=== PATIENT | female | born 1970 | race Caucasian/White ===

== ENCOUNTER 2022-11-15 09:47 | Outpatient (OUT) | payer OTHER, SELFPAY ==
--- NOTE | 2022-11-15 10:05 | XR_ITS ---
[address] [address] Patient Name: KAROL MARCOS MRN: [id number] date: 1970 Sex: F Assigned Patient Location: [facility] Current Patient Location: [facility] Accession/Order Number: [id number] Exam Date: 11/15/2022 10:05 Report Date: 11/15/2022 11:44 At the request of: JANETTE ZARATE Procedure: XR knee LT 3V PROCEDURE: XR knee LT 3V COMPARISON: None. HISTORY: Left knee pain M25.562 FINDINGS: BONES:No acute fracture or dislocation. Minimal degenerative changes of the medial compartment with marginal osteophyte formation SOFT TISSUES:Negative. No visible soft tissue swelling. EFFUSION:None visible. OTHER: Negative. XR/XR knee LT 3V IMPRESSION: Minimal degenerative changes of the medial compartment Electronically authenticated by: KODY GARRISON Date: 11/15/2022 11:44
== END 2022-11-15 09:48 | disposition home or self-care (01) ==
LOC: RAD 09:53
PROVIDERS: PCP Nurse Practitioner Family; Visit Provider Nurse Practitioner Family
DX: M25.562 Pain in left knee (principal)
CPT/HCPCS: 73562

== ENCOUNTER 2022-12-10 06:41 | Outpatient (OUT) | payer OTHER, SELFPAY ==
--- NOTE | 2022-12-10 06:45 | MR_ITS ---
[place] [id number] Patient Name: KAROL MARCOS MRN: [id number] date: 1970 Sex: F Assigned Patient Location: MRI Current Patient Location: MRI Accession/Order Number: [id number] Exam Date: 12/10/2022 07:00 Report Date: 12/10/2022 15:14 At the request of: DILEEP STONE Procedure: MR knee LT wo con EXAM: MR knee LT wo con REASON FOR EXAM: Internal Derangement OF Left Knee M25.92. TECHNIQUE: Multiplanar, multisequence imaging of the left knee was performed without contrast COMPARISON: Plain radiograph 11/15/2022. FINDINGS: Laterally, the iliotibial band, fibular collateral ligament, popliteus tendon and biceps tendon are intact. The ACL is intact. The lateral meniscus demonstrates normal morphology with globular intrasubstance signal, which does not meet MRI criteria for tear. Intermediate grade chondrosis of the lateral compartment. Medially, the medial collateral ligament is intact. The PCL is intact. There is complete radial tear involving the body and anterior horn junction of the medial meniscus. Meniscal extrusion. There is also horizontal undersurface oblique tear extending into the body posterior horn junction. Diffuse high-grade chondrosis of the medial compartment with subchondral marrow edema. Marginal osteophytes are present. The extensor mechanism is intact. Intermediate to high-grade chondrosis of the patellofemoral cartilage, most notable in the inferior median ridge. The bone marrow signal is without fracture. Moderate size joint effusion. The regional musculature is without muscle strain or tendon tear. MR/MR knee LT wo con IMPRESSION: 1. Complex medial meniscal tear including complete radial tear of the body and anterior horn junction. 2. 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 3. Joint effusion Electronically authenticated by: BRITTNI TIDWELL Date: 12/10/2022 15:14
== END 2022-12-10 06:42 | disposition home or self-care (01) ==
LOC: MRI 06:41
PROVIDERS: PCP Nurse Practitioner Family; Visit Provider Orthopaedic Surgery
DX: M23.92 Unspecified internal derangement of left knee (principal)
CPT/HCPCS: 73721

== ENCOUNTER 2023-01-02 10:29 | Outpatient (RCR) | payer OTHER, SELFPAY | END 2023-01-23 16:49 | disposition home or self-care (01) | LOC: PT 10:29 | PROVIDERS: PCP Nurse Practitioner Family; Visit Provider Orthopaedic Surgery | DX: M25.562 Pain in left knee (principal); M23.92 Unspecified internal derangement of left knee; S83.242D Other tear of medial meniscus, current injury, left knee, subsequent encounter; M17.12 Unilateral primary osteoarthritis, left knee | CPT/HCPCS: 97110; 97116; 97161; 97530 ==

== ENCOUNTER 2023-01-23 07:29 | Outpatient (OUT) | payer OTHER, SELFPAY ==
--- NOTE | 2023-01-23 07:38 | XR_ITS ---
The [address] [address] Patient Name: KAROL MARCOS MRN: [id number] date: 1970 Sex: F Assigned Patient Location: [facility] Current Patient Location: [facility] Accession/Order Number: [id number] Exam Date: 01/23/2023 07:42 Report Date: 01/23/2023 08:23 At the request of: JORDI MAST Procedure: XR abdomen 1V EXAMINATION: XR abdomen 1V HISTORY: Kidney Stone N20.0 COMPARISON: XR KUB 07/18/2022 FINDINGS: KIDNEY/URETER - RIGHT: No visible renal or ureteral calcifications. KIDNEY/URETER - LEFT: No visible renal or ureteral calcifications. PELVIS: No visible ureteral stones. Stable pelvic calcifications compatible with phleboliths. BOWEL: No abnormal dilation or deviation. BONES: No acute abnormality. OTHER: Negative. No abnormal gaseous collections. XR/XR abdomen 1V IMPRESSION: 1. No appreciable urinary tract calculi. Evaluation is slightly limited by dense overlying bowel content. Electronically authenticated by: ZENAIDA TALBOT Date: 01/23/2023 08:23
== END 2023-01-23 07:30 | disposition home or self-care (01) ==
LOC: RAD 07:30
PROVIDERS: PCP Nurse Practitioner Family; Visit Provider Urology
DX: N20.0 Calculus of kidney (principal)
CPT/HCPCS: 74018

== ENCOUNTER 2023-04-30 09:23 | Outpatient (OUT) | payer OTHER, SELFPAY ==
--- NOTE | 2023-04-30 09:25 | MM_ITS ---
Patient Name: KAROL MARCOS MR#: [id number] : 1970 Exam Date: 04/30/2023 Ordering Doctor: DR Neymar Win . RADIOLOGY REPORT PROCEDURE: MM TOMOSYNTHESIS SCREENING BI COMPARISON: MG MAMM SCREEN 3D ANN-MARIE CAD, 03/21/2021. MG MAMM SCREEN 3D ANN-MARIE CAD, 03/27/2022. INDICATIONS: screening Calculator Name NCI Breast Cancer Risk Assessment Tool 5 Year Breast Cancer Risk 1.90% Lifetime Breast Cancer Risk 13.60% Personal Breast Cancer No Personal Ovarian Cancer No Treatments None Family Cancers Father with bone & prostate cancer at age 69. LOCATION: [facility] BREAST COMPOSITION: Heterogeneously dense,which may obscure small masses. FINDINGS: DIAGNOSTIC CATEGORY 0--INCOMPLETE: NEED ADDITIONAL IMAGING EVALUATION. Scattered benign-appearing nodules are present. Scattered benign-appearing calcifications are present. Scattered benign-appearing lymph nodes are present. RIGHT BREAST: New cluster of very faint microcalcifications and increased density, ill-defined measuring 2.2 x 1.5 x 1.1 cm upper-outer quadrant, mid to posterior breast. Spot magnification and ultrasound follow-up is recommended. LEFT BREAST: No significant suspicious finding. RECOMMENDATIONS: ADDITIONAL MAMMOGRAPHIC VIEWS REQUIRED: RIGHT BREAST - spot magnification ULTRASOUND: RIGHT BREAST PLEASE NOTE: A NORMAL MAMMOGRAM DOES NOT EXCLUDE THE POSSIBILITY OF BREAST CANCER. A CLINICALLY SUSPICIOUS PALPABLE LUMP SHOULD BE BIOPSIED. Dictated by: Elijah Ricks MD on 04/30/2023 at 10:34 Approved by: Elijah Ricks MD on 04/30/2023 at 10:37
--- OUTSIDE RECORDS SUMMARY | 2023-04-30 09:39 | XMS_ITS | CCD ---
Author Name Unknown Address [address] [place] [address] Organization [facility] Care Team Providers Care Customer Support Advisor Name Role Phone Sue Win Primary Care Provider [phone] Sue Win Primary Care Physician MD Eros Mast Attending Provider MD Sue Win Primary Care Provider [phone] BERHANE YANG Referring Unavailable SUE WIN Primary Care Unavailable YAIMA ., DR ROGERS Consulting Unavailable HOY ., DR ROGERS Primary Care Unavailable HOY ., DR ROGERS Attending Unavailable HOY ., DR ROGERS Admitting Unavailable ZIEBER, DR TUCKER Martin Consulting Unavailable HOY ., DR ROGERS Consulting Unavailable HOY ., DR ROGERS Primary Care Unavailable HOY ., DR ROGERS Attending Unavailable HOY ., DR ROGERS Admitting Unavailable ZIEBER, DR TUCKER Martin Consulting Unavailable TIMMIS, DR GABRIEL Consulting Unavailable HOY ., DR ROGERS Primary Care Unavailable TIMMIS, DR GABRIEL Attending Unavailable TIMMIS, DR GABRIEL Admitting Unavailable [place], DR KODY Pappas Consulting Unavailable HOY ., DR ROGERS Consulting Unavailable HOY ., DR ROGERS Attending Unavailable HOY ., DR ROGERS Admitting Unavailable HOY ., DR ROGERS Primary Care Unavailable KEZIA, DR EROS Mckeon Consulting Unavailable MADDY LAUGNA Consulting Unavailable AGUBOSIDEYANIRA Colvin Consulting Unavailable SHRADDHA, GEORGE Consulting Unavailable COOK, DR EROS Mckeon Consulting Unavailable TYREEY ., DR ROGERS Primary Care Unavailable COOK, DR EROS Mckeon Attending Unavailable KEZIA, DR EROS Mckeon Admitting Unavailable ZIEBOFELIA, DR TUCKER Martin Consulting Unavailable COOK, DR EROS Mckeon Consulting Unavailable HOY ., DR ROGERS Primary Care Unavailable COOK, DR EROS Mckeon Attending Unavailable COOK, DR EROS Mckeon Admitting Unavailable HOY ., DR ROGERS Consulting Unavailable YAIMA ., DR ROGERS Primary Care Unavailable YAIMA Thakkar, DR ROGERS Attending Unavailable YAIMA ., DR ROGESR Admitting Unavailable [place], DR KODY Pappas Consulting Unavailable KEZIA, DR EROS Mckeon Consulting Unavailable YAIMA ., DR ROGERS Primary Care Unavailable COOK, DR EROS Mckeon Attending Unavailable KEZIA, DR EROS Mckeon Admitting Unavailable DAHIANA, DR TUCKER Martin Consulting Unavailable KEZIA, DR EROS Mckeon Consulting Unavailable YAIMA ., DR ROGERS Primary Care Unavailable COOK, DR EROS Mckeon Attending Unavailable COOK, DR EROS Mckeon Admitting Unavailable DAHIANA, DR TUCKER Martin Consulting Unavailable Shubham Rodrigues Unavailable MD Sue Win Primary Care Provider [phone] MD Shubham Rodrigues Attending Provider Eros MAST Attending Unavailable Eros MAST Attending Unavailable KEZIA, Eros Mckeon Attending Unavailable Sue Win Primary Care Unavailable Ravi, Shubham Admitting Unavailable Shubham Rodrigues Attending Unavailable Sue Win Primary Care Unavailable Olexa, Shubham Admitting Unavailable Olexa, Shubham Attending Unavailable Allergies Allergy Classification Reported Allergen(s) Allergy Type Date of Onset Reaction(s) Facility (1 source) No Known Medication Allergies; Translations: [No Known Medication Allergies] Propensity to adverse reactions (disorder) [facility] Repository Medications Current Medications Medication Drug Class(es) Dates Sig (Normalized) Sig (Original) acetaminophen 325 mg / HYDROcodone bitartrate 5 mg oral tablet (10 sources) Opioid Agonist Start: 12-31-2022 take 1 tablet by mouth every four hours as needed for pain HYDROcodone-Aceta minophen 5-325 MG 1 tablet as needed for pain Orally up to every 4 hrs for 5 days PB: [id number] Dec, Active Start: 11-29-2021 End: 12-13-2021 take 1 tablet by mouth every four to six hours Hydrocodone-Acetaminophen Discontinued 1 TAB PO EVERY 4-6 HOURS 10 3 November 29, 2021 December 13, 2021 2:25pm Claritin-D 12 Hour (6 sources) Claritin-D 12 Ho ur Active diclofenac sodium 75 mg delayed release oral tablet (8 sources) Nonsteroidal Anti-inflammatory Drug Start: 11-29-2021 take 75 mg by mouth twice daily Diclofenac Sodium Active 75 MG PO Twice daily November 29, 2021 12:00am Start: 01-19-2019 take 75 mg by mouth twice caden y diclofenac sodium 75 mg, Oral, BID Start Date: 01/19/19 Status: Ordered dicyclomine hydrochloride 20 mg oral tablet (16 sources) Anticholinergic Start: 11-21-2021 take 20 mg by mouth twice daily Dicyclomine Active 20 MG PO Twice daily November 29, 2021 12:00am Start: 11-03-2018 take 1 tablet by gee th every eight hours Dicyclomine HCl 20 MG 1 tablet Orally Three times a day for 30 days Oct, Active esomeprazole 40 mg oral tablet (13 sources) Proton Pump Inhibitor Start: 12-13-2021 take 40 mg by mouth once daily in the morning Esomeprazole Magnesium Active 40 MG PO Every morning December 13, 2021 12:00am Start: 12-13-2021 take 40 mg by mouth once daily Esomeprazole Magnesium Active 40 MG PO Daily December 13, 2021 12:00am Start: 12-13-2021 take 40 mg by mouth once daily Esomeprazole Magnesium Active 40 MG PO Daily December 13, 2021 12:00am Start: 02-09-2020 take 2 capsules by m outh once daily [facility] ESOMEPRAZOLE MAGNESIUM 20 MG delayed release capsule TAKE 2 CAPSULES BY MOUTH EVERY DAY 0 02/09/2020 Active Esomeprazole Mag nesium Active Phylicia (3 sources) Histamine-1 Receptor Antagonist Start: 11-21-2021 Phylicia Oral Start Date: 11/21/21 Status: Ordered take 1 tablet by mouth once caden y fexofenadine (PHYLICIA ALLERGY) 180 MG tablet Take 180 mg by mouth daily 0 Active hyoscyamine sulfate 0.125 mg oral tablet (8 sources) Start: 12-25-2022 take 0.125 mg by mouth once daily Hyoscyamine Sulfate Active 0.125 MG PO Daily December 25, 2022 12:00am Start: 02-04-2020 take 1 tablet under the tongue four times daily as needed for pain hyoscyamine (LEVSIN/SL) 125 MCG sublingual tablet DISSOLVE 1 TABLET UNDER THE TONGUE 4 TIMES DAILY NEEDED FOR ABDOMINAL PAIN 0 02/04/2020 Active Lactobacillus Combination No.4 (Probiotic) 3 billion cell Capsule (1 source) Start: 12-25-2022 take 3 capsules by mouth once daily at bedtime Lactobacillus Combination No.4 (Probiotic) 3 billion cell Capsule Active 1 CELL PO Daily at bedtime December 25, 2022 12:00am levothyroxine sodium 0.05 mg oral tablet (16 sources) l-Thyrox ine Start: 11-29-2021 take 50 ug by mouth once daily in the morning Levothyroxine Active 50 MCG PO Every morning November 29, 2021 12:00am Start: 02-07-2019 take 1 tablet by gee th once daily levothyroxine (SYNTHROID) 50 MCG tablet TAKE 1 TABLET BY MOUTH EVERY DAY 11 02/07/2019 Active Start: 01-19-2019 take 1 tablet by gee th once daily levothyroxine 50 mcg (0.05 mg) Tab 50 microgram = 1 tab(s), Oral, Daily Start Date: 01/19/19 Status: Ordered Loratadine / Pseudoephedrine (3 sources) alpha-Adrenergic Agonist Start: 01-19-2019 take 1 tablet by mouth every twelve hours Claritin-D 1 tab(s), Oral, q12hr Start Date: 01/19/19 Status: Ordered Loratadine-Pseud oephedrine (CLARITIN-D 24 HOUR PO) Indications: Routine gynecological examination Take by mouth. 0 Active pantoprazole 40 mg delayed release oral tablet (10 sources) Proton Pump Inhibitor Start: 12-27-2018 take 1 tablet by mouth once daily Protonix 40 mg Tab-DR 40 mg = 1 tab(s), Oral, Daily Start Date: 01/19/19 Status: Ordered Completed/Discontinued Medications Medication Drug Class(es) Dates Sig (Normalized) Sig (Original) ciprofloxacin 500 mg oral tablet (7 sources) Quinolone Antimicrobial Start: 12-21-2021 End: 12-25-2022 take 1 tablet by mouth every two hours Ciprofloxacin Hcl (Cipro) 500 mg tablet Discontinued 500 MG PO Q12H December 21, 2021 12:00am December 25, 2022 8:39am administer dose at least 2 hrs before/6 hrs after dairy products, calcium, zinc, and/or iron-containing products Start: 12-21-2021 take 1 tablet by gee th every two hours Ciprofloxacin Hcl (Cipro) 500 mg tablet Active 500 MG PO Q12H December 21, 2021 12:00am administer dose at least 2 hrs before/6 hrs after dairy products, calcium, zinc, and/or iron-containing products Start: 12-21-2021 take 1 tablet by gee th every two hours Ciprofloxacin Hcl (Cipro) 500 mg tablet Active 500 MG PO Q12H December 21, 2021 12:00am administer dose at least 2 hrs before/6 hrs after dairy products, calcium, zinc, and/or iron-containing products Start: 12-21-2021 take 1 tablet by gee th every two hours Ciprofloxacin Hcl (Cipro) 500 mg tablet Active 500 MG PO Q12H December 21, 2021 12:00am administer dose at least 2 hrs before/6 hrs after dairy products, calcium, zinc, and/or iron-containing products Start: 11-21-2021 ciprofloxacin 500 mg Tab 500 mg = 1 tab(s) Start Date: 11/21/21 Status: Ordered oxybutynin chloride 5 mg oral tablet (13 sources) Cholinergic Muscarinic Antagonist Start: 11-29-2021 End: 12-25-2022 take 5 mg by mouth twice daily Oxybutynin Chloride Discontinued 5 MG PO Twice daily November 29, 2021 12:00am December 25, 2022 8:41am Start: 11-21-2021 Oxytrol 5 mg T ab 5 mg = 1 tab(s) Start Date: 11/21/21 Status: Ordered sucralfate 1000 mg oral tablet (15 sources) Aluminum Complex Start: 11-29-2021 End: 12-25-2022 take 1 g by mouth twice daily Sucralfate Discontinued 1 GM PO Twice daily November 29, 2021 12:00am December 25, 2022 8:41am Start: 11-21-2021 sucralfate tab 1 gm = 1 tab(s) Start Date: 11/21/21 Status: Ordered Start: 11-21-2021 sucralfate tab 1 gm = 1 tab(s) Start Date: 11/21/21 Status: Ordered take 10 mL by mouth twice daily Sucralfate 1 GM/10ML 10 mL on an empty stomach Orally Twice a day Active take 1 tablet by gee th twice daily sucralfate (CARAFATE) 1 GM tablet Take 1 g by mouth 2 times daily 0 Active Problems Active Problems Problem Classification Problem Date Documented Da te Episodic/Chronic Abdominal pain (15 sources) Unspecified abdominal pain; Translations: [Right upper quadrant pain] Onset: 11-13-2021 Episodic Calculus of urinary tract (20 sources) Ureteric stone; Translations: [Calculus of ureter] Onset: 11-16-2021 Episodic Diseases of white blood cells (1 source) Elevated white blood cell count, unspecified; Translations: [ELEVATED WHITE BLOOD CELL COUNT UNS] Onset: 11-16-2021 Chronic Essential hypertension (1 source) Essential (primary) hypertension; Translations: [ESSENTIAL PRIMARY HYPERTENSION] Onset: 11-16-2021 Chronic Gastritis and duodenitis (6 sources) Bile-induced gastritis; Translations: [Other gastritis without bleeding] Episodic Joint disorders and dislocations; trauma-related (5 sources) Unspecified internal derangement of right knee; Translations: [Chondromalacia patellae, right knee] Onset: 12-12-2021 Chronic Joint disorders and dislocations; trauma-related (8 sources) Derangement of left knee; Translations: [Unspecified internal derangement of left knee] Chronic Joint disorders and dislocations; trauma-related (4 sources) Other tear of medial meniscus, current injury, right knee, initial encounter; Translations: [Other tear of medial meniscus, current injury, right knee, subsequent encounter] Onset: 12-13-2021 Episodic Joint disorders and dislocations; trauma-related (3 sources) Other tear of medial meniscus, current injury, left knee, initial encounter Episodic Lymphadenitis (2 sources) Cervical lymphadenopathy 01-19-2019 Episodic Osteoarthritis (20 sources) Unilateral primary osteoarthritis, right knee; Translations: [Osteoarthritis of right knee joint] Onset: 10-06-2021 Chronic Other ear and sense organ disorders (2 sources) Otalgia 01-19-2019 Episodic Other female genital disorders (1 source) Vaginal discharge; Translations: [Other specified noninflammatory disorders of vagina] Episodic Other gastrointestinal disorders (6 sources) Irritable bowel syndrome; Translations: [Irritable bowel syndrome without diarrhea] Chronic Other gastrointestinal disorders (6 sources) Abdominal bloating; Translations: [Abdominal distension (gaseous)] Episodic Other non-traumatic joint disorders (7 sources) Pain in right knee; Translations: [PAIN IN RIGHT KNEE] Onset: 10-03-2021 Episodic Other non-traumatic joint disorders (2 sources) Pain in left knee Episodic Other upper respiratory disease (2 sources) Congestion of nasal sinus 01-19-2019 Episodic Residual codes; unclassified (3 sources) Other specified postprocedural states Episodic Thyroid disorders (7 sources) Thyroid nodule; Translations: [Nontoxic single thyroid nodule] Onset: 11-16-2021 01-19-2019 Chronic Unclassified (1 source) Patient encounter status; Translations: [Women's annual routine gynecological examination] Unclassified (1 source) CONTACT W/AND (SUSP) EXPOS COVID-19; Translations: [CONTACT W/AND (SUSP) EXPOS COVID-19] Onset: 11-16-2021 Unclassified (1 source) Complex tear of medial meniscus, current injury, left knee, initial encounter; Translations: [Complex tear of medial meniscus, current injury, left knee, initial encounter] Onset: 01-01-2023 Unclassified (1 source) Encounter for preprocedural laboratory examination; Translations: [Encounter for preprocedural laboratory examination] Onset: 12-25-2022 Past or Other Problems Problem Classification Problem Date Documented Da te Episodic/Chronic Bacterial infection; unspecified site (1 source) Unspecified Escherichia coli [E. 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] Onset: 11-16-2021 Episodic Other screening for suspected conditions (not mental disorders or infectious disease) (4 sources) Encounter for screening mammogram for malignant neoplasm of breast; Translations: [ENC SCR MAMMO MALIG NEOPLASM BREAST] Onset: 03-27-2022 Episodic Residual codes; unclassified (1 source) Family history of malignant neoplasm of other organs or systems; Translations: [FAM HX MALIG NEOPLASM OTH ORGN/SYS] Onset: 03-30-2022 Episodic Sprains and strains (1 source) Sprain of medial collateral ligament of right knee, initial encounter; Translations: [SPRAIN MCL RIGHT KNEE INITIAL ENC] Onset: 12-13-2021 Episodic Urinary tract infections (1 source) Pyonephrosis; Translations: [PYONEPHROSIS] Onset: 11-16-2021 Episodic Results Test Name Value Interpretation Reference Range Facility Ambulatory Visit Summaryon 1 Ambulatory Visit Summary KAROL PALSCENCIA :1970 Visit Date:01/27/2023 Ambulatory Visit Instructions Your Diagnosis Kidney stone Tests Performed Urnls Dip Stick Auto w/o Microscopy POC 32965 XR Abdomen 1 View -- Results Pending -- Please visit your patient portal for your results or contact your primary care physician. Your Care Team Attending Physician - Eros MAST MD Primary Care Physician - Sue Win MD This Is Your Medications List Contact prescribing physician if questions or concerns aspirin (aspirin 81 mg Chew Tab) diclofenac (diclofenac sodium) dicyclomine (dicyclomine 20 mg Tab) fexofenadine (Phylicia) levothyroxine (levothyroxine 50 mcg (0.05 mg) Tab) lisinopril (lisinopril 10 mg Tab) loratadine-pseudoep hedrine (Claritin-D) pantoprazole (Protonix 40 mg Tab-DR) sucralfate (sucralfate tab) Procedures Performed ESWL - Extracorporeal shockwave lithotripsy for renal calculus (12/21/2021), Cystoscopic insertion of ureteric stent (11/29/2021), Cystoscope (11/13/2021), Colonoscopy (08/26/2018), D&C - Dilatation and curettage, Diagnostic endoscopy. Discharge Vitals Heart Rate (Peripheral) 72 Blood Pressure 132/81 Height 164 cm Height 65 in Weight 108 kg Weight 237.6 lb BMI 40.15 What to do next Scheduled Follow-Up Appointments Friday 8:00 AM EDT With: Eros MAST MD Where: [facility] Patient Educationon 01-28-20 23 Patient Education Nephrology Dietary Guidelines to Help Prevent Kidney Stones Kidney stones are deposits of minerals and salts that form inside your kidneys. Your risk of developing kidney stones may be greater depending on your diet, your lifestyle, the medicines you take, and whether you have certain medical conditions. Most people can lower their chances of developing kidney stones by following the instructions below. Your dietitian may give you more specific instructions depending on your overall health and the type of kidney stones you tend to develop. What are tips for following this plan? Reading food labels ? Choose foods with no salt added or low-salt labels. Limit your salt (sodium) intake to less than 1,500 mg a day. ? Choose foods with calcium for each meal and snack. Try to eat about 300 mg of calcium at each meal. Foods that contain 200?500 mg of calcium a serving include: ? 8 oz (237 mL) of milk, calcium-fortifiedno n-dairy milk, and calcium-fortifiedfr uit juice. Calcium-fortified means that calcium has been added to these drinks. ? 8 oz (237 mL) of kefir, yogurt, and soy yogurt. ? 4 oz (114 g) of tofu. ? 1 oz (28 g) of cheese. ? 1 cup (150 g) of dried figs. ? 1 cup (91 g) of cooked broccoli. ? One 3 oz (85 g) can of sardines or mackerel. Most people need 1,000?1,500 mg of calcium a day. Talk to your dietitian about how much calcium is recommended for you. Shopping ? Buy plenty of fresh fruits and vegetables. Most people do not need to avoid fruits and vegetables, even if these foods contain nutrients that may contribute to kidney stones. ? When shopping for convenience foods, choose: ? Whole pieces of fruit. ? Pre-made salads with dressing on the side. ? Low-fat fruit and yogurt smoothies. ? Avoid buying frozen meals or prepared deli foods. These can be high in sodium. ? Look for foods with live cultures, such as yogurt and kefir. ? Choose high-fiber grains, such as whole-wheat breads, oat bran, and wheat cereals. Cooking ? Do not add salt to food when cooking. Place a salt shaker on the table and allow each person to add his or her own salt to taste. ? Use vegetable protein, such as beans, textured vegetable protein (TVP), or tofu, instead of meat in pasta, casseroles, and soups. Meal planning ? Eat less salt, if told by your dietitian. To do this: ? Avoid eating processed or pre-made food. ? Avoid eating fast food. ? Eat less animal protein, including cheese, meat, poultry, or fish, if told by your dietitian. To do this: ? Limit the number of times you have meat, poultry, fish, or cheese each week. Eat a diet free of meat at least 2 days a week. ? Eat only one serving each day of meat, poultry, fish, or seafood. ? When you prepare animal protein, cut pieces into small portion sizes. For most meat and fish, one serving is about the size of the palm of your hand. ? Eat at least five servings of fresh fruits and vegetables each day. To do this: ? Keep fruits and vegetables on hand for snacks. ? Eat one piece of fruit or a handful of berries with breakfast. ? Have a salad and fruit at lunch. ? Have two kinds of vegetables at dinner. ? Limit foods that are high in a substance called oxalate. These include: ? Spinach (cooked), rhubarb, beets, sweet potatoes, and Togolese chard. ? Peanuts. ? Potato chips, gambian fries, and baked potatoes with skin on. ? Nuts and nut products. ? Chocolate. ? If you regularly take a diuretic medicine, make sure to eat at least 1 or 2 servings of fruits or vegetables that are high in potassium each day. These include: ? Avocado. ? Banana. ? Sabine, prune, carrot, or tomato juice. ? Baked potato. ? Cabbage. ? Beans and split peas. Lifestyle ? Drink enough fluid to keep your urine pale yellow. This is the most important thing you can do. Spread your fluid intake throughout the day. ? If you drink alcohol: ? Limit how much you use to: ? 0?1 drink a day for women who are not . ? 0?2 drinks a day for men. ? Be aware of how much alcohol is in your drink. In the [place] one drink equals one 12 oz bottle of beer (355 mL), one 5 oz glass of wine (148 mL), or one 1? oz glass of hard liquor (44 mL). ? Lose weight if told by your health care provider. Work with your dietitian to find an eating plan and weight loss strategies that work best for you. General information ? Talk to your health care provider and dietitian about taking daily supplements. You may be told the following depending on your health and the cause of your kidney stones: ? Not to take supplements with vitamin C. ? To take a calcium supplement. ? To take a daily probiotic supplement. ? To take other supplements such as magnesium, fish oil, or vitamin B6. ? Take [id number] and prescription medicines only as told by your health care provider. These include supplements. What foods should I limit? Limit your in (more content not included)... Normal Posey [facility] Urology Office/Clinic Noteon 01-27-2023 Urology Office/Clinic Note Chief Complaint Pt is here for 6 month w/ KUB HPI Staff 52 yo female here for 6 month f/u with KUB. Previous Dx: kidney stone. S/p ESWL 12/21/21, Cysto/stent placement 11/29/21, and Cysto 11/13/21. Litholink done 08/12/22. KUB done 01/23/23 at [facility]. Dysuria: denies Incomplete bladder emptying: denies Hematuria: denies Frequency: denies Urgency: denies Nocturia: 1x a night Stream: steady stream Leaking: denies Post void dripping: denies Wearing pads/ Depends: denies Urge incontinence: denies Stress incontinence: mild coughing Incontinence without Sensory Awareness: denies Abdominal pain: denies Flank pain: denies Sexual complaints: _ History of Present Illness Tests reviewed: reviewed UA and KUB. I have reviewed the previous health record information and history for this patient from . I have reviewed and verified the staff HPI to be accurate for this encounter. There have been no associated fever, chills, flank pain, or blood in the urine. Denies any urinary infections since last encounter. Review of Systems PHQ Score Initial Depression Screen Score: 0 ROS - Provider Constitutional: denies weight loss, denies hot flashes. Eyes: denies eye problems. Gastrointestinal: denies nausea, denies vomiting. Cardiovascular: denies chest pain or angina. Integumentary: no dryness Musculoskeletal: denies musculoskeletal symptoms. ENMT: denies otolaryngeal symptoms. Respiratory: no shortness of breath. Heme/Lymph: denies easy bleeding tendency, denies easy bruising tendency. Psychiatric: no confusion, no anxiety. Genitourinary: See HPI. Physical Exam Vitals & Measurements HR: 72(Peripheral) BP: 132/81 HT: 65 in HT: 164 cm WT: 108 kg WT: 237.6 lb BMI: 40.15 General Appearance: alert , no acute distress, well nourished, well developed female. Genitourinary: bladder nonpalpable, no flank pain. Assessment/Plan 1. Kidney stone (N20.0: Calculus of kidney) S/p Cysto 11/13/21 S/p Cysto/stent placement 11/29/21 S/p ESWL 12/21/21 KUB 07/18/22 - Bilateral nephrolithiasis 2mm in both kidneys. LithoLink 08/12/22 - low void volume, urine citrate is elevated, calcium in urine is slightly elevated KUB 01/23/23 - no stones noted, evaluation limited due to dense bowel overlying content Pt denies passing any stones recently. Discussed the imaging findings with pt, no stones noted. Discussed LithoLink workup with pt, pt needs to drink more fluids and decrease sodium intake. Will continue to monitor. Follow up in 1 yr w/ KUB. All questions/concerns were discussed. Pt to call the office if she encounters any issues prior. Pt acknowledges understanding. -Increase fluids. -Decrease sodium intake. -Will order KUB Overall she is doing well. No stones passed. Denies gross hematuria. KUB demonstrates no obvious calculi but the previous x-ray had demonstrated small bilateral stones up to 2 mm. Most likely the stones are still present but this not well seen secondary to overlying bowel gas etc. We then went over her 24-hour urine analysis and as noted we will recommend decreased sodium intake which hopefully will decrease calcium output in the urine. She will also attempt to increase urine volume. 1 year KUB at this point and she knows to call for difficulties prior to that visit Follow-up With When Contact Information KEZIA ARREGUIN, Eros Mckeon, URL In [address] [id number]- Additional Instructions: w/KUB Patient Education Dietary Guidelines to Help Prevent Kidney Stones IRadha, personally scribed for Dr. Mast on 01/27/2023 08:33:07. . Documentation recorded by the scribe, Radha Townsend, accurately reflects the services(s) I performed and decisions made by me. Authenticated by Dr. Mast on 01/27/2023 08:49:28. Portions of this record may have been created with voice recognition artificial intelligence software, specifically [employer] and or [employer]. Substitutions may have occurred due to the inherent limitations of voice recognition and artificial intelligence software. Problem List/Past Medical History Ongoing Cervical adenopathy History of kidney stones Kidney stone Right ear pain Sinus congestion Thyroid nodule Ureteral stone Historical No qualifying data Procedure/Surgical History ESWL - Extracorporeal shockwave lithotripsy for renal calculus (12/21/2021), Cystoscopic insertion of ureteric stent (11/29/2021), Cystoscope (11/13/2021), Colonoscopy (08/26/2018), D&C - Dilatation and curettage, Diagnostic endoscopy. Medications Phylicia, Oral aspirin 81 mg Chew Tab, Chewed, Daily Claritin-D, 1 tab(s), Oral, q12hr diclofenac sodium, 75 mg, Oral, BID dicyclomine 20 mg Tab, 20 mg= 1 tab(s) levothyroxine 50 mcg (0.05 mg) Tab, 50 mcg= 1 tab(s), Oral, Daily lisinopril 10 mg Tab Protonix 40 mg T (more content not included)... Normal [facility] Comment on above: Result Comment: Elec tronically Signed By: Eros MAST MD\.br\Date and Time Signed: 01/27/23 08:50 EDT\.br\Electronically Co-Signed By: Radha Townsend\.br\Date and Time Co-Signed: 01/27/23 08:33 EDT RAD - MISCon 01-24-2023 RAD - MISC [id number] [id number]:127 Normal [facility] Alanine aminotransferase [En zymatic activity/volume] in Serum or PlasmaOrdered By: Shubham Rodrigues on 12-25-2022 ALT [Catalytic activity/Vol] 27 U/L 7-52 [facility] Albumin [Mass/volume] in Ser um or Plasma by Bromocresol green (BCG) dye binding methoOrdered By: Shubham Rodrigeus on 12-25-2022 Albumin BCG dye [Mass/Vol] 3.9 g/dL 3.5-5.7 [facility] Alkaline phosphatase [Enzyma tic activity/volume] in Serum or PlasmaOrdered By: Shubham Rodrigues on 12-25-2022 ALP [Catalytic activity/Vol] 138 U/L 34-104 [facility] Aspartate aminotransferase [ Enzymatic activity/volume] in Serum or PlasmaOrdered By: Shubham Rodrigues on 12-25-2022 AST [Catalytic activity/Vol] 20 U/L 13-39 [facility] Basophils Auto (Bld) [#/Vol] Ordered By: Shubham Rodrigues on 12-25-2022 Basophils (Bld) [#/Vol] 0.1 10*3/uL 0.0-0.2 [facility] Basophils/100 WBC Auto (Bld) Ordered By: Shubham Rodrigues on 12-25-2022 Basophils/100 WBC (Bld) 0.8 % . [facility] Bilirubin.total [Mass/volume ] in Serum or PlasmaOrdered By: Shubham Rodrigues on 12-25-2022 Bilirubin [Mass/Vol] 0.4 mg/dL 0.3-1.0 [facility] CMP with reflex to A1Con Albumin [Mass/Vol] 3.9 g/dL Normal 3.5-5.7 [facility] Comment on above: Performed By: #### C BC, CMP wRFX A1C #### [facility] [address] Albumin/Globulin [Mass ratio] 1.4 {ratio} Normal [facility] Comment on above: Performed By: #### C BC, CMP wRFX A1C #### [facility] [address] [place] [address] [place] ALP [Catalytic activity/Vol] 138 U/L High 34-104 [facility] Comment on above: Result Comment: PERF ORMED BY: [place] [address] PATHOLOGIST ANALYTICS INTERN MULUGETA ANGLIN M.D. Performed By: #### C BC, CMP wRFX A1C #### [facility] [address] [place] [address] [place] ALT [Catalytic activity/Vol] 27 U/L Normal 7-52 [facility] Comment on above: Performed By: #### C BC, CMP wRFX A1C #### [facility] [address] [place] [id number] [facility] Anion gap [Moles/Vol] 10.0 mmol/L Normal 6.0-15.0 [facility] Comment on above: Performed By: #### C BC, CMP wRFX A1C #### [facility] [address] [place] [address] [place] AST [Catalytic activity/Vol] 20 U/L Normal 13-39 [facility] Comment on above: Performed By: #### C BC, CMP wRFX A1C #### [facility] [address] Bilirubin [Mass/Vol] 0.4 mg/dL Normal 0.3-1.0 [facility] Comment on above: Performed By: #### C BC, CMP wRFX A1C #### [facility] [address] [place] [address] [place] Calcium [Mass/Vol] 9.1 mg/dL Normal 8.6-10.3 [facility] Comment on above: Performed By: #### C BC, CMP wRFX A1C #### [facility] [address] [place] [id number] [place] Chloride [Moles/Vol] 104 mmol/L Normal 98-107 [facility] Comment on above: Performed By: #### C BC, CMP wRFX A1C #### [facility] [address] [place] [id number] [place] CO2 [Moles/Vol] 30.2 mmol/L Normal 21.0-31.0 [facility] Comment on above: Performed By: #### C BC, CMP wRFX A1C #### [facility] [address] [place] [id number] [place] Creatinine [Mass/Vol] 0.69 mg/dL Normal 0.60-1.20 [facility] Comment on above: Performed By: #### C BC, CMP wRFX A1C #### [facility] [address] [place] [address] [place] GFR/1.73 sq M.predicted MDRD (S/P/Bld) [Vol rate/Area] mL/min/{1.73_m2} [facility] Comment on above: Performed By: #### C BC, CMP wRFX A1C #### [facility] [address] [place] [address] [place] Globulin (S) [Mass/Vol] 2.8 g/dL Normal [facility] Comment on above: Performed By: #### C BC, CMP wRFX A1C #### [facility] [address] Glucose [Mass/Vol] 99 mg/dL Normal 70-100 [facility] Comment on above: Performed By: #### C BC, CMP wRFX A1C #### [facility] [address] Potassium [Moles/Vol] 4.2 mmol/L Normal 3.5-5.1 [facility] Comment on above: Performed By: #### C BC, CMP wRFX A1C #### [place] [address] [place] Protein [Mass/Vol] 6.7 g/dL Normal 6.4-8.9 [facility] Comment on above: Performed By: #### C BC, CMP wRFX A1C #### [facility] [address] [place] [address] [place] Sodium [Moles/Vol] 140 mmol/L Normal 136-145 [facility] Comment on above: Performed By: #### C BC, CMP wRFX A1C #### [facility] [address] [place] [address] [place] Urea nitrogen [Mass/Vol] 18 mg/dL Normal 7-25 [facility] Comment on above: Performed By: #### C BC, CMP wRFX A1C #### [facility] [address] [place] [address] [place] Calcium [Mass/volume] in Ser um or PlasmaOrdered By: Shubham Rodrigues on 12-25-2022 Calcium [Mass/Vol] 9.1 mg/dL 8.6-10.3 [facility] Carbon dioxide, total [Moles /volume] in Serum or PlasmaOrdered By: Shubham Rodrigues on 12-25-2022 CO2 [Moles/Vol] 30.2 mmol/L 21.0-31.0 [facility] Chloride [Moles/volume] in S gerry or PlasmaOrdered By: Shubham Rodrigues on 12-25-2022 Chloride [Moles/Vol] 104 mmol/L 98-107 [facility] Complete Blood Count Auto Di ffon 12-25-2022 Basophils (Bld) [#/Vol] 0.1 10*3/uL Normal 0.0-0.2 [facility] Comment on above: Result Comment: PERF ORMED BY: [place] [address] PATHOLOGIST ANALYTICS INTERN MULUGETA ANGLIN M.D. Performed By: #### C BC, CMP wRFX A1C #### [facility] [address] [place] [address] [place] Basophils/100 WBC (Bld) 0.8 % Normal . [facility] Comment on above: Performed By: #### C BC, CMP wRFX A1C #### [facility] [address] [place] [address] [place] Eosinophils (Bld) [#/Vol] 0.2 10*3/uL Normal 0.0-0.45 [facility] Comment on above: Performed By: #### C BC, CMP wRFX A1C #### [facility] [address] [place] [address] [place] Eosinophils/100 WBC (Bld) 3.0 % Normal . [facility] Comment on above: Performed By: #### C BC, CMP wRFX A1C #### [facility] [address] [place] [address] [place] Erythrocyte distribution width (RBC) [Ratio] 14.4 % Normal 11.9-15.3 [facility] Comment on above: Performed By: #### C BC, CMP wRFX A1C #### [facility] [address] Hematocrit (Bld) [Volume fraction] 39.1 % Normal 34.0-46.4 [facility] Comment on above: Performed By: #### C BC, CMP wRFX A1C #### [facility] [address] Hemoglobin (Bld) [Mass/Vol] 13.0 g/dL Normal 11.8-15.4 [facility] Comment on above: Performed By: #### C BC, CMP wRFX A1C #### [facility] [address] Lymphocytes (Bld) [#/Vol] 1.5 10*3/uL Normal 1.00-4.8 [facility] Comment on above: Performed By: #### C BC, CMP wRFX A1C #### [address] Lymphocytes/100 WBC (Bld) 22.8 % Normal . [facility] Comment on above: Performed By: #### C BC, CMP wRFX A1C #### [address] MCH (RBC) [Entitic mass] 28.9 pg Normal 24.7-34.3 [facility] Comment on above: Performed By: #### C BC, CMP wRFX A1C #### [address] MCV (RBC) [Entitic vol] 86.9 fL Normal 80-100 [facility] Comment on above: Performed By: #### C BC, CMP wRFX A1C #### [facility] [address] [place] [address] Mean Corpuscular HGB Conc 33.2 g/dL Normal 32.0-35.0 [facility] Comment on above: Performed By: #### C BC, CMP wRFX A1C #### [facility] [address] [place] [address] [place] Monocytes (Bld) [#/Vol] 0.3 10*3/uL Normal 0.0-0.8 [facility] Comment on above: Performed By: #### C BC, CMP wRFX A1C #### [facility] [address] [place] [address] [place] Monocytes/100 WBC (Bld) 4.8 % Normal . [facility] Comment on above: Performed By: #### C BC, CMP wRFX A1C #### [facility] [address] Neutrophils (Bld) [#/Vol] 4.7 10*3/uL Normal 1.8-7.7 [facility] Comment on above: Performed By: #### C BC, CMP wRFX A1C #### [facility] [address] [place] [address] Neutrophils/100 WBC (Bld) 68.6 % Normal . [facility] Comment on above: Performed By: #### C BC, CMP wRFX A1C #### [facility] [address] [place] [address] NRBC% 0.1 /100{WBC} Normal 0-0.5 [facility] Comment on above: Performed By: #### C BC, CMP wRFX A1C #### [address] Platelet mean volume (Bld) [Entitic vol] 7.2 fL Normal 6.3-10.7 [facility] Comment on above: Performed By: #### C BC, CMP wRFX A1C #### [facility] [address] [place] [address] [place] Platelets (Bld) [#/Vol] 334 10*3/uL Normal 150-450 [facility] Comment on above: Performed By: #### C BC, CMP wRFX A1C #### [facility] [address] [place] [address] [place] RBC (Bld) [#/Vol] 4.50 10*6/uL Normal 3.60-5.00 [facility] Comment on above: Performed By: #### C BC, CMP wRFX A1C #### [address] [place] [address] [place] WBC (Bld) [#/Vol] 6.8 10*3/uL Normal 3.8-11.6 [facility] Comment on above: Performed By: #### C BC, CMP wRFX A1C #### [facility] [address] [place] [address] Creatinine [Mass/volume] in Serum or PlasmaOrdered By: Shubham Rodrigues on 12-25-2022 Creatinine [Mass/Vol] 0.69 mg/dL 0.60-1.20 [facility] ECG 12 lead ECGon 12-25-2022 ECG 12 lead ECG [facility] [address] [place] [address] Electrocardiograph Report Signed Patient: Karol Plascencia MR#: [id number] 160 : 1970 Acct:[id number] Age/Sex: 52 / F ADM Date: 12/25/22 Loc: Room: Type: [facility] Attending Dr: Shubham Rodrigues MD Ordering Provider: Shubham Rodrigues MD Date of Service: 12/25/22 ECG/ECG 12 lead ECG: Pre op Copies to: Test Reason : Blood Pressure : / mmHG Vent. Rate : 088 BPM Atrial Rate : 088 BPM P-R Int : 142 ms QRS Dur : 086 ms QT Int : 384 ms P-R-T Axes : 047 012 025 degrees QTc Int : 464 ms Normal sinus rhythm Normal ECG When compared with ECG of 29-NOV-2021 11:58, No significant change was found Confirmed by SAMIR BRYAN DO ([id number]) on 12/25/2022 11:34:46 AM Referred By: RAVI Electronically Signed By:SAMIR BRYAN DO Transcribed By: MUS Signed By Samir Bryan DO 12/25 1134 Normal [facility] Eosinophils Auto (Bld) [#/Vo l]Ordered By: Shubham Rodrigues on 12-25-2022 Eosinophils (Bld) [#/Vol] 0.2 10*3/uL 0.0-0.45 [facility] Eosinophils/100 WBC Auto (Bl d)Ordered By: Shubham Rodrigues on 12-25-2022 Eosinophils/100 WBC (Bld) 3.0 % . [facility] Erythrocyte distribution wid th Auto (RBC) [Ratio]Ordered By: Shubham Rodrigues on 12-25-2022 Erythrocyte distribution width (RBC) [Ratio] 14.4 % 11.9-15.3 [facility] Globulin Calc (S) [Mass/Vol] Ordered By: Shubham Rodrigues on 12-25-2022 Globulin (S) [Mass/Vol] 2.8 g/dL [facility] Glucose [Mass/volume] in Ser um or PlasmaOrdered By: Shubham Rodrigues on 12-25-2022 Glucose [Mass/Vol] 99 mg/dL 70-100 [facility] Hematocrit Auto (Bld) [Volum e fraction]Ordered By: Shubham Rodrigues on 12-25-2022 Hematocrit (Bld) [Volume fraction] 39.1 % 34.0-46.4 [facility] Hemoglobin [Mass/volume] in BloodOrdered By: Shubham Rodrigues on 12-25-2022 Hemoglobin (Bld) [Mass/Vol] 13.0 g/dL 11.8-15.4 [facility] Leukocytes [#/volume] correc darren for nucleated erythrocytes in Blood by Automated counOrdered By: Shubham Rodrigues on 12-25-2022 WBC corrected for nucl RBC Auto (Bld) [#/Vol] 6.8 10*3/uL 3.8-11.6 [facility] Lymphocytes Auto (Bld) [#/Vo l]Ordered By: Shubham Rodrigues on 12-25-2022 Lymphocytes (Bld) [#/Vol] 1.5 10*3/uL 1.00-4.8 [facility] Lymphocytes/100 WBC Auto (Bl d)Ordered By: Shubham Rodrigues on 12-25-2022 Lymphocytes/100 WBC (Bld) 22.8 % . [facility] MCH Auto (RBC) [Entitic mass ]Ordered By: Shubham Rodrigues on 12-25-2022 MCH (RBC) [Entitic mass] 28.9 pg 24.7-34.3 [facility] MCHC Auto (RBC) [Mass/Vol]Or dered By: Shubham Rodrigues on 12-25-2022 MCHC (RBC) [Mass/Vol] 33.2 g/dL 32.0-35.0 [facility] MCV Auto (RBC) [Entitic vol] Ordered By: Shubham Bullockxa on 12-25-2022 MCV (RBC) [Entitic vol] 86.9 fL 80-100 [facility] Monocytes Auto (Bld) [#/Vol] Ordered By: Shubham Bullockxa on 12-25-2022 Monocytes (Bld) [#/Vol] 0.3 10*3/uL 0.0-0.8 [facility] Monocytes/100 WBC Auto (Bld) Ordered By: Shubham Olexa on 12-25-2022 Monocytes/100 WBC (Bld) 4.8 % . [facility] Neutrophils Auto (Bld) [#/Vo l]Ordered By: Shubham Olexa on 12-25-2022 Neutrophils (Bld) [#/Vol] 4.7 10*3/uL 1.8-7.7 [facility] Neutrophils/100 WBC Auto (Bl d)Ordered By: Shubham Bullockxa on 12-25-2022 Neutrophils/100 WBC (Bld) 68.6 % . [facility] No Panel InformationOrdered By: Shubham Rodrigues on 12-25-2022 Estimated GFR (CKD-EPI) > 60.0 mL/Min [facility] Creatinine Clearance (Chem N/A [facility] Nucleated erythrocytes [Pres ence] in Blood by Automated countOrdered By: Shubham Rodrigues on 12-25-2022 Nucleated RBC Auto Ql (Bld) 0.1 /100{WBC} 0-0.5 [facility] Platelet mean volume Auto (B ld) [Entitic vol]Ordered By: Shubham Bullockxa on 12-25-2022 Platelet mean volume (Bld) [Entitic vol] 7.2 fL 6.3-10.7 [facility] Platelets Auto (Bld) [#/Vol] Ordered By: Shubham Bullockxa on 12-25-2022 Platelets (Bld) [#/Vol] 334 10*3/uL 150-450 [facility] Potassium [Moles/volume] in Serum or PlasmaOrdered By: Shubham Bullockxa on 12-25-2022 Potassium [Moles/Vol] 4.2 mmol/L 3.5-5.1 [facility] Protein [Mass/volume] in Ser um or PlasmaOrdered By: Shubham Rodrigues on 12-25-2022 Protein [Mass/Vol] 6.7 g/dL 6.4-8.9 [facility] RBC Auto (Bld) [#/Vol]Ordere d By: Shubham Rodrigues on 12-25-2022 RBC (Bld) [#/Vol] 4.50 10*6/uL 3.60-5.00 [facility] Serum or plasma albumin/glob ulin mass ratioOrdered By: Shubham Rodrigues on 12-25-2022 Albumin/Globulin [Mass ratio] 1.4 {ratio} [facility] Serum or plasma anion gap de terminationOrdered By: Shubham Rodrigues on 12-25-2022 Anion gap [Moles/Vol] 10.0 mmol/L 6.0-15.0 [facility] Sodium [Moles/volume] in Ser um or PlasmaOrdered By: Shubham Rodrigues on 12-25-2022 Sodium [Moles/Vol] 140 mmol/L 136-145 [facility] Urea nitrogen [Mass/volume] in Serum or PlasmaOrdered By: Shubham Rodrigues on 12-25-2022 Urea nitrogen [Mass/Vol] 18 mg/dL 7-25 [facility] WBC Auto (Bld) [#/Vol]Ordere d By: Shubham Rodrigues on 12-25-2022 WBC (Bld) [#/Vol] 6.8 10*3/uL 3.8-11.6 [facility] Lab Reportson 08-21-2022 Lab Reports [id number] 59#1.00CD:127 Normal [facility] Lab Reportson 08-14-2022 Lab Reports [id number] 16#1.00CD:127 Normal [facility] PTH INTACTon 08-13-2022 PTH, Intact 59 pg/mL Normal 15-65 [facility] Comment on above: Performed By: #### P THINT ####[facility] [address] [place] [address]Dr. Mikaela Caldwell BUNon 08-12-2022 Urea nitrogen [Mass/Vol] 12.0 mg/dL Normal 7.0-18.0 [facility] Comment on above: Performed By: #### C A, K, CL, BUN, URIC, CO2, CREA, NA ####[facility] [address] [place] [address]Dr. Mikaela Caldwell CALCIUMon 08-12-2022 Calcium [Mass/Vol] 9.0 mg/dL Normal 8.5-10.1 [facility] Comment on above: Performed By: #### C A, K, CL, BUN, URIC, CO2, CREA, NA ####[facility] [address] [place] [address]Dr. Mikaela Caldwell CHLORIDEon 08-12-2022 Chloride [Moles/Vol] 107 mmol/L Normal 98-107 [facility] Comment on above: Performed By: #### C A, K, CL, BUN, URIC, CO2, CREA, NA ####[facility] [address] [place] [address]Dr. Mikaela Caldwell CO2on 08-12-2022 CO2 [Moles/Vol] 29.7 mmol/L Normal 21.0-32.0 [facility] Comment on above: Performed By: #### C A, K, CL, BUN, URIC, CO2, CREA, NA ####[facility] [address] [place] [address]Dr. Mikaela Caldwell CREATININEon 08-12-2022 Creatinine [Mass/Vol] 0.85 mg/dL Normal 0.55-1.02 [facility] Comment on above: Performed By: #### C A, K, CL, BUN, URIC, CO2, CREA, NA ####[facility] [address] [place] [address]Dr. Mikaela Caldwell EGFR-AF [place]IZ[place] >60 Normal >=60 [facility] Comment on above: Performed By: #### C A, K, CL, BUN, URIC, CO2, CREA, NA ####[facility] [address] [place] [address]Dr. Mikaela Caldwell EGFR-NON AF [place]IZEN OF [place] >60 Normal >=60 [facility] Comment on above: Performed By: #### C A, K, CL, BUN, URIC, CO2, CREA, NA ####[facility] [address] [place] [address]Dr. Mikaela Caldwell NAon 08-12-2022 Sodium [Moles/Vol] 142 mmol/L Normal 136-145 [facility] Comment on above: Performed By: #### C A, K, CL, BUN, URIC, CO2, CREA, NA ####[facility] [address] [place] [address]Dr. Mikaela Caldwell POTASSIUMon 08-12-2022 Potassium [Moles/Vol] 3.9 mmol/L Normal 3.5-5.1 [facility] Comment on above: Performed By: #### C A, K, CL, BUN, URIC, CO2, CREA, NA ####[facility] [address] [place] [address]Dr. Mikaela Caldwell URIC ACID SERUMon 08-12-2022 Urate [Mass/Vol] 3.8 mg/dL Normal 2.6-6.0 [facility] Comment on above: Performed By: #### C A, K, CL, BUN, URIC, CO2, CREA, NA ####[facility] [address] [place] [address]Dr. Mikaela Caldwell Formson 07-24-2022 Forms [id number]#[id number]:127 Normal [facility] Patient Educationon 07-23-19 23 Patient Education Urology Kidney Stones Kidney stones are rock-like masses that form inside of the kidneys. Kidneys are organs that make pee (urine). A kidney stone may move into other parts of the urinary tract, including: ? The tubes that connect the kidneys to the bladder (ureters). ? The bladder. ? The tube that carries urine out of the body (urethra). Kidney stones can cause very bad pain and can block the flow of pee. The stone usually leaves your body (passes) through your pee. You may need to have a doctor take out the stone. What are the causes? Kidney stones may be caused by: ? A condition in which certain glands make too much parathyroid hormone (primary hyperparathyroidism ). ? A buildup of a type of crystals in the bladder made of a chemical called uric acid. The body makes uric acid when you eat certain foods. ? Narrowing (stricture) of one or both of the ureters. ? A kidney blockage that you were born with. ? Past surgery on the kidney or the ureters, such as gastric bypass surgery. What increases the risk? You are more likely to develop this condition if: ? You have had a kidney stone in the past. ? You have a family history of kidney stones. ? You do not drink enough water. ? You eat a diet that is high in protein, salt (sodium), or sugar. ? You are overweight or very overweight (obese). What are the signs or symptoms? Symptoms of a kidney stone may include: ? Pain in the side of the belly, right below the ribs (flank pain). Pain usually spreads (radiates) to the groin. ? Needing to pee often or right away (urgently). ? Pain when going pee (urinating). ? Blood in your pee (hematuria). ? Feeling like you may vomit (nauseous). ? Vomiting. ? Fever and chills. How is this treated? Treatment depends on the size, location, and makeup of the kidney stones. The stones will often pass out of the body through peeing. You may need to: ? Drink more fluid to help pass the stone. In some cases, you may be given fluids through an IV tube put into one of your veins at the hospital. ? Take medicine for pain. ? Make changes in your diet to help keep kidney stones from coming back. Sometimes, medical procedures are needed to remove a kidney stone. This may involve: ? A procedure to break up kidney stones using a beam of light (laser) or shock waves. ? Surgery to remove the kidney stones. Follow these instructions at home: Medicines ? Take jvyt-ugv-efzsijt and prescription medicines only as told by your doctor. ? Ask your doctor if the medicine prescribed to you requires you to avoid driving or using heavy machinery. Eating and drinking ? Drink enough fluid to keep your pee pale yellow. You may be told to drink at least 8?10 glasses of water each day. This will help you pass the stone. ? If told by your doctor, change your diet. This may include: ? Limiting how much salt you eat. ? Eating more fruits and vegetables. ? Limiting how much meat, poultry, fish, and eggs you eat. ? Follow instructions from your doctor about eating or drinking restrictions. General instructions ? Collect pee samples as told by your doctor. You may need to collect a pee sample: ? 24 hours after a stone comes out. ? 8?12 weeks after a stone comes out, and every 6?12 months after that. ? Strain your pee every time you pee (urinate), for as long as told. Use the strainer that your doctor recommends. ? Do not throw out the stone. Keep it so that it can be tested by your doctor. ? Keep all follow-up visits as told by your doctor. This is important. You may need follow-up tests. How is this prevented? To prevent another kidney stone: ? Drink enough fluid to keep your pee pale yellow. This is the best way to prevent kidney stones. ? Eat healthy foods. ? Avoid certain foods as told by your doctor. You may be told to eat less protein. ? Stay at a healthy weight. Where to find more information ? National Kidney Foundation (NKF): www.kidney.org ? [employer] (UCF): www.urologyhealth.o rg Contact a doctor if: ? You have pain that gets worse or does not get better with medicine. Get help right away if: ? You have a fever or chills. ? You get very bad pain. ? You get new pain in your belly (abdomen). ? You pass out (faint). ? You cannot pee. Summary ? Kidney stones are rock-like masses that form inside of the kidneys. ? Kidney stones can cause very bad pain and can block the flow of pee. ? The stones will often pass out of the body through peeing. ? Drink enough fluid to keep your pee pale yellow. This information is not intended to replace advice given to you by your health care provider. Make sure you discuss any questions you have with your health care provider. Document Released: 09/30/2008 Document Revised: 08/31/2019 Document Reviewed: 08/31/2019 [employer] Patient Education ? 2019 [employer] [facility] RAD - MISCon 07-22-2022 [facility] [phone] [id number]:127 [facility] Urology Office/Clinic Noteon 07-22-2022 Urology Office/Clinic Note Chief Complaint Pt is here for 6 mos f/u to kidney stone HPI Staff Pt is here for 6 mos f/u to ureteral stone. She is s/p to Cysto/scopy/laser/b asket/L stent removal done on 12/21/21. KUB done 07/18/22. Dysuria: No Incomplete bladder emptying: No Hematuria: No Frequency: No Urgency: no Nocturia: gets up maybe 1 time at night Stream: Good Leaking: No History of Present Illness I have reviewed and verified the staff HPI to be accurate for this encounter. Review of Systems ROS - Provider Constitutional: denies weight loss, denies hot flashes. Eyes: denies eye problems. Gastrointestinal: denies nausea, denies vomiting. Cardiovascular: denies chest pain or angina. Integumentary: no dryness Musculoskeletal: denies musculoskeletal symptoms. ENMT: denies otolaryngeal symptoms. Respiratory: no shortness of breath. Heme/Lymph: denies easy bleeding tendency, denies easy bruising tendency. Psychiatric: no confusion, no anxiety. Genitourinary: denies vaginal discharge, denies incontinence, denies dysuria, denies hematuria, denies urinary frequency, denies amenorrhea, denies menorrhagia, denies abnormal bleeding, denies pelvic pain, denies genital sores, and denies decreased libido. Physical Exam Vitals & Measurements HR: 72(Peripheral) RR: 16 BP: 129/81 HT: 65 in HT: 164 cm WT: 108 kg WT: 237.6 lb BMI: 40.15 General Appearance: alert , no acute distress, well nourished, well developed female. Genitourinary: bladder nonpalpable, no flank pain. Assessment/Plan 1. Kidney stone (N20.0: Calculus of kidney) Cysto/scopy/laser/b asket/L stent removal done on 12/21/21. KUB done 07/18/2022 showed Bilateral nephrolithiasis 2mm in both kidneys. Pt denies passing any stones recently. Discussed with pt that based off her most recent KUB we will monitor these stones. Discussed doing a metabolic work-up to see why she makes stones. Pt agrees with this plan. Overall the patient is doing well. She is passed no kidney stone since last visit but the KUB does demonstrate continued small urolithiasis. She agrees with recommendation for a metabolic work-up and will get this completed. Tentative plan is for a 6-month follow-up with KUB and we may have to have follow-up depending on findings of the metabolic work-up. Follow-up With When Contact Information KEZIA ARREGUIN, Eros Mckeon, URL In 6 months 01/22/[address] [place] [id number] Additional Instructions: KUB Patient Education Kidney Stones, [id number] ICharisam , personally scribed for Dr. Mast on 07/22/2022 10:23:17. . Documentation recorded by the scribe, Charisma Husain MA, accurately reflects the services(s) I performed and decisions made by me. Authenticated by Dr. Mast on 07/22/2022 10:28:45. Problem List/Past Medical History Ongoing Cervical adenopathy History of kidney stones Kidney stone Right ear pain Sinus congestion Thyroid nodule Ureteral stone Historical No qualifying data Procedure/Surgical History ESWL - Extracorporeal shockwave lithotripsy for renal calculus (12/21/2021), Cystoscopic insertion of ureteric stent (11/29/2021), Cystoscope (11/13/2021), Colonoscopy (08/26/2018), D&C - Dilatation and curettage, Diagnostic endoscopy. Medications Phylicia, Oral Claritin-D, 1 tab(s), Oral, q12hr diclofenac sodium, 75 mg, Oral, BID dicyclomine 20 mg Tab, 20 mg= 1 tab(s) levothyroxine 50 mcg (0.05 mg) Tab, 50 mcg= 1 tab(s), Oral, Daily Protonix 40 mg Tab-DR, 40 mg= 1 tab(s), Oral, Daily sucralfate tab, 1 gm= 1 tab(s) Allergies No Known Medication Allergies Social History Alcohol - Denies Alcohol Use, 01/19/2019 Substance Abuse - Denies Substance Abuse, 01/19/2019 Tobacco Never (less than 100 in lifetime) Tobacco Use:. Never Smokeless Tobacco Use:., 07/22/2022 Family History Hypertension: Mother. Primary malignant neoplasm of bone: Father. Thyroid goiter: Mother. Immunizations Vaccine Date Status SARS-CoV-2 (COVID-19) mRNA-1273 vaccine 09/29/2021 Recorded SARS-CoV-2 (COVID-19) mRNA-1273 vaccine 08/12/2020 Recorded SARS-CoV-2 (COVID-19) mRNA-1273 vaccine 07/17/2020 Recorded Lab Results Ambulatory Point of Care Results Bilirubin Urine Dipstick: Negative (07/22/22 09:47:00) Blood Urine Dipstick: Trace-intact (07/22/22 09:47:00) Glucose Urine Dipstick: Negative (07/22/22 09:47:00) Ketones Urine Dipstick: Negative (07/22/22 09:47:00) Leukocytes Urine Dipstick: Trace (07/22/22 09:47:00) Nitrite Urine Dipstick: Negative (07/22/22 09:47:00) Protein Urine Dipstick: Negative (07/22/22 09:47:00) Specific Herminie Urine Dipstick: <=1.005 (07/22/22 09:47:00) Urine Appearance Urine Dipstick: Clear (07/22/22 09:47:00) Urine Color Urine Dipstick: Light yellow (07/22/22 09:47:00) Urobilinogen Urine Dipstick: Normal 0.2-1 EU/dl (07/22/22 09:47:00) pH Urine Dipstick: 5.5 (07/22/22 09:47:00) Diagnostic (more content not included)... [facility] Comment on above: Result Comment: Elec tronically Signed By: KEZIA ARREGUIN, Eros Mckeon\.br\Date and Time Signed: 07/22/22 10:29 EDT\.br\Electronically Co-Signed By: Charisma Husain MA\.br\Date and Time Co-Signed: 07/22/22 10:23 EDT XR KUB 1 VIEWon 07-18-2022 XR KUB 1 VIEW EXAMINATION: XR KUB 1 VIEW HISTORY: Kidney stone COMPARISON: No relevant comparison available. FINDINGS: KIDNEY/URETER - RIGHT: 2 small calcifications project over superior pole. KIDNEY/URETER - LEFT: 2 small calcifications projecting over inferior pole. PELVIS: No visible ureteral stones. Stable pelvic calcifications compatible with phleboliths. Left ureteral stent has been removed. BOWEL: No abnormal dilation or deviation. BONES: No acute abnormality. OTHER: Negative. No abnormal gaseous collections. IMPRESSION: 1. Bilateral nephrolithiasis. Electronically authenticated by: TUCKER ENGLISH Date: 2022-07-18 09:03 [facility] Provider Letteron 05-31-2022 Provider Letter May 31, 2022 KAROL PLASCENCIA [address] [facility] [place] [address] KAROL PLASCENCIA 1970 Dear Karol, We have been trying to reach you with no success. You have an appointment with Dr. Mast on June 21, 2022 which will need to be rescheduled since he will be out of the office that day. Please contact the office at the number listed below to get this appointment rescheduled at your earliest convenience. Thank you for your prompt attention to this matter. Please call [phone] Sincerely, [facility] [address] [place] [address] x 1 [facility] US THYROIDon 05-15-2022 US THYROID EXAMINATION: US THYROID HISTORY: Non-toxic uninodular goiter COMPARISON: 06/06/2021 TECHNIQUE: Sonographic images of the thyroid gland were obtained. FINDINGS: The right thyroid lobe is stable in size, contour and echotexture measuring 4.6 x 1.0 x 1.1 cm. Single nodule over 5 mm. Nodule 1:0.5 0.6 x 0.4 cm. Solid, hyperechoic, wide, smooth margins, no calcifications. TR 3 Thyroid isthmus measures 1.8 mm, homogeneous, no focal nodule The left thyroid lobe is stable in size, contour and echotexture measuring 3.3 x 1.2 x 1.1 cm. Single nodule over 5 mm Nodule 1:1.4 x 0.7 x 0.6 cm. Solid, hypoechoic, wide, smooth margins, no calcifications. TR 4 IMPRESSION: Bilateral stable thyroid nodules TI-RADS: The [employer] TI-RADS committee's white paper recommendations for thyroid lesions classified as TR4 (moderately suspicious) are listed below: > 1.0 cm. Follow-up ultrasound in 1, 2, 3, and 5 years. > 1.5 cm. FNA. J. Am Ellen Radiol 2017;14:587-595. Electronically authenticated by: KODY GARRISON Date: 2022-05-15 11:41 Normal [facility] MAMM SCREEN 3D ANN-MARIE CADon 03-27-2022 MG MAMM SCREEN 3D ANN-MARIE CAD Patient: KAROL PLASCENCIA Exam Date: 03/27/2022 : 1970 Gender:F Ordering : DR SUE WIN . Admission #: [id number] Family : Order #: [id number] CLICK HERE TO VIEW EXAM RADIOLOGY REPORT PROCEDURE: MAMMOGRAM SCREENING 3D BILATERAL CAD COMPARISON: MG MAMM SCREEN 3D ANN-MARIE CAD, 03/21/2021. MG MAMM SCREEN ANN-MARIE W CAD, 03/20/2020. INDICATIONS: Screening mammography Calculator Name NCI Breast Cancer Risk Assessment Tool 5 Year Breast Cancer Risk 1.80% Lifetime Breast Cancer Risk 13.80% Personal Breast Cancer No Personal Ovarian Cancer No Treatments None Family Cancers Father with bone AND prostate cancer at age 69. LOCATION: [facility] [place] BREAST COMPOSITION: Heterogeneously dense,which may obscure small masses. FINDINGS: DIAGNOSTIC CATEGORY 2--BENIGN FINDING: RIGHT BREAST: No significant suspicious finding. Scattered benign-appearing calcifications are present. Scattered benign-appearing lymph nodes are present. No significant change has occurred. LEFT BREAST: No significant suspicious finding. Scattered benign-appearing lymph nodes are present. No significant change has occurred. RECOMMENDATIONS: ROUTINE MAMMOGRAM AND CLINICAL EVALUATION IN 12 MONTHS. PLEASE NOTE: A NORMAL MAMMOGRAM DOES NOT EXCLUDE THE POSSIBILITY OF BREAST CANCER. A CLINICALLY SUSPICIOUS PALPABLE LUMP SHOULD BE BIOPSIED. Dictated by: Tucker English M.D. on 03/27/2022 at 15:30 Approved by: Tucker English M.D. on 03/27/2022 at 15:33 [facility] Cytologyon 03-14-2022 Cytology (NOTE) INTERPRETATION Cervical material, (ThinPrep vial, Imaging-assisted review): Specimen Adequacy: Satisfactory for evaluation. - Endocervical/transf ormation zone component present. Descriptive Diagnosis: Negative for intraepithelial lesion or malignancy. Comments: Specimen was screened at [facility] [address] Stripper Preliminary: NIKOLE Haddad(ASCP) Electronically Signed Out yumiko/03/28/2022 Source: A: Cervical material, (ThinPrep vial, Imaging-assisted review) Clinical History Postmenopausal Z01.419 Routine hot kettle tender exam without abnormal findings High risk HPV DNA testing is requested if the diagnosis is abnormal LMP: 01/23/2016 GYNECOLOGIC CYTOLOGY REPORT Patient Name: KAROL PLASCENCIA [facility] Rec: [id number] Path Number: [id number] [facility] ANATOMIC PATHOLOGY [address] [place] [id number] Normal [facility] Comment on above: Performed By: #### P PPVP #### [address] [address] Medicare Biller: Ajay Harvey MD Ammonium urate crystals dete ction in stone by infrared spectroscopyOrdered By: Eros Mast on 12-21-2021 Ammonium urate crystals Infrared spectroscopy Ql (Stone) N/A [facility] Calcium bilirubinate measure mentOrdered By: Eros Mast on 12-21-2021 Calcium bilirubinate (Stone) [Mass fraction] N/A [facility] Calcium carbonate measuremen tOrdered By: Eros Mast on 12-21-2021 Calcium carbonate (Stone) [Mass fraction] N/A [facility] Calcium hydrogen phosphate d ihydrate/Total in StoneOrdered By: Eros Mast on 12-21-2021 Calcium hydrogen phosphate dihydrate (Stone) [Mass fraction] N/A [facility] Calcium oxalate dihydrate cr ystals detection in stone by infrared spectroscopyOrdered By: Eros Mast on 12-21-2021 Calcium oxalate dihydrate crystals Infrared spectroscopy Ql (Stone) 20 % . [facility] Calcium oxalate monohydrate/ Total in StoneOrdered By: Eros Mast on 12-21-2021 Calcium oxalate monohydrate (Stone) [Mass fraction] 80 % . [facility] Calcium phosphate measuremen tOrdered By: Erso Mast on 12-21-2021 Calcium phosphate (Stone) [Mass fraction] N/A [facility] Calculus analysis interpreta tion in stoneOrdered By: Eros Mast on 12-21-2021 Calculus analysis [Interp] N/A [facility] Calculus analysis [Interp] See comment . [facility] Comment on above: Calculus received in liquid. Wet calculi must be dried before analysis, which delays reporting of results. Leaving calculi in liquid (such as water, saline, blood, urine) may lead to changes in composition. Physician questions regarding Calculi Analysis contact [employer] at: [phone]. Calculi report will follow via computer, mail or exceptional needs teacher delivery. Calculus analysis with calcu guera photography interpretation in stoneOrdered By: Eros Mast on 12-21-2021 Calculus analysis with calculus photography [Interp] See comment . [facility] Comment on above: Photograph will foll ow under a separate cover Cellular material measuremen t in stone by estimated (mass/mass)Ordered By: Eros Mast on 12-21-2021 Cellular material Est (Stone) [Mass/Mass] N/A [facility] Cholesterol/Total in StoneOr dered By: Eros Mast on 12-21-2021 Cholesterol (Stone) [Mass fraction] N/A [facility] Composition of stoneOrdered By: Eros Mast on 12-21-2021 Composition Nom (Stone) See comment . [facility] Comment on above: Percentage (Represen ts the % composition) Cystine measurementOrdered B y: Eros Mast on 12-21-2021 Cystine (Unsp spec) [Moles/Vol] N/A [facility] Determination of color of ca lculusOrdered By: Eros Mast on 12-21-2021 Color (Stone) Brown . [facility] Hydroxyapatite [Energy Diffe rence] in 24 hour UrineOrdered By: Eros Mast on 12-21-2021 Hydroxyapatite (24H U) [Energy diff] N/A [facility] Measurement of proportion of calculus composed of dried blood (mass/mass)Ordered By: Eros Mast on 12-21-2021 Blood.dried (Stone) [Mass fraction] N/A [facility] Newberyite/Total in StoneOrd ered By: Eros Mast on 12-21-2021 Newberyite (Stone) [Mass fraction] N/A [facility] No Panel InformationOrdered By: Eros Mast on 12-21-2021 Stone 2,8 Dihydroxyadenine N/A [facility] Stone Analysis Disclaimer See comment . [facility] Comment on above: This test was develo ped and its performance characteristics determined by [employer]. It has not been cleared or approved by the Food and Drug Administration. Performed at: [facility] Stone Analysis [address] [place] [address] [place] [id number] Medicare Biller: Jayson Santos PhD, Phone: [phone] Stone Bilirubinate N/A [facility] Stone Calcium Palmitate N/A [facility] Stone Calcium Stearate N/A [facility] Stone Carbonate Apatite N/A [facility] Stone Drug or Metabolite N/A [facility] Stone Other Constituent N/A [facility] Stone Xanthine N/A [facility] Size [Entitic volume] of Sto neOrdered By: Eros Mast on 12-21-2021 Size (Stone) [Entitic vol] 5x3 mm . [facility] Comment on above: Multiple pieces rece ived. Dimensions of the largest piece reported. Sodium urate crystals detect ion in stone by infrared spectroscopyOrdered By: Eros Mast on 12-21-2021 Sodium urate crystals Infrared spectroscopy Ql (Stone) N/A [facility] Specimen source subject [Typ e]Ordered By: Eros Mast on 12-21-2021 Specimen source subject Nom See comment . [facility] Comment on above: Left Ureter Triamterene measurement in c alculusOrdered By: Eros Mast on 12-21-2021 Triamterene (Stone) [Mass fraction] N/A [facility] Triple phosphate/Total in St oneOrdered By: Eros Mast on 12-21-2021 Triple phosphate (Stone) [Mass fraction] N/A [facility] Uric acid dihydrate crystals detection in stone by infrared spectroscopyOrdered By: Eros Mast on 12-21-2021 Urate dihydrate crystals Infrared spectroscopy Ql (Stone) N/A [facility] COVID-19 Positive/NegativeOr dered By: Eros Mast on 12-19-2021 SARS-CoV-2 (COVID-19) N gene ISABELLA+probe Ql (Resp) Negative Negative [facility] Comment on above: Testing for SARS-CoV -2 by RT-PCR This test was developed and its performance characteristics determined by [employer] and validated at the [facility]. This test has not been FDA cleared or approved. This test has been authorized by FDA under an Emergency Use Authorization (EUA). This test has been validated in accordance with the FDA's Guidance Document (Policy for Diagnostics Testing in Laboratories Certified to Perform High Complexity Testing under CLIA prior to Emergency Use Authorization for Coronavirus Disease-2019 during the Public Health Emergency) issued on July 29, 2019. This test is only authorized for the duration of time the declaration that circumstances exist justifying the authorization of the emergency use of in vitro diagnostic tests for detection of SARS-CoV-2 virus and/or diagnosis of COVID-19 infection under section 564(b)(1) of the Act, 21 U.S.C. 360bbb-3(b)(1), unless the authorization is terminated or revoked sooner. Activated partial thrombopla stin time (aPTT) in platelet poor plasma by coagulation aOrdered By: Eros Mast on 12-13-2021 aPTT Coag (PPP) [Time] 40.1 s 25.1-36.5 [facility] Basophils Auto (Bld) [#/Vol] Ordered By: Eros Mast on 12-13-2021 Basophils (Bld) [#/Vol] 0.1 10*3/uL 0.0-0.2 [facility] Basophils/100 WBC Auto (Bld) Ordered By: Eros Mast on 12-13-2021 Basophils/100 WBC (Bld) 0.8 % . [facility] Blood hemoglobin measurement (mass/volume)Ordered By: Eros Mast on 12-13-2021 Hemoglobin (Bld) [Mass/Vol] 12.8 g/dL 11.8-15.4 [facility] Blood leukocytes automated c ount (number/volume)Ordered By: Eros Mast on 12-13-2021 WBC (Bld) [#/Vol] 6.9 10*3/uL 4.5-11.0 [facility] Creatinine and Glomerular fi ltration rate.predicted panel (S/P/Bld)Ordered By: Eros Mast on 12-13-2021 Creatinine [Mass/Vol] 0.76 mg/dL 0.44-1.03 [facility] Eosinophils Auto (Bld) [#/Vo l]Ordered By: Eros Mast on 12-13-2021 Eosinophils (Bld) [#/Vol] 0.3 10*3/uL 0.0-0.45 [facility] Eosinophils/100 WBC Auto (Bl d)Ordered By: Eros Mast on 12-13-2021 Eosinophils/100 WBC (Bld) 4.9 % . [facility] Erythrocyte distribution wid th Auto (RBC) [Ratio]Ordered By: Eros Mast on 12-13-2021 Erythrocyte distribution width (RBC) [Ratio] 14.0 % 11.9-15.3 [facility] Estimated glomerular filtrat ion rate (GFR) non- AmericanOrdered By: Eors Mast on 12-13-2021 GFR/1.73 sq M.predicted among non-blacks MDRD (S/P/Bld) [Vol rate/Area] > 60 mL/Min [facility] Hematocrit Auto (Bld) [Volum e fraction]Ordered By: Eros Mast on 12-13-2021 Hematocrit (Bld) [Volume fraction] 39.2 % 34.0-46.4 [facility] Laboratory - CoagulationOrde red By: Eros Mast on 12-13-2021 PT Coag (PPP) [Time] 11.9 s 9.0-12.9 [facility] - Hematology and Cell countsOrdered By: Eros Mast on 12-13-2021 Nucleated RBC/100 WBC (Bld) [Ratio] 0.1 % 0-0.5 [facility] Lymphocytes Auto (Bld) [#/Vo l]Ordered By: Eros Mast on 12-13-2021 Lymphocytes (Bld) [#/Vol] 2.0 10*3/uL 1.00-4.8 [facility] Lymphocytes/100 WBC Auto (Bl d)Ordered By: Eros Mast on 12-13-2021 Lymphocytes/100 WBC (Bld) 28.9 % . [facility] MCH Auto (RBC) [Entitic mass ]Ordered By: Eros Mast on 12-13-2021 MCH (RBC) [Entitic mass] 28.8 pg 24.7-34.3 [facility] MCHC Auto (RBC) [Mass/Vol]Or dered By: Eros Mast on 12-13-2021 MCHC (RBC) [Mass/Vol] 32.6 g/dL 32.0-35.0 [facility] MCV Auto (RBC) [Entitic vol] Ordered By: Eros Mast on 12-13-2021 MCV (RBC) [Entitic vol] 88.1 fL 80-100 [facility] Monocytes Auto (Bld) [#/Vol] Ordered By: Eros Mast on 12-13-2021 Monocytes (Bld) [#/Vol] 0.4 10*3/uL 0.0-0.8 [facility] Monocytes/100 WBC Auto (Bld) Ordered By: Eros Mast on 12-13-2021 Monocytes/100 WBC (Bld) 6.5 % . [facility] Neutrophils Auto (Bld) [#/Vo l]Ordered By: Eros Mast on 12-13-2021 Neutrophils (Bld) [#/Vol] 4.1 10*3/uL 1.8-7.7 [facility] Neutrophils/100 WBC Auto (Bl d)Ordered By: Eros Mast on 12-13-2021 Neutrophils/100 WBC (Bld) 58.9 % . [facility] No Panel InformationOrdered By: Eros Mast on 12-13-2021 Estimated GFR () > 60 mL/Min [facility] Comment on above: GFR estimated refere nce range: According to KDOQI guidelines, <60 ml/min/1.73m2 is sufficient to diagnose a patient with chronic kidney disease. Pharmacy Creatinine Clearance (Chem N/A [facility] Platelet mean volume Auto (B ld) [Entitic vol]Ordered By: Eros Mast on 12-13-2021 Platelet mean volume (Bld) [Entitic vol] 7.5 fL 6.3-10.7 [facility] Platelet poor plasma interna tional normalized ratio (INR) by coagulation assay (relatOrdered By: Eros Mast on 12-13-2021 INR Coag (PPP) [Relative time] 1.1 {INR} [facility] Comment on above: INR Therapeutic Rang e A) Pre- and Peroperative OAT started two weeks before surgery. NOT HIP SURGERY: 1.5 - 2.5 HIP SURGERY: 2 - 3 B) Primary and secondary prevention of venous THROMBOSIS: 2 - 3 C) Active venous thrombosis, pulmonary embolism and prevention of recurrent venous thrombosis: 2 - 3 D) Prevention of arterial thromboembolism including patients with mechanical heart valves: 3 - 4.5 Platelets Auto (Bld) [#/Vol] Ordered By: Eros Mast on 12-13-2021 Platelets (Bld) [#/Vol] 345 10*3/uL 150-450 [facility] RBC Auto (Bld) [#/Vol]Ordere d By: rEos Mast on 12-13-2021 RBC (Bld) [#/Vol] 4.45 10*6/uL 3.60-5.00 [facility] Serum or plasma calcium cielo urement (mass/volume)Ordered By: Eros Mast on 12-13-2021 Calcium [Mass/Vol] 9.2 mg/dL 8.2-10.2 [facility] Serum or plasma chloride ankita surement (moles/volume)Ordered By: Eros Mast on 12-13-2021 Chloride [Moles/Vol] 102 mmol/L 95-114 [facility] Serum or plasma glucose cielo urement (mass/volume)Ordered By: Eros Mast on 12-13-2021 Glucose [Mass/Vol] 90 mg/dL 70-100 [facility] Comment on above: ADA recommended refe rence range Random Glucose Reference Range is dependent on time and content of last meal. Glucose of more than 200 mg/dL in a nonstressed, ambulatory subject supports the diagnosis of Diabetes Mellitus. Serum or plasma potassium me asurement (moles/volume)Ordered By: Eros Mast on 12-13-2021 Potassium [Moles/Vol] 3.6 mmol/L 3.5-5.1 [facility] Serum or plasma sodium measu rement (moles/volume)Ordered By: Eros Mast on 12-13-2021 Sodium [Moles/Vol] 139 mmol/L 136-146 [facility] Serum or plasma total carbon dioxide measurement (moles/volume)Ordered By: Eros Mast on 12-13-2021 CO2 [Moles/Vol] 27.4 mmol/L 22.0-30.0 [facility] Serum or plasma urea nitroge n measurement (mass/volume)Ordered By: Eros Mast on 12-13-2021 Urea nitrogen [Mass/Vol] 13 mg/dL 9- [facility] MRI KNEE RT WO CONon 022 MRI KNEE RT WO CON EXAMINATION: MRI KNEE RT WO CON HISTORY: Derangement of right knee ; acute medial right knee pain after tripping COMPARISON: No relevant comparison available. TECHNIQUE: A complete multi-planar MRI was performed. FINDINGS: MEDIAL COMPARTMENT MEDIAL MENISCUS: Small radial tear at anterior junction prominent T2 signal within anterior horn/junction with poorly defined margins; maceration versus complex tear. Anterior horn is extruded from the joint space. CARTILAGE: Moderate thinning without focal defect. BONES: Trace amount of marrow edema within medial aspect of the medial tibial plateau, with slightly more focal area near the anterior margin likely representing osteochondral defect. Periarticular osteophytes. Small bone cyst within distal femur metaphysis. MCL AND MEDIAL CAPSULE: Grade II sprain of the medial collateral ligament. LATERAL COMPARTMENT LATERAL MENISCUS: No visible tear or significant degeneration. CARTILAGE: Mild thinning without focal defect. BONES: No marrow pathology, fracture, or significant arthropathy. LCL/POSTEROLAT COMPLEX: Normal lateral collateral ligament, fascicles, lateral capsule and ligaments. ANTERIOR COMPARTMENT PATELLA: Subchondral edema at the apex and lateral facet. CARTILAGE: Focal defects at the apex and lateral facet. TENDONS: Normal. EFFUSION: None. No synovitis or loose bodies. ACL: Normal appearing ligament. PCL: Normal appearing ligament. MENISCOFEMORAL: Normal meniscofemoral ligaments. OTHER: Negative. IMPRESSION: 1. Complex tears and small radial tear involving the anterior junction of medial meniscus and extrusion of the anterior horn from the joint space. 2. Minimal bone bruising of the medial tibial plateau and suspected small osteochondral defect. 3. Sprain medial collateral ligament. 4. Grade IV chondromalacia of the patella. Electronically authenticated by: TUCKER ENGLISH Date: 2021-12-12 17:04 Normal [facility] XR KUB 1 VIEWon 12-10-2021 XR KUB 1 VIEW EXAMINATION: XR KUB 1 VIEW HISTORY: Kidney stone COMPARISON: XR KUB 11/20/2021 FINDINGS: KIDNEY/URETER - RIGHT: No visible renal or ureteral calcifications. KIDNEY/URETER - LEFT: Several stones within left kidney, largest is 5 mm. Suspect 4 mm stone within proximal ureter/ureteral pelvic junction. Stable left ureteral stent. PELVIS: No visible ureteral calcifications. Any visible calcifications favor phleboliths. BOWEL: No abnormal dilation or deviation. BONES: No acute abnormality. OTHER: Negative. No abnormal gaseous collections. IMPRESSION: 1. Stable left ureteral stent. 2. Left nephrolithiasis and suspected proximal ureteral stone. Electronically authenticated by: TUCKER ENGLISH Date: 2021-12-10 07:56 Normal [facility] COVID-19 SOFIAOrdered By: Jeison Mast on 11-27-2021 SARS-CoV+SARS-CoV-2 (COVID-19) Ag IA.rapid Ql (Resp) Negative Negative [facility] Comment on above: This is a duplicate Mony SARS Antigen (MILES) result to be used for statistical tracking purpose only. No Panel InformationOrdered By: Eros Mast on 11-27-2021 SARS Antigen (LFIA) [facility] XR KUB 1 VIEWon 11-20-2021 XR KUB 1 VIEW EXAMINATION: XR KUB 1 VIEW HISTORY: Kidney stone COMPARISON: CT abdomen pelvis 11/13/2021 FINDINGS: KIDNEY/URETER - RIGHT: No visible renal or ureteral calcifications, although a 5 mm stone was seen within lower pole of right kidney on the CT study. KIDNEY/URETER - LEFT: 6 mm stone and adjacent smaller stone within inferior pole of left kidney. Ureteral stent. PELVIS: No visible ureteral stones. BOWEL: No abnormal dilation or deviation. BONES: No acute abnormality. OTHER: Negative. No abnormal gaseous collections. IMPRESSION: 1. Left ureteral stent appearing in good position. 2. Left nephrolithiasis. The previously seen proximal ureteral stone has been pushed back into the lower pole of the kidney. 3. No visible right kidney stones, although a stone was seen on the recent CT study, possibly obscured by bowel content. Electronically authenticated by: TUCKER ENGLISH Date: 2021-11-20 18:35 Normal [facility] CULTURE URINEon 11-15-2021 CULTURE URINE Isolate 1 Escherichia coli 75,000 cfu/mL of ORGANISM 1 Escherichia coli ANTIBIOTIC M.I.C RX STATUS Ampicillin 4 S F Ampicillin/Sulbacta m <=2 S F Piperacillin/Tazoba ctam <=4 S F Cefazolin <=4 S F Ceftazidime <=1 S F Ceftriaxone <=1 S F Ertapenem <=0.5 S F Imipenem <=0.25 S F Amikacin <=2 S F Gentamicin <=1 S F Tobramycin <=1 S F Ciprofloxacin <=0.25 S F Levofloxacin <=0.12 S F Nitrofurantoin <=16 S F Trimethoprim/Sulfam ethoxazole <=20 S F Normal [facility] Comment on above: Performed By: #### C VDTBH #### [facility] [address] [place] [address] Dr. Mikaela Caldwell CARDIAC EDGARDO 3-6on 2 CK [Catalytic activity/Vol] 54 U/L Normal 26-192 [facility] Comment on above: Performed By: #### C VDTBH #### [facility] [address] [place] [address] Dr. Mikaela Caldwell CK.MB [Mass/Vol] 2.05 ng/mL Normal <=3.60 [facility] Comment on above: Performed By: #### C VDTBH #### [facility] [address] [place] [address] Dr. Mikaela Caldwell HSTROP 6.5 pg/mL Normal 4.0-51.3 [facility] Comment on above: Result Comment: CUT- OFF POINTS HAVE BEEN ESTABLISHED BASED ON THE FOURTH UNIVERSAL DEFINITIONS OF MYOCARDIAL INFARCTION. THE UPPER REFERENCE LIMIT (URL) OF TROPONIN, DEFINED THE 99TH PERCENTILE OF cTnI DISTRIBUTION IN A REFERENCE POPULATION, HAS BEEN CONFIRMED THE DECISION THRESHOLD FOR NE DIAGNOSIS. Performed By: #### C VDTBH #### [facility] [address] [address] [address] Mikaela Caldwell CK [Catalytic activity/Vol] 63 U/L Normal 26-192 [facility] Comment on above: Performed By: #### C MREP #### [facility] [address] [address] [address] Mikaela Caldwell CK.MB [Mass/Vol] 2.28 ng/mL Normal <=3.60 [facility] Comment on above: Performed By: #### C MREP #### [facility] [address] [place] [address] Dr. Mikaela Caldwell HSTROP 5.1 pg/mL Normal 4.0-51.3 [facility] Comment on above: Result Comment: CUT- OFF POINTS HAVE BEEN ESTABLISHED BASED ON THE FOURTH UNIVERSAL DEFINITIONS OF MYOCARDIAL INFARCTION. THE UPPER REFERENCE LIMIT (URL) OF TROPONIN, DEFINED THE 99TH PERCENTILE OF cTnI DISTRIBUTION IN A REFERENCE POPULATION, HAS BEEN CONFIRMED THE DECISION THRESHOLD FOR NE DIAGNOSIS. Performed By: #### C MREP #### [facility] [address] [place] [address] Dr. Mikaela Caldwell CARDIAC EDGARDO ADMITon 022 CK [Catalytic activity/Vol] 77 U/L Normal 26-192 [facility] Comment on above: Performed By: #### C MADM, LIPA, CMP #### [facility] [address] [address] [address] Mikaela Caldwell CK.MB [Mass/Vol] 2.40 ng/mL Normal <=3.60 [facility] Comment on above: Performed By: #### C MADM, LIPA, CMP #### [facility] [address] [place] [address] Dr. Mikaela Caldwell HSTROP 5.8 pg/mL Normal 4.0-51.3 [facility] Comment on above: Result Comment: CUT- OFF POINTS HAVE BEEN ESTABLISHED BASED ON THE FOURTH UNIVERSAL DEFINITIONS OF MYOCARDIAL INFARCTION. THE UPPER REFERENCE LIMIT (URL) OF TROPONIN, DEFINED THE 99TH PERCENTILE OF cTnI DISTRIBUTION IN A REFERENCE POPULATION, HAS BEEN CONFIRMED THE DECISION THRESHOLD FOR NE DIAGNOSIS. Performed By: #### C RONEN MA, CMP #### [facility] [address] [place] [address] Dr. Mikaela Caldwell JOYCE 29 ng/mL Normal 9-82 [facility] Comment on above: Performed By: #### C RONEN MA, CMP #### [facility] [address] [place] [address] Dr. Mikaela Caldwell CBC AUTO DIFFon 11-13-2021 BASO # 0.1 103/ul Normal 0.0-0.1 [facility] Comment on above: Performed By: #### C BC #### [facility] [address] [place] [address] Dr. Mikaela Caldwell Basophils/100 WBC (Bld) 0.5 % Normal 0.2-2.0 [facility] Comment on above: Performed By: #### C BC #### [facility] [address] [place] [address] Dr. Mikaela Caldwell EO # 0.3 103/ul Normal 0.0-0.7 [facility] Comment on above: Performed By: #### C BC #### [facility] [address] [place] [address] Dr. Mikaela Caldwell Eosinophils/100 WBC (Bld) 2.1 % Normal 0.9-7.0 [facility] Comment on above: Performed By: #### C BC #### [facility] [address] [place] [address] Dr. Mikaela Caldwell Erythrocyte distribution width (RBC) [Ratio] 13.2 % Normal 11.0-15.0 [facility] Comment on above: Performed By: #### C BC #### [facility] [address] [place] [address] Dr. Mikaela Caldwell Hematocrit (Bld) [Volume fraction] 40.9 % Normal 36.0-48.0 [facility] Comment on above: Performed By: #### C BC #### [facility] [address] [address] [address] Mikaela Caldwell Hemoglobin (Bld) [Mass/Vol] 13.1 g/dL Normal 12.0-16.0 [facility] Comment on above: Performed By: #### C BC #### [facility] [address] [address] [address] Mikaela Caldwell IG # 0.07 10e3/ul Critically high 0.00-0.03 [facility] Comment on above: Performed By: #### C BC #### [facility] [address] [address] [address] Mikaela Caldwell IG % 0.5 % Normal 0.0-0.5 [facility] Comment on above: Performed By: #### C BC #### [facility] [address] [address] [address] Mikaela Caldwell LYMPH # 1.8 103/ul Normal 1.2-3.8 [facility] Comment on above: Performed By: #### C BC #### [facility] [address] [place] [address] Dr. Mikaela Caldwell Lymphocytes/100 WBC (Bld) 12.5 % Critically low 20.5-60.0 [facility] Comment on above: Performed By: #### C BC #### [facility] [address] [place] [address] Dr. Mikaela Caldwell MANUAL DIFF REQ NO Normal [facility] Comment on above: Performed By: #### C BC #### [facility] [address] [address] [address] Mikaela Caldwell MCH (RBC) [Entitic mass] 29.2 pg Normal 26.7-34.0 [facility] Comment on above: Performed By: #### C BC #### [facility] [address] [address] [address] Mikaela Caldwell MCHC (RBC) [Mass/Vol] 32.0 g/dL Normal 29.9-35.2 [facility] Comment on above: Performed By: #### C BC #### [facility] [address] [address] [address] Mikaela Caldwell MCV (RBC) [Entitic vol] 91.1 fL Normal 81.0-99.0 [facility] Comment on above: Performed By: #### C BC #### [facility] [address] [address] [address] Mikaela Caldwell MONO # 0.7 103/ul Normal 0.3-0.8 [facility] Comment on above: Performed By: #### C BC #### [facility] [address] [place] [address] Dr. Mikaela Caldwell Monocytes/100 WBC (Bld) 5.1 % Normal 1.7-12.0 [facility] Comment on above: Performed By: #### C BC #### [facility] [address] [place] [address] Dr. Mikaela Caldwell NEUT # 11.1 103/ul Critically high 1.4-6.5 [facility] Comment on above: Performed By: #### C BC #### [facility] [address] [place] [address] Dr. Mikaela Caldwell Neutrophils/100 WBC (Bld) 79.3 % Critically high 43.0-75.0 [facility] Comment on above: Performed By: #### C BC #### [facility] [address] [place] [address] Dr. Mikaela Caldwell Platelet mean volume (Bld) [Entitic vol] 9.2 fL Critically low 9.5-13.5 [facility] Comment on above: Performed By: #### C BC #### [facility] [address] [place] [address] Dr. Mikaela Caldwell PLT 420 103/ul Normal 150-450 [facility] Comment on above: Performed By: #### C BC #### [facility] [address] [place] [address] Dr. Mikaela Caldwell RBC 4.49 106/ul Normal 4.20-5.40 [facility] Comment on above: Performed By: #### C BC #### [facility] [address], [place] [address] Dr. Mikaela Caldwell WBC 14.0 103/ul Critically high 4.0-11.0 [facility] Comment on above: Performed By: #### C #### [facility] [address], [place] [address] ABD/PELVIS WO CONon 11-13 CT ABD/PELVIS WO CON EXAM: CT ABD/PELVIS WO CON 11/13/2021 1:52 AM EDT OH001 CLINICAL STATEMENT: CALCULUS OF KIDNEY COMPARISON: No prior studies are available at the time of dictation. TECHNIQUE: Helically acquired images were obtained of the abdomen and pelvis without IV contrast. No oral contrast was administered. AEC is utilized. 2-D reconstructed images are provided. FINDINGS: There is a 9 mm left proximal ureteric calculus with mild left-sided hydronephrosis and hydroureter. Bilateral nonobstructive renal calculi measuring up to 6 mm on the right and 3 mm on the left. The gallbladder is unremarkable. The remaining upper abdominal solid organs are unremarkable. There is no bowel obstruction or free air. Multiple tiny subcentimeter mesenteric lymph nodes. There is no ascites. There is no evidence of aortic aneurysm. There is no retroperitoneal adenopathy. There is no appendicitis or diverticulitis. There are no pelvic masses or loculated fluid collections. Uterus and bladder are unremarkable. The lung bases are clear. There are no destructive bone lesions identified. IMPRESSION: 9 mm left proximal ureteric calculus with mild left-sided hydronephrosis and hydroureter. Bilateral nonobstructive renal calculi measuring up to 6 mm on the right and 3 mm on the left. FOLLOW-UP: Follow-up as clinically indicated. Electronically authenticated by: GEORGE SAID Date: 2021-11-13 02:57 Normal [facility] Covid-19 PCR (CVDTB)on 10-26 SARS-CoV-2 (COVID-19) RNA ISABELLA+probe Ql (Unsp spec) Not detected Normal NOT DETECTED [facility] Comment on above: Result Comment: When diagnostic testing is negative, the possibility of a false negative should be considered in the context of a patient's recent exposures and the presence of clinical signs and symptoms consistent with SARS-CoV-2. This test is not yet approved or cleared by the [place] FDA. When there are no FDA-approved or cleared tests available, and other criteria are met, FDA can make tests available under an emergency access mechanism called an Emergency Use Authorization (EUA). The EUA for this test is supported by the Night Auditor of Health and Human Service's declaration that circumstances exist to justify the emergency use of in vitro diagnostics for the detection and/or diagnosis of the virus that causes COVID-19. This EUA will remain in effect for the duration of the COVID-19 declaration justifying emergency of IVDs, unless it is terminated or revoked by the FDA (after which the test may no longer be used). Performed By: #### C VDTB #### [facility] [address] [place] [address] Dr. Mikaela Caldwell ER URINE PROFILEon 2 Bilirubin Ql (U) Negative Normal NEGATIVE [facility] Comment on above: Performed By: #### Jimy ROSAS UMICRO #### [facility] [address] [place] [address] Dr. Mikaela Caldwell Clarity (U) CLEAR Normal CLEAR [facility] Comment on above: Performed By: #### Jimy ROSAS UMICRO #### [facility] [address] [place] [address] Dr. Mikaela Caldwell Color (U) LT. YELLOW Normal YELLOW [facility] Comment on above: Performed By: #### Jimy ROSAS UMICRO #### [facility] [address] [place] [address] Dr. Mikaela Caldwell ERUAHD A micrscopic examination will be performed if indicated. Normal [facility] Comment on above: Performed By: #### E ALECR UMICRO #### [facility] [address] [place] [address] Dr. Mikaela Caldwell Glucose Ql (U) Negative Normal NEGATIVE [facility] Comment on above: Performed By: #### E ALECR UMICRO #### [facility] [address] [place] [address] Dr. Mikaela Caldwell Hemoglobin Ql (U) TRACE-INTACT Abnormal NEGATIVE [facility] Comment on above: Performed By: #### Jimy ROSAS UMICRO #### [facility] [address] [place] [address] Dr. Mikaela Caldwell Ketones Ql (U) Negative Normal NEGATIVE [facility] Comment on above: Performed By: #### Jimy ROSAS UMICRO #### [facility] [address] [place] [address] Dr. Mikaela Caldwell LEUKOCYTES TRACE Abnormal NEGATIVE [facility] Comment on above: Performed By: #### Jimy ROSAS UMICRO #### [facility] [address] [place] [address] Dr. Mikaela Caldwell Nitrite Ql (U) Positive Abnormal NEGATIVE [facility] Comment on above: Performed By: #### Jimy ROSAS UMICRO #### [facility] [address] [place] [address] Dr. Mikaela Caldwell pH (U) 6.5 [pH] Normal 5-9 [facility] Comment on above: Performed By: #### Jimy ROSAS UMICRO #### [facility] [address] [place] [address] Dr. Mikaela Caldwell SPEC GRAVITY 1.020 Normal 1.005-<=1.025 [facility] Comment on above: Performed By: #### Jimy ROSAS UMICRO #### [facility] [address] [place] [address] Dr. Mikaela Caldwell UA PROTEIN Negative Normal NEGATIVE/ TRACE [facility] Comment on above: Performed By: #### ANDRZEJ ROGERSICRO #### [facility] [address] [place] [address] Dr. Mikaela Caldwell UR MICRO IND INDICATED Normal [facility] Comment on above: Performed By: #### ANDRZEJ ROGERSICRO #### [facility] [address] [place] [address] Dr. Mikaela Caldwell Urobilinogen Qn (U) 0.2 {Lisa'U}/dL Normal 0.2 - 1. 0 [facility] Comment on above: Performed By: #### Jimy ROSAS UMICRO #### [facility] [address] [address] [address] Mikaela Caldwell LACTATE/LACTIC ACIDon 2021 Lactate [Moles/Vol] 1.2 mmol/L Normal 0.4-1.9 [facility] Comment on above: Performed By: #### L ACT ####[facility] [id number] [address]Dr. Mikaela Caldwell LIPASEon 11-13-2021 Lipase [Catalytic activity/Vol] 97.0 U/L Normal 73.0-393.0 [facility] Comment on above: Performed By: #### C MADM, LIPA, CMP #### [facility] [address] [address] [address] Mikaela Caldwell PROF 14(COMP METB)on 022 Albumin [Mass/Vol] 3.5 g/dL Normal 3.4-5.0 [facility] Comment on above: Performed By: #### C MADM, LIPA, CMP #### [facility] [address] [address] [address] Mikaela Caldwell Albumin/Globulin [Mass ratio] 0.9 {ratio} Normal [facility] Comment on above: Performed By: #### C MADM, LIPA, CMP #### [facility] [address] [address] [address] Mikaela Caldwell ALP [Catalytic activity/Vol] 161 U/L Critically high 46-116 [facility] Comment on above: Performed By: #### C MADM, LIPA, CMP #### [facility] [address] [address] [address] Mikaela Caldwell ALT [Catalytic activity/Vol] 30 U/L Normal 14-59 [facility] Comment on above: Performed By: #### C MADM, LIPA, CMP #### [facility] [address] [address] [address] Mikaela Caldwell Anion gap [Moles/Vol] 10.4 mmol/L Normal [facility] Comment on above: Performed By: #### C MADM, LIPA, CMP #### [facility] [address] [address] [address] Mikaela Caldwell AST [Catalytic activity/Vol] 17 U/L Normal 15-37 [facility] Comment on above: Performed By: #### C MADM, LIPA, CMP #### [facility] [address] [address] [address] Mikaela Caldwell Bilirubin [Mass/Vol] 0.3 mg/dL Normal 0.2-1.0 [facility] Comment on above: Performed By: #### C MADM, LIPA, CMP #### [facility] [address] [address] [address] Mikaela Caldwell Calcium [Mass/Vol] 8.8 mg/dL Normal 8.5-10.1 [facility] Comment on above: Performed By: #### C MADM, LIPA, CMP #### [facility] [address] [place] [address] Dr. Mikaela Caldwell Chloride [Moles/Vol] 106 mmol/L Normal 98-107 [facility] Comment on above: Performed By: #### C MADM, LIPA, CMP #### [facility] [address] [address] [address] Mikaela Caldwell CO2 [Moles/Vol] 30.1 mmol/L Normal 21.0-32.0 [facility] Comment on above: Performed By: #### C MADM, LIPA, CMP #### [facility] [address] [address] [address] Mikaela Caldwell Creatinine [Mass/Vol] 1.02 mg/dL Normal 0.55-1.02 [facility] Comment on above: Performed By: #### C MADM, LIPA, CMP #### [facility] [address] [address] [address] Mikaela Caldwell EGFR-AF CITIZEN OF [place] >60 Normal >=60 [facility] Comment on above: Performed By: #### C MADM, LIPA, CMP #### [facility] [address] [address] [address] Mikaela Caldwell EGFR-NON AF CITIZEN OF [place] 57 mL/min/1.73m2 Critically low >=60 [facility] Comment on above: Performed By: #### C MADM, LIPA, CMP #### [facility] [address] [address] [address] Mikaela Caldwell Globulin (S) [Mass/Vol] 4.0 g/dL Normal [facility] Comment on above: Performed By: #### C MADM, LIPA, CMP #### [facility] [address] [address] [address] Mikaela Caldwell Glucose [Mass/Vol] 113 mg/dL Critically high 74-106 [facility] Comment on above: Performed By: #### C MADM, LIPA, CMP #### [facility] [address] [place] [address] Dr. Mikaela Caldwell Potassium [Moles/Vol] 3.5 mmol/L Normal 3.5-5.1 [facility] Comment on above: Performed By: #### C MADM LIPA, CMP #### [facility] [address] [address] [address] Mikaela Caldwell Protein [Mass/Vol] 7.5 g/dL Normal 6.4-8.2 [facility] Comment on above: Performed By: #### C MADMarii LIPA, CMP #### [facility] [address] [place] [address] Dr. Mikaela Caldwell Sodium [Moles/Vol] 143 mmol/L Normal 136-145 [facility] Comment on above: Performed By: #### C MADM, LIPA, CMP #### [facility] [address] [place] [address] Dr. Mikaela Caldwell Urea nitrogen [Mass/Vol] 18.0 mg/dL Normal 7.0-18.0 [facility] Comment on above: Performed By: #### C MADM, LIPA, CMP #### [facility] [address] [place] [address] Dr. Mikaela Caldwell Urea nitrogen/Creatinine [Mass ratio] 17.6 mg/mg Normal [facility] Comment on above: Performed By: #### C MADM, LIPA, CMP #### [facility] [address] [place] [address] Dr. Mikaela Caldwell URINE MICROSCOPIC ONLYon BACTERIA TRACE Abnormal NONE SEEN [facility] Comment on above: Performed By: #### KENDELL ROGERSRO #### [facility] [address] [place] [address] Dr. Mikaela Caldwell Bacteria identified Cx Nom (U) INDICATED Normal [facility] Comment on above: Performed By: #### Jimy ROSAS UMICRO #### [facility] [address] [place] [address] Dr. Mikaela Caldwell CAST NONE SEEN Normal NONE SEEN [facility] Comment on above: Performed By: #### KENDELL ROGERSRO #### [facility] [address] [place] [address] Dr. Mikaela Caldwell Crystals LM Nom (Urine sed) NONE SEEN Normal NONE SEEN [facility] Comment on above: Performed By: #### KENDELL ROGERSRO #### [facility] [address] [place] [address] Dr. Mikaela Caldwell Epithelial cells LM Ql (Urine sed) NONE SEEN Normal NONE SEEN /RARE [facility] Comment on above: Performed By: #### ANDRZEJ ROGERSICRO #### [facility] [address] [place] [address] Dr. Mikaela Caldwell MUCOUS NONE SEEN Normal NONE SEEN [facility] Comment on above: Performed By: #### KENDELL ROGERSRO #### [facility] [address] [place] [address] Dr. Mikaela Caldwell RBC 0-2 Normal 0-2 [facility] Comment on above: Performed By: #### ANDRZEJ ROGERSICRO #### [facility] [address] [place] [address] Dr. Mikaela Caldwell WBC 5-10 Abnormal NONE SEEN [facility] Comment on above: Performed By: #### ANDRZEJ ROGERSICRO #### [facility] [address] [place] [address] Dr. Mikaela Caldwell XR CHEST 2 Von 11-13-2021 XR CHEST 2 V EXAM: XR CHEST 2 V 11/13/2021 1:52 AM EDT OH001 CLINICAL STATEMENT: Pain COMPARISON: 02/08/2020 TECHNIQUE: PA and lateral radiograph of the chest are submitted. FINDINGS: There is no acute airspace disease. The cardiac silhouette is normal. The costophrenic recesses are sharp. No pneumothorax. The bony elements are unremarkable. IMPRESSION: No acute cardiopulmonary process. Electronically authenticated by: GEORGE LLANES Date: 2021-11-13 02:46 Normal [facility] Vital Signs Date Time Vital Sign Value Performing Clinician Facility 12-19-2022 09:45-0400 Body height 165.1 cm Shubham Bullockkarri Other [facility] Other 12-19-2022 09:45-0400 Body mass index (BMI) [Ratio] 39.27 kg/m2 Shubham Bullockkarri Other [facility] Other 12-19-2022 09:45-0400 Body weight 107.05 kg Shubham Ravi Other [facility] Other 07-22-2022 09:50-0400 Blood Pressure Location [employer] [facility] 07-22-2022 09:50-0400 Diastolic blood pressure 81 mm[Hg] Eros MAST [facility] 07-22-2022 09:50-0400 Heart rate 72 /min [employer] [employer] [facility] 07-22-2022 09:50-0400 Respiratory rate 16 /min [employer] [employer] [facility] 07-22-2022 09:50-0400 Systolic blood pressure 129 mm[Hg] Eros MAST [facility] 12-21-2021 17:00-0400 Diastolic blood pressure 82 mm[Hg] MD Eros Mast Work Phone: [facility] 12-21-2021 17:00-0400 Heart rate 79 /min MD Eros Mast Work Phone: [facility] 12-21-2021 17:00-0400 Respiratory rate 16 /min MD Eros Mast Work Phone: [facility] 12-21-2021 17:00-0400 SaO2% (BldA) [Mass fraction] 100 % MD Eros Mast Work Phone: [facility] 12-21-2021 17:00-0400 Systolic blood pressure 118 mm[Hg] MD Eros Mast Work Phone: [facility] 12-21-2021 15:35-0400 Body weight 118 mg MD Eros Mast Work Phone: [facility] 12-21-2021 14:57-0400 Body height 165.1 cm MD Eros Mast Work Phone: [facility] 12-21-2021 14:57-0400 Body mass index (BMI) [Ratio] 38.5 kg/m2 MD Eros Mast Work Phone: [facility] 12-21-2021 14:57-0400 Body weight 105 kg MD Eros Mast Work Phone: [facility] 12-21-2021 12:56-0400 Body temperature 98.4 [degF] MD Eros Mast Work Phone: [facility] 11-29-2021 14:51-0400 Diastolic blood pressure 84 mm[Hg] MD Eros Mast Work Phone: [facility] 11-29-2021 14:51-0400 Heart rate 80 /min MD Eros Mast Work Phone: [facility] 11-29-2021 14:51-0400 Respiratory rate 16 /min MD Eros Mast Work Phone: [facility] 11-29-2021 14:51-0400 SaO2% (BldA) [Mass fraction] 98 % MD Eros Mast Work Phone: [facility] 11-29-2021 14:51-0400 Systolic blood pressure 117 mm[Hg] MD Eros Mast Work Phone: [facility] 11-29-2021 12:45-0400 Body height 165.1 cm MD Eros Mast Work Phone: [facility] 11-29-2021 12:45-0400 Body mass index (BMI) [Ratio] 37.4 kg/m2 MD Eros Mast Work Phone: [facility] 11-29-2021 12:45-0400 Body weight 102.05 kg MD Eros Mast Work Phone: [facility] 11-29-2021 12:24-0400 Body temperature 97.9 [degF] MD Eros Mast Work Phone: [facility] Encounters Encounter Date Encounter Type Care Provider Facility Start: 02-02-2024 ambulatory Eros MAST Facility :[facility] Start: 02-10-2023 End: 02-10-2023 ambulatory Shubham Olexa Other [employer] Other Start: 02-10-2023 Postop follow up vis it related to original px Shubham Olexa [facility] Start: 02-10-2023 Telephone encounter Shubham Olexa [facility] Start: 01-27-2023 End: 01-28-2023 ambulatory Eros MAST Facility:[facility] Start: 01-07-2023 End: 01-07-2023 ambulatory Shubham Olexa Other [facility] Other Start: 01-07-2023 Postop follow up vis it related to original px Shubham Olexa [facility] Start: 01-01-2023 End: 01-01-2023 ambulatory Sue Win Facility:[facility] Start: 12-31-2022 End: 12-31-2022 ambulatory Shubham Olexa Other [facility] Other Start: 12-31-2022 Telephone encounter Shubham Olexa [facility] Start: 12-25-2022 End: 12-25-2022 ambulatory Sue Win Facility:[facility] Start: 12-25-2022 End: 12-25-2022 ambulatory MD Sue Win Work Phone: [facility] Work Phone: Start: 12-25-2022 End: 12-25-2022 Patient encounter procedure MD Sue Win Work Phone: [facility] Work Phone: Start: 12-19-2022 End: 12-19-2022 ambulatory Shubham Olexa Other [employer] Other Start: 12-19-2022 Office outpatient vi sit 25 minutes Shubham Olexa [facility] Start: 11-25-2022 End: 11-25-2022 ambulatory Shubham Olexa Other [employer] Other Start: 11-25-2022 Office outpatient ne w 45 minutes Shubham Olexa [facility] Start: 08-12-2022 End: 08-13-[address] EROS MAST Facility:[facility] Start: 07-22-2022 End: 07-23-2022 ambulatory Eros MAST Facility: [facility] Start: 07-22-2022 End: 07-22-2022 Patient encounter procedure Eros MAST [facility] Start: 07-18-2022 End: 07-19-[address] EROS MAST Facility:[facility] Start: 05-15-2022 End: 05-16-[address] HARVEY BURCH Facility:[facility] Start: 03-27-2022 End: 03-28-[address] SUE WIN . Facility:[facility] Start: 03-14-2022 End: 03-15-2022 ambulatory [facility] Start: 03-14-2022 Encounter for gynecological examination (general) (routine) without abnormal findings [facility] Start: 12-21-2021 End: 12-21-2021 Admission to same day surgery center [facility] Start: 12-19-2021 End: 12-19-2021 Patient encounter procedure MD Eros Mast Work Phone: [facility] Start: 12-13-2021 End: 12-13-2021 Patient encounter procedure MD Eros Mast Work Phone: [facility] Start: 12-12-2021 End: 12-13-[address] SUE WIN . Facility:[facility] Start: 12-10-2021 End: 12-11-[address] EROS MAST Facility:[facility] Start: 11-29-2021 End: 11-29-2021 Admission to same day surgery center MD [facility]ros [facility]ast [facility] Start: 11-27-2021 End: 11-27-2021 Patient encounter procedure MD Eros Mast Work Phone: [facility] Start: 11-21-2021 End: 11-21-2021 Patient encounter procedure Eros MAST [facility] Start: 11-20-2021 End: 11-21-[address] EROS MAST Facility:[facility] Start: 11-13-2021 End: 11-13-[address] SUE WIN . Facility:[facility] Start: 10-03-2021 End: 10-04-[address] SUE WIN . Facility:[facility] Start: 03-05-2021 End: 03-05-2021 Patient encounter procedure Sue Win MD Work Phone: [facility] Start: 03-05-2021 End: 03-05-2021 Subsequent hospital visit by physician Sue Win MD Work Phone: [facility] Comment on above: Vaginal discharge; Women's annual routine gynecological examination Start: 02-25-2019 End: 02-25-2019 Subsequent [facility] Comment on above: Women's annual routi ne gynecological examination Procedures Date Procedure Procedure Detail Performing Clinician Start: 12-21-2021 Cystoscopy MD Eros Mast Work Phone: Start: 12-21-2021 Diagnostic radiograp hy of abdomen MD Eros Mast Work Phone: Start: 12-21-2021 Diagnostic radiograp hy of abdomen MD Eros Mast Work Phone: Start: 12-21-2021 Extracorporeal shock wave lithotripsy of calculus of kidney Eros MAST Start: 11-29-2021 Extracorporeal shock wave lithotripsy of calculus of kidney MD Eros Mast Work Phone: Start: 11-29-2021 Diagnostic radiograp hy of abdomen MD Eros Mast Work Phone: Start: 11-29-2021 Cystoscopic insertio n of ureteric stent Eros MAST Start: 11-13-2021 Cystoscope, device (physical object) Eros MAST Start: 02-25-2019 Microscopic observat ion [Identifier] in Cervix by Cyto stain Sue Win MD Work Phone: Start: 08-26-2018 Colonoscopy Eros ISSA Diagnostic endoscopy Eros MAST Dilation and curetta ge of uterus Eros MAST SARS Antigen (LFIA) MD Alejandro Mast Work Phone: Plan of Treatment Date Care Activity Detail Author Start: 03-20-2022 Screening for malign ant neoplasm of breast Breast cancer screen [facility] Start: 03-13-2022 End: 03-13-2022 Patient encounter procedure 03/13/2022 Office Visit Obstetrics and Gynecology Berhane Yang MD [address] [place] [address] [address] [place] [address] [facility] Start: 02-25-2022 Screening for malign ant neoplasm of cervix [facility] Start: 12-21-2021 End: 12-21-2021 [facility] Work Phone: Start: 12-21-2021 Cystoscopy OR Cysto/Retro/Stent/Stone /Holmium Laser (Left) [facility] Start: 12-21-2021 Diagnostic radiograp hy of abdomen XR [facility] Start: 12-21-2021 End: 12-21-2021 Admission to same day surgery center Departed Surgical Day Care [facility] Start: 12-21-2021 Diagnostic radiograp hy of abdomen XR [facility] Start: 12-19-2021 End: 12-19-2021 Patient encounter procedure Departed Clinical [facility] Start: 12-13-2021 End: 12-13-2021 Patient encounter procedure Departed Clinical [facility] Start: 11-29-2021 [facility] Work Phone: Start: 11-29-2021 [facility] Work Phone: Start: 02-23-2021 Cervical cancer screen Cervical canc er screen [place], [place] Start: 02-11-2021 COVID-19 Vaccine (3 - Pfizer booster) COVID-19 Vaccine (3 - Pfizer booster) [facility] Start: 02-28-2020 Breast cancer screen Breast cancer s creen [place], [place] Start: 03-27-2019 Influenza vaccination Flu vaccine (# 1) [place], [place] Comment on above: Postponed from 12/27 (Not Indicated) Start: 03-25-2019 Diabetes screen Diabetes screen [place], [place] Comment on above: Postponed from 07/08 (Not Indicated) Start: 03-25-2019 DTaP/Tdap/Td vaccine (1 - Tdap) DTaP/Tdap/Td vaccine (1 - Tdap) [place], [place] Comment on above: Postponed from 07/08 (Patient Refused) Start: 03-25-2019 HIV screen HIV screen [place], [place] Comment on above: Postponed from 07/08 (Patient Refused) Start: 03-25-2019 Lipid screen Lipid screen [place], [place] Comment on above: Postponed from 07/08 (Not Indicated) Start: 2018 Colon cancer screen colonoscopy Colon cancer screen colonoscopy [place], [place] Start: 2018 Shingles Vaccine (1 of 2) Shingles Vaccine (1 of 2) [facility] Start: 2013 Screening for malign ant neoplasm of colon Colon cancer screen colonoscopy [facility] Start: 2008 Diabetes screen Diabetes screen [facility] Start: 2008 Lipid panel Lipid screen [facility] Start: 1998 Screening for malign ant neoplasm of cervix HPV (without or with Pap) [facility] Start: 07-09-1987 DTaP/Tdap/Td vaccine (1 - Tdap) DTaP/Tdap/Td vaccine (1 - Tdap) [facility] Start: 07-09-1983 HIV screening HIV screen [facility] Start: 1968 [facility] End: 03-05-2021 Culture, Genital [facility] Work Phone: Comment on above: 1 Occurrences starti ng 03/05/2021 until 03/05/2021 End: 02-25-2019 Cytopathology procedure, preparation of smear, genital source [facility] Routine Women's Annual Routine Gynecological Examination 1 Occurrences starting 02/25/2019 until 02/25/2019 [place], [place] Comment on above: 1 Occurrences starti ng 02/25/2019 until 02/25/2019 End: 03-05-2021 Cytopathology procedure, preparation of smear, genital source PAP [facility] Lab Routine Women's annual routine gynecological examination 1 Occurrences starting 03/05/2021 until 03/05/2021 [facility] Work Phone: Comment on above: 1 Occurrences starti ng 03/05/2021 until 03/05/2021 Patient Education Cystoscopy (DC) [facility] Work Phone: Patient referral [facility] Work Phone: Immunizations Immunization Date Immunization Notes Care Provider Fa cility 09-29-2021 COVID-19 mRNA-1273 (Moderna) MD Eros Mast Work Phone: [facility] 02-08-2021 Influenza, injectabl e, Madin Mary Canine Kidney, preservative free, quadrivalent Sue Win MD Work Phone: [facility] Work Phone: 08-12-2020 COVID-19 mRNA-1273 (Moderna) MD Eros Mast Work Phone: [facility] 08-12-2020 COVID-19, Pfizer, PF , 30mcg/0.3mL Sue Win MD Work Phone: [facility] 07-17-2020 SARS-CoV-2 (COVID-19 ) mRNA-1273 vaccine Eros MAST [facility] 07-15-2020 COVID-19 mRNA-1273 (Moderna) MD Eros Mast Work Phone: [facility] 07-15-2020 COVID-19, Pfizer, PF , 30mcg/0.3mL Sue Win MD Work Phone: [facility] Work Phone: 05-03-2020 Influenza, injectabl e, Madin Mary Canine Kidney, preservative free, quadrivalent Sue Win MD Work Phone: [facility] Work Phone: 02-08-2020 pneumococcal conjuga te vaccine, 13 caitlin Win MD Work Phone: [facility] Work Phone: Payers Date Payer Category Payer Self-pay 2019 Unknown [employer] [address] xxxxxxxx 2019-Present [phone] [address] [place] [address] xxxxxxxx [id number] 1968 Unknown [id number] 1968 Unknown [id number] 1968 Unknown [id number] [id number] 1968 Unknown [id number] 1968 Unknown [id number] [id number] 1968 Unknown [id number] [id number] 1968 Unknown [id number] [id number] 1968 Unknown [id number] [id number] 1968 Unknown [id number] [id number] 1968 Unknown [id number] [id number] 1968 Unknown [id number] [id number] 1968 Unknown [id number] [id number] 1968 Unknown [id number] [id number] 1959 Unknown [id number] Unknown [id number] Unknown [id number] Social History Date Type Detail Facility Start: 02-25-2019 End: 12-25-2022 Tobacco smoking status NHIS [facility] [place] Start: 02-25-2019 Alcohol intake Yes [employer] [place], [place] Start: 1970 Sex Assigned At Not on file M [place], [place] Start: 07-30-2012 Tobacco use and exposure Smokeless tobacco non-user [employer] Phone: Start: 03-05-2021 Alcohol intake Current drinke r of alcohol (finding) [employer] Phone: Tobacco smoking status Never [facility] Start: 1970 Sex Assigned At Female F [facility] Goals Date Patient Goal Desired Activity /State Functional Status Date Assessment Result Facility 07-22-2022 Functional Status N/A [facility] 11-21-2021 Functional Status N/A [facility] Clinical Notes 10-03-2021 to 02-10-2023 Note Date & Type Note Facility 02-10-2023 Evaluation note Encounter Date Diagnosis Assessment Notes Jan, Primary osteoarthritis of left knee (ICD-10 - M17.12) Jan, Acute medial meniscus tear of left knee, initial encounter (ICD-10 - S83.242A) Physical exam was preformed today. Patient advised to keep up with exercise and Tylenol/Motri n for pain. Down the road if patient is having issues, we can consider injections for the knee. Patient can f/u PRN. Jan, Other specified postprocedural states (ICD-10 - Z98.890) [facility] Other 09-12-2023 Evaluation note* Encounter Date Diagnosis Assessment Notes Treatment Notes Treatment Clinical Notes Dec, Primary osteoarthritis of right knee (ICD-10 - M17.11) Dec, Acute medial meniscus tear of left knee, initial encounter (ICD-10 - S83.242A) Patient instructed on gentle motion exercise as well as quadriceps and hamstring strengthening exericse. Discussed use of ice and heat for pain relief as well as elevation of the leg to prevent swelling. Continue PT as needed. Patient may shower and allow steri strips to fall off. Dec, Primary osteoarthritis of left knee (ICD-10 - M17.12) Dec, Pain in right knee (ICD-10 - M25.561) Dec, Other tear of medial meniscus, current injury, right knee, subsequent encounter (ICD-10 - S83.241D) Dec, Other specified postprocedural states (ICD-10 - Z98.890) [facility] Other 09-05-2023 Evaluation note* Encounter Date Diagnosis Assessment Notes Treatment Notes Treatment Clinical Notes Dec, Other specified postprocedural states (ICD-10 - Z98.890) [facility] Other 08-24-2023 Evaluation note* Encounter Date Diagnosis Assessment Notes Treatment Notes Treatment Clinical Notes Nov, Primary osteoarthritis of right knee (ICD-10 - M17.11) Nov, Acute medial meniscus tear of left knee, initial encounter (ICD-10 - S83.242A) MRI results were reviewed with patient in detail. We will plan on arthroscopy and menisectemy. We have discussed continued non-operative treatments including gentle exercise, use of medications and activity modification. Patient states that they would like to proceed with surgery at this time. We discussed the surgery process in detail including nothing by mouth 8 hrs prior to sugery, thorough washing of leg pior to coming to surgery. We discussed the multiple potential risks of anesthesia including respiratory, cardiac and patient positioning issues. We discussed the multiple risks of surgery particularly wound infection, deep venous thrombosis(DVT), persistent swelling, pain and stiffness after surgery, as well as worsening of pre-existing arthritic symptoms. Patient has agreed to understanding of these risks and would like to proceed. Nov, Primary osteoarthritis of left knee (ICD-10 - M17.12) Nov, Internal derangement of left knee (ICD-10 - M23.92) Nov, Pain in right knee (ICD-10 - M25.561) Nov, Pain in left knee (ICD-10 - M25.562) Nov, Other tear of medial meniscus, current injury, right knee, subsequent encounter (ICD-10 - S83.241D) [facility] Other 07-31-2023 Evaluation note* Encounter Date Diagnosis Assessment Notes Treatment Notes Treatment Clinical Notes Oct, Other tear of medial meniscus of right knee as current injury, initial encounter (ICD-10 - S83.241A) Extensive discussion about current condition and treatment options available. MRI images and findings reviewed with patient. Patient has sustained medial meniscal tear. We discussed living with this and potential knee arthroscopy. Patient would like to workup left knee pain prior to considering knee arthroscopy. I feel this is reasonable and we will proceed with MRI left knee Oct, Primary osteoarthritis of right knee (ICD-10 - M17.11) Oct, Primary osteoarthritis of left knee (ICD-10 - M17.12) Oct, Internal derangement of left knee (ICD-10 - M23.92) Extensive discussion about current condition and treatment options available. I am concerned about a potential meniscal tear that will not improve with conservative and non-operative treatments. Continued active use of the knee can lead to worsening of the condition and lead to irreversible damage to the knee. An MRI of the knee will be necessary to identify the source of pain and plan potential surgical treatment. Oct, Pain in right knee (ICD-10 - M25.561) Oct, Pain in left knee (ICD-10 - M25.562) [facility] Other 03-27-2023 Hospital Discharge instructions Patient Education 07/22/2022 10:14:42 Kidney Stones, Mhsm-ic-Druv Kidney Stones Kidney stones are rock-like masses that form inside of the kidneys. Kidneys are organs that make pee (urine). A kidney stone may move into other parts of the urinary tract, including: The tubes that connect the kidneys to the bladder (ureters). The bladder. The tube that carries urine out of the body (urethra). Kidney stones can cause very bad pain and can block the flow of pee. The stone usually leaves your body (passes) through your pee. You may need to have a doctor take out the stone. What are the causes? Kidney stones may be caused by: A condition in which certain glands make too much parathyroid hormone (primary hyperparathyroidism). A buildup of a type of crystals in the bladder made of a chemical called uric acid. The body makes uric acid when you eat certain foods. Narrowing (stricture) of one or both of the ureters. A kidney blockage that you were born with. Past surgery on the kidney or the ureters, such as gastric bypass surgery. What increases the risk? You are more likely to develop this condition if: You have had a kidney stone in the past. You have a family history of kidney stones. You do not drink enough water. You eat a diet that is high in protein, salt (sodium), or sugar. You are overweight or very overweight (obese). What are the signs or symptoms? Symptoms of a kidney stone may include: Pain in the side of the belly, right below the ribs (flank pain). Pain usually spreads (radiates) to the groin. Needing to pee often or right away (urgently). Pain when going pee (urinating). Blood in your pee (hematuria). Feeling like you may vomit (nauseous). Vomiting. Fever and chills. How is this treated? Treatment depends on the size, location, and makeup of the kidney stones. The stones will often pass out of the body through peeing. You may need to: Drink more fluid to help pass the stone. In some cases, you may be given fluids through an IV tube put into one of your veins at the hospital. Take medicine for pain. Make changes in your diet to help keep kidney stones from coming back. Sometimes, medical procedures are needed to remove a kidney stone. This may involve: A procedure to break up kidney stones using a beam of light (laser) or shock waves. Surgery to remove the kidney stones. Follow these instructions at home: Medicines Take mkce-voj-xzcegyp and prescription medicines only as told by your doctor. Ask your doctor if the medicine prescribed to you requires you to avoid driving or using heavy machinery. Eating and drinking Drink enough fluid to keep your pee pale yellow. You may be told to drink at least 8 10 glasses of water each day. This will help you pass the stone. If told by your doctor, change your diet. This may include: ?Limiting how much salt you eat. ?Eating more fruits and vegetables. ?Limiting how much meat, poultry, fish, and eggs you eat. Follow instructions from your doctor about eating or drinking restrictions. General instructions Collect pee samples as told by your doctor. You may need to collect a pee sample: ?24 hours after a stone comes out. ?8 12 weeks after a stone comes out, and every 6 12 months after that. Strain your pee every time you pee (urinate), for as long as told. Use the strainer that your doctor recommends. Do not throw out the stone. Keep it so that it can be tested by your doctor. Keep all follow-up visits as told by your doctor. This is important. You may need follow-up tests. How is this prevented? To prevent another kidney stone: Drink enough fluid to keep your pee pale yellow. This is the best way to prevent kidney stones. Eat healthy foods. Avoid certain foods as told by your doctor. You may be told to eat less protein. Stay at a healthy weight. Where to find more information National Kidney Foundation (NKF): www.kidney.org [facility] (UCF): www.urologyhealth.org Contact a doctor if: You have pain that gets worse or does not get better with medicine. Get help right away if: You have a fever or chills. You get very bad pain. You get new pain in your belly (abdomen). You pass out (faint). You cannot pee. Summary Kidney stones are rock-like masses that form inside of the kidneys. Kidney stones can cause very bad pain and can block the flow of pee. The stones will often pass out of the body through peeing. Drink enough fluid to keep your pee pale yellow. This information is not intended to replace advice given to you by your health care provider. Make sure you discuss any questions you have with your health care provider. Document Released: 09/30/2008 Document Revised: 08/31/2019 Document Reviewed: 08/31/2019 [employer] Card Patient Education 2019 [employer]. Follow Up Care 12/26/2021 13:33:59 With:KEZIA ARREGUIN, Eros Mckeon, URL Address: [address] [place] [address] [place], [place] [address]- When:01/22/2023 Comments:KUB [facility] 07-27-2022 Hospital Discharge instructions Patient Education 11/21/2021 12:49:44 Kidney Stones, Gkck-nq-Uuur Kidney Stones Kidney stones are rock-like masses that form inside of the kidneys. Kidneys are organs that make pee (urine). A kidney stone may move into other parts of the urinary tract, including: The tubes that connect the kidneys to the bladder (ureters). The bladder. The tube that carries urine out of the body (urethra). Kidney stones can cause very bad pain and can block the flow of pee. The stone usually leaves your body (passes) through your pee. You may need to have a doctor take out the stone. What are the causes? Kidney stones may be caused by: A condition in which certain glands make too much parathyroid hormone (primary hyperparathyroidism). A buildup of a type of crystals in the bladder made of a chemical called uric acid. The body makes uric acid when you eat certain foods. Narrowing (stricture) of one or both of the ureters. A kidney blockage that you were born with. Past surgery on the kidney or the ureters, such as gastric bypass surgery. What increases the risk? You are more likely to develop this condition if: You have had a kidney stone in the past. You have a family history of kidney stones. You do not drink enough water. You eat a diet that is high in protein, salt (sodium), or sugar. You are overweight or very overweight (obese). What are the signs or symptoms? Symptoms of a kidney stone may include: Pain in the side of the belly, right below the ribs (flank pain). Pain usually spreads (radiates) to the groin. Needing to pee often or right away (urgently). Pain when going pee (urinating). Blood in your pee (hematuria). Feeling like you may vomit (nauseous). Vomiting. Fever and chills. How is this treated? Treatment depends on the size, location, and makeup of the kidney stones. The stones will often pass out of the body through peeing. You may need to: Drink more fluid to help pass the stone. In some cases, you may be given fluids through an IV tube put into one of your veins at the hospital. Take medicine for pain. Make changes in your diet to help keep kidney stones from coming back. Sometimes, medical procedures are needed to remove a kidney stone. This may involve: A procedure to break up kidney stones using a beam of light (laser) or shock waves. Surgery to remove the kidney stones. Follow these instructions at home: Medicines Take [id number]-hij-azrxjtz and prescription medicines only as told by your doctor. Ask your doctor if the medicine prescribed to you requires you to avoid driving or using heavy machinery. Eating and drinking Drink enough fluid to keep your pee pale yellow. You may be told to drink at least 8 10 glasses of water each day. This will help you pass the stone. If told by your doctor, change your diet. This may include: ?Limiting how much salt you eat. ?Eating more fruits and vegetables. ?Limiting how much meat, poultry, fish, and eggs you eat. Follow instructions from your doctor about eating or drinking restrictions. General instructions Collect pee samples as told by your doctor. You may need to collect a pee sample: ?24 hours after a stone comes out. ?8 12 weeks after a stone comes out, and every 6 12 months after that. Strain your pee every time you pee (urinate), for as long as told. Use the strainer that your doctor recommends. Do not throw out the stone. Keep it so that it can be tested by your doctor. Keep all follow-up visits as told by your doctor. This is important. You may need follow-up tests. How is this prevented? To prevent another kidney stone: Drink enough fluid to keep your pee pale yellow. This is the best way to prevent kidney stones. Eat healthy foods. Avoid certain foods as told by your doctor. You may be told to eat less protein. Stay at a healthy weight. Where to find more information National Kidney Foundation (NKF): www.kidney.org [employer] (UCF): www.urologyhealth.org Contact a doctor if: You have pain that gets worse or does not get better with medicine. Get help right away if: You have a fever or chills. You get very bad pain. You get new pain in your belly (abdomen). You pass out (faint). You cannot pee. Summary Kidney stones are rock-like masses that form inside of the kidneys. Kidney stones can cause very bad pain and can block the flow of pee. The stones will often pass out of the body through peeing. Drink enough fluid to keep your pee pale yellow. This information is not intended to replace advice given to you by your health care provider. Make sure you discuss any questions you have with your health care provider. Document Released: 09/30/2008 Document Revised: 08/31/2019 Document Reviewed: 08/31/2019 [employer] Patient Education 2020 [employer]. Follow Up Care 11/14/2021 08:29:10 With:KEZIA ARREGUIN, Eros Mckeon, URL Address: [facility] [address] [place] [address]- When: Unknown [facility] 07-19-2022 NoteOPERATIVE NOTE OPERATION DATE: 11/13/2021 PREOPERATIVE DIAGNOSIS: 1. Left hydronephrosis with ureteral calculus. 2. Leukocytosis. 3. UTI. 4. Right renal calculi. POSTOPERATIVE DIAGNOSIS: 1. Left hydronephrosis with ureteral calculus. 2. Leukocytosis. 3. UTI. 4. Right renal calculi. PROCEDURE: 1. Cystoscopy. 2. Left retrograde pyelogram. 3. Left double J stent placement under fluoroscopic guidance. SURGEON: Levi Mast M.D. COMPLICATIONS: None. ANESTHESIA: Dr. Castellanos with general and 2% Xylocaine per urethra. INDICATIONS: Mrs. Plascencia is a 51-year-old female with a positive prior history of kidney stones who presents with a 9 mm left upper ureteral calculus with hydronephrosis and leukocytosis. Recommendation made for operative intervention with cystoscopy, retrograde pyelogram and a left double J stent. The possibility of ureteroscopy was discussed, if the stone has passed distally. She understands the risks, benefits and details of this procedure, including the risks of bleeding, infection, need for additional procedures, possible staged procedure with lithotripsy in the future. She understands this and wishes to proceed. She has already been on intravenous antibiotics. She does have sequential compression devices in place and functional throughout the case. PROCEDURE: She was then brought back to the operating room and a time out was performed. All were in agreement with the operative plan. After the successful induction of general anesthesia, she was placed in the modified dorsolithotomy position and prepped in the usual fashion. Betadine solution, draped appropriately and 2% Xylocaine jelly placed per urethra. A well lubricated, 22 Estonian cystourethroscope was passed into the bladder. Moderately tight at the bladder neck. Once into the bladder, teran endoscopy reveals no tumors or stones or diverticula. She does have a moderate cystocele present. Left retrograde pyelogram was then performed utilizing a 6 Estonian open ended ureteral catheter. The distal ureter was within normal limits. She has an obvious calcification in the left upper kidney region. This proved to be a large stone at the left UPJ. During the course of contrast injection, the stone was pushed into the left renal pelvis. There was moderate hydronephrosis. No other filling defects identified. I was able to negotiate a 0.035 Guidewire up the ureter, through the open ended catheter and into the kidney. This catheter was removed and then over the wire a 4.8 Estonian, 22-30 cm Microvasive double J stent was passed into the left kidney. The wire was removed and there was good curl within the kidney and the urinary bladder. There was a distinct push of extensive urine flow upon initial placement of the wire and the stent, indicating a fairly high grade hydronephrosis. The urine looked somewhat purulent as well. She tolerated the procedure well. She was transferred to the rcountyline and then back to PACU in satisfactory condition, stable vital signs. PLAN: Will be for transfer to the floor for postoperative management. Hopefully, she can be discharged home by tomorrow and then follow up in my office with a KUB. The most likely next step will be external lithotripsy. I have explained this to the patient's post-op and he is in agreement with the plan. CC: Sue Win M.D. : PSYCHIATRIC Signed and Approved by: DR EROS MAST 11/29/2021 08:56:00[facility]06-08-2022 NotePROCEDURE: XR KNEE RT 4V or > COMPARISON: None. HISTORY: Pain in right knee FINDINGS: BONES:No acute fracture or dislocation. Mild osteoarthritis with marginal osteophyte formation SOFT TISSUES:Negative. No visible soft tissue swelling. EFFUSION:None visible. OTHER: Negative. IMPRESSION: Mild osteoarthritis Electronically authenticated by: KODY GARRISON Date: 2021-10-03 07:59[place] No data available for this section [facility] Evaluation + Plan note Future Appointments Appointment Date:01/27/2023 08:00:00 AM Scheduled Provider:Eros MAST MD Location:[facility] Appointment Type:URO Office Visit [facility] Evaluation note* Diagnosis Vaginal discharge Leukorrhea, not specified as infective Women's annual routine gynecological examination documented in this encounter [facility] Work Phone: evaluation noteNo assessment information available [facility] Work Phone: Evaluation [facility]No [facility] Other History general Narrative - Reported* Type Description Date Medical History GERD Medical History Hypothyroidism [facility] Moz Other History general Narrative - Reported* Type Description Date Medical History GERD Medical History Hypothyroidism Surgical History 1. LEFT knee arthros copy with partial medial meniscectomy 2. Chondral debridement medial femoral condyle, medial tibial plateau, medial patellar facet [facility] Moz Other Progress note No data available for this section 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 ACP-Advance Directive ACP-Power of Geosciences Professor Advance Directive Response Recorded Date/ Time Advance Directives No November 26 11:36am Advance Directive Response Recorded Date/ Time Advance Directives No December 20, 2022 12:52pm Chief Complaint and Reason for Visit Chief Complaint Kidney Ston Kidney Ston Kidney Stones Kidney Stones Kidney Stones Chief Complaint Knee Pain Family History Relationship Condition Age at Onset Recorded Date/T ivette Not Specified Atrial fibrillation Unknown Disorder of hemostasis Unknown father Status post four ves shahriar coronary artery bypass Unknown Coronary artery disease Unknown Malignant neoplasm of prostate Unknown Relationship Condition Age at Onset Recorded Date/T ivette Not Specified Disorder of hemostasis Unknown Atrial fibrillation Unknown father Malignant neoplasm of prostate Unknown Coronary artery disease Unknown Status post four ves shahriar coronary artery bypass Unknown Malignant neoplasm of bone Unknown Summary Purpose Additional Source Comments Care Teams (unrecognized sec tion and content) Customer Support Advisor Relationship Specialty [place] [address] [place] [address] PCP - General Family Medicine 01/16/16 Team Status: Inactive Member Role Status Dates Sue Win MD Primary Care Provider Active Eros Mast MD Attending Provider Active Team Status: Inactive Member Role Status Dates Eros Mast MD Attending Provider Active Sue Win MD Primary Care Provider Active Team Status: Active Member Role Status Dates Sue Win MD Primary Care Provider Active Team Status: Inactive Member Role Status Dates Sue Win MD Primary Care Provider Active Shubham Rodrigues MD Attending Provider Active INFORMATION SOURCE (unrecogn ized section and content) DATE CREATED AUTHOR 03/29/2022 [facility] DATE CREATED AUTHOR AUTHOR'S ORGANIZ ATION 08/18/2022 [facility] DATE CREATED AUTHOR AUTHOR'S ORGANIZ ATION 01/31/2023 [facility] DATE CREATED AUTHOR AUTHOR'S ORGANIZ ATION 02/07/2023 [facility] REASON FOR VISIT (unrecogniz ed section and content) Bilateral Knee PainMRI Resul ts Left Kneepost op scriptsRecheck Left KneeRecheck Left KneeNo Information Goals (unrecognized section and content) Goals may be documented in a n alternate section FOR RECORDS PERTAINING TO PATIENTS WHO ARE OR HAVE BEEN ENROLLED IN A CHEMICAL DEPENDENCY/SUBSTANCEABUSE PROGRAM, SOME INFORMATION MAY BE OMITTED. This clinical summary was aggregated from multiple sources. Caution should be exercised in using it in the provision of clinical care. This summary normalizes information from multiple sources, and as a consequence, information in this document may materially change the coding, format and clinical context of patient data. In addition, data may be omitted in some cases. CLINICAL DECISIONS SHOULD BE BASED ON THE PRIMARY CLINICAL RECORDS. [facility]. provides no warranty or guarantee of the accuracy or completeness of information in this document.
== END 2023-04-30 09:24 | disposition home or self-care (01) ==
LOC: MAMMO 09:23
PROVIDERS: PCP Family Medicine; Visit Provider Family Medicine
DX: Z12.31 Encounter for screening mammogram for malignant neoplasm of breast (principal); Z80.42 Family history of malignant neoplasm of prostate; Z80.8 Family history of malignant neoplasm of other organs or systems; R92.0 Mammographic microcalcification found on diagnostic imaging of breast
CPT/HCPCS: 77063; 77067

== ENCOUNTER 2023-05-13 13:41 | Outpatient (OUT) | payer OTHER, SELFPAY ==
--- NOTE | 2023-05-13 13:46 | US_ITS ---
Patient Name: KAROL MARCOS MR#: [id number] : 1970 Exam Date: 05/13/2023 Ordering Doctor: DR Neymar Win . RADIOLOGY REPORT PROCEDURE: MM DIAGNOSTIC MAMMO UNILAT RT, 05/13/2023, 13:46 US BREAST RT LIMITED, 05/13/2023, 14:16 COMPARISON: MG MAMM SCREEN 3D ANN-MARIE CAD, 03/21/2021. MG MAMM SCREEN 3D ANN-MARIE CAD, 03/27/2022. MM TOMOSYNTHESIS SCREENING BI, 04/30/2023. INDICATIONS: Abnormal Mammogram Calculator Name NCI Breast Cancer Risk Assessment Tool 5 Year Breast Cancer Risk 1.90% Lifetime Breast Cancer Risk 13.60% Personal Breast Cancer No Personal Ovarian Cancer No Treatments None Family Cancers Father with bone & prostate cancer at age 69. LOCATION: [facility] BREAST COMPOSITION: Heterogeneously dense,which may obscure small masses. FINDINGS: DIAGNOSTIC CATEGORY 3--PROBABLY BENIGN FINDING. THE FOLLOWING FINDING(S) HAS A HIGH PROBABILITY OF A BENIGN ETIOLOGY: Comparison made to multiple prior exams. Two spot magnification views demonstrate pleomorphic microcalcifications with an area of focal asymmetry upper outer quadrant. There is a micro clip marker projected over this area on the CC projection but slightly removed on the MLO projection. Ultrasound was performed demonstrating at the 10 o'clock position in area of heterogeneous echogenicity, ill-defined with possible calcifications. Cannot determine definitively of this corresponds to the mammographic findings. A 2nd 3.6 mm area of hypo echogenicity is identified at the 12 o'clock position, nonspecific. The differences on mammography could be related to new tomographic technique. Short interval follow-up with repeat right diagnostic mammogram to include spot magnification images in 4-6 months is recommended RECOMMENDATIONS: SHORT TERM FOLLOW-UP DIAGNOSTIC MAMMOGRAM RIGHT BREAST IN 6 MONTHS. PLEASE NOTE: A NORMAL MAMMOGRAM DOES NOT EXCLUDE THE POSSIBILITY OF BREAST CANCER. A CLINICALLY SUSPICIOUS PALPABLE LUMP SHOULD BE BIOPSIED. Dictated by: Elijah Ricks MD on 05/13/2023 at 14:40 Approved by: Elijah Ricks MD on 05/13/2023 at 14:45
== END 2023-05-13 13:42 | disposition home or self-care (01) ==
LOC: MAMMO 13:41
PROVIDERS: PCP Family Medicine; Visit Provider Family Medicine
DX: R92.8 Other abnormal and inconclusive findings on diagnostic imaging of breast (principal); Z80.42 Family history of malignant neoplasm of prostate; Z84.89 Family history of other specified conditions
CPT/HCPCS: 76642; 77065

== ENCOUNTER 2023-09-02 07:13 | Outpatient (OUT) | payer OTHER, SELFPAY ==
--- OUTSIDE RECORDS SUMMARY | 2023-09-02 07:20 | XMS_ITS | CCD ---
Author Organization [facility] Care Team Providers Care Slackline Operator Name Role Phone Sue Win Primary Care Provider [phone] Sue Win Primary Care Physician [phone] MD Jordi Mast Attending Provider [phone] MD Sue Win Primary Care Provider [phone] TYREEY ., DR ROGERS Consulting Unavailable HOY ., DR ROGERS Primary Care Unavailable HOY ., DR ROGERS Attending Unavailable HOY ., DR ROGERS Admitting Unavailable ZIEBER, DR ZENAIDA Martin Consulting Unavailable HOY ., DR ROGERS Consulting Unavailable HOY ., DR ROGERS Primary Care Unavailable HOY ., DR ROGERS Attending Unavailable HOY ., DR ROGERS Admitting Unavailable ZIEBER, DR ZENAIDA Martin Consulting Unavailable TIMMIS, DR GABRIEL Consulting Unavailable HOY ., DR ROGERS Primary Care Unavailable TIMMIS, DR GABRIEL Attending Unavailable TIMMIS, DR GABRIEL Admmessi Unavailable FAYETTE, DR KODY Pappas Consulting Unavailable HOY ., DR ROGERS Consulting Unavailable HOY ., DR ROGERS Attending Unavailable HOY ., DR ROGERS Admitting Unavailable HOY ., DR ROGERS Primary Care Unavailable COOK, DR JORDI Mckeon Consulting Unavailable MADDY LAGUNA Consulting Unavailable AGUBOSIM, DEYANIRA Consulting Unavailable SAID, BINOR Consulting Unavailable COOK, DR JORDI Mckeon Consulting Unavailable TYREEY ., DR ROGERS Primary Care Unavailable MANNIE, DR JORDI Mckeon Attending Unavailable COOK, DR JORDI Mckeon Admitting Unavailable ZIEBER, DR ZENAIDA Martin Consulting Unavailable COOK, DR JORDI Mckeon Consulting Unavailable HOY ., DR ROGERS Primary Care Unavailable COOK, DR JORDI Mckeon Attending Unavailable COOK, DR JORDI Mckeon Admitting Unavailable HOY ., DR ROGERS Consulting Unavailable HOY ., DR ROGERS Primary Care Unavailable HOY ., DR ROGERS Attending Unavailable HOY ., DR ROGERS Admitting Unavailable FAYETTE, DR KODY Pappas Consulting Unavailable MANNIE, DR JORDI Mckeon Consulting Unavailable YAIMA Thakkar, DR ROGERS Primary Care Unavailable MANNIE, DR JORDI Mckeon Attending Unavailable MANNIE, DR JORDI Mckeon Admitting Unavailable DAHIANA, DR ZENAIDA Martin Consulting Unavailable COOK, DR JORDI Mckeon Consulting Unavailable YAIMA Thakkar, DR ROGERS Primary Care Unavailable MANNIE, DR JORDI Mckeon Attending Unavailable MANNIE, DR JORDI Mckeon Admitting Unavailable DAHIANA, DR ZENAIDA Martin Consulting Unavailable Shubham Rodrigues Unavailable MD Sue Win Primary Care Provider MD Shubham Rodrigues Attending Provider Jordi MAST Attending Unavailable MANNIE, Jordi Mckeon Attending Unavailable Jordi MAST Attending Unavailable Sue Win Primary Care Unavailable Chase, Shubham Admitting Unavailable Chase, Shubham Attending Unavailable Sue Win Primary Care Unavailable Olekarri, Shubham Admitting Unavailable Chase, Shubham Attending Unavailable SUE WIN Primary Care Unavailable ROSAURA YANG Referring Unavailable Allergies Allergy Classification Reported Allergen(s) Allergy Type Date of Onset Reaction(s) Facility (1 source) No Known Medication Allergies; Translations: [No Known Medication Allergies] Propensity to adverse reactions (disorder) [facility] Repository Medications Current Medications Medication Drug Class(es) Dates Sig (Normalized) Sig (Original) acetaminophen 325 mg / HYDROcodone bitartrate 5 mg oral tablet (10 sources) Opioid Agonist Start: 12-31-2022 take 1 tablet by mouth every four hours as needed for pain HYDROcodone-Aceta minophen 5-325 MG 1 tablet as needed for pain Orally up to every 4 hrs for 5 days PB: [id number] Dec, Active Start: 11-29-2021 End: 12-13-2021 take [...] Start: 11-03-2018 take 1 tablet by gee every eight hours Dicyclomine HCl 20 MG [...] Start: 02-09-2020 take 2 capsules by m out once daily [facility] ESOMEPRAZOLE MAGNESIUM 20 MG [...] 11-16-2021 Episodic Other aftercare (1 source) Other chcf (current) drug therapy; Translations: [OTH CHEF BROILER OR FRY CURRENT DRUG THERAPY] Onset: 11-16-2021 Episodic Other [...] Test Name Value Interpretation Reference Range Facility Cytology Reporton 05-12-2023 Cytology report Cyto stain.thin prep Doc (Cvx/Vag) (NOTE) Path Number: [id number] DIAGNOSIS Imaged ThinPrep Pap - Cervical (1 monolayer slide): Specimen Adequacy: Satisfactory for evaluation. -Endocervical/trans formation zone component is absent. Descriptive Diagnosis: Negative for intraepithelial lesion or malignancy. Cytotech Screener: EY Electronically Signed Out Margot Rand CT(ASCP) ey/05/28/2023 Source of Specimen: A: Imaged ThinPrep Pap - Cervical (1 monolayer slide) HPV Reflex?............ 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 The Pap smear is a screening test primarily for squamous epithelial lesions, which is subject to both false negative and false positive results. Your patient should be reminded to consult you immediately if she experiences any suspicious signs or symptoms, regardless of her Pap smear result. GYNECOLOGIC CYTOLOGY REPORT Patient Name: KAROL PLASCENCIA Leonarda [facility] Rec: [id number] [facility] ANATOMIC PATHOLOGY [address] [place] [address]. [place], [place] [address] [facility] Ambulatory Visit Summaryon 1 Ambulatory Visit Summary KAROL PLASCENCIA :1970 Visit Date:01/27/2023 Ambulatory Visit Instructions Your Diagnosis Kidney stone Tests Performed Urnls Dip Stick Auto w/o Microscopy POC 42298 XR Abdomen 1 View -- Results Pending -- Please visit your patient portal for your results or contact your primary care physician. Your Care Team Attending Physician - MANNIE ARREGUIN, Jordi Mckeon Primary Care Physician - Sue Win MD [...] Follow-Up Appointments Friday 8:00 AM EDT With: MANNIE ARREGUIN, Jordi Mckeon Where: [facility] Patient Educationon 01-28-20 Patient Education Nephrology Dietary Guidelines to Help [...] Spinach (cooked), rhubarb, beets, sweet potatoes, and Burmese chard. ? Peanuts. ? Potato chips, albanian fries, and baked potatoes with skin on. ? Nuts and nut products. ? Chocolate. ? If you regularly take a diuretic medicine, make sure to eat at least 1 or 2 servings of fruits or vegetables that are high in potassium each day. These include: ? Avocado. ? Banana. ? Laurel, prune, carrot, or tomato juice. ? Baked [...] fish oil, or vitamin B6. ? Take slug-ccf-xmjramh and prescription medicines only as told by your health care provider. These include supplements. What foods should I limit? Limit your in (more content not included)... Normal [facility] Urology Office/Clinic Noteon 01-27-2023 Urology Office/Clinic Note Chief Complaint Pt is here for 6 month w/ KUB HPI Staff 52 yo female here for 6 month f/u with KUB. Previous Dx: kidney stone. S/p ESWL 12/21/21, Cysto/stent placement 11/29/21, and Cysto 11/13/21. Litholink done 08/12/22. KUB done 01/23/23 at [facility]. Dysuria: denies Incomplete bladder emptying: denies [...] that visit Follow-up With When Contact Information MANNIE ARREGUIN, Jordi Mckeon, URL In [address] [place] [address]- Additional Instructions: w/KUB Patient Education Dietary Guidelines to Help Prevent Kidney Stones I, Radha Townsend, personally scribed for Dr. Mast on 01/27/2023 08:33:07. . Documentation recorded by the scribe, Radha Townsend, accurately reflects the services(s) I performed and decisions made by me. Authenticated by Dr. Mast on 01/27/2023 08:49:28. Portions of this record may have been created with voice recognition artificial intelligence software, specifically [employer], [employer] and or [employer]. Substitutions may have occurred due to the [...] mg T (more content not included)... Normal [facility] Comment on above: Result Comment: Elec tronically Signed By: Jordi MAST MD\.br\Date and Time Signed: 01/27/23 08:50 EDT\.br\Electronically Co-Signed By: Radha Townsend\.br\Date and Time Co-Signed: 01/27/23 08:33 EDT RAD - MISCon 01-24-2023 RAD - MIS [id number] 2C#1.00CD:127 Normal [facility] Alanine aminotransferase [En zymatic activity/volume] in Serum or PlasmaOrdered By: Shubham Rodrigues on 12-25-2022 ALT [Catalytic activity/Vol] 27 U/L 7-52 [facility] Albumin [Mass/volume] in Ser um or Plasma by Bromocresol green (BCG) dye binding methoOrdered By: Shubham Rodrigues on 12-25-2022 Albumin BCG dye [Mass/Vol] 3.9 g/dL 3.5-5.7 [facility] Alkaline phosphatase [Enzyma tic activity/volume] in Serum or PlasmaOrdered By: Shubham Rodrigues on 12-25-2022 ALP [Catalytic activity/Vol] 138 U/L 34-104 [facility] Aspartate aminotransferase [ Enzymatic activity/volume] in Serum or PlasmaOrdered By: Shubham Rodrigues on 12-25-2022 AST [Catalytic activity/Vol] 20 U/L 13-39 [facility] Basophils Auto (Bld) [#/Vol] Ordered By: Shubham Rodrigues on 12-25-2022 Basophils (Bld) [#/Vol] 0.1 10*3/uL 0.0-0.2 [facility] Basophils/100 WBC Auto (Bld) Ordered By: Shubham Chase on 12-25-2022 Basophils/100 WBC (Bld) 0.8 % . [facility] Bilirubin.total [Mass/volume ] in Serum or PlasmaOrdered By: Shubham Rodrigues on 12-25-2022 Bilirubin [Mass/Vol] 0.4 mg/dL 0.3-1.0 [facility] CMP with reflex to A1Con Albumin [Mass/Vol] 3.9 g/dL Normal 3.5-5.7 [facility] Comment on above: Performed By: #### C BC, CMP wRFX A1C #### [facility] [address] Albumin/Globulin [Mass ratio] 1.4 {ratio} Normal [facility] Comment on above: Performed By: #### C BC, CMP wRFX A1C #### [facility] [address] ALP [Catalytic activity/Vol] 138 U/L High 34-104 [facility] Comment on above: Result Comment: PERF ORMED BY: [place] [address] PATHOLOGIST ENTRY LEVEL RECEPTIONIST MULUGETA ANGLIN M.D. Performed By: #### C BC, CMP wRFX A1C #### [facility] [address] [place] [address] [place] ALT [Catalytic activity/Vol] 27 U/L Normal 7-52 [facility] Comment on above: Performed By: #### C BC, CMP wRFX A1C #### [facility] [address] [place] [id number] [place] Anion gap [Moles/Vol] 10.0 mmol/L Normal 6.0-15.[address] [facility] Comment on above: Performed By: #### C BC, CMP wRFX A1C #### [facility] [address] [place] [address] [place] AST [Catalytic activity/Vol] 20 U/L Normal 13-39 [facility] Comment on above: Performed By: #### C BC, CMP wRFX A1C #### [facility] [address] [place] [address] [place] Bilirubin [Mass/Vol] 0.4 mg/dL Normal 0.3-1.0 [facility] Comment on above: Performed By: #### C BC, CMP wRFX A1C #### [facility] [address] [place] [address] [place] Calcium [Mass/Vol] 9.1 mg/dL Normal 8.6-10.3 [facility] Comment on above: Performed By: #### C BC, CMP wRFX A1C #### [facility] [address] Chloride [Moles/Vol] 104 mmol/L Normal 98-107 [facility] Comment on above: Performed By: #### C BC, CMP wRFX A1C #### [facility] [address] [place] [address] CO2 [Moles/Vol] 30.2 mmol/L Normal 21.0-31.0 [facility] Comment on above: Performed By: #### C BC, CMP wRFX A1C #### [address] Creatinine [Mass/Vol] 0.69 mg/dL Normal 0.60-1.20 [facility] Comment on above: Performed By: #### C BC, CMP wRFX A1C #### [facility] [address] [place] [address] [place] GFR/1.73 sq M.predicted MDRD (S/P/Bld) [Vol rate/Area] mL/min/{1.73_m2} [facility] Comment on above: Performed By: #### C BC, CMP wRFX A1C #### [facility] [address] [place] [address] [place] Globulin (S) [Mass/Vol] 2.8 g/dL Normal [facility] Comment on above: Performed By: #### C BC, CMP wRFX A1C #### [facility] [address] [place] [id number] [place] Glucose [Mass/Vol] 99 mg/dL Normal 70-100 [facility] Comment on above: Performed By: #### C BC, CMP wRFX A1C #### [facility] [address] [place] [id number] [place] Potassium [Moles/Vol] 4.2 mmol/L Normal 3.5-5.1 [facility] Comment on above: Performed By: #### C BC, CMP wRFX A1C #### [facility] [address] [place] [phone] [place] Protein [Mass/Vol] 6.7 g/dL Normal 6.4-8.9 [facility] Comment on above: Performed By: #### C BC, CMP wRFX A1C #### [facility] [address] [place] [address] [place] Sodium [Moles/Vol] 140 mmol/L Normal 136-145 [facility] Comment on above: Performed By: #### C BC, CMP wRFX A1C #### [facility] [address] [place] [phone] [place] Urea nitrogen [Mass/Vol] 18 mg/dL Normal 7-25 [facility] Comment on above: Performed By: #### C BC, CMP wRFX A1C #### [facility] [address] [place] [phone] [place] Calcium [Mass/volume] in Ser um or PlasmaOrdered By: Shubham Rodrigues on 12-25-2022 Calcium [Mass/Vol] 9.1 mg/dL 8.6-10.3 [facility] Carbon dioxide, total [Moles /volume] in Serum or PlasmaOrdered By: Shubham Rodrigues on 12-25-2022 CO2 [Moles/Vol] 30.2 mmol/L 21.0-31.0 [facility] Chloride [Moles/volume] in S gerry or PlasmaOrdered By: Shubham Rodrigues on 12-25-2022 Chloride [Moles/Vol] 104 mmol/L 98-107 [facility] Complete Blood Count Auto Di ffon 12-25-2022 Basophils (Bld) [#/Vol] 0.1 10*3/uL Normal 0.0-0.2 [facility] Comment on above: Result Comment: PERF ORMED BY: [place] [address] PATHOLOGIST ENTRY LEVEL RECEPTIONIST MULUGETA ANGLIN M.D. Performed By: #### C BC, CMP wRFX A1C #### [facility] [address] [place] [address] Basophils/100 WBC (Bld) 0.8 % Normal . [facility] Comment on above: Performed By: #### C BC, CMP wRFX A1C #### [facility] [address] [place] [address] Eosinophils (Bld) [#/Vol] 0.2 10*3/uL Normal 0.0-0.45 [facility] Comment on above: Performed By: #### C BC, CMP wRFX A1C #### [address] Eosinophils/100 WBC (Bld) 3.0 % Normal . [facility] Comment on above: Performed By: #### C BC, CMP wRFX A1C #### [address] Erythrocyte distribution width (RBC) [Ratio] 14.4 % Normal 11.9-15.3 [facility] Comment on above: Performed By: #### C BC, CMP wRFX A1C #### [facility] [address] [place] [address] Hematocrit (Bld) [Volume fraction] 39.1 % Normal 34.0-46.4 [facility] Comment on above: Performed By: #### C BC, CMP wRFX A1C #### [address] Hemoglobin (Bld) [Mass/Vol] 13.0 g/dL Normal 11.8-15.4 [facility] Comment on above: Performed By: #### C BC, CMP wRFX A1C #### [address] [place] [address] [place] Lymphocytes (Bld) [#/Vol] 1.5 10*3/uL Normal 1.00-4.8 [facility] Comment on above: Performed By: #### C BC, CMP wRFX A1C #### [facility] [address] Lymphocytes/100 WBC (Bld) 22.8 % Normal . [facility] Comment on above: Performed By: #### C BC, CMP wRFX A1C #### [place] [address] [place] MCH (RBC) [Entitic mass] 28.9 pg Normal 24.7-34.3 [facility] Comment on above: Performed By: #### C BC, CMP wRFX A1C #### [address] MCV (RBC) [Entitic vol] 86.9 fL Normal 80-100 [facility] Comment on above: Performed By: #### C BC, CMP wRFX A1C #### [address] Mean Corpuscular HGB Conc 33.2 g/dL Normal 32.0-35.0 [facility] Comment on above: Performed By: #### C BC, CMP wRFX A1C #### [place] [address] [place] Monocytes (Bld) [#/Vol] 0.3 10*3/uL Normal 0.0-0.8 [facility] Comment on above: Performed By: #### C BC, CMP wRFX A1C #### [place] [address] [place] Monocytes/100 WBC (Bld) 4.8 % Normal . [facility] Comment on above: Performed By: #### C BC, CMP wRFX A1C #### [place] [address] [place] Neutrophils (Bld) [#/Vol] 4.7 10*3/uL Normal 1.8-7.7 [facility] Comment on above: Performed By: #### C BC, CMP wRFX A1C #### [facility] [address] [place] [address] [place] Neutrophils/100 WBC (Bld) 68.6 % Normal . [facility] Comment on above: Performed By: #### C BC, CMP wRFX A1C #### [facility] [address] [place] [address] [place] NRBC% 0.1 /100{WBC} Normal 0-0.5 [facility] Comment on above: Performed By: #### C BC, CMP wRFX A1C #### [facility] [address] Platelet mean volume (Bld) [Entitic vol] 7.2 fL Normal 6.3-10.7 [facility] Comment on above: Performed By: #### C BC, CMP wRFX A1C #### [facility] [address] Platelets (Bld) [#/Vol] 334 10*3/uL Normal 150-450 [facility] Comment on above: Performed By: #### C BC, CMP wRFX A1C #### [facility] [address] RBC (Bld) [#/Vol] 4.50 10*6/uL Normal 3.60-5.00 [facility] Comment on above: Performed By: #### C BC, CMP wRFX A1C #### [facility] [address] [place] [address] [place] WBC (Bld) [#/Vol] 6.8 10*3/uL Normal 3.8-11.6 [facility] Comment on above: Performed By: #### C BC, CMP wRFX A1C #### [facility] [address] [place] [address] [place] Creatinine [Mass/volume] in Serum or PlasmaOrdered By: Shubham Rodrigues on 12-25-2022 Creatinine [Mass/Vol] 0.69 mg/dL 0.60-1.20 [facility] ECG 12 lead ECGon 12-25-2022 ECG 12 lead ECG [facility] Main [place] [address] [place] [address] Electrocardiograph Report Signed Patient: Karol Plascencia MR#: [id number] 160 : 1970 Acct:[id number] Age/Sex: 52 / F ADM Date: 12/25/22 Loc: PS Room: Type: [facility] Attending Dr: Shubham Rodrigues MD Ordering Provider: [...] No significant change was found Confirmed by TL BRYAN DO ([id number]) on 12/25/2022 11:34:46 AM Referred By: CHASE Electronically Signed By:TL BRYAN DO Transcribed By: MUS Signed By Tl Bryan DO 12/25 1134 Normal [facility] Eosinophils Auto (Bld) [#/Vo l]Ordered By: Shubham Rodrigues on 12-25-2022 Eosinophils (Bld) [#/Vol] 0.2 10*3/uL 0.0-0.45 [facility] Eosinophils/100 WBC Auto (Bl d)Ordered By: Shubham Rodrigues on 12-25-2022 Eosinophils/100 WBC (Bld) 3.0 % . [facility] Erythrocyte distribution wid th Auto (RBC) [Ratio]Ordered By: Shubham Rodrigues on 12-25-2022 Erythrocyte distribution width (RBC) [Ratio] 14.4 % 11.9-15.3 [facility] Globulin Calc (S) [Mass/Vol] Ordered By: Shubham Rodrigues on 12-25-2022 Globulin (S) [Mass/Vol] 2.8 g/dL [facility] Glucose [Mass/volume] in Ser um or PlasmaOrdered By: Shubham Rodrigues on 12-25-2022 Glucose [Mass/Vol] 99 mg/dL 70-100 [facility] Hematocrit Auto (Bld) [Volum e fraction]Ordered By: Shubham Rodrigues on 12-25-2022 Hematocrit (Bld) [Volume fraction] 39.1 % 34.0-46.4 [facility] Hemoglobin [Mass/volume] in BloodOrdered By: Shubham Rodrigues on 12-25-2022 Hemoglobin (Bld) [Mass/Vol] 13.0 g/dL 11.8-15.4 [facility] Leukocytes [#/volume] correc darren for nucleated erythrocytes in Blood by Automated counOrdered By: Shubham Rodrigues on 12-25-2022 WBC corrected for nucl RBC Auto (Bld) [#/Vol] 6.8 10*3/uL 3.8-11.6 [facility] Lymphocytes Auto (Bld) [#/Vo l]Ordered By: Shubham Rodrigues on 12-25-2022 Lymphocytes (Bld) [#/Vol] 1.5 10*3/uL 1.00-4.8 [facility] Lymphocytes/100 WBC Auto (Bl d)Ordered By: Shubham Rodrigues on 12-25-2022 Lymphocytes/100 WBC (Bld) 22.8 % . [facility] MCH Auto (RBC) [Entitic mass ]Ordered By: Shubham Rodrigues on 12-25-2022 MCH (RBC) [Entitic mass] 28.9 pg 24.7-34.3 [facility] MCHC Auto (RBC) [Mass/Vol]Or dered By: Shubham Rodrigues on 12-25-2022 MCHC (RBC) [Mass/Vol] 33.2 g/dL 32.0-35.0 [facility] MCV Auto (RBC) [Entitic vol] Ordered By: Shubham Rodrigues on 12-25-2022 MCV (RBC) [Entitic vol] 86.9 fL 80-100 [facility] Monocytes Auto (Bld) [#/Vol] Ordered By: Shubham Rodrigues on 12-25-2022 Monocytes (Bld) [#/Vol] 0.3 10*3/uL 0.0-0.8 [facility] Monocytes/100 WBC Auto (Bld) Ordered By: Shubham Rodrigues on 12-25-2022 Monocytes/100 WBC (Bld) 4.8 % . [facility] Neutrophils Auto (Bld) [#/Vo l]Ordered By: Shubham Rodrigues on 12-25-2022 Neutrophils (Bld) [#/Vol] 4.7 10*3/uL 1.8-7.7 [facility] Neutrophils/100 WBC Auto (Bl d)Ordered By: Shubham Rodrigues on 12-25-2022 Neutrophils/100 WBC (Bld) 68.6 % . [facility] No Panel InformationOrdered By: Shubham Rodrigues on 12-25-2022 Estimated GFR (CKD-EPI) > 60.0 mL/Min [facility] Pharmacy Creatinine Clearance (Chem N/A [facility] Nucleated erythrocytes [Pres ence] in Blood by Automated countOrdered By: Shubham Rodrigues on 12-25-2022 Nucleated RBC Auto Ql (Bld) 0.1 /100{WBC} 0-0.5 [facility] Platelet mean volume Auto (B ld) [Entitic vol]Ordered By: Shubham Rodrigues on 12-25-2022 Platelet mean volume (Bld) [Entitic vol] 7.2 fL 6.3-10.7 [facility] Platelets Auto (Bld) [#/Vol] Ordered By: Shubham Rodrigues on 12-25-2022 Platelets (Bld) [#/Vol] 334 10*3/uL 150-450 [facility] Potassium [Moles/volume] in Serum or PlasmaOrdered By: Shubham Rodrigues on 12-25-2022 Potassium [Moles/Vol] 4.2 mmol/L 3.5-5.1 [facility] Protein [Mass/volume] in Ser um or PlasmaOrdered By: Shubham Rodrigues on 12-25-2022 Protein [Mass/Vol] 6.7 g/dL 6.4-8.9 [facility] RBC Auto (Bld) [#/Vol]Ordere d By: Shubham Rodrigues on 12-25-2022 RBC (Bld) [#/Vol] 4.50 10*6/uL 3.60-5.00 [facility] Serum or plasma albumin/glob ulin mass ratioOrdered By: Shubham Rodrigues on 12-25-2022 Albumin/Globulin [Mass ratio] 1.4 {ratio} [facility] Serum or plasma anion gap de terminationOrdered By: Shubham Rodrigues on 12-25-2022 Anion gap [Moles/Vol] 10.0 mmol/L 6.0-15.[address] [facility] Sodium [Moles/volume] in Ser um or PlasmaOrdered By: Shubham Rodrigues on 12-25-2022 Sodium [Moles/Vol] 140 mmol/L 136-145 [facility] Urea nitrogen [Mass/volume] in Serum or PlasmaOrdered By: Shubham Rodrigues on 12-25-2022 Urea nitrogen [Mass/Vol] 18 mg/dL 7-25 [facility] WBC Auto (Bld) [#/Vol]Ordere d By: Shubham Rodrigues on 12-25-2022 WBC (Bld) [#/Vol] 6.8 10*3/uL 3.8-11.6 [facility] Lab Reportson 08-21-2022 Lab Reports [id number] 59#1.00CD:127 Normal [facility] Lab Reportson 08-14-2022 Lab Reports [id number] 16#1.00CD:127 Normal [facility] PTH INTACTon 08-13-2022 PTH, Intact 59 pg/mL Normal 15-65 [facility] Comment on above: Performed By: #### P THINT ####[facility] [address] [place] [id number]. Mikaela Caldwell BUNon 08-12-2022 Urea nitrogen [Mass/Vol] 12.0 mg/dL Normal 7.0-18.0 [facility] Comment on above: Performed By: #### C A, K, CL, BUN, URIC, CO2, CREA, NA ####[facility] [address] [place], [place] [address]Jj. Mikaela Caldwell CALCIUMon 08-12-2022 Calcium [Mass/Vol] 9.0 mg/dL Normal 8.5-10.1 [facility] Comment on above: Performed By: #### C A, K, CL, BUN, URIC, CO2, CREA, NA ####[facility] [address] [place] [address]Dr. Mikaela Caldwell CHLORIDEon 08-12-2022 Chloride [Moles/Vol] 107 mmol/L Normal 98-107 [facility] Comment on above: Performed By: #### C A, K, CL, BUN, URIC, CO2, CREA, NA ####[facility] [address] [place] [address]. [facility] CO2on 08-12-2022 CO2 [Moles/Vol] 29.7 mmol/L Normal 21.0-32.0 [facility] Comment on above: Performed By: #### C A, K, CL, BUN, URIC, CO2, CREA, NA ####[facility] [address] [place] [address]Dr. [facility] CREATININEon 08-12-2022 Creatinine [Mass/Vol] 0.85 mg/dL Normal 0.55-1.02 [facility] Comment on above: Performed By: #### C A, K, CL, BUN, URIC, CO2, CREA, NA ####[facility] [address] [place] [address]Dr. [facility] EGFR-AF MARTINIQUAIS >60 Normal >=60 [facility] Comment on above: Performed By: #### C A, K, CL, BUN, URIC, CO2, CREA, NA ####[facility] [address] [place], [place] [address]Dr. [facility] EGFR-NON AF MARTINIQUAIS >60 Normal >=60 [facility] Comment on above: Performed By: #### C A, K, CL, BUN, URIC, CO2, CREA, NA ####[facility] [address] [place], [place] [address]Dr. Mikaela Caldwell NAon 08-12-2022 Sodium [Moles/Vol] 142 mmol/L Normal 136-145 [facility] Comment on above: Performed By: #### C A, K, CL, BUN, URIC, CO2, CREA, NA ####[facility] [address] [place], [place] [address]In. Mikaela Caldwell POTASSIUMon 08-12-2022 Potassium [Moles/Vol] 3.9 mmol/L Normal 3.5-5.1 [facility] Comment on above: Performed By: #### C A, K, CL, BUN, URIC, CO2, CREA, NA ####[facility] [address] [place], [place] [address]Ua. Mikaela Caldwell URIC ACID SERUMon 08-12-2022 Urate [Mass/Vol] 3.8 mg/dL Normal 2.6-6.0 [facility] Comment on above: Performed By: #### C A, K, CL, BUN, URIC, CO2, CREA, NA ####[facility] [address] [place], [place] [address]Nu. Mikaela Caldwell Formson 07-24-2022 Forms [id number]:127 Normal [facility] Patient Educationon 07-23-19 23 Patient Education [...] these instructions at home: Medicines ? Take jscs-ldq-lqclofm and prescription medicines only as told by [...] 09/30/2008 Document Revised: 08/31/2019 Document Reviewed: 08/31/2019 [employer] Patient Education ? 2019 [employer] [facility]-2022 [facility] [id number]:127 Normal [facility] Urology Office/Clinic Noteon 07-22-2022 Urology Office/Clinic [...] metabolic work-up. Follow-up With When Contact Information COOK MD, Jordi Mckeon, ISAÍAS In 6 months 01/22/[address] [place] [id number]- Additional Instructions: KUB Patient Education Kidney Stones, Rhny-ix-Lyah I, Charisma Husain , personally scribed for Dr. Mast on [...] Protein Urine Dipstick: Negative (07/22/22 09:47:00) Specific Camino Urine Dipstick: <=1.005 (07/22/22 09:47:00) Urine Appearance Urine Dipstick: Clear (07/22/22 09:47:00) Urine Color Urine Dipstick: Light yellow (07/22/22 09:47:00) Urobilinogen Urine Dipstick: Normal 0.2-1 EU/dl (07/22/22 09:47:00) pH Urine Dipstick: 5.5 (07/22/22 09:47:00) Diagnostic (more content not included)... Normal [facility] Comment on above: Result Comment: Elec tronically Signed By: Jordi MAST MD\.br\Date and Time Signed: 07/22/22 10:29 EDT\.br\Electronically Co-Signed [...] IMPRESSION: 1. Bilateral nephrolithiasis. Electronically authenticated by: ZENAIDA ENGLISH Date: 2022-07-18 09:03 Normal [facility] Provider Letteron 05-31-2022 Provider Letter May 31, 2022 KAROL PLASCENCIA [address] [place] [address] KAROL PLASCENCIA 1970 Dear Karol, We have [...] prompt attention to this matter. Please call [phone] Sincerely, [facility] [address] [address] x 1 Normal [facility] US THYROIDon 05-15-2022 US THYROID [...] IMPRESSION: Bilateral stable thyroid nodules TI-RADS: The [employer] TI-RADS committee's white paper recommendations for thyroid lesions classified as TR4 (moderately suspicious) are listed below: > 1.0 cm. Follow-up ultrasound in 1, 2, 3, and 5 years. > 1.5 cm. FNA. J. Am Ellen Radiol 2017;14:587-595. Electronically authenticated by: KODY GARRISON Date: 2022-05-15 11:41 Normal [facility] MG MAMM SCREEN 3D ANN-MARIE CADon 03-27-2022 MG MAMM SCREEN 3D ANN-MARIE CAD Patient: KAORL PLASCENCIA Exam Date: 03/27/2022 : 1970 Gender:F Ordering : DR SUE WIN . Admission #: [id number] Family : Order #: [id number] CLICK HERE TO VIEW EXAM RADIOLOGY REPORT [...] prostate cancer at age 67. LOCATION: [facility] BREAST COMPOSITION: Heterogeneously dense,which may obscure small [...] PALPABLE LUMP SHOULD BE BIOPSIED. Dictated by: Zenaida English M.D. on 03/27/2022 at 15:30 Approved by: Zenaida English M.D. on 03/27/2022 at 15:33 Normal [facility] Ammonium urate crystals dete ction in stone by infrared spectroscopyOrdered By: Jordi Mast on 12-21-2021 Ammonium urate crystals Infrared spectroscopy Ql (Stone) N/A [facility] Calcium bilirubinate measure mentOrdered By: Jordi Mast on 12-21-2021 Calcium bilirubinate (Stone) [Mass fraction] N/A [facility] Calcium carbonate measuremen tOrdered By: Jordi Mast on 12-21-2021 Calcium carbonate (Stone) [Mass fraction] N/A [facility] Calcium hydrogen phosphate d ihydrate/Total in StoneOrdered By: Jordi Mast on 12-21-2021 Calcium hydrogen phosphate dihydrate (Stone) [Mass fraction] N/A [facility] Calcium oxalate dihydrate cr ystals detection in stone by infrared spectroscopyOrdered By: Jordi Mast on 12-21-2021 Calcium oxalate dihydrate crystals Infrared spectroscopy Ql (Stone) 20 % . [facility] Calcium oxalate monohydrate/ Total in StoneOrdered By: Jordi Mast on 12-21-2021 Calcium oxalate monohydrate (Stone) [Mass fraction] 80 % . [facility] Calcium phosphate measuremen tOrdered By: Jordi Mast on 12-21-2021 Calcium phosphate (Stone) [Mass fraction] N/A [facility] Calculus analysis interpreta tion in stoneOrdered By: Jordi Mast on 12-21-2021 Calculus analysis [Interp] N/A [facility] Calculus analysis [Interp] See comment . [facility] Comment on above: Calculus received in liquid. Wet calculi must be dried before analysis, which delays reporting of results. Leaving calculi in liquid (such as water, saline, blood, urine) may lead to changes in composition. Physician questions regarding Calculi Analysis contact [employer] at: [phone]. Calculi report will follow via computer, mail or preventive maintenance coordinator delivery. Calculus analysis with calcu guera photography interpretation in stoneOrdered By: Jordi Mast on 12-21-2021 Calculus analysis with calculus photography [Interp] See comment . [facility] Comment on above: Photograph will foll ow under a separate cover Cellular material measuremen t in stone by estimated (mass/mass)Ordered By: Jordi Mast on 12-21-2021 Cellular material Est (Stone) [Mass/Mass] N/A [facility] Cholesterol/Total in StoneOr dered By: Jordi Mast on 12-21-2021 Cholesterol (Stone) [Mass fraction] N/A [facility] Composition of stoneOrdered By: Jordi Mast on 12-21-2021 Composition Nom (Stone) See comment . [facility] Comment on above: Percentage (Represen ts the % composition) Cystine measurementOrdered B y: Jordi Mast on 12-21-2021 Cystine (Unsp spec) [Moles/Vol] N/A [facility] Determination of color of ca lculusOrdered By: Jordi Mast on 12-21-2021 Color (Stone) Brown . [facility] Hydroxyapatite [Energy Diffe rence] in 24 hour UrineOrdered By: Jordi Msat on 12-21-2021 Hydroxyapatite (24H U) [Energy diff] N/A [facility] Measurement of proportion of calculus composed of dried blood (mass/mass)Ordered By: Jordi Mast on 12-21-2021 Blood.dried (Stone) [Mass fraction] N/A [facility] Newberyite/Total in StoneOrd ered By: Jordi Mast on 12-21-2021 Newberyite (Stone) [Mass fraction] N/A [facility] No Panel InformationOrdered By: Jordi Mast on 12-21-2021 Stone 2,8 Dihydroxyadenine N/A [facility] Stone Analysis Disclaimer See comment . [facility] Comment on above: This test was develo ped and its performance characteristics determined by [employer]. It has not been cleared or approved by the Food and Drug Administration. Performed at: [facility] Stone Analysis [address] [place] [address] [place] [id number] Interactive Project Manager: Jayson Santos PhD, Phone: [phone] Stone Bilirubinate N/A [facility] Stone Calcium Palmitate N/A [facility] Stone Calcium Stearate N/A [facility] Stone Carbonate Apatite N/A [facility] Stone Drug or Metabolite N/A [facility] Stone Other Constituent N/A [facility] Stone Xanthine N/A [facility] Size [Entitic volume] of Sto neOrdered By: Jordi Mast on 12-21-2021 Size (Stone) [Entitic vol] 5x3 mm . [facility] Comment on above: Multiple pieces rece ived. Dimensions of the largest piece reported. Sodium urate crystals detect ion in stone by infrared spectroscopyOrdered By: Jordi Mast on 12-21-2021 Sodium urate crystals Infrared spectroscopy Ql (Stone) N/A [facility] Specimen source subject [Typ e]Ordered By: Jordi Mast on 12-21-2021 Specimen source subject Nom See comment . [facility] Comment on above: Left Ureter Triamterene measurement in c alculusOrdered By: Jordi Mast on 12-21-2021 Triamterene (Stone) [Mass fraction] N/A [facility] Triple phosphate/Total in St oneOrdered By: Jordi Mast on 12-21-2021 Triple phosphate (Stone) [Mass fraction] N/A [facility] Uric acid dihydrate crystals detection in stone by infrared spectroscopyOrdered By: Jordi Mast on 12-21-2021 Urate dihydrate crystals Infrared spectroscopy Ql (Stone) N/A [facility] COVID-19 Positive/NegativeOr dered By: Jordi Mast on 12-19-2021 SARS-CoV-2 (COVID-19) N gene ISABELLA+probe Ql (Resp) Negative Negative [facility] Comment on above: Testing for SARS-CoV -2 by RT-PCR This test was developed and its performance characteristics determined by [employer] and validated at the [facility]. This test has not been FDA cleared [...] platelet poor plasma by coagulation aOrdered By: Jordi Mast on 12-13-2021 aPTT Coag (PPP) [Time] 40.1 s 25.1-36.[address] [facility] Basophils Auto (Bld) [#/Vol] Ordered By: Jordi Mast on 12-13-2021 Basophils (Bld) [#/Vol] 0.1 10*3/uL 0.0-0.2 [facility] Basophils/100 WBC Auto (Bld) Ordered By: Jordi Mast on 12-13-2021 Basophils/100 WBC (Bld) 0.8 % . [facility] Blood hemoglobin measurement (mass/volume)Ordered By: Jordi Mast on 12-13-2021 Hemoglobin (Bld) [Mass/Vol] 12.8 g/dL 11.8-15.4 [facility] Blood leukocytes automated c ount (number/volume)Ordered By: Jordi Mast on 12-13-2021 WBC (Bld) [#/Vol] 6.9 10*3/uL 4.5-11.0 [facility] Creatinine and Glomerular fi ltration rate.predicted panel (S/P/Bld)Ordered By: Jordi Mast on 12-13-2021 Creatinine [Mass/Vol] 0.76 mg/dL 0.44-1.03 [facility] Eosinophils Auto (Bld) [#/Vo l]Ordered By: Jordi Mast on 12-13-2021 Eosinophils (Bld) [#/Vol] 0.3 10*3/uL 0.0-0.45 [facility] Eosinophils/100 WBC Auto (Bl d)Ordered By: Jordi Mast on 12-13-2021 Eosinophils/100 WBC (Bld) 4.9 % . [facility] Erythrocyte distribution wid th Auto (RBC) [Ratio]Ordered By: Jordi Mast on 12-13-2021 Erythrocyte distribution width (RBC) [Ratio] 14.0 % 11.9-15.3 [facility] Estimated glomerular filtrat ion rate (GFR) non- AmericanOrdered By: Jordi Mast on 12-13-2021 GFR/1.73 sq M.predicted among non-blacks MDRD (S/P/Bld) [Vol rate/Area] > 60 mL/Min [facility] Hematocrit Auto (Bld) [Volum e fraction]Ordered By: Jordi Mast on 12-13-2021 Hematocrit (Bld) [Volume fraction] 39.2 % 34.0-46.4 [facility] Laboratory - CoagulationOrde red By: Jordi Mast on 12-13-2021 PT Coag (PPP) [Time] 11.9 s 9.0-12.9 [facility] Laboratory - Hematology and Cell countsOrdered By: Jordi Mast on 12-13-2021 Nucleated RBC/100 WBC (Bld) [Ratio] 0.1 % 0-0.5 [facility] Lymphocytes Auto (Bld) [#/Vo l]Ordered By: Jordi Mast on 12-13-2021 Lymphocytes (Bld) [#/Vol] 2.0 10*3/uL 1.00-4.8 [facility] Lymphocytes/100 WBC Auto (Bl d)Ordered By: Jordi Mast on 12-13-2021 Lymphocytes/100 WBC (Bld) 28.9 % . [facility] MCH Auto (RBC) [Entitic mass ]Ordered By: Jordi Mast on 12-13-2021 MCH (RBC) [Entitic mass] 28.8 pg 24.7-34.3 [facility] MCHC Auto (RBC) [Mass/Vol]Or dered By: Jordi Mast on 12-13-2021 MCHC (RBC) [Mass/Vol] 32.6 g/dL 32.0-35.0 [facility] MCV Auto (RBC) [Entitic vol] Ordered By: Jordi Mast on 12-13-2021 MCV (RBC) [Entitic vol] 88.1 fL 80-100 [facility] Monocytes Auto (Bld) [#/Vol] Ordered By: Jordi Mast on 12-13-2021 Monocytes (Bld) [#/Vol] 0.4 10*3/uL 0.0-0.8 [facility] Monocytes/100 WBC Auto (Bld) Ordered By: Jordi Mast on 12-13-2021 Monocytes/100 WBC (Bld) 6.5 % . [facility] Neutrophils Auto (Bld) [#/Vo l]Ordered By: Jordi Mast on 12-13-2021 Neutrophils (Bld) [#/Vol] 4.1 10*3/uL 1.8-7.7 [facility] Neutrophils/100 WBC Auto (Bl d)Ordered By: Jordi Mast on 12-13-2021 Neutrophils/100 WBC (Bld) 58.9 % . [facility] No Panel InformationOrdered By: Jordi Mast on 12-13-2021 Estimated GFR () > 60 mL/Min [facility] Comment on above: GFR estimated refere nce range: According to KDOQI guidelines, <60 ml/min/1.73m2 is sufficient to diagnose a patient with chronic kidney disease. Pharmacy Creatinine Clearance (Chem N/A [facility] Platelet mean volume Auto (B ld) [Entitic vol]Ordered By: Jordi Mast on 12-13-2021 Platelet mean volume (Bld) [Entitic vol] 7.5 fL 6.3-10.7 [facility] Platelet poor plasma interna tional normalized ratio (INR) by coagulation assay (relatOrdered By: Jordi Mast on 12-13-2021 INR Coag (PPP) [Relative time] 1.1 {INR} [facility] Comment on above: INR Therapeutic Rang e [...] 4.5 Platelets Auto (Bld) [#/Vol] Ordered By: Jordi Mast on 12-13-2021 Platelets (Bld) [#/Vol] 345 10*3/uL 150-450 [facility] RBC Auto (Bld) [#/Vol]Ordere d By: Jordi Mast on 12-13-2021 RBC (Bld) [#/Vol] 4.45 10*6/uL 3.60-5.00 [facility] Serum or plasma calcium cielo urement (mass/volume)Ordered By: Jordi Mast on 12-13-2021 Calcium [Mass/Vol] 9.2 mg/dL 8.2-10.2 [facility] Serum or plasma chloride ankita surement (moles/volume)Ordered By: Jordi Mast on 12-13-2021 Chloride [Moles/Vol] 102 mmol/L 95-114 [facility] Serum or plasma glucose cielo urement (mass/volume)Ordered By: Jordi Mast on 12-13-2021 Glucose [Mass/Vol] 90 mg/dL 70-100 [facility] Comment on above: ADA recommended refe rence range Random Glucose Reference Range is dependent on time and content of last meal. Glucose of more than 200 mg/dL in a nonstressed, ambulatory subject supports the diagnosis of Diabetes Mellitus. Serum or plasma potassium me asurement (moles/volume)Ordered By: Jordi Mast on 12-13-2021 Potassium [Moles/Vol] 3.6 mmol/L 3.5-5.1 [facility] Serum or plasma sodium measu rement (moles/volume)Ordered By: Jordi Mast on 12-13-2021 Sodium [Moles/Vol] 139 mmol/L 136-146 [facility] Serum or plasma total carbon dioxide measurement (moles/volume)Ordered By: Jordi Mast on 12-13-2021 CO2 [Moles/Vol] 27.4 mmol/L 22.0-30.0 [facility] Serum or plasma urea nitroge n measurement (mass/volume)Ordered By: Jordi Mast on 12-13-2021 Urea nitrogen [Mass/Vol] 13 mg/dL 9- [facility] MRI KNEE RT WO CONon 022 MRI [...] chondromalacia of the patella. Electronically authenticated by: ZENAIDA ENGLISH Date: 2021-12-12 17:04 [facility] XR KUB 1 VIEWon 12-10-2021 XR KUB [...] suspected proximal ureteral stone. Electronically authenticated by: ZENAIDA ENGLISH Date: 2021-12-10 07:56 [facility] COVID-19 SOFIAOrdered By: Jeison Mast on 11-27-2021 SARS-CoV+SARS-CoV-2 (COVID-19) Ag IA.rapid Ql (Resp) Negative Negative [facility] Comment on above: This is a duplicate Mony SARS Antigen (MILES) result to be used for statistical tracking purpose only. No Panel InformationOrdered By: Jordi Mast on 11-27-2021 SARS Antigen (LFIA) [facility] XR KUB 1 VIEWon 11-20-2021 XR KUB [...] obscured by bowel content. Electronically authenticated by: ZENAIDA ENGLISH Date: 2021-11-20 18:35 [facility] CULTURE URINEon 11-15-2021 CULTURE URINE Isolate 1 [...] F Trimethoprim/Sulfam ethoxazole <=20 S F Normal [facility] Comment on above: Performed By: #### C VDTB #### [facility] [address] [place] [address] Dr. Mikaela Caldwell CARDIAC EDGARDO 3-6on 2 CK [Catalytic activity/Vol] 54 U/L Normal 26-192 [facility] Comment on above: Performed By: #### C VDTBH #### [facility] [address] [place] [address] Dr. Mikaela Caldwell CK.MB [Mass/Vol] 2.05 ng/mL Normal <=3.[address] [facility] Comment on above: Performed By: #### C VDTBH #### [facility] [address] [address] [address] Mikaela Caldwell HSTROP 6.5 pg/mL Normal 4.0-51.3 [facility] Comment on above: Result Comment: CUT- OFF POINTS HAVE BEEN ESTABLISHED BASED ON THE FOURTH UNIVERSAL DEFINITIONS OF MYOCARDIAL INFARCTION. THE UPPER REFERENCE LIMIT (URL) OF TROPONIN, DEFINED THE 99TH PERCENTILE OF cTnI DISTRIBUTION IN A REFERENCE POPULATION, HAS BEEN CONFIRMED THE DECISION THRESHOLD FOR NC DIAGNOSIS. Performed By: #### C VDTBH #### [facility] [address] [place] [address] Dr. Mikaela Caldwell CK [Catalytic activity/Vol] 63 U/L Normal 26-192 [facility] Comment on above: Performed By: #### C MREP #### [facility] [address] [place] [address] Dr. Mikaela Caldwell CK.MB [Mass/Vol] 2.28 ng/mL Normal <=3.[address] [facility] Comment on above: Performed By: #### C MREP #### [facility] [address] [place] [address] Dr. Mikaela Caldwell HSTROP 5.1 pg/mL Normal 4.0-51.3 [facility] Comment on above: Result Comment: CUT- OFF POINTS HAVE BEEN ESTABLISHED BASED ON THE FOURTH UNIVERSAL DEFINITIONS OF MYOCARDIAL INFARCTION. THE UPPER REFERENCE LIMIT (URL) OF TROPONIN, DEFINED THE 99TH PERCENTILE OF cTnI DISTRIBUTION IN A REFERENCE POPULATION, HAS BEEN CONFIRMED THE DECISION THRESHOLD FOR NC DIAGNOSIS. Performed By: #### C MREP #### [facility] [address] [place] [address] Dr. Mikaela Caldwell CARDIAC EDGARDO ADMITon 022 CK [Catalytic activity/Vol] 77 U/L Normal 26-192 [facility] Comment on above: Performed By: #### C MADM, LIPA, CMP #### [facility] [address] [address] [address] Mikaela Caldwell CK.MB [Mass/Vol] 2.40 ng/mL Normal <=3.[address] [facility] Comment on above: Performed By: #### C MADM, LIPA, CMP #### [facility] [address] [address] [address] Mikaela Caldwell HSTROP 5.8 pg/mL Normal 4.0-51.3 [facility] Comment on above: Result Comment: CUT- OFF POINTS HAVE BEEN ESTABLISHED BASED ON THE FOURTH UNIVERSAL DEFINITIONS OF MYOCARDIAL INFARCTION. THE UPPER REFERENCE LIMIT (URL) OF TROPONIN, DEFINED THE 99TH PERCENTILE OF cTnI DISTRIBUTION IN A REFERENCE POPULATION, HAS BEEN CONFIRMED THE DECISION THRESHOLD FOR NC DIAGNOSIS. Performed By: #### C MADM, LIPA, CMP #### [facility] [address] [place] [address] Dr. Mikaela Caldwell JOYCE 29 ng/mL Normal 9-82 [facility] Comment on above: Performed By: #### C MADM, LIPA, CMP #### [facility] [address] [place] [address] Dr. Mikaela Caldwell CBC AUTO DIFFon 11-13-2021 BASO # 0.1 103/ul Normal 0.0-0.1 [facility] Comment on above: Performed By: #### C BC #### [facility] [address] [address] [address] Mikaela Caldwell Basophils/100 WBC (Bld) 0.5 % Normal 0.2-2.0 [facility] Comment on above: Performed By: #### C BC #### [facility] [address] [address] [address] Mikaela Caldwell EO # 0.3 103/ul Normal 0.0-0.7 [facility] Comment on above: Performed By: #### C BC #### [facility] [address] [address] [address] Mikaela Caldwell Eosinophils/100 WBC (Bld) 2.1 % Normal 0.9-7.0 [facility] Comment on above: Performed By: #### C BC #### [facility] [address] [place] [address] Dr. Mikaela Caldwell Erythrocyte distribution width (RBC) [Ratio] 13.2 % Normal 11.0-15.0 [facility] Comment on above: Performed By: #### C BC #### [facility] [address] [place] [address] Dr. Mikaela Caldwell Hematocrit (Bld) [Volume fraction] 40.9 % Normal 36.0-48.0 [facility] Comment on above: Performed By: #### C BC #### [facility] [address] [place] [address] Dr. Mikaela Caldwell Hemoglobin (Bld) [Mass/Vol] 13.1 g/dL Normal 12.0-16.0 [facility] Comment on above: Performed By: #### C BC #### [facility] [address] [place] [address] Dr. Mikaela Caldwell IG # 0.07 10e3/ul Critically high 0.00-0.03 [facility] Comment on above: Performed By: #### C BC #### [facility] [address] [place] [address] Dr. Mikaela Caldwell IG % 0.5 % Normal 0.0-0.5 [facility] Comment on above: Performed By: #### C BC #### [facility] [address] [place] [address] Dr. Mikaela Caldwell LYMPH # 1.8 103/ul Normal 1.2-3.8 [facility] Comment on above: Performed By: #### C BC #### [facility] [address] [place] [address] Dr. Mikaela Caldwell Lymphocytes/100 WBC (Bld) 12.5 % Critically low 20.5-60.0 [facility] Comment on above: Performed By: #### C BC #### [facility] [address] [place] [address] Dr. Mikaela Caldwell MANUAL DIFF REQ NO Normal [facility] Comment on above: Performed By: #### C BC #### [facility] [address] [place] [address] Dr. Mikaela Caldwell MCH (RBC) [Entitic mass] 29.2 pg Normal 26.7-34.0 [facility] Comment on above: Performed By: #### C BC #### [facility] [address] [address] [address] Mikaela Caldwell MCHC (RBC) [Mass/Vol] 32.0 g/dL Normal 29.9-35.2 [facility] Comment on above: Performed By: #### C BC #### [facility] [address] [address] [address] Mikaela Caldwell MCV (RBC) [Entitic vol] 91.1 fL Normal 81.0-99.0 [facility] Comment on above: Performed By: #### C BC #### [facility] [address] [place] [address] Dr. Mikaela Caldwell MONO # 0.7 103/ul Normal 0.3-0.8 [facility] Comment on above: Performed By: #### C BC #### [facility] [address] [place] [address] Dr. Mikaela Caldwell Monocytes/100 WBC (Bld) 5.1 % Normal 1.7-12.0 [facility] Comment on above: Performed By: #### C BC #### [facility] [address] [place] [address] Dr. Mikaela Caldwell NEUT # 11.1 103/ul Critically high 1.4-6.5 [facility] Comment on above: Performed By: #### C BC #### [facility] [address] [place] [address] Dr. Mikaela Caldwell Neutrophils/100 WBC (Bld) 79.3 % Critically high 43.0-75.0 [facility] Comment on above: Performed By: #### C BC #### [facility] [address] [place] [address] Dr. Mikaela Caldwell Platelet mean volume (Bld) [Entitic vol] 9.2 fL Critically low 9.5-13.5 [facility] Comment on above: Performed By: #### C BC #### [facility] [address] [place] [address] Dr. Mikaela Caldwell PLT 420 103/ul Normal 150-450 [facility] Comment on above: Performed By: #### C BC #### [facility] [address], [place] [address] Dr. Mikaela Caldwell RBC 4.49 106/ul Normal 4.20-5.40 [facility] Comment on above: Performed By: #### C BC #### [facility] [address], [place] [address] Dr. Mikaela Caldwell WBC 14.0 103/ul Critically high 4.0-11.[address] [facility] Comment on above: Performed By: #### C BC #### [facility] [address], [place] [address] ABD/PELVIS WO CONon [...] GEORGE SAID Date: 2021-11-13 02:57 Normal [facility]26 SARS-CoV-2 (COVID-19) RNA ISABELLA+probe Ql (Unsp spec) Not detected Normal NOT DETECTED [facility] Comment on above: Result Comment: When diagnostic [...] for this test is supported by the [employer] Chief of Health and Human Service's declaration that [...] used). Performed By: #### C VDTB #### [facility] [address] [place] [address] Dr. Mikaela Caldwell ER URINE PROFILEon 2 Bilirubin Ql (U) Negative Normal NEGATIVE [facility] Comment on above: Performed By: #### AUBREE ROGERS #### [facility] [address] [place] [address] Dr. Mikaela Caldwell Clarity (U) CLEAR Normal CLEAR [facility] Comment on above: Performed By: #### KENDELL ROGERSRO #### [facility] [address] [place] [address] Dr. Mikaela Caldwell Color (U) LT. YELLOW Normal YELLOW [facility] Comment on above: Performed By: #### KENDELL ROGERSRO #### [facility] [address] [place] [address] Dr. Mikaela MCMANUS A micrscopic examination will be performed if indicated. Normal [facility] Comment on above: Performed By: #### Jimy ROSAS UMICRO #### [facility] [address] [place] [address] Dr. Mikaela Caldwell Glucose Ql (U) Negative Normal NEGATIVE [facility] Comment on above: Performed By: #### Jimy ROSAS UMICRO #### [facility] [address] [place] [address] Dr. Mikaela Caldwell Hemoglobin Ql (U) TRACE-INTACT Abnormal NEGATIVE [facility] Comment on above: Performed By: #### Jimy ROSAS UMICRO #### [facility] [address] [place] [address] Dr. Mikaela Caldwell Ketones Ql (U) Negative Normal NEGATIVE [facility] Comment on above: Performed By: #### Jimy ROSAS UMICRO #### [facility] [address] [place] [address] Dr. Mikaela Caldwell LEUKOCYTES TRACE Abnormal NEGATIVE [facility] Comment on above: Performed By: #### Jimy ROSAS UMICRO #### [facility] [address] [place] [address] Dr. Mikaela Caldwell Nitrite Ql (U) Positive Abnormal NEGATIVE [facility] Comment on above: Performed By: #### Jimy ROSAS UMICRO #### [facility] [address] [place] [address] Dr. Mikaela Caldwell pH (U) 6.5 [pH] Normal 5-9 [facility] Comment on above: Performed By: #### Jimy ROSAS UMICRO #### [facility] [address] [place] [address] Dr. Mikaela Caldwell SPEC GRAVITY 1.020 Normal 1.005-<=1.025 The [facility] Comment on above: Performed By: #### Jimy ROSAS UMICRO #### [facility] [address] [place] [address] Dr. Mikaela Caldwell UA PROTEIN Negative Normal NEGATIVE/ TRACE [facility] Comment on above: Performed By: #### Jimy ROSAS UMICRO #### [facility] [address] [place] [address] Dr. Mikaela Caldwell UR MICRO IND INDICATED Normal [facility] Comment on above: Performed By: #### Jimy ROSAS UMICRO #### [facility] [address] [place] [address] Dr. Mikaela Caldwell Urobilinogen Qn (U) 0.2 {Lisa'U}/dL Normal 0.2 - 1. 0 [facility] Comment on above: Performed By: #### E AUBREE ROSAS #### [facility] [address] [address] [address] Mikaela Caldwell LACTATE/LACTIC ACIDon 2021 Lactate [Moles/Vol] 1.2 mmol/L Normal 0.4-1.9 [facility] Comment on above: Performed By: #### L ACT ####[facility] [address] [address]Dr. Mikaela Caldwell LIPASEon 11-13-2021 Lipase [Catalytic activity/Vol] 97.0 U/L Normal 73.0-393.0 [facility] Comment on above: Performed By: #### C MADM LIPA, CMP #### [facility] [address] [address] [address] Mikaela Caldwell PROF 14(COMP METB)on 022 Albumin [Mass/Vol] 3.5 g/dL Normal 3.4-5.0 [facility] Comment on above: Performed By: #### C CANDELARIAM LIPA, CMP #### [facility] [address] [address] [address] Mikaela Caldwell Albumin/Globulin [Mass ratio] 0.9 {ratio} Normal [facility] Comment on above: Performed By: #### C MADM, LIPA, CMP #### [facility] [address] [address] [address] Mikaela Caldwell ALP [Catalytic activity/Vol] 161 U/L Critically high 46-116 [facility] Comment on above: Performed By: #### C MADM, LIPA, CMP #### [facility] [address] [address] [address] Mikaela Caldwell ALT [Catalytic activity/Vol] 30 U/L Normal 14-59 [facility] Comment on above: Performed By: #### C MADM, LIPA, CMP #### [facility] [address] [address] [address] Mikaela Caldwell Anion gap [Moles/Vol] 10.4 mmol/L Normal Th [facility] Comment on above: Performed By: #### C MADM, LIPA, CMP #### [facility] [address] [address] [address] Mikaela Caldwell AST [Catalytic activity/Vol] 17 U/L Normal 15-37 [facility] Comment on above: Performed By: #### C MADM, LIPA, CMP #### [facility] [address] [address] [address] Mikaela Caldwell Bilirubin [Mass/Vol] 0.3 mg/dL Normal 0.2-1.0 [facility] Comment on above: Performed By: #### C MADM, LIPA, CMP #### [facility] [address] [address] [address] Mikaela Caldwell Calcium [Mass/Vol] 8.8 mg/dL Normal 8.5-10.1 [facility] Comment on above: Performed By: #### C MADM, LIPA, CMP #### [facility] [address] [address] [address] Mikaela Caldwell Chloride [Moles/Vol] 106 mmol/L Normal 98-107 [facility] Comment on above: Performed By: #### C MADM, LIPA, CMP #### [facility] [address] [address] [address] Mikaela Caldwell CO2 [Moles/Vol] 30.1 mmol/L Normal 21.0-32.0 [facility] Comment on above: Performed By: #### C MADM, LIPA, CMP #### [facility] [address] [address] [address] Mikaela Caldwell Creatinine [Mass/Vol] 1.02 mg/dL Normal 0.55-1.02 [facility] Comment on above: Performed By: #### C MADM, LIPA, CMP #### [facility] [address] [address] [address] Mikaela Caldwell EGFR-AF MARTINIQUAIS >60 Normal >=60 [facility] Comment on above: Performed By: #### C MADM, LIPA, CMP #### [facility] [address] [address] [address] Mikaela Caldwell EGFR-NON AF MARTINIQUAIS 57 mL/min/1.73m2 Critically low >=60 [facility] Comment on above: Performed By: #### C MADM, LIPA, CMP #### [facility] [address] [address] [address] Mikaela Caldwell Globulin (S) [Mass/Vol] 4.0 g/dL Normal [facility] Comment on above: Performed By: #### C MADMarii LIPA, CMP #### [facility] [address] [place] [address] Dr. Mikaela Caldwell Glucose [Mass/Vol] 113 mg/dL Critically high 74-106 [facility] Comment on above: Performed By: #### C ANIL LIPA, CMP #### [facility] [address] [place] [address] Dr. Mikaela Caldwell Potassium [Moles/Vol] 3.5 mmol/L Normal 3.5-5.1 [facility] Comment on above: Performed By: #### C ANIL LIPA, CMP #### [facility] [address] [address] [address] Mikaela Caldwell Protein [Mass/Vol] 7.5 g/dL Normal 6.4-8.2 [facility] Comment on above: Performed By: #### C MADM, LIPA, CMP #### [facility] [address] [place] [address] Dr. Mikaela Caldwell Sodium [Moles/Vol] 143 mmol/L Normal 136-145 [facility] Comment on above: Performed By: #### C MADM, LIPA, CMP #### [facility] [address] [place] [address] Dr. Mikaela Caldwell Urea nitrogen [Mass/Vol] 18.0 mg/dL Normal 7.0-18.0 [facility] Comment on above: Performed By: #### C MADM, LIPA, CMP #### [facility] [address] [place] [address] Dr. Mikaela Caldwell Urea nitrogen/Creatinine [Mass ratio] 17.6 mg/mg Normal [facility] Comment on above: Performed By: #### C RONEN MA, CMP #### [facility] [address] [place] [address] Dr. Mikaela Caldwell URINE MICROSCOPIC ONLYon BACTERIA TRACE Abnormal NONE SEEN [facility] Comment on above: Performed By: #### Jimy ROSAS UMICRO #### [facility] [address] [place] [address] Dr. Mikaela Caldwell Bacteria identified Cx Nom (U) INDICATED Normal [facility] Comment on above: Performed By: #### Jimy ROSAS UMICRO #### [facility] [address] [place] [address] Dr. Mikaela Caldwell CAST NONE SEEN Normal NONE SEEN [facility] Comment on above: Performed By: #### Jimy ROSAS UMICRO #### [facility] [address] [place] [address] Dr. Mikaela Cladwell Crystals LM Nom (Urine sed) NONE SEEN Normal NONE SEEN [facility] Comment on above: Performed By: #### Jimy ROSAS UMICRO #### [facility] [address] [place] [address] Dr. Mikaela Caldwell Epithelial cells LM Ql (Urine sed) NONE SEEN Normal NONE SEEN /RARE [facility] Comment on above: Performed By: #### Jimy ROSAS UMICRO #### [facility] [address] [place] [address] Dr. Mikaela Caldwell MUCOUS NONE SEEN Normal NONE SEEN [facility] Comment on above: Performed By: #### Jimy ROSAS UMICRO #### [facility] [address] [place] [address] Dr. Mikaela Caldwell RBC 0-2 Normal 0-2 [facility] Comment on above: Performed By: #### Jimy ROSAS UMICRO #### [facility] [address] [place] [address] Dr. Mikaela Caldwell WBC 5-10 Abnormal NONE SEEN [facility] Comment on above: Performed By: #### E AUBREE ROSAS #### [facility] [address] [address] [address] Mikaela Caldwell XR CHEST 2 Von [...] by: GEORGE LLANES Date: 2021-11-13 02:46 Normal [facility] Vital Signs Date Time Vital Sign Value Performing Clinician Facility 12-19-2022 09:45-0400 Body height 165.1 cm Shubham Chase Other [facility] Other 12-19-2022 09:45-0400 Body mass index (BMI) [Ratio] 39.27 kg/m2 Shubham Rodrigues Other [facility] Other 12-19-2022 09:45-0400 Body weight 107.05 kg Shubham Rodrigues Other [facility] Other 07-22-2022 09:50-0400 Blood Pressure Location Jordi MAST [facility] 07-22-2022 09:50-0400 Diastolic blood pressure 81 mm[Hg] Jordi MAST [facility] 07-22-2022 09:50-0400 Heart rate 72 /min Jordi MAST [facility] 07-22-2022 09:50-0400 Respiratory rate 16 /min Jordi MAST [facility] 07-22-2022 09:50-0400 Systolic blood pressure 129 mm[Hg] Jordi MAST [facility] 12-21-2021 17:00-0400 Diastolic blood pressure 82 mm[Hg] MD Jordi Mast Work Phone: [facility] 12-21-2021 17:00-0400 Heart rate 79 /min MD Jordi Mast Work Phone: [facility] 12-21-2021 17:00-0400 Respiratory rate 16 /min MD Jordi Mast Work Phone: [facility] 12-21-2021 17:00-0400 SaO2% (BldA) [Mass fraction] 100 % MD Jordi Mast Work Phone: [facility] 12-21-2021 17:00-0400 Systolic blood pressure 118 mm[Hg] MD Jordi Mast Work Phone: [facility] 12-21-2021 15:35-0400 Body weight 118 mg MD Jordi Mast Work Phone: [facility] 12-21-2021 14:57-0400 Body height 165.1 cm MD Jordi Mast Work Phone: [facility] 12-21-2021 14:57-0400 Body mass index (BMI) [Ratio] 38.5 kg/m2 MD Jordi Mast Work Phone: [facility] 12-21-2021 14:57-0400 Body weight 105 kg MD Jordi Mast Work Phone: [facility] 12-21-2021 12:56-0400 Body temperature 98.4 [degF] MD Jordi Mast Work Phone: [facility] 11-29-2021 14:51-0400 Diastolic blood pressure 84 mm[Hg] MD Jordi Mast Work Phone: [facility] 11-29-2021 14:51-0400 Heart rate 80 /min MD Jordi Mast Work Phone: [facility] 11-29-2021 14:51-0400 Respiratory rate 16 /min MD Jordi Mast Work Phone: [facility] 11-29-2021 14:51-0400 SaO2% (BldA) [Mass fraction] 98 % MD Jordi Mast Work Phone: [facility] 11-29-2021 14:51-0400 Systolic blood pressure 117 mm[Hg] MD Jordi Mast Work Phone: [facility] 11-29-2021 12:45-0400 Body height 165.1 cm MD Jordi Mast Work Phone: [facility] 11-29-2021 12:45-0400 Body mass index (BMI) [Ratio] 37.4 kg/m2 MD Jordi Mast Work Phone: [facility] 11-29-2021 12:45-0400 Body weight 102.05 kg MD Jordi Mast Work Phone: [facility] 11-29-2021 12:24-0400 Body temperature 97.9 [degF] MD Jordi Mast Work Phone: [facility] Encounters Encounter Date Encounter Type Care Provider Facility Start: 02-02-2024 ambulatory Jordi MAST Facility :[facility] Start: 05-12-2023 End: 05-13-2023 ambulatory [facility] Start: 05-12-2023 Encounter for gynecological examination (general) (routine) without abnormal findings [facility] Start: 02-10-2023 End: 02-10-2023 ambulatory Shubham Rodrigues Other [facility] Other Start: 02-10-2023 Postop follow up vis it related to original px Shubham Rodrigues [facility] Start: 02-10-2023 Telephone encounter Shubham Olexa [facility] Start: 01-27-2023 End: 01-28-2023 ambulatory Jordi MAST Facility:[facility] Start: 01-07-2023 End: 01-07-2023 ambulatory Shubham Olexa Other [facility] Other Start: 01-07-2023 Postop follow up vis it related to original px Shubham Olexa [facility] Start: 01-01-2023 End: 01-01-2023 ambulatory Sue Win Facility:[facility] Start: 12-31-2022 End: 12-31-2022 ambulatory Shubham Olexa Other [facility] Other Start: 12-31-2022 Telephone encounter Shubham Bullockxa [facility] Start: 12-25-2022 End: 12-25-2022 ambulatory Sue Win Facility:[facility] Start: 12-25-2022 End: 12-25-2022 ambulatory MD Sue Win Work Phone: [facility] Work Phone: Start: 12-25-2022 End: 12-25-2022 Patient encounter procedure MD Sue Win Work Phone: [facility] Work Phone: Start: 12-19-2022 End: 12-19-2022 ambulatory Shubham Olexa Other [facility] Other Start: 12-19-2022 Office outpatient vi sit 25 minutes Shubham Olexa [facility] Start: 11-25-2022 End: 11-25-2022 ambulatory Shubham Olexa Other [facility] Other Start: 11-25-2022 Office outpatient ne w 45 minutes Shubham Olexa [facility] Start: 08-12-2022 End: 08-13-[address] JORDI MAST Facility: Start: 07-22-2022 End: 07-23-2022 ambulatory Jordi MAST Facility:[facility] Start: 07-22-2022 End: 07-22-2022 Patient encounter procedure Jordi MAST [facility] Start: 07-18-2022 End: 07-19-[address] JODRI MAST Facility:[facility] Start: 05-15-2022 End: 05-16-[address] HARVEY BURCH Facility:[facility] Start: 03-27-2022 End: 03-28-[address] SUE WIN . Facility:[facility] Start: 12-21-2021 End: 12-21-2021 Admission to same day surgery center MD Jordi Mast Work Phone: [facility] Start: 12-19-2021 End: 12-19-2021 Patient encounter procedure MD Jordi Mast Work Phone: [facility] Start: 12-13-2021 End: 12-13-2021 Patient encounter procedure MD Jordi Mast Work Phone: [facility] Start: 12-12-2021 End: 12-13-[address] SUE WIN . Facility:[facility] Start: 12-10-2021 End: 12-11-[address] JORDI MAST Facility:[facility] Start: 11-29-2021 End: 11-29-2021 Admission to same day surgery center MD Jordi Mast Work Phone: [facility] Start: 11-27-2021 End: 11-27-2021 Patient encounter procedure MD Jordi Mast Work Phone: [facility] Start: 11-21-2021 End: 11-21-2021 Patient encounter procedure Jordi MAST [facility] Start: 11-20-2021 End: 11-21-[address] JORDI MAST Facility:[facility] Start: 11-13-2021 End: 11-13-[address] SUE WIN . Facility:[facility] Start: 10-03-2021 End: 10-04-[address] SUE WIN . Facility:[facility] Start: 03-05-2021 End: 03-05-2021 Patient encounter procedure Sue Win MD Work Phone: [facility] Start: 03-05-2021 End: 03-05-2021 Subsequent hospital visit by physician Sue Win MD Work Phone: [facility] Comment on above: Vaginal discharge; Women's annual routine gynecological examination Start: 02-25-2019 End: 02-25-2019 Subsequent hospital visit by physician [facility] Comment on above: Women's annual routi ne gynecological examination Procedures Date Procedure Procedure Detail Performing Clinician Start: 12-21-2021 Cystoscopy MD Jordi Mast Work Phone: Start: 12-21-2021 Diagnostic radiograp hy of abdomen MD Jordi Mast Work Phone: Start: 12-21-2021 Diagnostic radiograp hy of abdomen MD Jordi Mast Work Phone: Start: 12-21-2021 Extracorporeal shock wave lithotripsy of calculus of kidney Jordi MAST Start: 11-29-2021 Extracorporeal shock wave lithotripsy of calculus of kidney MD Jordi Mast Work Phone: Start: 11-29-2021 Diagnostic radiograp hy of abdomen MD Jordi Mast Work Phone: Start: 11-29-2021 Cystoscopic insertio n of ureteric stent Jordi MAST Start: 11-13-2021 Cystoscope, device (physical object) Jordi MAST Start: 02-25-2019 Microscopic observat ion [Identifier] in Cervix by Cyto stain Sue Win MD Work Phone: Start: 08-26-2018 Colonoscopy Jordi ISSA Diagnostic endoscopy Jordi MAST Dilation and curetta ge of uterus Jordi MANNIE SARS Antigen (LFIA) MD Alejandro wells Mannie Work Phone: Plan of Treatment Date Care Activity Detail Author Start: 03-20-2022 Screening for malign ant neoplasm of breast Breast cancer screen [facility] Start: 03-13-2022 End: 03-13-2022 Patient encounter procedure 03/13/2022 Office Visit Obstetrics and Gynecology Rosaura Yang MD [address] [place] [address] [place] [address] [facility] Start: 02-25-2022 Screening for malign ant neoplasm of cervix [facility] Start: 12-21-2021 End: 12-21-2021 [facility] Work Phone: Start: 12-21-2021 Cystoscopy OR Cysto/Retro/Stent/Stone /Holmium Laser (Left) [facility] Start: 12-21-2021 Diagnostic radiograp hy of abdomen XR [facility] Start: 12-21-2021 End: 12-21-2021 Admission to same day surgery center Departed Surgical Day Care [facility] Start: 12-21-2021 Diagnostic radiograp hy of abdomen XR [facility] Start: 12-19-2021 End: 12-19-2021 Patient encounter procedure Departed Clinical [facility] Start: 12-13-2021 End: 12-13-2021 Patient encounter procedure Departed Clinical [facility] Start: 11-29-2021 [facility] Work Phone: Start: 11-29-2021 [facility] Work Phone: Start: 02-23-2021 Cervical cancer screen Cervical canc er screen [facility] [place], [place] Start: 02-11-2021 COVID-19 Vaccine (3 - Pfizer booster) COVID-19 Vaccine (3 - Pfizer booster) [facility] Start: 02-28-2020 Breast cancer screen Breast cancer s creen [place], [place] Start: 03-27-2019 Influenza vaccination Flu vaccine (# 1) [place], [place] Comment on above: Postponed from 12/27 (Not Indicated) Start: 03-25-2019 Diabetes screen Diabetes screen [place], [place] Comment on above: Postponed from 07/08 (Not Indicated) Start: 03-25-2019 DTaP/Tdap/Td vaccine (1 - Tdap) DTaP/Tdap/Td vaccine (1 - Tdap) [place], [place] Comment on above: Postponed from 07/08 (Patient Refused) Start: 03-25-2019 HIV screen HIV screen [place], [place] Comment on above: Postponed from 07/08 (Patient Refused) Start: 03-25-2019 Lipid screen Lipid screen [place], [place] Comment on above: Postponed from 07/08 (Not Indicated) Start: 2018 Colon cancer screen colonoscopy Colon cancer screen colonoscopy [place], [place] Start: 2018 Shingles Vaccine (1 of 2) Shingles Vaccine (1 of 2) [facility] Start: 2013 Screening for malign ant neoplasm of colon Colon cancer screen colonoscopy [facility] Start: 2008 Diabetes screen Diabetes screen [facility] Start: 2008 Lipid panel Lipid screen [facility] Start: 1998 Screening for malign ant neoplasm of cervix HPV (without or with Pap) [facility] Start: 07-09-1987 DTaP/Tdap/Td vaccine (1 - Tdap) DTaP/Tdap/Td vaccine (1 - Tdap) [facility] Start: 07-09-1983 HIV screening HIV screen [facility] Start: 1968 Hepatitis C screening Hepatitis C sc reen [facility] End: 03-05-2021 Culture, Genital [facility] Work Phone: Comment on above: 1 Occurrences starti ng 03/05/2021 until 03/05/2021 End: 02-25-2019 Cytopathology procedure, preparation of smear, genital source PAP SMEAR Lab Routine Women's Annual Routine Gynecological Examination 1 Occurrences starting 02/25/2019 until 02/25/2019 [facility] [place], [place] Comment on above: 1 Occurrences starti ng 02/25/2019 until 02/25/2019 End: 03-05-2021 Cytopathology procedure, preparation of smear, genital source PAP SMEAR Lab Routine Women's annual routine gynecological examination 1 Occurrences starting 03/05/2021 until 03/05/2021 [facility] Work Phone: Comment on above: 1 Occurrences starti ng 03/05/2021 until 03/05/2021 Patient Education Cystoscopy (DC) [facility] Work Phone: Patient referral [facility] Work Phone: Immunizations Immunization Date Immunization Notes Care Provider Fa pancho 09-29-2021 COVID-19 mRNA-1273 (Moderna) MD Jordi Mast Work Phone: [facility] 02-08-2021 Influenza, injectabl e, [place]in [place] Canine Kidney, preservative free, quadrivalent Sue Win MD Work Phone: [facility] Work Phone: 08-12-2020 COVID-19 mRNA-1273 (Moderna) MD Jordi Mast Work Phone: [facility] 08-12-2020 COVID-19, Pfizer, PF , 30mcg/0.3mL Sue Win MD Work Phone: [facility] 07-17-2020 SARS-CoV-2 (COVID-19 ) mRNA-1273 vaccine Jordi MAST [facility] 07-15-2020 COVID-19 mRNA-1273 (Moderna) MD Jordi Mast Work Phone: [facility] 07-15-2020 COVID-19, Pfizer, PF , 30mcg/0.3mL Sue Win MD Work Phone: [facility] Work Phone: 05-03-2020 Influenza, injectabl e, Madin [place] Canine Kidney, preservative free, quadrivalent Sue Win MD Work Phone: [facility] Work Phone: 02-08-2020 pneumococcal conjuga te vaccine, 13 valent Sue Win MD Work Phone: [facility] Work Phone: Payers Date Payer Category Payer Self-pay 2019 Unknown [employer] [address] xxxxxxxx 2019-Present [phone] [address] [place] [address] xxxxxxxx [id number] 1968 Unknown [id number] 1968 Unknown [id number] [id number] 1968 Unknown [id number] .[id number] 1968 Unknown [id number] .[id number] 1968 Unknown [id number] .[id number] 1968 Unknown [id number] 2.16.840.1.082641.3.579.2.593 1968 Unknown [id number] 2.16.840.1.925611.3.579.2.593 1968 Unknown [id number] 2.16.840.1.179443.3.579.2.593 1968 Unknown [id number] 2.16.840.1.596828.3.579.2.593 1968 Unknown [id number] 2.16.840.1.077714.3.579.2.727 1968 Unknown [id number] 2.16.840.1.912447.3.579.2.727 1968 Unknown [id number] 2.16.840.1.840201.3.579.2.727 1968 Unknown [id number] 2.16.840.1.851880.3.579.2.173 1959 Unknown [id number] [id number] .[id number] Unknown [id number] 2.16.840.1.739091.3.579.2.531 Unknown [id number] [id number] Social History Date Type Detail Facility Start: 02-25-2019 End: 12-25-2022 Tobacco [facility] status [facility] Start: 02-25-2019 Alcohol intake Yes [employer] [place], [place] Start: 1970 Sex Assigned At Not on file [facility] [place] Start: 07-30-2012 Tobacco use and exposure Smokeless tobacco non-user [employer] Phone: Start: 03-05-2021 Alcohol intake Current drinke r of alcohol (finding) [facility] Phone: Tobacco smoking status Never [facility] Start: 1970 Sex Assigned At Female F [facility] Goals Date Patient Goal Desired Activity /State Functional Status Date Assessment Result Facility 07-22-2022 Functional Status N/A [facility] 11-21-2021 Functional Status N/A [facility] 10-03-2021 to 02-10-2023 Note Date [...] Other specified postprocedural states (ICD-10 - Z98.890) [facility] Other 09-12-2023 Evaluation note* Encounter Date Diagnosis [...] Other specified postprocedural states (ICD-10 - Z98.890) [facility] Other 09-05-2023 Evaluation note* Encounter Date Diagnosis Assessment Notes Treatment Notes Treatment Clinical Notes Dec, Other specified postprocedural states (ICD-10 - Z98.890) [facility] Other 08-24-2023 Evaluation note* Encounter Date Diagnosis [...] right knee, subsequent encounter (ICD-10 - S83.241D) [facility] Other 07-31-2023 Evaluation note* Encounter Date Diagnosis [...] Pain in left knee (ICD-10 - M25.562) [facility] Other 03-27-2023 Hospital Discharge instructions Patient Education 07/22/2022 10:14:42 Kidney Stones, Eaeo-mb-Zicm Kidney Stones Kidney stones are rock-like masses [...] Follow these instructions at home: Medicines Take yphz-ufv-bevdxgf and prescription medicines only as told by [...] 09/30/2008 Document Revised: 08/31/2019 Document Reviewed: 08/31/2019 [employer] Patient Education 2019 [employer] Follow Up Care 12/26/2021 13:33:59 With:MANNIE ARREGUIN, Jordi Mckeon, URL Address: [facility] [employer] [address] [place], [place] [id number]- When:01/22/2023 Comments:ANNAMARIE [facility] [place] [id number] Hospital Discharge instructions Patient Education 11/21/2021 12:49:44 Kidney Stones, Pioj-ly-Shbl Kidney Stones Kidney stones are rock-like masses [...] Follow these instructions at home: Medicines Take weka-pmz-ffinrhz and prescription medicines only as told by [...] 09/30/2008 Document Revised: 08/31/2019 Document Reviewed: 08/31/2019 [employer] Patient Education 2020 [employer]. Follow Up Care 11/14/2021 08:29:10 With:MANNIE ARREGUIN, Jordi P, URL Address: [address] [place] [address] When: Unknown [facility] 07-19-2022 NoteOPERATIVE NOTE OPERATION DATE: 11/13/2021 PREOPERATIVE [...] placed per urethra. A well lubricated, 22 Congolese cystourethroscope was passed into the bladder. Moderately tight at the bladder neck. Once into the bladder, teran endoscopy reveals no tumors or stones or diverticula. She does have a moderate cystocele present. Left retrograde pyelogram was then performed utilizing a 6 Congolese open ended ureteral catheter. The distal ureter [...] and then over the wire a 4.8 Congolese, 22-30 cm Microvasive double J stent was [...] procedure well. [facility] and then back to PACU in satisfactory [...] the plan. CC: Sue Win M.D. : [facility] Signed and Approved by: DR JORDI MAST 11/29/2021 08:56[facility]00[facility] NotePROCEDURE: XR KNEE RT 4V or > COMPARISON: None. HISTORY: Pain in right knee FINDINGS: BONES:No acute fracture or dislocation. Mild osteoarthritis with marginal osteophyte formation SOFT TISSUES:Negative. No visible soft tissue swelling. EFFUSION:None visible. OTHER: Negative. IMPRESSION: Mild osteoarthritis Electronically authenticated by: KODY GARRISON Date: 2021-10-03 07:59[facility] No data available for this section [facility] Evaluation + Plan note Future Appointments Appointment Date:01/27/2023 08:00:00 AM Scheduled Provider:Jordi MAST MD Location:[facility] Appointment Type:URO Office Visit [facility] Evaluation note* Diagnosis Vaginal discharge Leukorrhea, not specified as infective Women's annual routine gynecological examination documented in this encounter [facility] Work Phone: evaluation noteNo assessment information available [facility] Work Phone: Evaluation noteNo [facility]Lif[facility] [employer] Other History general Narrative - Reported* Type Description Date Medical History GERD Medical History Hypothyroidism [facility] Other History general Narrative - Reported* Type Description Date Medical History GERD Medical History Hypothyroidism Surgical History 1. LEFT knee arthros copy with partial medial meniscectomy 2. 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 ACP-Advance Directive ACP-Power of Construction Secretary Advance Directive Response Recorded Date/ Time Advance Directives No November 26 11:36am Advance Directive Response Recorded Date/ Time Advance Directives No December 20, 2022 12:52pm Chief Complaint and Reason for Visit Chief Complaint Kidney Ston Kidney Ston Kidney Stones Kidney Stones Kidney Stones Chief Complaint Knee Pain Family History No Family History Records Found Relationship Condition Age at Onset Recorded Date/T [...] Care Teams (unrecognized sec tion and content) 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 Operator Relationship Specialty Start Date End Date Sue Win MD [address] [place] [address] PCP - General Family Medicine 01/16/16 Team Status: Inactive Member Role Status Dates Sue Win MD Primary Care Provider Active Jordi Mast MD Attending Provider Active Team Status: Inactive Member Role Status Dates Jordi Mast MD Attending Provider Active Sue Win MD Primary Care Provider Active Team Status: Active Member Role Status Dates Sue Win MD Primary Care Provider Active Team Status: Inactive Member Role Status Dates Sue Win MD Primary Care Provider Active Shubham Rodrigues MD Attending Provider Active INFORMATION SOURCE (unrecogn ized section and content) DATE CREATED AUTHOR 08/18/2022 [facility] DATE CREATED AUTHOR AUTHOR'S ORGANIZ ATION 01/31/2023 [facility] DATE CREATED AUTHOR AUTHOR'S ORGANIZ ATION 02/07/2023 [facility] DATE CREATED AUTHOR AUTHOR'S ORGANIZ ATION 05/29/2023 Kylah whitt REASON FOR VISIT (unrecogniz ed section and [...] BE BASED ON THE PRIMARY CLINICAL RECORDS. [facility]. provides no warranty or guarantee of the accuracy or completeness of information in this document.
[2023-09-02 08:02] LABS: Estimated Average Glucose 105 mg/dL; Glycohemoglobin A1C 5.3 % (4.5-6.2)
[2023-09-02 08:09] LABS: Alanine Aminotransferase 28 U/L (14-59); Albumin Globulin Ratio 0.8; Albumin Level 3.1 g/dL (3.4-5.0); Alkaline Phosphatase 134 U/L (46-116); Anion Gap 11.3; Aspartate Amino Transferase 16 U/L (15-37); BUN Creatinine Ratio 19.5; Basophils Absolute Auto 0.1 10^3/uL (0.0-0.1); Basophils Percent Auto 0.7 % (0.2-2.0); Bilirubin Total 0.4 mg/dL (0.2-1.0); Calcium 9.1 mg/dL (8.5-10.1); Carbon Dioxide 28.2 mmol/L (21.0-32.0); Chloride 106 mmol/L (98-107); Chol HDL Ratio 3.8; Cholesterol 227 mg/dL (<=200); Eosinophils Absolute Auto 0.2 10^3/uL (0.0-0.7); Eosinophils Percent Auto 2.6 % (0.9-7.0); Estimated GFR (African America >60 (>=60); Estimated GFR (Non-African Ame >60 (>=60); Free T3 1.37 pg/mL (2.18-3.98); Globulin 3.9 g/dL; Glucose 103 mg/dL (74-106); HDL Cholesterol 59 mg/dL (40-60); Hematocrit 39.4 % (36.0-48.0); Hemoglobin 12.5 g/dL (12.0-16.0); Immature Granulocytes Abs Auto 0.02 10^3/uL (0.00-0.03); Immature Granulocytes Pct Auto 0.3 % (0.0-0.5); Lymphocytes Absolute Auto 2.1 10^3/uL (1.2-3.8); Lymphocytes Percent Auto 28.5 % (20.5-60.0); Mean Corpuscular HGB Conc 31.7 g/dL (29.9-35.2); Mean Corpuscular Hemoglobin 28.9 pg (26.7-34.0); Mean Platelet Volume 9.5 fL (9.5-13.5); Monocytes Absolute Auto 0.5 10^3/uL (0.3-0.8); Monocytes Percent Auto 6.6 % (1.7-12.0); Neutrophils Absolute Auto 4.5 10^3/uL (1.4-6.5); Neutrophils Percent Auto 61.3 % (43.0-75.0); Platelet Count 331 10^3/uL (150-450); Potassium 3.5 mmol/L (3.5-5.1); Red Blood Count 4.33 10^6/uL (4.20-5.40); Red Cell Distribution Width 13.4 % (11.0-15.0); Sodium 142 mmol/L (136-145); Triglycerides 78 mg/dL (<=150); VLDL CHOLESTEROL 15.6 mg/dL; White Blood Count 7.4 10^3/uL (4.0-11.0)
[2023-09-03 11:09] LABS: Insulin 12.2 uIU/mL (2.6-24.9)
== END 2023-09-02 07:14 | disposition home or self-care (01) ==
LOC: LAB 07:14
PROVIDERS: PCP Family Medicine; Visit Provider Family Medicine
DX: Z00.00 Encounter for general adult medical examination without abnormal findings (principal)
CPT/HCPCS: 36415; 80053; 80061; 83036; 83525; 84436; 84443; 84481; 85025

== ENCOUNTER 2023-09-03 07:36 | Outpatient (REF) | payer OTHER, SELFPAY ==
--- OUTSIDE RECORDS SUMMARY | 2023-09-03 07:39 | XMS_ITS | CCD ---
Author Organization [facility] Care Team Providers Care Pbx Repairer Name Role Phone Sue Win Primary Care Provider Sue Win Primary Care Physician [phone] MD Jordi Mast Attending Provider [phone] MD Sue Win Primary Care Provider [phone] TYREEY ., DR ROGERS Consulting Unavailable HOY [...] Attending Unavailable TIMMIS, DR GABRIEL Admmessi Unavailable MARICOPA, DR KODY Pappas Consulting Unavailable HOY ., [...] ROGERS Primary Care Unavailable MANNIE, DR JORDI Mcekon Attending Unavailable COOK, DR JORDI Mckeon Admitting [...] Unavailable HOY ., DR ROGERS Admitting Unavailable MARICOPA, DR KODY Pappas Consulting Unavailable MANNIE, DR JORDI Mckeon Consulting Unavailable YAIMA Thakkar, DR ROGERS Primary Care Unavailable MANNIE, DR JORDI Mckeno Attending Unavailable MANNIE, DR JORDI Mckeon Admitting [...] Medication Allergies] Propensity to adverse reactions (disorder) [facility] Repository Medications Current Medications Medication Drug Class(es) Dates Sig (Normalized) Sig (Original) acetaminophen 325 mg / HYDROcodone bitartrate 5 mg oral tablet (10 sources) Opioid Agonist Start: 12-31-2022 take 1 tablet by mouth every four hours as needed for pain HYDROcodone-Aceta minophen 5-325 MG 1 tablet as needed for pain Orally up to every 4 hrs for 5 days PB: [id number] Dec, Active Start: 11-29-2021 End: 12-13-2021 take [...] 11-16-2021 Episodic Other aftercare (1 source) Other half-way (current) drug therapy; Translations: [OTH 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 -Endocervical/trans formation zone component is absent. Descriptive Diagnosis: Negative for intraepithelial lesion or malignancy. Cytotech Screener: EY Electronically Signed Out Margot Rand CT(ASCP) ey/05/28/2023 Source of Specimen: A: Imaged ThinPrep Pap - Cervical (1 monolayer slide) HPV Reflex?............ ..........HPV if Abnormal Clinical History Postmenopausal Z01.419 Routine curator exam without abnormal findings LMP: 01/23/2016 Processing Lab: [address] [id number] Interpretation performed at [address] [address] This Pap Test has been evaluated with the assistance of the MotobuykersPrep Pap Test Imaging System. The Pap smear is a screening test primarily for squamous epithelial lesions, which is subject to both false negative and false positive results. Your patient should be reminded to consult you immediately if she experiences any suspicious signs or symptoms, regardless of her Pap smear result. GYNECOLOGIC CYTOLOGY REPORT Patient Name: KAROL PLASCENCIA Leonarda [facility] Rec: [id number] [facility] [place] [facility] ANATOMIC PATHOLOGY [address] [place] [address]. [place], [place] [address] [facility] Ambulatory Visit Summaryon 1 Ambulatory Visit Summary KAROL PLASCENCIA :1970 Visit Date:01/27/2023 Ambulatory Visit Instructions Your Diagnosis Kidney stone Tests Performed Urnls Dip Stick Auto w/o Microscopy POC 46100 XR Abdomen 1 View -- Results Pending [...] ARREGUIN, Jordi Mckeon Where: [facility] Patient Educationon 01-28-20 Patient Education Nephrology Dietary [...] Spinach (cooked), rhubarb, beets, sweet potatoes, and [place] chard. ? Peanuts. ? Potato chips, latvian fries, and baked potatoes with skin on. ? Nuts and nut products. ? Chocolate. ? If you regularly take a diuretic medicine, make sure to eat at least 1 or 2 servings of fruits or vegetables that are high in potassium each day. These include: ? Avocado. ? Banana. ? [place], prune, carrot, or tomato juice. ? Baked [...] fish oil, or vitamin B6. ? Take zvlv-dyw-ktievkj and prescription medicines only as told by your health care provider. These include supplements. What foods should I limit? Limit your in (more content not included)... Normal Psoey [facility] Urology Office/Clinic Noteon 01-27-2023 Urology Office/Clinic Note Chief Complaint Pt is here for 6 month w/ KUB HPI Staff 52 yo female here for 6 month f/u with KUB. Previous Dx: kidney stone. S/p ESWL 12/21/21, Cysto/stent placement 11/29/21, and Cysto 11/13/21. Litholink done 08/12/22. KUB done 01/23/23 at [facility]. Dysuria: denies Incomplete bladder emptying: denies Hematuria: [...] [address] [place] [address]- Additional Instructions: w/KUB Patient Education Dietary Guidelines [...] with voice recognition artificial intelligence software, specifically [employer], [employer] and or [employer]. Substitutions may have occurred due to the [...] mg T (more content not included)... Normal [facility] Comment on above: Result Comment: Elec tronically Signed By: Jordi MAST MD\.br\Date and Time Signed: 01/27/23 08:50 EDT\.br\Electronically Co-Signed By: Radha Townsend\.br\Date and Time Co-Signed: 01/27/23 08:33 EDT RAD - MISCon 01-24-2023 RAD - MIS [id number] 2C#1.00CD:127 Normal [facility] Alanine aminotransferase [En zymatic activity/volume] in Serum or PlasmaOrdered By: Shubham Rodrigues on 12-25-2022 ALT [Catalytic activity/Vol] 27 U/L 7-52 [facility] Albumin [Mass/volume] in Ser um or Plasma by Bromocresol green (BCG) dye binding methoOrdered By: Shubham Rodrigues on 12-25-2022 Albumin BCG dye [Mass/Vol] 3.9 g/dL 3.5-5.7 [facility] Alkaline phosphatase [Enzyma tic activity/volume] in Serum or PlasmaOrdered By: Shubham Rodrigues on 12-25-2022 ALP [Catalytic activity/Vol] 138 U/L 34-104 [facility] Aspartate aminotransferase [ Enzymatic activity/volume] in Serum or PlasmaOrdered By: Shubham Rodrigues on 12-25-2022 AST [Catalytic activity/Vol] 20 U/L 13-39 [facility] Basophils Auto (Bld) [#/Vol] Ordered By: Shubham Rodrigues on 12-25-2022 Basophils (Bld) [#/Vol] 0.1 10*3/uL 0.0-0.2 [facility] Basophils/100 WBC Auto (Bld) Ordered By: Shubham Chase on 12-25-2022 Basophils/100 WBC (Bld) 0.8 % . F [facility] Bilirubin.total [Mass/volume ] in Serum or PlasmaOrdered By: Shubham Rodrigues on 12-25-2022 Bilirubin [Mass/Vol] 0.4 mg/dL 0.3-1.0 [facility] CMP with reflex to A1Con Albumin [Mass/Vol] 3.9 g/dL Normal 3.5-5.7 [facility] Comment on above: Performed By: #### C BC, CMP wRFX A1C #### [facility] [address] Albumin/Globulin [Mass ratio] 1.4 {ratio} Normal [facility] Comment on above: Performed By: #### C BC, CMP wRFX A1C #### [facility] [address] ALP [Catalytic activity/Vol] 138 U/L High 34-104 [facility] Comment on above: Result Comment: PERF ORMED BY: [place] [address] PATHOLOGIST [employer] OPERATOR MULUGETA ANGLIN M.D. Performed By: #### C BC, CMP wRFX A1C #### [facility] [address] [place] [address] [place] ALT [Catalytic activity/Vol] 27 U/L Normal 7-52 [facility] Comment on above: Performed By: #### C BC, CMP wRFX A1C #### [facility] [address] [place] [id number] [place] Anion gap [Moles/Vol] 10.0 mmol/L Normal 6.0-15.0 [facility] Comment on above: Performed By: #### C BC, CMP wRFX A1C #### [facility] [address] [place] [address] [place] AST [Catalytic activity/Vol] 20 U/L Normal 13-39 [facility] Comment on above: Performed By: #### C BC, CMP wRFX A1C #### [facility] [address] [place] [address] [place] Bilirubin [Mass/Vol] 0.4 mg/dL Normal 0.3-1.0 [facility] Comment on above: Performed By: #### C BC, CMP wRFX A1C #### [facility] [address] [place] [address] [place] Calcium [Mass/Vol] 9.1 mg/dL Normal 8.6-10.3 [facility] Comment on above: Performed By: #### C BC, CMP wRFX A1C #### [facility] [address] Chloride [Moles/Vol] 104 mmol/L Normal 98-107 [facility] Comment on above: Performed By: #### C BC, CMP wRFX A1C #### [facility] [address] [place] [address] CO2 [Moles/Vol] 30.2 mmol/L Normal 21.0-31.0 [facility] Comment on above: Performed By: #### C BC, CMP wRFX A1C #### [address] Creatinine [Mass/Vol] 0.69 mg/dL Normal 0.60-1.20 [facility] Comment on above: Performed By: #### C BC, CMP wRFX A1C #### [facility] [address] [place] [address] [place] GFR/1.73 sq M.predicted MDRD (S/P/Bld) [Vol rate/Area] mL/min/{1.73_m2} [facility] Comment on above: Performed By: #### C BC, CMP wRFX A1C #### [facility] [address] [place] [address] [place] Globulin (S) [Mass/Vol] 2.8 g/dL Normal [facility] Comment on above: Performed By: #### C BC, CMP wRFX A1C #### [facility] [address] [place] [id number] [place] Glucose [Mass/Vol] 99 mg/dL Normal 70-100 [facility] Comment on above: Performed By: #### C BC, CMP wRFX A1C #### [facility] [address] [place] [id number] [place] Potassium [Moles/Vol] 4.2 mmol/L Normal 3.5-5.1 [facility] Comment on above: Performed By: #### C BC, CMP wRFX A1C #### [facility] [address] [place] [id number] [place] Protein [Mass/Vol] 6.7 g/dL Normal 6.4-8.9 [facility] Comment on above: Performed By: #### C BC, CMP wRFX A1C #### [facility] [address] [place] [address] [place] Sodium [Moles/Vol] 140 mmol/L Normal 136-145 [facility] Comment on above: Performed By: #### C BC, CMP wRFX A1C #### [facility] [address] [place] [id number] [place] Urea nitrogen [Mass/Vol] 18 mg/dL Normal 7-25 [facility] Comment on above: Performed By: #### C BC, CMP wRFX A1C #### [facility] [address] [place] [id number] [place] Calcium [Mass/volume] in Ser um or PlasmaOrdered By: Shubham Rodrigues on 12-25-2022 Calcium [Mass/Vol] 9.1 mg/dL 8.6-10.3 [facility] Carbon dioxide, total [Moles /volume] in Serum or PlasmaOrdered By: Shubham Rodrigues on 12-25-2022 CO2 [Moles/Vol] 30.2 mmol/L 21.0-31.0 [facility] Chloride [Moles/volume] in S gerry or PlasmaOrdered By: Shubham Rodrigues on 12-25-2022 Chloride [Moles/Vol] 104 mmol/L 98-107 [facility] Complete Blood Count Auto Di ffon 12-25-2022 Basophils (Bld) [#/Vol] 0.1 10*3/uL Normal 0.0-0.2 [facility] Comment on above: Result Comment: PERF ORMED BY: [place] [address] PATHOLOGIST [employer] OPERATOR MULUGETA ANGLIN M.D. Performed By: #### C BC, CMP wRFX A1C #### [facility] [address] [place] [address] Basophils/100 WBC (Bld) 0.8 % Normal . F [facility] Comment on above: Performed By: #### C BC, CMP wRFX A1C #### [facility] [address] [place] [address] Eosinophils (Bld) [#/Vol] 0.2 10*3/uL Normal 0.0-0.45 [facility] Comment on above: Performed By: #### C BC, CMP wRFX A1C #### [address] Eosinophils/100 WBC (Bld) 3.0 % Normal . [facility] Comment on above: Performed By: #### C BC, CMP wRFX A1C #### [address] Erythrocyte distribution width (RBC) [Ratio] 14.4 % Normal 11.9-15.3 [facility] Comment on above: Performed By: #### C BC, CMP wRFX A1C #### [facility] [address] [place] [address] Hematocrit (Bld) [Volume fraction] 39.1 % Normal 34.0-46.4 [facility] Comment on above: Performed By: #### C BC, CMP wRFX A1C #### [address] Hemoglobin (Bld) [Mass/Vol] 13.0 g/dL Normal 11.8-15.4 [facility] Comment on above: Performed By: #### C BC, CMP wRFX A1C #### [address] [place] [address] [place] Lymphocytes (Bld) [#/Vol] 1.5 10*3/uL Normal 1.00-4.8 [facility] Comment on above: Performed By: #### C BC, CMP wRFX A1C #### [facility] [address] Lymphocytes/100 WBC (Bld) 22.8 % Normal . [facility] Comment on above: Performed By: #### C BC, CMP wRFX A1C #### [place] [address] [place] MCH (RBC) [Entitic mass] 28.9 pg Normal 24.7-34.3 [facility] Comment on above: Performed By: #### C BC, CMP wRFX A1C #### [address] MCV (RBC) [Entitic vol] 86.9 fL Normal 80-100 F [facility] Comment on above: Performed By: #### C BC, CMP wRFX A1C #### [address] Mean Corpuscular HGB Conc 33.2 g/dL Normal 32.0-35.0 [facility] Comment on above: Performed By: #### C BC, CMP wRFX A1C #### [place] [address] [place] Monocytes (Bld) [#/Vol] 0.3 10*3/uL Normal 0.0-0.8 [facility] Comment on above: Performed By: #### C BC, CMP wRFX A1C #### [place] [address] [place] Monocytes/100 WBC (Bld) 4.8 % Normal . F [facility] Comment on above: Performed By: #### C BC, CMP wRFX A1C #### [place] [address] [place] Neutrophils (Bld) [#/Vol] 4.7 10*3/uL Normal 1.8-7.7 [facility] Comment on above: Performed By: #### C BC, CMP wRFX A1C #### [facility] [address] [place] [address] [place] Neutrophils/100 WBC (Bld) 68.6 % Normal . [facility] Comment on above: Performed By: #### C BC, CMP wRFX A1C #### [facility] [address] [place] [address] [place] NRBC% 0.1 /100{WBC} Normal 0-0.5 [facility] Comment on above: Performed By: #### C BC, CMP wRFX A1C #### [facility] [address] Platelet mean volume (Bld) [Entitic vol] 7.2 fL Normal 6.3-10.7 [facility] Comment on above: Performed By: #### C BC, CMP wRFX A1C #### [facility] [address] Platelets (Bld) [#/Vol] 334 10*3/uL Normal 150-450 [facility] Comment on above: Performed By: #### C BC, CMP wRFX A1C #### [facility] [address] RBC (Bld) [#/Vol] 4.50 10*6/uL Normal 3.60-5.00 [facility] Comment on above: Performed By: #### C BC, CMP wRFX A1C #### [facility] [address] [place] [address] [place] WBC (Bld) [#/Vol] 6.8 10*3/uL Normal 3.8-11.6 [facility] Comment on above: Performed By: #### C BC, CMP wRFX A1C #### [facility] [address] [place] [address] [place] Creatinine [Mass/volume] in Serum or PlasmaOrdered By: Shubham Rodrigues on 12-25-2022 Creatinine [Mass/Vol] 0.69 mg/dL 0.60-1.20 [facility] ECG 12 lead ECGon 12-25-2022 ECG 12 lead ECG [facility] [place] [address] [place] [address] Electrocardiograph Report Signed Patient: Karol Plascencia MR#: [id number] : 1970 Acct:[id number] Age/Sex: 52 / F ADM Date: 12/25/22 Loc: PS Room: Type: [facility] Attending Dr: Shubham Rodrigues MD Ordering Provider: [...] By Tl Bryan DO 12/25 1134 Normal [facility] Eosinophils Auto (Bld) [#/Vo l]Ordered By: Shubham Rodrigues on 12-25-2022 Eosinophils (Bld) [#/Vol] 0.2 10*3/uL 0.0-0.45 [facility] Eosinophils/100 WBC Auto (Bl d)Ordered By: Shubham Rodrigues on 12-25-2022 Eosinophils/100 WBC (Bld) 3.0 % . [facility] Erythrocyte distribution wid th Auto (RBC) [Ratio]Ordered By: Shubham Rodrigues on 12-25-2022 Erythrocyte distribution width (RBC) [Ratio] 14.4 % 11.9-15.3 [facility] Globulin Calc (S) [Mass/Vol] Ordered By: Shubham Rodrigues on 12-25-2022 Globulin (S) [Mass/Vol] 2.8 g/dL [facility] Glucose [Mass/volume] in Ser um or PlasmaOrdered By: Shubham Rodrigues on 12-25-2022 Glucose [Mass/Vol] 99 mg/dL 70-100 [facility] Hematocrit Auto (Bld) [Volum e fraction]Ordered By: Shubham Rodrigues on 12-25-2022 Hematocrit (Bld) [Volume fraction] 39.1 % 34.0-46.4 [facility] Hemoglobin [Mass/volume] in BloodOrdered By: Shubham Rodrigues on 12-25-2022 Hemoglobin (Bld) [Mass/Vol] 13.0 g/dL 11.8-15.4 [facility] Leukocytes [#/volume] correc darren for nucleated erythrocytes in Blood by Automated counOrdered By: Shubham Rodrigues on 12-25-2022 WBC corrected for nucl RBC Auto (Bld) [#/Vol] 6.8 10*3/uL 3.8-11.6 [facility] Lymphocytes Auto (Bld) [#/Vo l]Ordered By: Shubham Rodrigues on 12-25-2022 Lymphocytes (Bld) [#/Vol] 1.5 10*3/uL 1.00-4.8 [facility] Lymphocytes/100 WBC Auto (Bl d)Ordered By: Shubham Rodrigues on 12-25-2022 Lymphocytes/100 WBC (Bld) 22.8 % . [facility] MCH Auto (RBC) [Entitic mass ]Ordered By: Shubham Rodrigues on 12-25-2022 MCH (RBC) [Entitic mass] 28.9 pg 24.7-34.3 [facility] MCHC Auto (RBC) [Mass/Vol]Or dered By: Shubham Rodrigues on 12-25-2022 MCHC (RBC) [Mass/Vol] 33.2 g/dL 32.0-35.0 [facility] MCV Auto (RBC) [Entitic vol] Ordered By: Shubham Rodrigues on 12-25-2022 MCV (RBC) [Entitic vol] 86.9 fL 80-100 [facility] Monocytes Auto (Bld) [#/Vol] Ordered By: Shubham Rodrigues on 12-25-2022 Monocytes (Bld) [#/Vol] 0.3 10*3/uL 0.0-0.8 [facility] Monocytes/100 WBC Auto (Bld) Ordered By: Shubham Rodrigues on 12-25-2022 Monocytes/100 WBC (Bld) 4.8 % . F [facility] Neutrophils Auto (Bld) [#/Vo l]Ordered By: Shubham Rodrigues on 12-25-2022 Neutrophils (Bld) [#/Vol] 4.7 10*3/uL 1.8-7.7 [facility] Neutrophils/100 WBC Auto (Bl d)Ordered By: Shubham Rodrigues on 12-25-2022 Neutrophils/100 WBC (Bld) 68.6 % . [facility] No Panel InformationOrdered By: Shubham Rodrigues on 12-25-2022 Estimated GFR (CKD-EPI) > 60.0 mL/Min [facility] Pharmacy Creatinine Clearance (Chem N/A [facility] Nucleated erythrocytes [Pres ence] in Blood by Automated countOrdered By: Shubham Rodrigues on 12-25-2022 Nucleated RBC Auto Ql (Bld) 0.1 /100{WBC} 0-0.5 [facility] Platelet mean volume Auto (B ld) [Entitic vol]Ordered By: Shubham Rodrigues on 12-25-2022 Platelet mean volume (Bld) [Entitic vol] 7.2 fL 6.3-10.7 [facility] Platelets Auto (Bld) [#/Vol] Ordered By: Shubham Rodrigues on 12-25-2022 Platelets (Bld) [#/Vol] 334 10*3/uL 150-450 [facility] Potassium [Moles/volume] in Serum or PlasmaOrdered By: Shubham Rodrigues on 12-25-2022 Potassium [Moles/Vol] 4.2 mmol/L 3.5-5.1 [facility] Protein [Mass/volume] in Ser um or PlasmaOrdered By: Shubham Rodrigues on 12-25-2022 Protein [Mass/Vol] 6.7 g/dL 6.4-8.9 [facility] RBC Auto (Bld) [#/Vol]Ordere d By: Shubham Rodrigues on 12-25-2022 RBC (Bld) [#/Vol] 4.50 10*6/uL 3.60-5.00 [facility] Serum or plasma albumin/glob ulin mass ratioOrdered By: Shubham Rodrigues on 12-25-2022 Albumin/Globulin [Mass ratio] 1.4 {ratio} [facility] Serum or plasma anion gap de terminationOrdered By: Shubham Rodrigues on 12-25-2022 Anion gap [Moles/Vol] 10.0 mmol/L 6.0-15.0 [facility] Sodium [Moles/volume] in Ser um or PlasmaOrdered By: Shubham Rodrigues on 12-25-2022 Sodium [Moles/Vol] 140 mmol/L 136-145 [facility] Urea nitrogen [Mass/volume] in Serum or PlasmaOrdered By: Shubham Rodrigues on 12-25-2022 Urea nitrogen [Mass/Vol] 18 mg/dL 7-25 [facility] WBC Auto (Bld) [#/Vol]Ordere d By: Shubham Rodrigues on 12-25-2022 WBC (Bld) [#/Vol] 6.8 10*3/uL 3.8-11.6 [facility] Lab Reportson 08-21-2022 Lab Reports [id number] 59#1.00CD:127 Normal [facility] Lab Reportson 08-14-2022 Lab Reports [id number] 16#1.00CD:127 Normal [facility] PTH INTACTon 08-13-2022 PTH, Intact 59 pg/mL Normal 15-65 [facility] Comment on above: Performed By: #### P THINT ####[facility] [address] [place] [id number]. Mikaela Caldwell BUNon 08-12-2022 Urea nitrogen [Mass/Vol] 12.0 mg/dL Normal 7.0-18.0 [facility] Comment on above: Performed By: #### C A, K, CL, BUN, URIC, CO2, CREA, NA ####[facility] [address] [place], [place] [address]Ii. Mikaela Caldwell CALCIUMon 08-12-2022 Calcium [Mass/Vol] 9.0 mg/dL Normal 8.5-10.1 [facility] Comment on above: Performed By: #### C A, K, CL, BUN, URIC, CO2, CREA, NA ####[facility] [address] [place] [address]Dr. Mikaela Caldwell CHLORIDEon 08-12-2022 Chloride [Moles/Vol] 107 mmol/L Normal 98-107 [facility] Comment on above: Performed By: #### C A, K, CL, BUN, URIC, CO2, CREA, NA ####[facility] [address] [place] [address] CO2on 08-12-2022 CO2 [Moles/Vol] 29.7 mmol/L Normal 21.0-32.0 [facility] Comment on above: Performed By: #### C A, K, CL, BUN, URIC, CO2, CREA, NA ####[facility] [address] [place] [address] [facility] CREATININEon 08-12-2022 Creatinine [Mass/Vol] 0.85 mg/dL Normal 0.55-1.02 [facility] Comment on above: Performed By: #### C A, K, CL, BUN, URIC, CO2, CREA, NA ####[facility] [address] [place] [address] [facility] EGFR-AF GUATEMALAN >60 Normal >=60 [facility] Comment on above: Performed By: #### C A, K, CL, BUN, URIC, CO2, CREA, NA ####[facility] [address] [place], [place] [address]Dr. [facility] EGFR-NON AF GUATEMALAN >60 Normal >=60 [facility] Comment on above: Performed By: #### C A, K, CL, BUN, URIC, CO2, CREA, NA ####[facility] [address] [place], [place] [address]Dr. Mikaela Caldwell NAon 08-12-2022 Sodium [Moles/Vol] 142 mmol/L Normal 136-145 [facility] Comment on above: Performed By: #### C A, K, CL, BUN, URIC, CO2, CREA, NA ####[facility] [address] [place], [place] [address]Vg. Mikaela Caldwell POTASSIUMon 08-12-2022 Potassium [Moles/Vol] 3.9 mmol/L Normal 3.5-5.1 [facility] Comment on above: Performed By: #### C A, K, CL, BUN, URIC, CO2, CREA, NA ####[facility] [id number] [place], [place] [address]Ep. Mikaela Caldwell URIC ACID SERUMon 08-12-2022 Urate [Mass/Vol] 3.8 mg/dL Normal 2.6-6.0 [facility] Comment on above: Performed By: #### C A, K, CL, BUN, URIC, CO2, CREA, NA ####[facility] [id number] [place], [place] [address]Bb. Mikaela Caldwell Formson 07-24-2022 Forms [id number]:127 Normal [facility] Patient Educationon 07-23-19 23 Patient [...] these instructions at home: Medicines ? Take qxxz-lzc-slxpoxt and prescription medicines only as told by [...] 09/30/2008 Document Revised: 08/31/2019 Document Reviewed: 08/31/2019 [employer] Patient Education ? 2019 [employer] [facility]-2022 [facility] [id number]:127 Normal [facility] Urology Office/Clinic Noteon 07-22-2022 Urology [...] 01/22/[address] [place] [id number] Additional Instructions: KUB Patient Education Kidney Stones, [id number] I, Charisma Husain , personally scribed for [...] Protein Urine Dipstick: Negative (07/22/22 09:47:00) Specific [place] Urine Dipstick: <=1.005 (07/22/22 09:47:00) Urine Appearance Urine Dipstick: Clear (07/22/22 09:47:00) Urine Color Urine Dipstick: Light yellow (07/22/22 09:47:00) Urobilinogen Urine Dipstick: Normal 0.2-1 EU/dl (07/22/22 09:47:00) pH Urine Dipstick: 5.5 (07/22/22 09:47:00) Diagnostic (more content not included)... Normal [facility] Comment on above: Result Comment: [...] ZENAIDA ENGLISH Date: 2022-07-18 09:03 Normal [facility] Provider Letteron 05-31-2022 Provider Letter May 31, 2022 KAROL PLASCENCIA [address] [place] [address] KAROL PLASCENCIA 1970 Dear Karol, We have [...] prompt attention to this matter. Please call [phone] x [phone] Sincerely, [facility] [address] [address] x 1 Normal [facility] US THYROIDon 05-15-2022 US THYROID [...] IMPRESSION: Bilateral stable thyroid nodules TI-RADS: The [employer] TI-RADS committee's white paper recommendations for thyroid lesions classified as TR4 (moderately suspicious) are listed below: > 1.0 cm. Follow-up ultrasound in 1, 2, 3, and 5 years. > 1.5 cm. FNA. J. Am Ellen Radiol 2017;14:587-595. Electronically authenticated by: KODY GARRISON Date: 2022-05-15 11:41 Normal [facility] MG MAMM SCREEN 3D ANN-MARIE CADon 03-27-2022 MG MAMM SCREEN 3D ANN-MARIE CAD Patient: KAROL PLASCENCIA Exam Date: 03/27/2022 : 1970 Gender:F Ordering : DR SUE WIN . Admission #: [id number] Family : Order #: [id number] CLICK HERE TO VIEW EXAM RADIOLOGY REPORT [...] prostate cancer at age 67. LOCATION: [facility] BREAST COMPOSITION: Heterogeneously dense,which may [...] on 03/27/2022 at 15:33 Normal [facility] Ammonium urate crystals dete ction in stone by infrared spectroscopyOrdered By: Jordi Mast on 12-21-2021 Ammonium urate crystals Infrared spectroscopy Ql (Stone) N/A [facility] [place] Calcium bilirubinate measure mentOrdered By: Jordi Mast on 12-21-2021 Calcium bilirubinate (Stone) [Mass fraction] N/A [facility] Calcium carbonate measuremen tOrdered By: Jordi Mast on 12-21-2021 Calcium carbonate (Stone) [Mass fraction] N/A [facility] Calcium hydrogen phosphate d ihydrate/Total in StoneOrdered By: Jordi Mast on 12-21-2021 Calcium hydrogen phosphate dihydrate (Stone) [Mass fraction] N/A [facility] Calcium oxalate dihydrate cr ystals detection in stone by infrared spectroscopyOrdered By: Jordi Mast on 12-21-2021 Calcium oxalate dihydrate crystals Infrared spectroscopy Ql (Stone) 20 % . [facility] [place] Calcium oxalate monohydrate/ Total in StoneOrdered By: Jordi Mast on 12-21-2021 Calcium oxalate monohydrate (Stone) [Mass fraction] 80 % . [facility] Calcium phosphate measuremen tOrdered By: Jordi Mast on 12-21-2021 Calcium phosphate (Stone) [Mass fraction] N/A [facility] Calculus analysis interpreta tion in stoneOrdered By: Jordi Mast on 12-21-2021 Calculus analysis [Interp] N/A [facility] [place] Calculus analysis [Interp] See comment . [facility] Comment on above: Calculus received in liquid. Wet calculi must be dried before analysis, which delays reporting of results. Leaving calculi in liquid (such as water, saline, blood, urine) may lead to changes in composition. Physician questions regarding Calculi Analysis contact [employer] at: [phone]. Calculi report will follow via computer, mail or food and nutrition services supervisor delivery. Calculus analysis with calcu guera photography interpretation in stoneOrdered By: Jordi Mast on 12-21-2021 Calculus analysis with calculus photography [Interp] See comment . [facility] [place] Comment on above: Photograph will foll ow under a separate cover Cellular material measuremen t in stone by estimated (mass/mass)Ordered By: Jordi Mast on 12-21-2021 Cellular material Est (Stone) [Mass/Mass] N/A [facility] Cholesterol/Total in StoneOr dered By: Jordi Mast on 12-21-2021 Cholesterol (Stone) [Mass fraction] N/A [facility] Composition of stoneOrdered By: Jordi Mast on 12-21-2021 Composition Nom (Stone) See comment . [facility] Comment on above: Percentage (Represen ts the % composition) Cystine measurementOrdered B y: Jordi Mast on 12-21-2021 Cystine (Unsp spec) [Moles/Vol] N/A [facility] Determination of color of ca lculusOrdered By: Jordi Mast on 12-21-2021 Color (Stone) Brown . [facility] Hydroxyapatite [Energy Diffe rence] in 24 hour UrineOrdered By: Jordi Mast on 12-21-2021 Hydroxyapatite (24H U) [Energy diff] N/A [facility] Measurement of proportion of calculus composed of dried blood (mass/mass)Ordered By: Jordi Mast on 12-21-2021 Blood.dried (Stone) [Mass fraction] N/A [facility] Newberyite/Total in StoneOrd ered By: Jordi Mast on 12-21-2021 Newberyite (Stone) [Mass fraction] N/A [facility] No Panel InformationOrdered By: Jordi Mast on 12-21-2021 Stone 2,8 Dihydroxyadenine N/A [facility] Stone Analysis Disclaimer See comment . [facility] Comment on above: This test was develo ped and its performance characteristics determined by [employer]. It has not been cleared or approved by the Food and Drug Administration. Performed at: [facility] Stone Analysis [address] [place] [address] [place] [id number] Freight Checker: Jayson Santos PhD, Phone: [phone] Stone Bilirubinate N/A [facility] Stone Calcium Palmitate N/A [facility] Stone Calcium Stearate N/[facility] Stone Carbonate Apatite N/A F [facility] Stone Drug or Metabolite N/A [facility] Stone Other Constituent N/A [facility] Stone Xanthine N/A [facility] Size [Entitic volume] of Sto neOrdered By: Jordi Mast on 12-21-2021 Size (Stone) [Entitic vol] 5x3 mm . [facility] Comment on above: Multiple pieces rece ived. Dimensions of the largest piece reported. Sodium urate crystals detect ion in stone by infrared spectroscopyOrdered By: Jordi Mast on 12-21-2021 Sodium urate crystals Infrared spectroscopy Ql (Stone) N/A [facility] Specimen source subject [Typ e]Ordered By: Jordi Mast on 12-21-2021 Specimen source subject Nom See comment . [facility] Comment on above: Left Ureter Triamterene measurement in c alculusOrdered By: Jordi Mast on 12-21-2021 Triamterene (Stone) [Mass fraction] N/A [facility] Triple phosphate/Total in St oneOrdered By: Jordi Mast on 12-21-2021 Triple phosphate (Stone) [Mass fraction] N/A [facility] Uric acid dihydrate crystals detection in stone by infrared spectroscopyOrdered By: Jordi Mast on 12-21-2021 Urate dihydrate crystals Infrared spectroscopy Ql (Stone) N/A [facility] COVID-19 Positive/NegativeOr dered By: Jordi Mast on 12-19-2021 SARS-CoV-2 (COVID-19) N gene ISABELLA+probe Ql (Resp) Negative Negative [facility] Comment on above: Testing for SARS-CoV -2 by RT-PCR This test was developed and its performance characteristics determined by [employer] and validated at the [facility]. This test has not been FDA [...] aPTT Coag (PPP) [Time] 40.1 s 25.1-36.5 [facility] Basophils Auto (Bld) [#/Vol] Ordered By: Jordi Mast on 12-13-2021 Basophils (Bld) [#/Vol] 0.1 10*3/uL 0.0-0.2 [facility] Basophils/100 WBC Auto (Bld) Ordered By: Jordi Mast on 12-13-2021 Basophils/100 WBC (Bld) 0.8 % . F [facility] Blood hemoglobin measurement (mass/volume)Ordered By: Jordi Mast on 12-13-2021 Hemoglobin (Bld) [Mass/Vol] 12.8 g/dL 11.8-15.4 [facility] Blood leukocytes automated c ount (number/volume)Ordered By: Jordi Mast on 12-13-2021 WBC (Bld) [#/Vol] 6.9 10*3/uL 4.5-11.0 [facility] Creatinine and Glomerular fi ltration rate.predicted panel (S/P/Bld)Ordered By: Jordi Mast on 12-13-2021 Creatinine [Mass/Vol] 0.76 mg/dL 0.44-1.03 [facility] Eosinophils Auto (Bld) [#/Vo l]Ordered By: Jordi Mast on 12-13-2021 Eosinophils (Bld) [#/Vol] 0.3 10*3/uL 0.0-0.45 [facility] Eosinophils/100 WBC Auto (Bl d)Ordered By: Jordi Mast on 12-13-2021 Eosinophils/100 WBC (Bld) 4.9 % . [facility] Erythrocyte distribution wid th Auto (RBC) [Ratio]Ordered By: Jordi Mast on 12-13-2021 Erythrocyte distribution width (RBC) [Ratio] 14.0 % 11.9-15.3 [facility] Estimated glomerular filtrat ion rate (GFR) non- AmericanOrdered By: Jordi Mast on 12-13-2021 GFR/1.73 sq M.predicted among non-blacks MDRD (S/P/Bld) [Vol rate/Area] > 60 mL/Min [facility] Hematocrit Auto (Bld) [Volum e fraction]Ordered By: Jordi Mast on 12-13-2021 Hematocrit (Bld) [Volume fraction] 39.2 % 34.0-46.4 [facility] Laboratory - CoagulationOrde red By: Jordi Mast on 12-13-2021 PT Coag (PPP) [Time] 11.9 s 9.0-12.9 [facility] Laboratory - Hematology and Cell countsOrdered By: Jordi Mast on 12-13-2021 Nucleated RBC/100 WBC (Bld) [Ratio] 0.1 % 0-0.5 [facility] Lymphocytes Auto (Bld) [#/Vo l]Ordered By: Jordi Mast on 12-13-2021 Lymphocytes (Bld) [#/Vol] 2.0 10*3/uL 1.00-4.8 [facility] Lymphocytes/100 WBC Auto (Bl d)Ordered By: Jordi Mast on 12-13-2021 Lymphocytes/100 WBC (Bld) 28.9 % . [facility] MCH Auto (RBC) [Entitic mass ]Ordered By: Jordi Mast on 12-13-2021 MCH (RBC) [Entitic mass] 28.8 pg 24.7-34.3 [facility] MCHC Auto (RBC) [Mass/Vol]Or dered By: Jordi Mast on 12-13-2021 MCHC (RBC) [Mass/Vol] 32.6 g/dL 32.0-35.0 [facility] MCV Auto (RBC) [Entitic vol] Ordered By: Jordi Mast on 12-13-2021 MCV (RBC) [Entitic vol] 88.1 fL 80-100 F [facility] Monocytes Auto (Bld) [#/Vol] Ordered By: Jordi Mast on 12-13-2021 Monocytes (Bld) [#/Vol] 0.4 10*3/uL 0.0-0.8 [facility] Monocytes/100 WBC Auto (Bld) Ordered By: Jordi Mast on 12-13-2021 Monocytes/100 WBC (Bld) 6.5 % . F [facility] Neutrophils Auto (Bld) [#/Vo l]Ordered By: Jordi Mast on 12-13-2021 Neutrophils (Bld) [#/Vol] 4.1 10*3/uL 1.8-7.7 [facility] Neutrophils/100 WBC Auto (Bl d)Ordered By: Jordi Mast on 12-13-2021 Neutrophils/100 WBC (Bld) 58.9 % . [facility] No Panel InformationOrdered By: Jordi Mast on 12-13-2021 Estimated GFR () > 60 mL/Min [facility] Comment on above: GFR estimated refere nce range: According to KDOQI guidelines, <60 ml/min/1.73m2 is sufficient to diagnose a patient with chronic kidney disease. Pharmacy Creatinine Clearance (Chem N/A [facility] Platelet mean volume Auto (B ld) [Entitic vol]Ordered By: Jordi Mast on 12-13-2021 Platelet mean volume (Bld) [Entitic vol] 7.5 fL 6.3-10.7 [facility] Platelet poor plasma interna tional normalized ratio (INR) by coagulation assay (relatOrdered By: Jordi Mast on 12-13-2021 INR Coag (PPP) [Relative time] 1.1 {INR} [facility] Comment on above: INR Therapeutic Rang [...] 12-13-2021 Platelets (Bld) [#/Vol] 345 10*3/uL 150-450 [facility] RBC Auto (Bld) [#/Vol]Ordere d By: Jordi Mast on 12-13-2021 RBC (Bld) [#/Vol] 4.45 10*6/uL 3.60-5.00 [facility] Serum or plasma calcium cielo urement (mass/volume)Ordered By: Jordi Mast on 12-13-2021 Calcium [Mass/Vol] 9.2 mg/dL 8.2-10.2 [facility] Serum or plasma chloride ankita surement (moles/volume)Ordered By: Jordi Mast on 12-13-2021 Chloride [Moles/Vol] 102 mmol/L 95-114 [facility] Serum or plasma glucose cielo urement (mass/volume)Ordered By: Jordi Mast on 12-13-2021 Glucose [Mass/Vol] 90 mg/dL 70-100 [facility] Comment on above: ADA recommended refe rence range Random Glucose Reference Range is dependent on time and content of last meal. Glucose of more than 200 mg/dL in a nonstressed, ambulatory subject supports the diagnosis of Diabetes Mellitus. Serum or plasma potassium me asurement (moles/volume)Ordered By: Jordi Mast on 12-13-2021 Potassium [Moles/Vol] 3.6 mmol/L 3.5-5.1 [facility] Serum or plasma sodium measu rement (moles/volume)Ordered By: Jordi Mast on 12-13-2021 Sodium [Moles/Vol] 139 mmol/L 136-146 [facility] Serum or plasma total carbon dioxide measurement (moles/volume)Ordered By: Jordi Mast on 12-13-2021 CO2 [Moles/Vol] 27.4 mmol/L 22.0-30.0 [facility] Serum or plasma urea nitroge n measurement (mass/volume)Ordered By: Jordi Mast on 12-13-2021 Urea nitrogen [Mass/Vol] 13 mg/dL 9- [facility] MRI KNEE RT WO CONon 022 [...] by: ZENAIDA ENGLISH Date: 2021-12-12 17:04 Normal [facility] XR KUB 1 VIEWon 12-10-2021 XR [...] by: ZENAIDA ENGLISH Date: 2021-12-10 07:56 Normal [facility] COVID-19 SOFIAOrdered By: Jeison Mast on 11-27-2021 SARS-CoV+SARS-CoV-2 (COVID-19) Ag IA.rapid Ql (Resp) Negative Negative [facility] Comment on above: This is a duplicate Mony SARS Antigen (MILES) result to be used for statistical tracking purpose only. No Panel InformationOrdered By: Jordi Mast on 11-27-2021 SARS Antigen (LFIA) [facility] XR KUB 1 VIEWon 11-20-2021 XR KUB [...] by: ZENAIDA ENGLISH Date: 2021-11-20 18:35 Normal [facility] CULTURE URINEon 11-15-2021 CULTURE URINE Isolate [...] F Trimethoprim/Sulfam ethoxazole <=20 S F Normal [facility] Comment on above: Performed By: #### C VDTB #### [facility] Laboratory [address] [place] [address] Dr. Mikaela Caldwell CARDIAC EDGARDO 3-6on 2 CK [Catalytic activity/Vol] 54 U/L Normal 26-192 [facility] Comment on above: Performed By: #### C VDTBH #### [facility] [address] [place] [address] Dr. Mikaela Caldwell CK.MB [Mass/Vol] 2.05 ng/mL Normal <=3.60 [facility] Comment on above: Performed By: #### C VDTBH #### [facility] [address] [place] [address] [address] Mikaela Caldwell HSTROP 6.5 pg/mL Normal 4.0-51.3 [facility] Comment on above: Result Comment: CUT- OFF POINTS HAVE BEEN ESTABLISHED BASED ON THE FOURTH UNIVERSAL DEFINITIONS OF MYOCARDIAL INFARCTION. THE UPPER REFERENCE LIMIT (URL) OF TROPONIN, DEFINED THE 99TH PERCENTILE OF cTnI DISTRIBUTION IN A REFERENCE POPULATION, HAS BEEN CONFIRMED THE DECISION THRESHOLD FOR NC DIAGNOSIS. Performed By: #### C VDTBH #### [facility] [address] [place] [address] Dr. Mikaela Caldwell CK [Catalytic activity/Vol] 63 U/L Normal 26-192 [facility] Comment on above: Performed By: #### C MREP #### [facility] [address] [place] [address] Dr. Mikaela Caldwell CK.MB [Mass/Vol] 2.28 ng/mL Normal <=3.60 [facility] Comment on above: Performed By: #### C MREP #### [facility] [address] [place] [address] Dr. Mikaela Caldwell HSTROP 5.1 pg/mL Normal 4.0-51.3 [facility] Comment on above: Result Comment: CUT- OFF POINTS HAVE BEEN ESTABLISHED BASED ON THE FOURTH UNIVERSAL DEFINITIONS OF MYOCARDIAL INFARCTION. THE UPPER REFERENCE LIMIT (URL) OF TROPONIN, DEFINED THE 99TH PERCENTILE OF cTnI DISTRIBUTION IN A REFERENCE POPULATION, HAS BEEN CONFIRMED THE DECISION THRESHOLD FOR NC DIAGNOSIS. Performed By: #### C MREP #### [facility] [address] [place] [address] Dr. Mikaela Caldwell CARDIAC EDGARDO ADMITon 022 CK [Catalytic activity/Vol] 77 U/L Normal 26-192 [facility] Comment on above: Performed By: #### C MADM, LIPA, CMP #### [facility] [address] [place] [address] [address] Mikaela Caldwell CK.MB [Mass/Vol] 2.40 ng/mL Normal <=3.60 [facility] Comment on above: Performed By: #### C MADM, LIPA, CMP #### [facility] [address] [place] [address] [address] Mikaela Caldwell HSTROP 5.8 pg/mL Normal 4.0-51.3 [facility] Comment on above: Result Comment: CUT- OFF POINTS HAVE BEEN ESTABLISHED BASED ON THE FOURTH UNIVERSAL DEFINITIONS OF MYOCARDIAL INFARCTION. THE UPPER REFERENCE LIMIT (URL) OF TROPONIN, DEFINED THE 99TH PERCENTILE OF cTnI DISTRIBUTION IN A REFERENCE POPULATION, HAS BEEN CONFIRMED THE DECISION THRESHOLD FOR NC DIAGNOSIS. Performed By: #### C MADM, LIPA, CMP #### [facility] [address] [place] [address] Dr. Mikaela Caldwell JOYCE 29 ng/mL Normal 9-82 [facility] Comment on above: Performed By: #### C MADM, LIPA, CMP #### [facility] [address] [place] [address] Dr. Mikaela Caldwell CBC AUTO DIFFon 11-13-2021 BASO # 0.1 103/ul Normal 0.0-0.1 [facility] Comment on above: Performed By: #### C BC #### [facility] [address] [place] [address] [address] Mikaela Caldwell Basophils/100 WBC (Bld) 0.5 % Normal 0.2-2.0 [facility] Comment on above: Performed By: #### C BC #### [facility] [address] [place] [address] [address] Mikaela Caldwell EO # 0.3 103/ul Normal 0.0-0.7 [facility] Comment on above: Performed By: #### C BC #### [facility] [address] [address] [address] Mikaela Caldwell Eosinophils/100 WBC (Bld) 2.1 % Normal 0.9-7.0 [facility] Comment on above: Performed By: #### C BC #### [facility] [address] [place] [address] Dr. Mikaela Caldwell Erythrocyte distribution width (RBC) [Ratio] 13.2 % Normal 11.0-15.0 [facility] Comment on above: Performed By: #### C BC #### [facility] [address] [place] [address] Dr. Mikaela Caldwell Hematocrit (Bld) [Volume fraction] 40.9 % Normal 36.0-48.0 [facility] Comment on above: Performed By: #### C BC #### [facility] [address] [place] [address] Dr. Mikaela Caldwell Hemoglobin (Bld) [Mass/Vol] 13.1 g/dL Normal 12.0-16.0 [facility] Comment on above: Performed By: #### C BC #### [facility] [address] [place] [address] Dr. Mikaela Caldwell IG # 0.07 10e3/ul Critically high 0.00-0.03 [facility] Comment on above: Performed By: #### C BC #### [facility] [address] [place] [address] Dr. Mikaela Caldwell IG % 0.5 % Normal 0.0-0.5 [facility] Comment on above: Performed By: #### C BC #### [facility] [address] [place] [address] Dr. Mikaela Caldwell LYMPH # 1.8 103/ul Normal 1.2-3.8 [facility] Comment on above: Performed By: #### C BC #### [facility] [address] [place] [address] Dr. Mikaela Caldwell Lymphocytes/100 WBC (Bld) 12.5 % Critically low 20.5-60.0 [facility] Comment on above: Performed By: #### C BC #### [facility] [address] [place] [address] Dr. Mikaela Caldwell MANUAL DIFF REQ NO Normal [facility] Comment on above: Performed By: #### C BC #### [facility] [address] [place] [address] Dr. Mikaela Caldwell MCH (RBC) [Entitic mass] 29.2 pg Normal 26.7-34.0 [facility] Comment on above: Performed By: #### C BC #### [facility] [address] [address] [address] Mikaela Caldwell MCHC (RBC) [Mass/Vol] 32.0 g/dL Normal 29.9-35.2 [facility] Comment on above: Performed By: #### C BC #### [facility] [address] [address] [address] Mikaela Caldwell MCV (RBC) [Entitic vol] 91.1 fL Normal 81.0-99.0 [facility] Comment on above: Performed By: #### C BC #### [facility] [address] [place] [address] Dr. Mikaela Caldwell MONO # 0.7 103/ul Normal 0.3-0.8 [facility] Comment on above: Performed By: #### C BC #### [facility] [address] [place] [address] Dr. Mikaela Caldwell Monocytes/100 WBC (Bld) 5.1 % Normal 1.7-12.0 [facility] Comment on above: Performed By: #### C BC #### [facility] [address] [place] [address] Dr. Mikaela Caldwell NEUT # 11.1 103/ul Critically high 1.4-6.5 [facility] Comment on above: Performed By: #### C BC #### [facility] [address] [place] [address] Dr. Mikaela Caldwell Neutrophils/100 WBC (Bld) 79.3 % Critically high 43.0-75.0 [facility] Comment on above: Performed By: #### C BC #### [facility] [address] [place] [address] Dr. Mikaela Caldwell Platelet mean volume (Bld) [Entitic vol] 9.2 fL Critically low 9.5-13.5 [facility] Comment on above: Performed By: #### C BC #### [facility] [address] [place] [address] Dr. Mikaela Caldwell PLT 420 103/ul Normal 150-450 [facility] Comment on above: Performed By: #### C BC #### [facility] [address] [place], [place] [address] Dr. Mikaela Caldwell RBC 4.49 106/ul Normal 4.20-5.40 [facility] Comment on above: Performed By: #### C BC #### [facility] [address] [place], [place] [address] Dr. Mikaela Caldwell WBC 14.0 103/ul Critically high 4.0-11.0 [facility] Comment on above: Performed By: #### C BC #### [facility] [address] [place], [place] [address] ABD/PELVIS WO CONon [...] GEORGE SAID Date: 2021-11-13 02:57 Normal [facility]26 SARS-CoV-2 (COVID-19) RNA ISABELLA+probe Ql (Unsp spec) Not detected Normal NOT DETECTED [facility] Comment on above: Result Comment: [...] for this test is supported by the Political Science Research Assistant of Health and Human Service's declaration that [...] used). Performed By: #### C VDTB #### [facility] [address] [place] [address] Dr. Mikaela Caldwell ER URINE PROFILEon 2 Bilirubin Ql (U) Negative Normal NEGATIVE [facility] Comment on above: Performed By: #### AUBREE ROGERS #### [facility] [address] [place] [address] Dr. Mikaela Caldwell Clarity (U) CLEAR Normal CLEAR [facility] Comment on above: Performed By: #### KENDELL ROGERSRO #### [facility] [address] [place] [address] Dr. Mikaela Caldwell Color (U) LT. YELLOW Normal YELLOW [facility] Comment on above: Performed By: #### KENDELL ROGERSRO #### [facility] [address] [place] [address] Dr. Mikaela MCMANUS A micrscopic examination will be performed if indicated. Normal [facility] Comment on above: Performed By: #### Jimy ROSAS UMICRO #### [facility] [address] [place] [address] Dr. Mikaela Caldwell Glucose Ql (U) Negative Normal NEGATIVE [facility] Comment on above: Performed By: #### Jimy ROSAS UMICRO #### [facility] [address] [place] [address] Dr. Mikaela Caldwell Hemoglobin Ql (U) TRACE-INTACT Abnormal NEGATIVE [facility] Comment on above: Performed By: #### Jimy ROSAS UMICRO #### [facility] [address] [place] [address] Dr. Mikaela Caldwell Ketones Ql (U) Negative Normal NEGATIVE [facility] Comment on above: Performed By: #### Jimy ROSAS UMICRO #### [facility] [address] [place] [address] Dr. Mikaela Caldwell LEUKOCYTES TRACE Abnormal NEGATIVE [facility] Comment on above: Performed By: #### Jimy ROSAS UMICRO #### [facility] [address] [place] [address] Dr. Mikaela Caldwell Nitrite Ql (U) Positive Abnormal NEGATIVE [facility] Comment on above: Performed By: #### Jimy ROSAS UMICRO #### [facility] [address] [place] [address] Dr. Mikaela Caldwell pH (U) 6.5 [pH] Normal 5-9 [facility] Comment on above: Performed By: #### Jimy ROSAS UMICRO #### [facility] [address] [place] [address] Dr. Mikaela Caldwell SPEC GRAVITY 1.020 Normal 1.005-<=1.025 [facility] Comment on above: Performed By: #### Jimy ROSAS UMICRO #### [facility] [address] [place] [address] Dr. Mikaela Caldwell UA PROTEIN Negative Normal NEGATIVE/ TRACE [facility] Comment on above: Performed By: #### Jimy ROSAS UMICRO #### [facility] [address] [place] [address] Dr. Mikaela Caldwell UR MICRO IND INDICATED Normal [facility] Comment on above: Performed By: #### Jimy ROSAS UMICRO #### [facility] [address] [place] [address] Dr. Mikaela Caldwell Urobilinogen Qn (U) 0.2 {Lisa'U}/dL Normal 0.2 - 1. 0 [facility] Comment on above: Performed By: #### E AUBREE ROSAS #### [facility] [address] [place] [address] [address] Mikaela Caldwell LACTATE/LACTIC ACIDon 2021 Lactate [Moles/Vol] 1.2 mmol/L Normal 0.4-1.9 [facility] Comment on above: Performed By: #### L ACT ####[facility] [id number] [address]Dr. Mikaela Caldwell LIPASEon 11-13-2021 Lipase [Catalytic activity/Vol] 97.0 U/L Normal 73.0-393.0 [facility] Comment on above: Performed By: #### C MADM LIPA, CMP #### [facility] [address] [address] [address] Mikaela Caldwell PROF 14(COMP METB)on 022 Albumin [Mass/Vol] 3.5 g/dL Normal 3.4-5.0 [facility] Comment on above: Performed By: #### C CANDELARIAM LIPA, CMP #### [facility] [address] [address] [address] Mikaela Caldwell Albumin/Globulin [Mass ratio] 0.9 {ratio} Normal [facility] Comment on above: Performed By: #### C MADM, LIPA, CMP #### [facility] [address] [address] [address] Mikaela Cladwell ALP [Catalytic activity/Vol] 161 U/L Critically high 46-116 [facility] Comment on above: Performed By: #### C MADM, LIPA, CMP #### [facility] [address] [address] [address] Mikaela Caldwell ALT [Catalytic activity/Vol] 30 U/L Normal 14-59 [facility] Comment on above: Performed By: #### C MADM, LIPA, CMP #### [facility] [address] [address] [address] Mikaela Caldwell Anion gap [Moles/Vol] 10.4 mmol/L Normal [facility] Comment on above: Performed By: #### C MADM, LIPA, CMP #### [facility] [address] [address] [address] Mikalea Caldwell AST [Catalytic activity/Vol] 17 U/L Normal 15-37 [facility] Comment on above: Performed By: #### C MADM, LIPA, CMP #### [facility] [address] [address] [address] Mikaela Caldwell Bilirubin [Mass/Vol] 0.3 mg/dL Normal 0.2-1.0 [facility] Comment on above: Performed By: #### C MADM, LIPA, CMP #### [facility] [address] [address] [address] Mikaela Caldwell Calcium [Mass/Vol] 8.8 mg/dL Normal 8.5-10.1 [facility] Comment on above: Performed By: #### C MADM, LIPA, CMP #### [facility] [address] [address] [address] Mikaela Caldwell Chloride [Moles/Vol] 106 mmol/L Normal 98-107 [facility] Comment on above: Performed By: #### C MADM, LIPA, CMP #### [facility] [address] [address] [address] Mikaela Caldwell CO2 [Moles/Vol] 30.1 mmol/L Normal 21.0-32.0 [facility] Comment on above: Performed By: #### C MADM, LIPA, CMP #### [facility] [address] [address] [address] Mikaela Caldwell Creatinine [Mass/Vol] 1.02 mg/dL Normal 0.55-1.02 [facility] Comment on above: Performed By: #### C MADM, LIPA, CMP #### [facility] [address] [address] [address] Mikaela Caldwell EGFR-AF GUATEMALAN >60 Normal >=60 [facility] Comment on above: Performed By: #### C MADM, LIPA, CMP #### [facility] [address] [address] [address] Mikaela Caldwell EGFR-NON AF GUATEMALAN 57 mL/min/1.73m2 Critically low >=60 [facility] Comment on above: Performed By: #### C MADM, LIPA, CMP #### [facility] [address] [address] [address] Mikaela Caldwell Globulin (S) [Mass/Vol] 4.0 g/dL Normal [facility] Comment on above: Performed By: #### C MADMarii LIPA, CMP #### [facility] [address] [place] [address] Dr. Mikaela Caldwell Glucose [Mass/Vol] 113 mg/dL Critically high 74-106 [facility] Comment on above: Performed By: #### C ANIL LIPA, CMP #### [facility] [address] [place] [address] Dr. Mikaela Caldwell Potassium [Moles/Vol] 3.5 mmol/L Normal 3.5-5.1 [facility] Comment on above: Performed By: #### C ANIL LIPA, CMP #### [facility] [address] [address] [address] Mikaela Caldwell Protein [Mass/Vol] 7.5 g/dL Normal 6.4-8.2 [facility] Comment on above: Performed By: #### C MADM, LIPA, CMP #### [facility] [address] [place] [address] Dr. Mikaela Caldwell Sodium [Moles/Vol] 143 mmol/L Normal 136-145 [facility] Comment on above: Performed By: #### C MADM, LIPA, CMP #### [facility] [address] [place] [address] Dr. Mikaela Caldwell Urea nitrogen [Mass/Vol] 18.0 mg/dL Normal 7.0-18.0 [facility] Comment on above: Performed By: #### C MADM, LIPA, CMP #### [facility] [address] [place] [address] Dr. Mikaela Caldwell Urea nitrogen/Creatinine [Mass ratio] 17.6 mg/mg Normal [facility] Comment on above: Performed By: #### C RONEN MA, CMP #### [facility] [address] [place] [address] Dr. Mikaela Caldwell URINE MICROSCOPIC ONLYon BACTERIA TRACE Abnormal NONE SEEN [facility] Comment on above: Performed By: #### Jimy ROSAS UMICRO #### [facility] [address] [place] [address] Dr. Mikaela Caldwell Bacteria identified Cx Nom (U) INDICATED Normal [facility] Comment on above: Performed By: #### Jimy ROSAS UMICRO #### [facility] [address] [place] [address] Dr. Mikaela Caldwell CAST NONE SEEN Normal NONE SEEN [facility] Comment on above: Performed By: #### Jimy ROSAS UMICRO #### [facility] [address] [place] [address] Dr. Mikaela Caldwell Crystals LM Nom (Urine sed) NONE SEEN Normal NONE SEEN [facility] Comment on above: Performed By: #### Jimy ROSAS UMICRO #### [facility] [address] [place] [address] Dr. Mikaela Caldwell Epithelial cells LM Ql (Urine sed) NONE SEEN Normal NONE SEEN /RARE [facility] Comment on above: Performed By: #### Jimy ROSAS UMICRO #### [facility] [address] [place] [address] Dr. Mikaela Caldwell MUCOUS NONE SEEN Normal NONE SEEN [facility] Comment on above: Performed By: #### Jimy ROSAS UMICRO #### [facility] [address] [place] [address] Dr. Mikaela Caldwell RBC 0-2 Normal 0-2 [facility] Comment on above: Performed By: #### Jimy ROSAS UMICRO #### [facility] [address] [place] [address] Dr. Mikaela Caldwell WBC 5-10 Abnormal NONE SEEN [facility] Comment on above: Performed By: #### E AUBREE ROSAS #### [facility] [address] [address] [address] Mikaela Caldwell XR CHEST 2 Von [...] GEORGE LLANES Date: 2021-11-13 02:46 Normal [facility] Vital Signs Date Time Vital Sign Value Performing Clinician Facility 12-19-2022 09:45-0400 Body height 165.1 cm Shubham Chase Other [facility] 12-19-2022 09:45-0400 Body mass index (BMI) [Ratio] 39.27 kg/m2 Shubham Rodrigues Other [facility] 12-19-2022 09:45-0400 Body weight 107.05 kg Shubham Rodrigues Other [facility] Other 07-22-2022 09:50-0400 Blood Pressure Location Jordi MAST [facility] 07-22-2022 09:50-0400 Diastolic blood pressure 81 mm[Hg] Jordi MAST [facility] 07-22-2022 09:50-0400 Heart rate 72 /min Jordi MAST [facility] 07-22-2022 09:50-0400 Respiratory rate 16 /min Jordi MAST [facility] 07-22-2022 09:50-0400 Systolic blood pressure 129 mm[Hg] Jordi MAST [facility] 12-21-2021 17:00-0400 Diastolic blood pressure 82 mm[Hg] MD Jordi Mast Work Phone: [facility] 12-21-2021 17:00-0400 Heart rate 79 /min MD Jordi Mast Work Phone: [facility] 12-21-2021 17:00-0400 Respiratory rate 16 /min MD Jordi Mast Work Phone: [facility] 12-21-2021 17:00-0400 SaO2% (BldA) [Mass fraction] 100 % MD Jordi Mast Work Phone: [facility] 12-21-2021 17:00-0400 Systolic blood pressure 118 mm[Hg] MD Jordi Mast Work Phone: [facility] 12-21-2021 15:35-0400 Body weight 118 mg MD Jordi Mast Work Phone: [facility] 12-21-2021 14:57-0400 Body height 165.1 cm MD Jordi Mast Work Phone: [facility] 12-21-2021 14:57-0400 Body mass index (BMI) [Ratio] 38.5 kg/m2 MD Jordi Mast Work Phone: [facility] 12-21-2021 14:57-0400 Body weight 105 kg MD Jordi Mast Work Phone: [facility] 12-21-2021 12:56-0400 Body temperature 98.4 [degF] MD Jordi Mast Work Phone: [facility] 11-29-2021 14:51-0400 Diastolic blood pressure 84 mm[Hg] MD Jordi Mast Work Phone: [facility] 11-29-2021 14:51-0400 Heart rate 80 /min MD Jordi Mast Work Phone: [facility] 11-29-2021 14:51-0400 Respiratory rate 16 /min MD Jordi Mast Work Phone: [facility] 11-29-2021 14:51-0400 SaO2% (BldA) [Mass fraction] 98 % MD Jordi Mast Work Phone: [facility] 11-29-2021 14:51-0400 Systolic blood pressure 117 mm[Hg] MD Jordi Mast Work Phone: [facility] 11-29-2021 12:45-0400 Body height 165.1 cm MD Jordi Mast Work Phone: [facility] 11-29-2021 12:45-0400 Body mass index (BMI) [Ratio] 37.4 kg/m2 MD Jordi Mast Work Phone: [facility] 11-29-2021 12:45-0400 Body weight 102.05 kg MD Jordi Mast Work Phone: [facility] 11-29-2021 12:24-0400 Body temperature 97.9 [degF] MD Jordi Mast Work Phone: [facility] Encounters Encounter Date Encounter Type Care Provider Facility Start: 02-02-2024 ambulatory Jordi MAST Facility :[facility] Start: 05-12-2023 End: 05-13-2023 ambulatory [facility] Start: 05-12-2023 Encounter for gynecological examination (general) (routine) without abnormal findings [facility] Start: 02-10-2023 End: 02-10-2023 ambulatory Shubham Rodrigues Other [facility] Other Start: 02-10-2023 Postop follow up vis it related to original px Shubham Rodrigues [facility] Start: 02-10-2023 Telephone encounter Shubham Olexa [facility] Start: 01-27-2023 End: 01-28-2023 ambulatory Jordi MAST Facility:[facility] Start: 01-07-2023 End: 01-07-2023 ambulatory Shubham Olexa Other [facility] Other Start: 01-07-2023 Postop follow up vis it related to original px Shubham Olexa [facility] Start: 01-01-2023 End: 01-01-2023 ambulatory Sue Win Facility:[facility] Start: 12-31-2022 End: 12-31-2022 ambulatory Shubham Olexa Other [facility] Other Start: 12-31-2022 Telephone encounter Shubham Bullockxa [facility] Start: 12-25-2022 End: 12-25-2022 ambulatory Sue Win Facility:[facility] Start: 12-25-2022 End: 12-25-2022 ambulatory MD Sue Win Work Phone: [facility] Work Phone: Start: 12-25-2022 End: 12-25-2022 Patient encounter procedure MD Sue Win Work Phone: [facility] Work Phone: Start: 12-19-2022 End: 12-19-2022 ambulatory Shubham Olexa Other [facility] Other Start: 12-19-2022 Office outpatient vi sit 25 minutes Shubham Olexa [facility] Start: 11-25-2022 End: 11-25-2022 ambulatory Shubham Olexa Other [facility] Other Start: 11-25-2022 Office outpatient ne w 45 minutes Shubham Olexa [facility] Start: 08-12-2022 End: 08-13-[address] JORDI MAST Facility: Start: 07-22-2022 End: 07-23-2022 ambulatory Jordi MAST Facility:[facility] Start: 07-22-2022 End: 07-22-2022 Patient encounter procedure Jordi AMST [facility] Start: 07-18-2022 End: 07-19-[address] JORDI MAST Facility:[facility] Start: 05-15-2022 End: 05-16-[address] HARVEY BURCH Facility:[facility] Start: 03-27-2022 End: 03-28-[address] SUE WIN . Facility:[facility] Start: 12-21-2021 End: 12-21-2021 Admission to same day surgery center MD Jordi Mast Work Phone: [facility] [place] [facility] [place] Start: 12-19-2021 End: 12-19-2021 Patient encounter procedure MD Jordi Mast Work Phone: [facility] Start: 12-13-2021 End: 12-13-2021 Patient encounter procedure MD Jordi Mast Work Phone: [facility] Start: 12-12-2021 End: 12-13-[address] SUE WIN . Facility:[facility] Start: 12-10-2021 End: 12-11-[address] JORDI MAST Facility:[facility] Start: 11-29-2021 End: 11-29-2021 Admission to same day surgery center MD Jordi Mast Work Phone: [facility] [place] Start: 11-27-2021 End: 11-27-2021 Patient encounter procedure MD Jordi Mast Work Phone: [facility] Start: 11-21-2021 End: 11-21-2021 Patient encounter procedure Jordi MAST [facility] Start: 11-20-2021 End: 11-21-[address] JORDI MAST Facility:[facility] Start: 11-13-2021 End: 11-13-[address] SUE WIN . Facility:[facility] Start: 10-03-2021 End: 10-04-[address] SUE WIN . Facility:[facility] Start: 03-05-2021 End: 03-05-2021 Patient encounter procedure Sue Win MD Work Phone: [facility] Start: 03-05-2021 End: 03-05-2021 Subsequent hospital visit by physician Sue Win MD Work Phone: [facility] Comment on above: Vaginal discharge; Women's annual routine gynecological examination Start: 02-25-2019 End: 02-25-2019 Subsequent hospital visit by physician [facility] Win [facility] Comment on above: Women's annual routi [...] ant neoplasm of breast Breast cancer screen [facility] Start: 03-13-2022 End: 03-13-2022 Patient encounter procedure 03/13/2022 Office Visit Obstetrics and Gynecology Rosaura Yang MD [address] [place] [address] [place] [address] [facility] Start: 02-25-2022 Screening for malign ant neoplasm of cervix [facility] Start: 12-21-2021 End: 12-21-2021 [facility] Work Phone: Start: 12-21-2021 Cystoscopy OR Cysto/Retro/Stent/Stone /Holmium Laser (Left) [facility] Start: 12-21-2021 Diagnostic radiograp hy of abdomen XR [facility] Start: 12-21-2021 End: 12-21-2021 Admission to same day surgery center Departed Surgical Day Care [facility] [place] Start: 12-21-2021 Diagnostic radiograp hy of abdomen XR [facility] Start: 12-19-2021 End: 12-19-2021 Patient encounter procedure Departed Clinical [facility] Start: 12-13-2021 End: 12-13-2021 Patient encounter procedure Departed Clinical [facility] Start: 11-29-2021 [facility] Work Phone: Start: 11-29-2021 [facility] Work Phone: Start: 02-23-2021 Cervical cancer screen Cervical canc er screen [facility]- [place], [place] Start: 02-11-2021 COVID-19 Vaccine (3 - Pfizer booster) COVID-19 Vaccine (3 - Pfizer booster) [facility] Start: 02-28-2020 Breast cancer screen Breast cancer s creen [place], [place] Start: 03-27-2019 Influenza vaccination Flu vaccine (# 1) [place], [place] Comment on above: Postponed from 12/27 (Not Indicated) Start: 03-25-2019 Diabetes screen Diabetes screen [place], [place] Comment on above: Postponed from 07/08 (Not Indicated) Start: 03-25-2019 DTaP/Tdap/Td vaccine (1 - Tdap) DTaP/Tdap/Td vaccine (1 - Tdap) [place], [place] Comment on above: Postponed from 07/08 (Patient Refused) Start: 03-25-2019 HIV screen HIV screen [place], [place] Comment on above: Postponed from 07/08 (Patient Refused) Start: 03-25-2019 Lipid screen Lipid screen [place], [place] Comment on above: Postponed from 07/08 (Not Indicated) Start: 2018 Colon cancer screen colonoscopy Colon cancer screen colonoscopy [place], [place] Start: 2018 Shingles Vaccine (1 of 2) Shingles Vaccine (1 of 2) [facility] Start: 2013 Screening for malign ant neoplasm of colon Colon cancer screen colonoscopy [facility] Start: 2008 Diabetes screen Diabetes screen [facility] Start: 2008 Lipid panel Lipid screen [facility] Start: 1998 Screening for malign ant neoplasm of cervix HPV (without or with Pap) [facility] Start: 07-09-1987 DTaP/Tdap/Td vaccine (1 - Tdap) DTaP/Tdap/Td vaccine (1 - Tdap) [facility] Start: 07-09-1983 HIV screening HIV screen [facility] Start: 1968 Hepatitis C screening Hepatitis C sc reen [facility] End: 03-05-2021 Culture, Genital [facility] Work Phone: Comment on above: 1 Occurrences starti ng 03/05/2021 until 03/05/2021 End: 02-25-2019 Cytopathology procedure, preparation of smear, genital source PAP SMEAR Lab Routine Women's Annual Routine Gynecological Examination 1 Occurrences starting 02/25/2019 until 02/25/2019 [facility] [place], [place] Comment on above: 1 Occurrences starti ng 02/25/2019 until 02/25/2019 End: 03-05-2021 Cytopathology procedure, preparation of smear, genital source PAP SMEAR Lab Routine Women's annual routine gynecological examination 1 Occurrences starting 03/05/2021 until 03/05/2021 [facility] Work Phone: Comment on above: 1 Occurrences starti ng 03/05/2021 until 03/05/2021 Patient Education Cystoscopy (DC) [facility] Work Phone: Patient referral [facility] Work Phone: Immunizations Immunization Date Immunization Notes Care Provider Fa pancho 09-29-2021 COVID-19 mRNA-1273 (Moderna) MD Jordi Mast Work Phone: [facility] 02-08-2021 Influenza, injectabl e, Madin Shock Canine Kidney, preservative free, quadrivalent Seu Win MD Work Phone: [facility] Work Phone: 08-12-2020 COVID-19 mRNA-1273 (Moderna) MD Jordi Mast Work Phone: [facility] 08-12-2020 COVID-19, Pfizer, PF , 30mcg/0.3mL Sue Win MD Work Phone: [facility] 07-17-2020 SARS-CoV-2 (COVID-19 ) mRNA-1273 vaccine Jordi MAST [facility] 07-15-2020 COVID-19 mRNA-1273 (Moderna) MD Jordi Mast Work Phone: [facility] 07-15-2020 COVID-19, Pfizer, PF , 30mcg/0.3mL Sue Win MD Work Phone: [facility] Work Phone: 05-03-2020 Influenza, injectabl e, Madin Shock Canine Kidney, preservative free, quadrivalent Sue Win MD Work Phone: [employer] Work Phone: 02-08-2020 pneumococcal conjuga te vaccine, 13 valent Sue Win MD Work Phone: [facility] Work Phone: Payers Date Payer Category Payer Self-pay 2019 Unknown [employer] [address] xxxxxxxx 2019-Present [phone] [address] [place] [address] xxxxxxxx [id number] 1968 Unknown [id number] 1968 Unknown [id number] 2.16.840.1.750736.3.579.2.593 1968 Unknown [id number] .16.840.1.438452.3.579.2.593 1968 Unknown [id number] .16.840.1.652264.3.579.2.593 1968 Unknown [id number] .[id number] 1968 Unknown [id number] 2.16.840.1.431533.3.579.2.593 1968 Unknown [id number] 2.16.840.1.547696.3.579.2.593 1968 Unknown [id number] 2.16.840.1.889211.3.579.2.593 1968 Unknown [id number] 2.16.840.1.268875.3.579.2.593 1968 Unknown [id number] 2.16.840.1.551886.3.579.2.727 1968 Unknown [id number] 2.16.840.1.295007.3.579.2.727 1968 Unknown [id number] 2.16.840.1.212211.3.579.2.727 1968 Unknown [id number] 2.16.840.1.957190.3.579.2.173 1959 Unknown [id number] 1.2.840.334225.1.13.239.2.7.3 .[id number] Unknown [id number] 2.16.840.1.057090.3.579.2.531 Unknown [id number] 2.16.840.1.567214.3.579.2.531 Social History Date Type Detail Facility Start: 02-25-2019 End: 12-25-2022 Tobacco [facility] status NHIS [facility] [place] Start: 02-25-2019 Alcohol intake Yes [facility] [place], [place] Start: 1970 Sex Assigned At Not on file [facility] [place] Start: 07-30-2012 Tobacco use and exposure Smokeless tobacco non-user [email or web address] Phone: Start: 03-05-2021 Alcohol intake Current drinke r of alcohol (finding) [email or web address] Phone: Tobacco smoking status Never [facility] [employer] Start: 1970 Sex Assigned At Female F [facility] Goals Date Patient Goal Desired Activity /State Functional Status Date Assessment Result Facility 07-22-2022 Functional Status N/A [facility] 11-21-2021 Functional Status N/A [facility] Notes 10-03-2021 to 02-10-2023 Note Date [...] Other specified postprocedural states (ICD-10 - Z98.890) [facility] Other 09-12-2023 Evaluation note* Encounter Date Diagnosis [...] Other specified postprocedural states (ICD-10 - Z98.890) [facility] Other 09-05-2023 Evaluation note* Encounter Date Diagnosis Assessment Notes Treatment Notes Treatment Clinical Notes Dec, Other specified postprocedural states (ICD-10 - Z98.890) [facility] Other 08-24-2023 Evaluation note* Encounter Date Diagnosis [...] right knee, subsequent encounter (ICD-10 - S83.241D) [facility] Other 07-31-2023 Evaluation note* Encounter Date Diagnosis [...] Pain in left knee (ICD-10 - M25.562) [facility] Other 03-27-2023 Hospital Discharge instructions Patient Education 07/22/2022 10:14:42 Kidney Stones, Lbtk-xa-Mfhp Kidney Stones Kidney stones are rock-like masses [...] Follow these instructions at home: Medicines Take fknp-eug-vwdmsav and prescription medicines only as told by [...] 09/30/2008 Document Revised: 08/31/2019 Document Reviewed: 08/31/2019 [employer] Patient Education 2019 [employer] Follow Up Care 12/26/2021 13:33:59 With:MANNIE ARREGUIN, Jordi Mckeon, URL Address: [facility] [address] [place], [place] [id number]- When:01/22/2023 Comments:ANNAMARIE [facility] [place] [id number] Hospital Discharge instructions Patient Education 11/21/2021 12:49:44 Kidney Stones, Wcxb-tj-Cbgf Kidney Stones Kidney stones are rock-like masses [...] Follow these instructions at home: Medicines Take byfv-gvj-dclycus and prescription medicines only as told by [...] 09/30/2008 Document Revised: 08/31/2019 Document Reviewed: 08/31/2019 [employer] Patient Education 2020 [employer]. Follow Up Care 11/14/2021 08:29:10 With:MANNIE ARREGUIN, Jordi P, URL Address: [address] [place] [address] When: Unknown [facility] 07-19-2022 NoteOPERATIVE NOTE OPERATION DATE: 11/13/2021 [...] placed per urethra. A well lubricated, 22 Slovenian cystourethroscope was passed into the bladder. Moderately tight at the bladder neck. Once into the bladder, teran endoscopy reveals no tumors or stones or diverticula. She does have a moderate cystocele present. Left retrograde pyelogram was then performed utilizing a 6 Slovenian open ended ureteral catheter. The distal ureter [...] and then over the wire a 4.8 Slovenian, 22-30 cm Microvasive double J stent was [...] procedure well. [facility] and then back to PACU in satisfactory [...] the plan. CC: Sue Win M.D. : [facility] Signed and Approved by: DR JORDI MAST 11/29/2021 08:56:00[facility]06-08-2022 NotePROCEDURE: XR KNEE RT 4V or > COMPARISON: None. HISTORY: Pain in right knee FINDINGS: BONES:No acute fracture or dislocation. Mild osteoarthritis with marginal osteophyte formation SOFT TISSUES:Negative. No visible soft tissue swelling. EFFUSION:None visible. OTHER: Negative. IMPRESSION: Mild osteoarthritis Electronically authenticated by: KODY GARRISON Date: 2021-10-03 07:59[facility] No data available for this section [facility] Evaluation + Plan note Future Appointments Appointment Date:01/27/2023 08:00:00 AM Scheduled Provider:Jordi MAST MD Location:[facility] Appointment Type:URO Office Visit [facility] Evaluation note* Diagnosis Vaginal discharge Leukorrhea, not specified as infective Women's annual routine gynecological examination documented in this encounter [facility] Work Phone: evaluation noteNo assessment information available [facility] Work Phone: Evaluation noteNo InformationNortLE[facility] J C Lads Other History general Narrative - Reported* Type Description Date Medical History GERD Medical History Hypothyroidism [facility] Other History general Narrative - Reported* Type Description Date Medical History GERD Medical History Hypothyroidism Surgical History 1. LEFT knee arthros copy with partial medial meniscectomy 2. Chondral debridement medial femoral condyle, medial tibial plateau, medial patellar facet [facility] J C Lads Other Progress note No data available for this section [facility] [place] Assessments Diagnosis Women's annual routine gynecological examination Advance Directives No Advanced Directives Records FoundDocuments on File Type Date Recorded Patient Animal Anatomy Teacher Expl anation Advance Directives and Living Will Power of Bunch Breaker Documents on File Type Date Recorded Patient Animal Anatomy Teacher Expl anation ACP-Advance Directive ACP-Power of Bunch Breaker Advance Directive Response Recorded Date/ Time Advance [...] Care Teams (unrecognized sec tion and content) Pbx Repairer Relationship Specialty Start Date End Date Sue Win MD [address] [place] [address] PCP - General Family Medicine 01/16/16 Team [...] section and content) DATE CREATED AUTHOR 08/18/2022 [facility] DATE CREATED AUTHOR AUTHOR'S ORGANIZ ATION 01/31/2023 [facility] DATE CREATED AUTHOR AUTHOR'S ORGANIZ ATION 02/07/2023 [facility] DATE CREATED AUTHOR AUTHOR'S ORGANIZ ATION [...] BE BASED ON THE PRIMARY CLINICAL RECORDS. [employer] [facility] provides no warranty or guarantee of the accuracy or completeness of information in this document.
[2023-09-03 15:46] LABS: Occult Blood Negative
== END 2023-09-03 07:37 | disposition home or self-care (01) ==
LOC: LAB 07:36
PROVIDERS: PCP Family Medicine; Visit Provider Family Medicine
DX: Z00.00 Encounter for general adult medical examination without abnormal findings (principal)
CPT/HCPCS: G0328

== ENCOUNTER 2023-09-30 07:10 | Outpatient (OUT) | payer OTHER, SELFPAY ==
--- OUTSIDE RECORDS SUMMARY | 2023-09-30 07:14 | XMS_ITS | CCD ---
Author Organization [facility] Care Team Providers Care Building Associate Name Role Phone Sue Win Primary Care Provider Sue Win Primary Care Physician MD Jordi Mast Attending Provider MD Sue Win Primary Care Provider [phone] YAIMA ., DR ROGERS Consulting Unavailable HOY [...] Attending Unavailable TIMMIS, DR GABRIEL Admitting Unavailable BLUE RIDGE, DR KODY Pappas Consulting Unavailable HOY ., DR ROGERS Consulting Unavailable HOY ., DR ROGERS Attending Unavailable HOY ., DR ROGERS Admitting Unavailable HOY ., DR ROGERS Primary Care Unavailable MANNIE, DR JORDI Mckeon Consulting Unavailable MADDY LAGUNA Consulting Unavailable AGUBOSIM, DEYANIRA Consulting Unavailable SHRADDHA, BINOR Consulting Unavailable MANNIE, DR JORDI Mckeon Consulting Unavailable YAIMA ., DR ROGERS Primary Care Unavailable MANNIE, DR JORDI Mckeon Attending Unavailable MANNIE, DR JORDI Mckeon Admitting Unavailable ZIEBOFELIA, DR ZENAIDA Martin Consulting Unavailable MANNIE, DR JORDI Mckeon Consulting Unavailable YAIMA ., DR ROGERS Primary Care Unavailable MANNIE, DR JORDI Mckeon Attending Unavailable MANNIE, DR JORDI Mckeon Admitting Unavailable HOY ., DR ROGERS Consulting Unavailable HOY ., DR ROGERS Primary Care Unavailable HOY ., DR ROGERS Attending Unavailable YAIMA ., DR ROGERS Admitting Unavailable BLUE RIDGE, DR KODY Pappas Consulting Unavailable MANNIE, DR JORDI Mckeon Consulting Unavailable YAIMA Thakkar, DR ROGERS Primary Care Unavailable MANNIE, DR JORDI Mckeon Attending Unavailable MANNIE, DR JORDI Mckeon Admitting Unavailable DAHIANA, DR ZENAIDA Martin Consulting Unavailable COOK, DR JORDI Mckeon Consulting Unavailable YAIMA ., DR ROGERS Primary Care Unavailable MANNIE, DR JORDI Mckeon Attending Unavailable MANNIE, DR JORDI Mckeon Admitting Unavailable DAHIANA, DR ZENAIDA Martin Consulting Unavailable Chase Shubham Unavailable MD Sue Win Primary Care Provider [phone] MD Shubham Rodrigues Attending Provider [phone] Jordi MAST Attending Unavailable MANNIE, Jordi Mckeon Attending Unavailable MANNIE, Jordi Mckeon Attending Unavailable Sue Win Primary Care Unavailable Chase, Shubham Admitting Unavailable Chase, Shubham Attending Unavailable Sue Win Primary Care Unavailable Olekarri, Shubham Admitting Unavailable Olekarri, Shubham Attending Unavailable SUE WIN Primary Care Unavailable ROSAURA YANG Referring Unavailable Allergies Allergy Classification Reported Allergen(s) Allergy Type Date of Onset Reaction(s) Facility (1 source) No Known Medication Allergies; Translations: [No Known Medication Allergies] Propensity to adverse reactions (disorder) [facility] Repository Medications Current Medications Medication Drug Class(es) Dates Sig (Normalized) Sig (Original) acetaminophen 325 mg / HYDROcodone bitartrate 5 mg oral tablet (10 sources) Opioid Agonist Start: 12-31-2022 take 1 tablet by mouth every four hours as needed for pain HYDROcodone-Aceta minophen 5-325 MG 1 tablet as needed for pain Orally up to every 4 hrs for 5 days PB: [id number] Dec, Active Start: 11-29-2021 End: 12-13-2021 take 1 tablet by mouth every four to six hours Hydrocodone-Acetaminophen Discontinued 1 TAB PO EVERY 4-6 HOURS 01 28November 29, 2021 December 13, 2021 2:25pm Claritin-D [...] 11-16-2021 Episodic Other aftercare (1 source) Other fpc (current) drug therapy; Translations: [OTH TECHNICIAN AUTOMATIC CURRENT DRUG THERAPY] Onset: 11-16-2021 Episodic Other [...] stain.thin prep Doc (Cvx/Vag) (NOTE) Path Number: [id number] DIAGNOSIS Imaged ThinPrep Pap - Cervical (1 monolayer slide): Specimen Adequacy: Satisfactory for evaluation. -Endocervical/trans formation zone component is absent. Descriptive Diagnosis: Negative for intraepithelial lesion or malignancy. Cytotech Screener: EY Electronically Signed Out Margot Rand CT(ASCP) ey/05/28/2023 Source of Specimen: A: Imaged ThinPrep Pap - Cervical (1 monolayer slide) HPV Reflex?............ ..........HPV if Abnormal Clinical History Postmenopausal Z01.419 Routine brainer exam without abnormal findings LMP: 01/23/2016 Processing Lab: [address] [id number] Interpretation performed at [address] [id number] This Pap Test has been evaluated with the assistance of the ThinPrep Pap Test Imaging System. The Pap smear is a screening test primarily for squamous epithelial lesions, which is subject to both false negative and false positive results. Your patient should be reminded to consult you immediately if she experiences any suspicious signs or symptoms, regardless of her Pap smear result. GYNECOLOGIC CYTOLOGY REPORT Patient Name: KAROL PLASCENCIA Vincent. [facility] Rec: [id number] [facility] CONSULTING PATHOLOGISTS [facility] ANATOMIC PATHOLOGY [address] [place] [address]. [address] [facility] Ambulatory Visit Summaryon 1 Ambulatory Visit Summary KAROL PLASCENCIA :1970 Visit Date:01/27/2023 Ambulatory Visit Instructions Your Diagnosis Kidney stone Tests Performed Urnls Dip Stick Auto w/o Microscopy POC 48028 XR Abdomen 1 View -- Results Pending [...] ARREGUIN, Jordi Mckeon Where: [facility] Patient Educationon 01-28-20 Patient Education [...] Spinach (cooked), rhubarb, beets, sweet potatoes, and Russian chard. ? Peanuts. ? Potato chips, lao fries, and baked potatoes with skin on. ? Nuts and nut products. ? Chocolate. ? If you regularly take a diuretic medicine, make sure to eat at least 1 or 2 servings of fruits or vegetables that are high in potassium each day. These include: ? Avocado. ? Banana. ? [place], prune, carrot, or tomato juice. ? Baked [...] fish oil, or vitamin B6. ? Take vzwz-sio-swhlaju and prescription medicines only as told by your health care provider. These include supplements. What foods should I limit? Limit your in (more content not included)... Normal [facility] Urology Office/Clinic Noteon 01-27-2023 Urology Office/Clinic Note Chief Complaint Pt is here for 6 month w/ KUB HPI Staff 52 yo female here for 6 month f/u with KUB. Previous Dx: kidney stone. S/p ESWL 12/21/21, Cysto/stent placement 11/29/21, and Cysto 11/13/21. Litholink done 08/12/22. KUB done 01/23/23 at [facility]. Dysuria: denies Incomplete bladder emptying: denies [...] [address] [place] [address]- Additional Instructions: w/KUB Patient Education Dietary Guidelines to Help Prevent Kidney Stones IRadha, personally scribed for Dr. Mast on 01/27/2023 08:33:07. . Documentation recorded by the scribe, Radha Townsend, accurately reflects the services(s) I performed and decisions made by me. Authenticated by Dr. Mast on 01/27/2023 08:49:28. Portions of this record may have been created with voice recognition artificial intelligence software, specifically [place], [employer] and or [employer]. Substitutions may have occurred due to the [...] mg T (more content not included)... Normal [facility] Comment on above: Result Comment: Elec tronically Signed By: Jordi MAST MD\.br\Date and Time Signed: 01/27/23 08:50 EDT\.br\Electronically Co-Signed By: Radha Townsend\.br\Date and Time Co-Signed: 01/27/23 08:33 EDT RAD - MISCon 01-24-2023 RAD - MISC [id number] 2C#1.00CD:127 Normal [facility] Alanine aminotransferase [En zymatic activity/volume] in Serum or PlasmaOrdered By: Shubham Rodrigues on 12-25-2022 ALT [Catalytic activity/Vol] 27 U/L 7-52 [facility] Albumin [Mass/volume] in Ser um or Plasma by Bromocresol green (BCG) dye binding methoOrdered By: Shubham Rodrigues on 12-25-2022 Albumin BCG dye [Mass/Vol] 3.9 g/dL 3.5-5.7 [facility] Alkaline phosphatase [Enzyma tic activity/volume] in Serum or PlasmaOrdered By: Shubham Rodrigues on 12-25-2022 ALP [Catalytic activity/Vol] 138 U/L 34-104 [facility] Aspartate aminotransferase [ Enzymatic activity/volume] in Serum or PlasmaOrdered By: Shubham Rodrigues on 12-25-2022 AST [Catalytic activity/Vol] 20 U/L 13-39 [facility] Basophils Auto (Bld) [#/Vol] Ordered By: Shubham Rodrigues on 12-25-2022 Basophils (Bld) [#/Vol] 0.1 10*3/uL 0.0-0.2 [facility] Basophils/100 WBC Auto (Bld) Ordered By: Shubham Rodrigues on 12-25-2022 Basophils/100 WBC (Bld) 0.8 % . [facility] Bilirubin.total [Mass/volume ] in Serum or PlasmaOrdered By: Shubham Rodrigues on 12-25-2022 Bilirubin [Mass/Vol] 0.4 mg/dL 0.3-1.0 [facility] CMP with reflex to A1Con Albumin [Mass/Vol] 3.9 g/dL Normal 3.5-5.7 [facility] Comment on above: Performed By: #### C BC, CMP wRFX A1C #### [facility] [address] [place] [address] Albumin/Globulin [Mass ratio] 1.4 {ratio} Normal [facility] Comment on above: Performed By: #### C BC, CMP wRFX A1C #### [facility] [address] [place] [address] ALP [Catalytic activity/Vol] 138 U/L High 34-104 [facility] Comment on above: Result Comment: PERF ORMED BY: [place] [address] PATHOLOGIST BROADCASTING EQUIPMENT MECHANIC MULUGETA ANGLIN M.D. Performed By: #### C BC, CMP wRFX A1C #### [facility] [address] ALT [Catalytic activity/Vol] 27 U/L Normal 7-52 [facility] Comment on above: Performed By: #### C BC, CMP wRFX A1C #### [facility] [address] [place] [address] [place] Anion gap [Moles/Vol] 10.0 mmol/L Normal 6.0-15.0 [facility] Comment on above: Performed By: #### C BC, CMP wRFX A1C #### [facility] [address] AST [Catalytic activity/Vol] 20 U/L Normal 13-39 [facility] Comment on above: Performed By: #### C BC, CMP wRFX A1C #### [facility] [address] Bilirubin [Mass/Vol] 0.4 mg/dL Normal 0.3-1.0 [facility] Comment on above: Performed By: #### C BC, CMP wRFX A1C #### [facility] [address] Calcium [Mass/Vol] 9.1 mg/dL Normal 8.6-10.3 [facility] Comment on above: Performed By: #### C BC, CMP wRFX A1C #### [facility] [address] Chloride [Moles/Vol] 104 mmol/L Normal 98-107 [facility] Comment on above: Performed By: #### C BC, CMP wRFX A1C #### [facility] [address] CO2 [Moles/Vol] 30.2 mmol/L Normal 21.0-31.0 [facility] Comment on above: Performed By: #### C BC, CMP wRFX A1C #### [address] Creatinine [Mass/Vol] 0.69 mg/dL Normal 0.60-1.[address] [facility] Comment on above: Performed By: #### C BC, CMP wRFX A1C #### [facility] [address] [place] [address] [place] GFR/1.73 sq M.predicted MDRD (S/P/Bld) [Vol rate/Area] mL/min/{1.73_m2} [facility] Comment on above: Performed By: #### C BC, CMP wRFX A1C #### [facility] [address] Globulin (S) [Mass/Vol] 2.8 g/dL Normal [facility] Comment on above: Performed By: #### C BC, CMP wRFX A1C #### [facility] [address] [place] [address] [place] Glucose [Mass/Vol] 99 mg/dL Normal 70-100 [facility] Comment on above: Performed By: #### C BC, CMP wRFX A1C #### [facility] [address] [place] [address] [place] Potassium [Moles/Vol] 4.2 mmol/L Normal 3.5-5.[address] [facility] Comment on above: Performed By: #### C BC, CMP wRFX A1C #### [facility] [address] [place] [address] [place] Protein [Mass/Vol] 6.7 g/dL Normal 6.4-8.9 [facility] Comment on above: Performed By: #### C BC, CMP wRFX A1C #### [facility] [address] [place] [address] [place] Sodium [Moles/Vol] 140 mmol/L Normal 136-145 [facility] Comment on above: Performed By: #### C BC, CMP wRFX A1C #### [facility] [address] [place] [address] [place] Urea nitrogen [Mass/Vol] 18 mg/dL Normal 7-25 [facility] Comment on above: Performed By: #### C BC, CMP wRFX A1C #### [facility] [address] [place] [address] [place] Calcium [Mass/volume] in Ser um or PlasmaOrdered By: Shubham Rodrigues on 12-25-2022 Calcium [Mass/Vol] 9.1 mg/dL 8.6-10.3 [facility] Carbon dioxide, total [Moles /volume] in Serum or PlasmaOrdered By: Shubham Rodrigues on 12-25-2022 CO2 [Moles/Vol] 30.2 mmol/L 21.0-31.0 [facility] Chloride [Moles/volume] in S gerry or PlasmaOrdered By: Shubham Rodrigues on 12-25-2022 Chloride [Moles/Vol] 104 mmol/L 98-107 [facility] Complete Blood Count Auto Di ffon 12-25-2022 Basophils (Bld) [#/Vol] 0.1 10*3/uL Normal 0.0-0.2 [facility] Comment on above: Result Comment: PERF ORMED BY: [place] [address] PATHOLOGIST BROADCASTING EQUIPMENT MECHANIC MULUGETA ANGLIN M.D. Performed By: #### C BC, CMP wRFX A1C #### [facility] [address] [place] [address] Basophils/100 WBC (Bld) 0.8 % Normal . [facility] Comment on above: Performed By: #### C BC, CMP wRFX A1C #### [address] Eosinophils (Bld) [#/Vol] 0.2 10*3/uL Normal 0.0-0.45 [facility] Comment on above: Performed By: #### C BC, CMP wRFX A1C #### [place] [address] [place] Eosinophils/100 WBC (Bld) 3.0 % Normal . [facility] Comment on above: Performed By: #### C BC, CMP wRFX A1C #### [address] Erythrocyte distribution width (RBC) [Ratio] 14.4 % Normal 11.9-15.3 [facility] Comment on above: Performed By: #### C BC, CMP wRFX A1C #### [facility] [address] [place] [address] [place] Hematocrit (Bld) [Volume fraction] 39.1 % Normal 34.0-46.4 [facility] Comment on above: Performed By: #### C BC, CMP wRFX A1C #### [facility] [address] [place] [address] [place] Hemoglobin (Bld) [Mass/Vol] 13.0 g/dL Normal 11.8-15.4 [facility] Comment on above: Performed By: #### C BC, CMP wRFX A1C #### [facility] [address] [place] [address] [place] Lymphocytes (Bld) [#/Vol] 1.5 10*3/uL Normal 1.00-4.8 [facility] Comment on above: Performed By: #### C BC, CMP wRFX A1C #### [facility] [address] Lymphocytes/100 WBC (Bld) 22.8 % Normal . [facility] Comment on above: Performed By: #### C BC, CMP wRFX A1C #### [facility] [address] MCH (RBC) [Entitic mass] 28.9 pg Normal 24.7-34.3 [facility] Comment on above: Performed By: #### C BC, CMP wRFX A1C #### [address] MCV (RBC) [Entitic vol] 86.9 fL Normal 80-100 [facility] Comment on above: Performed By: #### C BC, CMP wRFX A1C #### [address] Mean Corpuscular HGB Conc 33.2 g/dL Normal 32.0-35.0 [facility] Comment on above: Performed By: #### C BC, CMP wRFX A1C #### [place] [address] [place] Monocytes (Bld) [#/Vol] 0.3 10*3/uL Normal 0.0-0.8 [facility] Comment on above: Performed By: #### C BC, CMP wRFX A1C #### [facility] [address] [place] [address] [place] Monocytes/100 WBC (Bld) 4.8 % Normal . [facility] Comment on above: Performed By: #### C BC, CMP wRFX A1C #### [facility] [address] [place] [address] [place] Neutrophils (Bld) [#/Vol] 4.7 10*3/uL Normal 1.8-7.7 [facility] Comment on above: Performed By: #### C BC, CMP wRFX A1C #### [facility] [address] Neutrophils/100 WBC (Bld) 68.6 % Normal . [facility] Comment on above: Performed By: #### C BC, CMP wRFX A1C #### [facility] [address] NRBC% 0.1 /100{WBC} Normal 0-0.5 [facility] Comment on above: Performed By: #### C BC, CMP wRFX A1C #### [facility] [address] Platelet mean volume (Bld) [Entitic vol] 7.2 fL Normal 6.3-10.7 [facility] Comment on above: Performed By: #### C BC, CMP wRFX A1C #### [facility] [address] Platelets (Bld) [#/Vol] 334 10*3/uL Normal 150-450 [facility] Comment on above: Performed By: #### C BC, CMP wRFX A1C #### [facility] [address] [place] [address] RBC (Bld) [#/Vol] 4.50 10*6/uL Normal 3.60-5.00 [facility] Comment on above: Performed By: #### C BC, CMP wRFX A1C #### [address] WBC (Bld) [#/Vol] 6.8 10*3/uL Normal 3.8-11.6 [facility] Comment on above: Performed By: #### C BC, CMP wRFX A1C #### [address] Creatinine [Mass/volume] in Serum or PlasmaOrdered By: Shubham Rodrigues on 12-25-2022 Creatinine [Mass/Vol] 0.69 mg/dL 0.60-1.[address] [facility] ECG 12 lead ECGon 12-25-2022 ECG 12 lead ECG [facility] [address] Electrocardiograph Report Signed Patient: Karol Plascencia MR#: [id number] : 1970 Acct:[id number] Age/Sex: 52 / F ADM Date: 12/25/22 Loc: Room: Type: [facility] Attending Dr: Shubham Rodrigues MD Ordering Provider: [...] By Tl Bryan DO 12/25 1134 Normal [facility] Eosinophils Auto (Bld) [#/Vo l]Ordered By: Shubham Rodrigues on 12-25-2022 Eosinophils (Bld) [#/Vol] 0.2 10*3/uL 0.0-0.45 [facility] Eosinophils/100 WBC Auto (Bl d)Ordered By: Shubham Rodrigues on 12-25-2022 Eosinophils/100 WBC (Bld) 3.0 % . [facility] Erythrocyte distribution wid th Auto (RBC) [Ratio]Ordered By: Shubham Rodrigues on 12-25-2022 Erythrocyte distribution width (RBC) [Ratio] 14.4 % 11.9-15.3 [facility] Globulin Calc (S) [Mass/Vol] Ordered By: Shubham Rodrigues on 12-25-2022 Globulin (S) [Mass/Vol] 2.8 g/dL [facility] Glucose [Mass/volume] in Ser um or PlasmaOrdered By: Shubham Rodrigues on 12-25-2022 Glucose [Mass/Vol] 99 mg/dL 70-100 [facility] Hematocrit Auto (Bld) [Volum e fraction]Ordered By: Shubham Rodrigues on 12-25-2022 Hematocrit (Bld) [Volume fraction] 39.1 % 34.0-46.4 [facility] Hemoglobin [Mass/volume] in BloodOrdered By: Shubham Rodrigues on 12-25-2022 Hemoglobin (Bld) [Mass/Vol] 13.0 g/dL 11.8-15.4 [facility] Leukocytes [#/volume] correc darren for nucleated erythrocytes in Blood by Automated counOrdered By: Shubham Rodrigues on 12-25-2022 WBC corrected for nucl RBC Auto (Bld) [#/Vol] 6.8 10*3/uL 3.8-11.6 [facility] Lymphocytes Auto (Bld) [#/Vo l]Ordered By: Shubham Rodrigues on 12-25-2022 Lymphocytes (Bld) [#/Vol] 1.5 10*3/uL 1.00-4.8 [facility] Lymphocytes/100 WBC Auto (Bl d)Ordered By: Shubham Rodrigues on 12-25-2022 Lymphocytes/100 WBC (Bld) 22.8 % . [facility] MCH Auto (RBC) [Entitic mass ]Ordered By: Shubham Rodrigues on 12-25-2022 MCH (RBC) [Entitic mass] 28.9 pg 24.7-34.3 [facility] MCHC Auto (RBC) [Mass/Vol]Or dered By: Shubham Rodrigues on 12-25-2022 MCHC (RBC) [Mass/Vol] 33.2 g/dL 32.0-35.[address] [facility] MCV Auto (RBC) [Entitic vol] Ordered By: Shubham Rodrigues on 12-25-2022 MCV (RBC) [Entitic vol] 86.9 fL 80-100 [facility] Monocytes Auto (Bld) [#/Vol] Ordered By: Shubham Rodrigues on 12-25-2022 Monocytes (Bld) [#/Vol] 0.3 10*3/uL 0.0-0.8 [facility] Monocytes/100 WBC Auto (Bld) Ordered By: Shubham Rodrigues on 12-25-2022 Monocytes/100 WBC (Bld) 4.8 % . [facility] Neutrophils Auto (Bld) [#/Vo l]Ordered By: Shubham Rodrigues on 12-25-2022 Neutrophils (Bld) [#/Vol] 4.7 10*3/uL 1.8-7.7 [facility] Neutrophils/100 WBC Auto (Bl d)Ordered By: Shubham Rodrigues on 12-25-2022 Neutrophils/100 WBC (Bld) 68.6 % . [facility] No Panel InformationOrdered By: Shubham Rodrigues on 12-25-2022 Estimated GFR (CKD-EPI) > 60.0 mL/Min [facility] Creatinine Clearance (Chem N/A [facility] Nucleated erythrocytes [Pres ence] in Blood by Automated countOrdered By: Shubham Rodrigues on 12-25-2022 Nucleated RBC Auto Ql (Bld) 0.1 /100{WBC} 0-0.5 [facility] Platelet mean volume Auto (B ld) [Entitic vol]Ordered By: Shubham Rodrigues on 12-25-2022 Platelet mean volume (Bld) [Entitic vol] 7.2 fL 6.3-10.7 [facility] Platelets Auto (Bld) [#/Vol] Ordered By: Shubham Rodrigues on 12-25-2022 Platelets (Bld) [#/Vol] 334 10*3/uL 150-450 [facility] Potassium [Moles/volume] in Serum or PlasmaOrdered By: Shubham Rodrigues on 12-25-2022 Potassium [Moles/Vol] 4.2 mmol/L 3.5-5.[address] [facility] Protein [Mass/volume] in Ser um or PlasmaOrdered By: Shubham Rodrigues on 12-25-2022 Protein [Mass/Vol] 6.7 g/dL 6.4-8.9 [facility] RBC Auto (Bld) [#/Vol]Ordere d By: Shubham Rodrigues on 12-25-2022 RBC (Bld) [#/Vol] 4.50 10*6/uL 3.60-5.00 [facility] Serum or plasma albumin/glob ulin mass ratioOrdered By: Shubham Rodrigues on 12-25-2022 Albumin/Globulin [Mass ratio] 1.4 {ratio} [facility] Serum or plasma anion gap de terminationOrdered By: Shubham Rodrigues on 12-25-2022 Anion gap [Moles/Vol] 10.0 mmol/L 6.0-15.0 [facility] Sodium [Moles/volume] in Ser um or PlasmaOrdered By: Shubham Rodrigues on 12-25-2022 Sodium [Moles/Vol] 140 mmol/L 136-145 [facility] Urea nitrogen [Mass/volume] in Serum or PlasmaOrdered By: Shubham Rodrigues on 12-25-2022 Urea nitrogen [Mass/Vol] 18 mg/dL 7-25 [facility] WBC Auto (Bld) [#/Vol]Ordere d By: Shubham Rodrigues on 12-25-2022 WBC (Bld) [#/Vol] 6.8 10*3/uL 3.8-11.6 [facility] Lab Reportson 08-21-2022 Lab Reports [id number] 59#1.00CD:127 Normal [facility] Lab Reportson 08-14-2022 Lab Reports [id number] 16#1.00CD:127 Normal [facility] PTH INTACTon 08-13-2022 PTH, Intact 59 pg/mL Normal 15-65 [facility] Comment on above: Performed By: #### P THINT ####[facility] [id number] [place], [place] [address]Am. Yolettetaiwo Caldwell BUNon 08-12-2022 Urea nitrogen [Mass/Vol] 12.0 mg/dL Normal 7.0-18.0 [facility] Comment on above: Performed By: #### C A, K, CL, BUN, URIC, CO2, CREA, NA ####[facility] [id number] [place], [place] [address]Lz. Yolettetaiwo Caldwell CALCIUMon 08-12-2022 Calcium [Mass/Vol] 9.0 mg/dL Normal 8.5-10.1 [facility] Comment on above: Performed By: #### C A, K, CL, BUN, URIC, CO2, CREA, NA ####[facility] [id number] [place] [address]Dr. Mikaela Caldwell CHLORIDEon 08-12-2022 Chloride [Moles/Vol] 107 mmol/L Normal 98-107 [facility] Comment on above: Performed By: #### C A, K, CL, BUN, URIC, CO2, CREA, NA ####[facility] [address] [place] [address]Dr. Mikaela Caldwell CO2on 08-12-2022 CO2 [Moles/Vol] 29.7 mmol/L Normal 21.0-32.0 [facility] Comment on above: Performed By: #### C A, K, CL, BUN, URIC, CO2, CREA, NA ####[facility] [id number] [place], [place] [address] CREATININEon 08-12-2022 Creatinine [Mass/Vol] 0.85 mg/dL Normal 0.55-1.02 [facility] Comment on above: Performed By: #### C A, K, CL, BUN, URIC, CO2, CREA, NA ####[facility] [address] [place] [address]Dr. [facility] EGFR-AF NIUEAN >60 Normal >=60 [facility] Comment on above: Performed By: #### C A, K, CL, BUN, URIC, CO2, CREA, NA ####[facility] [id number] [place], [place] [address]. [facility] EGFR-NON AF NIUEAN >60 Normal >=60 [facility] Comment on above: Performed By: #### C A, K, CL, BUN, URIC, CO2, CREA, NA ####[facility] [address] [place], [place] [address]Dr. Mikaela Caldwell NAon 08-12-2022 Sodium [Moles/Vol] 142 mmol/L Normal 136-145 [facility] Comment on above: Performed By: #### C A, K, CL, BUN, URIC, CO2, CREA, NA ####[facility] [address] [place], [place] [address]Ha. Mikaela Caldwell POTASSIUMon 08-12-2022 Potassium [Moles/Vol] 3.9 mmol/L Normal 3.5-5.1 [facility] Comment on above: Performed By: #### C A, K, CL, BUN, URIC, CO2, CREA, NA ####[facility] [address] [place], [place] [address]Ra. Mikaela Caldwell URIC ACID SERUMon 08-12-2022 Urate [Mass/Vol] 3.8 mg/dL Normal 2.6-6.0 [facility] Comment on above: Performed By: #### C A, K, CL, BUN, URIC, CO2, CREA, NA ####[facility] [address] [place], [place] [address]Iu. Mikaela Caldwell Formson 07-24-2022 Forms [id number]:127 Normal [facility] Patient Educationon 07-23-19 23 Patient Education Urology [...] these instructions at home: Medicines ? Take djig-put-ndbocfs and prescription medicines only as told by [...] 09/30/2008 Document Revised: 08/31/2019 Document Reviewed: 08/31/2019 [employer] Patient Education ? 2019 [employer] [facility] 07-22-2022 [facility] [phone] [id number]:127 [facility] Urology Office/Clinic Noteon 07-22-2022 Urology Office/Clinic Note [...] metabolic work-up. Follow-up With When Contact Information MANNIE ARREGUIN, Jordi Mckeon, URL In 6 months 01/22/[address] [address]- Additional Instructions: KUB Patient Education Kidney Stones, Ndve-[id number] Charisma Carpenter , personally scribed for Dr. Mast on [...] Protein Urine Dipstick: Negative (07/22/22 09:47:00) Specific [place] Urine Dipstick: <=1.005 (07/22/22 09:47:00) Urine Appearance Urine Dipstick: Clear (07/22/22 09:47:00) Urine Color Urine Dipstick: Light yellow (07/22/22 09:47:00) Urobilinogen Urine Dipstick: Normal 0.2-1 EU/dl (07/22/22 09:47:00) pH Urine Dipstick: 5.5 (07/22/22 09:47:00) Diagnostic (more content not included)... Normal [facility] Comment on above: Result Comment: Elec tronically [...] ZENAIDA ENGLISH Date: 2022-07-18 09:03 Normal [facility] Provider Letteron 05-31-2022 Provider Letter May 31, 2022 KAROL PLASCENCIA [address] [place] [address] KAROL PLASCENCIA 1970 Dear Karol, We have [...] prompt attention to this matter. Please call [phone] Sincerely, [facility] [address] [place] [address] x 1 Normal [facility] US THYROIDon 05-15-2022 US THYROID EXAMINATION: US [...] IMPRESSION: Bilateral stable thyroid nodules TI-RADS: The [employer] TI-RADS committee's white paper recommendations for thyroid lesions classified as TR4 (moderately suspicious) are listed below: > 1.0 cm. Follow-up ultrasound in 1, 2, 3, and 5 years. > 1.5 cm. FNA. J. Am Ellen Radiol 2017;14:587-595. Electronically authenticated by: KODY GARRISON Date: 2022-05-15 11:41 Normal [facility] MG MAMM SCREEN 3D ANN-MARIE CADon 03-27-2022 MG MAMM SCREEN 3D ANN-MARIE CAD Patient: KAROL PLASCENCIA Exam Date: 03/27/2022 : 1970 Gender:F Ordering : DR SUE WIN . Admission #: [id number] Family : Order #: [id number] CLICK HERE TO VIEW EXAM RADIOLOGY REPORT [...] prostate cancer at age 67. LOCATION: [facility] BREAST COMPOSITION: Heterogeneously dense,which may obscure small [...] M.D. on 03/27/2022 at 15:30 Approved by: Zeniada English M.D. on 03/27/2022 at 15:33 Normal [facility] Ammonium urate crystals dete ction in stone by infrared spectroscopyOrdered By: Jordi Mast on 12-21-2021 Ammonium urate crystals Infrared spectroscopy Ql (Stone) N/A [facility] Calcium bilirubinate measure mentOrdered By: Jordi Mast on 12-21-2021 Calcium bilirubinate (Stone) [Mass fraction] N/A [facility] Calcium carbonate measuremen tOrdered By: Jordi Mast on 12-21-2021 Calcium carbonate (Stone) [Mass fraction] N/A [facility] Calcium hydrogen phosphate d ihydrate/Total in StoneOrdered By: Jordi Mast on 12-21-2021 Calcium hydrogen phosphate dihydrate (Stone) [Mass fraction] N/A [facility] Calcium oxalate dihydrate cr ystals detection in stone by infrared spectroscopyOrdered By: Jordi Mast on 12-21-2021 Calcium oxalate dihydrate crystals Infrared spectroscopy Ql (Stone) 20 % . [facility] Calcium oxalate monohydrate/ Total in StoneOrdered By: Jordi Mast on 12-21-2021 Calcium oxalate monohydrate (Stone) [Mass fraction] 80 % . [facility] Calcium phosphate measuremen tOrdered By: Jordi Mast on 12-21-2021 Calcium phosphate (Stone) [Mass fraction] N/A [facility] Calculus analysis interpreta tion in stoneOrdered By: Jordi Mast on 12-21-2021 Calculus analysis [Interp] N/A [facility] Calculus analysis [Interp] See comment . [facility] Comment on above: Calculus received in liquid. Wet calculi must be dried before analysis, which delays reporting of results. Leaving calculi in liquid (such as water, saline, blood, urine) may lead to changes in composition. Physician questions regarding Calculi Analysis contact [place] at: [phone]. Calculi report will follow via computer, mail or v belt builder delivery. Calculus analysis with calcu guera photography interpretation in stoneOrdered By: Jordi Mast on 12-21-2021 Calculus analysis with calculus photography [Interp] See comment . [facility] Comment on above: Photograph will foll ow under a separate cover Cellular material measuremen t in stone by estimated (mass/mass)Ordered By: Jordi Mast on 12-21-2021 Cellular material Est (Stone) [Mass/Mass] N/A [facility] Cholesterol/Total in StoneOr dered By: Jordi Mast on 12-21-2021 Cholesterol (Stone) [Mass fraction] N/A [facility] Composition of stoneOrdered By: Jordi Mast on 12-21-2021 Composition Nom (Stone) See comment . [facility] Comment on above: Percentage (Represen ts the % composition) Cystine measurementOrdered B y: Jordi Mast on 12-21-2021 Cystine (Unsp spec) [Moles/Vol] N/A [facility] Determination of color of ca lculusOrdered By: Jordi Mast on 12-21-2021 Color (Stone) Brown . [facility] Hydroxyapatite [Energy Diffe rence] in 24 hour UrineOrdered By: Jordi Mast on 12-21-2021 Hydroxyapatite (24H U) [Energy diff] N/A [facility] Measurement of proportion of calculus composed of dried blood (mass/mass)Ordered By: Jordi Mast on 12-21-2021 Blood.dried (Stone) [Mass fraction] N/A [facility] Newberyite/Total in StoneOrd ered By: Jordi Mast on 12-21-2021 Newberyite (Stone) [Mass fraction] N/A [facility] No Panel InformationOrdered By: Jordi Mast on 12-21-2021 Stone 2,8 Dihydroxyadenine N/A [facility] Stone Analysis Disclaimer See comment . [facility] Comment on above: This test was develo ped and its performance characteristics determined by [employer]. It has not been cleared or approved by the Food and Drug Administration. Performed at: [facility] Stone Analysis [address] [place] [address] [address] [place], [place] [id number] Police Service Technician: Jayson Santos PhD, Phone: [phone] Stone Bilirubinate N/A [facility] Stone Calcium Palmitate N/A [facility] Stone Calcium Stearate N/[facility] Carbonate Apatite N/A [facility] Stone Drug or Metabolite N/A [facility] Stone Other Constituent N/A [facility] Stone Xanthine N/A [facility] Size [Entitic volume] of Sto neOrdered By: Jordi Mast on 12-21-2021 Size (Stone) [Entitic vol] 5x3 mm . [facility] Comment on above: Multiple pieces rece ived. Dimensions of the largest piece reported. Sodium urate crystals detect ion in stone by infrared spectroscopyOrdered By: Jordi Mast on 12-21-2021 Sodium urate crystals Infrared spectroscopy Ql (Stone) N/A [facility] Specimen source subject [Typ e]Ordered By: Jordi Mast on 12-21-2021 Specimen source subject Nom See comment . [facility] Comment on above: Left Ureter Triamterene measurement in c alculusOrdered By: Jordi Mast on 12-21-2021 Triamterene (Stone) [Mass fraction] N/A [facility] Triple phosphate/Total in St oneOrdered By: Jordi Mast on 12-21-2021 Triple phosphate (Stone) [Mass fraction] N/A [facility] Uric acid dihydrate crystals detection in stone by infrared spectroscopyOrdered By: Jordi Mast on 12-21-2021 Urate dihydrate crystals Infrared spectroscopy Ql (Stone) N/A [facility] COVID-19 Positive/NegativeOr dered By: Jordi Mast on 12-19-2021 SARS-CoV-2 (COVID-19) N gene ISABELLA+probe Ql (Resp) Negative Negative [facility] Comment on above: Testing for SARS-CoV -2 by RT-PCR This test was developed and its performance characteristics determined by [employer]) and validated at the [facility]. This test has not been FDA cleared [...] aPTT Coag (PPP) [Time] 40.1 s 25.1-36.5 [facility] Basophils Auto (Bld) [#/Vol] Ordered By: Jordi Mast on 12-13-2021 Basophils (Bld) [#/Vol] 0.1 10*3/uL 0.0-0.2 [facility] Basophils/100 WBC Auto (Bld) Ordered By: Jordi Mast on 12-13-2021 Basophils/100 WBC (Bld) 0.8 % . [facility] Blood hemoglobin measurement (mass/volume)Ordered By: Jordi Mast on 12-13-2021 Hemoglobin (Bld) [Mass/Vol] 12.8 g/dL 11.8-15.4 [facility] Blood leukocytes automated c ount (number/volume)Ordered By: Jordi Mast on 12-13-2021 WBC (Bld) [#/Vol] 6.9 10*3/uL 4.5-11.0 [facility] Creatinine and Glomerular fi ltration rate.predicted panel (S/P/Bld)Ordered By: Jordi Mast on 12-13-2021 Creatinine [Mass/Vol] 0.76 mg/dL 0.44-1.[address] [facility] Eosinophils Auto (Bld) [#/Vo l]Ordered By: Jordi Mast on 12-13-2021 Eosinophils (Bld) [#/Vol] 0.3 10*3/uL 0.0-0.45 [facility] Eosinophils/100 WBC Auto (Bl d)Ordered By: Jordi Mast on 12-13-2021 Eosinophils/100 WBC (Bld) 4.9 % . [facility] Erythrocyte distribution wid th Auto (RBC) [Ratio]Ordered By: Jordi Mast on 12-13-2021 Erythrocyte distribution width (RBC) [Ratio] 14.0 % 11.9-15.3 [facility] Estimated glomerular filtrat ion rate (GFR) non- AmericanOrdered By: Jordi Mast on 12-13-2021 GFR/1.73 sq M.predicted among non-blacks MDRD (S/P/Bld) [Vol rate/Area] > 60 mL/Min [facility] Hematocrit Auto (Bld) [Volum e fraction]Ordered By: Jordi Mast on 12-13-2021 Hematocrit (Bld) [Volume fraction] 39.2 % 34.0-46.4 [facility] Laboratory - CoagulationOrde red By: Jordi Mast on 12-13-2021 PT Coag (PPP) [Time] 11.9 s 9.0-12.9 [facility] Laboratory - Hematology and Cell countsOrdered By: Jordi Mast on 12-13-2021 Nucleated RBC/100 WBC (Bld) [Ratio] 0.1 % 0-0.5 [facility] Lymphocytes Auto (Bld) [#/Vo l]Ordered By: Jordi Mast on 12-13-2021 Lymphocytes (Bld) [#/Vol] 2.0 10*3/uL 1.00-4.8 [facility] Lymphocytes/100 WBC Auto (Bl d)Ordered By: Jordi Mast on 12-13-2021 Lymphocytes/100 WBC (Bld) 28.9 % . [facility] MCH Auto (RBC) [Entitic mass ]Ordered By: Jordi Mast on 12-13-2021 MCH (RBC) [Entitic mass] 28.8 pg 24.7-34.3 [facility] MCHC Auto (RBC) [Mass/Vol]Or dered By: Jordi Mast on 12-13-2021 MCHC (RBC) [Mass/Vol] 32.6 g/dL 32.0-35.[address] [facility] MCV Auto (RBC) [Entitic vol] Ordered By: Jordi Mast on 12-13-2021 MCV (RBC) [Entitic vol] 88.1 fL 80-100 [facility] Monocytes Auto (Bld) [#/Vol] Ordered By: Jordi Mast on 12-13-2021 Monocytes (Bld) [#/Vol] 0.4 10*3/uL 0.0-0.8 [facility] Monocytes/100 WBC Auto (Bld) Ordered By: Jordi Mast on 12-13-2021 Monocytes/100 WBC (Bld) 6.5 % . [facility] Neutrophils Auto (Bld) [#/Vo l]Ordered By: Jordi Mast on 12-13-2021 Neutrophils (Bld) [#/Vol] 4.1 10*3/uL 1.8-7.7 [facility] Neutrophils/100 WBC Auto (Bl d)Ordered By: Jordi Mast on 12-13-2021 Neutrophils/100 WBC (Bld) 58.9 % . [facility] No Panel InformationOrdered By: Jordi aMst on 12-13-2021 Estimated GFR () > 60 mL/Min [facility] Comment on above: GFR estimated refere nce range: According to KDOQI guidelines, <60 ml/min/1.73m2 is sufficient to diagnose a patient with chronic kidney disease. Pharmacy Creatinine Clearance (Chem N/A [facility] Platelet mean volume Auto (B ld) [Entitic vol]Ordered By: Jordi Mast on 12-13-2021 Platelet mean volume (Bld) [Entitic vol] 7.5 fL 6.3-10.7 [facility] Platelet poor plasma interna tional normalized ratio (INR) by coagulation assay (relatOrdered By: Jordi Mast on 12-13-2021 INR Coag (PPP) [Relative time] 1.1 {INR} [facility] Comment on above: INR Therapeutic Rang e [...] 12-13-2021 Platelets (Bld) [#/Vol] 345 10*3/uL 150-450 [facility] RBC Auto (Bld) [#/Vol]Ordere d By: Jordi Mast on 12-13-2021 RBC (Bld) [#/Vol] 4.45 10*6/uL 3.60-5.00 [facility] Serum or plasma calcium cielo urement (mass/volume)Ordered By: Jordi Mast on 12-13-2021 Calcium [Mass/Vol] 9.2 mg/dL 8.2-10.2 [facility] Serum or plasma chloride ankita surement (moles/volume)Ordered By: Jordi Mast on 12-13-2021 Chloride [Moles/Vol] 102 mmol/L 95-114 [facility] Serum or plasma glucose cielo urement (mass/volume)Ordered By: Jordi Mast on 12-13-2021 Glucose [Mass/Vol] 90 mg/dL 70-100 [facility] Comment on above: ADA recommended refe rence range Random Glucose Reference Range is dependent on time and content of last meal. Glucose of more than 200 mg/dL in a nonstressed, ambulatory subject supports the diagnosis of Diabetes Mellitus. Serum or plasma potassium me asurement (moles/volume)Ordered By: Jordi Mast on 12-13-2021 Potassium [Moles/Vol] 3.6 mmol/L 3.5-5.[address] [facility] Serum or plasma sodium measu rement (moles/volume)Ordered By: Jordi Mast on 12-13-2021 Sodium [Moles/Vol] 139 mmol/L 136-146 [facility] Serum or plasma total carbon dioxide measurement (moles/volume)Ordered By: Jordi Mast on 12-13-2021 CO2 [Moles/Vol] 27.4 mmol/L 22.0-30.0 [facility] Serum or plasma urea nitroge n measurement (mass/volume)Ordered By: Jordi Mast on 12-13-2021 Urea nitrogen [Mass/Vol] 13 mg/dL 9-23 [facility] MRI KNEE RT WO CONon 022 MRI [...] by: ZENAIDA ENGLISH Date: 2021-12-12 17:04 Normal [facility] XR KUB 1 VIEWon 12-10-2021 XR [...] by: ZENAIDA ENGLISH Date: 2021-12-10 07:56 Normal [facility] COVID-19 SOFIAOrdered By: Jeison Mast on 11-27-2021 SARS-CoV+SARS-CoV-2 (COVID-19) Ag IA.rapid Ql (Resp) Negative Negative [facility] Comment on above: This is a duplicate Mony SARS Antigen (MILES) result to be used for statistical tracking purpose only. No Panel InformationOrdered By: Jordi Mast on 11-27-2021 SARS Antigen (LFIA) [facility] XR KUB 1 VIEWon 11-20-2021 XR KUB [...] by: ZENAIDA ENGLISH Date: 2021-11-20 18:35 Normal [facility] CULTURE URINEon 11-15-2021 CULTURE URINE Isolate [...] F Trimethoprim/Sulfam ethoxazole <=20 S F Normal [facility] Comment on above: Performed By: #### C VDTB #### [facility] [address] [address] [address] Mikaela Caldwell CARDIAC EDGARDO 3-6on 2 CK [Catalytic activity/Vol] 54 U/L Normal 26-192 [facility] Comment on above: Performed By: #### C VDTBH #### [facility] [address] [address] [address] Mikaela Caldwell CK.MB [Mass/Vol] 2.05 ng/mL Normal <=3.60 [facility] Comment on above: Performed By: #### C VDTBH #### [facility] [address] [address] [address] Mikaela Caldwell HSTROP 6.5 pg/mL Normal 4.0-51.3 [facility] Comment on above: Result Comment: CUT- OFF POINTS HAVE BEEN ESTABLISHED BASED ON THE FOURTH UNIVERSAL DEFINITIONS OF MYOCARDIAL INFARCTION. THE UPPER REFERENCE LIMIT (URL) OF TROPONIN, DEFINED THE 99TH PERCENTILE OF cTnI DISTRIBUTION IN A REFERENCE POPULATION, HAS BEEN CONFIRMED THE DECISION THRESHOLD FOR IN DIAGNOSIS. Performed By: #### C VDTBH #### [facility] [address] [address] [address] Mikaela Caldwell CK [Catalytic activity/Vol] 63 U/L Normal 26-192 [facility] Comment on above: Performed By: #### C MREP #### [facility] [address] [address] [address] Mikaela Caldwell CK.MB [Mass/Vol] 2.28 ng/mL Normal <=3.60 [facility] Comment on above: Performed By: #### C MREP #### [facility] [address] [address] [address] Mikaela Caldwell HSTROP 5.1 pg/mL Normal 4.0-51.3 [facility] Comment on above: Result Comment: CUT- OFF POINTS HAVE BEEN ESTABLISHED BASED ON THE FOURTH UNIVERSAL DEFINITIONS OF MYOCARDIAL INFARCTION. THE UPPER REFERENCE LIMIT (URL) OF TROPONIN, DEFINED THE 99TH PERCENTILE OF cTnI DISTRIBUTION IN A REFERENCE POPULATION, HAS BEEN CONFIRMED THE DECISION THRESHOLD FOR IN DIAGNOSIS. Performed By: #### C MREP #### [facility] [address] [address] [address] Mikaela Caldwell CARDIAC EDGARDO ADMITon 022 CK [Catalytic activity/Vol] 77 U/L Normal 26-192 [facility] Comment on above: Performed By: #### C MADM, LIPA, CMP #### [facility] [address] [address] [address] Mikaela Caldwell CK.MB [Mass/Vol] 2.40 ng/mL Normal <=3.60 [facility] Comment on above: Performed By: #### C MADM, LIPA, CMP #### [facility] [address] [address] [address] Mikaela Caldwell HSTROP 5.8 pg/mL Normal 4.0-51.3 [facility] Comment on above: Result Comment: CUT- OFF POINTS HAVE BEEN ESTABLISHED BASED ON THE FOURTH UNIVERSAL DEFINITIONS OF MYOCARDIAL INFARCTION. THE UPPER REFERENCE LIMIT (URL) OF TROPONIN, DEFINED THE 99TH PERCENTILE OF cTnI DISTRIBUTION IN A REFERENCE POPULATION, HAS BEEN CONFIRMED THE DECISION THRESHOLD FOR IN DIAGNOSIS. Performed By: #### C MADM, LIPA, CMP #### [facility] [address] [place] [address] Dr. Mikaela Caldwell JOYCE 29 ng/mL Normal 9-82 [facility] Comment on above: Performed By: #### C MADM, LIPA, CMP #### [facility] [address] [place] [address] Dr. Mikaela Caldwell CBC AUTO DIFFon 11-13-2021 BASO # 0.1 103/ul Normal 0.0-0.1 [facility] Comment on above: Performed By: #### C BC #### [facility] [address] [place] [address] Dr. Mikaela Caldwell Basophils/100 WBC (Bld) 0.5 % Normal 0.2-2.0 [facility] Comment on above: Performed By: #### C BC #### [facility] [address] [place] [address] Dr. Mikaela Caldwell EO # 0.3 103/ul Normal 0.0-0.7 [facility] Comment on above: Performed By: #### C BC #### [facility] [address] [address] [address] Mikaela Caldwell Eosinophils/100 WBC (Bld) 2.1 % Normal 0.9-7.0 [facility] Comment on above: Performed By: #### C BC #### [facility] [address] [place] [address] Dr. Mikaela Caldwell Erythrocyte distribution width (RBC) [Ratio] 13.2 % Normal 11.0-15.0 [facility] Comment on above: Performed By: #### C BC #### [facility] [address] [place] [address] Dr. Mikaela Caldwell Hematocrit (Bld) [Volume fraction] 40.9 % Normal 36.0-48.0 [facility] Comment on above: Performed By: #### C BC #### [facility] [address] [place] [address] Dr. Mikaela Caldwell Hemoglobin (Bld) [Mass/Vol] 13.1 g/dL Normal 12.0-16.0 [facility] Comment on above: Performed By: #### C BC #### [facility] [address] [place] [address] Dr. Mikaela Caldwell IG # 0.07 10e3/ul Critically high 0.00-0.03 [facility] Comment on above: Performed By: #### C BC #### [facility] [address] [place] [address] Dr. Mikaela Caldwell IG % 0.5 % Normal 0.0-0.5 [facility] Comment on above: Performed By: #### C BC #### [facility] [address] [place] [address] Dr. Mikaela Caldwell LYMPH # 1.8 103/ul Normal 1.2-3.8 [facility] Comment on above: Performed By: #### C BC #### [facility] [address] [place] [address] Dr. Mikaela Caldwell Lymphocytes/100 WBC (Bld) 12.5 % Critically low 20.5-60.0 [facility] Comment on above: Performed By: #### C BC #### [facility] [address] [place] [address] Dr. Mikaela Caldwell MANUAL DIFF REQ NO Normal [facility] Comment on above: Performed By: #### C BC #### [facility] [address] [place] [address] Dr. Mikaela Caldwell MCH (RBC) [Entitic mass] 29.2 pg Normal 26.7-34.0 [facility] Comment on above: Performed By: #### C BC #### [facility] [address] [address] [address] Mikaela Caldwell MCHC (RBC) [Mass/Vol] 32.0 g/dL Normal 29.9-35.2 [facility] Comment on above: Performed By: #### C BC #### [facility] [address] [address] [address] Mikaela Caldwell MCV (RBC) [Entitic vol] 91.1 fL Normal 81.0-99.0 [facility] Comment on above: Performed By: #### C BC #### [facility] [address] [address] [address] Mikaela Caldwell MONO # 0.7 103/ul Normal 0.3-0.8 [facility] Comment on above: Performed By: #### C BC #### [facility] [address] [place] [address] Dr. Mikaela Caldwell Monocytes/100 WBC (Bld) 5.1 % Normal 1.7-12.0 [facility] Comment on above: Performed By: #### C BC #### [facility] [address] [address] [address] Mikaela Caldwell NEUT # 11.1 103/ul Critically high 1.4-6.5 [facility] Comment on above: Performed By: #### C BC #### [facility] [address] [place] [address] Dr. Mikaela Caldwell Neutrophils/100 WBC (Bld) 79.3 % Critically high 43.0-75.0 [facility] Comment on above: Performed By: #### C BC #### [facility] [address] [address] [address] Mikaela Caldwell Platelet mean volume (Bld) [Entitic vol] 9.2 fL Critically low 9.5-13.5 [facility] Comment on above: Performed By: #### C BC #### [facility] [address] [address] [address] Mikaela Caldwell PLT 420 103/ul Normal 150-450 [facility] Comment on above: Performed By: #### C BC #### [facility] [address] [place], [place] [address] Dr. Mikaela Caldwell RBC 4.49 106/ul Normal 4.20-5.40 [facility] Comment on above: Performed By: #### C BC #### [facility] [address] [place], [place] [address] Dr. Mikaela Caldwell WBC 14.0 103/ul Critically high 4.0-11.0 [facility] Comment on above: Performed By: #### C BC #### [facility] [address] [place], [place] [address] ABD/PELVIS WO CONon [...] as clinically indicated. Electronically authenticated by: GEORGE LLANES Date: 2021-11-13 02:57 Normal [facility]on 10-26 SARS-CoV-2 (COVID-19) RNA ISABELLA+probe Ql (Unsp spec) Not detected Normal NOT DETECTED [facility] Comment on above: Result Comment: When diagnostic [...] for this test is supported by the [place] of Health and Human Service's declaration that [...] used). Performed By: #### C VDTB #### [facility] [address] [place] [address] Dr. Mikaela Caldwell ER URINE PROFILEon 2 Bilirubin Ql (U) Negative Normal NEGATIVE [facility] Comment on above: Performed By: #### AUBREE ROGERS #### [facility] [address] [place] [address] Dr. Mikaela Caldwell Clarity (U) CLEAR Normal CLEAR [facility] Comment on above: Performed By: #### KENDELL ROGERSRO #### [facility] [address] [place] [address] Dr. Mikaela Caldwell Color (U) LT. YELLOW Normal YELLOW [facility] Comment on above: Performed By: #### KENDELL ROGERSRO #### [facility] [address] [place] [address] Dr. Mikaela Caldwell ERUAHD A micrscopic examination will be performed if indicated. Normal [facility] Comment on above: Performed By: #### KENDELL ROGERSRO #### [facility] [address] [place] [address] Dr. Mikaela Caldwell Glucose Ql (U) Negative Normal NEGATIVE [facility] Comment on above: Performed By: #### Jimy ROSAS UMICRO #### [facility] [address] [address] [address] Mikaela Caldwell Hemoglobin Ql (U) TRACE-INTACT Abnormal NEGATIVE [facility] Comment on above: Performed By: #### Jimy ROSAS UMICRO #### [facility] [address] [address] [address] Mikaela Caldwell Ketones Ql (U) Negative Normal NEGATIVE [facility] Comment on above: Performed By: #### Jimy ROSAS UMICRO #### [facility] [address] [place] [address] Dr. Mikaela Caldwell LEUKOCYTES TRACE Abnormal NEGATIVE [facility] Comment on above: Performed By: #### Jimy ROSAS UMICRO #### [facility] [address] [place] [address] Dr. Mikaela Caldwell Nitrite Ql (U) Positive Abnormal NEGATIVE [facility] Comment on above: Performed By: #### Jimy ROSAS UMICRO #### [facility] [address] [place] [address] Dr. Mikaela Caldwell pH (U) 6.5 [pH] Normal 5-9 [facility] Comment on above: Performed By: #### Jimy ROSAS UMICRO #### [facility] [address] [place] [address] Dr. Mikaela Caldwell SPEC GRAVITY 1.020 Normal 1.005-<=1.025 [facility] Comment on above: Performed By: #### Jimy ROSAS UMICRO #### [facility] [address] [place] [address] Dr. Mikaela Caldwell UA PROTEIN Negative Normal NEGATIVE/ TRACE [facility] Comment on above: Performed By: #### Jimy ROSAS UMICRO #### [facility] [address] [place] [address] Dr. Mikaela Caldwell UR MICRO IND INDICATED Normal [facility] Comment on above: Performed By: #### Jimy ROSAS UMICRO #### [facility] [address] [address] [address] Mikaela Caldwell Urobilinogen Qn (U) 0.2 {Lisa'U}/dL Normal 0.2 - 1. 0 [facility] Comment on above: Performed By: #### E AUBREE ROSAS #### [facility] [address] [address] [address] Mikaela Caldwell LACTATE/LACTIC ACIDon 2021 Lactate [Moles/Vol] 1.2 mmol/L Normal 0.4-1.9 [facility] Comment on above: Performed By: #### L ACT ####[facility] [address]. Mikaela Caldwell LIPASEon 11-13-2021 Lipase [Catalytic activity/Vol] 97.0 U/L Normal 73.0-393.0 [facility] Comment on above: Performed By: #### C SIMONE MAA, CMP #### [facility] [address] [address] [address] Mikaela Caldwell PROF 14(COMP METB)on 022 Albumin [Mass/Vol] 3.5 g/dL Normal 3.4-5.0 [facility] Comment on above: Performed By: #### C CANDELARIAM LIPA, CMP #### [facility] [address] [address] [address] Mikaela Caldwell Albumin/Globulin [Mass ratio] 0.9 {ratio} Normal [facility] Comment on above: Performed By: #### C MADM, LIPA, CMP #### [facility] [address] [place] [address] Dr. Mikaela Caldwell ALP [Catalytic activity/Vol] 161 U/L Critically high 46-116 [facility] Comment on above: Performed By: #### C MADM LIPA, CMP #### [facility] [address] [address] [address] Mikaela Caldwell ALT [Catalytic activity/Vol] 30 U/L Normal 14-59 [facility] Comment on above: Performed By: #### C MADM LIPA, CMP #### [facility] [address] [address] [address] Mikaela Caldwell Anion gap [Moles/Vol] 10.4 mmol/L Normal [facility] Comment on above: Performed By: #### C MADM, LIPA, CMP #### [facility] [address] [address] [address] Mikaela Caldwell AST [Catalytic activity/Vol] 17 U/L Normal 15-37 [facility] Comment on above: Performed By: #### C MADM, LIPA, CMP #### [facility] [address] [address] [address] Mikaela Caldwell Bilirubin [Mass/Vol] 0.3 mg/dL Normal 0.2-1.0 [facility] Comment on above: Performed By: #### C MADM, LIPA, CMP #### [facility] [address] [address] [address] Mikaela Caldwell Calcium [Mass/Vol] 8.8 mg/dL Normal 8.5-10.1 [facility] Comment on above: Performed By: #### C MADM, LIPA, CMP #### [facility] [address] [address] [address] Mikaela Caldwell Chloride [Moles/Vol] 106 mmol/L Normal 98-107 [facility] Comment on above: Performed By: #### C MADM, LIPA, CMP #### [facility] [address] [address] [address] Mikaela Caldwell CO2 [Moles/Vol] 30.1 mmol/L Normal 21.0-32.0 [facility] Comment on above: Performed By: #### C MADM, LIPA, CMP #### [facility] [address] [address] [address] Mikaela Caldwell Creatinine [Mass/Vol] 1.02 mg/dL Normal 0.55-1.02 [facility] Comment on above: Performed By: #### C MADM, LIPA, CMP #### [facility] [address] [address] [address] Mikaela Caldwell EGFR-AF NIUEAN >60 Normal >=60 [facility] Comment on above: Performed By: #### C MADM LIPA, CMP #### [facility] [address] [address] [address] Mikaela Caldwell EGFR-NON AF NIUEAN 57 mL/min/1.73m2 Critically low >=60 [facility] Comment on above: Performed By: #### C MADM LIPA, CMP #### [facility] [address] [place] [address] Dr. Mikaela Caldwell Globulin (S) [Mass/Vol] 4.0 g/dL Normal [facility] Comment on above: Performed By: #### C MADMarii LIPA, CMP #### [facility] [address] [place] [address] Dr. Mikaela Caldwell Glucose [Mass/Vol] 113 mg/dL Critically high 74-106 [facility] Comment on above: Performed By: #### C ANIL LIPA, CMP #### [facility] [address] [place] [address] Dr. Mikaela Caldwell Potassium [Moles/Vol] 3.5 mmol/L Normal 3.5-5.1 [facility] Comment on above: Performed By: #### C ANIL LIPA, CMP #### [facility] [address] [place] [address] Dr. Mikaela Caldwell Protein [Mass/Vol] 7.5 g/dL Normal 6.4-8.2 [facility] Comment on above: Performed By: #### C MADMarii LIPA, CMP #### [facility] [address] [place] [address] Dr. Mikaela Caldwell Sodium [Moles/Vol] 143 mmol/L Normal 136-145 [facility] Comment on above: Performed By: #### C MADM LIPA, CMP #### [facility] [address] [place] [address] Dr. Mikaela Caldwell Urea nitrogen [Mass/Vol] 18.0 mg/dL Normal 7.0-18.0 [facility] Comment on above: Performed By: #### C MADM, LIPA, CMP #### [facility] [address] [place] [address] Dr. Mikaela Caldwell Urea nitrogen/Creatinine [Mass ratio] 17.6 mg/mg Normal [facility] Comment on above: Performed By: #### C MADRONEN Colvin, CMP #### [facility] [address] [place] [address] Dr. Mikaela Caldwell URINE MICROSCOPIC ONLYon BACTERIA TRACE Abnormal NONE SEEN [facility] Comment on above: Performed By: #### E RUR, UMICRO #### [facility] [address] [place] [address] Dr. Mikaela Caldwell Bacteria identified Cx Nom (U) INDICATED Normal [facility] Comment on above: Performed By: #### E RALPH, UMICRO #### [facility] [address] [place] [address] Dr. Mikaela Caldwell CAST NONE SEEN Normal NONE SEEN [facility] Comment on above: Performed By: #### Jimy ROSAS UMICRO #### [facility] [address] [place] [address] Dr. Mikaela Caldwell Crystals LM Nom (Urine sed) NONE SEEN Normal NONE SEEN [facility] Comment on above: Performed By: #### Jimy ROSAS, UMICRO #### [facility] [address] [place] [address] Dr. Mikaela Caldwell Epithelial cells LM Ql (Urine sed) NONE SEEN Normal NONE SEEN /RARE [facility] Comment on above: Performed By: #### Jimy ROSAS UMICRO #### [facility] [address] [place] [address] Dr. Mikaela Caldwell MUCOUS NONE SEEN Normal NONE SEEN [facility] Comment on above: Performed By: #### Jimy ROSAS UMICRO #### [facility] [address] [place] [address] Dr. Mikaela Caldwell RBC 0-2 Normal 0-2 [facility] Comment on above: Performed By: #### Jimy ROSAS, UMICRO #### [facility] [address] [place] [address] Dr. Mikaela Caldwell WBC 5-10 Abnormal NONE SEEN [facility] Comment on above: Performed By: #### E AUBREE ROSAS #### [facility] [address] [address] [address] Mikaela Caldwell XR CHEST 2 Von [...] GEORGE LLANES Date: 2021-11-13 02:46 Normal [facility] Vital Signs Date Time Vital Sign Value Performing Clinician Facility 12-19-2022 09:45-0400 Body height 165.1 cm Shubham Chase Other [facility] Other 12-19-2022 09:45-0400 Body mass index (BMI) [Ratio] 39.27 kg/m2 Shubham Chase Other [facility] Other 12-19-2022 09:45-0400 Body weight 107.05 kg Shubham Rodrigues Other [facility] Other 07-22-2022 09:50-0400 Blood Pressure Location Jordi [facility] 07-22-2022 09:50-0400 Diastolic blood pressure 81 mm[Hg] Jordi Hedvig [facility] 07-22-2022 09:50-0400 Heart rate 72 /min Jodri Hedvig [facility] 07-22-2022 09:50-0400 Respiratory rate 16 /min Jordi Hedvig [facility] 07-22-2022 09:50-0400 Systolic blood pressure 129 mm[Hg] Jordi MAST [facility] 12-21-2021 17:00-0400 Diastolic blood pressure 82 mm[Hg] MD Jordi Mast Work Phone: [facility] 12-21-2021 17:00-0400 Heart rate 79 /min MD Jordi Mast Work Phone: [facility] 12-21-2021 17:00-0400 Respiratory rate 16 /min MD Jordi Mast Work Phone: [facility] 12-21-2021 17:00-0400 SaO2% (BldA) [Mass fraction] 100 % MD Jordi Mast Work Phone: [facility] 12-21-2021 17:00-0400 Systolic blood pressure 118 mm[Hg] MD Jordi Mast Work Phone: [facility] 12-21-2021 15:35-0400 Body weight 118 mg MD Jordi Mast Work Phone: [facility] 12-21-2021 14:57-0400 Body height 165.1 cm MD Jordi Mast Work Phone: [facility] 12-21-2021 14:57-0400 Body mass index (BMI) [Ratio] 38.5 kg/m2 MD Jordi Mast Work Phone: [facility] 12-21-2021 14:57-0400 Body weight 105 kg MD Jordi Mast Work Phone: [facility] 12-21-2021 12:56-0400 Body temperature 98.4 [degF] MD Jordi Mast Work Phone: [facility] 11-29-2021 14:51-0400 Diastolic blood pressure 84 mm[Hg] MD Jordi Mast Work Phone: [facility] 11-29-2021 14:51-0400 Heart rate 80 /min MD Jordi Mast Work Phone: [facility] 11-29-2021 14:51-0400 Respiratory rate 16 /min MD Jordi Mast Work Phone: [facility] 11-29-2021 14:51-0400 SaO2% (BldA) [Mass fraction] 98 % MD Jordi Mast Work Phone: [facility] 11-29-2021 14:51-0400 Systolic blood pressure 117 mm[Hg] MD Jordi Mast Work Phone: [facility] 11-29-2021 12:45-0400 Body height 165.1 cm MD Jordi Mast Work Phone: [facility] 11-29-2021 12:45-0400 Body mass index (BMI) [Ratio] 37.4 kg/m2 MD Jordi Mast Work Phone: [facility] 11-29-2021 12:45-0400 Body weight 102.05 kg MD Jordi Mast Work Phone: [facility] 11-29-2021 12:24-0400 Body temperature 97.9 [degF] MD Jordi Mast Work Phone: [facility] Encounters Encounter Date Encounter Type Care Provider Facility Start: 02-02-2024 ambulatory Jordi MAST Facility :[facility] Start: 05-12-2023 End: 05-13-2023 ambulatory [facility] Start: 05-12-2023 Encounter for gynecological examination (general) (routine) without abnormal findings [facility] Start: 02-10-2023 End: 02-10-2023 ambulatory Shubham Rodrigues Other [facility] Other Start: 02-10-2023 Postop follow up vis it related to original px Shubham Rodrigues [facility] Start: 02-10-2023 Telephone encounter Shubham Olexa [facility] Start: 01-27-2023 End: 01-28-2023 ambulatory Jordi MAST Facility:[facility] Start: 01-07-2023 End: 01-07-2023 ambulatory Shubham Olexa Other [facility] Other Start: 01-07-2023 Postop follow up vis it related to original px Shubham Olexa [facility] Start: 01-01-2023 End: 01-01-2023 ambulatory Sue Win Facility:[facility] Start: 12-31-2022 End: 12-31-2022 ambulatory Shubham Olexa Other [facility] Other Start: 12-31-2022 Telephone encounter Shubham Bullockxa [facility] Start: 12-25-2022 End: 12-25-2022 ambulatory Sue Win Facility:[facility] Start: 12-25-2022 End: 12-25-2022 ambulatory MD Sue Win Work Phone: [facility] Work Phone: Start: 12-25-2022 End: 12-25-2022 Patient encounter procedure MD Sue Win Work Phone: [facility] Work Phone: Start: 12-19-2022 End: 12-19-2022 ambulatory Shubham Olexa Other [facility] Other Start: 12-19-2022 Office outpatient vi sit 25 minutes Shubham Olexa [facility] Start: 11-25-2022 End: 11-25-2022 ambulatory Shubham Olexa Other [facility] Other Start: 11-25-2022 Office outpatient ne w 45 minutes Shubham Olexa [facility] Start: 08-12-2022 End: 08-13-[address] JORDI MAST Facility:[facility] Start: 07-22-2022 End: 07-23-2022 ambulatory Jordi MAST Facility:[facility] Start: 07-22-2022 End: 07-22-2022 Patient encounter procedure Jordi MAST [facility] Start: 07-18-2022 End: 07-19-[address] JORDI MAST Facility:[facility] Start: 05-15-2022 End: 05-16-[address] HARVEY BURCH Facility:[facility] Start: 03-27-2022 End: 03-28-[address] SUE WIN . Facility:[facility] Start: 12-21-2021 End: 12-21-2021 Admission to same day surgery center MD Jordi Mast Work Phone: [facility] Start: 12-19-2021 End: 12-19-2021 Patient encounter procedure MD Jordi Mast Work Phone: [facility] Start: 12-13-2021 End: 12-13-2021 Patient encounter procedure MD Jordi Mast Work Phone: [facility] Start: 12-12-2021 End: 12-13-[address] SUE WIN . Facility:[facility] Start: 12-10-2021 End: 12-11-[address] JORDI MAST Facility:[facility] Start: 11-29-2021 End: 11-29-2021 Admission to same day surgery center MD Jordi Mast Work Phone: [facility] Start: 11-27-2021 End: 11-27-2021 Patient encounter procedure MD Jordi Mast Work Phone: [facility] Start: 11-21-2021 End: 11-21-2021 Patient encounter procedure Jordi MAST [facility] [place] Start: 11-20-2021 End: 11-21-[address] JORDI MAST Facility:[facility] Start: 11-13-2021 End: 11-13-[address] SUE WIN . Facility:[facility] Start: 10-03-2021 End: 10-04-[address] SUE WIN . Facility:[facility] Start: 03-05-2021 End: 03-05-2021 Patient encounter procedure Sue Win MD Work Phone: [facility] Start: 03-05-2021 End: 03-05-2021 Subsequent hospital visit by physician Sue Win MD Work Phone: [facility] Comment on above: Vaginal discharge; Women's annual routine gynecological examination Start: 02-25-2019 End: 02-25-2019 [facility] Comment on above: Women's annual [...] ant neoplasm of breast Breast cancer screen [facility] Start: 03-13-2022 End: 03-13-2022 Patient encounter procedure 03/13/2022 Office Visit Obstetrics and Gynecology Rosaura Yang MD [address] [place] [address] [id number] [facility] Start: 02-25-2022 Screening for malign ant neoplasm of cervix [facility] Start: 12-21-2021 End: 12-21-2021 [facility] Work Phone: Start: 12-21-2021 Cystoscopy OR Cysto/Retro/Stent/Stone /Holmium Laser (Left) [facility] Start: 12-21-2021 Diagnostic radiograp hy of abdomen XR [facility] Start: 12-21-2021 End: 12-21-2021 Admission to same day surgery center Departed Surgical Day Care [facility] Start: 12-21-2021 Diagnostic radiograp hy of abdomen XR [facility] Start: 12-19-2021 End: 12-19-2021 Patient encounter procedure Departed Clinical [facility] Start: 12-13-2021 End: 12-13-2021 Patient encounter procedure Departed [facility] Start: 11-29-2021 [facility] Work Phone: Start: 11-29-2021 [facility] Work Phone: Start: 02-23-2021 Cervical cancer screen Cervical canc er screen [facility] [place] [place] Start: 02-11-2021 COVID-19 Vaccine (3 - Pfizer booster) COVID-19 Vaccine (3 - Pfizer booster) [facility] Start: 02-28-2020 Breast cancer screen Breast cancer s creen [place], [place] Start: 03-27-2019 Influenza vaccination Flu vaccine (# 1) [place], [place] Comment on above: Postponed from 12/27 (Not Indicated) Start: 03-25-2019 Diabetes screen Diabetes screen [place], [place] Comment on above: Postponed from 07/08 (Not Indicated) Start: 03-25-2019 DTaP/Tdap/Td vaccine (1 - Tdap) DTaP/Tdap/Td vaccine (1 - Tdap) [place], [place] Comment on above: Postponed from 07/08 (Patient Refused) Start: 03-25-2019 HIV screen HIV screen [place], [place] Comment on above: Postponed from 07/08 (Patient Refused) Start: 03-25-2019 Lipid screen Lipid screen [place], [place] Comment on above: Postponed from 07/08 (Not Indicated) Start: 2018 Colon cancer screen colonoscopy Colon cancer screen colonoscopy [place], [place] Start: 2018 Shingles Vaccine (1 of 2) Shingles Vaccine (1 of 2) [facility] Start: 2013 Screening for malign ant neoplasm of colon Colon cancer screen colonoscopy [facility] Start: 2008 Diabetes screen Diabetes screen [facility] Start: 2008 Lipid panel Lipid screen [facility] Start: 1998 Screening for malign ant neoplasm of cervix HPV (without or with Pap) [facility] Start: 07-09-1987 DTaP/Tdap/Td vaccine (1 - Tdap) DTaP/Tdap/Td vaccine (1 - Tdap) [facility] Start: 07-09-1983 HIV screening [facility] screen [facility] Start: 1968 Hepatitis C screening Hepatitis C sc reen [facility] End: 03-05-2021 Culture, Genital [facility] Work Phone: Comment on above: 1 Occurrences starti ng 03/05/2021 until 03/05/2021 End: 02-25-2019 Cytopathology procedure, preparation of smear, genital source [facility] Lab Routine Women's Annual Routine Gynecological Examination 1 Occurrences starting 02/25/2019 until 02/25/2019 [facility] [place], [place] Comment on above: 1 Occurrences starti ng 02/25/2019 until 02/25/2019 End: 03-05-2021 Cytopathology procedure, preparation of smear, genital source PAP SMEAR Lab Routine Women's annual routine gynecological examination 1 Occurrences starting 03/05/2021 until 03/05/2021 [facility] Work Phone: Comment on above: 1 Occurrences starti ng 03/05/2021 until 03/05/2021 Patient Education Cystoscopy (DC) [facility] Work Phone: Patient referral [facility] Work Phone: Immunizations Immunization Date Immunization Notes Care Provider Fa cili 09-29-2021 COVID-19 mRNA-[id number] (Moderna) MD Jordi Mast Work Phone: [facility] 02-08-2021 Influenza, injectabl e, Madin Mary Canine Kidney, preservative free, quadrivalent Sue Win MD Work Phone: [facility] Work Phone: 08-12-2020 COVID-19 mRNA-1273 (Moderna) MD Jordi Mast Work Phone: [facility] 08-12-2020 COVID-19, Pfizer, PF , 30mcg/0.3mL Sue Win MD Work Phone: [facility] 07-17-2020 SARS-CoV-2 (COVID-19 ) mRNA-1273 vaccine Jordi MAST [facility] 07-15-2020 COVID-19 mRNA-1273 (Moderna) MD Jordi Mast Work Phone: [facility] 07-15-2020 COVID-19, Pfizer, PF , 30mcg/0.3mL Sue Win MD Work Phone: [facility] Work Phone: 05-03-2020 Influenza, injectabl e, Madin Mary Canine Kidney, preservative free, quadrivalent Sue Win MD Work Phone: [employer] Work Phone: 02-08-2020 pneumococcal conjuga te vaccine, 13 valent Sue Win MD Work Phone: [employer] Work Phone: Payers Date Payer Category Payer Self-pay 2019 Unknown [employer] [address] xxxxxxxx 2019-Present [phone] [address] [place] [address] xxxxxxxx [id number] 1968 Unknown [id number] 2.16.840.1.128578.3.579.2.593 1968 Unknown [id number] 2.16.840.1.320756.3.579.2.593 1968 Unknown [id number] 2.16.840.1.118765.3.579.2.593 1968 Unknown [id number] 2.16.840.1.152391.3.579.2.593 1968 Unknown [id number] 2.16.840.1.092640.3.579.2.593 1968 Unknown [id number] 2.16.840.1.966224.3.579.2.593 1968 Unknown [id number] 2.16.840.1.990641.3.579.2.593 1968 Unknown [id number] 2.16.840.1.253203.3.579.2.593 1968 Unknown [id number] 2.16.840.1.341865.3.579.2.593 1968 Unknown [id number] 2.16.840.1.605343.3.579.2.727 1968 Unknown [id number] 2.16.840.1.113201.3.579.2.727 1968 Unknown [id number] 2.16.840.1.150031.3.579.2.727 1968 Unknown [id number] 2.16.840.1.905612.3.579.2.173 1959 Unknown [id number] 1.2.840.753916.1.13.239.2.7.3 .[id number] Unknown [id number] 2.16.840.1.791373.3.579.2.531 Unknown [id number] 2.16.840.1.249557.3.579.2.531 Social History Date Type Detail Facility Start: 02-25-2019 End: 12-25-2022 Tobacco smoking status NHIS Never smoker [place], [place] Start: 02-25-2019 Alcohol intake Yes [place], [place] Start: 1970 Sex Assigned At Not on file M [place], [place] Start: 07-30-2012 Tobacco use and exposure [facility]okeless [facility]: Start: 03-05-2021 Alcohol intake Current drinke r of alcohol (finding) [employer] Phone: Tobacco smoking status Never [facility] Start: 1970 Sex Assigned At Female [facility] Goals Date Patient Goal Desired Activity /State Functional Status Date Assessment Result Facility 07-22-2022 Functional Status N/A [facility] 11-21-2021 Functional Status N/A [facility] Clinical Notes 10-03-2021 to 02-10-2023 Note Date [...] Other specified postprocedural states (ICD-10 - Z98.890) [facility] Other 09-12-2023 Evaluation note* Encounter Date Diagnosis [...] Other specified postprocedural states (ICD-10 - Z98.890) [facility] Other 09-05-2023 Evaluation note* Encounter Date Diagnosis Assessment Notes Treatment Notes Treatment Clinical Notes Dec, Other specified postprocedural states (ICD-10 - Z98.890) [facility] Other 08-24-2023 Evaluation note* Encounter Date Diagnosis [...] right knee, subsequent encounter (ICD-10 - S83.241D) [facility] Other 07-31-2023 Evaluation note* Encounter Date Diagnosis [...] Pain in left knee (ICD-10 - M25.562) [facility] Other 03-27-2023 Hospital Discharge instructions Patient Education 07/22/2022 10:14:42 Kidney Stones, Vcow-hl-Xrel Kidney Stones Kidney stones are rock-like masses [...] Follow these instructions at home: Medicines Take kwfl-cxl-ctcneqh and prescription medicines only as told by [...] 09/30/2008 Document Revised: 08/31/2019 Document Reviewed: 08/31/2019 Elsevier Patient Education 2019 [employer]. Follow Up Care 12/26/2021 13:33:59 With:MANNIE ARREGUIN, Jordi Mckeon, URL Address: [facility] [address] [place] [address]- When:01/22/2023 Comments:ANNAMARIE [facility] [place] [id number] Hospital Discharge instructions Patient Education 11/21/2021 12:49:44 Kidney Stones, Zfee-cy-Nglw Kidney Stones Kidney stones are rock-like masses [...] Follow these instructions at home: Medicines Take ccvr-fpd-egibtlb and prescription medicines only as told by [...] 09/30/2008 Document Revised: 08/31/2019 Document Reviewed: 08/31/2019 [employer] Patient Education 2020 [employer] [facility]. Follow Up Care 11/14/2021 08:29:10 With:MANNIE ARREGUIN, Jordi Mckeon, URL Address: [address] [place] [address] When: Unknown [facility] 07-19-2022 NoteOPERATIVE NOTE OPERATION DATE: 11/13/2021 PREOPERATIVE [...] placed per urethra. A well lubricated, 22 Ivorian cystourethroscope was passed into the bladder. Moderately tight at the bladder neck. Once into the bladder, teran endoscopy reveals no tumors or stones or diverticula. She does have a moderate cystocele present. Left retrograde pyelogram was then performed utilizing a 6 Ivorian open ended ureteral catheter. The distal ureter [...] and then over the wire a 4.8 Ivorian, 22-30 cm Microvasive double J stent was [...] procedure well. [facility] and then back to PACU in satisfactory [...] the plan. CC: Sue Win M.D. : [facility] Signed and Approved by: DR JORDI MAST 11/29/2021 08:56:00[facility]06-08-2022 NotePROCEDURE: XR KNEE RT 4V or > COMPARISON: None. HISTORY: Pain in right knee FINDINGS: BONES:No acute fracture or dislocation. Mild osteoarthritis with marginal osteophyte formation SOFT TISSUES:Negative. No visible soft tissue swelling. EFFUSION:None visible. OTHER: Negative. IMPRESSION: Mild osteoarthritis Electronically authenticated by: KODY GARRISON Date: 2021-10-03 07:59[facility] No data available for this section [facility] Evaluation + Plan note Future Appointments Appointment Date:01/27/2023 08:00:00 AM Scheduled Provider:Jordi MAST MD Location:[facility] Appointment Type:URO Office Visit [facility] Evaluation note* Diagnosis Vaginal discharge Leukorrhea, not specified as infective Women's annual routine gynecological examination documented in this encounter [facility] Work Phone: evaluation noteNo assessment information available [facility] Work Phone: Evaluation noteNo InformationNort Gobbler Other History general Narrative - Reported* Type Description Date Medical History GERD Medical History Hypothyroidism [facility] Other History general Narrative - Reported* Type Description Date Medical History GERD Medical History Hypothyroidism Surgical History 1. LEFT knee arthros copy with partial medial meniscectomy 2. Chondral debridement medial femoral condyle, medial tibial plateau, medial patellar facet [facility] Other Progress note No data available for this section [facility] Assessments Diagnosis Women's annual routine gynecological examination Advance Directives No Advanced Directives Records FoundDocuments on File Type Date Recorded Patient Segment Block Layer Expl anation Advance Directives and Living Will Power of [employer] Documents on File Type Date Recorded Patient Segment Block Layer Expl anation ACP-Advance Directive ACP-Power of Carton Liner Advance Directive Response Recorded Date/ Time Advance [...] Care Teams (unrecognized sec tion and content) Building Associate Relationship Specialty Start Date End Date Sue Win MD [address] [place] [address] PCP - General Family Medicine 01/16/16 Team [...] section and content) DATE CREATED AUTHOR 08/18/2022 [facility] DATE CREATED AUTHOR AUTHOR'S ORGANIZ ATION 01/31/2023 [facility] DATE CREATED AUTHOR AUTHOR'S ORGANIZ ATION 02/07/2023 [facility] DATE CREATED AUTHOR AUTHOR'S ORGANIZ ATION 05/29/2023 [...] BE BASED ON THE PRIMARY CLINICAL RECORDS. [facility]. provides no warranty or guarantee of the accuracy or completeness of information in this document.
[2023-09-30 08:49] LABS: Free T4 1.14 ng/dL (0.76-1.46)
[2023-09-30 08:51] LABS: Free T3 2.26 pg/mL (2.18-3.98); Thyroid Stimulating Hormone 2.806 uIU/mL (0.358-3.740)
== END 2023-09-30 07:11 | disposition home or self-care (01) ==
LOC: LAB 07:11
PROVIDERS: PCP Family Medicine; Visit Provider Family Medicine
DX: E03.9 Hypothyroidism, unspecified (principal)
CPT/HCPCS: 36415; 84439; 84443; 84481

== ENCOUNTER 2023-10-16 12:39 | Outpatient (OUT) | payer OTHER, SELFPAY ==
--- NOTE | 2023-10-16 | US_ITS ---
Patient Name: KAROL MARCOS MR#: [id number] : 1970 Exam Date: 10/16/2023 Ordering Doctor: DR Neymar Win . RADIOLOGY REPORT PROCEDURE: MM TOMOSYNTHESIS DIAGNOSTIC RT, 10/16/2023, 12:48 US BREAST RT LIMITED, 10/16/2023, 14:09 COMPARISON: US BREAST RT LIMITED, 05/13/2023. MM DIAGNOSTIC MAMMO UNILAT RT, 05/13/2023. MM TOMOSYNTHESIS SCREENING BI, 04/30/2023. MG MAMM SCREEN 3D ANN-MARIE CAD, 03/27/2022. DIGITIZED_MAMMO, 07/21/2008. INDICATIONS: breast mass N63.0 Calculator Name NCI Breast Cancer Risk Assessment Tool 5 Year Breast Cancer Risk 2.00% Lifetime Breast Cancer Risk 13.30% Personal Breast Cancer No Personal Ovarian Cancer No Treatments None Family Cancers Father with bone & prostate cancer at age 69. LOCATION: [facility] BREAST COMPOSITION: The breasts are heterogeneously dense,which may obscure small masses. FINDINGS: DIAGNOSTIC CATEGORY 2--BENIGN FINDING: RIGHT BREAST: Standard mammography and tomography views of the right breast demonstrate stable appearance of the numerous microcalcifications within the upper-outer quadrant; no appreciable change. Ultrasound evaluation demonstrates 2 tiny hypoechoic areas; 1 at the 10 o'clock position, 4 x 3 x 2 millimeters and 1 at the 12 o'clock position, 4 x 4 x 3 millimeters. Both are too small to adequately determine if they are cystic or solid. No appreciable internal blood flow on color Doppler. Given the stability of the above findings, annual screening mammography is recommended. RECOMMENDATIONS: ROUTINE MAMMOGRAM AND CLINICAL EVALUATION IN 12 MONTHS. Active recommendations from prior exams: SHORT TERM FOLLOW-UP DIAGNOSTIC MAMMOGRAM RIGHT BREAST IN [#MONTHS] MONTHS. Due on 11/12/2023. PLEASE NOTE: A NORMAL MAMMOGRAM DOES NOT EXCLUDE THE POSSIBILITY OF BREAST CANCER. A CLINICALLY SUSPICIOUS PALPABLE LUMP SHOULD BE BIOPSIED. Dictated by: Tucker English M.D. on 10/16/2023 at 14:54 Approved by: Tucker English M.D. on 10/16/2023 at 14:59
--- NOTE | 2023-10-16 12:42 | MM_ITS ---
Patient Name: KAROL MARCOS MR#: [id number] : 1970 Exam Date: 10/16/2023 Ordering Doctor: DR Neymar Win . RADIOLOGY REPORT PROCEDURE: MM TOMOSYNTHESIS DIAGNOSTIC RT, 10/16/2023, 12:48 US BREAST RT LIMITED, 10/16/2023, 14:09 COMPARISON: US BREAST RT LIMITED, 05/13/2023. MM DIAGNOSTIC MAMMO UNILAT RT, 05/13/2023. MM TOMOSYNTHESIS SCREENING BI, 04/30/2023. MG MAMM SCREEN 3D ANN-MARIE CAD, 03/27/2022. DIGITIZED_MAMMO, 07/21/2008. INDICATIONS: breast mass N63.0 Calculator Name NCI Breast Cancer Risk Assessment Tool 5 Year Breast Cancer Risk 2.00% Lifetime Breast Cancer Risk 13.30% Personal Breast Cancer No Personal Ovarian Cancer No Treatments None Family Cancers Father with bone & prostate cancer at age 69. LOCATION: [facility] BREAST COMPOSITION: The breasts are heterogeneously dense,which may obscure small masses. FINDINGS: DIAGNOSTIC CATEGORY 2--BENIGN FINDING: RIGHT BREAST: Standard mammography and tomography views of the right breast demonstrate stable appearance of the numerous microcalcifications within the upper-outer quadrant; no appreciable change. Ultrasound evaluation demonstrates 2 tiny hypoechoic areas; 1 at the 10 o'clock position, 4 x 3 x 2 millimeters and 1 at the 12 o'clock position, 4 x 4 x 3 millimeters. Both are too small to adequately determine if they are cystic or solid. No appreciable internal blood flow on color Doppler. Given the stability of the above findings, annual screening mammography is recommended. RECOMMENDATIONS: ROUTINE MAMMOGRAM AND CLINICAL EVALUATION IN 12 MONTHS. Active recommendations from prior exams: SHORT TERM FOLLOW-UP DIAGNOSTIC MAMMOGRAM RIGHT BREAST IN [#MONTHS] MONTHS. Due on 11/12/2023. PLEASE NOTE: A NORMAL MAMMOGRAM DOES NOT EXCLUDE THE POSSIBILITY OF BREAST CANCER. A CLINICALLY SUSPICIOUS PALPABLE LUMP SHOULD BE BIOPSIED. Dictated by: Tucker English M.D. on 10/16/2023 at 14:54 Approved by: Tucker English M.D. on 10/16/2023 at 14:59
--- OUTSIDE RECORDS SUMMARY | 2023-10-16 12:52 | XMS_ITS | CCD ---
Author Organization [facility] Care Team Providers Care Offal Trimmer Name Role Phone Sue Win Primary Care Provider [phone] Sue Win Primary Care Physician MD Jordi Mast Attending Provider MD Sue Win Primary Care Provider [phone] YAIMA ., DR ROGERS Consulting Unavailable HOY [...] Attending Unavailable TIMMIS, DR GABRIEL Admitting Unavailable JASPER, DR KODY Pappas Consulting Unavailable HOY ., DR ROGERS Consulting Unavailable HOY ., DR ROGERS Attending Unavailable HOY ., DR ROGERS Admitting Unavailable HOY ., DR ROGERS Primary Care Unavailable MANNIE, DR JORDI Mckeon Consulting Unavailable MADDY LAGUNA Consulting Unavailable AGUBOSIM, DEYANIRA Consulting Unavailable SHRADDHA, BINOR Consulting Unavailable MANNIE, DR JORDI Mckeon Consulting Unavailable TYREEY ., [...] Unavailable YAIMA ., DR ROGERS Admitting Unavailable JASPER, DR KODY Pappas Consulting Unavailable MANNIE, DR [...] Unavailable MD Sue Win Primary Care Provider [phone] MD Shubham Rodrigues Attending Provider Jordi MAST [...] Medication Allergies] Propensity to adverse reactions (disorder) [facility] Repository Medications Current Medications Medication Drug Class(es) Dates Sig (Normalized) Sig (Original) acetaminophen 325 mg / HYDROcodone bitartrate 5 mg oral tablet (10 sources) Opioid Agonist Start: 12-31-2022 take 1 tablet by mouth every four hours as needed for pain HYDROcodone-Aceta minophen 5-325 MG 1 tablet as needed for pain Orally up to every 4 hrs for 5 days PB: [id number] Dec, Active Start: 11-29-2021 End: 12-13-2021 take [...] 12:00am Start: 02-09-2020 take 2 capsules by out once daily [facility] ESOMEPRAZOLE MAGNESIUM 20 [...] 11-16-2021 Episodic Other aftercare (1 source) Other nursing home (current) drug therapy; Translations: [OTH STANDARDS ANALYST CURRENT DRUG THERAPY] Onset: 11-16-2021 Episodic Other [...] Value Interpretation Reference Range Facility Cytology Reporton 01-15-2024 Cytology report Cyto stain.thin prep Doc (Cvx/Vag) (NOTE) Path Number: [id number] DIAGNOSIS Imaged ThinPrep Pap - Cervical (1 monolayer slide): Specimen Adequacy: Satisfactory for evaluation. -Endocervical/trans formation zone component is absent. Descriptive Diagnosis: Negative for intraepithelial lesion or malignancy. Cytotech Screener: EY Electronically Signed Out Margot Rand CT(ASCP) ey/05/28/2023 Source of Specimen: A: Imaged ThinPrep Pap - Cervical (1 monolayer slide) HPV Reflex?............ ..........HPV if Abnormal Clinical History Postmenopausal Z01.419 Routine project eng exam without abnormal findings LMP: 01/23/2016 Processing Lab: [address] [address] Interpretation performed at [address] [id number] This Pap Test has been evaluated with the assistance of the Industrial Technology Group[employer] Pap Test Imaging System. The Pap smear is a screening test primarily for squamous epithelial lesions, which is subject to both false negative and false positive results. Your patient should be reminded to consult you immediately if she experiences any suspicious signs or symptoms, regardless of her Pap smear result. GYNECOLOGIC CYTOLOGY REPORT Patient Name: KAROL PLASCENCIA [facility] Rec: [id number] [facility] ANATOMIC PATHOLOGY [address] [place] [address]. [address] [facility] Ambulatory Visit Summaryon 1 Ambulatory Visit Summary KAROL PLASCENCIA :1970 Visit Date:01/27/2023 Ambulatory Visit Instructions Your Diagnosis Kidney stone Tests Performed Urnls Dip Stick Auto w/o Microscopy POC 32792 XR Abdomen 1 View -- Results Pending [...] Jordi Mckeon Where: [facility] Patient Educationon 01-28-20 Patient Education Nephrology [...] Spinach (cooked), rhubarb, beets, sweet potatoes, and Mexican chard. ? Peanuts. ? Potato chips, welsh fries, and baked potatoes with skin on. ? Nuts and nut products. ? Chocolate. ? If you regularly take a diuretic medicine, make sure to eat at least 1 or 2 servings of fruits or vegetables that are high in potassium each day. These include: ? Avocado. ? Banana. ? [place], prune, carrot, or tomato juice. ? Baked [...] fish oil, or vitamin B6. ? Take voth-wnm-afvxalg and prescription medicines only as told by your health care provider. These include supplements. What foods should I limit? Limit your in (more content not included)... Normal [facility] Urology Office/Clinic Noteon 01-27-2023 Urology Office/Clinic Note Chief Complaint Pt is here for 6 month w/ KUB HPI Staff 52 yo female here for 6 month f/u with KUB. Previous Dx: kidney stone. S/p ESWL 12/21/21, Cysto/stent placement 11/29/21, and Cysto 11/13/21. Litholink done 08/12/22. KUB done 01/23/23 at [facility]. Dysuria: denies Incomplete bladder emptying: denies [...] In [address] [place] [address]- Additional Instructions: w/KUB Patient Education Dietary Guidelines to Help Prevent Kidney Stones IRadha, personally scribed for Dr. Mast on 01/27/2023 08:33:07. . Documentation recorded by the scribe, Radha Townsend, accurately reflects the services(s) I performed and decisions made by me. Authenticated by Dr. Mast on 01/27/2023 08:49:28. Portions of this record may have been created with voice recognition artificial intelligence software, specifically [employer], [employer] and or [employer]. Substitutions may have occurred due to the [...] mg T (more content not included)... Normal [facility] Comment on above: Result Comment: Elec tronically Signed By: Jordi MAST MD\.br\Date and Time Signed: 01/27/23 08:50 EDT\.br\Electronically Co-Signed By: Radha Townsend\.br\Date and Time Co-Signed: 01/27/23 08:33 EDT RAD - MISCon 01-24-2023 RAD - MISC [id number] 2C#1.00CD:127 Normal [facility] Alanine aminotransferase [En zymatic activity/volume] in Serum or PlasmaOrdered By: Shubham Rodrigues on 12-25-2022 ALT [Catalytic activity/Vol] 27 U/L 7-52 [facility] Albumin [Mass/volume] in Ser um or Plasma by Bromocresol green (BCG) dye binding methoOrdered By: Shubham Rodrigues on 12-25-2022 Albumin BCG dye [Mass/Vol] 3.9 g/dL 3.5-5.7 [facility] Alkaline phosphatase [Enzyma tic activity/volume] in Serum or PlasmaOrdered By: Shubham Rodrigues on 12-25-2022 ALP [Catalytic activity/Vol] 138 U/L 34-104 [facility] Aspartate aminotransferase [ Enzymatic activity/volume] in Serum or PlasmaOrdered By: Shubham Rodrigues on 12-25-2022 AST [Catalytic activity/Vol] 20 U/L 13-39 [facility] Basophils Auto (Bld) [#/Vol] Ordered By: Shubham Rodrigues on 12-25-2022 Basophils (Bld) [#/Vol] 0.1 10*3/uL 0.0-0.2 [facility] Basophils/100 WBC Auto (Bld) Ordered By: Shubham Rodrigues on 12-25-2022 Basophils/100 WBC (Bld) 0.8 % . [facility] Bilirubin.total [Mass/volume ] in Serum or PlasmaOrdered By: Shubham Rodrigues on 12-25-2022 Bilirubin [Mass/Vol] 0.4 mg/dL 0.3-1.0 [facility] CMP with reflex to A1Con Albumin [Mass/Vol] 3.9 g/dL Normal 3.5-5.7 [facility] Comment on above: Performed By: #### C BC, CMP wRFX A1C #### [facility] [address] [place] [address] Albumin/Globulin [Mass ratio] 1.4 {ratio} Normal [facility] Comment on above: Performed By: #### C BC, CMP wRFX A1C #### [facility] [address] [place] [address] ALP [Catalytic activity/Vol] 138 U/L High 34-104 [facility] Comment on above: Result Comment: PERF ORMED BY: [place] [address] PATHOLOGIST SAP SECURITY ARCHITECT MULUGETA ANGLIN M.D. Performed By: #### C BC, CMP wRFX A1C #### [facility] [address] ALT [Catalytic activity/Vol] 27 U/L Normal 7-52 [facility] Comment on above: Performed By: #### C BC, CMP wRFX A1C #### [facility] [address] [place] [address] [place] Anion gap [Moles/Vol] 10.0 mmol/L Normal 6.0-15.0 [facility] Comment on above: Performed By: #### C BC, CMP wRFX A1C #### [facility] [address] [place] [address] [place] AST [Catalytic activity/Vol] 20 U/L Normal 13-39 [facility] Comment on above: Performed By: #### C BC, CMP wRFX A1C #### [facility] [address] Bilirubin [Mass/Vol] 0.4 mg/dL Normal 0.3-1.0 [facility] Comment on above: Performed By: #### C BC, CMP wRFX A1C #### [facility] [address] Calcium [Mass/Vol] 9.1 mg/dL Normal 8.6-10.3 [facility] Comment on above: Performed By: #### C BC, CMP wRFX A1C #### [facility] [address] Chloride [Moles/Vol] 104 mmol/L Normal 98-107 [facility] Comment on above: Performed By: #### C BC, CMP wRFX A1C #### [facility] [address] CO2 [Moles/Vol] 30.2 mmol/L Normal 21.0-31.0 [facility] Comment on above: Performed By: #### C BC, CMP wRFX A1C #### [address] Creatinine [Mass/Vol] 0.69 mg/dL Normal 0.60-1.20 [facility] Comment on above: Performed By: #### C BC, CMP wRFX A1C #### [facility] [address] [place] [address] [place] GFR/1.73 sq M.predicted MDRD (S/P/Bld) [Vol rate/Area] mL/min/{1.73_m2} [facility] Comment on above: Performed By: #### C BC, CMP wRFX A1C #### [facility] [address] Globulin (S) [Mass/Vol] 2.8 g/dL Normal [facility] Comment on above: Performed By: #### C BC, CMP wRFX A1C #### [facility] [address] [place] [id number] [place] Glucose [Mass/Vol] 99 mg/dL Normal 70-100 [facility] Comment on above: Performed By: #### C BC, CMP wRFX A1C #### [facility] [address] [place] [address] [place] Potassium [Moles/Vol] 4.2 mmol/L Normal 3.5-5.1 [facility] Comment on above: Performed By: #### C BC, CMP wRFX A1C #### [facility] [address] [place] [address] [place] Protein [Mass/Vol] 6.7 g/dL Normal 6.4-8.9 [facility] Comment on above: Performed By: #### C BC, CMP wRFX A1C #### [facility] [address] [place] [address] [place] Sodium [Moles/Vol] 140 mmol/L Normal 136-145 [facility] Comment on above: Performed By: #### C BC, CMP wRFX A1C #### [facility] [address] [place] [address] [place] Urea nitrogen [Mass/Vol] 18 mg/dL Normal 7-25 [facility] Comment on above: Performed By: #### C BC, CMP wRFX A1C #### [facility] [address] [place] [id number] [place] Calcium [Mass/volume] in Ser um or PlasmaOrdered By: Shubham Rodrigues on 12-25-2022 Calcium [Mass/Vol] 9.1 mg/dL 8.6-10.3 [facility] Carbon dioxide, total [Moles /volume] in Serum or PlasmaOrdered By: Shubham Rodrigues on 12-25-2022 CO2 [Moles/Vol] 30.2 mmol/L 21.0-31.0 [facility] Chloride [Moles/volume] in S gerry or PlasmaOrdered By: Shubham Rodrigues on 12-25-2022 Chloride [Moles/Vol] 104 mmol/L 98-107 [facility] Complete Blood Count Auto Di ffon 12-25-2022 Basophils (Bld) [#/Vol] 0.1 10*3/uL Normal 0.0-0.2 [facility] Comment on above: Result Comment: PERF ORMED BY: [place] [address] PATHOLOGIST SAP SECURITY ARCHITECT MULUGETA ANGLIN M.D. Performed By: #### C BC, CMP wRFX A1C #### [facility] [address] [place] [address] [place] Basophils/100 WBC (Bld) 0.8 % Normal . [facility] Comment on above: Performed By: #### C BC, CMP wRFX A1C #### [facility] [address] Eosinophils (Bld) [#/Vol] 0.2 10*3/uL Normal 0.0-0.45 [facility] Comment on above: Performed By: #### C BC, CMP wRFX A1C #### [place] [address] [place] Eosinophils/100 WBC (Bld) 3.0 % Normal . [facility] Comment on above: Performed By: #### C BC, CMP wRFX A1C #### [address] Erythrocyte distribution width (RBC) [Ratio] 14.4 % Normal 11.9-15.3 [facility] Comment on above: Performed By: #### C BC, CMP wRFX A1C #### [place] [address] [place] Hematocrit (Bld) [Volume fraction] 39.1 % Normal 34.0-46.4 [facility] Comment on above: Performed By: #### C BC, CMP wRFX A1C #### [facility] [address] [place] [address] Hemoglobin (Bld) [Mass/Vol] 13.0 g/dL Normal 11.8-15.4 [facility] Comment on above: Performed By: #### C BC, CMP wRFX A1C #### [facility] [address] [place] [address] [place] Lymphocytes (Bld) [#/Vol] 1.5 10*3/uL Normal 1.00-4.8 [facility] Comment on above: Performed By: #### C BC, CMP wRFX A1C #### [facility] [address] Lymphocytes/100 WBC (Bld) 22.8 % Normal . [facility] Comment on above: Performed By: #### C BC, CMP wRFX A1C #### [facility] [address] MCH (RBC) [Entitic mass] 28.9 pg Normal 24.7-34.3 [facility] Comment on above: Performed By: #### C BC, CMP wRFX A1C #### [address] MCV (RBC) [Entitic vol] 86.9 fL Normal 80-100 [facility] Comment on above: Performed By: #### C BC, CMP wRFX A1C #### [address] Mean Corpuscular HGB Conc 33.2 g/dL Normal 32.0-35.0 [facility] Comment on above: Performed By: #### C BC, CMP wRFX A1C #### [place] [address] [place] Monocytes (Bld) [#/Vol] 0.3 10*3/uL Normal 0.0-0.8 [facility] Comment on above: Performed By: #### C BC, CMP wRFX A1C #### [place] [address] [place] Monocytes/100 WBC (Bld) 4.8 % Normal . [facility] Comment on above: Performed By: #### C BC, CMP wRFX A1C #### [facility] [address] [place] [address] [place] Neutrophils (Bld) [#/Vol] 4.7 10*3/uL Normal 1.8-7.7 [facility] Comment on above: Performed By: #### C BC, CMP wRFX A1C #### [facility] [address] Neutrophils/100 WBC (Bld) 68.6 % Normal . [facility] Comment on above: Performed By: #### C BC, CMP wRFX A1C #### [facility] [address] NRBC% 0.1 /100{WBC} Normal 0-0.5 [facility] Comment on above: Performed By: #### C BC, CMP wRFX A1C #### [facility] [address] Platelet mean volume (Bld) [Entitic vol] 7.2 fL Normal 6.3-10.7 [facility] Comment on above: Performed By: #### C BC, CMP wRFX A1C #### [facility] [address] Platelets (Bld) [#/Vol] 334 10*3/uL Normal 150-450 [facility] Comment on above: Performed By: #### C BC, CMP wRFX A1C #### [facility] [address] [place] [address] RBC (Bld) [#/Vol] 4.50 10*6/uL Normal 3.60-5.00 [facility] Comment on above: Performed By: #### C BC, CMP wRFX A1C #### [facility] [address] WBC (Bld) [#/Vol] 6.8 10*3/uL Normal 3.8-11.6 [facility] Comment on above: Performed By: #### C BC, CMP wRFX A1C #### [address] Creatinine [Mass/volume] in Serum or PlasmaOrdered By: Shubham Rodrigues on 12-25-2022 Creatinine [Mass/Vol] 0.69 mg/dL 0.60-1.20 [facility] ECG 12 lead ECGon 12-25-2022 ECG 12 lead ECG [facility] [place] [address] Electrocardiograph Report Signed Patient: Karol lPascencia MR#: [id number] 160 : 1970 Acct:[id number] Age/Sex: 52 / F ADM Date: 12/25/22 Loc: Room: Type: [facility] Attending Dr: Shubham Rodrigues MD Ordering Provider: [...] By Tl Bryan DO 12/25 1134 Normal [facility] Eosinophils Auto (Bld) [#/Vo l]Ordered By: Shubham Rodrigues on 12-25-2022 Eosinophils (Bld) [#/Vol] 0.2 10*3/uL 0.0-0.45 [facility] Eosinophils/100 WBC Auto (Bl d)Ordered By: Shubham Rodrigues on 12-25-2022 Eosinophils/100 WBC (Bld) 3.0 % . [facility] Erythrocyte distribution wid th Auto (RBC) [Ratio]Ordered By: Shubham Rodrigues on 12-25-2022 Erythrocyte distribution width (RBC) [Ratio] 14.4 % 11.9-15.3 [facility] Globulin Calc (S) [Mass/Vol] Ordered By: Shubham Rodrigues on 12-25-2022 Globulin (S) [Mass/Vol] 2.8 g/dL [facility] Glucose [Mass/volume] in Ser um or PlasmaOrdered By: Shubham Rodrigues on 12-25-2022 Glucose [Mass/Vol] 99 mg/dL 70-100 [facility] Hematocrit Auto (Bld) [Volum e fraction]Ordered By: Shubham Rodrigues on 12-25-2022 Hematocrit (Bld) [Volume fraction] 39.1 % 34.0-46.4 [facility] Hemoglobin [Mass/volume] in BloodOrdered By: Shubham Rodrigues on 12-25-2022 Hemoglobin (Bld) [Mass/Vol] 13.0 g/dL 11.8-15.4 [facility] Leukocytes [#/volume] correc darren for nucleated erythrocytes in Blood by Automated counOrdered By: Shubham Rodrigues on 12-25-2022 WBC corrected for nucl RBC Auto (Bld) [#/Vol] 6.8 10*3/uL 3.8-11.6 [facility] Lymphocytes Auto (Bld) [#/Vo l]Ordered By: Shubham Rodrigues on 12-25-2022 Lymphocytes (Bld) [#/Vol] 1.5 10*3/uL 1.00-4.8 [facility] Lymphocytes/100 WBC Auto (Bl d)Ordered By: Shubham Rodrigues on 12-25-2022 Lymphocytes/100 WBC (Bld) 22.8 % . [facility] MCH Auto (RBC) [Entitic mass ]Ordered By: Shubham Rodrigues on 12-25-2022 MCH (RBC) [Entitic mass] 28.9 pg 24.7-34.3 [facility] MCHC Auto (RBC) [Mass/Vol]Or dered By: Shubham Rodrigues on 12-25-2022 MCHC (RBC) [Mass/Vol] 33.2 g/dL 32.0-35.0 [facility] MCV Auto (RBC) [Entitic vol] Ordered By: Shubham Rodrigues on 12-25-2022 MCV (RBC) [Entitic vol] 86.9 fL 80-100 [facility] Monocytes Auto (Bld) [#/Vol] Ordered By: Shubham Rodrigues on 12-25-2022 Monocytes (Bld) [#/Vol] 0.3 10*3/uL 0.0-0.8 [facility] Monocytes/100 WBC Auto (Bld) Ordered By: Shubham Rodrigues on 12-25-2022 Monocytes/100 WBC (Bld) 4.8 % . [facility] Neutrophils Auto (Bld) [#/Vo l]Ordered By: Shubham Rodrigues on 12-25-2022 Neutrophils (Bld) [#/Vol] 4.7 10*3/uL 1.8-7.7 [facility] Neutrophils/100 WBC Auto (Bl d)Ordered By: Shubham Rodrigues on 12-25-2022 Neutrophils/100 WBC (Bld) 68.6 % . [facility] No Panel InformationOrdered By: Shubham Rodrigues on 12-25-2022 Estimated GFR (CKD-EPI) > 60.0 mL/Min [facility] Creatinine Clearance (Chem N/A [facility] Nucleated erythrocytes [Pres ence] in Blood by Automated countOrdered By: Shubham Rodrigues on 12-25-2022 Nucleated RBC Auto Ql (Bld) 0.1 /100{WBC} 0-0.5 [facility] Platelet mean volume Auto (B ld) [Entitic vol]Ordered By: Shubham Rodrigues on 12-25-2022 Platelet mean volume (Bld) [Entitic vol] 7.2 fL 6.3-10.7 [facility] Platelets Auto (Bld) [#/Vol] Ordered By: Shubham Rodrigues on 12-25-2022 Platelets (Bld) [#/Vol] 334 10*3/uL 150-450 [facility] Potassium [Moles/volume] in Serum or PlasmaOrdered By: Shubham Rodrigues on 12-25-2022 Potassium [Moles/Vol] 4.2 mmol/L 3.5-5.1 [facility] Protein [Mass/volume] in Ser um or PlasmaOrdered By: Shubhma Rodrigues on 12-25-2022 Protein [Mass/Vol] 6.7 g/dL 6.4-8.9 [facility] RBC Auto (Bld) [#/Vol]Ordere d By: Shubham Rodrigues on 12-25-2022 RBC (Bld) [#/Vol] 4.50 10*6/uL 3.60-5.00 [facility] Serum or plasma albumin/glob ulin mass ratioOrdered By: Shubham Rodrigues on 12-25-2022 Albumin/Globulin [Mass ratio] 1.4 {ratio} [facility] Serum or plasma anion gap de terminationOrdered By: Shubham Rodrigues on 12-25-2022 Anion gap [Moles/Vol] 10.0 mmol/L 6.0-15.0 [facility] Sodium [Moles/volume] in Ser um or PlasmaOrdered By: Shubham Rodrigues on 12-25-2022 Sodium [Moles/Vol] 140 mmol/L 136-145 [facility] Urea nitrogen [Mass/volume] in Serum or PlasmaOrdered By: Shubham Rodrigues on 12-25-2022 Urea nitrogen [Mass/Vol] 18 mg/dL 7-25 [facility] WBC Auto (Bld) [#/Vol]Ordere d By: Shubham Rodrigues on 12-25-2022 WBC (Bld) [#/Vol] 6.8 10*3/uL 3.8-11.6 [facility] Lab Reportson 08-21-2022 Lab Reports [id number] 59#1.00CD:127 Normal [facility] Lab Reportson 08-14-2022 Lab Reports [id number] 16#1.00CD:127 Normal [facility] PTH INTACTon 08-13-2022 PTH, Intact 59 pg/mL Normal 15-65 [facility] Comment on above: Performed By: #### P THINT ####[facility] [address] [place] [id number]. Mikaela Caldwell BUNon 08-12-2022 Urea nitrogen [Mass/Vol] 12.0 mg/dL Normal 7.0-18.0 [facility] Comment on above: Performed By: #### C A, K, CL, BUN, URIC, CO2, CREA, NA ####[facility] [address] [place], [place] [address]Qw. Mikaela Caldwell CALCIUMon 08-12-2022 Calcium [Mass/Vol] 9.0 mg/dL Normal 8.5-10.1 [facility] Comment on above: Performed By: #### C A, K, CL, BUN, URIC, CO2, CREA, NA ####[facility] [address] [place] [address]Dr. Mikaela Caldwell CHLORIDEon 08-12-2022 Chloride [Moles/Vol] 107 mmol/L Normal 98-[address] [facility] Comment on above: Performed By: #### C A, K, CL, BUN, URIC, CO2, CREA, NA ####[facility] [address] [place] [address]Dr. Mikaela Caldwell CO2on 08-12-2022 CO2 [Moles/Vol] 29.7 mmol/L Normal 21.0-32.0 [facility] Comment on above: Performed By: #### C A, K, CL, BUN, URIC, CO2, CREA, NA ####[facility] [address] [place], [place] [address]Dr. Mikaela Caldwell CREATININEon 08-12-2022 Creatinine [Mass/Vol] 0.85 mg/dL Normal 0.55-1.02 [facility] Comment on above: Performed By: #### C A, K, CL, BUN, URIC, CO2, CREA, NA ####[facility] [address] [place] [address] EGFR-AF [place] >60 Normal >=60 [facility] Comment on above: Performed By: #### C A, K, CL, BUN, URIC, CO2, CREA, NA ####[facility] [address] [place] [address]Dr. Mikaela [facility] EGFR-NON AF [place] >60 Normal >=[address] [facility] Comment on above: Performed By: #### C A, K, CL, BUN, URIC, CO2, CREA, NA ####[facility] [address] [place] [address]Dr. Mikaela Caldwell NAon 08-12-2022 Sodium [Moles/Vol] 142 mmol/L Normal 136-145 [facility] Comment on above: Performed By: #### C A, K, CL, BUN, URIC, CO2, CREA, NA ####[facility] [address] [place], [place] [address]Tm. Mikaela Caldwell POTASSIUMon 08-12-2022 Potassium [Moles/Vol] 3.9 mmol/L Normal 3.5-5.1 [facility] Comment on above: Performed By: #### C A, K, CL, BUN, URIC, CO2, CREA, NA ####[facility] [address] [place], [place] [address]Za. Mikaela Caldwell URIC ACID SERUMon 08-12-2022 Urate [Mass/Vol] 3.8 mg/dL Normal 2.6-6.0 [facility] Comment on above: Performed By: #### C A, K, CL, BUN, URIC, CO2, CREA, NA ####[facility] [address] [place], [place] [address]Uz. Mikaela Caldwell Formson 07-24-2022 Forms [id number] 217#1.00CD:127 Normal [facility] Patient Educationon 07-23-19 23 Patient Education Urology [...] these instructions at home: Medicines ? Take qpcx-upo-ifuubsv and prescription medicines only as told by [...] 09/30/2008 Document Revised: 08/31/2019 Document Reviewed: 08/31/2019 [employer] Patient Education ? 2019 [employer] [facility] [facility] [id number] [facility] Urology Office/Clinic Noteon 07-22-2022 Urology Office/Clinic [...] 01/22/[address] [address]- Additional Instructions: KUB Patient Education Kidney Stones, [id number] Charisma Carpenter , personally scribed for Dr. [...] Protein Urine Dipstick: Negative (07/22/22 09:47:00) Specific [place] Urine Dipstick: <=1.005 (07/22/22 09:47:00) Urine Appearance Urine Dipstick: Clear (07/22/22 09:47:00) Urine Color Urine Dipstick: Light yellow (07/22/22 09:47:00) Urobilinogen Urine Dipstick: Normal 0.2-1 EU/dl (07/22/22 09:47:00) pH Urine Dipstick: 5.5 (07/22/22 09:47:00) Diagnostic (more content not included)... Normal [facility] Comment on above: Result Comment: Elec tronically [...] Date: 2022-07-18 09:03 Normal [facility] Provider Letteron 05-31-2022 Provider Letter May 31, 2022 KAROL PLASCENCIA [address] [place] [address] KAROL PLASCENCIA 1970 Dear Karol, We have [...] prompt attention to this matter. Please call [phone] Sincerely, [facility] [address] [place] [place] [address] x 1 Normal [facility] US THYROIDon 05-15-2022 US THYROID EXAMINATION: US [...] IMPRESSION: Bilateral stable thyroid nodules TI-RADS: The [employer] TI-RADS committee's white paper recommendations for thyroid lesions classified as TR4 (moderately suspicious) are listed below: > 1.0 cm. Follow-up ultrasound in 1, 2, 3, and 5 years. > 1.5 cm. FNA. J. Am Ellen Radiol 2017;14:587-595. Electronically authenticated by: KODY GARRISON Date: 2022-05-15 11:41 Normal [facility] MG MAMM SCREEN 3D ANN-MARIE CADon 03-27-2022 MG MAMM SCREEN 3D ANN-MARIE CAD Patient: KAROL PLASCENCIA Exam Date: 03/27/2022 : 1970 Gender:F Ordering : DR SUE WIN . Admission #: [id number] Family : Order #: [id number] CLICK HERE TO VIEW EXAM RADIOLOGY REPORT [...] at age 67. LOCATION: [facility] BREAST COMPOSITION: Heterogeneously dense,which may [...] M.D. on 03/27/2022 at 15:33 Normal [facility] Ammonium urate crystals dete ction in stone by infrared spectroscopyOrdered By: Jordi Mast on 12-21-2021 Ammonium urate crystals Infrared spectroscopy Ql (Stone) N/A [facility] Calcium bilirubinate measure mentOrdered By: Jordi Mast on 12-21-2021 Calcium bilirubinate (Stone) [Mass fraction] N/A [facility] Calcium carbonate measuremen tOrdered By: Jordi Mast on 12-21-2021 Calcium carbonate (Stone) [Mass fraction] N/A [facility] Calcium hydrogen phosphate d ihydrate/Total in StoneOrdered By: Jordi Mast on 12-21-2021 Calcium hydrogen phosphate dihydrate (Stone) [Mass fraction] N/A [facility] Calcium oxalate dihydrate cr ystals detection in stone by infrared spectroscopyOrdered By: Jordi Mast on 12-21-2021 Calcium oxalate dihydrate crystals Infrared spectroscopy Ql (Stone) 20 % . [facility] Calcium oxalate monohydrate/ Total in StoneOrdered By: Jordi Mast on 12-21-2021 Calcium oxalate monohydrate (Stone) [Mass fraction] 80 % . [facility] Calcium phosphate measuremen tOrdered By: Jordi Mast on 12-21-2021 Calcium phosphate (Stone) [Mass fraction] N/A [facility] Calculus analysis interpreta tion in stoneOrdered By: Jordi Mast on 12-21-2021 Calculus analysis [Interp] N/A [facility] Calculus analysis [Interp] See comment . [facility] Comment on above: Calculus received in liquid. Wet calculi must be dried before analysis, which delays reporting of results. Leaving calculi in liquid (such as water, saline, blood, urine) may lead to changes in composition. Physician questions regarding Calculi Analysis contact [employer] at: [phone]. Calculi report will follow via computer, mail or christmas tree grower delivery. Calculus analysis with calcu guera photography interpretation in stoneOrdered By: Jordi Mast on 12-21-2021 Calculus analysis with calculus photography [Interp] See comment . [facility] Comment on above: Photograph will foll ow under a separate cover Cellular material measuremen t in stone by estimated (mass/mass)Ordered By: Jordi Mast on 12-21-2021 Cellular material Est (Stone) [Mass/Mass] N/A [facility] Cholesterol/Total in StoneOr dered By: Jordi Mast on 12-21-2021 Cholesterol (Stone) [Mass fraction] N/A [facility] Composition of stoneOrdered By: Jordi Mast on 12-21-2021 Composition Nom (Stone) See comment . [facility] Comment on above: Percentage (Represen ts the % composition) Cystine measurementOrdered B y: Jordi Mast on 12-21-2021 Cystine (Unsp spec) [Moles/Vol] N/A [facility] Determination of color of ca lculusOrdered By: Jordi Mast on 12-21-2021 Color (Stone) Brown . [facility] Hydroxyapatite [Energy Diffe rence] in 24 hour UrineOrdered By: Jordi Mast on 12-21-2021 Hydroxyapatite (24H U) [Energy diff] N/A [facility] Measurement of proportion of calculus composed of dried blood (mass/mass)Ordered By: Jordi Mast on 12-21-2021 Blood.dried (Stone) [Mass fraction] N/A [facility] Newberyite/Total in StoneOrd ered By: Jordi Mast on 12-21-2021 Newberyite (Stone) [Mass fraction] N/A [facility] No Panel InformationOrdered By: Jordi Mast on 12-21-2021 Stone 2,8 Dihydroxyadenine N/A [facility] Stone Analysis Disclaimer See comment . [facility] Comment on above: This test was develo ped and its performance characteristics determined by [employer] It has not been cleared or approved by the Food and Drug Administration. Performed at: [facility] [[email or web address]] Stone Analysis [address] [place] [address] [place] [id number] Fiber Picker: Jayson Santos PhD, Phone: [phone] Stone Bilirubinate N/A [facility] Stone Calcium Palmitate N/A [facility] Stone Calcium Stearate N/A [facility] Stone Carbonate Apatite N/A [facility] Stone Drug or Metabolite N/A [facility] Stone Other Constituent N/A [facility] Stone Xanthine N/A [facility] Size [Entitic volume] of Sto neOrdered By: Jordi Mast on 12-21-2021 Size (Stone) [Entitic vol] 5x3 mm . [facility] Comment on above: Multiple pieces rece ived. Dimensions of the largest piece reported. Sodium urate crystals detect ion in stone by infrared spectroscopyOrdered By: Jordi Mast on 12-21-2021 Sodium urate crystals Infrared spectroscopy Ql (Stone) N/A [facility] Specimen source subject [Typ e]Ordered By: Jordi Mast on 12-21-2021 Specimen source subject Nom See comment . [facility] Comment on above: Left Ureter Triamterene measurement in c alculusOrdered By: Jordi Mast on 12-21-2021 Triamterene (Stone) [Mass fraction] N/A [facility] Triple phosphate/Total in St oneOrdered By: Jordi Mast on 12-21-2021 Triple phosphate (Stone) [Mass fraction] N/A [facility] Uric acid dihydrate crystals detection in stone by infrared spectroscopyOrdered By: Jordi Mast on 12-21-2021 Urate dihydrate crystals Infrared spectroscopy Ql (Stone) N/A [facility] COVID-19 Positive/NegativeOr dered By: Jordi Mast on 12-19-2021 SARS-CoV-2 (COVID-19) N gene ISABELLA+probe Ql (Resp) Negative Negative [facility] Comment on above: Testing for SARS-CoV -2 by RT-PCR This test was developed and its performance characteristics determined by [employer] ([place]) and validated at the [facility]. This test has not been FDA cleared [...] aPTT Coag (PPP) [Time] 40.1 s 25.1-36.5 [facility] Basophils Auto (Bld) [#/Vol] Ordered By: Jordi Mast on 12-13-2021 Basophils (Bld) [#/Vol] 0.1 10*3/uL 0.0-0.2 [facility] Basophils/100 WBC Auto (Bld) Ordered By: Jordi Mast on 12-13-2021 Basophils/100 WBC (Bld) 0.8 % . [facility] Blood hemoglobin measurement (mass/volume)Ordered By: Jordi Mast on 12-13-2021 Hemoglobin (Bld) [Mass/Vol] 12.8 g/dL 11.8-15.4 [facility] Blood leukocytes automated c ount (number/volume)Ordered By: Jordi Mast on 12-13-2021 WBC (Bld) [#/Vol] 6.9 10*3/uL 4.5-11.0 [facility] Creatinine and Glomerular fi ltration rate.predicted panel (S/P/Bld)Ordered By: Jordi Mast on 12-13-2021 Creatinine [Mass/Vol] 0.76 mg/dL 0.44-1.03 [facility] Eosinophils Auto (Bld) [#/Vo l]Ordered By: Jordi Mast on 12-13-2021 Eosinophils (Bld) [#/Vol] 0.3 10*3/uL 0.0-0.45 [facility] Eosinophils/100 WBC Auto (Bl d)Ordered By: Jordi Mast on 12-13-2021 Eosinophils/100 WBC (Bld) 4.9 % . [facility] Erythrocyte distribution wid th Auto (RBC) [Ratio]Ordered By: Jordi Mast on 12-13-2021 Erythrocyte distribution width (RBC) [Ratio] 14.0 % 11.9-15.3 [facility] Estimated glomerular filtrat ion rate (GFR) non- AmericanOrdered By: Jordi Mast on 12-13-2021 GFR/1.73 sq M.predicted among non-blacks MDRD (S/P/Bld) [Vol rate/Area] > 60 mL/Min [facility] Hematocrit Auto (Bld) [Volum e fraction]Ordered By: Jordi Mast on 12-13-2021 Hematocrit (Bld) [Volume fraction] 39.2 % 34.0-46.4 [facility] Laboratory - CoagulationOrde red By: Jordi Mast on 12-13-2021 PT Coag (PPP) [Time] 11.9 s 9.0-12.9 [facility] Laboratory - Hematology and Cell countsOrdered By: Jordi Mast on 12-13-2021 Nucleated RBC/100 WBC (Bld) [Ratio] 0.1 % 0-0.5 [facility] Lymphocytes Auto (Bld) [#/Vo l]Ordered By: Jordi Mast on 12-13-2021 Lymphocytes (Bld) [#/Vol] 2.0 10*3/uL 1.00-4.8 [facility] Lymphocytes/100 WBC Auto (Bl d)Ordered By: Jordi Mast on 12-13-2021 Lymphocytes/100 WBC (Bld) 28.9 % . [facility] MCH Auto (RBC) [Entitic mass ]Ordered By: Jordi Mast on 12-13-2021 MCH (RBC) [Entitic mass] 28.8 pg 24.7-34.3 [facility] MCHC Auto (RBC) [Mass/Vol]Or dered By: Jordi Mast on 12-13-2021 MCHC (RBC) [Mass/Vol] 32.6 g/dL 32.0-35.0 [facility] MCV Auto (RBC) [Entitic vol] Ordered By: Jordi Mast on 12-13-2021 MCV (RBC) [Entitic vol] 88.1 fL 80-100 [facility] Monocytes Auto (Bld) [#/Vol] Ordered By: Jordi Mast on 12-13-2021 Monocytes (Bld) [#/Vol] 0.4 10*3/uL 0.0-0.8 [facility] Monocytes/100 WBC Auto (Bld) Ordered By: Jordi Mast on 12-13-2021 Monocytes/100 WBC (Bld) 6.5 % . [facility] Neutrophils Auto (Bld) [#/Vo l]Ordered By: Jordi Mast on 12-13-2021 Neutrophils (Bld) [#/Vol] 4.1 10*3/uL 1.8-7.7 [facility] Neutrophils/100 WBC Auto (Bl d)Ordered By: Jordi Mast on 12-13-2021 Neutrophils/100 WBC (Bld) 58.9 % . [facility] No Panel InformationOrdered By: Jordi Mast on 12-13-2021 Estimated GFR () > 60 mL/Min [facility] Comment on above: GFR estimated refere nce range: According to KDOQI guidelines, <60 ml/min/1.73m2 is sufficient to diagnose a patient with chronic kidney disease. Pharmacy Creatinine Clearance (Chem N/A [facility] Platelet mean volume Auto (B ld) [Entitic vol]Ordered By: Jordi Mast on 12-13-2021 Platelet mean volume (Bld) [Entitic vol] 7.5 fL 6.3-10.7 [facility] Platelet poor plasma interna tional normalized ratio (INR) by coagulation assay (relatOrdered By: Jordi Mast on 12-13-2021 INR Coag (PPP) [Relative time] 1.1 {INR} [facility] Comment on above: INR Therapeutic Rang e [...] 12-13-2021 Platelets (Bld) [#/Vol] 345 10*3/uL 150-450 [facility] RBC Auto (Bld) [#/Vol]Ordere d By: Jordi Mast on 12-13-2021 RBC (Bld) [#/Vol] 4.45 10*6/uL 3.60-5.00 [facility] Serum or plasma calcium cielo urement (mass/volume)Ordered By: Jordi Mast on 12-13-2021 Calcium [Mass/Vol] 9.2 mg/dL 8.2-10.2 [facility] Serum or plasma chloride ankita surement (moles/volume)Ordered By: Jordi Mast on 12-13-2021 Chloride [Moles/Vol] 102 mmol/L 95-114 [facility] Serum or plasma glucose cielo urement (mass/volume)Ordered By: Jordi Mast on 12-13-2021 Glucose [Mass/Vol] 90 mg/dL 70-100 [facility] Comment on above: ADA recommended refe rence range Random Glucose Reference Range is dependent on time and content of last meal. Glucose of more than 200 mg/dL in a nonstressed, ambulatory subject supports the diagnosis of Diabetes Mellitus. Serum or plasma potassium me asurement (moles/volume)Ordered By: Jordi Mast on 12-13-2021 Potassium [Moles/Vol] 3.6 mmol/L 3.5-5.1 [facility] Serum or plasma sodium measu rement (moles/volume)Ordered By: Jordi Mast on 12-13-2021 Sodium [Moles/Vol] 139 mmol/L 136-146 [facility] Serum or plasma total carbon dioxide measurement (moles/volume)Ordered By: Jordi Mast on 12-13-2021 CO2 [Moles/Vol] 27.4 mmol/L 22.0-30.0 [facility] Serum or plasma urea nitroge n measurement (mass/volume)Ordered By: Jordi Mast on 12-13-2021 Urea nitrogen [Mass/Vol] 13 mg/dL 9-23 [facility] MRI KNEE RT WO CONon 022 MRI [...] ENGLISH Date: 2021-12-12 17:04 Normal [facility] XR KUB 1 VIEWon 12-10-2021 XR [...] by: ZENAIDA ENGLISH Date: 2021-12-10 07:56 Normal [facility] COVID-19 SOFIAOrdered By: Jeison Mast on 11-27-2021 SARS-CoV+SARS-CoV-2 (COVID-19) Ag IA.rapid Ql (Resp) Negative Negative [facility] Comment on above: This is a duplicate Mony SARS Antigen (MILES) result to be used for statistical tracking purpose only. No Panel InformationOrdered By: Jordi Mast on 11-27-2021 SARS Antigen (LFIA) [facility] XR KUB 1 VIEWon 07-26-2022 XR KUB 1 VIEW EXAMINATION: XR KUB [...] ENGLISH Date: 2021-11-20 18:35 Normal [facility] CULTURE URINEon 11-15-2021 CULTURE URINE Isolate [...] ethoxazole <=20 S F Normal [facility] Comment on above: Performed By: #### C VDTBH #### [facility] [address] [address] [address] Mikaela Caldwell CARDIAC EDGARDO 3-6on 2 CK [Catalytic activity/Vol] 54 U/L Normal 26-192 [facility] Comment on above: Performed By: #### C VDTBH #### [facility] [address] [address] [address] Mikaela Caldwell CK.MB [Mass/Vol] 2.05 ng/mL Normal <=3.60 [facility] Comment on above: Performed By: #### C VDTBH #### [facility] [address] [address] [address] Mikaela Caldwell HSTROP 6.5 pg/mL Normal 4.0-51.[address] [facility] Comment on above: Result Comment: CUT- OFF POINTS HAVE BEEN ESTABLISHED BASED ON THE FOURTH UNIVERSAL DEFINITIONS OF MYOCARDIAL INFARCTION. THE UPPER REFERENCE LIMIT (URL) OF TROPONIN, DEFINED THE 99TH PERCENTILE OF cTnI DISTRIBUTION IN A REFERENCE POPULATION, HAS BEEN CONFIRMED THE DECISION THRESHOLD FOR CA DIAGNOSIS. Performed By: #### C VDTBH #### [facility] [address] [address] [address] Mikaela Caldwell CK [Catalytic activity/Vol] 63 U/L Normal 26-[address] [facility] Comment on above: Performed By: #### C MREP #### [facility] [address] [address] [address] Mikaela Caldwell CK.MB [Mass/Vol] 2.28 ng/mL Normal <=3.60 [facility] Comment on above: Performed By: #### C MREP #### [facility] [address] [address] [address] Mikaela Caldwell HSTROP 5.1 pg/mL Normal 4.0-51.[address] [facility] Comment on above: Result Comment: CUT- OFF POINTS HAVE BEEN ESTABLISHED BASED ON THE FOURTH UNIVERSAL DEFINITIONS OF MYOCARDIAL INFARCTION. THE UPPER REFERENCE LIMIT (URL) OF TROPONIN, DEFINED THE 99TH PERCENTILE OF cTnI DISTRIBUTION IN A REFERENCE POPULATION, HAS BEEN CONFIRMED THE DECISION THRESHOLD FOR CA DIAGNOSIS. Performed By: #### C MREP #### [facility] [address] [address] [address] Mikaela Caldwell CARDIAC EDGARDO ADMITon 022 CK [Catalytic activity/Vol] 77 U/L Normal 26-[address] [facility] Comment on above: Performed By: #### C MADM, LIPA, CMP #### [facility] [address] [address] [address] Mikaela Caldwell CK.MB [Mass/Vol] 2.40 ng/mL Normal <=3.60 [facility] Comment on above: Performed By: #### C MADM, LIPA, CMP #### [facility] [address] [address] [address] Mikaela Caldwell HSTROP 5.8 pg/mL Normal 4.0-51.3 [facility] Comment on above: Result Comment: CUT- OFF POINTS HAVE BEEN ESTABLISHED BASED ON THE FOURTH UNIVERSAL DEFINITIONS OF MYOCARDIAL INFARCTION. THE UPPER REFERENCE LIMIT (URL) OF TROPONIN, DEFINED THE 99TH PERCENTILE OF cTnI DISTRIBUTION IN A REFERENCE POPULATION, HAS BEEN CONFIRMED THE DECISION THRESHOLD FOR CA DIAGNOSIS. Performed By: #### C MADM, LIPA, CMP #### [facility] [address] [place] [address] Dr. Mikaela Caldwell JOYCE 29 ng/mL Normal 9-82 [facility] Comment on above: Performed By: #### C MADM, LIPA, CMP #### [facility] [address] [place] [address] Dr. Mikaela Caldwell CBC AUTO DIFFon 11-13-2021 BASO # 0.1 103/ul Normal 0.0-0.1 [facility] Comment on above: Performed By: #### C BC #### [facility] [address] [place] [address] Dr. Mikaela Caldwell Basophils/100 WBC (Bld) 0.5 % Normal 0.2-2.0 [facility] Comment on above: Performed By: #### C BC #### [facility] [address] [place] [address] Dr. Mikaela Caldwell EO # 0.3 103/ul Normal 0.0-0.7 [facility] Comment on above: Performed By: #### C BC #### [facility] [address] [address] [address] Mikaela Caldwell Eosinophils/100 WBC (Bld) 2.1 % Normal 0.9-7.0 [facility] Comment on above: Performed By: #### C BC #### [facility] [address] [place] [address] Dr. Mikaela Caldwell Erythrocyte distribution width (RBC) [Ratio] 13.2 % Normal 11.0-15.0 [facility] Comment on above: Performed By: #### C BC #### [facility] [address] [place] [address] Dr. Mikaela Caldwell Hematocrit (Bld) [Volume fraction] 40.9 % Normal 36.0-48.0 [facility] Comment on above: Performed By: #### C BC #### [facility] [address] [place] [address] Dr. Mikaela Caldwell Hemoglobin (Bld) [Mass/Vol] 13.1 g/dL Normal 12.0-16.0 [facility] Comment on above: Performed By: #### C BC #### [facility] [address] [place] [address] Dr. Mikaela Caldwell IG # 0.07 10e3/ul Critically high 0.00-0.03 [facility] Comment on above: Performed By: #### C BC #### [facility] [address] [place] [address] Dr. Mikaela Caldwell IG % 0.5 % Normal 0.0-0.5 [facility] Comment on above: Performed By: #### C BC #### [facility] [address] [place] [address] Dr. Mikaela Caldwell LYMPH # 1.8 103/ul Normal 1.2-3.8 [facility] Comment on above: Performed By: #### C BC #### [facility] [address] [place] [address] Dr. Mikaela Caldwell Lymphocytes/100 WBC (Bld) 12.5 % Critically low 20.5-60.0 [facility] Comment on above: Performed By: #### C BC #### [facility] [address] [place] [address] Dr. Mikaela Caldwell MANUAL DIFF REQ NO Normal [facility] Comment on above: Performed By: #### C BC #### [facility] [address] [place] [address] Dr. Mikaela Caldwell MCH (RBC) [Entitic mass] 29.2 pg Normal 26.7-34.0 [facility] Comment on above: Performed By: #### C BC #### [facility] [address] [address] [address] Mikaela Caldwell MCHC (RBC) [Mass/Vol] 32.0 g/dL Normal 29.9-35.2 [facility] Comment on above: Performed By: #### C BC #### [facility] [address] [address] [address] Mikaela Caldwell MCV (RBC) [Entitic vol] 91.1 fL Normal 81.0-99.0 [facility] Comment on above: Performed By: #### C BC #### [facility] [address] [address] [address] Mikaela Caldwell MONO # 0.7 103/ul Normal 0.3-0.8 [facility] Comment on above: Performed By: #### C BC #### [facility] [address] [place] [address] Dr. Mikaela Caldwell Monocytes/100 WBC (Bld) 5.1 % Normal 1.7-12.0 [facility] Comment on above: Performed By: #### C BC #### [facility] [address] [address] [address] Mikaela Caldwell NEUT # 11.1 103/ul Critically high 1.4-6.5 [facility] Comment on above: Performed By: #### C BC #### [facility] [address] [place] [address] Dr. Mikaela Caldwell Neutrophils/100 WBC (Bld) 79.3 % Critically high 43.0-75.0 [facility] Comment on above: Performed By: #### C BC #### [facility] [address] [place] [address] Dr. Mikaela Caldwell Platelet mean volume (Bld) [Entitic vol] 9.2 fL Critically low 9.5-13.5 [facility] Comment on above: Performed By: #### C BC #### [facility] [address] [place] [address] Dr. Mikaela Caldwell PLT 420 103/ul Normal 150-450 [facility] Comment on above: Performed By: #### C BC #### [facility] [address], [place] [address] Dr. Mikaela Caldwell RBC 4.49 106/ul Normal 4.20-5.40 [facility] Comment on above: Performed By: #### C BC #### [facility] [address], [place] [address] Dr. Mikaela Caldwell WBC 14.0 103/ul Critically high 4.0-11.0 [facility] Comment on above: Performed By: #### C BC #### [facility] [address], [place] [address] ABD/PELVIS WO CONon [...] GEORGE LLANES Date: 2021-11-13 02:57 Normal [facility] SARS-CoV-2 (COVID-19) RNA ISABELLA+probe Ql (Unsp spec) Not detected Normal NOT DETECTED [facility] Comment on above: Result Comment: [...] for this test is supported by the [place] of Health and Human Service's declaration that [...] By: #### C VDTB #### [facility] [address] [place] [address] Dr. Mikaela Caldwell ER URINE PROFILEon 2 Bilirubin Ql (U) Negative Normal NEGATIVE [facility] Comment on above: Performed By: #### AUBREE ROGERS #### [facility] [address] [place] [address] Dr. Mikaela Caldwell Clarity (U) CLEAR Normal CLEAR [facility] [facility] Comment on above: Performed By: #### KENDELL ROGERSRO #### [facility] [address] [place] [address] Dr. Mikaela Caldwell Color (U) LT. YELLOW Normal YELLOW [facility] Comment on above: Performed By: #### AUBREE ROGERS #### [facility] [address] [place] [address] Dr. Mikaela Caldwell ERUAHD A micrscopic examination will be performed if indicated. Normal [facility] Comment on above: Performed By: #### KENDELL ROGERSRO #### [facility] [address] [place] [address] Dr. Mikaela Caldwell Glucose Ql (U) Negative Normal NEGATIVE [facility] Comment on above: Performed By: #### Jimy ROSAS UMICRO #### [facility] [address] [address] [address] Mikaela Caldwell Hemoglobin Ql (U) TRACE-INTACT Abnormal NEGATIVE [facility] Comment on above: Performed By: #### E RALPH, UMICRO #### [facility] [address] [address] [address] Mikaela Caldwell Ketones Ql (U) Negative Normal NEGATIVE [facility] Comment on above: Performed By: #### Jimy ROSAS UMICRO #### [facility] [address] [place] [address] Dr. Mikaela Caldwell LEUKOCYTES TRACE Abnormal NEGATIVE [facility] Comment on above: Performed By: #### Jimy ROSAS UMICRO #### [facility] [address] [place] [address] Dr. Mikaela Caldwell Nitrite Ql (U) Positive Abnormal NEGATIVE [facility] Comment on above: Performed By: #### Jimy ROSAS UMICRO #### [facility] [address] [place] [address] Dr. Mikaela Caldwell pH (U) 6.5 [pH] Normal 5-9 [facility] Comment on above: Performed By: #### Jimy ROSAS UMICRO #### [facility] [address] [place] [address] Dr. Mikaela Caldwell SPEC GRAVITY 1.020 Normal 1.005-<=1.025 [facility] Comment on above: Performed By: #### Jimy ROSAS UMICRO #### [facility] [address] [place] [address] Dr. Mikaela Caldwell UA PROTEIN Negative Normal NEGATIVE/ TRACE [facility] Comment on above: Performed By: #### Jimy ROSAS UMICRO #### [facility] [address] [place] [address] Dr. Mikaela Caldwell UR MICRO IND INDICATED Normal [facility] Comment on above: Performed By: #### Jimy ROSAS UMICRO #### [facility] [address] [address] [address] Mikaela Caldwell Urobilinogen Qn (U) 0.2 {Lisa'U}/dL Normal 0.2 - 1. [address] [facility] Comment on above: Performed By: #### E AUBREE ROSAS #### [facility] [address] [address] [address] Mikaela Caldwell LACTATE/LACTIC ACIDon 2021 Lactate [Moles/Vol] 1.2 mmol/L Normal 0.4-1.9 [facility] Comment on above: Performed By: #### L ACT ####[facility] [id number] [address]Dr. Mikaela Caldwell LIPASEon 11-13-2021 Lipase [Catalytic activity/Vol] 97.0 U/L Normal 73.0-393.0 [facility] Comment on above: Performed By: #### C ANIL LIPA, CMP #### [facility] [address] [address] [address] Mikaela Caldwell PROF 14(COMP METB)on 022 Albumin [Mass/Vol] 3.5 g/dL Normal 3.4-5.0 [facility] Comment on above: Performed By: #### C CANDELARIAM LIPA, CMP #### [facility] [address] [address] [address] Mikaela Caldwell Albumin/Globulin [Mass ratio] 0.9 {ratio} Normal [facility] Comment on above: Performed By: #### C MADM, LIPA, CMP #### [facility] [address] [place] [address] Dr. Mikaela Caldwell ALP [Catalytic activity/Vol] 161 U/L Critically high 46-[address] [facility] Comment on above: Performed By: #### C MADM, LIPA, CMP #### [facility] [address] [address] [address] Mikaela Caldwell ALT [Catalytic activity/Vol] 30 U/L Normal 14-[address] [facility] Comment on above: Performed By: #### C MADM, LIPA, CMP #### [facility] [address] [address] [address] Mikaela Caldwell Anion gap [Moles/Vol] 10.4 mmol/L Normal [facility] Comment on above: Performed By: #### C MADM, LIPA, CMP #### [facility] [address] [address] [address] Mikaela Caldwell AST [Catalytic activity/Vol] 17 U/L Normal 15-37 [facility] Comment on above: Performed By: #### C MADM, LIPA, CMP #### [facility] [address] [address] [address] Mikaela Caldwell Bilirubin [Mass/Vol] 0.3 mg/dL Normal 0.2-1.0 [facility] Comment on above: Performed By: #### C MADM, LIPA, CMP #### [facility] [address] [address] [address] Mikaela Caldwell Calcium [Mass/Vol] 8.8 mg/dL Normal 8.5-10.1 [facility] Comment on above: Performed By: #### C MADM, LIPA, CMP #### [facility] [address] [address] [address] Mikaela Caldwell Chloride [Moles/Vol] 106 mmol/L Normal 98-107 [facility] Comment on above: Performed By: #### C MADM, LIPA, CMP #### [facility] [address] [address] [address] Mikaela Caldwell CO2 [Moles/Vol] 30.1 mmol/L Normal 21.0-32.0 [facility] Comment on above: Performed By: #### C MADM, LIPA, CMP #### [facility] [address] [address] [address] Mikaela Caldwell Creatinine [Mass/Vol] 1.02 mg/dL Normal 0.55-1.02 [facility] Comment on above: Performed By: #### C MADM, LIPA, CMP #### [facility] [address] [address] [address] Mikaela Caldwell EGFR-AF [place] ISLANDER >60 Normal >=60 [facility] Comment on above: Performed By: #### C MADM, LIPA, CMP #### [facility] [address] [address] [address] Mikaela Caldwell EGFR-NON AF [place]LANDER 57 mL/min/1.73m2 Critically low >=60 [facility] Comment on above: Performed By: #### C MADM, LIPA, CMP #### [facility] [address] [place] [address] Dr. Mikaela Caldwell Globulin (S) [Mass/Vol] 4.0 g/dL Normal [facility] Comment on above: Performed By: #### C MADMarii LIPA, CMP #### [facility] [address] [place] [address] Dr. Mikaela Caldwell Glucose [Mass/Vol] 113 mg/dL Critically high 74-106 [facility] Comment on above: Performed By: #### C ANIL LIPA, CMP #### [facility] [address] [place] [address] Dr. Mikaela Caldwell Potassium [Moles/Vol] 3.5 mmol/L Normal 3.5-5.1 [facility] Comment on above: Performed By: #### C ANIL LIPA, CMP #### [facility] [address] [place] [address] Dr. Mikaela Caldwell Protein [Mass/Vol] 7.5 g/dL Normal 6.4-8.2 [facility] Comment on above: Performed By: #### C MADMarii LIPA, CMP #### [facility] [address] [place] [address] Dr. Mikaela Caldwell Sodium [Moles/Vol] 143 mmol/L Normal 136-145 [facility] Comment on above: Performed By: #### C MADM LIPA, CMP #### [facility] [address] [place] [address] Dr. Mikaela Caldwell Urea nitrogen [Mass/Vol] 18.0 mg/dL Normal 7.0-18.0 [facility] Comment on above: Performed By: #### C MADM LIPA, CMP #### [facility] [address] [place] [address] Dr. Mikaela Caldwell Urea nitrogen/Creatinine [Mass ratio] 17.6 mg/mg Normal [facility] Comment on above: Performed By: #### C RONEN MA, CMP #### [facility] [address] [place] [address] Dr. Mikaela Caldwell URINE MICROSCOPIC ONLYon BACTERIA TRACE Abnormal NONE SEEN [facility] Comment on above: Performed By: #### Jimy ROSAS, UMICRO #### [facility] [address] [place] [address] Dr. Mikaela Caldwell Bacteria identified Cx Nom (U) INDICATED Normal [facility] Comment on above: Performed By: #### Jimy ROSAS UMICRO #### [facility] [address] [place] [address] Dr. Mikaela Caldwell CAST NONE SEEN Normal NONE SEEN [facility] Comment on above: Performed By: #### Jimy ROSAS UMICRO #### [facility] [address] [place] [address] Dr. Mikaela Caldwell Crystals LM Nom (Urine sed) NONE SEEN Normal NONE SEEN [facility] Comment on above: Performed By: #### Jimy ROSAS UMICRO #### [facility] [address] [place] [address] Dr. Mikaela Caldwell Epithelial cells LM Ql (Urine sed) NONE SEEN Normal NONE SEEN /RARE [facility] Comment on above: Performed By: #### Jimy ROSAS UMICRO #### [facility] [address] [place] [address] Dr. Mikaela Caldwell MUCOUS NONE SEEN Normal NONE SEEN [facility] Comment on above: Performed By: #### Jimy ROSAS UMICRO #### [facility] [address] [place] [address] Dr. Mikaela Caldwell RBC 0-2 Normal 0-[address] [facility] Comment on above: Performed By: #### Jimy ROSAS UMICRO #### [facility] [address] [place] [address] Dr. Mikaela Caldwell WBC 5-10 Abnormal NONE SEEN [facility] Comment on above: Performed By: #### E AUBREE ROSAS #### [facility] [address] [address] [address] Mikaela Caldwell XR CHEST 2 Von [...] Date: 2021-11-13 02:46 [address] [facility] Vital Signs Date Time Vital Sign Value Performing Clinician Facility 12-19-2022 09:45-0400 Body height 165.1 cm Shubham Chase Other [employer] [facility] [employer] [place] Other 12-19-2022 09:45-0400 Body mass index (BMI) [Ratio] 39.27 kg/m2 Shubham Chase Other [facility] Other 12-19-2022 09:45-0400 Body weight 107.05 kg Shubham Rodrigues Other [employer] [facility] [place] Other 07-22-2022 09:50-0400 Blood Pressure Location Jordi MAST [employer] [facility] 07-22-2022 09:50-0400 Diastolic blood pressure 81 mm[Hg] Jordi MAST [facility] 07-22-2022 09:50-0400 Heart rate 72 /min Jordi MAST [facility] 07-22-2022 09:50-0400 Respiratory rate 16 /min Jordi MAST [facility] 07-22-2022 09:50-0400 Systolic blood pressure 129 mm[Hg] Jordi MAST [facility] 12-21-2021 17:00-0400 Diastolic blood pressure 82 mm[Hg] MD Jordi Mast Work Phone: [facility] 12-21-2021 17:00-0400 Heart rate 79 /min MD Jordi Mast Work Phone: [facility] 12-21-2021 17:00-0400 Respiratory rate 16 /min MD Jordi Mast Work Phone: [facility] 12-21-2021 17:00-0400 SaO2% (BldA) [Mass fraction] 100 % MD Jordi Mast Work Phone: [facility] 12-21-2021 17:00-0400 Systolic blood pressure 118 mm[Hg] MD Jordi Mast Work Phone: [facility] 12-21-2021 15:35-0400 Body weight 118 mg MD Jordi Mast Work Phone: [facility] 12-21-2021 14:57-0400 Body height 165.1 cm MD Jordi Mast Work Phone: [facility] 12-21-2021 14:57-0400 Body mass index (BMI) [Ratio] 38.5 kg/m2 MD Jordi Mast Work Phone: [facility] 12-21-2021 14:57-0400 Body weight 105 kg MD Jordi Mast Work Phone: [facility] 12-21-2021 12:56-0400 Body temperature 98.4 [degF] MD Jordi Mast Work Phone: [facility] 11-29-2021 14:51-0400 Diastolic blood pressure 84 mm[Hg] MD Jordi Mast Work Phone: [facility] 11-29-2021 14:51-0400 Heart rate 80 /min MD Jordi Mast Work Phone: [facility] 11-29-2021 14:51-0400 Respiratory rate 16 /min MD Jordi Mast Work Phone: [facility] 11-29-2021 14:51-0400 SaO2% (BldA) [Mass fraction] 98 % MD Jordi Mast Work Phone: [facility] 11-29-2021 14:51-0400 Systolic blood pressure 117 mm[Hg] MD Jordi Mast Work Phone: [facility] 11-29-2021 12:45-0400 Body height 165.1 cm MD Jordi Mast Work Phone: [facility] 11-29-2021 12:45-0400 Body mass index (BMI) [Ratio] 37.4 kg/m2 MD Jordi Mast Work Phone: [facility] 11-29-2021 12:45-0400 Body weight 102.05 kg MD Jordi Mast Work Phone: [facility] 11-29-2021 12:24-0400 Body temperature 97.9 [degF] MD Jordi Mast Work Phone: [facility] Encounters Encounter Date Encounter Type Care Provider Facility Start: 02-02-2024 ambulatory Jordi MAST Facility :[facility] Start: 05-12-2023 End: 05-13-2023 ambulatory [facility] Start: 05-12-2023 Encounter for gynecological examination (general) (routine) without abnormal findings [facility] Start: 02-10-2023 End: 02-10-2023 ambulatory Shubham Rodrigues Other [facility] Other Start: 02-10-2023 Postop follow up vis it related to original px Shubham Rodrigues [facility] Start: 02-10-2023 Telephone encounter Shubham Olexa [facility] Start: 01-27-2023 End: 01-28-2023 ambulatory Jordi MAST Facility:[facility] Start: 01-07-2023 End: 01-07-2023 ambulatory Shubham Olexa Other [facility] Other Start: 01-07-2023 Postop follow up vis it related to original px Shubham Olexa [facility] Start: 01-01-2023 End: 01-01-2023 ambulatory Sue Win Facility:[facility] Start: 12-31-2022 End: 12-31-2022 ambulatory Shubham Olexa Other [facility] Other Start: 12-31-2022 Telephone encounter Shubham Bullockxa [facility] Start: 12-25-2022 End: 12-25-2022 ambulatory Sue Win Facility:[facility] Start: 12-25-2022 End: 12-25-2022 ambulatory MD Sue Win Work Phone: [facility] Work Phone: Start: 12-25-2022 End: 12-25-2022 Patient encounter procedure MD Sue Win Work Phone: [facility] Ihh-Idu-Gqmbxzrq Testing Work Phone: Start: 12-19-2022 End: 12-19-2022 ambulatory Shubham Olexa Other [facility] Other Start: 12-19-2022 Office outpatient vi sit 25 minutes Shubham Olexa [facility] Start: 11-25-2022 End: 11-25-2022 ambulatory Shubham Olexa Other [facility] Other Start: 11-25-2022 Office outpatient ne w 45 minutes Shubham Olexa [facility] Start: 08-12-2022 End: 08-13-[address] JORDI MAST Facility: Start: 07-22-2022 End: 07-23-2022 ambulatory Jordi MAST Facility:[facility] Start: 07-22-2022 End: 07-22-2022 Patient encounter procedure Jordi MAST [facility] Start: 07-18-2022 End: 07-19-[address] JORDI MAST Facility:[facility] Start: 05-15-2022 End: 05-16-[address] HARVEY BURCH Facility:[facility] Start: 03-27-2022 End: 03-28-[address] SUE WIN . Facility:[facility] Start: 12-21-2021 End: 12-21-2021 Admission to same day surgery center MD [facility]ordi Mast [facility] [place] Start: 12-19-2021 End: 12-19-2021 Patient encounter procedure MD Jordi Mast Work Phone: [facility] Yxd-Kgg-Zcaokzuy Testing Start: 12-13-2021 End: 12-13-2021 Patient encounter procedure MD Jordi Mast Work Phone: [facility] Tar-Vyz-Gndltenr Testing Start: 12-12-2021 End: 12-13-[address] SUE WIN . Facility:[facility] Start: 12-10-2021 End: 12-11-[address] JORDI MAST Facility:[facility] Start: 11-29-2021 End: 11-29-2021 Admission to same day surgery center MD Jordi Mast Work Phone: [facility] [place] Start: 11-27-2021 End: 11-27-2021 Patient encounter procedure MD Jordi Mats Work Phone: [facility] Chd-Gio-Lnilojef Testing Start: 11-21-2021 End: 11-21-2021 Patient encounter procedure Jordi MAST [facility] Start: 11-20-2021 End: 11-21-[address] JORDI MAST Facility:[facility] Start: 11-13-2021 End: 11-13-[address] SUE WIN . Facility:[facility] Start: 10-03-2021 End: 10-04-[address] SUE WIN . Facility:[facility] Start: 03-05-2021 End: 03-05-2021 Patient encounter procedure Sue Win MD Work Phone: [facility] Start: 03-05-2021 End: 03-05-2021 Subsequent hospital visit by physician Sue Win MD Work Phone: [facility] Laboratory Comment on above: Vaginal discharge; Women's annual routine gynecological examination Start: 02-25-2019 End: 02-25-2019 [facility] Comment on above: Women's annual [...] Dilation and curetta ge of uterus Jordi MAST SARS Antigen (LFIA) MD Alejandro wells Mannie Work Phone: Plan of Treatment Date Care Activity Detail Author Start: 03-20-2022 Screening for malign ant neoplasm of breast Breast cancer screen [facility] Start: 03-13-2022 End: 03-13-2022 Patient encounter procedure 03/13/2022 Office Visit Obstetrics and Gynecology Rosaura Yang MD [address] [place] [address] [id number] [facility] Start: 02-25-2022 Screening for malign ant neoplasm of cervix [facility] Start: 12-21-2021 End: 12-21-2021 [facility] Work Phone: Start: 12-21-2021 Cystoscopy OR Cysto/Retro/Stent/Stone /Holmium Laser (Left) [facility] Start: 12-21-2021 Diagnostic radiograp hy of abdomen XR [facility] Start: 12-21-2021 End: 12-21-2021 Admission to same day surgery center Departed Surgical Day Care [facility] [place] Start: 12-21-2021 Diagnostic radiograp hy of abdomen XR [facility] Start: 12-19-2021 End: 12-19-2021 Patient encounter procedure Departed Clinical [facility] Xlh-Tmi-Pwcgjidq Testing Start: 12-13-2021 End: 12-13-2021 Patient encounter procedure Departed Clinical [facility] Zea-Ubx-Mgrjaywu Testing Start: 11-29-2021 [facility] Work Phone: Start: 11-29-2021 [facility] Work Phone: Start: 02-23-2021 Cervical cancer screen Cervical canc er screen [facility] [place], [place] Start: 02-11-2021 COVID-19 Vaccine (3 - Pfizer booster) COVID-19 Vaccine (3 - Pfizer booster) [facility] Start: 02-28-2020 Breast cancer screen Breast cancer s creen [place], [place] Start: 03-27-2019 Influenza vaccination Flu vaccine (# 1) [place], [place] Comment on above: Postponed from 12/27 (Not Indicated) Start: 03-25-2019 Diabetes screen Diabetes screen [place], [place] Comment on above: Postponed from 07/08 (Not Indicated) Start: 03-25-2019 DTaP/Tdap/Td vaccine (1 - Tdap) DTaP/Tdap/Td vaccine (1 - Tdap) [place] Comment on above: Postponed from 07/08 (Patient Refused) Start: 03-25-2019 HIV screen HIV screen [place], [place] Comment on above: Postponed from 07/08 (Patient Refused) Start: 03-25-2019 Lipid screen Lipid screen [place], [place] Comment on above: Postponed from 07/08 (Not Indicated) Start: 2018 Colon cancer screen colonoscopy Colon cancer screen colonoscopy [place], [place] Start: 2018 Shingles Vaccine (1 of 2) Shingles Vaccine (1 of 2) [facility] Start: 2013 Screening for malign ant neoplasm of colon Colon cancer screen colonoscopy [facility] Start: 2008 Diabetes screen Diabetes screen [facility] Start: 2008 Lipid panel Lipid screen [facility] Start: 1998 Screening for malign ant neoplasm of cervix HPV (without or with Pap) [facility] Start: 07-09-1987 DTaP/Tdap/Td vaccine (1 - Tdap) DTaP/Tdap/Td vaccine (1 - Tdap) [facility] Start: 07-09-1983 HIV screening HIV screen [facility] Start: 1968 Hepatitis C screening Hepatitis C sc reen [facility] End: 03-05-2021 Culture, Genital [facility] Work Phone: Comment on above: 1 Occurrences starti ng 03/05/2021 until 03/05/2021 End: 02-25-2019 Cytopathology procedure, preparation of smear, genital source PAP SMEAR Lab Routine Women's Annual Routine Gynecological Examination 1 Occurrences starting 02/25/2019 until 02/25/2019 [facility] [place], [place] Comment on above: 1 Occurrences starti ng 02/25/2019 until 02/25/2019 End: 03-05-2021 Cytopathology procedure, preparation of smear, genital source PAP SMEAR Lab Routine Women's annual routine gynecological examination 1 Occurrences starting 03/05/2021 until 03/05/2021 [facility] Work Phone: Comment on above: 1 Occurrences starti ng 03/05/2021 until 03/05/2021 Patient Education Cystoscopy (DC) [facility] Work Phone: Patient referral [facility] Work Phone: Immunizations Immunization Date Immunization Notes Care Provider Fa cility 09-29-2021 COVID-19 mRNA-1273 (Moderna) MD Jordi Mast Work Phone: [facility] 02-08-2021 Influenza, injectabl e, Madin Mary Canine Kidney, preservative free, quadrivalent Sue Win MD Work Phone: [facility] Work Phone: 08-12-2020 COVID-19 mRNA-1273 (Moderna) MD Jordi Mast Work Phone: [facility] 08-12-2020 COVID-19, Pfizer, PF , 30mcg/0.3mL Sue Win MD Work Phone: [facility] 07-17-2020 SARS-CoV-2 (COVID-19 ) mRNA-1273 vaccine Jordi MAST [facility] 07-15-2020 COVID-19 mRNA-1273 (Moderna) MD Jordi Mast Work Phone: [facility] 07-15-2020 COVID-19, Pfizer, PF , 30mcg/0.3mL Sue Win MD Work Phone: [facility] Work Phone: 05-03-2020 Influenza, injectabl e, Madin Mary Canine Kidney, preservative free, quadrivalent Sue Win MD Work Phone: [employer] Work Phone: 02-08-2020 pneumococcal conjuga te vaccine, 13 valent Sue Win MD Work Phone: [employer] Work Phone: Payers Date Payer Category Payer Self-pay 2019 Unknown [employer] [address] xxxxxxxx 2019-Present [phone] [address] [place] [address] xxxxxxxx [id number] 1968 Unknown [id number] 1968 Unknown [id number] 1968 Unknown [id number] 1968 Unknown [id number] 1968 Unknown [id number] 1968 Unknown [id number] [id number] 1970 Unknown [id number] 2.16.840.1.312967.3.579.2.593 1970 Unknown [id number] 2.16.840.1.940215.3.579.2.593 1968 Unknown [id number] 2.16.840.1.415370.3.579.2.593 1968 Unknown [id number] 2.16.840.1.671041.3.579.2.727 1968 Unknown [id number] 2.16.840.1.570140.3.579.2.727 1968 Unknown [id number] 2.16.840.1.939521.3.579.2.727 1968 Unknown [id number] 2.16.840.1.397694.3.579.2.173 1959 Unknown [id number] 1.2.840.572364.1.13.239.2.7.3 .[id number] Unknown [id number] 2.16.840.1.372456.3.579.2.531 Unknown [id number] 2.16.840.1.254861.3.579.2.531 Social History Date Type Detail Facility Start: 02-25-2019 End: 12-25-2022 Tobacco smoking status NHIS Never smoker [place], [place] Start: 02-25-2019 [facility] [place] [place] Start: 1970 Sex Assigned At Not on file [place], [place] Start: 07-30-2012 Tobacco use and exposure Smokeless tobacco [facility] Phone: Start: 03-05-2021 Alcohol intake Current drinke r of alcohol (finding) [employer] Phone: Tobacco smoking status Never [facility] Start: 1970 Sex Assigned At Female F [facility] Goals Date Patient Goal Desired Activity /State Functional Status Date Assessment Result Facility 07-22-2022 Functional Status N/A [facility] 11-21-2021 Functional Status N/A [facility] Clinical Notes 10-03-2021 to 02-10-2023 Note Date [...] Other specified postprocedural states (ICD-10 - Z98.890) [facility] Other 09-12-2023 Evaluation note* Encounter Date Diagnosis [...] Other specified postprocedural states (ICD-10 - Z98.890) [facility] Other 09-05-2023 Evaluation note* Encounter Date Diagnosis Assessment Notes Treatment Notes Treatment Clinical Notes Dec, Other specified postprocedural states (ICD-10 - Z98.890) [facility] Other 08-24-2023 Evaluation note* Encounter Date Diagnosis [...] right knee, subsequent encounter (ICD-10 - S83.241D) [facility] Other 07-31-2023 Evaluation note* Encounter Date Diagnosis [...] Pain in left knee (ICD-10 - M25.562) [facility] Other 03-27-2023 Hospital Discharge instructions Patient Education 07/22/2022 10:14:42 Kidney Stones, Drap-tq-Bwsf Kidney Stones Kidney stones are rock-like masses [...] Follow these instructions at home: Medicines Take xoaw-bge-nmmpeeu and prescription medicines only as told by [...] Document Reviewed: 08/31/2019 Elsevier Patient Education 2019 Getable. Follow Up Care 12/26/2021 13:33:59 With:MANNIE ARREGUIN, Jordi Mckeon, URL Address: [facility] [place] [id number]- When:01/22/2023 Comments:ANNAMARIE [facility] [place] [id number] Hospital Discharge instructions Patient Education 11/21/2021 12:49:44 Kidney Stones, Pvdn-ty-Ngya Kidney Stones Kidney stones are rock-like masses [...] Follow these instructions at home: Medicines Take gzvi-weo-pqkbfgy and prescription medicines only as told by [...] 09/30/2008 Document Revised: 08/31/2019 Document Reviewed: 08/31/2019 Heartscape Patient Education 2020 Getable. Follow Up Care 11/14/2021 08:29:10 With:MANNIE ARREGUIN, Jordi Mckeon, URL Address: [address] [place] [address] When: Unknown [facility] [...] stent placement under fluoroscopic guidance. SURGEON: Levi Cook, M.D. COMPLICATIONS: None. ANESTHESIA: Dr. Castellanos with [...] placed per urethra. A well lubricated, 22 Martiniquais cystourethroscope was passed into the bladder. Moderately tight at the bladder neck. Once into the bladder, teran endoscopy reveals no tumors or stones or diverticula. She does have a moderate cystocele present. Left retrograde pyelogram was then performed utilizing a 6 Martiniquais open ended ureteral catheter. The distal ureter [...] and then over the wire a 4.8 Martiniquais, 22-30 cm Microvasive double J stent was [...] procedure well. She was transferred to the [facility] and then back to PACU [...] by: DR JORDI MAST 11/29/2021 08:56:00[facility]06-08-2022 NotePROCEDURE: XR KNEE RT 4V or > COMPARISON: None. HISTORY: Pain in right knee FINDINGS: BONES:No acute fracture or dislocation. Mild osteoarthritis with marginal osteophyte formation SOFT TISSUES:Negative. No visible soft tissue swelling. EFFUSION:None visible. OTHER: Negative. IMPRESSION: Mild osteoarthritis Electronically authenticated by: KODY GARRISON Date: 2021-10-03 07:59[facility] No data available for this section [facility] Evaluation + Plan note Future Appointments Appointment Date:01/27/2023 08:00:00 AM Scheduled Provider:Jordi MAST MD Location:[facility] Appointment Type:URO Office Visit [facility] Evaluation note* Diagnosis Vaginal discharge Leukorrhea, not specified as infective Women's annual routine gynecological examination documented in this encounter [facility] Work Phone: evaluation noteNo assessment information available [facility] Work Phone: Evaluation noteNo InformationNort DutyCalculator Other History general Narrative - Reported* Type Description Date Medical History GERD Medical History Hypothyroidism [facility] Other History general Narrative - Reported* Type Description Date Medical History GERD Medical History Hypothyroidism Surgical History 1. LEFT knee arthros copy with partial medial meniscectomy 2. Chondral debridement medial femoral condyle, medial tibial plateau, medial patellar facet [facility] Other Progress note No data available for this section [facility] [employer] Ass[employer]ments Diagnosis Women's annual routine gynecological examination Advance Directives No Advanced Directives Records FoundDocuments on File Type Date Recorded Patient Sales Consultant Residential Manager Expl anation Advance Directives and Living Will Power of Flag Signaler Documents on File Type Date Recorded Patient Sales Consultant Residential Manager Expl anation ACP-Advance Directive ACP-Power of Flag Signaler Advance Directive Response Recorded Date/ Time Advance [...] Care Teams (unrecognized sec tion and content) Offal Trimmer Relationship Specialty Start Date End Date Sue Win MD [address] [place] [address] PCP - General Family Medicine 01/16/16 Team [...] section and content) DATE CREATED AUTHOR 08/18/2022 [facility] DATE CREATED AUTHOR AUTHOR'S ORGANIZ ATION 01/31/2023 [facility] DATE CREATED AUTHOR AUTHOR'S ORGANIZ ATION 02/07/2023 [facility] DATE CREATED AUTHOR AUTHOR'S ORGANIZ ATION [...] BE BASED ON THE PRIMARY CLINICAL RECORDS. [email or web address] [facility]. provides no warranty or guarantee of the accuracy or completeness of information in this document.
== END 2023-10-16 12:40 | disposition home or self-care (01) ==
LOC: MAMMO 12:39
PROVIDERS: PCP Family Medicine; Visit Provider Family Medicine
DX: N63.0 Unspecified lump in unspecified breast (principal); Z80.42 Family history of malignant neoplasm of prostate; Z80.8 Family history of malignant neoplasm of other organs or systems; R92.0 Mammographic microcalcification found on diagnostic imaging of breast
CPT/HCPCS: 76642; 77065; G0279

== ENCOUNTER 2023-12-02 07:58 | Outpatient (OUT) | payer OTHER, SELFPAY ==
--- OUTSIDE RECORDS SUMMARY | 2023-12-02 08:02 | XMS_ITS | CCD ---
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 Arc Name Role Phone Sue Win Primary Care Provider [phone] Sue Win Primary Care Physician [phone] MD Jordi Mast Attending Provider MD Sue Win Primary Care Provider [phone] YAIMA ., DR ROGERS Consulting Unavailable HOY [...] Attending Unavailable TIMMIS, DR GABRIEL Admitting Unavailable RAINSVILLE, DR KODY Pappas Consulting Unavailable HOY ., [...] Unavailable YAIMA ., DR ROGERS Admitting Unavailable RAINSVILLE, DR KODY Pappas Consulting Unavailable MANNIE, DR [...] Mckeon Attending Unavailable Jordi MAST Attending Unavailable Seu Win Primary Care Unavailable Chase, Shubham Admitting Unavailable Chase, Shubham Attending Unavailable Sue Win Primary Care Unavailable Olekarri, Shubham Admitting Unavailable Olekarri, Shubham Attending Unavailable USE WIN Primary Care Unavailable ROSAURA YANG Referring Unavailable Allergies Allergy Classification Reported Allergen(s) Allergy Type Date of Onset Reaction(s) Facility (1 source) No Known Medication Allergies; Translations: [No Known Medication Allergies] Propensity to adverse reactions (disorder) [facility] Repository Medications Current Medications Medication Drug Class(es) Dates Sig (Normalized) Sig (Original) acetaminophen 325 mg / HYDROcodone bitartrate 5 mg oral tablet (10 sources) Opioid Agonist Start: 12-31-2022 take 1 tablet by mouth every four hours as needed for pain HYDROcodone-Aceta minophen 5-325 MG 1 tablet as needed for pain Orally up to every 4 hrs for 5 days PB: [id number] Dec, Active Start: 11-29-2021 End: 12-13-2021 take [...] 11-16-2021 Episodic Other aftercare (1 source) Other manager terminal (current) drug therapy; Translations: [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 -Endocervical/trans formation zone component is absent. Descriptive Diagnosis: Negative for intraepithelial lesion or malignancy. Cytotech Screener: EY Electronically Signed Out Margot Rand CT(ASCP) ey/05/28/2023 Source of Specimen: A: Imaged ThinPrep Pap - Cervical (1 monolayer slide) HPV Reflex?............ ..........HPV if Abnormal Clinical History Postmenopausal Z01.419 Routine ob gyn physician assistant exam without abnormal findings LMP: 01/23/2016 Processing Lab: [address] [id number] Interpretation performed at [address] [id number] This Pap Test has been evaluated with the assistance of the VarVeePrep Pap Test Imaging System. The Pap smear is a screening test primarily for squamous epithelial lesions, which is subject to both false negative and false positive results. Your patient should be reminded to consult you immediately if she experiences any suspicious signs or symptoms, regardless of her Pap smear result. GYNECOLOGIC CYTOLOGY REPORT Patient Name: KAROL PLASCENCIA VincentBijan [facility] Rec: [id number] [facility] ANATOMIC PATHOLOGY [address] [place] [address]. [address] [facility] Ambulatory Visit Summaryon 1 Ambulatory Visit Summary KAROL PLASCENCIA :1970 Visit Date:01/27/2023 Ambulatory Visit Instructions Your Diagnosis Kidney stone Tests Performed Urnls Dip Stick Auto w/o Microscopy POC 61381 XR Abdomen 1 View -- Results Pending [...] ARREGUIN, Jordi Mckeon Where: [facility] Patient Educationon 01-28-20 Patient Education [...] Togolese chard. ? Peanuts. ? Potato chips, sao tomean fries, and baked potatoes with skin on. ? Nuts and nut products. ? Chocolate. ? If you regularly take a diuretic medicine, make sure to eat at least 1 or 2 servings of fruits or vegetables that are high in potassium each day. These include: ? Avocado. ? Banana. ? Otis, prune, carrot, or tomato juice. ? Baked [...] fish oil, or vitamin B6. ? Take cgsu-kvh-ooiifbo and prescription medicines only as told by [...] Litholink done 08/12/22. KUB done 01/23/23 at [facility]. Dysuria: denies Incomplete bladder emptying: denies [...] In [address] [place] [address]- Additional Instructions: w/KUB Patient Education Dietary Guidelines to Help Prevent Kidney Stones IRadha, personally scribed for Dr. Mast on 01/27/2023 08:33:07. . Documentation recorded by the scribe, Radha Townsend, accurately reflects the services(s) I performed and decisions made by me. Authenticated by Dr. Mast on 01/27/2023 08:49:28. Portions of this record may have been created with voice recognition artificial intelligence software, specifically [employer] and or [employer]. Substitutions may have occurred due to the [...] mg T (more content not included)... Normal [facility] Comment on above: Result Comment: Elec tronically Signed By: Jordi MAST MD\.br\Date and Time Signed: 01/27/23 08:50 EDT\.br\Electronically Co-Signed By: Radha Townsend\.br\Date and Time Co-Signed: 01/27/23 08:33 EDT RAD - MISCon 01-24-2023 RAD - MISC [id number] 2C#1.00CD:127 Normal [facility] Alanine aminotransferase [En zymatic activity/volume] in Serum or PlasmaOrdered By: Shubham Rodrigues on 12-25-2022 ALT [Catalytic activity/Vol] 27 U/L 7-52 [facility] Albumin [Mass/volume] in Ser um or Plasma by Bromocresol green (BCG) dye binding methoOrdered By: Shubham Rodrigues on 12-25-2022 Albumin BCG dye [Mass/Vol] 3.9 g/dL 3.5-5.7 [facility] Alkaline phosphatase [Enzyma tic activity/volume] in Serum or PlasmaOrdered By: Shubham Rodrigues on 12-25-2022 ALP [Catalytic activity/Vol] 138 U/L 34-104 [facility] Aspartate aminotransferase [ Enzymatic activity/volume] in Serum or PlasmaOrdered By: Shubham Rodrigues on 12-25-2022 AST [Catalytic activity/Vol] 20 U/L 13-39 [facility] Basophils Auto (Bld) [#/Vol] Ordered By: Shubham Rodrigues on 12-25-2022 Basophils (Bld) [#/Vol] 0.1 10*3/uL 0.0-0.2 [facility] Basophils/100 WBC Auto (Bld) Ordered By: Shubham Rodrigues on 12-25-2022 Basophils/100 WBC (Bld) 0.8 % . [facility] Bilirubin.total [Mass/volume ] in Serum or PlasmaOrdered By: Shubham Rodrigues on 12-25-2022 Bilirubin [Mass/Vol] 0.4 mg/dL 0.3-1.0 [facility] CMP with reflex to A1Con Albumin [Mass/Vol] 3.9 g/dL Normal 3.5-5.7 [facility] Comment on above: Performed By: #### C BC, CMP wRFX A1C #### [facility] [address] [place] [address] Albumin/Globulin [Mass ratio] 1.4 {ratio} Normal [facility] Comment on above: Performed By: #### C BC, CMP wRFX A1C #### [facility] [address] [place] [address] ALP [Catalytic activity/Vol] 138 U/L High 34-104 [facility] Comment on above: Result Comment: PERF ORMED BY: [place] [address] PATHOLOGIST IT PROFESSIONAL MULUGETA ANGLIN M.D. Performed By: #### C BC, CMP wRFX A1C #### [facility] [address] ALT [Catalytic activity/Vol] 27 U/L Normal 7-52 [facility] Comment on above: Performed By: #### C BC, CMP wRFX A1C #### [facility] [address] [place] [address] [place] Anion gap [Moles/Vol] 10.0 mmol/L Normal 6.0-15.0 [facility] Comment on above: Performed By: #### C BC, CMP wRFX A1C #### [facility] [address] [place] [address] [place] AST [Catalytic activity/Vol] 20 U/L Normal 13-39 [facility] Comment on above: Performed By: #### C BC, CMP wRFX A1C #### [facility] [address] Bilirubin [Mass/Vol] 0.4 mg/dL Normal 0.3-1.0 [facility] Comment on above: Performed By: #### C BC, CMP wRFX A1C #### [facility] [address] Calcium [Mass/Vol] 9.1 mg/dL Normal 8.6-10.3 [facility] Comment on above: Performed By: #### C BC, CMP wRFX A1C #### [facility] [address] Chloride [Moles/Vol] 104 mmol/L Normal 98-107 [facility] Comment on above: Performed By: #### C BC, CMP wRFX A1C #### [facility] [address] CO2 [Moles/Vol] 30.2 mmol/L Normal 21.0-31.0 [facility] Comment on above: Performed By: #### C BC, CMP wRFX A1C #### [address] Creatinine [Mass/Vol] 0.69 mg/dL Normal 0.60-1.20 [facility] Comment on above: Performed By: #### C BC, CMP wRFX A1C #### [facility] [address] [place] [address] [place] GFR/1.73 sq M.predicted MDRD (S/P/Bld) [Vol rate/Area] mL/min/{1.73_m2} [facility] Comment on above: Performed By: #### C BC, CMP wRFX A1C #### [facility] [address] Globulin (S) [Mass/Vol] 2.8 g/dL Normal [facility] Comment on above: Performed By: #### C BC, CMP wRFX A1C #### [facility] [address] [place] [id number] [place] Glucose [Mass/Vol] 99 mg/dL Normal 70-100 [facility] Comment on above: Performed By: #### C BC, CMP wRFX A1C #### [facility] [address] [place] [address] [place] Potassium [Moles/Vol] 4.2 mmol/L Normal 3.5-5.1 [facility] Comment on above: Performed By: #### C BC, CMP wRFX A1C #### [facility] [address] [place] [address] [place] Protein [Mass/Vol] 6.7 g/dL Normal 6.4-8.9 [facility] Comment on above: Performed By: #### C BC, CMP wRFX A1C #### [facility] [address] [place] [address] [place] Sodium [Moles/Vol] 140 mmol/L Normal 136-145 [facility] Comment on above: Performed By: #### C BC, CMP wRFX A1C #### [facility] [address] [place] [address] [place] Urea nitrogen [Mass/Vol] 18 mg/dL Normal 7-25 [facility] Comment on above: Performed By: #### C BC, CMP wRFX A1C #### [facility] [address] [place] [id number] [place] Calcium [Mass/volume] in Ser um or PlasmaOrdered By: Shubham Rodrigues on 12-25-2022 Calcium [Mass/Vol] 9.1 mg/dL 8.6-10.3 [facility] Carbon dioxide, total [Moles /volume] in Serum or PlasmaOrdered By: Shubham Rodrigues on 12-25-2022 CO2 [Moles/Vol] 30.2 mmol/L 21.0-31.0 [facility] Chloride [Moles/volume] in S gerry or PlasmaOrdered By: Shubham Rodrigues on 12-25-2022 Chloride [Moles/Vol] 104 mmol/L 98-107 [facility] Complete Blood Count Auto Di ffon 12-25-2022 Basophils (Bld) [#/Vol] 0.1 10*3/uL Normal 0.0-0.2 [facility] Comment on above: Result Comment: PERF ORMED BY: [place] [address] PATHOLOGIST IT PROFESSIONAL MULUGETA ANGLIN M.D. Performed By: #### C BC, CMP wRFX A1C #### [facility] [address] [place] [address] [place] Basophils/100 WBC (Bld) 0.8 % Normal . [facility] Comment on above: Performed By: #### C BC, CMP wRFX A1C #### [facility] [address] Eosinophils (Bld) [#/Vol] 0.2 10*3/uL Normal 0.0-0.45 [facility] Comment on above: Performed By: #### C BC, CMP wRFX A1C #### [place] [address] [place] Eosinophils/100 WBC (Bld) 3.0 % Normal . [facility] Comment on above: Performed By: #### C BC, CMP wRFX A1C #### [address] Erythrocyte distribution width (RBC) [Ratio] 14.4 % Normal 11.9-15.3 [facility] Comment on above: Performed By: #### C BC, CMP wRFX A1C #### [place] [address] [place] Hematocrit (Bld) [Volume fraction] 39.1 % Normal 34.0-46.4 [facility] Comment on above: Performed By: #### C BC, CMP wRFX A1C #### [facility] [address] [place] [address] Hemoglobin (Bld) [Mass/Vol] 13.0 g/dL Normal 11.8-15.4 [facility] Comment on above: Performed By: #### C BC, CMP wRFX A1C #### [facility] [address] [place] [address] [place] Lymphocytes (Bld) [#/Vol] 1.5 10*3/uL Normal 1.00-4.8 [facility] Comment on above: Performed By: #### C BC, CMP wRFX A1C #### [facility] [address] Lymphocytes/100 WBC (Bld) 22.8 % Normal . [facility] Comment on above: Performed By: #### C BC, CMP wRFX A1C #### [facility] [address] MCH (RBC) [Entitic mass] 28.9 pg Normal 24.7-34.3 [facility] Comment on above: Performed By: #### C BC, CMP wRFX A1C #### [address] MCV (RBC) [Entitic vol] 86.9 fL Normal 80-100 [facility] Comment on above: Performed By: #### C BC, CMP wRFX A1C #### [address] Mean Corpuscular HGB Conc 33.2 g/dL Normal 32.0-35.0 [facility] Comment on above: Performed By: #### C BC, CMP wRFX A1C #### [place] [address] [place] Monocytes (Bld) [#/Vol] 0.3 10*3/uL Normal 0.0-0.8 [facility] Comment on above: Performed By: #### C BC, CMP wRFX A1C #### [place] [address] [place] Monocytes/100 WBC (Bld) 4.8 % Normal . [facility] Comment on above: Performed By: #### C BC, CMP wRFX A1C #### [facility] [address] [place] [address] [place] Neutrophils (Bld) [#/Vol] 4.7 10*3/uL Normal 1.8-7.7 [facility] Comment on above: Performed By: #### C BC, CMP wRFX A1C #### [facility] [address] Neutrophils/100 WBC (Bld) 68.6 % Normal . [facility] Comment on above: Performed By: #### C BC, CMP wRFX A1C #### [facility] [address] NRBC% 0.1 /100{WBC} Normal 0-0.5 [facility] Comment on above: Performed By: #### C BC, CMP wRFX A1C #### [facility] [address] Platelet mean volume (Bld) [Entitic vol] 7.2 fL Normal 6.3-10.7 [facility] Comment on above: Performed By: #### C BC, CMP wRFX A1C #### [facility] [address] Platelets (Bld) [#/Vol] 334 10*3/uL Normal 150-450 [facility] Comment on above: Performed By: #### C BC, CMP wRFX A1C #### [facility] [address] [place] [address] RBC (Bld) [#/Vol] 4.50 10*6/uL Normal 3.60-5.00 [facility] Comment on above: Performed By: #### C BC, CMP wRFX A1C #### [facility] [address] WBC (Bld) [#/Vol] 6.8 10*3/uL Normal 3.8-11.6 [facility] Comment on above: Performed By: #### C BC, CMP wRFX A1C #### [address] Creatinine [Mass/volume] in Serum or PlasmaOrdered By: Shubham Rodrigues on 12-25-2022 Creatinine [Mass/Vol] 0.69 mg/dL 0.60-1.20 [facility] ECG 12 lead ECGon 12-25-2022 ECG 12 lead ECG [facility] [place] [address] Electrocardiograph Report Signed Patient: Karol Plascencia MR#: [id number] 160 : 1970 Acct:[id number] Age/Sex: 52 / F ADM Date: 12/25/22 Loc: Room: Type: [facility] [...] By Tl Bryan DO 12/25 1134 Normal [facility] Eosinophils Auto (Bld) [#/Vo l]Ordered By: Shubham Rodrigues on 12-25-2022 Eosinophils (Bld) [#/Vol] 0.2 10*3/uL 0.0-0.45 [facility] Eosinophils/100 WBC Auto (Bl d)Ordered By: Shubham Rodrigues on 12-25-2022 Eosinophils/100 WBC (Bld) 3.0 % . [facility] Erythrocyte distribution wid th Auto (RBC) [Ratio]Ordered By: Shubham Rodrigues on 12-25-2022 Erythrocyte distribution width (RBC) [Ratio] 14.4 % 11.9-15.3 [facility] Globulin Calc (S) [Mass/Vol] Ordered By: Shubham Rodrigues on 12-25-2022 Globulin (S) [Mass/Vol] 2.8 g/dL [facility] Glucose [Mass/volume] in Ser um or PlasmaOrdered By: Shubham Rodrigues on 12-25-2022 Glucose [Mass/Vol] 99 mg/dL 70-100 [facility] Hematocrit Auto (Bld) [Volum e fraction]Ordered By: Shubham Rodrigues on 12-25-2022 Hematocrit (Bld) [Volume fraction] 39.1 % 34.0-46.4 [facility] Hemoglobin [Mass/volume] in BloodOrdered By: Shubham Rodrigues on 12-25-2022 Hemoglobin (Bld) [Mass/Vol] 13.0 g/dL 11.8-15.4 [facility] Leukocytes [#/volume] correc darren for nucleated erythrocytes in Blood by Automated counOrdered By: Shubham Rodrigues on 12-25-2022 WBC corrected for nucl RBC Auto (Bld) [#/Vol] 6.8 10*3/uL 3.8-11.6 [facility] Lymphocytes Auto (Bld) [#/Vo l]Ordered By: Shubham Rodrigues on 12-25-2022 Lymphocytes (Bld) [#/Vol] 1.5 10*3/uL 1.00-4.8 [facility] Lymphocytes/100 WBC Auto (Bl d)Ordered By: Shubham Rodrigues on 12-25-2022 Lymphocytes/100 WBC (Bld) 22.8 % . [facility] MCH Auto (RBC) [Entitic mass ]Ordered By: Shubham Rodrigues on 12-25-2022 MCH (RBC) [Entitic mass] 28.9 pg 24.7-34.3 [facility] MCHC Auto (RBC) [Mass/Vol]Or dered By: Shubham Rodrigues on 12-25-2022 MCHC (RBC) [Mass/Vol] 33.2 g/dL 32.0-35.0 [facility] MCV Auto (RBC) [Entitic vol] Ordered By: Shubham Rodrigues on 12-25-2022 MCV (RBC) [Entitic vol] 86.9 fL 80-100 [facility] Monocytes Auto (Bld) [#/Vol] Ordered By: Shubham Rodrigues on 12-25-2022 Monocytes (Bld) [#/Vol] 0.3 10*3/uL 0.0-0.8 [facility] Monocytes/100 WBC Auto (Bld) Ordered By: Shubham Rodrigues on 12-25-2022 Monocytes/100 WBC (Bld) 4.8 % . [facility] Neutrophils Auto (Bld) [#/Vo l]Ordered By: Shubham Rodrigues on 12-25-2022 Neutrophils (Bld) [#/Vol] 4.7 10*3/uL 1.8-7.7 [facility] Neutrophils/100 WBC Auto (Bl d)Ordered By: Shubham Rodrigues on 12-25-2022 Neutrophils/100 WBC (Bld) 68.6 % . [facility] No Panel InformationOrdered By: Shubham Rodrigues on 12-25-2022 Estimated GFR (CKD-EPI) > 60.0 mL/Min [facility] Creatinine Clearance (Chem N/A [facility] Nucleated erythrocytes [Pres ence] in Blood by Automated countOrdered By: Shbuham Rodrigues on 12-25-2022 Nucleated RBC Auto Ql (Bld) 0.1 /100{WBC} 0-0.5 [facility] Platelet mean volume Auto (B ld) [Entitic vol]Ordered By: Shubham Rodrigues on 12-25-2022 Platelet mean volume (Bld) [Entitic vol] 7.2 fL 6.3-10.7 [facility] Platelets Auto (Bld) [#/Vol] Ordered By: Shubham Rodrigues on 12-25-2022 Platelets (Bld) [#/Vol] 334 10*3/uL 150-450 [facility] Potassium [Moles/volume] in Serum or PlasmaOrdered By: Shubham Rodrigues on 12-25-2022 Potassium [Moles/Vol] 4.2 mmol/L 3.5-5.1 [facility] Protein [Mass/volume] in Ser um or PlasmaOrdered By: Shubham Rodrigues on 12-25-2022 Protein [Mass/Vol] 6.7 g/dL 6.4-8.9 [facility] RBC Auto (Bld) [#/Vol]Ordere d By: Shubham Rodrigues on 12-25-2022 RBC (Bld) [#/Vol] 4.50 10*6/uL 3.60-5.00 [facility] Serum or plasma albumin/glob ulin mass ratioOrdered By: Shubham Rodrigues on 12-25-2022 Albumin/Globulin [Mass ratio] 1.4 {ratio} [facility] Serum or plasma anion gap de terminationOrdered By: Shubham Rodrigues on 12-25-2022 Anion gap [Moles/Vol] 10.0 mmol/L 6.0-15.0 [facility] Sodium [Moles/volume] in Ser um or PlasmaOrdered By: Shubham Rodrigues on 12-25-2022 Sodium [Moles/Vol] 140 mmol/L 136-145 [facility] Urea nitrogen [Mass/volume] in Serum or PlasmaOrdered By: Shubham Rodrigues on 12-25-2022 Urea nitrogen [Mass/Vol] 18 mg/dL 7-25 [facility] WBC Auto (Bld) [#/Vol]Ordere d By: Shubham Rodrigues on 12-25-2022 WBC (Bld) [#/Vol] 6.8 10*3/uL 3.8-11.6 [facility] Lab Reportson 08-21-2022 Lab Reports [id number] 59#1.00CD:127 Normal [facility] Lab Reportson 08-14-2022 Lab Reports [id number] 16#1.00CD:127 Normal [facility] PTH INTACTon 08-13-2022 PTH, Intact 59 pg/mL Normal 15-65 [facility] Comment on above: Performed By: #### P THINT ####[facility] [address] [place] [id number]. Mikaela Caldwell BUNon 08-12-2022 Urea nitrogen [Mass/Vol] 12.0 mg/dL Normal 7.0-18.0 [facility] Comment on above: Performed By: #### C A, K, CL, BUN, URIC, CO2, CREA, NA ####[facility] [address] [place], [place] [address]Sn. Mikaela Caldwell CALCIUMon 08-12-2022 Calcium [Mass/Vol] 9.0 mg/dL Normal 8.5-10.1 [facility] Comment on above: Performed By: #### C A, K, CL, BUN, URIC, CO2, CREA, NA ####[facility] [address] [place] [address]Dr. Mikaela Caldwell CHLORIDEon 08-12-2022 Chloride [Moles/Vol] 107 mmol/L Normal 98-107 [facility] Comment on above: Performed By: #### C A, K, CL, BUN, URIC, CO2, CREA, NA ####[facility] [address] [place] [address]Dr. Mikaela Caldwell CO2on 08-12-2022 CO2 [Moles/Vol] 29.7 mmol/L Normal 21.0-32.0 [facility] Comment on above: Performed By: #### C A, K, CL, BUN, URIC, CO2, CREA, NA ####[facility] [address] [place], [place] [address]Dr. Mikaela Caldwell CREATININEon 08-12-2022 Creatinine [Mass/Vol] 0.85 mg/dL Normal 0.55-1.02 [facility] Comment on above: Performed By: #### C A, K, CL, BUN, URIC, CO2, CREA, NA ####[facility] [address] [place] [address] EGFR-AF CITIZ[place] >60 Normal >=60 [facility] Comment on above: Performed By: #### C A, K, CL, BUN, URIC, CO2, CREA, NA ####[facility] [address] [place] [address]Dr. Mikaela [facility] EGFR-NON AF CITIZEN OF [place] >60 Normal >=60 [facility] Comment on above: Performed By: #### C A, K, CL, BUN, URIC, CO2, CREA, NA ####[facility] [address] [place] [address]Dr. Mikaela Caldwell NAon 08-12-2022 Sodium [Moles/Vol] 142 mmol/L Normal 136-145 [facility] Comment on above: Performed By: #### C A, K, CL, BUN, URIC, CO2, CREA, NA ####[facility] [address] [place], [place] [address]Lt. Mikaela Caldwell POTASSIUMon 08-12-2022 Potassium [Moles/Vol] 3.9 mmol/L Normal 3.5-5.1 [facility] Comment on above: Performed By: #### C A, K, CL, BUN, URIC, CO2, CREA, NA ####[facility] [address] [place], [place] [address]Sn. Mikaela Caldwell URIC ACID SERUMon 08-12-2022 Urate [Mass/Vol] 3.8 mg/dL Normal 2.6-6.0 [facility] Comment on above: Performed By: #### C A, K, CL, BUN, URIC, CO2, CREA, NA ####[facility] [address] [place], [place] [address]Le. Mikaela Caldwell Formson 07-24-2022 Forms [id number] 217#1.00CD:127 Normal [facility] Patient Educationon 07-23-19 23 Patient Education Urology [...] these instructions at home: Medicines ? Take jzct-xvs-enlxqfo and prescription medicines only as told by [...] 09/30/2008 Document Revised: 08/31/2019 Document Reviewed: 08/31/2019 [employer] Patient Education ? 2019 [employer] [facility] RAD - MISFormerly [facility] 07-22-2022 [facility] [id number] 02#1.00CD:127 [facility] Urology Office/Clinic Noteon 07-22-2022 Urology Office/Clinic [...] 01/22/[address] [address]- Additional Instructions: KUB Patient Education Kidney Stones, Kvhw-wy-Etse Charisma Carpenter , personally scribed for Dr. [...] Protein Urine Dipstick: Negative (07/22/22 09:47:00) Specific [place] Urine Dipstick: <=1.005 (07/22/22 09:47:00) Urine Appearance Urine Dipstick: Clear (07/22/22 09:47:00) Urine Color Urine Dipstick: Light yellow (07/22/22 09:47:00) Urobilinogen Urine Dipstick: Normal 0.2-1 EU/dl (07/22/22 09:47:00) pH Urine Dipstick: 5.5 (07/22/22 09:47:00) Diagnostic (more content not included)... Normal [facility] Comment on above: Result Comment: Elec tronically [...] ZENAIDA ENGLISH Date: 2022-07-18 09:03 Normal [facility] Provider Letteron 05-31-2022 Provider Letter May 31, 2022 KAROL PLASCENCIA [address] [place] [address] KAROL PLASCENCIA 1970 Dear Karol, We have [...] prompt attention to this matter. Please call [phone] Sincerely, [facility] [address] [place] [address] x 1 Normal [facility] US THYROIDon 05-15-2022 US THYROID EXAMINATION: US [...] IMPRESSION: Bilateral stable thyroid nodules TI-RADS: The [employer] TI-RADS committee's white paper recommendations for thyroid lesions classified as TR4 (moderately suspicious) are listed below: > 1.0 cm. Follow-up ultrasound in 1, 2, 3, and 5 years. > 1.5 cm. FNA. J. Am Ellen Radiol 2017;14:[id number]. Electronically authenticated by: KODY GARRISON Date: 2022-05-15 11:41 Normal [facility] MG MAMM SCREEN 3D ANN-MARIE CADon 03-27-2022 MG MAMM SCREEN 3D ANN-MARIE CAD Patient: KAROL PLASCENCIA Exam Date: 03/27/2022 : 1970 Gender:F Ordering : DR SUE WIN . Admission #: [id number] Family : Order #: [id number] CLICK HERE TO VIEW EXAM RADIOLOGY REPORT [...] prostate cancer at age 67. LOCATION: [facility] BREAST COMPOSITION: Heterogeneously dense,which may [...] M.D. on 03/27/2022 at 15:33 Normal [facility] Ammonium urate crystals dete ction in stone by infrared spectroscopyOrdered By: Jordi Mast on 12-21-2021 Ammonium urate crystals Infrared spectroscopy Ql (Stone) N/A [facility] Calcium bilirubinate measure mentOrdered By: Jordi Mast on 12-21-2021 Calcium bilirubinate (Stone) [Mass fraction] N/A [facility] Calcium carbonate measuremen tOrdered By: Jordi Mast on 12-21-2021 Calcium carbonate (Stone) [Mass fraction] N/A [facility] Calcium hydrogen phosphate d ihydrate/Total in StoneOrdered By: Jordi Mast on 12-21-2021 Calcium hydrogen phosphate dihydrate (Stone) [Mass fraction] N/A [facility] Calcium oxalate dihydrate cr ystals detection in stone by infrared spectroscopyOrdered By: Jordi Mast on 12-21-2021 Calcium oxalate dihydrate crystals Infrared spectroscopy Ql (Stone) 20 % . [facility] Calcium oxalate monohydrate/ Total in StoneOrdered By: Jordi Mast on 12-21-2021 Calcium oxalate monohydrate (Stone) [Mass fraction] 80 % . [facility] Calcium phosphate measuremen tOrdered By: Jordi Mast on 12-21-2021 Calcium phosphate (Stone) [Mass fraction] N/A [facility] Calculus analysis interpreta tion in stoneOrdered By: Jordi Mast on 12-21-2021 Calculus analysis [Interp] N/A [facility] Calculus analysis [Interp] See comment . [facility] Comment on above: Calculus received in liquid. Wet calculi must be dried before analysis, which delays reporting of results. Leaving calculi in liquid (such as water, saline, blood, urine) may lead to changes in composition. Physician questions regarding Calculi Analysis contact [facility] at: [phone]. Calculi report will follow via computer, mail or hand packer/packager delivery. Calculus analysis with calcu guera photography interpretation in stoneOrdered By: Jordi Mast on 12-21-2021 Calculus analysis with calculus photography [Interp] See comment . [facility] Comment on above: Photograph will foll ow under a separate cover Cellular material measuremen t in stone by estimated (mass/mass)Ordered By: Jordi Mast on 12-21-2021 Cellular material Est (Stone) [Mass/Mass] N/A [facility] Cholesterol/Total in StoneOr dered By: Jordi Mast on 12-21-2021 Cholesterol (Stone) [Mass fraction] N/A [facility] Composition of stoneOrdered By: Jordi Mast on 12-21-2021 Composition Nom (Stone) See comment . [facility] Comment on above: Percentage (Represen ts the % composition) Cystine measurementOrdered B y: Jordi Mast on 12-21-2021 Cystine (Unsp spec) [Moles/Vol] N/A [facility] Determination of color of ca lculusOrdered By: Jordi Mast on 12-21-2021 Color (Stone) Brown . [facility] Hydroxyapatite [Energy Diffe rence] in 24 hour UrineOrdered By: Jordi Mast on 12-21-2021 Hydroxyapatite (24H U) [Energy diff] N/A [facility] Measurement of proportion of calculus composed of dried blood (mass/mass)Ordered By: Jordi Mast on 12-21-2021 Blood.dried (Stone) [Mass fraction] N/A [facility] Newberyite/Total in StoneOrd ered By: Jordi Mast on 12-21-2021 Newberyite (Stone) [Mass fraction] N/A [facility] No Panel InformationOrdered By: Jordi Mast on 12-21-2021 Stone 2,8 Dihydroxyadenine N/A [facility] Stone Analysis Disclaimer See comment . [facility] Comment on above: This test was develo ped and its performance characteristics determined by [facility]. It has not been cleared or approved by the Food and Drug Administration. Performed at: [facility] Stone Analysis [address] [place] [address] [place], [place] [id number] Internal Combustion Engine Inspector: Jayson Santos PhD, Phone: [phone] Stone Bilirubinate N/A [facility] Stone Calcium Palmitate N/A [facility] Stone Calcium Stearate N/[facility] Stone Carbonate Apatite N/A [facility] Stone Drug or Metabolite N/A [facility] Stone Other Constituent N/A [facility] Stone Xanthine N/A [facility] Size [Entitic volume] of Sto neOrdered By: Jordi Mast on 12-21-2021 Size (Stone) [Entitic vol] 5x3 mm . [facility] Comment on above: Multiple pieces rece ived. Dimensions of the largest piece reported. Sodium urate crystals detect ion in stone by infrared spectroscopyOrdered By: Jordi Mast on 12-21-2021 Sodium urate crystals Infrared spectroscopy Ql (Stone) N/A [facility] Specimen source subject [Typ e]Ordered By: Jordi Mast on 12-21-2021 Specimen source subject Nom See comment . [facility] Comment on above: Left Ureter Triamterene measurement in c alculusOrdered By: Jordi Mast on 12-21-2021 Triamterene (Stone) [Mass fraction] N/A [facility] Triple phosphate/Total in St oneOrdered By: Jordi Mast on 12-21-2021 Triple phosphate (Stone) [Mass fraction] N/A [facility] Uric acid dihydrate crystals detection in stone by infrared spectroscopyOrdered By: Jordi Mast on 12-21-2021 Urate dihydrate crystals Infrared spectroscopy Ql (Stone) N/A [facility] COVID-19 Positive/NegativeOr dered By: Jordi Mast on 12-19-2021 SARS-CoV-2 (COVID-19) N gene ISABELLA+probe Ql (Resp) Negative Negative [facility] Comment on above: Testing for SARS-CoV -2 by RT-PCR This test was developed and its performance characteristics determined by [employer] ([employer]) and validated at the [facility]. This test has not been FDA [...] aPTT Coag (PPP) [Time] 40.1 s 25.1-36.5 [facility] Basophils Auto (Bld) [#/Vol] Ordered By: Jordi Mast on 12-13-2021 Basophils (Bld) [#/Vol] 0.1 10*3/uL 0.0-0.2 [facility] Basophils/100 WBC Auto (Bld) Ordered By: Jordi Mast on 12-13-2021 Basophils/100 WBC (Bld) 0.8 % . [facility] Blood hemoglobin measurement (mass/volume)Ordered By: Jordi Mast on 12-13-2021 Hemoglobin (Bld) [Mass/Vol] 12.8 g/dL 11.8-15.4 [facility] Blood leukocytes automated c ount (number/volume)Ordered By: Jordi Mast on 12-13-2021 WBC (Bld) [#/Vol] 6.9 10*3/uL 4.5-11.0 [facility] Creatinine and Glomerular fi ltration rate.predicted panel (S/P/Bld)Ordered By: Jordi Mast on 12-13-2021 Creatinine [Mass/Vol] 0.76 mg/dL 0.44-1.03 [facility] Eosinophils Auto (Bld) [#/Vo l]Ordered By: Jordi Mast on 12-13-2021 Eosinophils (Bld) [#/Vol] 0.3 10*3/uL 0.0-0.45 [facility] Eosinophils/100 WBC Auto (Bl d)Ordered By: Jordi Mast on 12-13-2021 Eosinophils/100 WBC (Bld) 4.9 % . [facility] Erythrocyte distribution wid th Auto (RBC) [Ratio]Ordered By: Jordi Mast on 12-13-2021 Erythrocyte distribution width (RBC) [Ratio] 14.0 % 11.9-15.3 [facility] Estimated glomerular filtrat ion rate (GFR) non- AmericanOrdered By: Jordi Mast on 12-13-2021 GFR/1.73 sq M.predicted among non-blacks MDRD (S/P/Bld) [Vol rate/Area] > 60 mL/Min [facility] Hematocrit Auto (Bld) [Volum e fraction]Ordered By: Jordi Mast on 12-13-2021 Hematocrit (Bld) [Volume fraction] 39.2 % 34.0-46.4 [facility] Laboratory - CoagulationOrde red By: Jordi Mast on 12-13-2021 PT Coag (PPP) [Time] 11.9 s 9.0-12.9 [facility] Laboratory - Hematology and Cell countsOrdered By: Jordi Mast on 12-13-2021 Nucleated RBC/100 WBC (Bld) [Ratio] 0.1 % 0-0.5 [facility] Lymphocytes Auto (Bld) [#/Vo l]Ordered By: Jordi Mast on 12-13-2021 Lymphocytes (Bld) [#/Vol] 2.0 10*3/uL 1.00-4.8 [facility] Lymphocytes/100 WBC Auto (Bl d)Ordered By: Jordi Mast on 12-13-2021 Lymphocytes/100 WBC (Bld) 28.9 % . [facility] MCH Auto (RBC) [Entitic mass ]Ordered By: Jordi Mast on 12-13-2021 MCH (RBC) [Entitic mass] 28.8 pg 24.7-34.3 [facility] MCHC Auto (RBC) [Mass/Vol]Or dered By: Jordi Mast on 12-13-2021 MCHC (RBC) [Mass/Vol] 32.6 g/dL 32.0-35.0 [facility] MCV Auto (RBC) [Entitic vol] Ordered By: Jordi Mast on 12-13-2021 MCV (RBC) [Entitic vol] 88.1 fL 80-100 [facility] Monocytes Auto (Bld) [#/Vol] Ordered By: Jordi Mast on 12-13-2021 Monocytes (Bld) [#/Vol] 0.4 10*3/uL 0.0-0.8 [facility] Monocytes/100 WBC Auto (Bld) Ordered By: Jordi Mast on 12-13-2021 Monocytes/100 WBC (Bld) 6.5 % . [facility] Neutrophils Auto (Bld) [#/Vo l]Ordered By: Jordi Mast on 12-13-2021 Neutrophils (Bld) [#/Vol] 4.1 10*3/uL 1.8-7.7 [facility] Neutrophils/100 WBC Auto (Bl d)Ordered By: Jordi Mast on 12-13-2021 Neutrophils/100 WBC (Bld) 58.9 % . [facility] No Panel InformationOrdered By: Jordi Mast on 12-13-2021 Estimated GFR () > 60 mL/Min [facility] Comment on above: GFR estimated refere nce range: According to KDOQI guidelines, <60 ml/min/1.73m2 is sufficient to diagnose a patient with chronic kidney disease. Pharmacy Creatinine Clearance (Chem N/A [facility] Platelet mean volume Auto (B ld) [Entitic vol]Ordered By: oJrdi Mast on 12-13-2021 Platelet mean volume (Bld) [Entitic vol] 7.5 fL 6.3-10.7 [facility] Platelet poor plasma interna tional normalized ratio (INR) by coagulation assay (relatOrdered By: Jordi Mast on 12-13-2021 INR Coag (PPP) [Relative time] 1.1 {INR} [facility] Comment on above: INR Therapeutic Rang [...] 12-13-2021 Platelets (Bld) [#/Vol] 345 10*3/uL 150-450 [facility] RBC Auto (Bld) [#/Vol]Ordere d By: Jordi Mast on 12-13-2021 RBC (Bld) [#/Vol] 4.45 10*6/uL 3.60-5.00 [facility] Serum or plasma calcium cielo urement (mass/volume)Ordered By: Jordi Mast on 12-13-2021 Calcium [Mass/Vol] 9.2 mg/dL 8.2-10.2 [facility] Serum or plasma chloride ankita surement (moles/volume)Ordered By: Jordi Mats on 12-13-2021 Chloride [Moles/Vol] 102 mmol/L 95-114 [facility] Serum or plasma glucose cielo urement (mass/volume)Ordered By: Jordi Mast on 12-13-2021 Glucose [Mass/Vol] 90 mg/dL 70-100 [facility] Comment on above: ADA recommended refe rence range Random Glucose Reference Range is dependent on time and content of last meal. Glucose of more than 200 mg/dL in a nonstressed, ambulatory subject supports the diagnosis of Diabetes Mellitus. Serum or plasma potassium me asurement (moles/volume)Ordered By: Jordi Mast on 12-13-2021 Potassium [Moles/Vol] 3.6 mmol/L 3.5-5.1 [facility] Serum or plasma sodium measu rement (moles/volume)Ordered By: Jordi Mast on 12-13-2021 Sodium [Moles/Vol] 139 mmol/L 136-146 [facility] Serum or plasma total carbon dioxide measurement (moles/volume)Ordered By: Jordi Mast on 12-13-2021 CO2 [Moles/Vol] 27.4 mmol/L 22.0-30.0 [facility] Serum or plasma urea nitroge n measurement (mass/volume)Ordered By: Jordi Mast on 12-13-2021 Urea nitrogen [Mass/Vol] 13 mg/dL 9-23 [facility] MRI KNEE RT WO CONon 022 [...] by: ZENAIDA ENGLISH Date: 2021-12-12 17:04 Normal [facility] XR KUB 1 VIEWon 12-10-2021 XR KUB [...] ZENAIDA ENGLISH Date: 2021-12-10 07:56 Normal [facility] COVID-19 SOFIAOrdered By: Jeison Mast on 11-27-2021 SARS-CoV+SARS-CoV-2 (COVID-19) Ag IA.rapid Ql (Resp) Negative Negative [facility] Comment on above: This is a duplicate Mony SARS Antigen (MILES) result to be used for statistical tracking purpose only. No Panel InformationOrdered By: Jordi Mast on 11-27-2021 SARS Antigen (LFIA) [facility] XR KUB 1 VIEWon 07-26-2022 XR [...] by: ZENAIDA ENGLISH Date: 2021-11-20 18:35 Normal [facility] CULTURE URINEon 11-15-2021 CULTURE URINE Isolate 1 [...] F Trimethoprim/Sulfam ethoxazole <=20 S F Normal [facility] Comment on above: Performed By: #### C VDTBH #### [facility] [address] [address] [address] Mikaela Caldwell CARDIAC EDGARDO 3-6on 2 CK [Catalytic activity/Vol] 54 U/L Normal 26-192 [facility] Comment on above: Performed By: #### C VDTBH #### [facility] [address] [address] [address] Mikaela Caldwell CK.MB [Mass/Vol] 2.05 ng/mL Normal <=3.60 [facility] Comment on above: Performed By: #### C VDTBH #### [facility] [address] [address] [address] Mikaela Caldwell HSTROP 6.5 pg/mL Normal 4.0-51.3 [facility] Comment on above: Result Comment: CUT- OFF POINTS HAVE BEEN ESTABLISHED BASED ON THE FOURTH UNIVERSAL DEFINITIONS OF MYOCARDIAL INFARCTION. THE UPPER REFERENCE LIMIT (URL) OF TROPONIN, DEFINED THE 99TH PERCENTILE OF cTnI DISTRIBUTION IN A REFERENCE POPULATION, HAS BEEN CONFIRMED THE DECISION THRESHOLD FOR NC DIAGNOSIS. Performed By: #### C VDTBH #### [facility] [address] [address] [address] Mikaela Caldwell CK [Catalytic activity/Vol] 63 U/L Normal 26-192 [facility] Comment on above: Performed By: #### C MREP #### [facility] [address] [address] [address] Mikaela Caldwell CK.MB [Mass/Vol] 2.28 ng/mL Normal <=3.60 [facility] Comment on above: Performed By: #### C MREP #### [facility] [address] [address] [address] Mikaela Caldwell HSTROP 5.1 pg/mL Normal 4.0-51.3 [facility] Comment on above: Result Comment: CUT- OFF POINTS HAVE BEEN ESTABLISHED BASED ON THE FOURTH UNIVERSAL DEFINITIONS OF MYOCARDIAL INFARCTION. THE UPPER REFERENCE LIMIT (URL) OF TROPONIN, DEFINED THE 99TH PERCENTILE OF cTnI DISTRIBUTION IN A REFERENCE POPULATION, HAS BEEN CONFIRMED THE DECISION THRESHOLD FOR NC DIAGNOSIS. Performed By: #### C MREP #### [facility] [address] [address] [address] Mikaela Caldwell CARDIAC EDGARDO ADMITon 022 CK [Catalytic activity/Vol] 77 U/L Normal 26-192 [facility] Comment on above: Performed By: #### C MADM, LIPA, CMP #### [facility] [address] [address] [address] Mikaela Caldwell CK.MB [Mass/Vol] 2.40 ng/mL Normal <=3.60 [facility] Comment on above: Performed By: #### C MADM, LIPA, CMP #### [facility] [address] [address] [address] Mikaela Caldwell HSTROP 5.8 pg/mL Normal 4.0-51.3 [facility] Comment on above: Result Comment: CUT- OFF POINTS HAVE BEEN ESTABLISHED BASED ON THE FOURTH UNIVERSAL DEFINITIONS OF MYOCARDIAL INFARCTION. THE UPPER REFERENCE LIMIT (URL) OF TROPONIN, DEFINED THE 99TH PERCENTILE OF cTnI DISTRIBUTION IN A REFERENCE POPULATION, HAS BEEN CONFIRMED THE DECISION THRESHOLD FOR NC DIAGNOSIS. Performed By: #### C MADM, LIPA, CMP #### [facility] [address] [place] [address] Dr. Mikaela Caldwell JOYCE 29 ng/mL Normal 9-82 [facility] Comment on above: Performed By: #### C MADM, LIPA, CMP #### [facility] [address] [place] [address] Dr. Mikaela Caldwell CBC AUTO DIFFon 11-13-2021 BASO # 0.1 103/ul Normal 0.0-0.1 [facility] Comment on above: Performed By: #### C BC #### [facility] [address] [place] [address] Dr. Mikaela Caldwell Basophils/100 WBC (Bld) 0.5 % Normal 0.2-2.0 [facility] Comment on above: Performed By: #### C BC #### [facility] [address] [place] [address] Dr. Mikaela Caldwell EO # 0.3 103/ul Normal 0.0-0.7 [facility] Comment on above: Performed By: #### C BC #### [facility] [address] [address] [address] Mikaela Caldwell Eosinophils/100 WBC (Bld) 2.1 % Normal 0.9-7.0 [facility] Comment on above: Performed By: #### C BC #### [facility] [address] [place] [address] Dr. Mikaela Caldwell Erythrocyte distribution width (RBC) [Ratio] 13.2 % Normal 11.0-15.0 [facility] Comment on above: Performed By: #### C BC #### [facility] [address] [place] [address] Dr. Mikaela Caldwell Hematocrit (Bld) [Volume fraction] 40.9 % Normal 36.0-48.0 [facility] Comment on above: Performed By: #### C BC #### [facility] [address] [place] [address] Dr. Mikaela Caldwell Hemoglobin (Bld) [Mass/Vol] 13.1 g/dL Normal 12.0-16.0 [facility] Comment on above: Performed By: #### C BC #### [facility] [address] [place] [address] Dr. Mikaela Caldwell IG # 0.07 10e3/ul Critically high 0.00-0.03 [facility] Comment on above: Performed By: #### C BC #### [facility] [address] [place] [address] Dr. Mikaela Caldwell IG % 0.5 % Normal 0.0-0.5 [facility] Comment on above: Performed By: #### C BC #### [facility] [address] [place] [address] Dr. Mikaela Caldwell LYMPH # 1.8 103/ul Normal 1.2-3.8 [facility] Comment on above: Performed By: #### C BC #### [facility] [address] [place] [address] Dr. Mikaela Caldwell Lymphocytes/100 WBC (Bld) 12.5 % Critically low 20.5-60.0 [facility] Comment on above: Performed By: #### C BC #### [facility] [address] [place] [address] Dr. Mikaela Caldwell MANUAL DIFF REQ NO Normal [facility] Comment on above: Performed By: #### C BC #### [facility] [address] [place] [address] Dr. Mikaela Caldwell MCH (RBC) [Entitic mass] 29.2 pg Normal 26.7-34.0 [facility] Comment on above: Performed By: #### C BC #### [facility] [address] [address] [address] Mikaela Caldwell MCHC (RBC) [Mass/Vol] 32.0 g/dL Normal 29.9-35.2 [facility] Comment on above: Performed By: #### C BC #### [facility] [address] [address] [address] Mikaela Caldwell MCV (RBC) [Entitic vol] 91.1 fL Normal 81.0-99.0 [facility] Comment on above: Performed By: #### C BC #### [facility] [address] [address] [address] Mikaela Caldwell MONO # 0.7 103/ul Normal 0.3-0.8 [facility] Comment on above: Performed By: #### C BC #### [facility] [address] [place] [address] Dr. Mikaela Caldwell Monocytes/100 WBC (Bld) 5.1 % Normal 1.7-12.0 [facility] Comment on above: Performed By: #### C BC #### [facility] [address] [address] [address] Mikaela Caldwell NEUT # 11.1 103/ul Critically high 1.4-6.5 [facility] Comment on above: Performed By: #### C BC #### [facility] [address] [place] [address] Dr. Mikaela Caldwell Neutrophils/100 WBC (Bld) 79.3 % Critically high 43.0-75.0 [facility] Comment on above: Performed By: #### C BC #### [facility] [address] [place] [address] Dr. Mikaela Caldwell Platelet mean volume (Bld) [Entitic vol] 9.2 fL Critically low 9.5-13.5 [facility] Comment on above: Performed By: #### C BC #### [facility] [address] [place] [address] Dr. Mikaela Caldwell PLT 420 103/ul Normal 150-450 [facility] Comment on above: Performed By: #### C BC #### [facility] [address] [place], [place] [address] Dr. Mikaela Caldwell RBC 4.49 106/ul Normal 4.20-5.40 [facility] Comment on above: Performed By: #### C BC #### [facility] [address] [place], [place] [address] Dr. Mikaela Caldwell WBC 14.0 103/ul Critically high 4.0-11.0 [facility] Comment on above: Performed By: #### C BC #### [facility] [address] [place], [place] [address] ABD/PELVIS WO CONon [...] GEORGE LLANES Date: 2021-11-13 02:57 Normal [facility] SARS-CoV-2 (COVID-19) RNA ISABELLA+probe Ql (Unsp spec) Not detected Normal NOT DETECTED [facility] Comment on above: Result [...] for this test is supported by the Commercial Ro[employer]er of Health and Human Service's declaration that [...] used). Performed By: #### C VDTB #### [facility] [address] [place] [address] Dr. Mikaela Caldwell ER URINE PROFILEon 2 Bilirubin Ql (U) Negative Normal NEGATIVE [facility] Comment on above: Performed By: #### AUBREE ROGERS #### [facility] [address] [place] [address] Dr. Mikaela Caldwell Clarity (U) CLEAR Normal CLEAR [facility] Comment on above: Performed By: #### KENDELL ROGERSRO #### [facility] [address] [place] [address] Dr. Mikaela Caldwell Color (U) LT. YELLOW Normal YELLOW [facility] Comment on above: Performed By: #### AUBREE ROGRES #### [facility] [address] [place] [address] Dr. Mikaela Caldwell ERUAHD A micrscopic examination will be performed if indicated. Normal [facility] Comment on above: Performed By: #### KENDELL ROGERSRO #### [facility] [address] [place] [address] Dr. Mikaela Caldwell Glucose Ql (U) Negative Normal NEGATIVE [facility] Comment on above: Performed By: #### Jimy ROSAS UMICRO #### [facility] [address] [address] [address] Mikaela Caldwell Hemoglobin Ql (U) TRACE-INTACT Abnormal NEGATIVE [facility] Comment on above: Performed By: #### E RALPH, UMICRO #### [facility] [address] [address] [address] Mikaela Caldwell Ketones Ql (U) Negative Normal NEGATIVE [facility] Comment on above: Performed By: #### Jimy ROSAS UMICRO #### [facility] [address] [place] [address] Dr. Mikaela Caldwell LEUKOCYTES TRACE Abnormal NEGATIVE [facility] Comment on above: Performed By: #### Jimy ROSAS UMICRO #### [facility] [address] [place] [address] Dr. Mikaela Caldwell Nitrite Ql (U) Positive Abnormal NEGATIVE [facility] Comment on above: Performed By: #### Jimy ROSAS UMICRO #### [facility] [address] [place] [address] Dr. Mikaela Caldwell pH (U) 6.5 [pH] Normal 5-9 [facility] Comment on above: Performed By: #### Jimy ROSAS UMICRO #### [facility] [address] [place] [address] Dr. Mikaela Caldwell SPEC GRAVITY 1.020 Normal 1.005-<=1.025 [facility] Comment on above: Performed By: #### Jimy ROSAS UMICRO #### [facility] [address] [place] [address] Dr. Mikaela Caldwell UA PROTEIN Negative Normal NEGATIVE/ TRACE [facility] Comment on above: Performed By: #### Jimy ROSAS UMICRO #### [facility] [address] [place] [address] Dr. Mikaela Caldwell UR MICRO IND INDICATED Normal [facility] Comment on above: Performed By: #### Jimy ROSAS UMICRO #### [facility] [address] [address] [address] Mikaela Caldwell Urobilinogen Qn (U) 0.2 {Lisa'U}/dL Normal 0.2 - 1. 0 [facility] Comment on above: Performed By: #### E AUBREE ROSAS #### [facility] [address] [address] [address] Mikaela Caldwell LACTATE/LACTIC ACIDon 2021 Lactate [Moles/Vol] 1.2 mmol/L Normal 0.4-1.9 [facility] Comment on above: Performed By: #### L ACT ####[facility] [id number] [address]Dr. Mikaela Caldwell LIPASEon 11-13-2021 Lipase [Catalytic activity/Vol] 97.0 U/L Normal 73.0-393.0 [facility] Comment on above: Performed By: #### C ANIL LIPA, CMP #### [facility] [address] [address] [address] Mikaela Caldwell PROF 14(COMP METB)on 022 Albumin [Mass/Vol] 3.5 g/dL Normal 3.4-5.0 [facility] Comment on above: Performed By: #### C CANDELARIAM LIPA, CMP #### [facility] [address] [address] [address] Mikaela Caldwell Albumin/Globulin [Mass ratio] 0.9 {ratio} Normal [facility] Comment on above: Performed By: #### C MADM, LIPA, CMP #### [facility] [address] [place] [address] Dr. Mikaela Caldwell ALP [Catalytic activity/Vol] 161 U/L Critically high 46-116 [facility] Comment on above: Performed By: #### C MADM, LIPA, CMP #### [facility] [address] [address] [address] Mikaela Caldwell ALT [Catalytic activity/Vol] 30 U/L Normal 14-59 [facility] Comment on above: Performed By: #### C MADM, LIPA, CMP #### [facility] [address] [address] [address] Mikaela Caldwell Anion gap [Moles/Vol] 10.4 mmol/L Normal [facility] Comment on above: Performed By: #### C MADM, LIPA, CMP #### [facility] [address] [address] [address] Mikaela Caldwell AST [Catalytic activity/Vol] 17 U/L Normal 15-37 [facility] Comment on above: Performed By: #### C MADM, LIPA, CMP #### [facility] [address] [address] [address] Mikaela Caldwell Bilirubin [Mass/Vol] 0.3 mg/dL Normal 0.2-1.0 [facility] Comment on above: Performed By: #### C MADM, LIPA, CMP #### [facility] [address] [address] [address] Mikaela Caldwell Calcium [Mass/Vol] 8.8 mg/dL Normal 8.5-10.1 [facility] Comment on above: Performed By: #### C MADM, LIPA, CMP #### [facility] [address] [address] [address] Mikaela Caldwell Chloride [Moles/Vol] 106 mmol/L Normal 98-107 [facility] Comment on above: Performed By: #### C MADM, LIPA, CMP #### [facility] [address] [address] [address] Mikaela Caldwell CO2 [Moles/Vol] 30.1 mmol/L Normal 21.0-32.0 [facility] Comment on above: Performed By: #### C MADM, LIPA, CMP #### [facility] [address] [address] [address] Mikaela Caldwell Creatinine [Mass/Vol] 1.02 mg/dL Normal 0.55-1.02 [facility] Comment on above: Performed By: #### C MADM, LIPA, CMP #### [facility] [address] [address] [address] Mikaela Caldwell EGFR-AF CITIZEN OF [place] >60 Normal >=60 [facility] Comment on above: Performed By: #### C MADM, LIPA, CMP #### [facility] [address] [address] [address] Mikaela Caldwell EGFR-NON AF CITIZEN OF [place] 57 mL/min/1.73m2 Critically low >=60 [facility] Comment on above: Performed By: #### C MADM, LIPA, CMP #### [facility] [address] [place] [address] Dr. Mikaela Caldwell Globulin (S) [Mass/Vol] 4.0 g/dL Normal [facility] Comment on above: Performed By: #### C MADMarii LIPA, CMP #### [facility] [address] [place] [address] Dr. Mikaela Caldwell Glucose [Mass/Vol] 113 mg/dL Critically high 74-106 [facility] Comment on above: Performed By: #### C ANIL LIPA, CMP #### [facility] [address] [place] [address] Dr. Mikaela Caldwell Potassium [Moles/Vol] 3.5 mmol/L Normal 3.5-5.1 [facility] Comment on above: Performed By: #### C ANIL LIPA, CMP #### [facility] [address] [place] [address] Dr. Mikaela Caldwell Protein [Mass/Vol] 7.5 g/dL Normal 6.4-8.2 [facility] Comment on above: Performed By: #### C MADMarii LIPA, CMP #### [facility] [address] [place] [address] Dr. Mikaela Caldwell Sodium [Moles/Vol] 143 mmol/L Normal 136-145 [facility] Comment on above: Performed By: #### C MADM LIPA, CMP #### [facility] [address] [place] [address] Dr. Mikaela Caldwell Urea nitrogen [Mass/Vol] 18.0 mg/dL Normal 7.0-18.0 [facility] Comment on above: Performed By: #### C MADM LIPA, CMP #### [facility] [address] [place] [address] Dr. Mikaela Caldwell Urea nitrogen/Creatinine [Mass ratio] 17.6 mg/mg Normal [facility] Comment on above: Performed By: #### C RONEN MA, CMP #### [facility] [address] [place] [address] Dr. Mikaela Caldwell URINE MICROSCOPIC ONLYon BACTERIA TRACE Abnormal NONE SEEN [facility] Comment on above: Performed By: #### Jimy ROSAS, UMICRO #### [facility] [address] [place] [address] Dr. Mikaela Caldwell Bacteria identified Cx Nom (U) INDICATED Normal [facility] Comment on above: Performed By: #### Jimy ROSAS UMICRO #### [facility] [address] [place] [address] Dr. Mikaela Caldwell CAST NONE SEEN Normal NONE SEEN [facility] Comment on above: Performed By: #### Jimy ROSAS UMICRO #### [facility] [address] [place] [address] Dr. Mikaela Caldwell Crystals LM Nom (Urine sed) NONE SEEN Normal NONE SEEN [facility] Comment on above: Performed By: #### Jimy ROSAS UMICRO #### [facility] [address] [place] [address] Dr. Mikaela Caldwell Epithelial cells LM Ql (Urine sed) NONE SEEN Normal NONE SEEN /RARE [facility] Comment on above: Performed By: #### Jimy ROSAS UMICRO #### [facility] [address] [place] [address] Dr. Mikaela Caldwell MUCOUS NONE SEEN Normal NONE SEEN [facility] Comment on above: Performed By: #### Jimy ROSAS UMICRO #### [facility] [address] [place] [address] Dr. Mikaela Caldwell RBC 0-2 Normal 0-2 [facility] Comment on above: Performed By: #### Jimy ROSAS UMICRO #### [facility] [address] [place] [address] Dr. Mikaela Caldwell WBC 5-10 Abnormal NONE SEEN [facility] Comment on above: Performed By: #### E AUBREE ROSAS #### [facility] [address] [address] [address] Mikaela Caldwell XR CHEST 2 Von [...] GEORGE LLANES Date: 2021-11-13 02:46 Normal [facility] Vital Signs Date Time Vital Sign Value Performing Clinician Facility 12-19-2022 09:45-0400 Body height 165.1 cm Shubham Chase Other [facility] Other 12-19-2022 09:45-0400 Body mass index (BMI) [Ratio] 39.27 kg/m2 Shubham Chase Other [facility] Other 12-19-2022 09:45-0400 Body weight 107.05 kg Shubham Rodrigues Other [facility] Other 07-22-2022 09:50-0400 Blood Pressure Location Jordi MAST [employer] [facility] 07-22-2022 09:50-0400 Diastolic blood pressure 81 mm[Hg] Jordi MAST [facility] 07-22-2022 09:50-0400 Heart rate 72 /min Jordi MAST [facility] 07-22-2022 09:50-0400 Respiratory rate 16 /min Jordi MAST [facility] 07-22-2022 09:50-0400 Systolic blood pressure 129 mm[Hg] Jordi MAST [facility] 12-21-2021 17:00-0400 Diastolic blood pressure 82 mm[Hg] MD Jordi Mast Work Phone: [facility] 12-21-2021 17:00-0400 Heart rate 79 /min MD Jordi Mast Work Phone: [facility] 12-21-2021 17:00-0400 Respiratory rate 16 /min MD Jordi Mast Work Phone: [facility] 12-21-2021 17:00-0400 SaO2% (BldA) [Mass fraction] 100 % MD Jordi Mast Work Phone: [facility] 12-21-2021 17:00-0400 Systolic blood pressure 118 mm[Hg] MD Jordi Mast Work Phone: [facility] 12-21-2021 15:35-0400 Body weight 118 mg MD Jordi Mast Work Phone: [facility] 12-21-2021 14:57-0400 Body height 165.1 cm MD Jordi Mast Work Phone: [facility] 12-21-2021 14:57-0400 Body mass index (BMI) [Ratio] 38.5 kg/m2 MD Jordi Mast Work Phone: [facility] 12-21-2021 14:57-0400 Body weight 105 kg MD Jordi Mast Work Phone: [facility] 12-21-2021 12:56-0400 Body temperature 98.4 [degF] MD Jordi Mast Work Phone: [facility] 11-29-2021 14:51-0400 Diastolic blood pressure 84 mm[Hg] MD Jordi Mast Work Phone: [facility] 11-29-2021 14:51-0400 Heart rate 80 /min MD Jordi Mast Work Phone: [facility] 11-29-2021 14:51-0400 Respiratory rate 16 /min MD Jordi Mast Work Phone: [facility] 11-29-2021 14:51-0400 SaO2% (BldA) [Mass fraction] 98 % MD Jordi Mast Work Phone: [facility] 11-29-2021 14:51-0400 Systolic blood pressure 117 mm[Hg] MD Jordi Mast Work Phone: [facility] 11-29-2021 12:45-0400 Body height 165.1 cm MD Jordi Mast Work Phone: [facility] 11-29-2021 12:45-0400 Body mass index (BMI) [Ratio] 37.4 kg/m2 MD Jordi Mast Work Phone: [facility] 11-29-2021 12:45-0400 Body weight 102.05 kg MD Jordi Mast Work Phone: [facility] 11-29-2021 12:24-0400 Body temperature 97.9 [degF] MD Jordi Mast Work Phone: [facility] Encounters Encounter Date Encounter Type Care Provider Facility Start: 02-02-2024 ambulatory Jordi MAST Facility :[facility] Start: 05-12-2023 End: 05-13-2023 ambulatory [facility] Start: 05-12-2023 Encounter for gynecological examination (general) (routine) without abnormal findings [facility] Start: 02-10-2023 End: 02-10-2023 ambulatory Shubham Rodrigues Other [facility] Other Start: 02-10-2023 Postop follow up vis it related to original px Shubham Rodrigues [facility] Start: 02-10-2023 Telephone encounter Shubham Olexa [facility] Start: 01-27-2023 End: 01-28-2023 ambulatory Jordi MAST Facility:[facility] [place] Start: 01-07-2023 End: 01-07-2023 ambulatory Shubham Olexa Other [facility] Other Start: 01-07-2023 Postop follow up vis it related to original px Shubham Olexa [facility] Start: 01-01-2023 End: 01-01-2023 ambulatory Sue Win Facility:[facility] Start: 12-31-2022 End: 12-31-2022 ambulatory Shubham Olexa Other [facility] Other Start: 12-31-2022 Telephone encounter Shubham Bullockxa [facility] Start: 12-25-2022 End: 12-25-2022 ambulatory Sue Win Facility:[facility] Start: 12-25-2022 End: 12-25-2022 ambulatory MD Sue Win Work Phone: [facility] Work Phone: Start: 12-25-2022 End: 12-25-2022 Patient encounter procedure MD Sue Win Work Phone: [facility] Work Phone: Start: 12-19-2022 End: 12-19-2022 ambulatory Shubham Olexa Other [facility] Other Start: 12-19-2022 Office outpatient vi sit 25 minutes Shubham Olexa [facility] Start: 11-25-2022 End: 11-25-2022 ambulatory Shubham Olexa Other [facility] Other Start: 11-25-2022 Office outpatient ne w 45 minutes Shubham Olexa [facility] Start: 08-12-2022 End: 08-13-[address] JORDI MAST Facility: Start: 07-22-2022 End: 07-23-2022 ambulatory Jordi MAST Facility:[facility] Start: 07-22-2022 End: 07-22-2022 Patient encounter procedure Jordi MAST [facility] Start: 07-18-2022 End: 07-19-[address] JORDI MAST Facility:[facility] Start: 05-15-2022 End: 05-16-[address] HARVEY BURCH Facility:[facility] Start: 03-27-2022 End: 03-28-[address] SUE WIN . Facility:[facility] Start: 12-21-2021 End: 12-21-2021 Admission to same day surgery center MD [facility]ordi Mast [facility] [place] Start: 12-19-2021 End: 12-19-2021 Patient encounter procedure MD Jordi Mast Work Phone: [facility] Start: 12-13-2021 End: 12-13-2021 Patient encounter procedure MD Jordi Mast Work Phone: [facility] Start: 12-12-2021 End: 12-13-[address] SUE WIN . Facility:[facility] Start: 12-10-2021 End: 12-11-[address] JORDI MAST Facility:[facility] Start: 11-29-2021 End: 11-29-2021 Admission to same day surgery center MD Jordi Mast Work Phone: [facility] [place] Start: 11-27-2021 End: 11-27-2021 Patient encounter procedure MD Jordi Mast Work Phone: [facility] Start: 11-21-2021 End: 11-21-2021 Patient encounter procedure Jordi MAST [facility] Start: 11-20-2021 End: 11-21-[address] JORDI MAST Facility:[facility] Start: 11-13-2021 End: 11-13-[address] SUE WIN . Facility:[facility] Start: 10-03-2021 End: 10-04-[address] SUE WIN . Facility:[facility] Start: 03-05-2021 End: 03-05-2021 Patient encounter procedure Sue Win MD Work Phone: [facility] Start: 03-05-2021 End: 03-05-2021 Subsequent hospital visit by physician Sue Win MD Work Phone: [facility] Comment on above: Vaginal discharge; Women's annual routine gynecological examination Start: 02-25-2019 End: 02-25-2019 Subsequent [facility] Comment on above: Women's annual [...] ant neoplasm of breast Breast cancer screen [facility] Start: 03-13-2022 End: 03-13-2022 Patient encounter procedure 03/13/2022 Office Visit Obstetrics and Gynecology Rosaura Yang MD [address] [place] [address] [place] [id number] [facility] Start: 02-25-2022 Screening for malign ant neoplasm of cervix [facility] Start: 12-21-2021 End: 12-21-2021 [facility] Work Phone: Start: 12-21-2021 Cystoscopy OR Cysto/Retro/Stent/Stone /Holmium Laser (Left) [facility] Start: 12-21-2021 Diagnostic radiograp hy of abdomen XR [facility] Start: 12-21-2021 End: 12-21-2021 Admission to same day surgery center Departed Surgical Day Care [facility] [place] Start: 12-21-2021 Diagnostic radiograp hy of abdomen XR [facility] Start: 12-19-2021 End: 12-19-2021 Patient encounter procedure Departed Clinical [facility] Start: 12-13-2021 End: 12-13-2021 Patient encounter procedure Departed Clinical [facility] Start: 11-29-2021 [facility] Work Phone: Start: 11-29-2021 [facility] Work Phone: Start: 02-23-2021 Cervical cancer screen Cervical canc er screen [facility] [place], [place] Start: 02-11-2021 COVID-19 Vaccine (3 - Pfizer booster) COVID-19 Vaccine (3 - Pfizer booster) [facility] Start: 02-28-2020 Breast cancer screen Breast cancer s creen [place], [place] Start: 03-27-2019 Influenza vaccination Flu vaccine (# 1) [place], [place] Comment on above: Postponed from 12/27 (Not Indicated) Start: 03-25-2019 Diabetes screen Diabetes screen [place], [place] Comment on above: Postponed from 07/08 (Not Indicated) Start: 03-25-2019 DTaP/Tdap/Td vaccine (1 - Tdap) DTaP/Tdap/Td vaccine (1 - Tdap) [place], [place] Comment on above: Postponed from 07/08 (Patient Refused) Start: 03-25-2019 HIV screen HIV screen [place], [place] Comment on above: Postponed from 07/08 (Patient Refused) Start: 03-25-2019 Lipid screen Lipid screen [place], [place] Comment on above: Postponed from 07/08 (Not Indicated) Start: 2018 Colon cancer screen colonoscopy Colon cancer screen colonoscopy [place], [place] Start: 2018 Shingles Vaccine (1 of 2) Shingles Vaccine (1 of 2) [facility] Start: 2013 Screening for malign ant neoplasm of colon Colon cancer screen colonoscopy [facility] Start: 2008 Diabetes screen Diabetes screen [facility] Start: 2008 Lipid panel Lipid screen [facility] Start: 1998 Screening for malign ant neoplasm of cervix HPV (without or with Pap) [facility] Start: 07-09-1987 DTaP/Tdap/Td vaccine (1 - Tdap) DTaP/Tdap/Td vaccine (1 - Tdap) [facility] Start: 07-09-1983 HIV screening HIV screen [facility] Start: 1968 Hepatitis C screening Hepatitis C sc reen [facility] End: 03-05-2021 Culture, Genital [facility] Work Phone: Comment on above: 1 Occurrences starti ng 03/05/2021 until 03/05/2021 End: 02-25-2019 Cytopathology procedure, preparation of smear, genital source PAP SMEAR Lab Routine Women's Annual Routine Gynecological Examination 1 Occurrences starting 02/25/2019 until 02/25/2019 [facility] [place], [place] Comment on above: 1 Occurrences starti ng 02/25/2019 until 02/25/2019 End: 03-05-2021 Cytopathology procedure, preparation of smear, genital source PAP SMEAR Lab Routine Women's annual routine gynecological examination 1 Occurrences starting 03/05/2021 until 03/05/2021 [facility] Work Phone: Comment on above: 1 Occurrences starti ng 03/05/2021 until 03/05/2021 Patient Education Cystoscopy (DC) [facility] Work Phone: Patient referral [facility] Work Phone: Immunizations Immunization Date Immunization Notes Care Provider Fa cility 09-29-2021 COVID-19 mRNA-1273 (Moderna) MD Jordi Mast Work Phone: [facility] 02-08-2021 Influenza, injectabl e, Madin Mary Canine Kidney, preservative free, quadrivalent Sue Win MD Work Phone: [facility] Work Phone: 08-12-2020 COVID-19 mRNA-1273 (Moderna) MD Jordi Mast Work Phone: [facility] 08-12-2020 COVID-19, Pfizer, PF , 30mcg/0.3mL Sue Win MD Work Phone: [facility] 07-17-2020 SARS-CoV-2 (COVID-19 ) mRNA-1273 vaccine Jordi MAST [facility] 07-15-2020 COVID-19 mRNA-1273 (Moderna) MD oJrdi Mast Work Phone: [facility] 07-15-2020 COVID-19, Pfizer, PF , 30mcg/0.3mL Sue Win MD Work Phone: [facility] Work Phone: 05-03-2020 Influenza, injectabl e, Madin Mary Canine Kidney, preservative free, quadrivalent Sue Win MD Work Phone: [employer] Work Phone: 02-08-2020 pneumococcal conjuga te vaccine, 13 valent Sue Win MD Work Phone: [employer] Work Phone: Payers Date Payer Category Payer Self-pay 2019 Unknown [employer] [address] xxxxxxxx 2019-Present [phone] [address] [place] [address] xxxxxxxx [id number] 1968 Unknown [id number] 1968 Unknown [id number] 1968 Unknown [id number] [id number] 1968 Unknown [id number] [id number] 1968 Unknown [id number] [id number] 1968 Unknown [id number] [id number] 1968 Unknown [id number] [id number] 1968 Unknown [id number] [id number] 1968 Unknown [id number] [id number] 1968 Unknown [id number] [id number] 1968 Unknown [id number] [id number] 1968 Unknown [id number] [id number] 1968 Unknown [id number] [id number] 1959 Unknown [id number] Unknown [id number] Unknown [id number] Social History Date Type Detail Facility Start: 02-25-2019 End: 12-25-2022 Tobacco smoking status NHIS Never smoker [place] Start: 02-25-2019 [facility] [place] [place] Start: 1970 Sex Assigned At Not on file [place], [place] Start: 07-30-2012 Tobacco use and exposure [facility]ok[facility] Start: 03-05-2021 Alcohol intake Current drinke r of alcohol (finding) [facility] Phone: Tobacco smoking status Never [facility] Start: 1970 Sex Assigned At Female F [facility] Goals Date Patient Goal Desired Activity /State Functional Status Date Assessment Result Facility 07-22-2022 Functional Status N/A [facility] 11-21-2021 Functional Status N/A [facility] Clinical Notes 10-03-2021 to 02-10-2023 Note [...] Other specified postprocedural states (ICD-10 - Z98.890) [facility] Other 09-12-2023 Evaluation note* Encounter Date Diagnosis [...] Other specified postprocedural states (ICD-10 - Z98.890) [facility] Other 09-05-2023 Evaluation note* Encounter Date Diagnosis Assessment Notes Treatment Notes Treatment Clinical Notes Dec, Other specified postprocedural states (ICD-10 - Z98.890) [facility] Other 08-24-2023 Evaluation note* Encounter Date Diagnosis [...] right knee, subsequent encounter (ICD-10 - S83.241D) [facility] Other 07-31-2023 Evaluation note* Encounter Date Diagnosis [...] Pain in left knee (ICD-10 - M25.562) [facility] Other 03-27-2023 Hospital Discharge instructions Patient Education 07/22/2022 10:14:42 Kidney Stones, [id number] Kidney Stones Kidney stones are rock-like masses [...] Follow these instructions at home: Medicines Take vawf-[id number]-ynfwrfi and prescription medicines only as told by [...] Document Reviewed: 08/31/2019 Elsevier Patient Education 2019 Paperlit. Follow Up Care 12/26/2021 13:33:59 With:MANNIE ARREGUIN, Jordi Mckeon, URL Address: [facility] [place] [id number]- When:01/22/2023 Comments:ANNAMARIE [facility] [place] [id number] Hospital Discharge instructions Patient Education 11/21/2021 12:49:44 Kidney Stones, Wmmr-wj-Pmtv Kidney Stones Kidney stones are rock-like masses [...] Follow these instructions at home: Medicines Take xpsh-xid-aqiixtg and prescription medicines only as told by [...] 09/30/2008 Document Revised: 08/31/2019 Document Reviewed: 08/31/2019 [employer] Patient Education 2020 Paperlit. Follow Up Care 11/14/2021 08:29:10 With:MANNIE ARREGUIN, Jordi Mckeon, URL Address: [address] [place] [address] When: Unknown [facility] 07-19-2022 NoteOPERATIVE NOTE OPERATION DATE: 11/13/2021 [...] placed per urethra. A well lubricated, 22 [place]ger cystourethroscope was passed into the bladder. Moderately tight at the bladder neck. Once into the bladder, teran endoscopy reveals no tumors or stones or diverticula. She does have a moderate cystocele present. Left retrograde pyelogram was then performed utilizing a 6 Luxembourger open ended ureteral catheter. The distal ureter [...] and then over the wire a 4.8 Luxembourger, 22-30 cm Microvasive double J stent was [...] procedure well. She was transferred [facility] the [facility] and then back to PACU in [...] the plan. CC: Sue Win M.D. : [facility] Signed and Approved by: DR JORDI MAST 11/29/2021 08:56:00[facility]06-08-2022 NotePROCEDURE: XR KNEE RT 4V or > COMPARISON: None. HISTORY: Pain in right knee FINDINGS: BONES:No acute fracture or dislocation. Mild osteoarthritis with marginal osteophyte formation SOFT TISSUES:Negative. No visible soft tissue swelling. EFFUSION:None visible. OTHER: Negative. IMPRESSION: Mild osteoarthritis Electronically authenticated by: KODY GARRISON Date: 2021-10-03 07:59[facility] No data available for this section [facility] Evaluation + Plan note Future Appointments Appointment Date:01/27/2023 08:00:00 AM Scheduled Provider:Jordi MAST MD Location:[facility] Appointment Type:URO Office Visit [facility] Evaluation note* Diagnosis Vaginal discharge Leukorrhea, not specified as infective Women's annual routine gynecological examination documented in this encounter [facility] Work Phone: evaluation noteNo assessment information available [facility] Work Phone: Evaluation noteNo InformationNort [employer] Other History general Narrative - Reported* Type Description Date Medical History GERD Medical History Hypothyroidism Guanri Other History general Narrative - Reported* Type Description Date Medical History GERD Medical History Hypothyroidism Surgical History 1. LEFT knee arthros copy with partial medial meniscectomy 2. 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 Advance Directives and Living Will Power of Senior Underwriting Assistant Documents on File Type Date Recorded Patient Senior Designer/Art Director Expl anation ACP-Advance Directive ACP-Power of Senior Underwriting Assistant Advance Directive Response Recorded Date/ Time Advance [...] Care Teams (unrecognized sec tion and content) 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 [facility]. provides no warranty or guarantee of the accuracy or completeness of information in this document.
--- NOTE | 2023-12-02 08:10 | NM_ITS ---
Patient Name: KAROL MARCOS MR#: [id number] : 1970 Exam Date: 12/02/2023 Ordering Doctor: DR Neymar Win . RADIOLOGY REPORT PROCEDURE: NM JOYCE PERF SPECT REST STR COMPARISON: None. INDICATIONS: HYPERTENSION, CHEST PAIN TECHNIQUE: Exam Description: Stress/Rest one day protocol gated SPECT Rest Imagin.0 mCi Tc-99m Cardiolite IV on 12/02/2023 Stress Imaging 31.3 mCi Tc-99m Cardiolite IV on 12/02/2023 Exercise Protocol: 0.4 mg Lexiscan given IV Heart Rate (bpm): Rest: 93 Max: 150 PMHR: 90 Blood Pressure: Rest: 160/90 Max: 178/88 Exercise Time: Minutes: 4 Seconds: 34 Stage Reached: Stage: 2 Mets 4.6 Symptoms: Rest and peak stress ECG findings were normal and the exercise portion of the study was normal per attending physician Dr. Marin . For more details please see separate cardiac stress test report. FINDINGS: QUALITY OF STUDY: Excellent. PERFUSION DEFECT: None. LOCATION: N/A SIZE: N/A. SEVERITY: N/A. TYPE: N/A. WALL MOTION: Normal. LV SIZE: Normal. 54 mL. TID / TCD: None; 0.6 LVEF: Normal. Calculated EF 84%. SUMMARY: Myocardial perfusion imaging study is NORMAL. CONCLUSION: 1. Normal nuclear medicine myocardial perfusion scan. Dictated by: Tucker English M.D. on 12/03/2023 at 13:46 Approved by: Tucker English M.D. on 12/03/2023 at 13:51
--- NOTE | 2023-12-02 10:21 | PC.NURSE ---
Nursing Note Cardiac Stress Test Reviewed: Medication, allergies and patient history reviewed. Stress Test: [ x] Patient tolerated stress test well. [ ] Patient unable to tolerate walking on treadmill. Switched to Lexiscan stress test. [x ] No chest pain noted per patient [ ] Chest pain that resolved prior to leaving stress lab. [ ] No dyspnea noted. [ x] Dyspnea that resolved prior to leaving stress lab. [x ] Patient left stress lab asymptomatic and hemodynamically stable. [ ] Patient taken to the Emergency Room due to non-resolving symptoms following stress test. [x ] Patient achieved target heart rate. [ ] Patient unable to achieve target heart rate. [ ] Aminophylline administered as reversal agent to Lexiscan (Regadenoson). [ ] Nitro administered. Nursing Comments:
--- NOTE | 2023-12-02 19:03 | PM.STRESS ---
Stress Test Stress Test Requesting physician: Neymar Win Procedure: Exercise Cardiolite stress test General Information: Reason for Stress Test: Chest pain Cardiac History and Risk Factors: HTN, father has CAD s/p CABG Resting 12 - Lead Electrocardiogram: Normal sinus @ 92bpm. Normal ST-segments and T-waves. Stress Test: Protocol: Butch protocol was followed, with injection of Cardiolite once target heart rate was achieved. Exercise capacity: Poor exercise capacity. Total exercise time of 4 minutes 36 seconds reached Butch stage 1 at 1.7 MPH, 10% grade, & 4.6 METs. Blood pressure: Initial: 162/90, Maximum: 178/88 Rate & rhythm: Patient remained in sinus rhythm during the exercise and recovery portions of the study.? The maximum heart rate was 150, which was 90% of the maximum predicted heart rate 165. PVCs were noted. ST-segments & T-waves: No significant changes when compared to the baseline EKG. Patient response/symptoms: No reproducible symptoms to chief complaint. Patient voiced dyspnea. Interpretation: Normal exercise stress test without electrocardiographical evidence of ischemia. Asymptomatic of chief complaint. Cardiolite imaging interpretation will be reported separately. Clinical correlation required.?
== END 2023-12-02 07:59 | disposition home or self-care (01) ==
LOC: NM 07:58
PROVIDERS: PCP Family Medicine; Visit Provider Family Medicine
DX: R07.9 Chest pain, unspecified (principal); I10 Essential (primary) hypertension
CPT/HCPCS: 78452; 93017; A9500

== ENCOUNTER 2024-01-30 07:10 | Outpatient (OUT) | payer OTHER, SELFPAY ==
--- OUTSIDE RECORDS SUMMARY | 2024-01-30 07:14 | XMS_ITS | CCD ---
Author Organization [facility] Care Team Providers Care Rewrite Editor Name Role Phone Sue Win Primary Care Provider Sue Win Primary Care Physician [phone] MD Jordi Mast Attending Provider MD Sue Win Primary Care Provider [phone] YAIMA ., DR ROGERS Consulting Unavailable HOY [...] Attending Unavailable TIMMIS, DR GABRIEL Admitting Unavailable TROY, DR KODY Pappas Consulting Unavailable HOY ., [...] Unavailable YAIMA ., DR ROGERS Admitting Unavailable TROY, DR KODY Pappas Consulting Unavailable MANNIE, DR [...] Unavailable MD Sue Win Primary Care Provider [phone] MD Shubham Rodrigues Attending Provider [phone] Jordi MAST Attending Unavailable MANNIE, Jordi Mckeon [...] Medication Allergies] Propensity to adverse reactions (disorder) [facility] Repository Medications Current Medications Medication Drug Class(es) Dates Sig (Normalized) Sig (Original) acetaminophen 325 mg / HYDROcodone bitartrate 5 mg oral tablet (10 sources) Opioid Agonist Start: 12-31-2022 take 1 tablet by mouth every four hours as needed for pain HYDROcodone-Aceta minophen 5-325 MG 1 tablet as needed for pain Orally up to every 4 hrs for 5 days PB: [id number] Dec, Active Start: 11-29-2021 End: 12-13-2021 take [...] 11-16-2021 Episodic Other aftercare (1 source) Other shelter (current) drug therapy; Translations: [OTH JAIL CURRENT DRUG THERAPY] Onset: 11-16-2021 Episodic Other [...] stain.thin prep Doc (Cvx/Vag) (NOTE) Path Number: [id number] DIAGNOSIS Imaged ThinPrep Pap - Cervical (1 monolayer slide): Specimen Adequacy: Satisfactory for evaluation. -Endocervical/trans formation zone component is absent. Descriptive Diagnosis: Negative for intraepithelial lesion or malignancy. Cytotech Screener: EY Electronically Signed Out Margot Rand CT(ASCP) ey/05/28/2023 Source of Specimen: A: Imaged ThinPrep Pap - Cervical (1 monolayer slide) HPV Reflex?............ ..........HPV if Abnormal Clinical History Postmenopausal Z01.419 Routine addictions therapist exam without abnormal findings LMP: 01/23/2016 Processing Lab: [address] [id number] Interpretation performed at [address] [address] This Pap Test has been evaluated with the assistance of the hoohbePrep Pap Test Imaging System. The Pap smear is a screening test primarily for squamous epithelial lesions, which is subject to both false negative and false positive results. Your patient should be reminded to consult you immediately if she experiences any suspicious signs or symptoms, regardless of her Pap smear result. GYNECOLOGIC CYTOLOGY REPORT Patient Name: KAROL PLASCENCIA [facility] Rec: [id number] [facility] ANATOMIC PATHOLOGY [address] [place] [address]. [address] [facility] Ambulatory Visit Summaryon 1 Ambulatory Visit Summary KAROL PLASCENCIA :1970 Visit Date:01/27/2023 Ambulatory Visit Instructions Your Diagnosis Kidney stone Tests Performed Urnls Dip Stick Auto w/o Microscopy POC 88548 XR Abdomen 1 View -- Results Pending [...] ARREGUIN, Jordi Mckeon Where: [facility] Patient Educationon 01-28-20 Patient Education Nephrology Dietary [...] Spinach (cooked), rhubarb, beets, sweet potatoes, and Tongan chard. ? Peanuts. ? Potato chips, israeli fries, and baked potatoes with skin on. ? Nuts and nut products. ? Chocolate. ? If you regularly take a diuretic medicine, make sure to eat at least 1 or 2 servings of fruits or vegetables that are high in potassium each day. These include: ? Avocado. ? Banana. ? Norton, prune, carrot, or tomato juice. ? Baked [...] fish oil, or vitamin B6. ? Take shbl-pez-kogrdfl and prescription medicines only as told by your health care provider. These include supplements. What foods should I limit? Limit your in (more content not included)... Normal [facility] Urology Office/Clinic Noteon 01-27-2023 Urology Office/Clinic Note Chief Complaint Pt is here for 6 month w/ KUB HPI Staff 52 yo female here for 6 month f/u with KUB. Previous Dx: kidney stone. S/p ESWL 12/21/21, Cysto/stent placement 11/29/21, and Cysto 11/13/21. Litholink done 08/12/22. KUB done 01/23/23 at [facility]. Dysuria: denies Incomplete bladder emptying: [...] In [address] [place] [address]- Additional Instructions: w/KUB Patient Education Dietary Guidelines to Help Prevent Kidney Stones IRadha, personally scribed for Dr. Mast on 01/27/2023 08:33:07. . Documentation recorded by the scribe, Radha Townsend, accurately reflects the services(s) I performed and decisions made by me. Authenticated by Dr. Mast on 01/27/2023 08:49:28. Portions of this record may have been created with voice recognition artificial intelligence software, specifically RMI, Jackrabbit and or [employer]. Substitutions may have occurred due to the [...] mg T (more content not included)... Normal [facility] Comment on above: Result Comment: Elec tronically Signed By: Jordi MAST MD\.br\Date and Time Signed: 01/27/23 08:50 EDT\.br\Electronically Co-Signed By: Radha Townsend\.br\Date and Time Co-Signed: 01/27/23 08:33 EDT RAD - MISCon 01-24-2023 RAD - MISC [id number] 2C#1.00CD:127 Normal [facility] Alanine aminotransferase [En zymatic activity/volume] in Serum or PlasmaOrdered By: Shubham Rodrigues on 12-25-2022 ALT [Catalytic activity/Vol] 27 U/L 7-52 [facility] Albumin [Mass/volume] in Ser um or Plasma by Bromocresol green (BCG) dye binding methoOrdered By: Shubham Rodrigues on 12-25-2022 Albumin BCG dye [Mass/Vol] 3.9 g/dL 3.5-5.7 [facility] Alkaline phosphatase [Enzyma tic activity/volume] in Serum or PlasmaOrdered By: Shubham Rodrigues on 12-25-2022 ALP [Catalytic activity/Vol] 138 U/L 34-104 [facility] Aspartate aminotransferase [ Enzymatic activity/volume] in Serum or PlasmaOrdered By: Shubham Rodrigues on 12-25-2022 AST [Catalytic activity/Vol] 20 U/L 13-39 [facility] Basophils Auto (Bld) [#/Vol] Ordered By: Shubham Rodrigues on 12-25-2022 Basophils (Bld) [#/Vol] 0.1 10*3/uL 0.0-0.2 [facility] Basophils/100 WBC Auto (Bld) Ordered By: Shubham Rodrigues on 12-25-2022 Basophils/100 WBC (Bld) 0.8 % . [facility] Bilirubin.total [Mass/volume ] in Serum or PlasmaOrdered By: Shubham Rodrigues on 12-25-2022 Bilirubin [Mass/Vol] 0.4 mg/dL 0.3-1.0 [facility] CMP with reflex to A1Con Albumin [Mass/Vol] 3.9 g/dL Normal 3.5-5.7 [facility] Comment on above: Performed By: #### C BC, CMP wRFX A1C #### [facility] [address] [place] [address] Albumin/Globulin [Mass ratio] 1.4 {ratio} Normal [facility] Comment on above: Performed By: #### C BC, CMP wRFX A1C #### [facility] [address] [place] [address] ALP [Catalytic activity/Vol] 138 U/L High 34-104 [facility] Comment on above: Result Comment: PERF ORMED BY: [place] [address] PATHOLOGIST CLOTH MERCERIZING SUPERVISOR MULUGETA ANGLIN M.D. Performed By: #### C BC, CMP wRFX A1C #### [facility] [address] ALT [Catalytic activity/Vol] 27 U/L Normal 7-52 [facility] Comment on above: Performed By: #### C BC, CMP wRFX A1C #### [facility] [address] [place] [address] [place] Anion gap [Moles/Vol] 10.0 mmol/L Normal 6.0-15.[address] [facility] Comment on above: Performed By: #### C BC, CMP wRFX A1C #### [facility] [address] [place] [address] [place] AST [Catalytic activity/Vol] 20 U/L Normal 13-39 [facility] Comment on above: Performed By: #### C BC, CMP wRFX A1C #### [facility] [address] Bilirubin [Mass/Vol] 0.4 mg/dL Normal 0.3-1.0 [facility] Comment on above: Performed By: #### C BC, CMP wRFX A1C #### [facility] [address] Calcium [Mass/Vol] 9.1 mg/dL Normal 8.6-10.3 [facility] Comment on above: Performed By: #### C BC, CMP wRFX A1C #### [facility] [address] Chloride [Moles/Vol] 104 mmol/L Normal 98-107 [facility] Comment on above: Performed By: #### C BC, CMP wRFX A1C #### [facility] [address] CO2 [Moles/Vol] 30.2 mmol/L Normal 21.0-31.0 [facility] Comment on above: Performed By: #### C BC, CMP wRFX A1C #### [address] Creatinine [Mass/Vol] 0.69 mg/dL Normal 0.60-1.20 [facility] Comment on above: Performed By: #### C BC, CMP wRFX A1C #### [facility] [address] [place] [address] [place] GFR/1.73 sq M.predicted MDRD (S/P/Bld) [Vol rate/Area] mL/min/{1.73_m2} [facility] Comment on above: Performed By: #### C BC, CMP wRFX A1C #### [facility] [address] Globulin (S) [Mass/Vol] 2.8 g/dL Normal [facility] Comment on above: Performed By: #### C BC, CMP wRFX A1C #### [facility] [address] [place] [id number] [place] Glucose [Mass/Vol] 99 mg/dL Normal 70-100 [facility] Comment on above: Performed By: #### C BC, CMP wRFX A1C #### [facility] [address] [place] [address] [place] Potassium [Moles/Vol] 4.2 mmol/L Normal 3.5-5.1 [facility] Comment on above: Performed By: #### C BC, CMP wRFX A1C #### [facility] [address] [place] [address] [place] Protein [Mass/Vol] 6.7 g/dL Normal 6.4-8.9 [facility] Comment on above: Performed By: #### C BC, CMP wRFX A1C #### [facility] [address] [place] [address] [place] Sodium [Moles/Vol] 140 mmol/L Normal 136-145 [facility] Comment on above: Performed By: #### C BC, CMP wRFX A1C #### [facility] [address] [place] [address] [place] Urea nitrogen [Mass/Vol] 18 mg/dL Normal 7-25 [facility] Comment on above: Performed By: #### C BC, CMP wRFX A1C #### [facility] [address] [place] [id number] [place] Calcium [Mass/volume] in Ser um or PlasmaOrdered By: Shubham Rodrigues on 12-25-2022 Calcium [Mass/Vol] 9.1 mg/dL 8.6-10.3 [facility] Carbon dioxide, total [Moles /volume] in Serum or PlasmaOrdered By: Shubham Rodrigues on 12-25-2022 CO2 [Moles/Vol] 30.2 mmol/L 21.0-31.0 [facility] Chloride [Moles/volume] in S gerry or PlasmaOrdered By: Shubham Rodrigues on 12-25-2022 Chloride [Moles/Vol] 104 mmol/L 98-107 [facility] Complete Blood Count Auto Di ffon 12-25-2022 Basophils (Bld) [#/Vol] 0.1 10*3/uL Normal 0.0-0.2 [facility] Comment on above: Result Comment: PERF ORMED BY: [place] [address] PATHOLOGIST CLOTH MERCERIZING SUPERVISOR MULUGETA ANGLIN M.D. Performed By: #### C BC, CMP wRFX A1C #### [facility] [address] [place] [address] [place] Basophils/100 WBC (Bld) 0.8 % Normal . [facility] Comment on above: Performed By: #### C BC, CMP wRFX A1C #### [facility] [address] Eosinophils (Bld) [#/Vol] 0.2 10*3/uL Normal 0.0-0.45 [facility] Comment on above: Performed By: #### C BC, CMP wRFX A1C #### [place] [address] [place] Eosinophils/100 WBC (Bld) 3.0 % Normal . [facility] Comment on above: Performed By: #### C BC, CMP wRFX A1C #### [address] Erythrocyte distribution width (RBC) [Ratio] 14.4 % Normal 11.9-15.3 [facility] Comment on above: Performed By: #### C BC, CMP wRFX A1C #### [place] [address] [place] Hematocrit (Bld) [Volume fraction] 39.1 % Normal 34.0-46.4 [facility] Comment on above: Performed By: #### C BC, CMP wRFX A1C #### [facility] [address] [place] [address] Hemoglobin (Bld) [Mass/Vol] 13.0 g/dL Normal 11.8-15.4 [facility] Comment on above: Performed By: #### C BC, CMP wRFX A1C #### [facility] [address] [place] [address] [place] Lymphocytes (Bld) [#/Vol] 1.5 10*3/uL Normal 1.00-4.8 [facility] Comment on above: Performed By: #### C BC, CMP wRFX A1C #### [facility] [address] Lymphocytes/100 WBC (Bld) 22.8 % Normal . [facility] Comment on above: Performed By: #### C BC, CMP wRFX A1C #### [facility] [address] MCH (RBC) [Entitic mass] 28.9 pg Normal 24.7-34.3 [facility] Comment on above: Performed By: #### C BC, CMP wRFX A1C #### [address] MCV (RBC) [Entitic vol] 86.9 fL Normal 80-100 [facility] Comment on above: Performed By: #### C BC, CMP wRFX A1C #### [address] Mean Corpuscular HGB Conc 33.2 g/dL Normal 32.0-35.0 [facility] Comment on above: Performed By: #### C BC, CMP wRFX A1C #### [place] [address] [place] Monocytes (Bld) [#/Vol] 0.3 10*3/uL Normal 0.0-0.8 [facility] Comment on above: Performed By: #### C BC, CMP wRFX A1C #### [place] [address] [place] Monocytes/100 WBC (Bld) 4.8 % Normal . [facility] Comment on above: Performed By: #### C BC, CMP wRFX A1C #### [facility] [address] [place] [address] [place] Neutrophils (Bld) [#/Vol] 4.7 10*3/uL Normal 1.8-7.7 [facility] Comment on above: Performed By: #### C BC, CMP wRFX A1C #### [facility] [address] Neutrophils/100 WBC (Bld) 68.6 % Normal . [facility] Comment on above: Performed By: #### C BC, CMP wRFX A1C #### [facility] [address] NRBC% 0.1 /100{WBC} Normal 0-0.5 [facility] Comment on above: Performed By: #### C BC, CMP wRFX A1C #### [facility] [address] Platelet mean volume (Bld) [Entitic vol] 7.2 fL Normal 6.3-10.7 [facility] Comment on above: Performed By: #### C BC, CMP wRFX A1C #### [facility] [address] Platelets (Bld) [#/Vol] 334 10*3/uL Normal 150-450 [facility] Comment on above: Performed By: #### C BC, CMP wRFX A1C #### [facility] [address] [place] [address] RBC (Bld) [#/Vol] 4.50 10*6/uL Normal 3.60-5.00 [facility] Comment on above: Performed By: #### C BC, CMP wRFX A1C #### [facility] [address] WBC (Bld) [#/Vol] 6.8 10*3/uL Normal 3.8-11.6 [facility] Comment on above: Performed By: #### C BC, CMP wRFX A1C #### [address] Creatinine [Mass/volume] in Serum or PlasmaOrdered By: Shubham Rodrigues on 12-25-2022 Creatinine [Mass/Vol] 0.69 mg/dL 0.60-1.20 [facility] ECG 12 lead ECGon 12-25-2022 ECG 12 lead ECG [facility] [place] [address] Electrocardiograph Report Signed Patient: Karol Plascencia MR#: [id number] 160 : 1970 Acct:[id number] Age/Sex: 52 / F ADM Date: 12/25/22 Loc: Room: Type: [facility] Attending Dr: Shubham Rodrigues MD Ordering Provider: [...] By Tl Bryan DO 12/25 1134 Normal [facility] Eosinophils Auto (Bld) [#/Vo l]Ordered By: Shubham Rodrigues on 12-25-2022 Eosinophils (Bld) [#/Vol] 0.2 10*3/uL 0.0-0.45 [facility] Eosinophils/100 WBC Auto (Bl d)Ordered By: Shubham Rodrigues on 12-25-2022 Eosinophils/100 WBC (Bld) 3.0 % . [facility] Erythrocyte distribution wid th Auto (RBC) [Ratio]Ordered By: Shubham Rodrigues on 12-25-2022 Erythrocyte distribution width (RBC) [Ratio] 14.4 % 11.9-15.3 [facility] Globulin Calc (S) [Mass/Vol] Ordered By: Shubham Rodrigues on 12-25-2022 Globulin (S) [Mass/Vol] 2.8 g/dL [facility] Glucose [Mass/volume] in Ser um or PlasmaOrdered By: Shubham Rodrigues on 12-25-2022 Glucose [Mass/Vol] 99 mg/dL 70-100 [facility] Hematocrit Auto (Bld) [Volum e fraction]Ordered By: Shubham Rodrigues on 12-25-2022 Hematocrit (Bld) [Volume fraction] 39.1 % 34.0-46.4 [facility] Hemoglobin [Mass/volume] in BloodOrdered By: Shubham Rodrigues on 12-25-2022 Hemoglobin (Bld) [Mass/Vol] 13.0 g/dL 11.8-15.4 [facility] Leukocytes [#/volume] correc darren for nucleated erythrocytes in Blood by Automated counOrdered By: Shubham Rodrigues on 12-25-2022 WBC corrected for nucl RBC Auto (Bld) [#/Vol] 6.8 10*3/uL 3.8-11.6 [facility] Lymphocytes Auto (Bld) [#/Vo l]Ordered By: Shubham Rodrigues on 12-25-2022 Lymphocytes (Bld) [#/Vol] 1.5 10*3/uL 1.00-4.8 [facility] Lymphocytes/100 WBC Auto (Bl d)Ordered By: Shubham Rodrigues on 12-25-2022 Lymphocytes/100 WBC (Bld) 22.8 % . [facility] MCH Auto (RBC) [Entitic mass ]Ordered By: Shubham Rodrigues on 12-25-2022 MCH (RBC) [Entitic mass] 28.9 pg 24.7-34.3 [facility] MCHC Auto (RBC) [Mass/Vol]Or dered By: Shubham Rodrigues on 12-25-2022 MCHC (RBC) [Mass/Vol] 33.2 g/dL 32.0-35.0 [facility] MCV Auto (RBC) [Entitic vol] Ordered By: Shubham Rodrigues on 12-25-2022 MCV (RBC) [Entitic vol] 86.9 fL 80-100 [facility] Monocytes Auto (Bld) [#/Vol] Ordered By: Shubham Rodrigues on 12-25-2022 Monocytes (Bld) [#/Vol] 0.3 10*3/uL 0.0-0.8 [facility] Monocytes/100 WBC Auto (Bld) Ordered By: Shubham Rodrigues on 12-25-2022 Monocytes/100 WBC (Bld) 4.8 % . [facility] Neutrophils Auto (Bld) [#/Vo l]Ordered By: Shubham Rodrigues on 12-25-2022 Neutrophils (Bld) [#/Vol] 4.7 10*3/uL 1.8-7.7 [facility] Neutrophils/100 WBC Auto (Bl d)Ordered By: Shubham Rodrigues on 12-25-2022 Neutrophils/100 WBC (Bld) 68.6 % . [facility] No Panel InformationOrdered By: Shubham Rodrigues on 12-25-2022 Estimated GFR (CKD-EPI) > 60.0 mL/Min [facility] Creatinine Clearance (Chem N/A [facility] Nucleated erythrocytes [Pres ence] in Blood by Automated countOrdered By: Shubham Rodrigues on 12-25-2022 Nucleated RBC Auto Ql (Bld) 0.1 /100{WBC} 0-0.5 [facility] Platelet mean volume Auto (B ld) [Entitic vol]Ordered By: Shubham Rodrigues on 12-25-2022 Platelet mean volume (Bld) [Entitic vol] 7.2 fL 6.3-10.7 [facility] Platelets Auto (Bld) [#/Vol] Ordered By: Shubham Rodrigues on 12-25-2022 Platelets (Bld) [#/Vol] 334 10*3/uL 150-450 [facility] Potassium [Moles/volume] in Serum or PlasmaOrdered By: Shubham Rodrigues on 12-25-2022 Potassium [Moles/Vol] 4.2 mmol/L 3.5-5.1 [facility] Protein [Mass/volume] in Ser um or PlasmaOrdered By: Shubham Rodrigues on 12-25-2022 Protein [Mass/Vol] 6.7 g/dL 6.4-8.9 [facility] RBC Auto (Bld) [#/Vol]Ordere d By: Shubham Rodrigues on 12-25-2022 RBC (Bld) [#/Vol] 4.50 10*6/uL 3.60-5.00 [facility] Serum or plasma albumin/glob ulin mass ratioOrdered By: Shubham Rodrigues on 12-25-2022 Albumin/Globulin [Mass ratio] 1.4 {ratio} [facility] Serum or plasma anion gap de terminationOrdered By: Shubham Rodrigues on 12-25-2022 Anion gap [Moles/Vol] 10.0 mmol/L 6.0-15.[address] [facility] Sodium [Moles/volume] in Ser um or PlasmaOrdered By: Shubham Rodrigues on 12-25-2022 Sodium [Moles/Vol] 140 mmol/L 136-145 [facility] Urea nitrogen [Mass/volume] in Serum or PlasmaOrdered By: Shubham Rodrigues on 12-25-2022 Urea nitrogen [Mass/Vol] 18 mg/dL 7-25 [facility] WBC Auto (Bld) [#/Vol]Ordere d By: Shubham Rodrigues on 12-25-2022 WBC (Bld) [#/Vol] 6.8 10*3/uL 3.8-11.6 [facility] Lab Reportson 08-21-2022 Lab Reports [id number] 59#1.00CD:127 Normal [facility] Lab Reportson 08-14-2022 Lab Reports [id number] 16#1.00CD:127 Normal [facility] PTH INTACTon 08-13-2022 PTH, Intact 59 pg/mL Normal 15-65 [facility] Comment on above: Performed By: #### P THINT ####[facility] [id number] [place] [id number]. Mikaela Caldwell BUNon 08-12-2022 Urea nitrogen [Mass/Vol] 12.0 mg/dL Normal 7.0-18.0 [facility] Comment on above: Performed By: #### C A, K, CL, BUN, URIC, CO2, CREA, NA ####[facility] [address] [place], [place] [address]Gi. Mikaela Caldwell CALCIUMon 08-12-2022 Calcium [Mass/Vol] 9.0 mg/dL Normal 8.5-10.1 [facility] Comment on above: Performed By: #### C A, K, CL, BUN, URIC, CO2, CREA, NA ####[facility] [address] [place] [address]Dr. Mikaela Caldwell CHLORIDEon 08-12-2022 Chloride [Moles/Vol] 107 mmol/L Normal 98-107 [facility] Comment on above: Performed By: #### C A, K, CL, BUN, URIC, CO2, CREA, NA ####[facility] [address] [place] [address]Dr. Mikaela Caldwell CO2on 08-12-2022 CO2 [Moles/Vol] 29.7 mmol/L Normal 21.0-32.0 [facility] Comment on above: Performed By: #### C A, K, CL, BUN, URIC, CO2, CREA, NA ####[facility] [id number] [place], [place] [address]Dr. Mikaela Caldwell CREATININEon 08-12-2022 Creatinine [Mass/Vol] 0.85 mg/dL Normal 0.55-1.02 [facility] Comment on above: Performed By: #### C A, K, CL, BUN, URIC, CO2, CREA, NA ####[facility] [address] [place] [address]. [facility] EGFR-AF QATARI >60 Normal >=60 [facility] Comment on above: Performed By: #### C A, K, CL, BUN, URIC, CO2, CREA, NA ####[facility] [address] [place] [address]Dr. Mikaela [facility] EGFR-NON AF QATARI >60 Normal >=60 [facility] Comment on above: Performed By: #### C A, K, CL, BUN, URIC, CO2, CREA, NA ####[facility] [address] [place] [address]Dr. Mikaela Caldwell NAon 08-12-2022 Sodium [Moles/Vol] 142 mmol/L Normal 136-145 [facility] Comment on above: Performed By: #### C A, K, CL, BUN, URIC, CO2, CREA, NA ####[facility] [address] [place], [place] [address]Dl. Mikaela Caldwell POTASSIUMon 08-12-2022 Potassium [Moles/Vol] 3.9 mmol/L Normal 3.5-5.1 [facility] Comment on above: Performed By: #### C A, K, CL, BUN, URIC, CO2, CREA, NA ####[facility] [address] [place], [place] [address]Kx. Mikaela Caldwell URIC ACID SERUMon 08-12-2022 Urate [Mass/Vol] 3.8 mg/dL Normal 2.6-6.0 [facility] Comment on above: Performed By: #### C A, K, CL, BUN, URIC, CO2, CREA, NA ####[facility] [address] [place], [place] [address]Aj. Mikaela Caldwell Formson 07-24-2022 Forms [id number] 217#1.00CD:127 Normal [facility] Patient Educationon 07-23-19 23 Patient Education [...] these instructions at home: Medicines ? Take hufv-cix-jdnbkqp and prescription medicines only as told by [...] 09/30/2008 Document Revised: 08/31/2019 Document Reviewed: 08/31/2019 [employer] Patient Education ? 2019 [employer] [facility]2022 [facility] [id number] 02#1.00CD:127 [facility] [facility]Clinic Noteon 07-22-2022 Urology Office/Clinic Note [...] 01/22/[address] [address]- Additional Instructions: KUB Patient Education Kidney Stones, [id number] Charisma Carpenter , personally scribed for Dr. [...] Protein Urine Dipstick: Negative (07/22/22 09:47:00) Specific [place] Urine Dipstick: <=1.005 (07/22/22 09:47:00) Urine Appearance Urine Dipstick: Clear (07/22/22 09:47:00) Urine Color Urine Dipstick: Light yellow (07/22/22 09:47:00) Urobilinogen Urine Dipstick: Normal 0.2-1 EU/dl (07/22/22 09:47:00) pH Urine Dipstick: 5.5 (07/22/22 09:47:00) Diagnostic (more content not included)... Normal [facility] Comment on above: Result Comment: Elec [...] ZENAIDA ENGLISH Date: 2022-07-18 09:03 Normal [facility] Provider Letteron 05-31-2022 Provider Letter May 31, 2022 KAROL PLASCENCIA [address] [place] [address] KAROL PLASCENCIA 1970 Dear Karol, We have [...] prompt attention to this matter. Please call [phone] Sincerely, [facility] [address] [place] [address] x 1 Normal [facility] US THYROIDon 05-15-2022 US THYROID EXAMINATION: [...] IMPRESSION: Bilateral stable thyroid nodules TI-RADS: [employer] TI-RADS committee's white paper recommendations for thyroid lesions classified as TR4 (moderately suspicious) are listed below: > 1.0 cm. Follow-up ultrasound in 1, 2, 3, and 5 years. > 1.5 cm. FNA. J. Am Ellen Radiol 2017;14:[id number]. Electronically authenticated by: KODY GARRISON Date: 2022-05-15 11:41 Normal [facility] MG MAMM SCREEN 3D ANN-MARIE CADon 03-27-2022 MG MAMM SCREEN 3D ANN-MARIE CAD Patient: KAROL PLASCENCIA Exam Date: 03/27/2022 : 1970 Gender:F Ordering : DR SUE WIN . Admission #: [id number] Family : Order #: [id number] CLICK HERE TO VIEW EXAM RADIOLOGY REPORT [...] prostate cancer at age 67. LOCATION: [facility] BREAST COMPOSITION: Heterogeneously dense,which may obscure small [...] M.D. on 03/27/2022 at 15:33 Normal [facility] Ammonium urate crystals dete ction in stone by infrared spectroscopyOrdered By: Jordi Mast on 12-21-2021 Ammonium urate crystals Infrared spectroscopy Ql (Stone) N/A [facility] Calcium bilirubinate measure mentOrdered By: Jordi Mast on 12-21-2021 Calcium bilirubinate (Stone) [Mass fraction] N/A [facility] Calcium carbonate measuremen tOrdered By: Jordi Mast on 12-21-2021 Calcium carbonate (Stone) [Mass fraction] N/A [facility] Calcium hydrogen phosphate d ihydrate/Total in StoneOrdered By: Jordi Mast on 12-21-2021 Calcium hydrogen phosphate dihydrate (Stone) [Mass fraction] N/A [facility] Calcium oxalate dihydrate cr ystals detection in stone by infrared spectroscopyOrdered By: Jordi Mast on 12-21-2021 Calcium oxalate dihydrate crystals Infrared spectroscopy Ql (Stone) 20 % . [facility] Calcium oxalate monohydrate/ Total in StoneOrdered By: Jordi Mast on 12-21-2021 Calcium oxalate monohydrate (Stone) [Mass fraction] 80 % . [facility] Calcium phosphate measuremen tOrdered By: Jordi Mast on 12-21-2021 Calcium phosphate (Stone) [Mass fraction] N/A [facility] Calculus analysis interpreta tion in stoneOrdered By: Jordi Mast on 12-21-2021 Calculus analysis [Interp] N/A [facility] Calculus analysis [Interp] See comment . [facility] Comment on above: Calculus received in liquid. Wet calculi must be dried before analysis, which delays reporting of results. Leaving calculi in liquid (such as water, saline, blood, urine) may lead to changes in composition. Physician questions regarding Calculi Analysis contact Mtime at: [phone]. Calculi report will follow via computer, mail or manager speech delivery. Calculus analysis with calcu guera photography interpretation in stoneOrdered By: Jordi Mast on 12-21-2021 Calculus analysis with calculus photography [Interp] See comment . [facility] Comment on above: Photograph will foll ow under a separate cover Cellular material measuremen t in stone by estimated (mass/mass)Ordered By: Jordi Mast on 12-21-2021 Cellular material Est (Stone) [Mass/Mass] N/A [facility] Cholesterol/Total in StoneOr dered By: Jordi Mast on 12-21-2021 Cholesterol (Stone) [Mass fraction] N/A [facility] Composition of stoneOrdered By: Jordi Mast on 12-21-2021 Composition Nom (Stone) See comment . [facility] Comment on above: Percentage (Represen ts the % composition) Cystine measurementOrdered B y: Jordi Mast on 12-21-2021 Cystine (Unsp spec) [Moles/Vol] N/A [facility] Determination of color of ca lculusOrdered By: Jordi Mast on 12-21-2021 Color (Stone) Brown . [facility] Hydroxyapatite [Energy Diffe rence] in 24 hour UrineOrdered By: Jordi Mast on 12-21-2021 Hydroxyapatite (24H U) [Energy diff] N/A [facility] Measurement of proportion of calculus composed of dried blood (mass/mass)Ordered By: oJrdi Mast on 12-21-2021 Blood.dried (Stone) [Mass fraction] N/A [facility] Newberyite/Total in StoneOrd ered By: Jordi Mast on 12-21-2021 Newberyite (Stone) [Mass fraction] N/A [facility] No Panel InformationOrdered By: Jordi Mast on 12-21-2021 Stone 2,8 Dihydroxyadenine N/A [facility] Stone Analysis Disclaimer See comment . [facility] Comment on above: This test was develo ped and its performance characteristics determined by Mtime. It has not been cleared or approved by the Food and Drug Administration. Performed at: [facility] Stone Analysis [address] [place] [address] [place] [id number] Bladder Changer: Jayson Santos PhD, Phone: [phone] Stone Bilirubinate N/A [facility] Stone Calcium Palmitate N/A [facility] Stone Calcium Stearate N/A Fi relaPending sale to [facility] Stone Carbonate Apatite N/A [facility] Stone Drug or Metabolite N/A [facility] Stone Other Constituent N/A [facility] Stone Xanthine N/A [facility] Size [Entitic volume] of Sto neOrdered By: Jordi Mast on 12-21-2021 Size (Stone) [Entitic vol] 5x3 mm . [facility] Comment on above: Multiple pieces rece ived. Dimensions of the largest piece reported. Sodium urate crystals detect ion in stone by infrared spectroscopyOrdered By: Jordi Mast on 12-21-2021 Sodium urate crystals Infrared spectroscopy Ql (Stone) N/A [facility] Specimen source subject [Typ e]Ordered By: Jordi Mast on 12-21-2021 Specimen source subject Nom See comment . [facility] Comment on above: Left Ureter Triamterene measurement in c alculusOrdered By: Jordi Mast on 12-21-2021 Triamterene (Stone) [Mass fraction] N/A [facility] Triple phosphate/Total in St oneOrdered By: Jordi Mast on 12-21-2021 Triple phosphate (Stone) [Mass fraction] N/A [facility] Uric acid dihydrate crystals detection in stone by infrared spectroscopyOrdered By: Jordi Mast on 12-21-2021 Urate dihydrate crystals Infrared spectroscopy Ql (Stone) N/A [facility] COVID-19 Positive/NegativeOr dered By: Jordi Mast on 12-19-2021 SARS-CoV-2 (COVID-19) N gene ISABELLA+probe Ql (Resp) Negative Negative [facility] Comment on above: Testing for SARS-CoV -2 by RT-PCR This test was developed and its performance characteristics determined by [employer] and validated at the [facility]. This test has not been [...] (PPP) [Time] 40.1 s 25.1-36.[address] [facility] Basophils Auto (Bld) [#/Vol] Ordered By: Jordi Mast on 12-13-2021 Basophils (Bld) [#/Vol] 0.1 10*3/uL 0.0-0.2 [facility] Basophils/100 WBC Auto (Bld) Ordered By: Jordi Mast on 12-13-2021 Basophils/100 WBC (Bld) 0.8 % . [facility] Blood hemoglobin measurement (mass/volume)Ordered By: Jordi Mast on 12-13-2021 Hemoglobin (Bld) [Mass/Vol] 12.8 g/dL 11.8-15.4 [facility] Blood leukocytes automated c ount (number/volume)Ordered By: Jordi Mast on 12-13-2021 WBC (Bld) [#/Vol] 6.9 10*3/uL 4.5-11.0 [facility] Creatinine and Glomerular fi ltration rate.predicted panel (S/P/Bld)Ordered By: Jordi Mast on 12-13-2021 Creatinine [Mass/Vol] 0.76 mg/dL 0.44-1.03 [facility] Eosinophils Auto (Bld) [#/Vo l]Ordered By: Jordi Mast on 12-13-2021 Eosinophils (Bld) [#/Vol] 0.3 10*3/uL 0.0-0.45 [facility] Eosinophils/100 WBC Auto (Bl d)Ordered By: Jordi Mast on 12-13-2021 Eosinophils/100 WBC (Bld) 4.9 % . [facility] Erythrocyte distribution wid th Auto (RBC) [Ratio]Ordered By: Jorid Mast on 12-13-2021 Erythrocyte distribution width (RBC) [Ratio] 14.0 % 11.9-15.3 [facility] Estimated glomerular filtrat ion rate (GFR) non- AmericanOrdered By: Jordi Mast on 12-13-2021 GFR/1.73 sq M.predicted among non-blacks MDRD (S/P/Bld) [Vol rate/Area] > 60 mL/Min [facility] Hematocrit Auto (Bld) [Volum e fraction]Ordered By: Jordi Mast on 12-13-2021 Hematocrit (Bld) [Volume fraction] 39.2 % 34.0-46.4 [facility] Laboratory - CoagulationOrde red By: Jordi Mast on 12-13-2021 PT Coag (PPP) [Time] 11.9 s 9.0-12.9 [facility] Laboratory - Hematology and Cell countsOrdered By: Jordi Mast on 12-13-2021 Nucleated RBC/100 WBC (Bld) [Ratio] 0.1 % 0-0.5 [facility] Lymphocytes Auto (Bld) [#/Vo l]Ordered By: Jordi Mast on 12-13-2021 Lymphocytes (Bld) [#/Vol] 2.0 10*3/uL 1.00-4.8 [facility] Lymphocytes/100 WBC Auto (Bl d)Ordered By: Jordi Mast on 12-13-2021 Lymphocytes/100 WBC (Bld) 28.9 % . [facility] MCH Auto (RBC) [Entitic mass ]Ordered By: Jordi Mast on 12-13-2021 MCH (RBC) [Entitic mass] 28.8 pg 24.7-34.3 [facility] MCHC Auto (RBC) [Mass/Vol]Or dered By: Jordi Mast on 12-13-2021 MCHC (RBC) [Mass/Vol] 32.6 g/dL 32.0-35.0 [facility] MCV Auto (RBC) [Entitic vol] Ordered By: Jordi Mast on 12-13-2021 MCV (RBC) [Entitic vol] 88.1 fL 80-100 [facility] Monocytes Auto (Bld) [#/Vol] Ordered By: Jordi Mast on 12-13-2021 Monocytes (Bld) [#/Vol] 0.4 10*3/uL 0.0-0.8 [facility] Monocytes/100 WBC Auto (Bld) Ordered By: Jordi Mast on 12-13-2021 Monocytes/100 WBC (Bld) 6.5 % . [facility] Neutrophils Auto (Bld) [#/Vo l]Ordered By: Jordi Mast on 12-13-2021 Neutrophils (Bld) [#/Vol] 4.1 10*3/uL 1.8-7.7 [facility] Neutrophils/100 WBC Auto (Bl d)Ordered By: Jordi Mast on 12-13-2021 Neutrophils/100 WBC (Bld) 58.9 % . [facility] No Panel InformationOrdered By: Jordi Mast on 12-13-2021 Estimated GFR () > 60 mL/Min [facility] Comment on above: GFR estimated refere nce range: According to KDOQI guidelines, <60 ml/min/1.73m2 is sufficient to diagnose a patient with chronic kidney disease. Pharmacy Creatinine Clearance (Chem N/A [facility] Platelet mean volume Auto (B ld) [Entitic vol]Ordered By: Jordi Mast on 12-13-2021 Platelet mean volume (Bld) [Entitic vol] 7.5 fL 6.3-10.7 [facility] Platelet poor plasma interna tional normalized ratio (INR) by coagulation assay (relatOrdered By: Jordi Mast on 12-13-2021 INR Coag (PPP) [Relative time] 1.1 {INR} [facility] Comment on above: INR Therapeutic [...] 12-13-2021 Platelets (Bld) [#/Vol] 345 10*3/uL 150-450 [facility] RBC Auto (Bld) [#/Vol]Ordere d By: Jordi Mast on 12-13-2021 RBC (Bld) [#/Vol] 4.45 10*6/uL 3.60-5.00 [facility] Serum or plasma calcium cielo urement (mass/volume)Ordered By: Jordi Mast on 12-13-2021 Calcium [Mass/Vol] 9.2 mg/dL 8.2-10.2 [facility] Serum or plasma chloride ankita surement (moles/volume)Ordered By: oJrdi Mast on 12-13-2021 Chloride [Moles/Vol] 102 mmol/L 95-114 [facility] Serum or plasma glucose cielo urement (mass/volume)Ordered By: Jordi Mast on 12-13-2021 Glucose [Mass/Vol] 90 mg/dL 70-100 [facility] Comment on above: ADA recommended refe rence range Random Glucose Reference Range is dependent on time and content of last meal. Glucose of more than 200 mg/dL in a nonstressed, ambulatory subject supports the diagnosis of Diabetes Mellitus. Serum or plasma potassium me asurement (moles/volume)Ordered By: Jordi Mast on 12-13-2021 Potassium [Moles/Vol] 3.6 mmol/L 3.5-5.1 [facility] Serum or plasma sodium measu rement (moles/volume)Ordered By: Jordi Mast on 12-13-2021 Sodium [Moles/Vol] 139 mmol/L 136-146 [facility] Serum or plasma total carbon dioxide measurement (moles/volume)Ordered By: Jordi Mast on 12-13-2021 CO2 [Moles/Vol] 27.4 mmol/L 22.0-30.0 [facility] Serum or plasma urea nitroge n measurement (mass/volume)Ordered By: Jordi Mast on 12-13-2021 Urea nitrogen [Mass/Vol] 13 mg/dL 9-23 [facility] MRI KNEE RT WO CONon [...] by: ZENAIDA ENGLISH Date: 2021-12-12 17:04 Normal [facility] XR KUB 1 VIEWon 12-10-2021 XR [...] ZENAIDA ENGLISH Date: 2021-12-10 07:56 Normal [facility] COVID-19 SOFIAOrdered By: Jeison Mast on 11-27-2021 SARS-CoV+SARS-CoV-2 (COVID-19) Ag IA.rapid Ql (Resp) Negative Negative [facility] Comment on above: This is a duplicate Mony SARS Antigen (MILES) result to be used for statistical tracking purpose only. No Panel InformationOrdered By: Jordi Mast on 11-27-2021 SARS Antigen (LFIA) [facility] XR KUB 1 VIEWon 07-26-2022 XR KUB [...] by: ZENAIDA ENGLISH Date: 2021-11-20 18:35 Normal [facility] CULTURE URINEon 11-15-2021 CULTURE URINE Isolate [...] F Trimethoprim/Sulfam ethoxazole <=20 S F Normal [facility] Comment on above: Performed By: #### C VDTBH #### [facility] Laboratory [address] [address] [address] Mikaela Caldwell CARDIAC EDGARDO 3-6on 2 CK [Catalytic activity/Vol] 54 U/L Normal 26-192 [facility] Comment on above: Performed By: #### C VDTBH #### [facility] [address] [address] [address] Mikaela Caldwell CK.MB [Mass/Vol] 2.05 ng/mL Normal <=3.60 [facility] Comment on above: Performed By: #### C VDTBH #### [facility] [address] [address] [address] Mikaela Caldwell HSTROP 6.5 pg/mL Normal 4.0-51.3 [facility] Comment on above: Result Comment: CUT- OFF POINTS HAVE BEEN ESTABLISHED BASED ON THE FOURTH UNIVERSAL DEFINITIONS OF MYOCARDIAL INFARCTION. THE UPPER REFERENCE LIMIT (URL) OF TROPONIN, DEFINED THE 99TH PERCENTILE OF cTnI DISTRIBUTION IN A REFERENCE POPULATION, HAS BEEN CONFIRMED THE DECISION THRESHOLD FOR VA DIAGNOSIS. Performed By: #### C VDTBH #### [facility] [address] [address] [address] Mikaela Caldwell CK [Catalytic activity/Vol] 63 U/L Normal 26-192 [facility] Comment on above: Performed By: #### C MREP #### [facility] [address] [address] [address] Mikaela Caldwell CK.MB [Mass/Vol] 2.28 ng/mL Normal <=3.60 [facility] Comment on above: Performed By: #### C MREP #### [facility] [address] [address] [address] Mikaela Caldwell HSTROP 5.1 pg/mL Normal 4.0-51.3 [facility] Comment on above: Result Comment: CUT- OFF POINTS HAVE BEEN ESTABLISHED BASED ON THE FOURTH UNIVERSAL DEFINITIONS OF MYOCARDIAL INFARCTION. THE UPPER REFERENCE LIMIT (URL) OF TROPONIN, DEFINED THE 99TH PERCENTILE OF cTnI DISTRIBUTION IN A REFERENCE POPULATION, HAS BEEN CONFIRMED THE DECISION THRESHOLD FOR VA DIAGNOSIS. Performed By: #### C MREP #### [facility] [address] [address] [address] Mikaela Caldwell CARDIAC EDGARDO ADMITon 022 CK [Catalytic activity/Vol] 77 U/L Normal 26-192 [facility] Comment on above: Performed By: #### C MADM, LIPA, CMP #### [facility] Laboratory [address] [address] [address] Mikaela Caldwell CK.MB [Mass/Vol] 2.40 ng/mL Normal <=3.60 [facility] Comment on above: Performed By: #### C MADM, LIPA, CMP #### [facility] Laboratory [address] [address] [address] Mikaela Caldwell HSTROP 5.8 pg/mL Normal 4.0-51.3 [facility] Comment on above: Result Comment: CUT- OFF POINTS HAVE BEEN ESTABLISHED BASED ON THE FOURTH UNIVERSAL DEFINITIONS OF MYOCARDIAL INFARCTION. THE UPPER REFERENCE LIMIT (URL) OF TROPONIN, DEFINED THE 99TH PERCENTILE OF cTnI DISTRIBUTION IN A REFERENCE POPULATION, HAS BEEN CONFIRMED THE DECISION THRESHOLD FOR VA DIAGNOSIS. Performed By: #### C MADM, LIPA, CMP #### [facility] Laboratory [address] [place] [address] Dr. Mikaela Caldwell JOYCE 29 ng/mL Normal 9-82 [facility] Comment on above: Performed By: #### C MADM, LIPA, CMP #### [facility] [address] [place] [address] Dr. Mikaela Caldwell CBC AUTO DIFFon 11-13-2021 BASO # 0.1 103/ul Normal 0.0-0.1 [facility] Comment on above: Performed By: #### C BC #### [facility] [address] [place] [address] Dr. Mikaela Caldwell Basophils/100 WBC (Bld) 0.5 % Normal 0.2-2.0 [facility] Comment on above: Performed By: #### C BC #### [facility] [address] [place] [address] Dr. Mikaela Caldwell EO # 0.3 103/ul Normal 0.0-0.7 [facility] Comment on above: Performed By: #### C BC #### [facility] [address] [address] [address] Mikaela Caldwell Eosinophils/100 WBC (Bld) 2.1 % Normal 0.9-7.0 [facility] Comment on above: Performed By: #### C BC #### [facility] [address] [place] [address] Dr. Mikaela Caldwell Erythrocyte distribution width (RBC) [Ratio] 13.2 % Normal 11.0-15.0 [facility] Comment on above: Performed By: #### C BC #### [facility] [address] [place] [address] Dr. Mikaela Caldwell Hematocrit (Bld) [Volume fraction] 40.9 % Normal 36.0-48.0 [facility] Comment on above: Performed By: #### C BC #### [facility] [address] [place] [address] Dr. Mikaela Caldwell Hemoglobin (Bld) [Mass/Vol] 13.1 g/dL Normal 12.0-16.0 [facility] Comment on above: Performed By: #### C BC #### [facility] [address] [place] [address] Dr. Mikaela Caldwell IG # 0.07 10e3/ul Critically high 0.00-0.03 [facility] Comment on above: Performed By: #### C BC #### [facility] [address] [place] [address] Dr. Mikaela Caldwell IG % 0.5 % Normal 0.0-0.5 [facility] Comment on above: Performed By: #### C BC #### [facility] [address] [place] [address] Dr. Mikaela Caldwell LYMPH # 1.8 103/ul Normal 1.2-3.8 [facility] Comment on above: Performed By: #### C BC #### [facility] [address] [place] [address] Dr. Mikaela Caldwell Lymphocytes/100 WBC (Bld) 12.5 % Critically low 20.5-60.0 [facility] Comment on above: Performed By: #### C BC #### [facility] [address] [place] [address] Dr. Mikaela Caldwell MANUAL DIFF REQ NO Normal [facility] Comment on above: Performed By: #### C BC #### [facility] [address] [place] [address] Dr. Mikaela Caldwell MCH (RBC) [Entitic mass] 29.2 pg Normal 26.7-34.0 [facility] Comment on above: Performed By: #### C BC #### [facility] [address] [address] [address] Mikaela Caldwell MCHC (RBC) [Mass/Vol] 32.0 g/dL Normal 29.9-35.2 [facility] Comment on above: Performed By: #### C BC #### [facility] [address] [address] [address] Mikaela Caldwell MCV (RBC) [Entitic vol] 91.1 fL Normal 81.0-99.0 [facility] Comment on above: Performed By: #### C BC #### [facility] [address] [address] [address] Mikaela Caldwell MONO # 0.7 103/ul Normal 0.3-0.8 [facility] Comment on above: Performed By: #### C BC #### [facility] [address] [place] [address] Dr. Mikaela Caldwell Monocytes/100 WBC (Bld) 5.1 % Normal 1.7-12.0 [facility] Comment on above: Performed By: #### C BC #### [facility] [address] [address] [address] Mikaela Caldwell NEUT # 11.1 103/ul Critically high 1.4-6.5 [facility] Comment on above: Performed By: #### C BC #### [facility] [address] [place] [address] Dr. Mikaela Caldwell Neutrophils/100 WBC (Bld) 79.3 % Critically high 43.0-75.0 [facility] Comment on above: Performed By: #### C BC #### [facility] [address] [place] [address] Dr. Mikaela Caldwell Platelet mean volume (Bld) [Entitic vol] 9.2 fL Critically low 9.5-13.5 [facility] Comment on above: Performed By: #### C BC #### [facility] [address] [place] [address] Dr. Mikaela Caldwell PLT 420 103/ul Normal 150-450 [facility] Comment on above: Performed By: #### C BC #### [facility] [address] [place], [place] [address] Dr. Mikaela Caldwell RBC 4.49 106/ul Normal 4.20-5.40 [facility] Comment on above: Performed By: #### C BC #### [facility] [address] [place], [place] [address] Dr. Mikaela Caldwell WBC 14.0 103/ul Critically high 4.0-11.0 [facility] Comment on above: Performed By: #### C BC #### [facility] [address] [place], [place] [address] ABD/PELVIS WO CONon [...] GEORGE LLANES Date: 2021-11-13 02:57 Normal [facility] SARS-CoV-2 (COVID-19) RNA ISABELLA+probe Ql (Unsp spec) Not detected Normal NOT DETECTED The [facility] Comment on above: Result Comment: When diagnostic [...] for this test is supported by the [place] of Health and Human Service's declaration that [...] used). Performed By: #### C VDTB #### [facility] [address] [place] [address] Dr. Mikaela Caldwell ER URINE PROFILEon 2 Bilirubin Ql (U) Negative Normal NEGATIVE [facility] Comment on above: Performed By: #### AUBREE ROGERS #### [facility] [address] [place] [address] Dr. Mikaela Caldwell Clarity (U) CLEAR Normal CLEAR [facility] Comment on above: Performed By: #### KENDELL ROGERSRO #### [facility] [address] [place] [address] Dr. Mikaela Caldwell Color (U) LT. YELLOW Normal YELLOW [facility] Comment on above: Performed By: #### AUBREE ROGERS #### [facility] [address] [place] [address] Dr. Mikaela Caldwell ERUAHD A micrscopic examination will be performed if indicated. Normal [facility] Comment on above: Performed By: #### KENDELL ROGERSRO #### [facility] [address] [place] [address] Dr. Mikaela Caldwell Glucose Ql (U) Negative Normal NEGATIVE [facility] Comment on above: Performed By: #### Jiym ROSAS UMICRO #### [facility] [address] [address] [address] Mikaela Caldwell Hemoglobin Ql (U) TRACE-INTACT Abnormal NEGATIVE [facility] Comment on above: Performed By: #### E RALPH, UMICRO #### [facility] [address] [address] [address] Mikaela Caldwell Ketones Ql (U) Negative Normal NEGATIVE [facility] Comment on above: Performed By: #### Jimy ROSAS UMICRO #### [facility] [address] [place] [address] Dr. Mikaela Caldwell LEUKOCYTES TRACE Abnormal NEGATIVE [facility] Comment on above: Performed By: #### Jimy ROSAS UMICRO #### [facility] [address] [place] [address] Dr. Mikaela Caldwell Nitrite Ql (U) Positive Abnormal NEGATIVE [facility] Comment on above: Performed By: #### Jimy ROSAS UMICRO #### [facility] [address] [place] [address] Dr. Mikaela Caldwell pH (U) 6.5 [pH] Normal 5-9 [facility] Comment on above: Performed By: #### Jimy ROSAS UMICRO #### [facility] [address] [place] [address] Dr. Mikaela Caldwell SPEC GRAVITY 1.020 Normal 1.005-<=1.[address] [facility] Comment on above: Performed By: #### Jimy ROSAS UMICRO #### [facility] [address] [place] [address] Dr. Mikaela Caldwell UA PROTEIN Negative Normal NEGATIVE/ TRACE [facility] Comment on above: Performed By: #### Jimy ROSAS UMICRO #### [facility] [address] [place] [address] Dr. Mikaela Caldwell UR MICRO IND INDICATED Normal [facility] Comment on above: Performed By: #### Jimy ROSAS UMICRO #### [facility] [address] [address] [address] Mikaela Caldwell Urobilinogen Qn (U) 0.2 {Lisa'U}/dL Normal 0.2 - 1. 0 [facility] Comment on above: Performed By: #### E AUBREE ROSAS #### [facility] [address] [address] [address] Mikaela Caldwell LACTATE/LACTIC ACIDon 2021 Lactate [Moles/Vol] 1.2 mmol/L Normal 0.4-1.9 [facility] Comment on above: Performed By: #### L ACT ####[facility] [id number] [address]Dr. Mikaela Caldwell LIPASEon 11-13-2021 Lipase [Catalytic activity/Vol] 97.0 U/L Normal 73.0-393.0 [facility] Comment on above: Performed By: #### C ANIL LIPA, CMP #### [facility] [address] [address] [address] Mikaela Caldwell PROF 14(COMP METB)on 022 Albumin [Mass/Vol] 3.5 g/dL Normal 3.4-5.0 [facility] Comment on above: Performed By: #### C CANDELARIAM LIPA, CMP #### [facility] [address] [address] [address] Mikaela Caldwell Albumin/Globulin [Mass ratio] 0.9 {ratio} Normal [facility] Comment on above: Performed By: #### C MADM, LIPA, CMP #### [facility] [address] [place] [address] Dr. Mikaela Caldwell ALP [Catalytic activity/Vol] 161 U/L Critically high 46-116 [facility] Comment on above: Performed By: #### C MADM, LIPA, CMP #### [facility] [address] [address] [address] Mikaela Caldwell ALT [Catalytic activity/Vol] 30 U/L Normal 14-59 [facility] Comment on above: Performed By: #### C MADM, LIPA, CMP #### [facility] [address] [address] [address] Mikaela Caldwell Anion gap [Moles/Vol] 10.4 mmol/L Normal [facility] Comment on above: Performed By: #### C MADM, LIPA, CMP #### [facility] [address] [address] [address] Mikaela Caldwell AST [Catalytic activity/Vol] 17 U/L Normal 15-37 [facility] Comment on above: Performed By: #### C MADM, LIPA, CMP #### [facility] [address] [address] [address] Mikaela Caldwell Bilirubin [Mass/Vol] 0.3 mg/dL Normal 0.2-1.0 [facility] Comment on above: Performed By: #### C MADM, LIPA, CMP #### [facility] [address] [address] [address] Mikaela Caldwell Calcium [Mass/Vol] 8.8 mg/dL Normal 8.5-10.1 [facility] Comment on above: Performed By: #### C MADM, LIPA, CMP #### [facility] [address] [address] [address] Mikaela Caldwell Chloride [Moles/Vol] 106 mmol/L Normal 98-107 [facility] Comment on above: Performed By: #### C MADM, LIPA, CMP #### [facility] [address] [address] [address] Mikaela Caldwell CO2 [Moles/Vol] 30.1 mmol/L Normal 21.0-32.0 [facility] Comment on above: Performed By: #### C MADM, LIPA, CMP #### [facility] [address] [address] [address] Mikaela Caldwell Creatinine [Mass/Vol] 1.02 mg/dL Normal 0.55-1.02 [facility] Comment on above: Performed By: #### C MADM, LIPA, CMP #### [facility] [address] [address] [address] Mikaela Caldwell EGFR-AF QATARI >60 Normal >=60 [facility] Comment on above: Performed By: #### C MADM, LIPA, CMP #### [facility] [address] [address] [address] Mikaela Caldwell EGFR-NON AF QATARI 57 mL/min/1.73m2 Critically low >=60 [facility] Comment on above: Performed By: #### C MADM, LIPA, CMP #### [facility] [address] [place] [address] Dr. Mikaela Caldwell Globulin (S) [Mass/Vol] 4.0 g/dL Normal [facility] Comment on above: Performed By: #### C MADMarii LIPA, CMP #### [facility] [address] [place] [address] Dr. Mikaela Caldwell Glucose [Mass/Vol] 113 mg/dL Critically high 74-106 [facility] Comment on above: Performed By: #### C ANIL LIPA, CMP #### [facility] [address] [place] [address] Dr. Mikaela Caldwell Potassium [Moles/Vol] 3.5 mmol/L Normal 3.5-5.1 [facility] Comment on above: Performed By: #### C ANIL LIPA, CMP #### [facility] [address] [place] [address] Dr. Mikaela Caldwell Protein [Mass/Vol] 7.5 g/dL Normal 6.4-8.2 [facility] Comment on above: Performed By: #### C MADMarii LIPA, CMP #### [facility] [address] [place] [address] Dr. Mikaela Caldwell Sodium [Moles/Vol] 143 mmol/L Normal 136-145 [facility] Comment on above: Performed By: #### C MADM LIPA, CMP #### [facility] [address] [place] [address] Dr. Mikaela Caldwell Urea nitrogen [Mass/Vol] 18.0 mg/dL Normal 7.0-18.0 [facility] Comment on above: Performed By: #### C MADM LIPA, CMP #### [facility] [address] [place] [address] Dr. Mikaela Caldwell Urea nitrogen/Creatinine [Mass ratio] 17.6 mg/mg Normal [facility] Comment on above: Performed By: #### C RONEN MA, CMP #### [facility] [address] [place] [address] Dr. Mikaela Caldwell URINE MICROSCOPIC ONLYon BACTERIA TRACE Abnormal NONE SEEN [facility] Comment on above: Performed By: #### Jimy ROSAS, UMICRO #### [facility] [address] [place] [address] Dr. Mikaela Caldwell Bacteria identified Cx Nom (U) INDICATED Normal [facility] Comment on above: Performed By: #### Jimy ROSAS UMICRO #### [facility] [address] [place] [address] Dr. Mikaela Caldwell CAST NONE SEEN Normal NONE SEEN [facility] Comment on above: Performed By: #### Jimy ROSAS UMICRO #### [facility] [address] [place] [address] Dr. Mikaela Caldwell Crystals LM Nom (Urine sed) NONE SEEN Normal NONE SEEN [facility] Comment on above: Performed By: #### Jimy ROSAS UMICRO #### [facility] [address] [place] [address] Dr. Mikaela Caldwell Epithelial cells LM Ql (Urine sed) NONE SEEN Normal NONE SEEN /RARE [facility] Comment on above: Performed By: #### Jimy ROSAS UMICRO #### [facility] [address] [place] [address] Dr. Mikaela Caldwell MUCOUS NONE SEEN Normal NONE SEEN [facility] Comment on above: Performed By: #### Jimy ROSAS UMICRO #### [facility] [address] [place] [address] Dr. Mikaela Caldwell RBC 0-2 Normal 0-2 [facility] Comment on above: Performed By: #### Jimy ROSAS UMICRO #### [facility] [address] [place] [address] Dr. Mikaela Caldwell WBC 5-10 Abnormal NONE SEEN [facility] Comment on above: Performed By: #### E AUBREE ROSAS #### [facility] [address] [address] [address] Mikaela Caldwell XR CHEST 2 Von [...] GEORGE LLANES Date: 2021-11-13 02:46 Normal [facility] Vital Signs Date Time Vital Sign Value Performing Clinician Facility 12-19-2022 09:45-0400 Body height 165.1 cm Shubham Chase Other [facility] [employer] Other 12-19-2022 09:45-0400 Body mass index (BMI) [Ratio] 39.27 kg/m2 Shubham Chase Other [employer] Other 12-19-2022 09:45-0400 Body weight 107.05 kg Shubham Rodrigues Other [facility] [employer] Other 07-22-2022 09:50-0400 Blood Pressure Location Jordi MAST [employer] [facility] 07-22-2022 09:50-0400 Diastolic blood pressure 81 mm[Hg] Jordi MAST [facility] 07-22-2022 09:50-0400 Heart rate 72 /min Jordi MAST [facility] 07-22-2022 09:50-0400 Respiratory rate 16 /min Jordi MAST [facility] 07-22-2022 09:50-0400 Systolic blood pressure 129 mm[Hg] Jordi MAST [facility] 12-21-2021 17:00-0400 Diastolic blood pressure 82 mm[Hg] MD Jordi Mast Work Phone: [facility] 12-21-2021 17:00-0400 Heart rate 79 /min MD Jordi Mast Work Phone: [facility] 12-21-2021 17:00-0400 Respiratory rate 16 /min MD Jordi Mast Work Phone: [facility] 12-21-2021 17:00-0400 SaO2% (BldA) [Mass fraction] 100 % MD Jordi Mast Work Phone: [facility] 12-21-2021 17:00-0400 Systolic blood pressure 118 mm[Hg] MD Jordi Mast Work Phone: [facility] 12-21-2021 15:35-0400 Body weight 118 mg MD Jordi Mast Work Phone: [facility] 12-21-2021 14:57-0400 Body height 165.1 cm MD Jordi Msat Work Phone: [facility] 12-21-2021 14:57-0400 Body mass index (BMI) [Ratio] 38.5 kg/m2 MD Jordi Mast Work Phone: [facility] 12-21-2021 14:57-0400 Body weight 105 kg MD Jordi Mast Work Phone: [facility] 12-21-2021 12:56-0400 Body temperature 98.4 [degF] MD Jordi aMst Work Phone: [facility] 11-29-2021 14:51-0400 Diastolic blood pressure 84 mm[Hg] MD Jordi Mast Work Phone: [facility] 11-29-2021 14:51-0400 Heart rate 80 /min MD Jordi Mast Work Phone: [facility] 11-29-2021 14:51-0400 Respiratory rate 16 /min MD Jordi Mast Work Phone: [facility] 11-29-2021 14:51-0400 SaO2% (BldA) [Mass fraction] 98 % MD Jordi Mast Work Phone: [facility] 11-29-2021 14:51-0400 Systolic blood pressure 117 mm[Hg] MD Jordi Mast Work Phone: [facility] 11-29-2021 12:45-0400 Body height 165.1 cm MD Jordi Mast Work Phone: [facility] 11-29-2021 12:45-0400 Body mass index (BMI) [Ratio] 37.4 kg/m2 MD Jordi Mast Work Phone: [facility] 11-29-2021 12:45-0400 Body weight 102.05 kg MD Jordi Mast Work Phone: [facility] 11-29-2021 12:24-0400 Body temperature 97.9 [degF] MD Jordi Mast Work Phone: [facility] Encounters Encounter Date Encounter Type Care Provider Facility Start: 02-02-2024 ambulatory Jordi MAST Facility :[facility] Start: 05-12-2023 End: 05-13-[address] [facility] Start: 05-12-2023 Encounter for gynecological examination (general) (routine) without abnormal findings [facility] Start: 02-10-2023 End: 02-10-2023 ambulatory Shubham Rodrigues Other [employer] Other Start: 02-10-2023 Postop follow up vis it related to original px Shubham Rodrigues [facility] Start: 02-10-2023 Telephone encounter Shubham Olexa [facility] Start: 01-27-2023 End: 01-28-2023 ambulatory Jordi MAST Facility:[facility] Start: 01-07-2023 End: 01-07-2023 ambulatory Shubham Olexa Other [employer] Other Start: 01-07-2023 Postop follow up vis it related to original px Shubham Olexa [facility] Start: 01-01-2023 End: 01-01-2023 ambulatory Sue Win Facility:[facility] Start: 12-31-2022 End: 12-31-2022 ambulatory Shubham Olexa Other [employer] Other Start: 12-31-2022 Telephone encounter Shubham Bullockxa [facility] Start: 12-25-2022 End: 12-25-2022 ambulatory Sue Win Facility:[facility] Start: 12-25-2022 End: 12-25-2022 ambulatory MD Sue Win Work Phone: [facility] Work Phone: Start: 12-25-2022 End: 12-25-2022 Patient encounter procedure MD Sue Win Work Phone: [facility] Work Phone: Start: 12-19-2022 End: 12-19-2022 ambulatory Shubham Olexa Other [employer] Other Start: 12-19-2022 Office outpatient vi sit 25 minutes Shubham Olexa [facility] Start: 11-25-2022 End: 11-25-2022 ambulatory Shubham Olexa Other [employer] Other Start: 11-25-2022 Office outpatient ne w 45 minutes Shubham Olexa [facility] Start: 08-12-2022 End: 08-13-[address] JORDI MAST Facility: Start: 07-22-2022 End: 07-23-2022 ambulatory Jordi MAST Facility:[facility] Start: 07-22-2022 End: 07-22-2022 Patient encounter procedure Jordi MAST [facility] Start: 07-18-2022 End: 07-19-[address] JORDI MAST Facility:[facility] Start: 05-15-2022 End: 05-16-[address] HARVEY BURCH Facility:[facility] Start: 03-27-2022 End: 03-28-[address] SUE WIN . Facility:[facility] Start: 12-21-2021 End: 12-21-2021 Admission to same day surgery center MD Jordi Mast [facility] [place] Start: 12-19-2021 End: 12-19-2021 Patient encounter procedure MD Jordi Mast Work Phone: [facility] Start: 12-13-2021 End: 12-13-2021 Patient encounter procedure MD Jordi Mast Work Phone: [facility] Git[facility]Yrg[facility]Oiyob[facility]v [facility] Start: 12-12-2021 End: 12-13-[address] SUE WIN . Facility:[facility] Start: 12-10-2021 End: 12-11-[address] JORDI MAST Facility:[facility] Start: 11-29-2021 End: 11-29-2021 Admission to same day surgery center MD Jordi Mast Work Phone: [facility] [place] Start: 11-27-2021 End: 11-27-2021 Patient encounter procedure MD Jordi Mast Work Phone: [facility] Lto[facility]Xjl[facility]Djnyqols [facility] Start: 11-21-2021 End: 11-21-2021 Patient encounter procedure Jordi MAST [facility] [place] Start: 11-20-2021 End: 11-21-[address] JORDI MAST Facility:[facility] Start: 11-13-2021 End: 11-13-[address] SUE WIN . Facility:[facility] Start: 10-03-2021 End: 10-04-[address] SUE WIN . Facility:[facility] Start: 03-05-2021 End: 03-05-2021 Patient encounter procedure Sue Win MD Work Phone: [facility] Start: 03-05-2021 End: 03-05-2021 Subsequent hospital visit by physician Sue Win MD Work Phone: [facility] Laboratory Comment on above: Vaginal discharge; Women's annual routine gynecological examination Start: 02-25-2019 End: 02-25-2019 Subsequent hospital visit by physician [facility] Comment on above: Women's annual routi [...] ant neoplasm of breast Breast cancer screen [facility] Start: 03-13-2022 End: 03-13-2022 Patient encounter procedure 03/13/2022 Office Visit Obstetrics and Gynecology Rosaura Yang MD [address] [place] [address] [address] [place] [id number] [facility] Start: 02-25-2022 Screening for malign ant neoplasm of cervix [facility] Start: 12-21-2021 End: 12-21-2021 [facility] Work Phone: Start: 12-21-2021 Cystoscopy OR Cysto/Retro/Stent/Stone /Holmium Laser (Left) [facility] Start: 12-21-2021 Diagnostic radiograp hy of abdomen XR [facility] Start: 12-21-2021 End: 12-21-2021 Admission to same day surgery center Departed Surgical Day Care [facility] [place] Start: 12-21-2021 Diagnostic radiograp hy of abdomen XR [facility] Start: 12-19-2021 End: 12-19-2021 Patient encounter procedure Departed Clinical [facility] Mqt[facility]Alo[facility]Drzjcb[facility] Testing Start: 12-13-2021 End: 12-13-2021 Patient encounter procedure Departed Clinical [facility] Lmm-Bhx-Wrexnbez Testing Start: 11-29-2021 [facility] Work Phone: Start: 11-29-2021 [facility] Work Phone: Start: 02-23-2021 Cervical cancer screen Cervical canc er screen [facility] [place], [place] Start: 02-11-2021 COVID-19 Vaccine (3 - Pfizer booster) COVID-19 Vaccine (3 - Pfizer booster) [facility] Start: 02-28-2020 Breast cancer screen Breast cancer s creen [place], [place] Start: 03-27-2019 Influenza vaccination Flu vaccine (# 1) [place], [place] Comment on above: Postponed from 12/27 (Not Indicated) Start: 03-25-2019 Diabetes screen Diabetes screen [place], [place] Comment on above: Postponed from 07/08 (Not Indicated) Start: 03-25-2019 DTaP/Tdap/Td vaccine (1 - Tdap) DTaP/Tdap/Td vaccine (1 - Tdap) [place], [place] Comment on above: Postponed from 07/08 (Patient Refused) Start: 03-25-2019 HIV screen HIV screen [place], [place] Comment on above: Postponed from 07/08 (Patient Refused) Start: 03-25-2019 Lipid screen Lipid screen [place], [place] Comment on above: Postponed from 07/08 (Not Indicated) Start: 2018 Colon cancer screen colonoscopy Colon cancer screen colonoscopy [place], [place] Start: 2018 Shingles Vaccine (1 of 2) Shingles Vaccine (1 of 2) [facility] Start: 2013 Screening for malign ant neoplasm of colon Colon cancer screen colonoscopy [facility] Start: 2008 Diabetes screen Diabetes screen [facility] Start: 2008 Lipid panel Lipid screen [facility] Start: 1998 Screening for malign ant neoplasm of cervix HPV (without or with Pap) [facility] Start: 07-09-1987 DTaP/Tdap/Td vaccine (1 - Tdap) DTaP/Tdap/Td vaccine (1 - Tdap) [facility] Start: 07-09-1983 HIV screening HIV screen [facility] Start: 1968 Hepatitis C screening Hepatitis C sc reen [facility] End: 03-05-2021 Culture, Genital [facility] Work Phone: Comment on above: 1 Occurrences starti ng 03/05/2021 until 03/05/2021 End: 02-25-2019 Cytopathology procedure, preparation of smear, genital source PAP SMEAR Lab Routine Women's Annual Routine Gynecological Examination 1 Occurrences starting 02/25/2019 until 02/25/2019 [facility] [place], [place] Comment on above: 1 Occurrences starti ng 02/25/2019 until 02/25/2019 End: 03-05-2021 Cytopathology procedure, preparation of smear, genital source PAP SMEAR Lab Routine Women's annual routine gynecological examination 1 Occurrences starting 03/05/2021 until 03/05/2021 [facility] Work Phone: Comment on above: 1 Occurrences starti ng 03/05/2021 until 03/05/2021 Patient Education Cystoscopy (DC) [facility] Work Phone: Patient referral [facility] Work Phone: Immunizations Immunization Date Immunization Notes Care Provider Fa cility 09-29-2021 COVID-19 mRNA-1273 (Moderna) MD Jordi Mast Work Phone: [facility] 02-08-2021 Influenza, injectabl e, Madin [place] Canine Kidney, preservative free, quadrivalent Sue Win MD Work Phone: [facility] Work Phone: 08-12-2020 COVID-19 mRNA-1273 (Moderna) MD Jordi Mast Work Phone: [facility] 08-12-2020 COVID-19, Pfizer, PF , 30mcg/0.3mL Sue Win MD Work Phone: [facility] 07-17-2020 SARS-CoV-2 (COVID-19 ) mRNA-1273 vaccine Jordi MAST [facility] 07-15-2020 COVID-19 mRNA-1273 (Moderna) MD Jordi Mast Work Phone: [facility] 07-15-2020 COVID-19, Pfizer, PF , 30mcg/0.3mL Sue Win MD Work Phone: [facility] Work Phone: 05-03-2020 Influenza, injectabl e, Madin [place] Canine Kidney, preservative free, quadrivalent Sue Win MD Work Phone: [employer] Work Phone: 02-08-2020 pneumococcal conjuga te vaccine, 13 valent Sue Win MD Work Phone: [employer] Work Phone: Payers Date Payer Category Payer Self-pay 2019 Unknown [employer] [address] xxxxxxxx 2019-Present [phone] [address] [place] [address] xxxxxxxx [id number] .[id number] 1970 Unknown [id number] 2.16.840.1.378503.3.579.2.593 1968 Unknown [id number] 2.16.840.1.387006.3.579.2.593 1968 Unknown [id number] 2.16.840.1.942448.3.579.2.593 1968 Unknown [id number] 2.16.840.1.581495.3.579.2.593 1968 Unknown [id number] 2.16.840.1.989535.3.579.2.593 1968 Unknown [id number] 2.16.840.1.910937.3.579.2.593 1968 Unknown [id number] 2.16.840.1.606866.3.579.2.593 1968 Unknown [id number] 2.16.840.1.928925.3.579.2.593 1968 Unknown [id number] 2.16.840.1.793955.3.579.2.593 1968 Unknown [id number] 2.16.840.1.383642.3.579.2.727 1968 Unknown [id number] 2.16.840.1.875637.3.579.2.727 1968 Unknown [id number] 2.16.840.1.589081.3.579.2.727 1968 Unknown [id number] 2.16.840.1.476920.3.579.2.173 1959 Unknown [id number] 1.2.840.360376.1.13.239.2.7.3 .966311.315 Unknown [id number] 2.16.840.1.518809.3.579.2.531 Unknown [id number] 2.16.840.1.427734.3.579.2.531 Social History Date Type Detail Facility Start: 02-25-2019 End: 12-25-2022 Tobacco smoking status NHIS Never smoker [place], [place] Start: 02-25-2019 [facility] [place] [place] Start: 1970 Sex Assigned At Not on file M [place], [place] Start: 07-30-2012 Tobacco use and exposure [facility]ok[facility] tobacco [email or web address] Phone: Start: 03-05-2021 Alcohol intake Current drinke r of alcohol (finding) Crew Phone: Tobacco smoking status Never [facility] Start: 1970 Sex Assigned At Female F [facility] Goals Date Patient Goal Desired Activity /State Functional Status Date Assessment Result Facility 07-22-2022 Functional Status N/A [facility] 11-21-2021 Functional Status N/A [facility] Clinical Notes 10-03-2021 to 02-10-2023 Note [...] Other specified postprocedural states (ICD-10 - Z98.890) [email or web address] Other 09-12-2023 Evaluation note* Encounter Date Diagnosis [...] Other specified postprocedural states (ICD-10 - Z98.890) [facility] Other 09-05-2023 Evaluation note* Encounter Date Diagnosis Assessment Notes Treatment Notes Treatment Clinical Notes Dec, Other specified postprocedural states (ICD-10 - Z98.890) [facility] Other 08-24-2023 Evaluation note* Encounter Date Diagnosis [...] right knee, subsequent encounter (ICD-10 - S83.241D) [facility] Other 07-31-2023 Evaluation note* Encounter Date Diagnosis [...] Pain in left knee (ICD-10 - M25.562) [facility] Other 03-27-2023 Hospital Discharge instructions Patient Education 07/22/2022 10:14:42 Kidney Stones, Fthr-kv-Rivr Kidney Stones Kidney stones are rock-like masses [...] Follow these instructions at home: Medicines Take elbx-alp-buwddpf and prescription medicines only as told by [...] Document Reviewed: 08/31/2019 Elsevier Patient Education 2019 [employer]. Follow Up Care 12/26/2021 13:33:59 With:MANNIE ARREGUIN, Jordi Mckeon, URL Address: [facility] [place] [phone]- When:01/22/2023 Comments:ANNAMARIE [facility] [place] [phone] Hospital Discharge instructions Patient Education 11/21/2021 12:49:44 Kidney Stones, Pwtv-xx-Xspf Kidney Stones Kidney stones are rock-like masses [...] Follow these instructions at home: Medicines Take gbvn-qkp-mscdhcd and prescription medicines only as told by [...] 09/30/2008 Document Revised: 08/31/2019 Document Reviewed: 08/31/2019 [employer] Patient Education 2020 [employer]. Follow Up Care 11/14/2021 08:29:10 With:MANNIE ARREGUIN, Jordi Mckeon, URL Address: [address] [place] [address] When: Unknown [facility] 07-19-2022 NoteOPERATIVE NOTE OPERATION DATE: 11/13/2021 [...] placed per urethra. A well lubricated, 22 Surinamese cystourethroscope was passed into the bladder. Moderately tight at the bladder neck. Once into the bladder, teran endoscopy reveals no tumors or stones or diverticula. She does have a moderate cystocele present. Left retrograde pyelogram was then performed utilizing a 6 Surinamese open ended ureteral catheter. The distal ureter [...] and then over the wire a 4.8 Surinamese, 22-30 cm Microvasive double J stent was [...] procedure well. She was transferred [facility] and then back to PACU in [...] the plan. CC: Sue Win M.D. : [facility] Signed and Approved by: DR JORDI MAST 11/29/2021 08:56:00[facility]06-08-2022 NotePROCEDURE: XR KNEE RT 4V or > COMPARISON: None. HISTORY: Pain in right knee FINDINGS: BONES:No acute fracture or dislocation. Mild osteoarthritis with marginal osteophyte formation SOFT TISSUES:Negative. No visible soft tissue swelling. EFFUSION:None visible. OTHER: Negative. IMPRESSION: Mild osteoarthritis Electronically authenticated by: KODY GARRISON Date: 2021-10-03 07:59[facility] No data available for this section [facility] Evaluation + Plan note Future Appointments Appointment Date:01/27/2023 08:00:00 AM Scheduled Provider:Jordi MAST MD Location:[facility] Appointment Type:URO Office Visit [facility] Evaluation note* Diagnosis Vaginal discharge Leukorrhea, not specified as infective Women's annual routine gynecological examination documented in this encounter [facility] Work Phone: evaluation noteNo assessment information available [facility] Work Phone: Evaluation noteNo InformationNort Personal Style Finder Other History general Narrative - Reported* Type Description Date Medical History GERD Medical History Hypothyroidism [facility] Other History general Narrative - Reported* Type Description Date Medical History GERD Medical History Hypothyroidism Surgical History 1. LEFT knee arthros copy with partial medial meniscectomy 2. Chondral debridement medial femoral condyle, medial tibial plateau, medial patellar facet [facility] Other Progress note No data available for this section [facility] [place] Assessments Diagnosis Women's annual routine gynecological examination Advance Directives No Advanced Directives Records FoundDocuments on File Type Date Recorded Patient Physical Therapy Supervisor Expl anation Advance Directives and Living Will Power of House Wirer Documents on File Type Date Recorded Patient Physical Therapy Supervisor Expl anation ACP-Advance Directive ACP-Power of House Wirer Advance Directive Response Recorded Date/ Time Advance [...] Care Teams (unrecognized sec tion and content) Rewrite Editor Relationship Specialty Start Date End Date Sue Win MD [address] [place] [address] PCP - General Family Medicine 01/16/16 Team [...] section and content) DATE CREATED AUTHOR 08/18/2022 [facility] DATE CREATED AUTHOR AUTHOR'S ORGANIZ ATION 01/31/2023 [facility] DATE CREATED AUTHOR AUTHOR'S ORGANIZ ATION 02/07/2023 [facility] DATE CREATED AUTHOR AUTHOR'S ORGANIZ ATION [...] BE BASED ON THE PRIMARY CLINICAL RECORDS. [facility]. provides no warranty or guarantee of the accuracy or completeness of information in this document.
--- NOTE | 2024-01-30 07:23 | XR_ITS ---
The [address] [address] Patient Name: KAROL MARCOS MRN: [id number] date: 1970 Sex: F Assigned Patient Location: [facility] Current Patient Location: [facility] Accession/Order Number: [id number] Exam Date: 01/30/2024 07:18 Report Date: 01/30/2024 07:51 At the request of: JORDI MAST Procedure: XR abdomen 1V EXAMINATION: XR abdomen 1V HISTORY: Kidney Stone COMPARISON: XR abdomen 01/23/2023 FINDINGS: KIDNEY/URETER - RIGHT: No visible renal or ureteral calcifications. KIDNEY/URETER - LEFT: No visible renal or ureteral calcifications. PELVIS: No visible ureteral stones. Stable pelvic calcifications favoring phleboliths. BOWEL: No abnormal dilation or deviation. BONES: No acute abnormality. OTHER: Negative. No abnormal gaseous collections. XR/XR abdomen 1V IMPRESSION: 1. No appreciable urinary tract calculi. Electronically authenticated by: ZENAIDA TALBOT Date: 01/30/2024 07:51
== END 2024-01-30 07:11 | disposition home or self-care (01) ==
LOC: RAD 07:12
PROVIDERS: PCP Family Medicine; Visit Provider Urology
DX: N20.0 Calculus of kidney (principal)
CPT/HCPCS: 74018

== ENCOUNTER 2024-02-17 07:22 | Outpatient (OUT) | payer OTHER, SELFPAY ==
--- NOTE | 2024-02-17 | XR_ITS ---
The [address] [address] Patient Name: KAROL MARCOS MRN: [id number] date: 1970 Sex: F Assigned Patient Location: [facility] Current Patient Location: [facility] Accession/Order Number: [id number] Exam Date: 02/17/2024 07:32 Report Date: 02/17/2024 09:30 At the request of: SUE ERWIN Procedure: XR chest 2V PROCEDURE: XR chest 2V DATE: 02/17/2024 6:32 AM CDT COMPARISONS: 11/13/2021 CLINICAL INDICATION: 53 years Female CHEST WALL PAIN FINDINGS: The cardiomediastinal silhouette and pulmonary vasculature are within normal limits. The lungs are clear. There is no evidence of pleural effusion or pneumothorax. XR/XR chest 2V IMPRESSION: Chest radiograph is within normal limits. Electronically authenticated by: CHAPARRO VILLANUEVA Date: 02/17/2024 09:30
--- NOTE | 2024-02-17 | US_ITS ---
Patient Name: KAROL MARCOS MR#: [id number] : 1970 Exam Date: 02/17/2024 Ordering Doctor: DR Neymar Win . RADIOLOGY REPORT PROCEDURE: US BREAST LT LIMITED COMPARISON: MM TOMOSYNTHESIS SCREENING BI, 04/30/2023. MM DIAGNOSTIC MAMMO UNILAT RT, 05/13/2023. INDICATIONS: CHEST WALL PAIN TECHNIQUE: Breast ultrasound was performed, with evaluation focusing only on specific areas of concern. FINDINGS: DIAGNOSTIC CATEGORY 0--INCOMPLETE: NEED ADDITIONAL IMAGING EVALUATION. Ultrasound in the region of the patient's pain, 12 o'clock position demonstrates dilated ducts measuring up to 2.1 mm. Consider follow-up diagnostic mammogram for further evaluation RECOMMENDATIONS: ADDITIONAL MAMMOGRAPHIC VIEWS REQUIRED: BILATERAL BREASTS - diagnostic mammogram PLEASE NOTE: A NORMAL ULTRASOUND EXAMINATION DOES NOT EXCLUDE THE POSSIBILITY OF BREAST CANCER. A CLINICALLY SUSPICIOUS PALPABLE LUMP SHOULD BE BIOPSIED. Dictated by: Elijah Ricks MD on 02/17/2024 at 07:54 Approved by: Elijah Ricks MD on 02/17/2024 at 07:57
--- OUTSIDE RECORDS SUMMARY | 2024-02-17 07:25 | XMS_ITS | CCD ---
Author Organization [facility] Care Team Providers Care Care Transition Manager Name Role Phone Sue Win Primary Care Provider [phone] Sue Win Primary Care Physician MD Eros Mast Attending Provider [phone] MD Sue Win Primary Care Provider [phone] YAIMA ., DR ROGERS Consulting Unavailable HOY [...] Attending Unavailable TIMMIS, DR GABRIEL Admmessi Unavailable ROLL, DR KODY Pappas Consulting Unavailable HOY ., DR ROGERS Consulting Unavailable HOY ., DR ROGERS Attending Unavailable HOY ., DR ROGERS Admitting Unavailable HOY ., DR ROGERS Primary Care Unavailable KEZIA, DR EROS Mckeon Consulting Unavailable MADDY LAGUNA Consulting Unavailable AGUBOSIDEYANIRA Colvin Consulting Unavailable SHRADDHA, GEORGE Consulting Unavailable KEZIA, DR EROS Mckeon Consulting Unavailable TYREEY ., DR ROGERS Primary Care Unavailable KEZIA, DR EROS Mckeon Attending Unavailable KEZIA, DR EROS Mckeon Admitting Unavailable ZIEBOFELIA, DR TUCKER Martin Consulting Unavailable KEZIA, DR EROS Mckeon Consulting Unavailable YAIMA ., DR ROGERS Primary Care Unavailable KEZIA, DR EROS Mckeon Attending Unavailable KEZIA, DR EROS Mckeon Admitting Unavailable HOY ., DR ROGERS Consulting Unavailable HOY ., DR ROGERS Primary Care Unavailable HOY ., DR ROGERS Attending Unavailable YAIMA ., DR ROGERS Admitting Unavailable ROLL, DR KODY Pappas Consulting Unavailable KEZIA, DR EROS Mckeon Consulting Unavailable YAIMA Thakkar, DR ROGERS Primary Care Unavailable KEZIA, DR EROS Mckeon Attending Unavailable KEZIA, DR EROS Mckeon Admitting Unavailable DAHIANA, DR TUCKER Martin Consulting Unavailable KEZIA, DR EROS Mckeon Consulting Unavailable YAIMA ., DR ROGERS Primary Care Unavailable KEZIA, DR EROS Mckeon Attending Unavailable KEZIA, DR EROS Mckeon Admitting Unavailable DAHIANA, DR TUCKER Martin Consulting Unavailable Ravi Shubham Unavailable MD Sue Win Primary Care Provider [phone] MD Shubham Rodrigues Attending Provider [phone] Sue Win Primary Care Unavailable Ravi, Shubham Admitting Unavailable Ravi, Shubham Attending Unavailable Sue Win Primary Care Unavailable Ravi, Shubham Admitting Unavailable Ravi, Shubham Attending Unavailable SUE WIN Primary Care Unavailable BERHANE YANG Referring Unavailable Eros MAST Attending Unavailable Allergies Allergy Classification Reported Allergen(s) Allergy Type Date of Onset Reaction(s) Facility (1 source) No Known Medication Allergies; Translations: [No Known Medication Allergies] Propensity to adverse reactions (disorder) [facility] Repository Medications Current Medications Medication Drug Class(es) Dates Sig (Normalized) Sig (Original) acetaminophen 325 mg / HYDROcodone bitartrate 5 mg oral tablet (10 sources) Opioid Agonist Start: 12-31-2022 take 1 tablet by mouth every four hours as needed for pain HYDROcodone-Aceta minophen 5-325 MG 1 tablet as needed for pain Orally up to every 4 hrs for 5 days PB: [id number] Dec, Active Start: 11-29-2021 End: 12-13-2021 take 1 tablet by mouth every four to six hours Hydrocodone-Acetaminophen Discontinued 1 TAB PO EVERY 4-6 HOURS 01 28November 29, 2021 December 13, 2021 2:25pm aspirin 81 mg chewable tablet (1 source) Platelet Aggregation Inhibitor, Nonsteroidal Anti-inflammatory Drug Start: 01-27-2023 aspirin 81 mg Chew Tab mg tab(s), Chewed, Daily, Refills(s) 0 Start Date: 01/27/23 Status: Ordered Claritin-D 12 Hour (6 sources) Claritin-D 12 Hour Active diclofenac sodium 75 mg delayed release oral tablet (9 sources) Nonsteroidal Anti-inflammatory Drug Start: 11-29-2021 take 75 mg by mouth twice daily Diclofenac Sodium Active 75 MG PO Twice daily November 29, 2021 12:00am Start: 01-19-2019 take 75 mg by mouth twice caden y diclofenac sodium 75 mg, Oral, BID Start Date: 01/19/19 Status: Ordered dicyclomine hydrochloride 20 mg oral tablet (17 sources) Anticholinergic Start: 11-21-2021 dicyclomine 20 mg Tab 20 mg = 1 tab(s) Start Date: 11/21/21 Status: Ordered Start: 11-03-2018 take 1 tablet by gee [...] 02/09/2020 Active Esomeprazole Mag nesium Active Phylicia (4 sources) Histamine-1 Receptor Antagonist Start: 11-21-2021 Phylicia [...] 12:00am levothyroxine sodium 0.05 mg oral tablet (17 sources) l-Thyrox ine Start: 11-29-2021 take 50 [...] Oral, Daily Start Date: 01/19/19 Status: Ordered liothyronine sodium 0.005 mg oral tablet (1 source) l-Triiodothyronine Start: 02-02-2024 liothyronine 5 mcg Tab Refills(s) 0 Start Date: 02/02/24 Status: Ordered lisinopril 20 mg oral tablet (1 source) Angiotensin Converting Enzyme Inhibitor Start: 02-02-2024 lisinopril 20 mg Tab Refills(s) 0 Start Date: 02/02/24 Status: Ordered Loratadine / Pseudoephedrine (3 sources) [...] injury, left knee, initial encounter Episodic Lymphadenitis (3 sources) Cervical lymphadenopathy 01-19-2019 Episodic Osteoarthritis (20 sources) Unilateral primary osteoarthritis, right knee; Translations: [Osteoarthritis of right knee joint] Onset: 10-06-2021 Chronic Other ear and sense organ disorders (3 sources) Otalgia 01-19-2019 Episodic Other female genital [...] left knee Episodic Other upper respiratory disease (3 sources) Congestion of nasal sinus 01-19-2019 Episodic Residual codes; unclassified (3 sources) Other specified postprocedural states Episodic Thyroid disorders (8 sources) Thyroid nodule; Translations: [Nontoxic single thyroid [...] 11-16-2021 Episodic Other aftercare (1 source) 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) drug therapy; Translations: [[employer] CURRENT DRUG THERAPY] Onset: 11-16-2021 Episodic Other [...] Ambulatory Visit Summaryon 1 Ambulatory Visit Summary Ambulatory Visi t Summary KAROL PLASCENCIA :1970 Visit Date:02/02/2024 Ambulatory Visit Instructions Your Care Team Primary Care Physician - Sue Win MD This Is Your Medications List aspirin (aspirin 81 mg Chew Tab) diclofenac (diclofenac sodium) dicyclomine (dicyclomine 20 mg Tab) fexofenadine (Phylicia) levothyroxine (levothyroxine 50 mcg (0.05 mg) Tab) liothyronine (liothyronine 5 mcg Tab) lisinopril (lisinopril 20 mg Tab) Procedures Performed ESWL - Extracorporeal shockwave lithotripsy for renal calculus (12/21/2021), Cystoscopic insertion of ureteric stent (11/29/2021), Cystoscope (11/13/2021), Colonoscopy (08/26/2018), D&C - Dilatation and curettage, Diagnostic endoscopy. Medications What How Much When Instructions Unchanged aspirin (aspirin 81 mg Chew Tab) Chewed Every day Unchanged diclofenac (diclofenac sodium) 75 Milligram By Mouth 2 times a day Unchanged dicyclomine (dicyclomine 20 mg Tab) 1 Tablets Unchanged fexofenadine (Phylicia) By Mouth Unchanged levothyroxine (levothyroxine 50 mcg (0.05 mg) Tab) 1 Tablets By Mouth Every day Unchanged liothyronine (liothyronine 5 mcg Tab) Unchanged lisinopril (lisinopril 20 mg Tab) Allergies No Known Medication Allergies Problems Ongoing - Any problem that you are currently receiving treatment for. Cervical adenopathy History of kidney stones Kidney stone Right ear pain Sinus congestion Thyroid nodule Ureteral stone Patient Survey You may receive a survey via text or e-mail asking about your office visit. Please share your experience with us by completing your survey. We appreciate your feedback and thank you for choosing us for your care. [facility] Reminderson 02-02-2024 Reminders Reminders -- From: Glenys Zimmer To: EU - Administrative; Sent: 02/02/2024 08:26:12 EDT Show up: 05/30/2025 08:17:00 EST Subject: 18 mo appt Due Date/Time: 08/01/2025 08:17:00 EDT Reminder/Recall SCHEDULE KAROL PLASCENCIA IN 18 MO [address] MAST [facility] Urology Office/Clinic Noteon 02-02-2024 Urology Office/Clinic Note Urology Office/Clinic Note Chief Complaint 1 year follow up HPI Staff 1 [facility] Previous Dx: kidney stone. S/p litholink 08/12/22. L laser litho 12/21/21. L ESWL 11/29/21. *No urologic meds. Dysuria: denies pain or burning Incomplete bladder emptying: denies Hematuria: denies visible blood Frequency: denies Urgency: denies Nocturia: 1x Stream: denies hesitancy, denies weak stream Leaking: denies Post void dripping: denies Wearing pads/ Depends: denies Urge incontinence: denies Stress incontinence: denies Incontinence without Sensory Awareness: denies Abdominal pain: denies Flank pain: denies Sexual complaints: denies History of Present Illness Tests reviewed: UA, KUB I have reviewed the previous health record information and history for this patient from Dr. Mast. I have reviewed and verified the staff HPI to be accurate for this encounter. Review of Systems PHQ Score Initial Depression Screen Score: 0 SCORE ROS - Provider Constitutional: denies weight loss, [...] HPI. Physical Exam Vitals & Measurements HR: 82(Peripheral) RR: 16 BP: 114/90 HT: 65 in HT: 164 cm WT: 106.5 kg WT: 234.3 lb BMI: 39.6 General Appearance: alert, no distress, well nourished, well developed female. Assessment/Plan 1. Kidney stone (N20.0: Calculus of kidney) KUB 07/18/22 - Bilateral nephrolithiasis 2 mm in both kidneys. LithoLink 08/12/22 - Low void volume, urine citrate is elevated, calcium in urine is slightly elevated. KUB 01/23/23 - Neg but evaluation limited due to dense bowel overlying content. KUB 01/30/24 [facility] - Neg. Personal review: neg. UA show trace leuks. Reviewed imaging with pt. Did warn pt that small stone could be present that was missed on the xray. Seems to be doing well with fluid intake. Can extend length between visits given stability. No urinary complaints. Follow up 1.5 yrs with KUB or sooner if needed. Pt understands and agrees with plan. -Cont high fluid intake. Doing well. No kidney stones passed. Denies any flank pain. Reviewed KUB and this demonstrates no obvious calculi. The radiology report is the same. Will not increase the time interval between visits to 18 months and she agrees with the plan. Push fluids and she drinks a lot of lemonade. Follow-up With When Contact Information KEZIA ARREGUIN, Eros Mckeon, URL [address] [place], [place] [id number]- Additional Instructions: 1.5 yrs with KUB Patient Education Dietary Guidelines to Help Prevent Kidney Stones IManjula, personally scribed for Dr. Mast on 02/02/2024 08:12:47. . Documentation recorded by the scribe, Manjula Sheikh, accurately reflects the services(s) I performed and decisions made by me. Authenticated by Dr. Mast on 02/02/2024 08:13:48. Portions of this record may have been created with voice recognition artificial intelligence software, specifically [employer], [employer] and or [email or web address]. Substitutions may have occurred due to the [...] aspirin 81 mg Chew Tab, Chewed, Daily diclofenac sodium, 75 mg, Oral, BID dicyclomine 20 mg Tab, 20 mg= 1 tab(s) levothyroxine 50 mcg (0.05 mg) Tab, 50 mcg= 1 tab(s), Oral, Daily liothyronine 5 mcg Tab lisinopril 20 mg Tab Allergies No Known Medication Allergies Social History Alcohol - Denies Alcohol Use, 01/19/2019 Substance Abuse - Denies Substance Abuse, 01/19/2019 Tobacco Never (less than 100 in lifetime) Tobacco Use:. Never Smokeless Tobacco Use:., 02/02/2024 Family History Hypertension: Mother. Primary malignant neoplasm of bone: Father. Thyroid goiter: Mother. Immunizations Vaccine Date Status SARS-CoV-2 (COVID-19) mRNA-1273 vaccine 11/13/2021 Recorded SARS-CoV-2 (COVID-19) mRNA-1273 vaccine 09/29/2021 Recorded influenza virus vaccine, inactivated 02/08/2021 Recorded SARS-CoV-2 (COVID-19) mRNA-1273 vaccine (more content not included)... Normal [facility] Comment on above: Result Comment: Elec tronically Signed By: Eros MAST MD\.br\Date and Time Signed: 02/02/24 08:14 EDT\.br\Electronically Co-Signed By: Manjula Sheikh\.br\Date and Time Co-Signed: 02/02/24 08:13 EDT Cytology Reporton 05-12-2023 Cytology report Cyto stain.thin prep Doc (Cvx/Vag) (NOTE) Path Number: [id number] DIAGNOSIS Imaged ThinPrep Pap - Cervical (1 monolayer slide): Specimen Adequacy: Satisfactory for evaluation. -Endocervical/trans formation zone component is absent. Descriptive Diagnosis: Negative for intraepithelial lesion or malignancy. Cytotech Screener: EY Electronically Signed Out EBijan Young CT(ASCP) ey/05/28/2023 Source of Specimen: A: Imaged ThinPrep Pap - Cervical (1 monolayer slide) HPV Reflex?............ ..........HPV if Abnormal Clinical History Postmenopausal Z01.419 Routine psych arnp exam without abnormal findings LMP: 01/23/2016 Processing Lab: [address] [id number] Interpretation performed at [address] [id number] This Pap Test has been evaluated with [...] GYNECOLOGIC CYTOLOGY REPORT Patient Name: KAROL PLASCENCIA [facility] Rec: [id number] [facility] [employer] [facility] ANATOMIC PATHOLOGY [address] [place] [address]. [place], [place] [address] Normal [facility] Alanine aminotransferase [En zymatic activity/volume] in Serum or PlasmaOrdered By: Shubham Rodrigues on 12-25-2022 ALT [Catalytic activity/Vol] 27 U/L 7-52 [facility] Albumin [Mass/volume] in Ser um or Plasma by Bromocresol green (BCG) dye binding methoOrdered By: Shubham Rodrigues on 12-25-2022 Albumin BCG dye [Mass/Vol] 3.9 g/dL 3.5-5.7 [facility] Alkaline phosphatase [Enzyma tic activity/volume] in Serum or PlasmaOrdered By: Shubham Rodrigues on 12-25-2022 ALP [Catalytic activity/Vol] 138 U/L 34-104 [facility] Aspartate aminotransferase [ Enzymatic activity/volume] in Serum or PlasmaOrdered By: Shubham Rodrigues on 12-25-2022 AST [Catalytic activity/Vol] 20 U/L 13-39 [facility] Basophils Auto (Bld) [#/Vol] Ordered By: Shubham Rodrigues on 12-25-2022 Basophils (Bld) [#/Vol] 0.1 10*3/uL 0.0-0.2 [facility] Basophils/100 WBC Auto (Bld) Ordered By: Shubham Rodrigues on 12-25-2022 Basophils/100 WBC (Bld) 0.8 % . [facility] Bilirubin.total [Mass/volume ] in Serum or PlasmaOrdered By: Shubham Rodrigues on 12-25-2022 Bilirubin [Mass/Vol] 0.4 mg/dL 0.3-1.0 [facility] CMP with reflex to A1Con Albumin [Mass/Vol] 3.9 g/dL Normal 3.5-5.7 [facility] Comment on above: Performed By: #### C BC, CMP wRFX A1C #### [facility] [address] [place] [address] [place] Albumin/Globulin [Mass ratio] 1.4 {ratio} Normal [facility] Comment on above: Performed By: #### C BC, CMP wRFX A1C #### [facility] [address] [place] [address] [place] ALP [Catalytic activity/Vol] 138 U/L High 34-104 [facility] Comment on above: Result Comment: PERF ORMED BY: [facility] [address] [place] [address] PATHOLOGIST ASTROCHEMIST MULUGETA ANGLIN M.D. Performed By: #### C BC, CMP wRFX A1C #### [facility] [address] [place] [id number] [place] ALT [Catalytic activity/Vol] 27 U/L Normal 7-52 [facility] Comment on above: Performed By: #### C BC, CMP wRFX A1C #### [facility] [address] [place] [address] [place] Anion gap [Moles/Vol] 10.0 mmol/L Normal 6.0-15.0 [facility] Comment on above: Performed By: #### C BC, CMP wRFX A1C #### [facility] [address] [place] [address] [place] AST [Catalytic activity/Vol] 20 U/L Normal 13-39 [facility] Comment on above: Performed By: #### C BC, CMP wRFX A1C #### [facility] [address] [place] [address] [place] Bilirubin [Mass/Vol] 0.4 mg/dL Normal 0.3-1.0 [facility] Comment on above: Performed By: #### C BC, CMP wRFX A1C #### [facility] [address] [place] [address] [place] Calcium [Mass/Vol] 9.1 mg/dL Normal 8.6-10.3 [facility] Comment on above: Performed By: #### C BC, CMP wRFX A1C #### [facility] [address] [place] [address] [place] Chloride [Moles/Vol] 104 mmol/L Normal 98-107 [facility] Comment on above: Performed By: #### C BC, CMP wRFX A1C #### [facility] [address] [place] [id number] [place] CO2 [Moles/Vol] 30.2 mmol/L Normal 21.0-31.0 [facility] Comment on above: Performed By: #### C BC, CMP wRFX A1C #### [facility] [address] [place] [address] [place] Creatinine [Mass/Vol] 0.69 mg/dL Normal 0.60-1.20 [facility] Comment on above: Performed By: #### C BC, CMP wRFX A1C #### [facility] [address] [place] [address] [place] GFR/1.73 sq M.predicted MDRD (S/P/Bld) [Vol rate/Area] mL/min/{1.73_m2} Normal [facility] Comment on above: Performed By: #### C BC, CMP wRFX A1C #### [facility] [address] [place] [address] [place] Globulin (S) [Mass/Vol] 2.8 g/dL Normal [facility] Comment on above: Performed By: #### C BC, CMP wRFX A1C #### [facility] [address] [place] [address] [place] Glucose [Mass/Vol] 99 mg/dL Normal 70-100 [facility] Comment on above: Performed By: #### C BC, CMP wRFX A1C #### [facility] [address] Potassium [Moles/Vol] 4.2 mmol/L Normal 3.5-5.1 [facility] Comment on above: Performed By: #### C BC, CMP wRFX A1C #### [facility] [address] [place] [address] [place] Protein [Mass/Vol] 6.7 g/dL Normal 6.4-8.9 [facility] Comment on above: Performed By: #### C BC, CMP wRFX A1C #### [facility] [address] [place] [address] [place] Sodium [Moles/Vol] 140 mmol/L Normal 136-145 [facility] Comment on above: Performed By: #### C BC, CMP wRFX A1C #### [facility] [address] [place] [address] [place] Urea nitrogen [Mass/Vol] 18 mg/dL Normal 7-25 [facility] Comment on above: Performed By: #### C BC, CMP wRFX A1C #### [facility] [address] [place] [address] [place] Calcium [Mass/volume] in Ser um or PlasmaOrdered By: Shubham Rodrigues on 12-25-2022 Calcium [Mass/Vol] 9.1 mg/dL 8.6-10.3 [facility] Carbon dioxide, total [Moles /volume] in Serum or PlasmaOrdered By: Shubham Rodrigues on 12-25-2022 CO2 [Moles/Vol] 30.2 mmol/L 21.0-31.0 [facility] Chloride [Moles/volume] in S gerry or PlasmaOrdered By: Shubham Ravi on 12-25-2022 Chloride [Moles/Vol] 104 mmol/L 98-107 [facility] Complete Blood Count Auto Di ffon 12-25-2022 Basophils (Bld) [#/Vol] 0.1 10*3/uL Normal 0.0-0.2 [facility] Comment on above: Result Comment: PERF ORMED BY: [place] [address] PATHOLOGIST ASTROCHEMIST MULUGETA ANGLIN M.D. Performed By: #### C BC, CMP wRFX A1C #### [facility] [address] [place] [address] [place] Basophils/100 WBC (Bld) 0.8 % Normal . [facility] Comment on above: Performed By: #### C BC, CMP wRFX A1C #### [facility] [address] [place] [address] [place] Eosinophils (Bld) [#/Vol] 0.2 10*3/uL Normal 0.0-0.45 [facility] Comment on above: Performed By: #### C BC, CMP wRFX A1C #### [facility] [address] [place] [address] [place] Eosinophils/100 WBC (Bld) 3.0 % Normal . [facility] Comment on above: Performed By: #### C BC, CMP wRFX A1C #### [facility] [address] [place] [address] [place] Erythrocyte distribution width (RBC) [Ratio] 14.4 % Normal 11.9-15.3 [facility] Comment on above: Performed By: #### C BC, CMP wRFX A1C #### [facility] [address] [place] [address] [place] Hematocrit (Bld) [Volume fraction] 39.1 % Normal 34.0-46.4 [facility] Comment on above: Performed By: #### C BC, CMP wRFX A1C #### [facility] [address] Hemoglobin (Bld) [Mass/Vol] 13.0 g/dL Normal 11.8-15.4 [facility] Comment on above: Performed By: #### C BC, CMP wRFX A1C #### [address] Lymphocytes (Bld) [#/Vol] 1.5 10*3/uL Normal 1.00-4.8 [facility] Comment on above: Performed By: #### C BC, CMP wRFX A1C #### [place] [address] [place] Lymphocytes/100 WBC (Bld) 22.8 % Normal . [facility] Comment on above: Performed By: #### C BC, CMP wRFX A1C #### [address] MCH (RBC) [Entitic mass] 28.9 pg Normal 24.7-34.3 [facility] Comment on above: Performed By: #### C BC, CMP wRFX A1C #### [address] MCV (RBC) [Entitic vol] 86.9 fL Normal 80-100 [facility] Comment on above: Performed By: #### C BC, CMP wRFX A1C #### [address] Mean Corpuscular HGB Conc 33.2 g/dL Normal 32.0-35.0 [facility] Comment on above: Performed By: #### C BC, CMP wRFX A1C #### [place] [address] [place] Monocytes (Bld) [#/Vol] 0.3 10*3/uL Normal 0.0-0.8 [facility] Comment on above: Performed By: #### C BC, CMP wRFX A1C #### [place] [address] [place] Monocytes/100 WBC (Bld) 4.8 % Normal . [facility] Comment on above: Performed By: #### C BC, CMP wRFX A1C #### [facility] [address] [place] [address] Neutrophils (Bld) [#/Vol] 4.7 10*3/uL Normal 1.8-7.7 [facility] Comment on above: Performed By: #### C BC, CMP wRFX A1C #### [facility] [address] [place] [address] Neutrophils/100 WBC (Bld) 68.6 % Normal . [facility] Comment on above: Performed By: #### C BC, CMP wRFX A1C #### [facility] [address] [place] [address] NRBC% 0.1 /100{WBC} Normal 0-0.5 [facility] Comment on above: Performed By: #### C BC, CMP wRFX A1C #### [address] Platelet mean volume (Bld) [Entitic vol] 7.2 fL Normal 6.3-10.7 [facility] Comment on above: Performed By: #### C BC, CMP wRFX A1C #### [address] Platelets (Bld) [#/Vol] 334 10*3/uL Normal 150-450 [facility] Comment on above: Performed By: #### C BC, CMP wRFX A1C #### [facility] [address] [place] [address] RBC (Bld) [#/Vol] 4.50 10*6/uL Normal 3.60-5.00 [facility] Comment on above: Performed By: #### C BC, CMP wRFX A1C #### [address] WBC (Bld) [#/Vol] 6.8 10*3/uL Normal 3.8-11.6 [facility] Comment on above: Performed By: #### C BC, CMP wRFX A1C #### [facility] [address] Creatinine [Mass/volume] in Serum or PlasmaOrdered By: Shubham Rodrigues on 12-25-2022 Creatinine [Mass/Vol] 0.69 mg/dL 0.60-1.20 [facility] ECG 12 lead ECGon 12-25-2022 ECG 12 lead ECG [facility] [address] [place] [address] [place] [address] Electrocardiograph Report Signed Patient: Karol Plascencia MR#: [id number] : 1970 Acct:[id number] Age/Sex: 52 / F ADM Date: 12/25/22 Loc: Room: Type: [facility] Attending Dr: Shubham Rodrigues MD Ordering Provider: [...] By Samir Bryan DO 12/25 1134 Normal [facility] Eosinophils Auto (Bld) [#/Vo l]Ordered By: Shubham Rodrigues on 12-25-2022 Eosinophils (Bld) [#/Vol] 0.2 10*3/uL 0.0-0.45 [facility] Eosinophils/100 WBC Auto (Bl d)Ordered By: Shubham Rodrigues on 12-25-2022 Eosinophils/100 WBC (Bld) 3.0 % . [facility] Erythrocyte distribution wid th Auto (RBC) [Ratio]Ordered By: Shubham Rodrigues on 12-25-2022 Erythrocyte distribution width (RBC) [Ratio] 14.4 % 11.9-15.3 [facility] Globulin Calc (S) [Mass/Vol] Ordered By: Shubham Rodrigues on 12-25-2022 Globulin (S) [Mass/Vol] 2.8 g/dL [facility] Glucose [Mass/volume] in Ser um or PlasmaOrdered By: Shubham Rodrigues on 12-25-2022 Glucose [Mass/Vol] 99 mg/dL 70-100 [facility] Hematocrit Auto (Bld) [Volum e fraction]Ordered By: Shubham Rodrigues on 12-25-2022 Hematocrit (Bld) [Volume fraction] 39.1 % 34.0-46.4 [facility] Hemoglobin [Mass/volume] in BloodOrdered By: Shubham Rodrigues on 12-25-2022 Hemoglobin (Bld) [Mass/Vol] 13.0 g/dL 11.8-15.4 [facility] Leukocytes [#/volume] correc darren for nucleated erythrocytes in Blood by Automated counOrdered By: Shubham Rodrigues on 12-25-2022 WBC corrected for nucl RBC Auto (Bld) [#/Vol] 6.8 10*3/uL 3.8-11.6 [facility] Lymphocytes Auto (Bld) [#/Vo l]Ordered By: Shubham Rodrigues on 12-25-2022 Lymphocytes (Bld) [#/Vol] 1.5 10*3/uL 1.00-4.8 [facility] Lymphocytes/100 WBC Auto (Bl d)Ordered By: Shubham Rodrigues on 12-25-2022 Lymphocytes/100 WBC (Bld) 22.8 % . [facility] MCH Auto (RBC) [Entitic mass ]Ordered By: Shubham Rodrigues on 12-25-2022 MCH (RBC) [Entitic mass] 28.9 pg 24.7-34.3 [facility] MCHC Auto (RBC) [Mass/Vol]Or dered By: Shubham Rodrigues on 12-25-2022 MCHC (RBC) [Mass/Vol] 33.2 g/dL 32.0-35.0 [facility] MCV Auto (RBC) [Entitic vol] Ordered By: Shubham Rodrigues on 12-25-2022 MCV (RBC) [Entitic vol] 86.9 fL 80-100 [facility] Monocytes Auto (Bld) [#/Vol] Ordered By: Shubham Bullockxa on 12-25-2022 Monocytes (Bld) [#/Vol] 0.3 10*3/uL 0.0-0.8 [facility] Monocytes/100 WBC Auto (Bld) Ordered By: Shubham Olexa on 12-25-2022 Monocytes/100 WBC (Bld) 4.8 % . [facility] Neutrophils Auto (Bld) [#/Vo l]Ordered By: Shubham Olexa on 12-25-2022 Neutrophils (Bld) [#/Vol] 4.7 10*3/uL 1.8-7.7 [facility] Neutrophils/100 WBC Auto (Bl d)Ordered By: Shubham Olexa on 12-25-2022 Neutrophils/100 WBC (Bld) 68.6 % . [facility] No Panel InformationOrdered By: Shubham Rodrigues on 12-25-2022 Estimated GFR (CKD-EPI) > 60.0 mL/Min [facility] Pharmacy Creatinine Clearance (Chem N/A [facility] Nucleated erythrocytes [Pres ence] in Blood by Automated countOrdered By: Shubham Rodrigues on 12-25-2022 Nucleated RBC Auto Ql (Bld) 0.1 /100{WBC} 0-0.5 [facility] Platelet mean volume Auto (B ld) [Entitic vol]Ordered By: Shubham Bullockxa on 12-25-2022 Platelet mean volume (Bld) [Entitic vol] 7.2 fL 6.3-10.7 [facility] Platelets Auto (Bld) [#/Vol] Ordered By: Shubham Olexa on 12-25-2022 Platelets (Bld) [#/Vol] 334 10*3/uL 150-450 [facility] Potassium [Moles/volume] in Serum or PlasmaOrdered By: Shubham Bullockxa on 12-25-2022 Potassium [Moles/Vol] 4.2 mmol/L 3.5-5.1 [facility] Protein [Mass/volume] in Ser um or PlasmaOrdered By: Shubham Bullockxa on 12-25-2022 Protein [Mass/Vol] 6.7 g/dL 6.4-8.9 [facility] RBC Auto (Bld) [#/Vol]Ordere d By: Shubham Rodrigues on 12-25-2022 RBC (Bld) [#/Vol] 4.50 10*6/uL 3.60-5.00 [facility] Serum or plasma albumin/glob ulin mass ratioOrdered By: Shubham Rodrigues on 12-25-2022 Albumin/Globulin [Mass ratio] 1.4 {ratio} [facility] Serum or plasma anion gap de terminationOrdered By: Shubham Rodrigues on 12-25-2022 Anion gap [Moles/Vol] 10.0 mmol/L 6.0-15.0 [facility] Sodium [Moles/volume] in Ser um or PlasmaOrdered By: Shubham Rodrigues on 12-25-2022 Sodium [Moles/Vol] 140 mmol/L 136-145 [facility] Urea nitrogen [Mass/volume] in Serum or PlasmaOrdered By: Shubham Rodrigues on 12-25-2022 Urea nitrogen [Mass/Vol] 18 mg/dL 7-25 [facility] WBC Auto (Bld) [#/Vol]Ordere d By: Shubham Rodrigues on 12-25-2022 WBC (Bld) [#/Vol] 6.8 10*3/uL 3.8-11.6 [facility] PTH INTACTon 08-13-2022 PTH, Intact 59 pg/mL Normal 15-65 [facility] Comment on above: Performed By: #### P THINT ####[facility] [address] [place] [address]Dr. Mikaela Caldwell BUNon 08-12-2022 Urea nitrogen [Mass/Vol] 12.0 mg/dL Normal 7.0-18.0 [facility] Comment on above: Performed By: #### C A, K, CL, BUN, URIC, CO2, CREA, NA ####[facility] [address] [place] [id number]. Mikaela Caldwell CALCIUMon 08-12-2022 Calcium [Mass/Vol] 9.0 mg/dL Normal 8.5-10.1 [facility] Comment on above: Performed By: #### C A, K, CL, BUN, URIC, CO2, CREA, NA ####[facility] [address] [place] [address]Dr. Mikaela Caldwell CHLORIDEon 08-12-2022 Chloride [Moles/Vol] 107 mmol/L Normal 98-107 [facility] Comment on above: Performed By: #### C A, K, CL, BUN, URIC, CO2, CREA, NA ####[facility] [address] [place] [address]Dr. Mikaela Caldwell CO2on 08-12-2022 CO2 [Moles/Vol] 29.7 mmol/L Normal 21.0-32.0 [facility] Comment on above: Performed By: #### C A, K, CL, BUN, URIC, CO2, CREA, NA ####[facility] [address] [place] [address]Dr. [facility] CREATININEon 08-12-2022 Creatinine [Mass/Vol] 0.85 mg/dL Normal 0.55-1.02 [facility] Comment on above: Performed By: #### C A, K, CL, BUN, URIC, CO2, CREA, NA ####[facility] [address] [place] [address]Dr. [facility] EGFR-AF BURUNDIAN >60 Normal >=60 [facility] Comment on above: Performed By: #### C A, K, CL, BUN, URIC, CO2, CREA, NA ####[facility] [address] [place], [place] [address]Dr. [facility] EGFR-NON AF BURUNDIAN >60 Normal >=60 [facility] Comment on above: Performed By: #### C A, K, CL, BUN, URIC, CO2, CREA, NA ####[facility] [address] [place] [address]Dr. Mikaela Cladwell NAon 08-12-2022 Sodium [Moles/Vol] 142 mmol/L Normal 136-145 [facility] Comment on above: Performed By: #### C A, K, CL, BUN, URIC, CO2, CREA, NA ####[facility] [address] [place], [place] [address]Bq. Mikaela Caldwell POTASSIUMon 08-12-2022 Potassium [Moles/Vol] 3.9 mmol/L Normal 3.5-5.1 [facility] Comment on above: Performed By: #### C A, K, CL, BUN, URIC, CO2, CREA, NA ####[facility] [address] [place], [place] [address]Rv. Mikaela Caldwell URIC ACID SERUMon 08-12-2022 Urate [Mass/Vol] 3.8 mg/dL Normal 2.6-6.0 [facility] Comment on above: Performed By: #### C A, K, CL, BUN, URIC, CO2, CREA, NA ####[facility] [address] [place], [place] [address]Oi. Mikaela Caldwell XR KUB 1 VIEWon 07-18-2022 XR KUB [...] by: TUCKER ENGLISH Date: 2022-07-18 09:03 Normal [facility] US THYROIDon 05-15-2022 US THYROID EXAMINATION: [...] IMPRESSION: Bilateral stable thyroid nodules TI-RADS: The [employer] TI-RADS committee's white paper recommendations for thyroid lesions classified as TR4 (moderately suspicious) are listed below: > 1.0 cm. Follow-up ultrasound in 1, 2, 3, and 5 years. > 1.5 cm. FNA. J. Am Ellen Radiol 2017;14:[id number]. Electronically authenticated by: KODY GARRISON Date: 2022-05-15 11:41 Normal [facility] MAMM SCREEN 3D ANN-MARIE CADon 03-27-2022 MG MAMM SCREEN 3D ANN-MARIE CAD Patient: KAROL PLASCENCIA Exam Date: 03/27/2022 : 1970 Gender:F Ordering : DR SUE WIN . Admission #: [id number] Family : Order #: [id number] CLICK HERE TO VIEW EXAM RADIOLOGY REPORT [...] prostate cancer at age 67. LOCATION: [facility] BREAST COMPOSITION: Heterogeneously dense,which may obscure small [...] English M.D. on 03/27/2022 at 15:33 Normal [facility] Ammonium urate crystals dete ction in stone by infrared spectroscopyOrdered By: Eros Mast on 12-21-2021 Ammonium urate crystals Infrared spectroscopy Ql (Stone) N/A [facility] Calcium bilirubinate measure mentOrdered By: Eros Mast on 12-21-2021 Calcium bilirubinate (Stone) [Mass fraction] N/A [facility] Calcium carbonate measuremen tOrdered By: Eros Mast on 12-21-2021 Calcium carbonate (Stone) [Mass fraction] N/A [facility] Calcium hydrogen phosphate d ihydrate/Total in StoneOrdered By: Eros Mast on 12-21-2021 Calcium hydrogen phosphate dihydrate (Stone) [Mass fraction] N/A [facility] Calcium oxalate dihydrate cr ystals detection in stone by infrared spectroscopyOrdered By: Eros Mast on 12-21-2021 Calcium oxalate dihydrate crystals Infrared spectroscopy Ql (Stone) 20 % . [facility] Calcium oxalate monohydrate/ Total in StoneOrdered By: Eros Mast on 12-21-2021 Calcium oxalate monohydrate (Stone) [Mass fraction] 80 % . [facility] Calcium phosphate measuremen tOrdered By: Eros Mast on 12-21-2021 Calcium phosphate (Stone) [Mass fraction] N/A [facility] Calculus analysis interpreta tion in stoneOrdered By: Eros Mast on 12-21-2021 Calculus analysis [Interp] N/A [facility] Calculus analysis [Interp] See comment . [facility] Comment on above: Calculus received in liquid. Wet calculi must be dried before analysis, which delays reporting of results. Leaving calculi in liquid (such as water, saline, blood, urine) may lead to changes in composition. Physician questions regarding Calculi Analysis contact [facility] at: [phone]. Calculi report will follow via computer, mail or boilermaker ship delivery. Calculus analysis with calcu guera photography interpretation in stoneOrdered By: Eros Mast on 12-21-2021 Calculus analysis with calculus photography [Interp] See comment . [facility] Comment on above: Photograph will foll ow under a separate cover Cellular material measuremen t in stone by estimated (mass/mass)Ordered By: Eros Mast on 12-21-2021 Cellular material Est (Stone) [Mass/Mass] N/A [facility] Cholesterol/Total in StoneOr dered By: Eors Mast on 12-21-2021 Cholesterol (Stone) [Mass fraction] N/A [facility] Composition of stoneOrdered By: Eros Mast on 12-21-2021 Composition Nom (Stone) See comment . [facility] Comment on above: Percentage (Represen ts the % composition) Cystine measurementOrdered B y: Eros Mast on 12-21-2021 Cystine (Unsp spec) [Moles/Vol] N/A [facility] Determination of color of ca lculusOrdered By: Eros Mast on 12-21-2021 Color (Stone) Brown . [facility] Hydroxyapatite [Energy Diffe rence] in 24 hour UrineOrdered By: Eros Mast on 12-21-2021 Hydroxyapatite (24H U) [Energy diff] N/A [facility] Measurement of proportion of calculus composed of dried blood (mass/mass)Ordered By: Eros Mast on 12-21-2021 Blood.dried (Stone) [Mass fraction] N/A [facility] Newberyite/Total in StoneOrd ered By: Eros Mast on 12-21-2021 Newberyite (Stone) [Mass fraction] N/A [facility] No Panel InformationOrdered By: Eros Mast on 12-21-2021 Stone 2,8 Dihydroxyadenine N/A [facility] Stone Analysis Disclaimer See comment . [facility] Comment on above: This test was develo ped and its performance characteristics determined by [employer]. It has not been cleared or approved by the Food and Drug Administration. Performed at: [facility] Stone Analysis [address] [place] [address] [address], [place], [place] [id number] Manager Intensive Care: Jayson Santos PhD, Phone: [phone] Stone Bilirubinate N/A [facility] Stone Calcium Palmitate N/A [facility] Stone Calcium Stearate N/[facility] Stone Carbonate Apatite N/A [facility] Stone Drug or Metabolite N/A [facility] Stone Other Constituent N/A [facility] Stone Xanthine N/A [facility] Size [Entitic volume] of Sto neOrdered By: Eros Mast on 12-21-2021 Size (Stone) [Entitic vol] 5x3 mm . [facility] Comment on above: Multiple pieces rece ived. Dimensions of the largest piece reported. Sodium urate crystals detect ion in stone by infrared spectroscopyOrdered By: Eros Mast on 12-21-2021 Sodium urate crystals Infrared spectroscopy Ql (Stone) N/A [facility] Specimen source subject [Typ e]Ordered By: Eros Mast on 12-21-2021 Specimen source subject Nom See comment . [facility] Comment on above: Left Ureter Triamterene measurement in c alculusOrdered By: Eros Mast on 12-21-2021 Triamterene (Stone) [Mass fraction] N/A [facility] Triple phosphate/Total in St oneOrdered By: Eros Mast on 12-21-2021 Triple phosphate (Stone) [Mass fraction] N/A [facility] Uric acid dihydrate crystals detection in stone by infrared spectroscopyOrdered By: Eros Mast on 12-21-2021 Urate dihydrate crystals Infrared spectroscopy Ql (Stone) N/A [facility] COVID-19 Positive/NegativeOr dered By: Eros Mast on 12-19-2021 SARS-CoV-2 (COVID-19) N gene ISABELLA+probe Ql (Resp) Negative Negative [facility] Comment on above: Testing for SARS-CoV -2 by RT-PCR This test was developed and its performance characteristics determined by [employer] and validated at the [facility]. This test has not been FDA cleared [...] aPTT Coag (PPP) [Time] 40.1 s 25.1-36.5 [facility] Basophils Auto (Bld) [#/Vol] Ordered By: Eros Mast on 12-13-2021 Basophils (Bld) [#/Vol] 0.1 10*3/uL 0.0-0.2 [facility] Basophils/100 WBC Auto (Bld) Ordered By: Eros Mast on 12-13-2021 Basophils/100 WBC (Bld) 0.8 % . [facility] Blood hemoglobin measurement (mass/volume)Ordered By: Eros Mast on 12-13-2021 Hemoglobin (Bld) [Mass/Vol] 12.8 g/dL 11.8-15.4 [facility] Blood leukocytes automated c ount (number/volume)Ordered By: Eros Mast on 12-13-2021 WBC (Bld) [#/Vol] 6.9 10*3/uL 4.5-11.0 [facility] Creatinine and Glomerular fi ltration rate.predicted panel (S/P/Bld)Ordered By: Eros Mast on 12-13-2021 Creatinine [Mass/Vol] 0.76 mg/dL 0.44-1.03 [facility] Eosinophils Auto (Bld) [#/Vo l]Ordered By: Eros Mast on 12-13-2021 Eosinophils (Bld) [#/Vol] 0.3 10*3/uL 0.0-0.45 [facility] Eosinophils/100 WBC Auto (Bl d)Ordered By: Eros Mast on 12-13-2021 Eosinophils/100 WBC (Bld) 4.9 % . [facility] Erythrocyte distribution wid th Auto (RBC) [Ratio]Ordered By: Eros Mast on 12-13-2021 Erythrocyte distribution width (RBC) [Ratio] 14.0 % 11.9-15.3 [facility] Estimated glomerular filtrat ion rate (GFR) non- AmericanOrdered By: Eros Mast on 12-13-2021 GFR/1.73 sq M.predicted among non-blacks MDRD (S/P/Bld) [Vol rate/Area] > 60 mL/Min [facility] Hematocrit Auto (Bld) [Volum e fraction]Ordered By: Eros Mast on 12-13-2021 Hematocrit (Bld) [Volume fraction] 39.2 % 34.0-46.4 [facility] Laboratory - CoagulationOrde red By: Eros Mast on 12-13-2021 PT Coag (PPP) [Time] 11.9 s 9.0-12.9 [facility] Laboratory - Hematology and Cell countsOrdered By: Eros Mast on 12-13-2021 Nucleated RBC/100 WBC (Bld) [Ratio] 0.1 % 0-0.5 [facility] Lymphocytes Auto (Bld) [#/Vo l]Ordered By: Eros Mast on 12-13-2021 Lymphocytes (Bld) [#/Vol] 2.0 10*3/uL 1.00-4.8 [facility] Lymphocytes/100 WBC Auto (Bl d)Ordered By: Eros Mast on 12-13-2021 Lymphocytes/100 WBC (Bld) 28.9 % . [facility] MCH Auto (RBC) [Entitic mass ]Ordered By: Eros Mast on 12-13-2021 MCH (RBC) [Entitic mass] 28.8 pg 24.7-34.3 [facility] MCHC Auto (RBC) [Mass/Vol]Or dered By: Eros Mast on 12-13-2021 MCHC (RBC) [Mass/Vol] 32.6 g/dL 32.0-35.0 [facility] MCV Auto (RBC) [Entitic vol] Ordered By: Eros Mast on 12-13-2021 MCV (RBC) [Entitic vol] 88.1 fL 80-100 [facility] Monocytes Auto (Bld) [#/Vol] Ordered By: Eros Mast on 12-13-2021 Monocytes (Bld) [#/Vol] 0.4 10*3/uL 0.0-0.8 [facility] Monocytes/100 WBC Auto (Bld) Ordered By: Eros Mast on 12-13-2021 Monocytes/100 WBC (Bld) 6.5 % . [facility] Neutrophils Auto (Bld) [#/Vo l]Ordered By: Eros Mast on 12-13-2021 Neutrophils (Bld) [#/Vol] 4.1 10*3/uL 1.8-7.7 [facility] Neutrophils/100 WBC Auto (Bl d)Ordered By: Eros Mast on 12-13-2021 Neutrophils/100 WBC (Bld) 58.9 % . [facility] No Panel InformationOrdered By: Eros Mast on 12-13-2021 Estimated GFR () > 60 mL/Min [facility] Comment on above: GFR estimated refere nce range: According to KDOQI guidelines, <60 ml/min/1.73m2 is sufficient to diagnose a patient with chronic kidney disease. Pharmacy Creatinine Clearance (Chem N/A [facility] Platelet mean volume Auto (B ld) [Entitic vol]Ordered By: Eros Mast on 12-13-2021 Platelet mean volume (Bld) [Entitic vol] 7.5 fL 6.3-10.7 [facility] Platelet poor plasma interna tional normalized ratio (INR) by coagulation assay (relatOrdered By: Eros Mast on 12-13-2021 INR Coag (PPP) [Relative time] 1.1 {INR} [facility] Comment on above: INR Therapeutic Rang e [...] 12-13-2021 Platelets (Bld) [#/Vol] 345 10*3/uL 150-450 [facility] RBC Auto (Bld) [#/Vol]Ordere d By: Eros Mast on 12-13-2021 RBC (Bld) [#/Vol] 4.45 10*6/uL 3.60-5.00 [facility] Serum or plasma calcium cielo urement (mass/volume)Ordered By: Eros Mast on 12-13-2021 Calcium [Mass/Vol] 9.2 mg/dL 8.2-10.2 [facility] Serum or plasma chloride ankita surement (moles/volume)Ordered By: Eros Mast on 12-13-2021 Chloride [Moles/Vol] 102 mmol/L 95-114 [facility] Serum or plasma glucose cielo urement (mass/volume)Ordered By: Eros Mast on 12-13-2021 Glucose [Mass/Vol] 90 mg/dL 70-100 [facility] Comment on above: ADA recommended refe rence range Random Glucose Reference Range is dependent on time and content of last meal. Glucose of more than 200 mg/dL in a nonstressed, ambulatory subject supports the diagnosis of Diabetes Mellitus. Serum or plasma potassium me asurement (moles/volume)Ordered By: Eros Mast on 12-13-2021 Potassium [Moles/Vol] 3.6 mmol/L 3.5-5.1 [facility] Serum or plasma sodium measu rement (moles/volume)Ordered By: Eros Mast on 12-13-2021 Sodium [Moles/Vol] 139 mmol/L 136-146 [facility] Serum or plasma total carbon dioxide measurement (moles/volume)Ordered By: Eros Mast on 12-13-2021 CO2 [Moles/Vol] 27.4 mmol/L 22.0-30.0 [facility] Serum or plasma urea nitroge n measurement (mass/volume)Ordered By: Eros Mast on 12-13-2021 Urea nitrogen [Mass/Vol] 13 mg/dL 9-23 [facility] MRI KNEE RT WO CONon 022 MRI [...] by: TUCKER ENGLISH Date: 2021-12-12 17:04 Normal [facility] XR KUB 1 VIEWon 12-10-2021 XR KUB [...] by: TUCKER ENGLISH Date: 2021-12-10 07:56 Normal [facility] COVID-19 SOFIAOrdered By: Gr anuradha Mast on 11-27-2021 SARS-CoV+SARS-CoV-2 (COVID-19) Ag IA.rapid Ql (Resp) Negative Negative [facility] Comment on above: This is a duplicate Mony SARS Antigen (MILES) result to be used for statistical tracking purpose only. No Panel InformationOrdered By: Eros Mast on 11-27-2021 SARS Antigen (LFIA) [facility] XR KUB 1 VIEWon 11-20-2021 XR [...] by: TUCKER ENGLISH Date: 2021-11-20 18:35 Normal [facility] CULTURE URINEon 11-15-2021 CULTURE URINE Isolate 1 [...] F Trimethoprim/Sulfam ethoxazole <=20 S F Normal [facility] Comment on above: Performed By: #### C VDTBH #### [facility] [address] [address] [address] Mikaela Caldwell CARDIAC EDGARDO 3-6on 2 CK [Catalytic activity/Vol] 54 U/L Normal 26-192 [facility] Comment on above: Performed By: #### C VDTBH #### [facility] [address] [address] [address] Mikaela Caldwell CK.MB [Mass/Vol] 2.05 ng/mL Normal <=3.60 [facility] Comment on above: Performed By: #### C VDTBH #### [facility] [address] [address] [address] Mikaela Caldwell HSTROP 6.5 pg/mL Normal 4.0-51.3 [facility] Comment on above: Result Comment: CUT- OFF POINTS HAVE BEEN ESTABLISHED BASED ON THE FOURTH UNIVERSAL DEFINITIONS OF MYOCARDIAL INFARCTION. THE UPPER REFERENCE LIMIT (URL) OF TROPONIN, DEFINED THE 99TH PERCENTILE OF cTnI DISTRIBUTION IN A REFERENCE POPULATION, HAS BEEN CONFIRMED THE DECISION THRESHOLD FOR MN DIAGNOSIS. Performed By: #### C VDTBH #### [facility] [address] [address] [address] Mikaela Caldwell CK [Catalytic activity/Vol] 63 U/L Normal 26-192 [facility] Comment on above: Performed By: #### C MREP #### [facility] [address] [address] [address] Mikaela Caldwell CK.MB [Mass/Vol] 2.28 ng/mL Normal <=3.60 [facility] Comment on above: Performed By: #### C MREP #### [facility] [address] [address] [address] Mikaela Caldwell HSTROP 5.1 pg/mL Normal 4.0-51.3 [facility] Comment on above: Result Comment: CUT- OFF POINTS HAVE BEEN ESTABLISHED BASED ON THE FOURTH UNIVERSAL DEFINITIONS OF MYOCARDIAL INFARCTION. THE UPPER REFERENCE LIMIT (URL) OF TROPONIN, DEFINED THE 99TH PERCENTILE OF cTnI DISTRIBUTION IN A REFERENCE POPULATION, HAS BEEN CONFIRMED THE DECISION THRESHOLD FOR MN DIAGNOSIS. Performed By: #### C MREP #### [facility] [address] [address] [address] Mikaela Caldwell CARDIAC EDGARDO ADMITon 022 CK [Catalytic activity/Vol] 77 U/L Normal 26-192 [facility] Comment on above: Performed By: #### C MADM, LIPA, CMP #### [facility] [address] [address] [address] Mikaela Caldwell CK.MB [Mass/Vol] 2.40 ng/mL Normal <=3.60 [facility] Comment on above: Performed By: #### C MADM, LIPA, CMP #### [facility] [address] [address] [address] Mikaela Caldwell HSTROP 5.8 pg/mL Normal 4.0-51.3 [facility] Comment on above: Result Comment: CUT- OFF POINTS HAVE BEEN ESTABLISHED BASED ON THE FOURTH UNIVERSAL DEFINITIONS OF MYOCARDIAL INFARCTION. THE UPPER REFERENCE LIMIT (URL) OF TROPONIN, DEFINED THE 99TH PERCENTILE OF cTnI DISTRIBUTION IN A REFERENCE POPULATION, HAS BEEN CONFIRMED THE DECISION THRESHOLD FOR MN DIAGNOSIS. Performed By: #### C MADM, LIPA, CMP #### [facility] [address] [place] [address] Dr. Mikaela Caldwell JOYCE 29 ng/mL Normal 9-82 [facility] Comment on above: Performed By: #### C MADM, LIPA, CMP #### [facility] [address] [place] [address] Dr. Mikaela Caldwell CBC AUTO DIFFon 11-13-2021 BASO # 0.1 103/ul Normal 0.0-0.1 [facility] Comment on above: Performed By: #### C BC #### [facility] [address] [place] [address] Dr. Mikaela Caldwell Basophils/100 WBC (Bld) 0.5 % Normal 0.2-2.0 [facility] Comment on above: Performed By: #### C BC #### [facility] [address] [place] [address] Dr. Mikaela Caldwell EO # 0.3 103/ul Normal 0.0-0.7 [facility] Comment on above: Performed By: #### C BC #### [facility] [address] [address] [address] Mikaela Caldwell Eosinophils/100 WBC (Bld) 2.1 % Normal 0.9-7.0 [facility] Comment on above: Performed By: #### C BC #### [facility] [address] [place] [address] Dr. Mikaela Caldwell Erythrocyte distribution width (RBC) [Ratio] 13.2 % Normal 11.0-15.0 [facility] Comment on above: Performed By: #### C BC #### [facility] [address] [place] [address] Dr. Mikaela Caldwell Hematocrit (Bld) [Volume fraction] 40.9 % Normal 36.0-48.0 [facility] Comment on above: Performed By: #### C BC #### [facility] [address] [place] [address] Dr. Mikaela Caldwell Hemoglobin (Bld) [Mass/Vol] 13.1 g/dL Normal 12.0-16.0 [facility] Comment on above: Performed By: #### C BC #### [facility] [address] [place] [address] Dr. Mikaela Caldwell IG # 0.07 10e3/ul Critically high 0.00-0.03 [facility] Comment on above: Performed By: #### C BC #### [facility] [address] [place] [address] Dr. Mikaela Caldwell IG % 0.5 % Normal 0.0-0.5 [facility] Comment on above: Performed By: #### C BC #### [facility] [address] [place] [address] Dr. Mikaela Caldwell LYMPH # 1.8 103/ul Normal 1.2-3.8 [facility] Comment on above: Performed By: #### C BC #### [facility] [address] [place] [address] Dr. Mikaela Caldwell Lymphocytes/100 WBC (Bld) 12.5 % Critically low 20.5-60.0 [facility] Comment on above: Performed By: #### C BC #### [facility] [address] [place] [address] Dr. Mikaela Caldwell MANUAL DIFF REQ NO Normal [facility] Comment on above: Performed By: #### C BC #### [facility] [address] [place] [address] Dr. Mikaela Caldwell MCH (RBC) [Entitic mass] 29.2 pg Normal 26.7-34.0 [facility] Comment on above: Performed By: #### C BC #### [facility] [address] [place] [address] Dr. Mikaela Caldwell MCHC (RBC) [Mass/Vol] 32.0 g/dL Normal 29.9-35.2 [facility] Comment on above: Performed By: #### C BC #### [facility] [address] [place] [address] Dr. Mikaela Caldwell MCV (RBC) [Entitic vol] 91.1 fL Normal 81.0-99.0 [facility] Comment on above: Performed By: #### C BC #### [facility] [address] [place] [address] Dr. Mikaela Caldwell MONO # 0.7 103/ul Normal 0.3-0.8 [facility] Comment on above: Performed By: #### C BC #### [facility] [address] [place] [address] Dr. Mikaela Caldwell Monocytes/100 WBC (Bld) 5.1 % Normal 1.7-12.0 [facility] Comment on above: Performed By: #### C BC #### [facility] [address] [place] [address] Dr. Mikaela Caldwell NEUT # 11.1 103/ul Critically high 1.4-6.5 [facility] Comment on above: Performed By: #### C BC #### [facility] [address] [place] [address] Dr. Mikaela Caldwell Neutrophils/100 WBC (Bld) 79.3 % Critically high 43.0-75.0 [facility] Comment on above: Performed By: #### C BC #### [facility] [address] [place], [place] [address] Dr. Mikaela Caldwell Platelet mean volume (Bld) [Entitic vol] 9.2 fL Critically low 9.5-13.5 [facility] Comment on above: Performed By: #### C BC #### [facility] [address] [place] [address] [address] [address] Mikaela Caldwell PLT 420 103/ul Normal 150-450 [facility] Comment on above: Performed By: #### C BC #### [facility] [address] [place], [place] [address] Dr. Mikaela Caldwell RBC 4.49 106/ul Normal 4.20-5.40 [facility] Comment on above: Performed By: #### C BC #### [facility] [address] [place], [place] [id number] Dr. Mikaela Caldwell WBC 14.0 103/ul Critically high 4.0-11.0 [facility] Comment on above: Performed By: #### C BC #### [facility] [address] [place] [id number] ABD/PELVIS WO CONon [...] GEORGE LLANES Date: 2021-11-13 02:57 Normal [facility] Covid-19 PCR (CVDTB)on 10-26 SARS-CoV-2 (COVID-19) RNA ISABELLA+probe Ql (Unsp spec) Not detected Normal NOT DETECTED [facility] Comment on above: Result Comment: When diagnostic [...] for this test is supported by the Train Operations Manager of Health and Human Service's declaration that [...] used). Performed By: #### C VDTB #### [facility] [address] [place] [address] Dr. Mikaela Caldwell ER URINE PROFILEon 2 Bilirubin Ql (U) Negative Normal NEGATIVE [facility] Comment on above: Performed By: #### E AUBREE ROSAS #### [facility] [address] [place] [address] Dr. Mikaela Caldwell Clarity (U) CLEAR Normal CLEAR [facility] Comment on above: Performed By: #### E AUBREE ROSAS #### [facility] [address] [place] [address] Dr. Mikaela Caldwell Color (U) LT. YELLOW Normal YELLOW [facility] Comment on above: Performed By: #### Jimy ROSAS UMICRO #### [facility] [address] [place] [address] [address] Mikaela MCMANUS A micrscopic examination will be performed if indicated. Normal [facility] Comment on above: Performed By: #### Jimy ROSAS UMICRO #### [facility] [address] [address] [address] Mikaela Caldwell Glucose Ql (U) Negative Normal NEGATIVE [facility] Comment on above: Performed By: #### Jimy ROSAS UMICRO #### [facility] [address] [address] [address] Mikaela Caldwell Hemoglobin Ql (U) TRACE-INTACT Abnormal NEGATIVE [facility] Comment on above: Performed By: #### Jimy ROSAS UMICRO #### [facility] [address] [place] [address] Dr. Mikaela Caldwell Ketones Ql (U) Negative Normal NEGATIVE [facility] Comment on above: Performed By: #### Jimy ROSAS UMICRO #### [facility] [address] [place] [address] Dr. Mikaela Caldwell LEUKOCYTES TRACE Abnormal NEGATIVE [facility] Comment on above: Performed By: #### Jimy ROSAS UMICRO #### [facility] [address] [place] [address] Dr. Mikaela Caldwell Nitrite Ql (U) Positive Abnormal NEGATIVE [facility] Comment on above: Performed By: #### Jimy ROSAS UMICRO #### [facility] [address] [place] [address] Dr. Mikaela Caldwell pH (U) 6.5 [pH] Normal 5-9 [facility] Comment on above: Performed By: #### Jimy ROSAS UMICRO #### [facility] [address] [place] [address] Dr. Mikaela Caldwell SPEC GRAVITY 1.020 Normal 1.005-<=1.025 [facility] Comment on above: Performed By: #### Jimy ROSAS UMICRO #### [facility] [address] [place] [address] Dr. Mikaela Caldwell UA PROTEIN Negative Normal NEGATIVE/ TRACE [facility] Comment on above: Performed By: #### AUBREE ROGERS #### [facility] [address] [place] [address] Dr. Mikaela Caldwell UR MICRO IND INDICATED Normal [facility] Comment on above: Performed By: #### AUBREE ROGERS #### [facility] [address] [place] [address] Dr. Mikaela Caldwell Urobilinogen Qn (U) 0.2 {Lisa'U}/dL Normal 0.2 - 1. 0 [facility] Comment on above: Performed By: #### AUBREE ROGERS #### [facility] [address] [place] [address] Dr. Mikaela Caldwell LACTATE/LACTIC ACIDon 2021 Lactate [Moles/Vol] 1.2 mmol/L Normal 0.4-1.9 [facility] Comment on above: Performed By: #### L ACT ####[facility] [address] [address]Dr. Mikaela Caldwell LIPASEon 11-13-2021 Lipase [Catalytic activity/Vol] 97.0 U/L Normal 73.0-393.0 [facility] Comment on above: Performed By: #### C SIMONE MAA, CMP #### [facility] [address] [place] [address] Dr. Mikaela Caldwell PROF 14(COMP METB)on 022 Albumin [Mass/Vol] 3.5 g/dL Normal 3.4-5.0 [facility] Comment on above: Performed By: #### C SIMONE MAA, CMP #### [facility] [address] [place] [address] Dr. Mikaela Caldwell Albumin/Globulin [Mass ratio] 0.9 {ratio} Normal [facility] Comment on above: Performed By: #### C ANIL LIPA, CMP #### [facility] [address] [place] [address] Dr. Mikaela Caldwell ALP [Catalytic activity/Vol] 161 U/L Critically high 46-116 [facility] Comment on above: Performed By: #### C ANIL LIPA, CMP #### [facility] [address] [address] [address] Mikaela Caldwell ALT [Catalytic activity/Vol] 30 U/L Normal 14-59 [facility] Comment on above: Performed By: #### C ANIL LIPA, CMP #### [facility] [address] [address] [address] Mikaela Caldwell Anion gap [Moles/Vol] 10.4 mmol/L Normal [facility] Comment on above: Performed By: #### C ANIL LIPA, CMP #### [facility] [address] [place] [address] Dr. Mikaela Caldwell AST [Catalytic activity/Vol] 17 U/L Normal 15-37 [facility] Comment on above: Performed By: #### C ANIL LIPA, CMP #### [facility] [address] [place] [address] Dr. Mikaela Caldwell Bilirubin [Mass/Vol] 0.3 mg/dL Normal 0.2-1.0 [facility] Comment on above: Performed By: #### C ANIL LIPA, CMP #### [facility] [address] [place] [address] Dr. Mikaela Caldwell Calcium [Mass/Vol] 8.8 mg/dL Normal 8.5-10.1 [facility] Comment on above: Performed By: #### C ANIL, LIPA, CMP #### [facility] [address] [place] [address] Dr. Mikaela Caldwell Chloride [Moles/Vol] 106 mmol/L Normal 98-107 [facility] Comment on above: Performed By: #### C ANIL LIPA, CMP #### [facility] [address] [place] [address] Dr. Mikaela Caldwell CO2 [Moles/Vol] 30.1 mmol/L Normal 21.0-32.0 [facility] Comment on above: Performed By: #### C MADM, LIPA, CMP #### [facility] [address] [address] [address] Mikaela Caldwell Creatinine [Mass/Vol] 1.02 mg/dL Normal 0.55-1.02 [facility] Comment on above: Performed By: #### C MADM, LIPA, CMP #### [facility] [address] [place] [address] Dr. Mikaela Caldwell EGFR-AF BURUNDIAN >60 Normal >=60 [facility] Comment on above: Performed By: #### C MADM, LIPA, CMP #### [facility] [address] [place] [address] Dr. Mikaela Caldwell EGFR-NON AF BURUNDIAN 57 mL/min/1.73m2 Critically low >=60 [facility] Comment on above: Performed By: #### C MADM, LIPA, CMP #### [facility] [address] [place] [address] Dr. Mikaela Caldwell Globulin (S) [Mass/Vol] 4.0 g/dL Normal [facility] Comment on above: Performed By: #### C MADM, LIPA, CMP #### [facility] [address] [place] [address] Dr. Mikaela Caldwell Glucose [Mass/Vol] 113 mg/dL Critically high 74-106 [facility] Comment on above: Performed By: #### C MADM, LIPA, CMP #### [facility] [address] [place] [address] Dr. Mikaela Caldwell Potassium [Moles/Vol] 3.5 mmol/L Normal 3.5-5.1 [facility] Comment on above: Performed By: #### C MADM, LIPA, CMP #### [facility] [address] [place] [address] Dr. Mikaela Caldwell Protein [Mass/Vol] 7.5 g/dL Normal 6.4-8.2 [facility] Comment on above: Performed By: #### C MADM, LIPA, CMP #### [facility] [address] [place] [address] Dr. Mikaela Caldwell Sodium [Moles/Vol] 143 mmol/L Normal 136-145 [facility] Comment on above: Performed By: #### C RONEN MA, CMP #### [facility] [address] [place] [address] Dr. Mikaela Caldwell Urea nitrogen [Mass/Vol] 18.0 mg/dL Normal 7.0-18.0 [facility] Comment on above: Performed By: #### C RONEN MA, CMP #### [facility] [address] [place] [address] Dr. Mikaela Caldwell Urea nitrogen/Creatinine [Mass ratio] 17.6 mg/mg Normal [facility] Comment on above: Performed By: #### C RONEN MA, CMP #### [facility] [address] [place] [address] Dr. Mikaela Caldwell URINE MICROSCOPIC ONLYon BACTERIA TRACE Abnormal NONE SEEN [facility] Comment on above: Performed By: #### Jimy ROSAS UMICRO #### [facility] [address] [place] [address] Dr. Mikaela Caldwell Bacteria identified Cx Nom (U) INDICATED Normal [facility] Comment on above: Performed By: #### Jimy ROSAS UMICRO #### [facility] [address] [place] [address] Dr. Mikaela Caldwell CAST NONE SEEN Normal NONE SEEN [facility] Comment on above: Performed By: #### Jimy ROSAS UMICRO #### [facility] [address] [place] [address] Dr. Mikaela Caldwell Crystals LM Nom (Urine sed) NONE SEEN Normal NONE SEEN [facility] Comment on above: Performed By: #### Jimy ROSAS UMICRO #### [facility] [address] [place] [address] Dr. Mikaela Caldwell Epithelial cells LM Ql (Urine sed) NONE SEEN Normal NONE SEEN /RARE [facility] Comment on above: Performed By: #### Jimy ROSAS UMICRO #### [facility] [address] [place] [address] Dr. Mikaela Caldwell MUCOUS NONE SEEN Normal NONE SEEN [facility] Comment on above: Performed By: #### KENDELL ROGERSRO #### [facility] [address] [place], [place] [address] Dr. Mikaela Caldwell RBC 0-2 Normal 0-2 [facility] Comment on above: Performed By: #### Jimy ROSAS UMICRO #### [facility] [address] [place], [place] [address] Dr. Mikaela Caldwell WBC 5-10 Abnormal NONE SEEN [facility] Comment on above: Performed By: #### E RALPH UMICRO #### [facility] [address] [place], [place] [address] Dr. Mikaela Caldwell XR CHEST 2 Von [...] acute cardiopulmonary process. Electronically authenticated by: GEORGE SAID Date: 2021-11-13 02:46 Normal [facility] Vital Signs Date Time Vital Sign Value Performing Clinician Facility 02-02-2024 08:03-0400 Blood Pressure Location [facility] 02-02-2024 08:03-0400 Diastolic blood pressure 90 mm[Hg] [facility] 02-02-2024 08:03-0400 Heart rate 82 /min [facility] 02-02-2024 08:03-0400 Respiratory rate 16 /min [facility] 02-02-2024 08:03-0400 Systolic blood pressure 114 mm[Hg] [facility] 12-19-2022 09:45-0400 Body height 165.1 cm Shubham Olexa Other [facility] Other 12-19-2022 09:45-0400 Body mass index (BMI) [Ratio] 39.27 kg/m2 Shubham Olexa Other [facility] Other 12-19-2022 09:45-0400 Body weight 107.05 kg Shubham Olexa Other [facility] Other 07-22-2022 09:50-0400 Blood Pressure Location [facility] 07-22-2022 09:50-0400 Diastolic blood pressure 81 mm[Hg] [facility] 07-22-2022 09:50-0400 Heart rate 72 /min [facility]ros [facility] 07-22-2022 09:50-0400 Respiratory rate 16 /min Eros [facility] 07-22-2022 09:50-0400 Systolic blood pressure 129 mm[Hg] Eros [facility] 12-21-2021 17:00-0400 Diastolic blood pressure 82 mm[Hg] MD Eros Mast Work Phone: [facility] 12-21-2021 17:00-0400 Heart rate 79 /min MD Eros Mast Work Phone: [facility] 12-21-2021 17:00-0400 Respiratory rate 16 /min MD Eros Mast Work Phone: [facility] 12-21-2021 17:00-0400 SaO2% (BldA) [Mass fraction] 100 % MD Eros Mast Work Phone: [facility] 12-21-2021 17:00-0400 Systolic blood pressure 118 mm[Hg] MD Eros Mast Work Phone: [facility] 12-21-2021 15:35-0400 Body weight 118 mg MD Eros Mast Work Phone: [facility] 12-21-2021 14:57-0400 Body height 165.1 cm MD Eros Mast Work Phone: [facility] 12-21-2021 14:57-0400 Body mass index (BMI) [Ratio] 38.5 kg/m2 MD Eros Mast Work Phone: [facility] 12-21-2021 14:57-0400 Body weight 105 kg MD Eros Mast Work Phone: [facility] 12-21-2021 12:56-0400 Body temperature 98.4 [degF] MD Eros Mast Work Phone: [facility] 11-29-2021 14:51-0400 Diastolic blood pressure 84 mm[Hg] MD Eros Mast Work Phone: [facility] 11-29-2021 14:51-0400 Heart rate 80 /min MD Eros Mast Work Phone: [facility] 11-29-2021 14:51-0400 Respiratory rate 16 /min MD Eros Mast Work Phone: [facility] 11-29-2021 14:51-0400 SaO2% (BldA) [Mass fraction] 98 % MD Eros Mast Work Phone: [facility] 11-29-2021 14:51-0400 Systolic blood pressure 117 mm[Hg] MD Eros aMst Work Phone: [facility] 11-29-2021 12:45-0400 Body height 165.1 cm MD Eros Mast Work Phone: [facility] 11-29-2021 12:45-0400 Body mass index (BMI) [Ratio] 37.4 kg/m2 MD Eros Mast Work Phone: [facility] 11-29-2021 12:45-0400 Body weight 102.05 kg MD Eros Mast Work Phone: [facility] 11-29-2021 12:24-0400 Body temperature 97.9 [degF] MD Eros Mast Work Phone: [facility] Encounters Encounter Date Encounter Type Care Provider Facility Start: 02-02-2024 End: 02-02-2024 ambulatory Eros MAST Facility:[facility] Start: 02-02-2024 End: 02-02-2024 Patient encounter procedure Eros [facility] Start: 05-12-2023 End: 05-13-2023 ambulatory [facility] Start: 05-12-2023 Encounter for gynecological examination (general) (routine) without abnormal findings [facility] Start: 02-10-2023 End: 02-10-2023 ambulatory Shubham Olexa Other [place] Other Start: 02-10-2023 Postop follow up vis it related to original px Shubham Olexa [facility] Start: 02-10-2023 Telephone encounter Shubham Olexa [facility] Start: 01-07-2023 End: 01-07-2023 ambulatory Shubham Olexa Other [place] Other Start: 01-07-2023 Postop follow up vis it related to original px Shubham Olexa [facility] Start: 01-01-2023 End: 01-01-2023 ambulatory Sue Win Facility:[facility] Start: 12-31-2022 End: 12-31-2022 ambulatory Shubham Olexa Other [place] Other Start: 12-31-2022 Telephone encounter Shubham Rodrigues [facility] Start: 12-25-2022 End: 12-25-2022 ambulatory Sue Win Facility:[facility] Start: 12-25-2022 End: 12-25-2022 ambulatory MD Sue Win Work Phone: [facility] Work Phone: Start: 12-25-2022 End: 12-25-2022 Patient encounter procedure MD Sue Win Work Phone: [facility] Work Phone: Start: 12-19-2022 End: 12-19-2022 ambulatory Shubham Olexa Other [place] Other Start: 12-19-2022 Office outpatient vi sit 25 minutes Shubham Olexa [facility] Start: 11-25-2022 End: 11-25-2022 ambulatory Shubham Olexa Other [place] Other Start: 11-25-2022 Office outpatient ne w 45 minutes Shubham Olexa [facility] Start: 08-12-2022 End: 08-13-[address] EROS MAST Facility:[facility] Start: 07-22-2022 End: 07-22-2022 Patient encounter procedure E[facility] Start: 07-18-2022 End: 07-19-[address] EROS MAST Facility:[facility] Start: 05-15-2022 End: 05-16-[address] HARVEY BURCH Facility:[facility] Start: 03-27-2022 End: 03-28-[address] SUE WIN . Facility:[facility] Start: 12-21-2021 End: 12-21-2021 Admission to same day surgery center [facility] Start: 12-19-2021 End: 12-19-2021 Patient encounter procedure MD Eros Mast Work Phone: [facility] Start: 12-13-2021 End: 12-13-2021 Patient encounter procedure MD Eros Mast Work Phone: [facility] Start: 12-12-2021 End: 12-13-[address] SUE WIN . Facility:[facility] Start: 12-10-2021 End: 12-11-[address] EROS MAST Facility:[facility] Start: 11-29-2021 End: 11-29-2021 Admission to same day surgery center MD [facility] Start: 11-27-2021 End: 11-27-2021 Patient encounter procedure MD Eros Mast Work Phone: [facility] Start: 11-21-2021 End: 11-21-2021 Patient encounter procedure [facility] Start: 11-20-2021 End: 11-21-[address] EROS MAST Facility:[facility] Start: 11-13-2021 End: 11-13-[address] SUE WIN . Facility:[facility] Start: 10-03-2021 End: 10-04-[address] SUE WIN . Facility:[facility] Start: 03-05-2021 End: 03-05-2021 Patient encounter procedure Sue Win MD Work Phone: [facility] Start: 03-05-2021 End: 03-05-2021 Subsequent hospital visit by physician Sue Win MD Work Phone: [facility] Comment on above: Vaginal discharge; Women's annual routine gynecological examination Start: 02-25-2019 End: 02-25-2019 Subsequent hospital visit by physician Sue GANNON Laboratory Comment on above: Women's annual routi [...] MAST Dilation and curetta ge of uterus [facility] SARS Antigen (LFIA) MD Alejandro Mast Work Phone: Plan of Treatment Date Care Activity Detail Author Start: 03-20-2022 Screening for malign ant neoplasm of breast Breast cancer screen [facility] Start: 03-13-2022 End: 03-13-2022 Patient encounter procedure 03/13/2022 Office Visit Obstetrics and Gynecology Berhane Yang MD [address] [place] [id number] [facility] GYNECOLOG[facility] Start: 02-25-2022 Screening for malign ant neoplasm of cervix [facility] Start: 12-21-2021 End: 12-21-2021 [facility] Work Phone: Start: 12-21-2021 Cystoscopy OR Cysto/Retro/Stent/Stone /Holmium Laser (Left) [facility] Start: 12-21-2021 Diagnostic radiograp hy of abdomen XR [facility] Start: 12-21-2021 End: 12-21-2021 Admission to same day surgery center Departed Surgical Day Care [facility] [place] Start: 12-21-2021 Diagnostic radiograp hy of abdomen XR B [facility] Start: 12-19-2021 End: 12-19-2021 Patient encounter procedure Departed [facility] Start: 12-13-2021 End: 12-13-2021 [facility] Start: 11-29-2021 [facility] Work Phone: Start: 11-29-2021 [facility] Work Phone: Start: 02-23-2021 Cervical cancer screen Cervical canc er screen [place], [place] Start: 02-11-2021 COVID-19 Vaccine (3 - Pfizer booster) COVID-19 Vaccine (3 - Pfizer booster) [facility] Start: 02-28-2020 Breast cancer screen Breast cancer s creen [place], [place] Start: 03-27-2019 Influenza vaccination Flu vaccine (# 1) [place], [place] Comment on above: Postponed from 12/27 (Not Indicated) Start: 03-25-2019 Diabetes screen Diabetes screen [place], [place] Comment on above: Postponed from 07/08 (Not Indicated) Start: 03-25-2019 DTaP/Tdap/Td vaccine (1 - Tdap) DTaP/Tdap/Td vaccine (1 - Tdap) [place] Comment on above: Postponed from 07/08 (Patient Refused) Start: 03-25-2019 HIV screen HIV screen [place], [place] Comment on above: Postponed from 07/08 (Patient Refused) Start: 03-25-2019 Lipid screen Lipid screen [place], [place] Comment on above: Postponed from 07/08 (Not Indicated) Start: 2018 Colon cancer screen colonoscopy Colon cancer screen colonoscopy [place], [place] Start: 2018 Shingles Vaccine (1 of 2) Shingles Vaccine (1 of 2) [facility] Start: 2013 Screening for malign ant neoplasm of colon Colon cancer screen colonoscopy [facility] Start: 2008 Diabetes screen Diabetes screen [facility] Start: 2008 Lipid panel Lipid screen [facility] Start: 1998 Screening for malign ant neoplasm of cervix HPV (without or with Pap) [facility] Start: 07-09-1987 DTaP/Tdap/Td vaccine (1 - Tdap) DTaP/Tdap/Td vaccine (1 - Tdap) [facility] Start: 07-09-1983 HIV screening HIV screen [facility] Start: 1970 Hepatitis C screening Hepatitis C sc [facility] End: 03-05-2021 Culture, Genital [facility] Work Phone: Comment on above: 1 Occurrences starti ng 03/05/2021 until 03/05/2021 End: 02-25-2019 Cytopathology procedure, preparation of smear, genital source PAP SMEAR Lab Routine Women's Annual Routine Gynecological Examination 1 Occurrences starting 02/25/2019 until 02/25/2019 [place], [place] Comment on above: 1 Occurrences starti ng 02/25/2019 until 02/25/2019 End: 03-05-2021 Cytopathology procedure, preparation of smear, genital source PAP SMEAR Lab Routine Women's annual routine gynecological examination 1 Occurrences starting 03/05/2021 until 03/05/2021 [facility] Work Phone: Comment on above: 1 Occurrences starti ng 03/05/2021 until 03/05/2021 Patient Education Cystoscopy (DC) [facility] Work Phone: Patient referral [facility] Work Phone: Immunizations Immunization Date Immunization Notes Care Provider Monica abarcajavier 11-13-2021 SARS-CoV-2 (COVID-19 ) mRNA-1273 vaccine Eros MAST [facility] 09-29-2021 COVID-19 mRNA-1273 (Moderna) MD Eros Mast Work Phone: [facility] 02-08-2021 influenza virus vaccine, unspecified formulation Eros MAST [facility] 02-08-2021 Influenza, injectabl e, Madin Mary Canine Kidney, preservative free, quadrivalent Sue Wni MD Work Phone: [employer] Work Phone: 08-12-2020 COVID-19 mRNA-1273 (Moderna) MD Eros Mast Work Phone: [facility] 08-12-2020 COVID-19, Pfizer, PF , 30mcg/0.3mL Sue Win MD Work Phone: [employer] 07-17-2020 SARS-CoV-2 (COVID-19 ) mRNA-1273 vaccine Eros MAST [facility] 07-15-2020 COVID-19 mRNA-1273 (Moderna) MD Eros Mast Work Phone: [facility] 07-15-2020 COVID-19, Pfizer, PF , 30mcg/0.3mL Sue Win MD Work Phone: [employer] Work Phone: 05-03-2020 influenza virus vaccine, unspecified formulation Eros MAST [facility] 05-03-2020 Influenza, injectabl e, Madin Mary Canine Kidney, preservative free, quadrivalent Sue Win MD Work Phone: [employer] Work Phone: 02-08-2020 pneumococcal conjuga te vaccine, 13 valent Sue Win MD Work Phone: [employer] Work Phone: Payers Date Payer Category Payer Self-pay 2019 Unknown [employer] [address] xxxxxxxx 2019-Present [phone] [address] [place] [address] xxxxxxxx [id number] 1970 Unknown [id number] 1970 Unknown [id number] 1968 Unknown [id number] [id number] 1968 Unknown [id number] [id number] 1968 Unknown [id number] [id number] 1968 Unknown [id number] [id number] 1968 Unknown [id number] [id number] 1968 Unknown [id number] [id number] 1968 Unknown [id number] [id number] 1968 Unknown [id number] [id number] 1970 Unknown [id number] [id number] 1959 Unknown [id number] Unknown [id number] [id number] Unknown [id number] Social History Date Type Detail Facility Start: 02-25-2019 End: 02-02-2024 Tobacco smoking status NHIS [facility] smoker [facility] [place] Start: 02-25-2019 Alcohol intake Yes [employer] [place], [place] Start: 1970 Sex Assigned At Not on file M [place], [place] Start: 07-30-2012 Tobacco use and exposure Smokeless tobacco non-user [employer] Phone: Start: 03-05-2021 Alcohol intake Current drinke r of alcohol (finding) [employer] Phone: Tobacco smoking status Never [facility] [employer] Start: 1970 Sex Assigned At Female F [facility] Goals Date Patient Goal Desired Activity /State Functional Status Date Assessment Result Facility 02-02-2024 Functional Status N/A [facility] 07-22-2022 Functional Status N/A [facility] 11-21-2021 Functional Status N/A [facility] [employer] Clinical Notes 10-03-2021 to 02-02-2024 Note Date & Type Note Facility 02-02-2024 Hospital Discharg e instructions Patient Education 02/02/2024 07:58:03 Dietary Guidelines to Help Prevent Kidney Stones Dietary Guidelines to Help Prevent Kidney Stones Kidney stones are deposits of minerals and salts that form inside your kidneys. Your risk of developing kidney stones may be greater depending on your diet, your lifestyle, the medicines you take, and whether you have certain medical conditions. Most people can lower their risks of developing kidney stones by following these dietary guidelines. Your dietitian may give you more specific instructions depending on your overall health and the type of kidney stones you tend to develop. What are tips for following this plan? Reading food labels Choose foods with no salt added or low-salt labels. Limit your salt (sodium) intake to less than 1,500 mg a day. Choose foods with calcium for each meal and snack. Try to eat about 300 mg of calcium at each meal. Foods that contain 200 500 mg of calcium a serving include: ?8 oz (237 mL) of milk, njaghdn-abvqevoqgaph-smscd milk, and calcium-fortifiedfruit juice. Calcium-fortified means that calcium has been added to these drinks. ?8 oz (237 mL) of kefir, yogurt, and soy yogurt. ?4 oz (114 g) of tofu. ?1 oz (28 g) of cheese. ?1 cup (150 g) of dried figs. ?1 cup (91 g) of cooked broccoli. ?One 3 oz (85 g) can of sardines or mackerel. Most people need 1,000 1,500 mg of calcium a day. Talk to your dietitian about how much calcium is recommended for you. Shopping Buy plenty of fresh fruits and vegetables. Most people do not need to avoid fruits and vegetables, even if these foods contain nutrients that may contribute to kidney stones. When shopping for convenience foods, choose: ?Whole pieces of fruit. ?Pre-made salads with dressing on the side. ?Low-fat fruit and yogurt smoothies. Avoid buying frozen meals or prepared deli foods. These can be high in sodium. Look for foods with live cultures, such as yogurt and kefir. Choose high-fiber grains, such as whole-wheat breads, oat bran, and wheat cereals. Cooking Do not add salt to food when cooking. Place a salt shaker on the table and allow each person to add their own salt to taste. Use vegetable protein, such as beans, textured vegetable protein (TVP), or tofu, instead of meat in pasta, casseroles, and soups. Meal planning Eat less salt, if told by your dietitian. To do this: ?Avoid eating processed or pre-made food. ?Avoid eating fast food. Eat less animal protein, including cheese, meat, poultry, or fish, if told by your dietitian. To do this: ?Limit the number of times you have meat, poultry, fish, or cheese each week. Eat a diet free of meat at least 2 days a week. ?Eat only one serving each day of meat, poultry, fish, or seafood. ?When you prepare animal proteins, cut pieces into small portion sizes. For most meat and fish, one serving is about the size of the palm of your hand. Eat at least five servings of fresh fruits and vegetables each day. To do this: ?Keep fruits and vegetables on hand for snacks. ?Eat one piece of fruit or a handful of berries with breakfast. ?Have a salad and fruit at lunch. ?Have two kinds of vegetables at dinner. You may be told to limit foods that are high in a substance called oxalate. These include: ?Spinach (cooked), rhubarb, beets, sweet potatoes, and Greenlandic chard. ?Peanuts. ?Potato chips, indonesian fries, and baked potatoes with skin on. ?Nuts and nut products. ?Chocolate. If you regularly take a diuretic medicine, make sure to eat at least 1 or 2 servings of fruits or vegetables that are high in potassium each day. These include: ?Avocado. ?Banana. ?Gordon, prune, carrot, or tomato juice. ?Baked potato. ?Cabbage. ?Beans and split peas. Lifestyle Drink enough fluid to keep your urine pale yellow. This is the most important thing you can do. Spread your fluid intake throughout the day. If you drink alcohol: ?Limit how much you have to: ?0 1 drink a day for women who are not . ?0 2 drinks a day for men. ?Know how much alcohol is in your drink. In the [place] one drink equals one 12 oz bottle of beer (355 mL), one 5 oz glass of wine (148 mL), or one 1 oz glass of hard liquor (44 mL). Lose weight if told by your health care provider. Work with your dietitian to find an eating plan and weight loss strategies that work best for you. General information Talk to your health care provider and dietitian about taking daily supplements. Depending on your health and the cause of your kidney stones, you may be told: ?Do not take high-dose supplements of vitamin C (1,000 mg a day or more). ?To take a calcium supplement. ?To take a daily probiotic supplement. ?To take other supplements such as magnesium, fish oil, or vitamin B6. Take cfrp-zsb-fgcxwgc and prescription medicines only as told by your health care provider. These include supplements. What foods should I limit? Limit your intake of the following foods, or eat them as told by your dietitian. Vegetables Spinach. Rhubarb. Beets. Canned vegetables. Pickles. Olives. Baked potatoes with skin. Grains Wheat bran. Baked goods. Salted crackers. Cereals high in sugar. Meats and other proteins Nuts. Nut butters. Large portions of meat, poultry, or fish. Salted, precooked, or cured meats, such as sausages, meat loaves, and hot dogs. Dairy Cheeses. Beverages Regular soft drinks. Regular vegetable juice. Seasonings and condiments Seasoning blends with salt. Salad dressings. Soy sauce. Ketchup. Barbecue sauce. Other foods Canned soups. Canned pasta sauce. Casseroles. Pizza. Lasagna. Frozen meals. Potato chips. St Lucian fries. The items listed above may not be a complete list of foods and beverages you should limit. Contact a dietitian for more information. What foods should I avoid? Talk to your dietitian about specific foods you should avoid based on the type of kidney stones you have and your overall health. Fruits Grapefruit. The item listed above may not be a complete list of foods and beverages you should avoid. Contact a dietitian for more information. Summary Kidney stones are deposits of minerals and salts that form inside your kidneys. You can lower your risk of kidney stones by making changes to your diet. The most important thing you can do is drink enough fluid. Drink enough fluid to keep your urine pale yellow. Talk to your dietitian about how much calcium you should have each day, and eat less salt and animal protein as told by your dietitian. This information is not intended to replace advice given to you by your health care provider. Make sure you discuss any questions you have with your health care provider. Document Revised: 07/25/2022 Document Reviewed: 07/25/2022 Elsevier Patient Education 2023 Draft. Follow Up Care 01/27/2023 08:34:01 With:KEZIA ARREGUIN, Eros Mckeon, URL Address: [address] [place] [address]- When: Unknown [facility] 02-02-2024 Note Patient Education Nephrology Dietary Guidelines to Help Prevent Kidney Stones Kidney stones are deposits of minerals and salts that form inside your kidneys. Your risk of developing kidney stones may be greater depending on your diet, your lifestyle, the medicines you take, and whether you have certain medical conditions. Most people can lower their risks of developing kidney stones by following these dietary guidelines. Your dietitian may give you more specific [...] ? 8 oz (237 mL) of milk, doupiee-dcvvycgbsftv-eqdaf milk, and calcium-fortifiedfruit juice. Calcium-fortified means that calcium has been [...] table and allow each person to add their own salt to taste. ? Use vegetable [...] or seafood. ? When you prepare animal proteins, cut pieces into small portion sizes. For [...] two kinds of vegetables at dinner. ? You may be told to limit foods that are high in a substance called oxalate. These include: ? Spinach (cooked), rhubarb, beets, sweet potatoes, and Greenlandic chard. ? Peanuts. ? Potato chips, indonesian fries, and baked potatoes with skin on. ? Nuts and nut products. ? Chocolate. ? If you regularly take a diuretic medicine, make sure to eat at least 1 or 2 servings of fruits or vegetables that are high in potassium each day. These include: ? Avocado. ? Banana. ? Gordon, prune, carrot, or tomato juice. ? Baked potato. ? Cabbage. ? Beans and split peas. Lifestyle ? Drink enough fluid to keep your urine pale yellow. This is the most important thing you can do. Spread your fluid intake throughout the day. ? If you drink alcohol: ? Limit how much you have to: ? 0?1 drink a day for women who are not . ? 0?2 drinks a day for men. ? Know how much alcohol is in your drink. [...] provider and dietitian about taking daily supplements. Depending on your health and the cause of your kidney stones, you may be told: ? Do not take high-dose supplements of vitamin C (1,000 mg a day or more). ? To take a calcium supplement. ? To take a daily probiotic supplement. ? To take other supplements such as magnesium, fish oil, or vitamin B6. ? Take wszi-bta-nbvfetv and prescription medicines only as told by your health care provider. These include suppleme (more content not included)... [facility] 02-10-2023 Evaluation note Encounter Date Diagnosis Assessment [...] Other specified postprocedural states (ICD-10 - Z98.890) [facility] Other 09-12-2023 Evaluation note* Encounter Date Diagnosis [...] Other specified postprocedural states (ICD-10 - Z98.890) [facility] Other 09-05-2023 Evaluation note* Encounter Date Diagnosis Assessment Notes Treatment Notes Treatment Clinical Notes Dec, Other specified postprocedural states (ICD-10 - Z98.890) [facility] Other 08-24-2023 Evaluation note* Encounter Date Diagnosis [...] right knee, subsequent encounter (ICD-10 - S83.241D) [facility] Other 07-31-2023 Evaluation note* Encounter Date Diagnosis [...] Pain in left knee (ICD-10 - M25.562) [facility] Other 03-27-2023 Hospital Discharge instructions Patient Education 07/22/2022 10:14:42 Kidney Stones, Xwts-jf-Llpm Kidney Stones Kidney stones are rock-like masses [...] Follow these instructions at home: Medicines Take lapu-yqj-bqvqciy and prescription medicines only as told by [...] 09/30/2008 Document Revised: 08/31/2019 Document Reviewed: 08/31/2019 [employer] Patient Education 2020 [employer] Follow Up Care 12/26/2021 13:33:59 With:KEZIA ARREGUIN, Eros Mckeon, URL Address: [address] [place] [address]- When:01/22/2023 Comments:ANNAMARIE [facility] 07-27-2022 Hospital Discharge instructions Patient Education 11/21/2021 12:49:44 Kidney Stones, Rqms-oj-Qqjw Kidney Stones Kidney stones are rock-like masses [...] Follow these instructions at home: Medicines Take dpyw-mhi-lvonrvn and prescription medicines only as told by [...] 09/30/2008 Document Revised: 08/31/2019 Document Reviewed: 08/31/2019 [employer] Patient Education 2019 Draft. Follow Up Care 11/14/2021 08:29:10 With:KEZIA ARREGUIN, Eros Mckeon, URL Address: [facility] [employer] [address] [place], [place] [id number]- When: Unknown [facility] 07-19-2022 NoteOPERATIVE NOTE OPERATION DATE: 11/13/2021 [...] placed per urethra. A well lubricated, 22 St Lucian cystourethroscope was passed into the bladder. Moderately tight at the bladder neck. Once into the bladder, teran endoscopy reveals no tumors or stones or diverticula. She does have a moderate cystocele present. Left retrograde pyelogram was then performed utilizing a 6 [place] Lucian open ended ureteral catheter. The distal ureter [...] and then over the wire a 4.8 St Lucian, 22-30 cm Microvasive double J stent was [...] procedure well. She was transferred to the [facility] and then back to PACU in satisfactory [...] the plan. CC: Sue Win M.D. : [facility] Signed and Approved by: DR EROS MAST 11/29/2021 08:56:00[facility]06-08-2022 NotePROCEDURE: XR KNEE RT 4V or > COMPARISON: None. HISTORY: Pain in right knee FINDINGS: BONES:No acute fracture or dislocation. Mild osteoarthritis with marginal osteophyte formation SOFT TISSUES:Negative. No visible soft tissue swelling. EFFUSION:None visible. OTHER: Negative. IMPRESSION: Mild osteoarthritis Electronically authenticated by: KODY GARRISON Date: 2021-10-03 [facility] No data available for this section [facility] Evaluation + Plan note Future Appointments Appointment Date:01/27/2023 08:00:00 AM Scheduled Provider:Eros MAST MD Location:[facility] Appointment Type:URO Office Visit [facility] Evaluation note* Diagnosis Vaginal discharge Leukorrhea, not specified as infective Women's annual routine gynecological examination documented in this encounter [facility] [employer] Work Phone: evaluation noteNo assessment information available [facility] Work Phone: Evaluation noteNo [facility]Barn[facility] Other History general Narrative - Reported* Type Description Date Medical History GERD Medical History Hypothyroidism [facility] Other History general Narrative - Reported* Type Description Date Medical History GERD Medical History Hypothyroidism Surgical History 1. LEFT knee arthros copy with partial medial meniscectomy 2. Chondral debridement medial femoral condyle, medial tibial plateau, medial patellar facet [facility] Other Progress note No data available for this section [facility] Assessments Diagnosis Women's annual routine gynecological examination Advance Directives Documents on File Type Date Recorded Patient Evp Operations Expl anation Advance Directives and Living Will Power of Fire Controlman Documents on File Type Date Recorded Patient Evp Operations Expl anation ACP-Advance Directive ACP-Power of Fire Controlman Advance Directive Response Recorded Date/ Time Advance [...] Care Teams (unrecognized sec tion and content) Personnel Name: Sue Win MD Address: Address: [address] [place] [address] Care Transition Manager Relationship Specialty Start Date End Date Sue Win MD [address] [place] [address] PCP - General Family Medicine 01/16/16 Team Status: Inactive Member Role Status Dates Sue Win MD Primary Care Provider Active Eros aMst MD Attending Provider Active Team Status: Inactive [...] section and content) DATE CREATED AUTHOR 08/18/2022 [facility] DATE CREATED AUTHOR AUTHOR'S ORGANIZ ATION 02/07/2023 [facility] DATE CREATED AUTHOR AUTHOR'S ORGANIZ ATION 05/29/2023 [facility] DATE CREATED AUTHOR AUTHOR'S ORGANIZ ATION 02/04/2024 [facility] REASON FOR VISIT (unrecogniz ed [...] BE BASED ON THE PRIMARY CLINICAL RECORDS. [facility] [employer] [facility]. provides no warranty or guarantee of the accuracy or completeness of information in this document.
== END 2024-02-17 07:23 | disposition home or self-care (01) ==
LOC: RAD 07:22
PROVIDERS: PCP Family Medicine; Visit Provider Family Medicine
DX: R07.89 Other chest pain (principal); R92.8 Other abnormal and inconclusive findings on diagnostic imaging of breast
CPT/HCPCS: 71046; 76642

== ENCOUNTER 2024-02-24 12:54 | Outpatient (OUT) | payer OTHER, SELFPAY ==
--- NOTE | 2024-02-24 12:56 | MM_ITS ---
Patient Name: KAROL MARCOS MR#: [id number] : 1970 Exam Date: 02/24/2024 Ordering Doctor: DR Neymar Win . RADIOLOGY REPORT PROCEDURE: MM TOMOSYNTHESIS DIAGNOSTIC BI COMPARISON: US BREAST LT LIMITED, 02/17/2024. MM TOMOSYNTHESIS DIAGNOSTIC RT, 10/16/2023. MM DIAGNOSTIC MAMMO UNILAT RT, 05/13/2023. MM TOMOSYNTHESIS SCREENING BI, 04/30/2023. MG MAMM SCREEN 3D ANN-MARIE CAD, 03/27/2022. INDICATIONS: left breast pain, abnormal breast ultrasound Calculator Name NCI Breast Cancer Risk Assessment Tool 5 Year Breast Cancer Risk 2.00% Lifetime Breast Cancer Risk 13.30% Personal Breast Cancer No Personal Ovarian Cancer No Treatments None Family Cancers Father with bone & prostate cancer at age 69. LOCATION: The [facility] BREAST COMPOSITION: The breasts are heterogeneously dense,which may obscure small masses. FINDINGS: DIAGNOSTIC CATEGORY 2--BENIGN FINDING: RIGHT BREAST: No significant suspicious finding. Scattered benign-appearing lymph nodes are present. Scattered benign-appearing calcifications are present. Stable asymmetric fibroglandular tissue posterior upper-outer quadrant. No significant change has occurred. LEFT BREAST: No significant suspicious finding. No significant change has occurred. No abnormal findings to correspond to prior ultrasound study where there was minimally dilated subareolar ducts. Annual screening mammography is recommended. RECOMMENDATIONS: ROUTINE MAMMOGRAM AND CLINICAL EVALUATION IN 12 MONTHS. PLEASE NOTE: A NORMAL MAMMOGRAM DOES NOT EXCLUDE THE POSSIBILITY OF BREAST CANCER. A CLINICALLY SUSPICIOUS PALPABLE LUMP SHOULD BE BIOPSIED. Dictated by: Tucker English M.D. on 02/24/2024 at 13:34 Approved by: Tucker English M.D. on 02/24/2024 at 14:30
== END 2024-02-24 12:55 | disposition home or self-care (01) ==
LOC: MAMMO 12:54
PROVIDERS: PCP Family Medicine; Visit Provider Family Medicine
DX: R92.8 Other abnormal and inconclusive findings on diagnostic imaging of breast (principal); Z80.42 Family history of malignant neoplasm of prostate; Z80.8 Family history of malignant neoplasm of other organs or systems
CPT/HCPCS: 77066; G0279

== ENCOUNTER 2024-11-14 07:30 | Emergency (ER) | payer OTHER, SELFPAY ==
--- OUTSIDE RECORDS SUMMARY | 2024-02-17 12:33 | XMS_ITS ---
Author Organization [facility] [place] Address [address] [place] [address] Care Team Providers Care Calcine Furnace Loader Name Role Phone Orion Win Primary Care Provider [phone] REASON FOR VISIT Chest results Encounters Encounter Location Date Provider Diagnosis [address] [address] 02/17/2024 Orion Win Plan Of Treatment No Information Progress Notes * Tamra MARCOS ADOB:[birth year] (53 yo F)Acc No.[id number]:02/17/2024 Patient: Celia VEGATamra :1970 A ge:53 Y S ex:Female Address:[facility] [place], [address] * true * Date: Generated for Jason reeves/Pearl/eTransmitting on: 0 11/14/2024 07:49 AM EDT
--- OUTSIDE RECORDS SUMMARY | 2024-02-24 16:58 | XMS_ITS ---
Author Organization [facility] in [place] Address [address] [place] [address] Care Team Providers Care Outside Solar Sales Consultant Name Role Phone MitchelterranceOrion Primary Care Provider Camille Perez Unavailable [phone] REASON FOR VISIT Mammogram Results Encounters Encounter Location Date Provider Diagnosis [facility] [address] [facility] [place] [address] 02/24/2024 Camille Perez Plan Of Treatment No Information Progress Notes * Tamra MARCOS ADOB:[birth year] (53 yo F)Acc No.[id number]:02/24/2024 Patient: Tamra CARLTON :1970 A ge:53 Y S ex:Female Address:[facility] [address] [place] [place], [address] * true * Date: Generated for Syedai leandro/Fajuan luisg/eTransmitting on: 0 11/14/2024 07:48 AM EDT
--- OUTSIDE RECORDS SUMMARY | 2024-06-24 11:45 | XMS_ITS ---
Author Organization [facility] in [place] Address [address] [place] [address] Care Team Providers Care Housekeeping Lead Name Role Phone Orion Win Primary Care Provider [phone] Allergies No Known Allergies Results Component Value Reference Range Notes UA DIP NONAUTO WO MICRO (810 02) - IN OFFICE (Not yet reviewed by provider) Interpretation: Performing Lab: Notes/Report: COLOR orange CLARITY clear GLUCOSE neg BILIRUBIN neg KETONE neg SPECIFIC GRAVITY 1.005 BLOOD trace PH 5 PROTEIN trace UROBILINOGEN neg NITRITE neg LEUKOCYTE ESTERASE large REASON FOR VISIT uti- last night have chills and then sweats- no fever- orange colored urine- pain in the lower right ABD into the back Medications Medication SIG (Take, Route, Frequency, Duration) Notes Start Date End Date Status Cefdinir 300 MG 2 capsule Orally onc e a day for 10 days 06/24/2024 Active Lisinopril 20 MG 1 tablet Orally Once a day for 30 days Active Liothyronine Sodium 5 MCG 1 tablet on an empty stomach Orally Once a day for 30 days 09/03/2023 Active Levothyroxine Sodium 50 MCG 1 tab oral q day for 30 days Active Pyridium 200 MG 1 tablet after meals Orally Three times a day for 2 days 06/24/2024 Active Dicyclomine HCl 20 MG TAKE 1 TABLET BY M OUTH TWICE A DAY for 90 Active Diclofenac Sodium 75 MG TAKE 1 TABLET BY MOUTH TWICE A DAY for 30 PRN Active [facility] Esomeprazole Magnesium 20 MG TAKE 2 CAP Orally Once a day for 21 days Active Social History Tobacco Use: Social History Observation Description Date Details (start date - stop date) Never Smoker NA - NA Tobacco Use/Smoking Question Answer Notes Patient is a nonsmoker Vital Signs Temperature 98.1 degrees Fahrenheit 06/24/19 25 Blood pressure systolic 108 mm Hg 06/24/19 25 Blood pressure diastolic 72 mm Hg 025 Height 65 in 06/24/2024 Weight 240.4 lbs 06/24/2024 BMI 40 kg/m2 06/24/2024 Encounters Encounter Location Date Provider Diagnosis [facility] [address] [place] [address] 06/24/2024 Orion Hoy Right flank pain R10 .9 ; UTI (urinary tract infection), uncomplicated N39.0 and Dysuria R30.0 Assessments Encounter Date Diagnosis (ICD Code) Assessment Notes Treatment Notes Treatment Clinical Notes Section Notes 06/24/2024 Right flank pain (ICD-10 - R10.9) 06/24/2024 UTI (urinary tract infection), uncomplicated (ICD-10 - N39.0) Drink plenty of water. Avoid drinks like coffee, alcohol and soft frinks, as these can irritate your bladder and aggravate your frequent or urgent need to urinate. Apply a warm heating pad to your abdomen to minimize bladder pressure or discomfort. You have been prescribed antibiotics for a urinary tract infection. Antibiotics may bother your stomach, so try taking them with a light meal (unless instructed otherwise by your pharmacist). It is important to take them until they are finished. You can use dymj-lqa-uaumlig acetaminophen or ibuprofen if needed for pain. You should follow up with your Primary Care Physician or return to clinic if not improving in the next 3-5 days. 06/24/2024 Dysuria (ICD-10 - R30.0) Plan Of Treatment Medication Medication Name Sig Start Date Stop Date Notes Cefdinir 300 MG 2 capsule Orally once a day for 10 days Pyridium 200 MG 1 tablet after meals Orally Three times a day for 2 days 06/24/2024 Treatment Notes Assessment Notes UTI (urinary tract infection ), uncomplicated Drink plenty of water. Avoid drinks like coffee, alcohol and soft frinks, as these can irritate your bladder and aggravate your frequent or urgent need to urinate. Apply a warm heating pad to your abdomen to minimize bladder pressure or discomfort. You have been prescribed antibiotics for a urinary tract infection. Antibiotics may bother your stomach, so try taking them with a light meal (unless instructed otherwise by your pharmacist). It is important to take them until they are finished. You can use jkqf-vfy-wwkiqzf acetaminophen or ibuprofen if needed for pain. You should follow up with your Primary Care Physician or return to clinic if not improving in the next 3-5 days. Pending Test Test Name Order Date UA DIP NONAUTO WO MICRO (81988) - IN OFF ICE 06/24/2024 Next Appt Details Follow Up: 3-5 days if no im provement, Reason: Progress Notes * Tamra MARCOS ADOB:[birth year] (53 yo F)Acc No.[id number]:06/24/2024 Nurse Visit Patient: Tamra CARLTON Provider: Allyssa Win ([facility])MD :1970 A ge:53 Y S ex:Female Date:06/24/2024 Address:[facility] [address] Check In:03:42 PM ESTCheck O ut:04:22 PM EST Subjective: * Chief Complaints: * u ti- last night have chills and then sweats- no fever- orange colored urine- pain in the lower right ABD into the back * HPI: D epression Screening: PHQ-2 (2015 Edition) L ittle interest or pleasure in doing things?�Not at all F eeling down, depressed, or hopeless? N ot at all T otal Score 0 Not feelign like kidney stone - feverish and chills. U TI: The patient complains of s ymptoms of UTI. The symptoms have been present for 1 -2 days. The symptoms are m oderate. Symptomatic treatment has included O TC Medication. Associated symptoms include i ncreased urge to urinate, painful urination, pelvic pain. * ROS: G eneral/Constitutional: Malaise d enies. C hills d enies. F ever d enies. S kin: Rash d enies. C ardiovascular: Edema d enies. P alpitations d enies. � R espiratory: Chest pain d enies. C ough d enies. � G astrointestinal: Abdominal pain d enies. N ausea d enies. V omiting d enies. G enitourinary: Comments S [facility] for details. S kin: Rash d enies. * Active Problem List M54.5 Low back pain Modified On:10/06/2022 Status:confirmed L30.9 Eczema Modified On:10/06/2022 Status:confirmed E04.1 Thyroid nodule Modified On:10/06/2022 Status:confirmed J30.2 Seasonal allergic rh initis Modified On:10/06/2022U Status:confirmed E04.2 Multinodular goiter Modified On:10/06/2022U Status:confirmed K57.30 Diverticula of intes shekhar Modified On:10/06/2022 Status:confirmed N28.1 Renal cyst Modified On:10/06/2022 Status:confirmed K21.9 Gastric reflux Modified On:10/06/2022 Status:confirmed Z00.00 Well adult Modified On:10/07/2022 Status:confirmed G89.29 Other chronic pain Modified On:11/15/2022U Status:confirmed M17.12 Unilateral primary o steoarthritis, left knee Modified On:11/18/2022U Status:confirmed S83.232A Complex tear of medi al meniscus, current injury, left knee, initial encounter Modified On:12/13/2022 Status:confirmed E03.9 Hypothyroidism, unsp ecified Modified On:09/03/2023 Status:confirmed I10 Hypertension Modified On:11/21/2023U Status:confirmed R07.9 Chest pain Modified On:11/21/2023U Status:confirmed R07.89 Chest wall pain Modified On:02/11/2024U Status:confirmed * Medical History: * Surgical History: C ystoscopy with stent removal Lithotripsy EGD/Colonoscopy 08/26/2018 * Hospitalization/Major Diagno stic Procedure: D enies Past Hospitalization * Family History: F ather: , CABG, Prostate Ca, diagnosed with Other malignant neoplasm of unspecified site, Unspecified heart disease. M other: alive, A-fib, hyperlipidemia, blood clotting disorder, diagnosed with Unspecified heart disease. B yunger(s): alive, IBS. S on(s): alive. D aughter(s): alive. 1 brother(s) . 1 son(s) , 1 daughter(s) - healthy. . * Social History: T obacco Use: T obacco Use/Smoking P atient is a n onsmoker * Medications: T aking[facility] Esomeprazole Magnesium(Esomeprazole Magnesium) 20 MG Capsule Delayed Release TAKE 2 CAP Orally Once a day Diclofenac Sodium 75 MG Tablet Delayed Release TAKE 1 TABLET BY MOUTH TWICE A DAY , Notes to Pharmacist: PRNDicyclomine HCl 20 MG Tablet TAKE 1 TABLET BY MOUTH TWICE A DAY Levothyroxine Sodium 50 MCG Tablet 1 tab oral q day Liothyronine Sodium 5 MCG Tablet 1 tablet on an empty stomach Orally Once a day Lisinopril 20 MG Tablet 1 tablet Orally Once a day Taking [facility] Esomeprazole Magnesium(Esomeprazole Magnesium) 20 MG Capsule Delayed Release TAKE 2 CAP Orally Once a day Taking Diclofenac Sodium 75 MG Tablet Delayed Release TAKE 1 TABLET BY MOUTH TWICE A DAY , Notes to Pharmacist: PRNTaking Dicyclomine HCl 20 MG Tablet TAKE 1 TABLET BY MOUTH TWICE A DAY Taking Levothyroxine Sodium 50 MCG Tablet 1 tab oral q day Taking Liothyronine Sodium 5 MCG Tablet 1 tablet on an empty stomach Orally Once a day Taking Lisinopril 20 MG Tablet 1 tablet Orally Once a day DiscontinuedDaypro(Oxaprozin) 600 MG Tablet 2 tablets Orally daily Hyoscyamine Sulfate 0.125 MG Tablet 1 tablet as needed Orally every 4 hrs , Notes to Pharmacist: PRNMedication List reviewed and reconciled with the patientDiscontinued Daypro(Oxaprozin) 600 MG Tablet 2 tablets Orally daily Discontinued Hyoscyamine Sulfate 0.125 MG Tablet 1 tablet as needed Orally every 4 hrs , Notes to Pharmacist: PRNMedication List reviewed and reconciled with the patient * Allergies: N .K.D.A.no[Allergies Verified] Objective: * Vitals: W t:240.4lbs, Ht: 65 in, BP:108/72mm Hg, Temp:98.1F, BMI:40Index, Ht-cm: 165.1 cm, Wt-k.04 kg. * Examination: G eneral Examination: GENERAL APPEARANCE: w ell developed, well nourished, in no acute distress. ENT: ear and nose external appearance normal. ENMT: tongue, hard and soft palate and posterior pharynx appear normal. LYMPH NODES: n o axillary, supraclavicular or inguinal adenopathy. LUNGS: c lear to auscultation bilaterally. CARDIO: S 1, S2 normal, no murmurs, rubs, gallops. ABDOMEN: s oft, nontender, nondistended. GENITOURINARY: Bladder non-distended, urethra normal.� MUSCULOSKELETAL: full range of motion. SKIN: no rashes, warm and dry. NEUROLOGIC: alert and oriented to time, place, & person. PSYCH: mood/affect full range. Assessment: * Assessment: 1. R ight flank pain - R10.9 (Primary) 2 . U TI (urinary tract infection), uncomplicated - N39.0 3 . D ysuria - R30.0 Plan: * Treatment: 2. U TI (urinary tract infection), uncomplicated Notes:Drink plenty of water. Avoid drinks like coffee, alcohol and soft frinks, as these can irritate your bladder and aggravate your frequent or urgent need to urinate. Apply a warm heating pad to your abdomen to minimize bladder pressure or discomfort. You have been prescribed antibiotics for a urinary tract infection. Antibiotics may bother your stomach, so try taking them with a light meal (unless instructed otherwise by your pharmacist). It is important to take them until they are finished. You can use nypq-glg-arqligy acetaminophen or ibuprofen if needed for pain. You should follow up with your Primary Care Physician or return to clinic if not improving in the next 3-5 days. * Labs: * L ab: UA DIP NONAUTO WO MICRO (99982) - IN OFFICE (Collection Date & Time - 06/24/2024) Value Reference Range C OLOR orange * C LARITY clear * G LUCOSE neg * B ILIRUBIN neg * K ETONE neg * S PECIFIC GRAVITY 1.005 * B LOOD trace * P H 5 * P ROTEIN trace * U ROBILINOGEN neg * N ITRITE neg * L EUKOCYTE ESTERASE large * Procedure Codes: 8 1000 URINALYSIS, Modifiers: QW 19687 URINALYSIS WO MICRO * Follow Up: 3 -5 days if no improvement * * Sign off status: Completed Visit Status: C HK (Check Out) true * Provider: Allyssa Win ([facility])MD Date: 0 06/24/2024 Generated for Jason reeves/Pearl/Mackenzieitting on: 0 11/14/2024 07:48 AM EDT History and Physical Notes * HPI (History of Present Illness) Category Sub-Category Detail Notes Category Not es Depression Screening PHQ-2 (2015 Edition) Little interest or pleasure in doing things?: Not at all Not feelign like kidney stone - feverish and chills Feeling down, depressed, or hopeless?: N ot at all Total Score: 0 UTI The patient complains of symptoms of UTI The symptoms have been present for 1-2 d ays The symptoms are moderate Symptomatic treatment has included OTC M edication Associated symptoms include increased ur ge to urinate, painful urination, pelvic pain Examination Category Sub-Category Detail Notes Category Not es General Examination GENERAL APPEARANCE: well dev eloped, well nourished, in no acute distress ENT: ear and nose externa l appearance normal CARDIO: S1, S2 normal, no mu rmurs, rubs, gallops LUNGS: clear to auscultatio n bilaterally ABDOMEN: soft, nontender, non distended NEUROLOGIC: alert and oriented t o time, place, & person SKIN: no rashes, warm and dry MUSCULOSKELETAL: full range of motion LYMPH NODES: no axillary, supracl avicular or inguinal adenopathy PSYCH: mood/affect full ran ge ENMT: tongue, hard and sof t palate and posterior pharynx appear normal GENITOURINARY: Bladder non-distende d, urethra normal
[2024-11-14 07:34] VITALS: BP 180/100; PULSE 82; TEMP 36.6; O2SAT 100; BMI 47.4
--- NOTE | 2024-11-14 07:41 | CT_ITS ---
[place] [id number] Patient Name: KAROL MRACOS MRN: [id number] date: 1970 Sex: F Assigned Patient Location: ER Current Patient Location: ED.MAIN Accession/Order Number: [id number] Exam Date: 11/14/2024 08:09 Report Date: 11/14/2024 08:12 At the request of: NIRAJ OHARA MD Procedure: CT abdomen pelvis wo con CT ABDOMEN AND PELVIS WITHOUT INTRAVENOUS CONTRAST: CLINICAL HISTORY: rt flank pain and hx of kidney stone COMPARISON: Abdominal x-ray 01/30/2024 TECHNIQUE: Spiral images were obtained through the abdomen and pelvis without intravenous contrast. This CT exam was performed using one or more following dose reduction techniques: Automated exposure control, adjustment of the mA and/or kV according to patient size, or use of iterative reconstruction technique. FINDINGS: Lung Bases: [Lung bases are clear] Organs:Right-sided hydronephrosis caused by a right ureteral pelvic junction calculus 5 mm x 7 mm in size. Right sided fat stranding adjacent the right renal pelvis. Left lower pole calculus, nonobstructive. Punctate right interpolar and upper pole calculi nonobstructive.. No left-sided hydronephrosis. Otherwise liver, gallbladder, spleen, adrenals, pancreas unremarkable.[ GI: Mild retained stool the colon. No bowel obstruction. Appendix unremarkable..[ Pelvis:[Bladder unremarkable. Uterus unremarkable. No adnexal Mass.] Peritoneum/Retroperitoneum:No free air or free fluid. Aorta mild plaque, nonaneurysmal. No bulky adenopathy.[ Abd wall/Bones:Degenerative change. No suspicious osseous lesion.[ CT/CT abdomen pelvis wo con IMPRESSION: 5 mm x 7 mm calculus right ureteral pelvic junction with adjacent haziness and hydronephrosis Additional bilateral calculi, nonobstructive. Impression dictated by: Kingsley Dawkins M.D. 11/14/2024 8:12 AM Dictation Location: [place] [address] Electronically authenticated by: [id number] Y Date: 11/14/2024 08:12
--- OUTSIDE RECORDS SUMMARY | 2024-11-14 07:46 | XMS_ITS | CCD ---
Author Organization [facility] Care Team Providers Care Casey Saw Operator Name Role Phone Sue Win Primary Care Provider Sue Win Primary Care Physician MD Jordi Mast Attending Provider MD Sue Win Primary Care Provider [phone] YAIMA ., DR ROGERS Consulting Unavailable HOY [...] Attending Unavailable TIMMIS, DR GABRIEL Admitting Unavailable ANDALUSIA, DR KODY Pappas Consulting Unavailable HOY ., [...] Unavailable YAIMA ., DR ROGERS Admitting Unavailable ANDALUSIA, DR KODY Pappas Consulting Unavailable MANNIE, DR JORDI Mckeon Consulting Unavailable YAIMA Thakkar, DR ROGERS Primary Care Unavailable MANNIE, DR JORDI Mckeon Attending Unavailable MANNIE, DR JORDI Mckeon Admitting Unavailable DAHIANA, DR ZENAIDA Martin Consulting Unavailable [place], DR JORDI Mckeon Consulting Unavailable YAIMA ., DR ROGERS Primary Care Unavailable MANNIE, DR JORDI Mckeon Attending Unavailable MANNIE, DR JORDI Mckeon Admitting Unavailable DAHIANA, DR ZENAIDA Martin Consulting Unavailable Shubham Rodrigues Unavailable MD Sue Win Primary Care Provider [phone] MD Shubham Rodrigues Attending Provider Sue Win Primary Care Unavailable Chase, Shubham Admitting Unavailable Olekarri, Shubham Attending Unavailable Sue Win Primary Care Unavailable Olekarri, Shubham Admitting Unavailable Olekarri, Shubham Attending Unavailable MANNIE, Jordi Mckeon Attending Unavailable Sue Win MD Primary Care Provider [phone] ROSAURA YANG Referring Unavailable SUE WIN Primary Care Unavailable Allergies Allergy Classification Reported Allergen(s) Allergy Type Date of Onset Reaction(s) Facility (1 source) No Known Medication Allergies; Translations: [No Known Medication Allergies] Propensity to adverse reactions (disorder) [facility] Repository Medications Current Medications Medication Drug Class(es) Dates Sig (Normalized) Sig (Original) acetaminophen 325 mg / HYDROcodone bitartrate 5 mg oral tablet (10 sources) Opioid Agonist Start: 12-31-2022 take 1 tablet by mouth every four hours as needed for pain HYDROcodone-Aceta minophen 5-325 MG 1 tablet as needed for pain Orally up to every 4 hrs for 5 days PB: [id number] Dec, Active Start: 11-29-2021 End: 12-13-2021 take [...] sodium 75 mg delayed release oral tablet (10 sources) Nonsteroidal Anti-inflammatory Drug Start: 11-29-2021 take 1 tablet by mouth twice daily diclofenac (VOLTAREN) 75 MG EC tablet TAKE 1 TABLET BY MOUTH TWICE A DAY 02/15/2022 Active Start: 01-19-2019 take 75 mg by mouth twice caden y diclofenac sodium 75 mg, Oral, BID Start Date: 01/19/19 Status: Ordered dicyclomine hydrochloride 20 mg oral tablet (18 sources) Anticholinergic Start: 11-21-2021 dicyclomine 20 mg Tab 20 mg = 1 tab(s) Start Date: 11/21/21 Status: Ordered Start: 11-03-2018 take 1 tablet by gee th three times daily before mealtime dicyclomine (BENTYL) 20 MG tablet TAKE 1 TABLET BY MOUTH 3 TIMES A DAY BEFORE MEALS 5 12/27/2018 Active esomeprazole 40 mg oral tablet (14 sources) Proton Pump Inhibitor Start: 12-13-2021 take [...] TAKE 2 CAPSULES BY MOUTH EVERY DAY 02/09/2020 Active Esomeprazole Mag nesium Active Phylicia [...] 12:00am levothyroxine sodium 0.05 mg oral tablet (18 sources) l-Thyrox ine Start: 02-07-2019 take 50 ug by mouth once daily in the morning Levothyroxine Active 50 MCG PO Every morning November 29, 2021 12:00am Start: 01-19-2019 take 1 tablet by gee th once daily levothyroxine 50 mcg (0.05 mg) Tab 50 microgram = 1 tab(s), Oral, Daily Start Date: 01/19/19 Status: Ordered liothyronine sodium 0.005 mg oral tablet (2 sources) l-Triiodothyronine Start: 05-20-2024 take 1 tablet by mouth once daily liothyronine (CYTOMEL) 5 MCG tablet TAKE 1 TABLET BY MOUTH EVERY DAY ON EMPTY STOMACH FOR 30 DAYS 05/20/2024 Active Start: 02-02-2024 liothyronine 5 mcg Tab Refills(s) 0 Start Date: 02/02/24 Status: Ordered lisinopril 20 mg oral tablet (2 sources) Angiotensin Converting Enzyme Inhibitor Start: 02-02-2024 lisinopril [...] 11-16-2021 Episodic Other aftercare (1 source) Other long term care phlebotomist (current) drug therapy; Translations: [OTH GENERAL INTERNIST AND PHYSICIAN LEADER CURRENT DRUG THERAPY] Onset: 07-22-2022 Episodic Other screening for suspected conditions (not [...] Value Interpretation Reference Range Facility Cytology Reporton 07-12-2024 Cytology report Cyto stain.thin prep Doc (Cvx/Vag) (NOTE) Path Number: [id number] DIAGNOSIS Imaged ThinPrep Pap - Cervical (1 monolayer slide): Specimen Adequacy: Satisfactory for evaluation. - Endocervical/transf ormation zone component present. Descriptive Diagnosis: Negative for intraepithelial lesion or malignancy. Cytotech Screener: EY Electronically Signed Out Margot Rand CT(ASCP) ey/07/26/2024 Source of Specimen: A: Imaged ThinPrep Pap - Cervical (1 monolayer slide) HPV Reflex?............ 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 [facility] Reminderson 02-02-2024 Reminders Reminders -- From: Glenys Zimmer To: EU - Administrative; Sent: 02/02/2024 08:26:12 EDT Show up: 05/30/2025 08:17:00 EST Subject: 18 mo appt Due Date/Time: 08/01/2025 08:17:00 EDT Reminder/Recall SCHEDULE KAROL PLASCENCIA IN [address] MAST [facility] Urology Office/Clinic Noteon 02-02-2024 Urology Office/Clinic Note Urology Office/Clinic Note Chief Complaint 1 year follow up HPI Staff 1 yr with [facility] Previous Dx: kidney stone. S/p litholink 08/12/22. [...] of lemonade. Follow-up With When Contact Information MANNIE ARREGUIN, Jordi Mckeon, URL [address] [place], [place] [id number]- Additional Instructions: 1.5 yrs with [facility] Patient Education Dietary Guidelines to Help Prevent Kidney Stones I, Manjula Sheikh, personally scribed for Dr. Mast on 02/02/2024 08:12:47. . Documentation recorded by the scribe, Manjula Sheikh, accurately reflects the services(s) I performed and decisions made by me. Authenticated by Dr. Mast on 02/02/2024 08:13:48. Portions of this record may have been created with voice recognition artificial intelligence software, specifically [employer], E [employer] Carte and or [employer] Gateway. Substitutions may have occurred due to the [...] mRNA-1273 vaccine (more content not included)... Normal [facility] Comment on above: Result Comment: Elec tronically Signed By: Jordi MAST MD P\.br\Date and Time Signed: 02/02/24 08:14 EDT\.br\Electronically Co-Signed By: Manjula Sheikh P\.br\Date and Time Co-Signed: 02/02/24 08:13 EDT Alanine aminotransferase [En zymatic activity/volume] in Serum or PlasmaOrdered By: Shubham Rodrigues on 12-25-2022 ALT [Catalytic activity/Vol] 27 U/L 7-[address] [facility] Albumin [Mass/volume] in Ser um or Plasma by Bromocresol green (BCG) dye binding methoOrdered By: Shubham Rodrigues on 12-25-2022 Albumin BCG dye [Mass/Vol] 3.9 g/dL 3.5-5.[address] [facility] Alkaline phosphatase [Enzyma tic activity/volume] in Serum or PlasmaOrdered By: Shubham Rodrigues on 12-25-2022 ALP [Catalytic activity/Vol] 138 U/L 34-[address] [facility] Aspartate aminotransferase [ Enzymatic activity/volume] in Serum or PlasmaOrdered By: Shubham Rodrigues on 12-25-2022 AST [Catalytic activity/Vol] 20 U/L 13-[address] [facility] Basophils Auto (Bld) [#/Vol] Ordered By: Shubham Rodrigues on 12-25-2022 Basophils (Bld) [#/Vol] 0.1 10*3/uL 0.0-0.[address] [facility] Basophils/100 WBC Auto (Bld) Ordered By: Shubham Rodrigues on 12-25-2022 Basophils/100 WBC (Bld) 0.8 % . [facility] Bilirubin.total [Mass/volume ] in Serum or PlasmaOrdered By: Shubham Rodrigues on 12-25-2022 Bilirubin [Mass/Vol] 0.4 mg/dL 0.3-1.0 [facility] CMP with reflex to A1Con Albumin [Mass/Vol] 3.9 g/dL Normal 3.5-5.7 [facility] Comment on above: Performed By: #### C BC, CMP wRFX A1C #### [facility] [address] [place] [address] Albumin/Globulin [Mass ratio] 1.4 {ratio} Normal [facility] Comment on above: Performed By: #### C BC, CMP wRFX A1C #### [facility] [address] [id number] [place] ALP [Catalytic activity/Vol] 138 U/L High 34-[address] [facility] Comment on above: Result Comment: PERF ORMED BY: [place] [address] PATHOLOGIST GETTER FILLER MULUGETA ANGLIN M.D. Performed By: #### C BC, CMP wRFX A1C #### [facility] [address] [id number] [place] ALT [Catalytic activity/Vol] 27 U/L Normal 7-[address] [facility] Comment on above: Performed By: #### C BC, CMP wRFX A1C #### [facility] [address] [place] [address] [place] Anion gap [Moles/Vol] 10.0 mmol/L Normal 6.0-15.0 [facility] Comment on above: Performed By: #### C BC, CMP wRFX A1C #### [facility] [address] [place] [address] [place] AST [Catalytic activity/Vol] 20 U/L Normal 13-[address] [facility] Comment on above: Performed By: #### C BC, CMP wRFX A1C #### [facility] [address] Bilirubin [Mass/Vol] 0.4 mg/dL Normal 0.3-1.0 [facility] Comment on above: Performed By: #### C BC, CMP wRFX A1C #### [facility] [address] [place] [address] [place] Calcium [Mass/Vol] 9.1 mg/dL Normal 8.6-10.3 [facility] Comment on above: Performed By: #### C BC, CMP wRFX A1C #### [facility] [address] [place] [address] [place] Chloride [Moles/Vol] 104 mmol/L Normal 98-107 [facility] Comment on above: Performed By: #### C BC, CMP wRFX A1C #### [facility] [address] [place] [address] [place] CO2 [Moles/Vol] 30.2 mmol/L Normal 21.0-31.0 [facility] Comment on above: Performed By: #### C BC, CMP wRFX A1C #### [facility] [address] [place] [address] [place] Creatinine [Mass/Vol] 0.69 mg/dL Normal 0.60-1.20 [facility] Comment on above: Performed By: #### C BC, CMP wRFX A1C #### [facility] [address] [place] [address] [place] GFR/1.73 sq M.predicted MDRD (S/P/Bld) [Vol rate/Area] mL/min/{1.73_m2} Normal [facility] Comment on above: Performed By: #### C BC, CMP wRFX A1C #### [facility] [address] [id number] [place] Globulin (S) [Mass/Vol] 2.8 g/dL Normal [facility] Comment on above: Performed By: #### C BC, CMP wRFX A1C #### [facility] [address] [place] [address] [place] Glucose [Mass/Vol] 99 mg/dL Normal 70-100 [facility] Comment on above: Performed By: #### C BC, CMP wRFX A1C #### [facility] [address] [place] [address] [place] Potassium [Moles/Vol] 4.2 mmol/L Normal 3.5-5.1 [facility] Comment on above: Performed By: #### C BC, CMP wRFX A1C #### [facility] [address] [place] [address] [place] Protein [Mass/Vol] 6.7 g/dL Normal 6.4-8.9 [facility] Comment on above: Performed By: #### C BC, CMP wRFX A1C #### [facility] [address] [id number] [place] Sodium [Moles/Vol] 140 mmol/L Normal 136-145 [facility] Comment on above: Performed By: #### C BC, CMP wRFX A1C #### [facility] [address] [id number] [place] Urea nitrogen [Mass/Vol] 18 mg/dL Normal 7-[address] [facility] Comment on above: Performed By: #### C BC, CMP wRFX A1C #### [facility] [address] [id number] [place] Calcium [Mass/volume] in Ser um or PlasmaOrdered By: Shubham Rodrigues on 12-25-2022 Calcium [Mass/Vol] 9.1 mg/dL 8.6-10.3 [facility] Carbon dioxide, total [Moles /volume] in Serum or PlasmaOrdered By: Shubham Rodrigues on 12-25-2022 CO2 [Moles/Vol] 30.2 mmol/L 21.0-31.0 [facility] Chloride [Moles/volume] in S gerry or PlasmaOrdered By: Shubham Rodrigues on 12-25-2022 Chloride [Moles/Vol] 104 mmol/L 98-107 [facility] Complete Blood Count Auto Di ffon 12-25-2022 Basophils (Bld) [#/Vol] 0.1 10*3/uL Normal 0.0-0.[address] [facility] Comment on above: Result Comment: PERF ORMED BY: [place] [address] PATHOLOGIST GETTER FILLER MULUGETA ANGLIN M.D. Performed By: #### C BC, CMP wRFX A1C #### [facility] [address] [place] [address] Basophils/100 WBC (Bld) 0.8 % Normal . [facility] Comment on above: Performed By: #### C BC, CMP wRFX A1C #### [facility] [address] [place] [address] [place] Eosinophils (Bld) [#/Vol] 0.2 10*3/uL Normal 0.0-0.[address] [facility] Comment on above: Performed By: #### C BC, CMP wRFX A1C #### [place] [address] [place] Eosinophils/100 WBC (Bld) 3.0 % Normal . [facility] Comment on above: Performed By: #### C BC, CMP wRFX A1C #### [facility] [address] [place] [address] [place] Erythrocyte distribution width (RBC) [Ratio] 14.4 % Normal 11.9-15.[address] [facility] Comment on above: Performed By: #### C BC, CMP wRFX A1C #### [facility] [address] [place] [address] [place] Hematocrit (Bld) [Volume fraction] 39.1 % Normal 34.0-46.[address] [facility] Comment on above: Performed By: #### C BC, CMP wRFX A1C #### [address] Hemoglobin (Bld) [Mass/Vol] 13.0 g/dL Normal 11.8-15.[address] [facility] Comment on above: Performed By: #### C BC, CMP wRFX A1C #### [address] Lymphocytes (Bld) [#/Vol] 1.5 10*3/uL Normal 1.00-4.[address] [facility] Comment on above: Performed By: #### C BC, CMP wRFX A1C #### [address] Lymphocytes/100 WBC (Bld) 22.8 % Normal . [facility] Comment on above: Performed By: #### C BC, CMP wRFX A1C #### [address] MCH (RBC) [Entitic mass] 28.9 pg Normal 24.7-34.[address] [facility] Comment on above: Performed By: #### C BC, CMP wRFX A1C #### [address] MCV (RBC) [Entitic vol] 86.9 fL Normal 80-100 [facility] Comment on above: Performed By: #### C BC, CMP wRFX A1C #### [address] Mean Corpuscular HGB Conc 33.2 g/dL Normal 32.0-35.[address] [facility] Comment on above: Performed By: #### C BC, CMP wRFX A1C #### [place] [address] [place] Monocytes (Bld) [#/Vol] 0.3 10*3/uL Normal 0.0-0.[address] [facility] Comment on above: Performed By: #### C BC, CMP wRFX A1C #### [facility] [address] [place] [address] [place] Monocytes/100 WBC (Bld) 4.8 % Normal . [facility] Comment on above: Performed By: #### C BC, CMP wRFX A1C #### [facility] [address] [place] [address] [place] Neutrophils (Bld) [#/Vol] 4.7 10*3/uL Normal 1.8-7.[address] [facility] Comment on above: Performed By: #### C BC, CMP wRFX A1C #### [facility] [address] [id number] [place] Neutrophils/100 WBC (Bld) 68.6 % Normal . [facility] Comment on above: Performed By: #### C BC, CMP wRFX A1C #### [facility] [address] [place] [address] [place] NRBC% 0.1 /100{WBC} Normal 0-0.[address] [facility] Comment on above: Performed By: #### C BC, CMP wRFX A1C #### [facility] [address] [id number] [place] Platelet mean volume (Bld) [Entitic vol] 7.2 fL Normal 6.3-10.[address] [facility] Comment on above: Performed By: #### C BC, CMP wRFX A1C #### [facility] [address] [place] [address] [place] Platelets (Bld) [#/Vol] 334 10*3/uL Normal 150-[address] [facility] Comment on above: Performed By: #### C BC, CMP wRFX A1C #### [facility] [address] [place] [address] [place] RBC (Bld) [#/Vol] 4.50 10*6/uL Normal 3.60-5.00 [facility] Comment on above: Performed By: #### C BC, CMP wRFX A1C #### [facility] [address] [id number] [place] WBC (Bld) [#/Vol] 6.8 10*3/uL Normal 3.8-11.6 [facility] Comment on above: Performed By: #### C BC, CMP wRFX A1C #### [address] Creatinine [Mass/volume] in Serum or PlasmaOrdered By: Shubham Rodrigues on 12-25-2022 Creatinine [Mass/Vol] 0.69 mg/dL 0.60-1.20 [facility] ECG 12 lead ECGon 12-25-2022 ECG 12 lead ECG [facility] [place] [address] [place] [address] Electrocardiograph Report Signed Patient: Karol Plascencia MR#: [id number] 160 : 1970 Acct:[id number] Age/Sex: 52 / F ADM Date: 12/25/22 Loc: Room: Type: [facility] Attending Dr: Shubham Rodrigues MD Ordering Provider: [...] Bryan DO 12/[address] [facility] Eosinophils Auto (Bld) [#/Vo l]Ordered By: Shubham Rodrigues on 12-25-2022 Eosinophils (Bld) [#/Vol] 0.2 10*3/uL 0.0-0.[address] [facility] Eosinophils/100 WBC Auto (Bl d)Ordered By: Shubham Rodrigues on 12-25-2022 Eosinophils/100 WBC (Bld) 3.0 % . [facility] Erythrocyte distribution wid th Auto (RBC) [Ratio]Ordered By: Shubham Rodrigues on 12-25-2022 Erythrocyte distribution width (RBC) [Ratio] 14.4 % 11.9-15.[address] [facility] Globulin Calc (S) [Mass/Vol] Ordered By: Shubham Rodrigues on 12-25-2022 Globulin (S) [Mass/Vol] 2.8 g/dL [facility] Glucose [Mass/volume] in Ser um or PlasmaOrdered By: Shubham Rodrigues on 12-25-2022 Glucose [Mass/Vol] 99 mg/dL 70-100 [facility] Hematocrit Auto (Bld) [Volum e fraction]Ordered By: Shubham Rodrigues on 12-25-2022 Hematocrit (Bld) [Volume fraction] 39.1 % 34.0-46.[address] [facility] Hemoglobin [Mass/volume] in BloodOrdered By: Shubham Rodrigues on 12-25-2022 Hemoglobin (Bld) [Mass/Vol] 13.0 g/dL 11.8-15.[address] [facility] Leukocytes [#/volume] correc darren for nucleated erythrocytes in Blood by Automated counOrdered By: Shubham Rodrigues on 12-25-2022 WBC corrected for nucl RBC Auto (Bld) [#/Vol] 6.8 10*3/uL 3.8-11.[address] [facility] Lymphocytes Auto (Bld) [#/Vo l]Ordered By: Shubham Rodrigues on 12-25-2022 Lymphocytes (Bld) [#/Vol] 1.5 10*3/uL 1.00-4.[address] [facility] Lymphocytes/100 WBC Auto (Bl d)Ordered By: Shubham Rodrigues on 12-25-2022 Lymphocytes/100 WBC (Bld) 22.8 % . [facility] MCH Auto (RBC) [Entitic mass ]Ordered By: Shubham Rodrigues on 12-25-2022 MCH (RBC) [Entitic mass] 28.9 pg 24.7-34.[address] [facility] MCHC Auto (RBC) [Mass/Vol]Or dered By: Shubham Rodrigues on 12-25-2022 MCHC (RBC) [Mass/Vol] 33.2 g/dL 32.0-35.0 [facility] MCV Auto (RBC) [Entitic vol] Ordered By: Shubham Rodriguse on 12-25-2022 MCV (RBC) [Entitic vol] 86.9 fL 80-100 [facility] Monocytes Auto (Bld) [#/Vol] Ordered By: Shubham Bullockxa on 12-25-2022 Monocytes (Bld) [#/Vol] 0.3 10*3/uL 0.0-0.[address] [facility] Monocytes/100 WBC Auto (Bld) Ordered By: Shubham Bullockxa on 12-25-2022 Monocytes/100 WBC (Bld) 4.8 % . [facility] Neutrophils Auto (Bld) [#/Vo l]Ordered By: Shubham Bullockxa on 12-25-2022 Neutrophils (Bld) [#/Vol] 4.7 10*3/uL 1.8-7.[address] [facility] Neutrophils/100 WBC Auto (Bl d)Ordered By: Shubham Rodrigues on 12-25-2022 Neutrophils/100 WBC (Bld) 68.6 % . [facility] No Panel InformationOrdered By: Shubham Rodrigues on 12-25-2022 Estimated GFR (CKD-EPI) > 60.0 mL/Min [facility] Creatinine Clearance (Chem N/A [facility] Nucleated erythrocytes [Pres ence] in Blood by Automated countOrdered By: Shubham Rodrigues on 12-25-2022 Nucleated RBC Auto Ql (Bld) 0.1 /100{WBC} 0-0.[address] [facility] Platelet mean volume Auto (B ld) [Entitic vol]Ordered By: Shubham Rodrigues on 12-25-2022 Platelet mean volume (Bld) [Entitic vol] 7.2 fL 6.3-10.[address] [facility] Platelets Auto (Bld) [#/Vol] Ordered By: Shubham Rodrigues on 12-25-2022 Platelets (Bld) [#/Vol] 334 10*3/uL 150-[address] [facility] Potassium [Moles/volume] in Serum or PlasmaOrdered By: Shubham Rodrigues on 12-25-2022 Potassium [Moles/Vol] 4.2 mmol/L 3.5-5.1 [facility] Protein [Mass/volume] in Ser um or PlasmaOrdered By: Shubham Rodrigues on 12-25-2022 Protein [Mass/Vol] 6.7 g/dL 6.4-8.9 [facility] RBC Auto (Bld) [#/Vol]Ordere d By: Shubham Bullockxa on 12-25-2022 RBC (Bld) [#/Vol] 4.50 10*6/uL 3.60-5.00 [facility] Serum or plasma albumin/glob ulin mass ratioOrdered By: Shubham Rodrigues on 12-25-2022 Albumin/Globulin [Mass ratio] 1.4 {ratio} [facility] Serum or plasma anion gap de terminationOrdered By: Shubham Rodrigues on 12-25-2022 Anion gap [Moles/Vol] 10.0 mmol/L 6.0-15.0 [facility] Sodium [Moles/volume] in Ser um or PlasmaOrdered By: Shubham Bullockxa on 12-25-2022 Sodium [Moles/Vol] 140 mmol/L 136-145 [facility] Urea nitrogen [Mass/volume] in Serum or PlasmaOrdered By: Shubham Rodrigues on 12-25-2022 Urea nitrogen [Mass/Vol] 18 mg/dL 7-[address] [facility] WBC Auto (Bld) [#/Vol]Ordere d By: Shubham Bullockxa on 12-25-2022 WBC (Bld) [#/Vol] 6.8 10*3/uL 3.8-11.6 [facility] PTH INTACTon 08-13-2022 PTH, Intact 59 pg/mL Normal 15-65 [facility] Comment on above: Performed By: #### P THINT ####[facility] [id number] [address]Dr. Mikaela Caldwell BUNon 08-12-2022 Urea nitrogen [Mass/Vol] 12.0 mg/dL Normal 7.0-18.0 [facility] Comment on above: Performed By: #### C A, K, CL, BUN, URIC, CO2, CREA, NA ####[facility] [id number] [address]Dr. Mikaela Caldwell CALCIUMon 08-12-2022 Calcium [Mass/Vol] 9.0 mg/dL Normal 8.5-10.1 [facility] Comment on above: Performed By: #### C A, K, CL, BUN, URIC, CO2, CREA, NA ####[facility] [id number] [address]Dr. Mikaela Caldwell CHLORIDEon 08-12-2022 Chloride [Moles/Vol] 107 mmol/L Normal 98-107 [facility] Comment on above: Performed By: #### C A, K, CL, BUN, URIC, CO2, CREA, NA ####[facility] [id number] [address]Dr. Mikaela Caldwell CO2on 08-12-2022 CO2 [Moles/Vol] 29.7 mmol/L Normal 21.0-32.0 [facility] Comment on above: Performed By: #### C A, K, CL, BUN, URIC, CO2, CREA, NA ####[facility] [id number] [address]Dr. Mikaela Caldwell CREATININEon 08-12-2022 Creatinine [Mass/Vol] 0.85 mg/dL Normal 0.55-1.02 [facility] Comment on above: Performed By: #### C A, K, CL, BUN, URIC, CO2, CREA, NA ####[facility] [id number] [place] [address]Dr. Mikaela Caldwell EGFR-AF NIGERIAN >60 Normal >=60 [facility] Comment on above: Performed By: #### C A, K, CL, BUN, URIC, CO2, CREA, NA ####[facility] [address] [place] [address]Dr. Mikaela Caldwell EGFR-NON AF NIGERIAN >60 Normal >=60 [facility] Comment on above: Performed By: #### C A, K, CL, BUN, URIC, CO2, CREA, NA ####[facility] [id number] [place] [address]Dr. Mikaela Caldwell NAon 08-12-2022 Sodium [Moles/Vol] 142 mmol/L Normal 136-145 [facility] Comment on above: Performed By: #### C A, K, CL, BUN, URIC, CO2, CREA, NA ####[facility] [address] [place], [place] [address]Gg. Mikaela Caldwell POTASSIUMon 08-12-2022 Potassium [Moles/Vol] 3.9 mmol/L Normal 3.5-5.1 [facility] Comment on above: Performed By: #### C A, K, CL, BUN, URIC, CO2, CREA, NA ####[facility] [address] [place], [place] [address]Nv. Mikaela Caldwell URIC ACID SERUMon 08-12-2022 Urate [Mass/Vol] 3.8 mg/dL Normal 2.6-6.0 [facility] Comment on above: Performed By: #### C A, K, CL, BUN, URIC, CO2, CREA, NA ####[facility] [id number] [place] [id number]. Mikaela Caldwell XR KUB 1 VIEWon 07-18-2022 [...] by: ZENAIDA ENGLISH Date: 2022-07-18 09:03 Normal [facility] US THYROIDon 05-15-2022 US THYROID EXAMINATION: US [...] IMPRESSION: Bilateral stable thyroid nodules TI-RADS: The [employer] TI-RADS committee's white paper recommendations for thyroid lesions classified as TR4 (moderately suspicious) are listed below: > 1.0 cm. Follow-up ultrasound in 1, 2, 3, and 5 years. > 1.5 cm. FNA. J. Am Ellen Radiol 2017;14:[id number]. Electronically authenticated by: KODY GARRISON Date: 2022-05-15 11:41 Normal [facility] MAMM SCREEN 3D ANN-MARIE CADon 03-27-2022 MG MAMM SCREEN 3D ANN-MARIE CAD Patient: KAROL PLASCENCIA Exam Date: 03/27/2022 : 1970 Gender:F Ordering : DR SUE WIN . Admission #: [id number] Family : Order #: [id number] CLICK HERE TO VIEW EXAM RADIOLOGY REPORT [...] prostate cancer at age 67. LOCATION: [facility] BREAST COMPOSITION: Heterogeneously dense,which may [...] M.D. on 03/27/2022 at 15:33 Normal [facility] Ammonium urate crystals dete ction in stone by infrared spectroscopyOrdered By: Jordi Mast on 12-21-2021 Ammonium urate crystals Infrared spectroscopy Ql (Stone) N/A [facility] Calcium bilirubinate measure mentOrdered By: Jordi Mast on 12-21-2021 Calcium bilirubinate (Stone) [Mass fraction] N/A [facility] Calcium carbonate measuremen tOrdered By: Jordi Mast on 12-21-2021 Calcium carbonate (Stone) [Mass fraction] N/A [facility] Calcium hydrogen phosphate d ihydrate/Total in StoneOrdered By: Jordi Mast on 12-21-2021 Calcium hydrogen phosphate dihydrate (Stone) [Mass fraction] N/A [facility] Calcium oxalate dihydrate cr ystals detection in stone by infrared spectroscopyOrdered By: Jordi Mast on 12-21-2021 Calcium oxalate dihydrate crystals Infrared spectroscopy Ql (Stone) 20 % . [facility] Calcium oxalate monohydrate/ Total in StoneOrdered By: Jordi Mast on 12-21-2021 Calcium oxalate monohydrate (Stone) [Mass fraction] 80 % . [facility] Calcium phosphate measuremen tOrdered By: Jordi Mast on 12-21-2021 Calcium phosphate (Stone) [Mass fraction] N/A [facility] Calculus analysis interpreta tion in stoneOrdered By: Jordi Mast on 12-21-2021 Calculus analysis [Interp] N/A [facility] Calculus analysis [Interp] See comment . [facility] Comment on above: Calculus received in liquid. Wet calculi must be dried before analysis, which delays reporting of results. Leaving calculi in liquid (such as water, saline, blood, urine) may lead to changes in composition. Physician questions regarding Calculi Analysis contact [facility] at: [phone]. Calculi report will follow via computer, mail or metal roaster delivery. Calculus analysis with calcu guera photography interpretation in stoneOrdered By: Jordi Mast on 12-21-2021 Calculus analysis with calculus photography [Interp] See comment . [facility] Comment on above: Photograph will foll ow under a separate cover Cellular material measuremen t in stone by estimated (mass/mass)Ordered By: Jordi Mast on 12-21-2021 Cellular material Est (Stone) [Mass/Mass] N/A [facility] Cholesterol/Total in StoneOr dered By: Jordi Mast on 12-21-2021 Cholesterol (Stone) [Mass fraction] N/A [facility] Composition of stoneOrdered By: Jordi Mast on 12-21-2021 Composition Nom (Stone) See comment . [facility] Comment on above: Percentage (Represen ts the % composition) Cystine measurementOrdered B y: Jordi Mast on 12-21-2021 Cystine (Unsp spec) [Moles/Vol] N/A [facility] Determination of color of ca lculusOrdered By: Jordi Mast on 12-21-2021 Color (Stone) Brown . [facility] Hydroxyapatite [Energy Diffe rence] in 24 hour UrineOrdered By: Jordi Mast on 12-21-2021 Hydroxyapatite (24H U) [Energy diff] N/A [facility] Measurement of proportion of calculus composed of dried blood (mass/mass)Ordered By: Jordi Mast on 12-21-2021 Blood.dried (Stone) [Mass fraction] N/A [facility] Newberyite/Total in StoneOrd ered By: Jordi Mast on 12-21-2021 Newberyite (Stone) [Mass fraction] N/A [facility] No Panel InformationOrdered By: Jordi Mast on 12-21-2021 Stone 2,8 Dihydroxyadenine N/A [facility] Stone Analysis Disclaimer See comment . [facility] Comment on above: This test was develo ped and its performance characteristics determined by [employer] It has not been cleared or approved by the Food and Drug Administration. Performed at: [facility] Stone Analysis [address] [place] [address] [address], [place], [place] [id number] Housekeeping Room Attendant: Jayson Santos PhD, Phone: [phone] Stone Bilirubinate N/A [facility] Stone Calcium Palmitate N/A [facility] Stone Calcium Stearate N/A [facility] Stone Carbonate Apatite N/A [facility] Stone Drug or Metabolite N/A [facility] Stone Other Constituent N/A [facility] Stone Xanthine N/A [facility] Size [Entitic volume] of Sto neOrdered By: Jordi Mast on 12-21-2021 Size (Stone) [Entitic vol] 5x3 mm . [facility] Comment on above: Multiple pieces rece ived. Dimensions of the largest piece reported. Sodium urate crystals detect ion in stone by infrared spectroscopyOrdered By: Jordi Mast on 12-21-2021 Sodium urate crystals Infrared spectroscopy Ql (Stone) N/A [facility] Specimen source subject [Typ e]Ordered By: Jordi Mast on 12-21-2021 Specimen source subject Nom See comment . [facility] Comment on above: Left Ureter Triamterene measurement in c alculusOrdered By: Jordi Mast on 12-21-2021 Triamterene (Stone) [Mass fraction] N/A [facility] Triple phosphate/Total in St oneOrdered By: Jordi Mast on 12-21-2021 Triple phosphate (Stone) [Mass fraction] N/A [facility] Uric acid dihydrate crystals detection in stone by infrared spectroscopyOrdered By: Jordi Mast on 12-21-2021 Urate dihydrate crystals Infrared spectroscopy Ql (Stone) N/A [facility] COVID-19 Positive/NegativeOr dered By: Jordi Mast on 12-19-2021 SARS-CoV-2 (COVID-19) N gene ISABELLA+probe Ql (Resp) Negative Negative [facility] Comment on above: Testing for SARS-CoV -2 by RT-PCR This test was developed and its performance characteristics determined by [employer] and validated at the [facility]. This test has not been FDA [...] aPTT Coag (PPP) [Time] 40.1 s 25.1-36.5 [facility] Basophils Auto (Bld) [#/Vol] Ordered By: Jordi Mast on 12-13-2021 Basophils (Bld) [#/Vol] 0.1 10*3/uL 0.0-0.[address] [facility] Basophils/100 WBC Auto (Bld) Ordered By: Jordi Mast on 12-13-2021 Basophils/100 WBC (Bld) 0.8 % . [facility] Blood hemoglobin measurement (mass/volume)Ordered By: Jordi Mast on 12-13-2021 Hemoglobin (Bld) [Mass/Vol] 12.8 g/dL 11.8-15.[address] [facility] Blood leukocytes automated c ount (number/volume)Ordered By: Jordi Mast on 12-13-2021 WBC (Bld) [#/Vol] 6.9 10*3/uL 4.5-11.0 [facility] Creatinine and Glomerular fi ltration rate.predicted panel (S/P/Bld)Ordered By: Jordi Mast on 12-13-2021 Creatinine [Mass/Vol] 0.76 mg/dL 0.44-1.03 [facility] Eosinophils Auto (Bld) [#/Vo l]Ordered By: Jordi Mast on 12-13-2021 Eosinophils (Bld) [#/Vol] 0.3 10*3/uL 0.0-0.[address] [facility] Eosinophils/100 WBC Auto (Bl d)Ordered By: Jordi Mast on 12-13-2021 Eosinophils/100 WBC (Bld) 4.9 % . [facility] Erythrocyte distribution wid th Auto (RBC) [Ratio]Ordered By: Jordi Mast on 12-13-2021 Erythrocyte distribution width (RBC) [Ratio] 14.0 % 11.9-15.[address] [facility] Estimated glomerular filtrat ion rate (GFR) non- AmericanOrdered By: Jordi Mast on 12-13-2021 GFR/1.73 sq M.predicted among non-blacks MDRD (S/P/Bld) [Vol rate/Area] > 60 mL/Min [facility] Hematocrit Auto (Bld) [Volum e fraction]Ordered By: Jordi Mast on 12-13-2021 Hematocrit (Bld) [Volume fraction] 39.2 % 34.0-46.[address] [facility] Laboratory - CoagulationOrde red By: Jordi Mast on 12-13-2021 PT Coag (PPP) [Time] 11.9 s 9.0-12.9 [facility] Laboratory - Hematology and Cell countsOrdered By: Jordi Mast on 12-13-2021 Nucleated RBC/100 WBC (Bld) [Ratio] 0.1 % 0-0.[address] [facility] Lymphocytes Auto (Bld) [#/Vo l]Ordered By: Jordi Mast on 12-13-2021 Lymphocytes (Bld) [#/Vol] 2.0 10*3/uL 1.00-4.[address] [facility] Lymphocytes/100 WBC Auto (Bl d)Ordered By: Jordi Mast on 12-13-2021 Lymphocytes/100 WBC (Bld) 28.9 % . [facility] MCH Auto (RBC) [Entitic mass ]Ordered By: Jordi Mast on 12-13-2021 MCH (RBC) [Entitic mass] 28.8 pg 24.7-34.[address] [facility] MCHC Auto (RBC) [Mass/Vol]Or dered By: Jordi Mast on 12-13-2021 MCHC (RBC) [Mass/Vol] 32.6 g/dL 32.0-35.0 [facility] MCV Auto (RBC) [Entitic vol] Ordered By: Jordi Mast on 12-13-2021 MCV (RBC) [Entitic vol] 88.1 fL 80-100 [facility] Monocytes Auto (Bld) [#/Vol] Ordered By: Jordi Mast on 12-13-2021 Monocytes (Bld) [#/Vol] 0.4 10*3/uL 0.0-0.[address] [facility] Monocytes/100 WBC Auto (Bld) Ordered By: Jordi Mast on 12-13-2021 Monocytes/100 WBC (Bld) 6.5 % . [facility] Neutrophils Auto (Bld) [#/Vo l]Ordered By: Jordi Mast on 12-13-2021 Neutrophils (Bld) [#/Vol] 4.1 10*3/uL 1.8-7.[address] [facility] Neutrophils/100 WBC Auto (Bl d)Ordered By: Jordi Mast on 12-13-2021 Neutrophils/100 WBC (Bld) 58.9 % . [facility] No Panel InformationOrdered By: Jordi Mast on 12-13-2021 Estimated GFR () > 60 mL/Min [facility] Comment on above: GFR estimated refere nce range: According to KDOQI guidelines, <60 ml/min/1.73m2 is sufficient to diagnose a patient with chronic kidney disease. Pharmacy Creatinine Clearance (Chem N/A [facility] Platelet mean volume Auto (B ld) [Entitic vol]Ordered By: Jordi Mast on 12-13-2021 Platelet mean volume (Bld) [Entitic vol] 7.5 fL 6.3-10.[address] [facility] Platelet poor plasma interna tional normalized ratio (INR) by coagulation assay (relatOrdered By: Jordi Mast on 12-13-2021 INR Coag (PPP) [Relative time] 1.1 {INR} [facility] Comment on above: INR Therapeutic Rang [...] (Bld) [#/Vol] 345 10*3/uL 150-[address] [facility] RBC Auto (Bld) [#/Vol]Ordere d By: Jordi Mast on 12-13-2021 RBC (Bld) [#/Vol] 4.45 10*6/uL 3.60-5.00 [facility] Serum or plasma calcium cielo urement (mass/volume)Ordered By: Jordi Mast on 12-13-2021 Calcium [Mass/Vol] 9.2 mg/dL 8.2-10.2 [facility] Serum or plasma chloride ankita surement (moles/volume)Ordered By: Jordi Mast on 12-13-2021 Chloride [Moles/Vol] 102 mmol/L 95-114 [facility] Serum or plasma glucose cielo urement (mass/volume)Ordered By: Jordi Mast on 12-13-2021 Glucose [Mass/Vol] 90 mg/dL 70-100 [facility] Comment on above: ADA recommended refe rence range Random Glucose Reference Range is dependent on time and content of last meal. Glucose of more than 200 mg/dL in a nonstressed, ambulatory subject supports the diagnosis of Diabetes Mellitus. Serum or plasma potassium me asurement (moles/volume)Ordered By: Jordi Mast on 12-13-2021 Potassium [Moles/Vol] 3.6 mmol/L 3.5-5.1 [facility] Serum or plasma sodium measu rement (moles/volume)Ordered By: Jordi Mast on 12-13-2021 Sodium [Moles/Vol] 139 mmol/L 136-146 [facility] Serum or plasma total carbon dioxide measurement (moles/volume)Ordered By: Jordi Mast on 12-13-2021 CO2 [Moles/Vol] 27.4 mmol/L 22.0-30.0 [facility] Serum or plasma urea nitroge n measurement (mass/volume)Ordered By: Jordi Mast on 12-13-2021 Urea nitrogen [Mass/Vol] 13 mg/dL 9-[address] [facility] MRI KNEE RT WO CONon 022 [...] ZENAIDA ENGLISH Date: 2021-12-10 07:56 Normal [facility] COVID-19 SOFIAOrdered By: Jeison anuradha Mast on 11-27-2021 SARS-CoV+SARS-CoV-2 (COVID-19) Ag IA.rapid Ql (Resp) Negative Negative [facility] Comment on above: This is a duplicate Mony SARS Antigen (MILES) result to be used for statistical tracking purpose only. No Panel InformationOrdered By: Jordi Mast on 11-27-2021 SARS Antigen (LFIA) [facility] XR KUB 1 VIEWon 11-20-2021 XR KUB [...] by: ZENAIDA ENGLISH Date: 2021-11-20 18:35 Normal [facility] CULTURE URINEon 11-15-2021 CULTURE URINE [...] Trimethoprim/Sulfam ethoxazole <=20 S F Normal [facility] Comment on above: Performed By: #### C VDTBH #### [facility] [address] [place] [address] Dr. Mikaela Caldwell CARDIAC EDGARDO 3-6on 2 CK [Catalytic activity/Vol] 54 U/L Normal 26-192 [facility] Comment on above: Performed By: #### C VDTBH #### [facility] [address] [place] [address] Dr. Mikaela Caldwell CK.MB [Mass/Vol] 2.05 ng/mL Normal <=3.60 [facility] Comment on above: Performed By: #### C VDTBH #### [facility] [address] [place] [address] Dr. Mikaela Caldwell HSTROP 6.5 pg/mL Normal 4.0-51.3 [facility] Comment on above: Result Comment: CUT- OFF POINTS HAVE BEEN ESTABLISHED BASED ON THE FOURTH UNIVERSAL DEFINITIONS OF MYOCARDIAL INFARCTION. THE UPPER REFERENCE LIMIT (URL) OF TROPONIN, DEFINED THE 99TH PERCENTILE OF cTnI DISTRIBUTION IN A REFERENCE POPULATION, HAS BEEN CONFIRMED THE DECISION THRESHOLD FOR MT DIAGNOSIS. Performed By: #### C VDTBH #### [facility] [address] [place] [address] Dr. Mikaela Caldwell CK [Catalytic activity/Vol] 63 U/L Normal 26-192 [facility] Comment on above: Performed By: #### C MREP #### [facility] [address] [place] [address] Dr. Mikaela Caldwell CK.MB [Mass/Vol] 2.28 ng/mL Normal <=3.60 [facility] Comment on above: Performed By: #### C MREP #### [facility] [address] [place] [address] Dr. Mikaela Caldwell HSTROP 5.1 pg/mL Normal 4.0-51.3 [facility] Comment on above: Result Comment: CUT- OFF POINTS HAVE BEEN ESTABLISHED BASED ON THE FOURTH UNIVERSAL DEFINITIONS OF MYOCARDIAL INFARCTION. THE UPPER REFERENCE LIMIT (URL) OF TROPONIN, DEFINED THE 99TH PERCENTILE OF cTnI DISTRIBUTION IN A REFERENCE POPULATION, HAS BEEN CONFIRMED THE DECISION THRESHOLD FOR MT DIAGNOSIS. Performed By: #### C MREP #### [facility] [address] [place] [address] Dr. Mikaela Caldwell CARDIAC EDGARDO ADMITon 022 CK [Catalytic activity/Vol] 77 U/L Normal 26-192 [facility] Comment on above: Performed By: #### C RONEN MA, CMP #### [facility] [address] [place] [address] Dr. Mikaela Caldwell CK.MB [Mass/Vol] 2.40 ng/mL Normal <=3.60 [facility] Comment on above: Performed By: #### C RONEN MA, CMP #### [facility] [address] [place] [address] Dr. Mikaela Caldwell HSTROP 5.8 pg/mL Normal 4.0-51.3 [facility] Comment on above: Result Comment: CUT- OFF POINTS HAVE BEEN ESTABLISHED BASED ON THE FOURTH UNIVERSAL DEFINITIONS OF MYOCARDIAL INFARCTION. THE UPPER REFERENCE LIMIT (URL) OF TROPONIN, DEFINED THE 99TH PERCENTILE OF cTnI DISTRIBUTION IN A REFERENCE POPULATION, HAS BEEN CONFIRMED THE DECISION THRESHOLD FOR MT DIAGNOSIS. Performed By: #### C RONEN MA, CMP #### [facility] [address] [place] [address] Dr. Mikaela Caldwell JOYCE 29 ng/mL Normal 9-82 [facility] Comment on above: Performed By: #### C RONEN MA, CMP #### [facility] [address] [place] [address] Dr. Mikaela Caldwell CBC AUTO DIFFon 11-13-2021 BASO # 0.1 103/ul Normal 0.0-0.1 [facility] Comment on above: Performed By: #### C BC #### [facility] [address] [place] [address] Dr. Mikaela Caldwell Basophils/100 WBC (Bld) 0.5 % Normal 0.2-2.0 [facility] Comment on above: Performed By: #### C BC #### [facility] [address] [place] [address] Dr. Mikaela Caldwell EO # 0.3 103/ul Normal 0.0-0.7 [facility] Comment on above: Performed By: #### C BC #### [facility] [address] [place] [address] Dr. Mikaela Caldwell Eosinophils/100 WBC (Bld) 2.1 % Normal 0.9-7.0 [facility] Comment on above: Performed By: #### C BC #### [facility] [address] [place] [address] Dr. Mikaela Caldwell Erythrocyte distribution width (RBC) [Ratio] 13.2 % Normal 11.0-15.0 [facility] Comment on above: Performed By: #### C BC #### [facility] [address] [place] [address] Dr. Mikaela Caldwell Hematocrit (Bld) [Volume fraction] 40.9 % Normal 36.0-48.0 [facility] Comment on above: Performed By: #### C BC #### [facility] [address] [place] [address] Dr. Mikaela Caldwell Hemoglobin (Bld) [Mass/Vol] 13.1 g/dL Normal 12.0-16.0 [facility] Comment on above: Performed By: #### C BC #### [facility] [address] [place] [address] Dr. Mikaela Caldwell IG # 0.07 10e3/ul Critically high 0.00-0.03 [facility] Comment on above: Performed By: #### C BC #### [facility] [address] [place] [address] Dr. Mikaela Caldwell IG % 0.5 % Normal 0.0-0.5 [facility] Comment on above: Performed By: #### C BC #### [facility] [address] [place] [address] Dr. Mikaela Caldwell LYMPH # 1.8 103/ul Normal 1.2-3.8 [facility] Comment on above: Performed By: #### C BC #### [facility] [address] [place] [address] Dr. Mikaela Caldwell Lymphocytes/100 WBC (Bld) 12.5 % Critically low 20.5-60.0 [facility] Comment on above: Performed By: #### C BC #### [facility] [address] [place] [address] Dr. Mikaela Caldwell MANUAL DIFF REQ NO Normal [facility] Comment on above: Performed By: #### C BC #### [facility] [address] [place] [address] Dr. Mikaela Caldwell MCH (RBC) [Entitic mass] 29.2 pg Normal 26.7-34.0 [facility] Comment on above: Performed By: #### C BC #### [facility] [address] [place] [address] Dr. Mikaela Caldwell MCHC (RBC) [Mass/Vol] 32.0 g/dL Normal 29.9-35.2 [facility] Comment on above: Performed By: #### C BC #### [facility] [address] [place] [address] Dr. Mikaela Caldwell MCV (RBC) [Entitic vol] 91.1 fL Normal 81.0-99.0 [facility] Comment on above: Performed By: #### C BC #### [facility] [address] [place] [address] Dr. Mikaela Caldwell MONO # 0.7 103/ul Normal 0.3-0.8 [facility] Comment on above: Performed By: #### C BC #### [facility] [address] [place] [address] Dr. Mikaela Caldwell Monocytes/100 WBC (Bld) 5.1 % Normal 1.7-12.0 [facility] Comment on above: Performed By: #### C BC #### [facility] [address] [place] [address] Dr. Mikaela Caldwell NEUT # 11.1 103/ul Critically high 1.4-6.5 [facility] Comment on above: Performed By: #### C BC #### [facility] [address] [place] [address] Dr. Mikaela Caldwell Neutrophils/100 WBC (Bld) 79.3 % Critically high 43.0-75.0 [facility] Comment on above: Performed By: #### C BC #### [facility] [address] [place] [address] Dr. Mikaela Caldwell Platelet mean volume (Bld) [Entitic vol] 9.2 fL Critically low 9.5-13.5 [facility] Comment on above: Performed By: #### C BC #### [facility] [address] [place] [address] Dr. Mikaela Caldwell PLT 420 103/ul Normal 150-450 [facility] Comment on above: Performed By: #### C BC #### [facility] [address] [place] [address] Dr. Mikaela Caldwell RBC 4.49 106/ul Normal 4.20-5.40 [facility] Comment on above: Performed By: #### C BC #### [facility] [address] [place] [address] Dr. Mikaela Caldwell WBC 14.0 103/ul Critically high 4.0-11.0 [facility] Comment on above: Performed By: #### C BC #### [facility] [address] [place], [place] [id number] Dr. Mikaela Caldewll CT ABD/PELVIS WO CONon 11-13 CT ABD/PELVIS [...] GEORGE LLANES Date: 2021-11-13 02:57 Normal [facility] Covid-19 PCR (CVDTB)on 10-26 SARS-CoV-2 (COVID-19) RNA ISABELLA+probe Ql (Unsp spec) Not detected Normal NOT DETECTED [facility] Comment on above: Result Comment: [...] for this test is supported by the [employer] of Health and Human Service's declaration that [...] used). Performed By: #### C VDTB #### [facility] [address] [place] [address] Dr. Mikaela Caldwell ER URINE PROFILEon 2 Bilirubin Ql (U) Negative Normal NEGATIVE [facility] Comment on above: Performed By: #### E AUBREE ROSAS #### [facility] [address], [place] [address] Dr. Mikaela Caldwell Clarity (U) CLEAR Normal CLEAR [facility] Comment on above: Performed By: #### E AUBREE ROSAS #### [facility] [address] [place] [address] Dr. Mikaela Caldwell Color (U) LT. YELLOW Normal YELLOW [facility] Comment on above: Performed By: #### KENDELL ROGERSRO #### [facility] [address] [place] [address] Dr. Mikaela MCMANUS A micrscopic examination will be performed if indicated. Normal [facility] Comment on above: Performed By: #### ANDRZEJ ROGERSICRO #### [facility] [address] [place] [address] Dr. Mikaela Caldwell Glucose Ql (U) Negative Normal NEGATIVE [facility] Comment on above: Performed By: #### KENDELL ROGERSRO #### [facility] [address] [place] [address] Dr. Mikaela Caldwell Hemoglobin Ql (U) TRACE-INTACT Abnormal NEGATIVE [facility] Comment on above: Performed By: #### KENDELL ROGERSRO #### [facility] [address] [place] [address] Dr. Mikaela Caldwell Ketones Ql (U) Negative Normal NEGATIVE [facility] Comment on above: Performed By: #### KENDELL ROGERSRO #### [facility] [address] [place] [address] Dr. Mikaela Caldwell LEUKOCYTES TRACE Abnormal NEGATIVE [facility] Comment on above: Performed By: #### ANDRZEJ ROGERSICRO #### [facility] [address] [place] [address] Dr. Mikaela Caldwell Nitrite Ql (U) Positive Abnormal NEGATIVE [facility] Comment on above: Performed By: #### ANDRZEJ ROGERSICRO #### [facility] [address] [place] [address] Dr. Mikaela Caldwell pH (U) 6.5 [pH] Normal 5-9 [facility] Comment on above: Performed By: #### Jimy ROSAS UMICRO #### [facility] [address] [place] [address] Dr. Mikaela Caldwell SPEC GRAVITY 1.020 Normal 1.005-<=1.025 [facility] Comment on above: Performed By: #### Jimy ROSAS UMICRO #### [facility] [address] [place] [address] Dr. Mikaela Caldwell UA PROTEIN Negative Normal NEGATIVE/ TRACE [facility] Comment on above: Performed By: #### E RALPH, UMICRO #### [facility] [address] [place] [address] Dr. Mikaela Caldwell UR MICRO IND INDICATED Normal [facility] Comment on above: Performed By: #### E RALPH, UMICRO #### [facility] [address] [place] [address] Dr. Mikaela Caldwell Urobilinogen Qn (U) 0.2 {Lisa'U}/dL Normal 0.2 - 1. 0 [facility] Comment on above: Performed By: #### Jimy ROSAS UMICRO #### [facility] [address] [place] [address] Dr. Mikaela Caldwell LACTATE/LACTIC ACIDon 2021 Lactate [Moles/Vol] 1.2 mmol/L Normal 0.4-1.9 [facility] Comment on above: Performed By: #### L ACT ####[facility] [id number] [place] [address]Dr. Mikaela Caldwell LIPASEon 11-13-2021 Lipase [Catalytic activity/Vol] 97.0 U/L Normal 73.0-393.0 [facility] Comment on above: Performed By: #### C RONEN MA, CMP #### [facility] [address] [place] [address] Dr. Mikaela Caldwell PROF 14(COMP METB)on 022 Albumin [Mass/Vol] 3.5 g/dL Normal 3.4-5.0 [facility] Comment on above: Performed By: #### C RONEN MA, CMP #### [facility] [address] [place] [address] Dr. Mikaela Caldwell Albumin/Globulin [Mass ratio] 0.9 {ratio} Normal [facility] Comment on above: Performed By: #### C MADM, LIPA, CMP #### [facility] [address] [address] [address] Mikaela Caldwell ALP [Catalytic activity/Vol] 161 U/L Critically high 46-116 [facility] Comment on above: Performed By: #### C MADM, LIPA, CMP #### [facility] [address] [address] [address] Mikaela Caldwell ALT [Catalytic activity/Vol] 30 U/L Normal 14-59 [facility] Comment on above: Performed By: #### C MADM, LIPA, CMP #### [facility] [address] [place] [address] Dr. Mikaela Caldwell Anion gap [Moles/Vol] 10.4 mmol/L Normal [facility] [place] Comment on above: Performed By: #### C MADM, LIPA, CMP #### [facility] [address] [place] [address] Dr. Mikaela Caldwell AST [Catalytic activity/Vol] 17 U/L Normal 15-37 [facility] Comment on above: Performed By: #### C MADM, LIPA, CMP #### [facility] [address] [place] [address] Dr. Mikaela Caldwell Bilirubin [Mass/Vol] 0.3 mg/dL Normal 0.2-1.0 [facility] Comment on above: Performed By: #### C MADM, LIPA, CMP #### [facility] [address] [place] [address] Dr. Mikaela Caldwell Calcium [Mass/Vol] 8.8 mg/dL Normal 8.5-10.1 [facility] Comment on above: Performed By: #### C MADM, LIPA, CMP #### [facility] [address] [place] [address] Dr. Mikaela Caldwell Chloride [Moles/Vol] 106 mmol/L Normal 98-107 [facility] Comment on above: Performed By: #### C MADM, LIPA, CMP #### [facility] [address] [place] [address] Dr. Mikaela Caldwell CO2 [Moles/Vol] 30.1 mmol/L Normal 21.0-32.0 [facility] Comment on above: Performed By: #### C RONEN MA, CMP #### [facility] [address] [address] [address] Mikaela Caldwell Creatinine [Mass/Vol] 1.02 mg/dL Normal 0.55-1.02 [facility] Comment on above: Performed By: #### C SIMONE MAA, CMP #### [facility] [address] [address] [address] Mikaela Caldwell EGFR-AF NIGERIAN >60 Normal >=60 [facility] Comment on above: Performed By: #### C RONEN MA, CMP #### [facility] [address] [place] [address] Dr. Mikaela Caldwell EGFR-NON AF NIGERIAN 57 mL/min/1.73m2 Critically low >=60 [facility] Comment on above: Performed By: #### C SIMONE MAA, CMP #### [facility] [address] [address] [address] Mikaela Caldwell Globulin (S) [Mass/Vol] 4.0 g/dL Normal [facility] Comment on above: Performed By: #### C SIMONE MAA, CMP #### [facility] [address] [address] [address] Mikaela Caldwell Glucose [Mass/Vol] 113 mg/dL Critically high 74-106 [facility] Comment on above: Performed By: #### C ANIL LIPA, CMP #### [facility] [address] [address] [address] Mikaela Caldwell Potassium [Moles/Vol] 3.5 mmol/L Normal 3.5-5.1 [facility] Comment on above: Performed By: #### C SIMONE MAA, CMP #### [facility] [address] [address] [address] Mikaela Caldwell Protein [Mass/Vol] 7.5 g/dL Normal 6.4-8.2 [facility] Comment on above: Performed By: #### C MADM LIPA, CMP #### [facility] [address] [place] [address] Dr. Mikaela Caldwell Sodium [Moles/Vol] 143 mmol/L Normal 136-145 [facility] Comment on above: Performed By: #### C MADM, LIPA, CMP #### [facility] [address] [place] [address] Dr. Mikaela Caldwell Urea nitrogen [Mass/Vol] 18.0 mg/dL Normal 7.0-18.0 [facility] Comment on above: Performed By: #### C MADMarii LIPA, CMP #### [facility] [address] [place] [address] Dr. Mikaela Caldwell Urea nitrogen/Creatinine [Mass ratio] 17.6 mg/mg Normal [facility] Comment on above: Performed By: #### C ANIL LIPA, CMP #### [facility] [address] [place] [address] Dr. Mikaela Caldwell URINE MICROSCOPIC ONLYon BACTERIA TRACE Abnormal NONE SEEN [facility] Comment on above: Performed By: #### Jimy ROSAS UMICRO #### [facility] [address] [place] [address] Dr. Mikaela Caldwell Bacteria identified Cx Nom (U) INDICATED Normal [facility] Comment on above: Performed By: #### E RALPH, UMICRO #### [facility] [address] [place] [address] Dr. Mikaela Caldwell CAST NONE SEEN Normal NONE SEEN [facility] Comment on above: Performed By: #### E RUR, UMICRO #### [facility] [address] [place] [address] Dr. Mikaela Caldwell Crystals LM Nom (Urine sed) NONE SEEN Normal NONE SEEN [facility] Comment on above: Performed By: #### E RUR, UMICRO #### [facility] [address] [place] [address] Dr. Mikaela Caldwell Epithelial cells LM Ql (Urine sed) NONE SEEN Normal NONE SEEN /RARE [facility] Comment on above: Performed By: #### E KENDELL ROSASRO #### [facility] [address], [place] [address] Dr. Mikaela Caldwell MUCOUS NONE SEEN Normal NONE SEEN [facility] Comment on above: Performed By: #### E RALPH UMICRO #### [facility] [address] [place], [place] [address] Dr. Mikaela Caldwell RBC 0-2 Normal 0-2 [facility] Comment on above: Performed By: #### E RALPH UMICRO #### [facility] [address] [address] [address] Mikaela Caldwell WBC 5-10 Abnormal NONE SEEN [facility] Comment on above: Performed By: #### E KENDELL ROSASRO #### [facility] [address] [address] [address] Mikaela Caldwell XR CHEST 2 Von [...] GEORGE LLANES Date: 2021-11-13 02:46 Normal [facility] Vital Signs Date Time Vital Sign Value Performing Clinician Facility 02-02-2024 08:03-0400 Blood Pressure Location Jordi MAST [facility] 02-02-2024 08:03-0400 Diastolic blood pressure 90 mm[Hg] Jordi MAST [facility] 02-02-2024 08:03-0400 Heart rate 82 /min Jordi MAST [facility] 02-02-2024 08:03-0400 Respiratory rate 16 /min Jordi MAST [facility] 02-02-2024 08:03-0400 Systolic blood pressure 114 mm[Hg] Jordi MAST [facility] 12-19-2022 09:45-0400 Body height 165.1 cm [employer] Other [employer] [facility] [employer] Other 12-19-2022 09:45-0400 Body mass index (BMI) [Ratio] 39.27 kg/m2 Shubham Olexa Other [facility] [employer] Other 12-19-2022 09:45-0400 Body weight 107.05 kg Shubham Olexa Other [facility] [employer] Other 07-22-2022 09:50-0400 Blood Pressure Location Jordi MAST [facility] 07-22-2022 09:50-0400 Diastolic blood pressure 81 mm[Hg] Jordi MAST [facility] 07-22-2022 09:50-0400 Heart rate 72 /min Jordi MAST [facility] 07-22-2022 09:50-0400 Respiratory rate 16 /min Jordi MAST [facility] 07-22-2022 09:50-0400 Systolic blood pressure 129 mm[Hg] Jordi MAST [facility] 12-21-2021 17:00-0400 Diastolic blood pressure 82 mm[Hg] MD Jordi Mast Work Phone: [facility] 12-21-2021 17:00-0400 Heart rate 79 /min MD Jordi Mast Work Phone: [facility] 12-21-2021 17:00-0400 Respiratory rate 16 /min MD Jordi Mast Work Phone: [facility] 12-21-2021 17:00-0400 SaO2% (BldA) [Mass fraction] 100 % MD Jordi Mast Work Phone: [facility] 12-21-2021 17:00-0400 Systolic blood pressure 118 mm[Hg] MD Jordi Mast Work Phone: [facility] 12-21-2021 15:35-0400 Body weight 118 mg MD Jordi Mast Work Phone: [facility] 12-21-2021 14:57-0400 Body height 165.1 cm MD Jordi Mast Work Phone: [facility] 12-21-2021 14:57-0400 Body mass index (BMI) [Ratio] 38.5 kg/m2 MD Jordi Mast Work Phone: [facility] 12-21-2021 14:57-0400 Body weight 105 kg MD Jordi Mast Work Phone: [facility] 12-21-2021 12:56-0400 Body temperature 98.4 [degF] MD Jordi Mast Work Phone: [facility] 11-29-2021 14:51-0400 Diastolic blood pressure 84 mm[Hg] MD Jordi Mast Work Phone: [facility] 11-29-2021 14:51-0400 Heart rate 80 /min MD Jordi Mast Work Phone: [facility] 11-29-2021 14:51-0400 Respiratory rate 16 /min MD Jordi Mast Work Phone: [facility] 11-29-2021 14:51-0400 SaO2% (BldA) [Mass fraction] 98 % MD Jordi Mast Work Phone: [facility] 11-29-2021 14:51-0400 Systolic blood pressure 117 mm[Hg] MD Jordi Mast Work Phone: [facility] 11-29-2021 12:45-0400 Body height 165.1 cm MD Jordi Mast Work Phone: [facility] 11-29-2021 12:45-0400 Body mass index (BMI) [Ratio] 37.4 kg/m2 MD Jordi Mast Work Phone: [facility] 11-29-2021 12:45-0400 Body weight 102.05 kg MD Jordi Mast Work Phone: [facility] 11-29-2021 12:24-0400 Body temperature 97.9 [degF] MD Jordi Mast Work Phone: [facility] Encounters Encounter Date Encounter Type Care Provider Facility Start: 07-12-2024 End: 07-12-2024 ambulatory [facility] Start: 07-12-2024 Encounter for gynecological examination (general) (routine) without abnormal findings [facility] Start: 07-12-2024 End: 07-12-2024 Patient encounter procedure Sue Win MD Work Phone: [facility] Start: 07-12-2024 End: 07-12-2024 Subsequent hospital visit by physician Sue Win MD Work Phone: [facility] Comment on above: Women's annual routi ne gynecological examination Start: 02-02-2024 End: 02-02-2024 ambulatory Jordi MAST Facility: [facility] Start: 02-02-2024 End: 02-02-2024 Patient encounter procedure Jordi MAST [facility] [place] [facility] Start: 02-10-2023 End: 02-10-2023 ambulatory Shubham Rodrigues Other [employer] Other Start: 02-10-2023 Postop follow up vis it related to original px Shubham Olexa [facility] Start: 02-10-2023 Telephone encounter Shubham Olexa [facility] Start: 01-07-2023 End: 01-07-2023 ambulatory Shubham Olexa Other [employer] Other Start: 01-07-2023 Postop follow up vis it related to original px Shubham Olexa [facility] Start: 01-01-2023 End: 01-01-2023 ambulatory Sue Win Facility:[facility] Start: 12-31-2022 End: 12-31-2022 ambulatory Shubham Olexa Other [employer] Other Start: 12-31-2022 Telephone encounter Shubham Olexa [facility] Start: 12-25-2022 End: 12-25-2022 ambulatory Sue Win Facility:[facility] Start: 12-25-2022 End: 12-25-2022 ambulatory MD Sue Win Work Phone: [facility] Work Phone: Start: 12-25-2022 End: 12-25-2022 Patient encounter procedure MD Sue Win Work Phone: [facility] [employer] Work Phone: Start: 12-19-2022 End: 12-19-2022 ambulatory Shubham Olexa Other [employer] Other Start: 12-19-2022 Office outpatient vi sit 25 minutes Shubham Olexa [facility] Start: 11-25-2022 End: 11-25-2022 ambulatory Shubham Olexa Other [employer] Other Start: 11-25-2022 Office outpatient ne w 45 minutes Shubham Olexa [facility] Start: 08-12-2022 End: 08-13-[address] JORDI MAST Facility:[facility] Start: 07-22-2022 End: 07-22-2022 Patient encounter procedure Jordi MAST [facility] [place] [facility] Start: 07-18-2022 End: 07-19-[address] JORDI MAST Facility:[facility] Start: 05-15-2022 End: 05-16-[address] HARVEY BURCH Facility:[facility] Start: 03-27-2022 End: 03-28-[address] SUE WIN . Facility:[facility] Start: 12-21-2021 End: 12-21-2021 Admission to same day surgery center MD [facility] Start: 12-19-2021 End: 12-19-2021 Patient encounter procedure MD Jordi Mast Work Phone: [facility] Start: 12-13-2021 End: 12-13-2021 Patient encounter procedure MD Jordi Mast Work Phone: [facility] Start: 12-12-2021 End: 12-13-[address] SUE WIN . Facility:[facility] Start: 12-10-2021 End: 12-11-[address] JORDI MAST Facility:[facility] Start: 11-29-2021 End: 11-29-2021 Admission to same day surgery center MD [facility]ordi Mast [facility] Start: 11-27-2021 End: 11-27-2021 Patient encounter procedure MD Jordi Mast Work Phone: [facility] Start: 11-21-2021 End: 11-21-2021 Patient encounter procedure Jordi MAST [facility] [place] [facility] Start: 11-20-2021 End: 11-21-[address] JORDI MAST Facility:[facility] Start: 11-13-2021 End: 11-13-[address] SUE WIN . Facility:[facility] Start: 10-03-2021 End: 10-04-[address] SUE WIN . Facility:[facility] Start: 03-05-2021 End: 03-05-2021 Patient encounter procedure Sue Win MD Work Phone: [facility] Start: 03-05-2021 End: 03-05-2021 Subsequent hospital visit by physician Sue Win MD Work Phone: [facility] Comment on above: Vaginal discharge; Women's annual routine gynecological examination Start: 02-25-2019 End: 02-25-2019 Subsequent hospital visit by physician Sue Win [facility] Comment on above: Women's annual routi ne gynecological examination Procedures Date Procedure Procedure Detail Performing Clinician Start: 05-12-2023 Microscopic observat ion [Identifier] in Cervix by Cyto stain Sue Win MD Work Phone: Start: 12-21-2021 Cystoscopy MD Jordi Mast Work [...] MD Work Phone: Start: 08-26-2018 Colonoscopy Jordi ROBERT SISA Diagnostic endoscopy Jordi MANNIE Dilation and curetta ge of uterus Jordi MANNIE SARS Antigen (LFIA) MD Alejandro wells Mannie Work Phone: Plan of Treatment Date Care Activity Detail Author Start: 05-12-2026 Screening for malign ant neoplasm of cervix [facility] Start: 12-28-2023 COVID-19 Vaccine () COVID-19 Vaccine () [facility] Start: 11-27-2023 Influenza vaccination Flu vaccine (# 1) [facility] Start: 03-20-2022 Screening for malign ant neoplasm of breast Breast cancer screen [facility] Start: 03-13-2022 End: 03-13-2022 Patient encounter procedure 03/13/2022 Office Visit Obstetrics and Gynecology Rosaura Yang MD [address] [place] [address] [place] [address] [facility] Start: 02-25-2022 Screening for malign ant neoplasm of cervix [facility] Start: 12-21-2021 End: 12-21-2021 [facility] Work Phone: Start: 12-21-2021 Cystoscopy OR Cysto/Retro/Stent/Stone /Holmium Laser (Left) [facility] Start: 12-21-2021 Diagnostic radiograp hy of abdomen XR [facility] Start: 12-21-2021 End: 12-21-2021 Admission to same day surgery center Departed Surgical Day [facility] [place] Start: 12-21-2021 Diagnostic radiograp hy of abdomen XR [facility] Start: 12-19-2021 End: 12-19-2021 [facility] Start: 12-13-2021 End: 12-13-2021 Patient encounter procedure Departed Clinical [facility] Start: 11-29-2021 [facility] Work Phone: Start: 11-29-2021 [facility] Work Phone: Start: 02-23-2021 Cervical cancer screen Cervical canc er screen [place], [place] Start: 02-11-2021 COVID-19 Vaccine (3 - Pfizer booster) COVID-19 Vaccine (3 - Pfizer booster) [facility] Start: 02-07-2021 Pneumococcal 50+ yea rs Vaccine (2 of 2 - PPSV23) Pneumococcal 50+ years Vaccine (2 of 2 - PPSV23) [facility] Start: 02-28-2020 Breast cancer screen Breast cancer s creen [place], [place] Start: 03-27-2019 Influenza vaccination Flu vaccine (# 1) [place], [place] Comment on above: Postponed from 12/27 (Not Indicated) Start: 03-25-2019 Diabetes screen Diabetes screen [place], [place] Comment on above: Postponed from 07/08 (Not Indicated) Start: 03-25-2019 DTaP/Tdap/Td vaccine (1 - Tdap) DTaP/Tdap/Td vaccine (1 - Tdap) [place], [place] Comment on above: Postponed from 07/08 (Patient Refused) Start: 03-25-2019 HIV screen HIV screen [place], [place] Comment on above: Postponed from 07/08 (Patient Refused) Start: 03-25-2019 Lipid screen Lipid screen [place], [place] Comment on above: Postponed from 07/08 (Not Indicated) Start: 2018 Colon cancer screen colonoscopy Colon cancer screen colonoscopy [place], [place] Start: 2018 Shingles Vaccine (1 of 2) Shingles Vaccine (1 of 2) [facility] Start: 2013 Screening for malign ant neoplasm of colon [facility] Start: 2008 Diabetes screen Diabetes screen [facility] Start: 2008 Lipid panel [facility] Start: 07-09-2003 Diabetes screen Diabetes screen [facility] Start: 1998 Screening for malign ant neoplasm of cervix HPV (without or with Pap) [facility] Start: 07-09-1987 DTaP/Tdap/Td vaccine (1 - Tdap) DTaP/Tdap/Td vaccine (1 - Tdap) [facility] Start: 07-09-1987 Hepatitis B vaccine (1 of 3 - 19+ 3-dose series) Hepatitis B vaccine (1 of 3 - 19+ 3-dose series) [facility] Start: 1986 Hepatitis C screening Hepatitis C [facility] Start: 07-09-1983 HIV screening HIV screen [facility] Start: 1980 Depression Screen Depression Screen [facility] Start: 1968 Hepatitis C screening Hepatitis C [facility] End: 03-05-2021 Culture, Genital [facility] Work Phone: Comment on above: 1 Occurrences starti ng 03/05/2021 until 03/05/2021 End: 02-25-2019 Cytopathology procedure, preparation of smear, genital source [facility] Lab Routine Women's Annual Routine Gynecological Examination 1 Occurrences starting 02/25/2019 until 02/25/2019 [facility] [place] Comment on above: 1 Occurrences starti ng 02/25/2019 until 02/25/2019 End: 03-05-2021 Cytopathology procedure, preparation of smear, genital source [facility] Lab Routine Women's annual routine gynecological examination 1 Occurrences starting 03/05/2021 until 03/05/2021 [facility] Work Phone: Comment on above: 1 Occurrences starti ng 03/05/2021 until 03/05/2021 End: 07-12-2024 Cytopathology procedure, preparation of smear, genital source [facility] Lab Routine Women's annual routine gynecological examination 1 Occurrences starting 07/12/2024 until 07/12/2024 [facility] Work Phone: Comment on above: 1 Occurrences starti ng 07/12/2024 until 07/12/2024 Patient Education Cystoscopy (DC) [facility] Work Phone: Patient referral [facility] Work Phone: Immunizations Immunization Date Immunization Notes Care Provider Fa rima 11-13-2021 SARS-CoV-2 (COVID-19 ) [id number] vaccine [facility] [facility] 09-29-2021 COVID-19 mRNA-1273 (Moderna) MD Jordi Mast Work Phone: [facility] 02-08-2021 influenza virus vaccine, unspecified formulation Jordi MANNIE [facility] 02-08-2021 Influenza, injectabl e, Madin Mary Canine Kidney, preservative free, quadrivalent Sue Win MD Work Phone: [facility] Work Phone: 08-12-2020 COVID-19 mRNA-1273 (Moderna) MD Jordi Mast Work Phone: [facility] 08-12-2020 COVID-19, Pfizer, PF , 30mcg/0.3mL Sue Win MD Work Phone: [facility] 07-17-2020 SARS-CoV-2 (COVID-19 ) mRNA-1273 vaccine Jordigarrett MAST [facility] 07-15-2020 COVID-19 mRNA-1273 (Moderna) MD Jordi Mast Work Phone: [facility] 07-15-2020 COVID-19, Pfizer, PF , 30mcg/0.3mL Sue Win MD Work Phone: [facility] Work Phone: 05-03-2020 influenza virus vaccine, unspecified formulation Jordi MAST [facility] 05-03-2020 Influenza, injectabl e, Madin [place] Canine Kidney, preservative free, quadrivalent Sue Win MD Work Phone: [facility] Work Phone: 02-08-2020 pneumococcal conjuga te vaccine, 13 caitlin Win MD Work Phone: [facility] Work Phone: Payers Date Payer Category Payer Self-pay 2019 Unknown [employer] [address] xxxxxxxx 2019-Present [phone] [address] [place] [address] xxxxxxxx [id number] 1968 Unknown [id number] [id number] 1968 Unknown [id number] [id number] 1968 Unknown [id number] 2.16.840.1.699473.3.579.2.593 1968 Unknown [id number] 2.16.840.1.474614.3.579.2.593 1968 Unknown [id number] 2.16.840.1.134859.3.579.2.593 1968 Unknown [id number] 2.16.840.1.509273.3.579.2.593 1968 Unknown [id number] 2.16.840.1.078288.3.579.2.593 1968 Unknown [id number] 2.16.840.1.292177.3.579.2.593 1968 Unknown [id number] 2.16.840.1.889222.3.579.2.593 1968 Unknown [id number] 2.16.840.1.080703.3.579.2.727 1968 Unknown [id number] 2.16.840.1.599118.3.579.2.173 1959 Unknown [id number] 1.2.840.686626.1.13.239.2.7.3 .[id number] Unknown [id number] 2.16.840.1.957599.3.579.2.531 Unknown [id number] Social History Date Type Detail Facility Start: 02-25-2019 End: 07-12-2024 Tobacco smoking status NHIS Never smoker [facility] [place] [address] [place] Start: 02-25-2019 End: 07-12-2024 Alcohol intake Yes [facility] [place] Start: 1970 Sex Assigned At Not on file [facility] [place] Start: 07-30-2012 End: 07-12-2024 Tobacco use and exposure Smokeless tobacco non-user [employer] [facility] Phone: Start: 03-05-2021 End: 07-12-2024 Alcohol intake Current drinker of alcohol (finding) [facility] Phone: Tobacco smoking status Never [facility] Start: 1970 Sex Assigned At Female F [facility] Start: 07-12-2024 History of Social function [facility] Start: 06-07-2012 Sex Female (finding) [facility] Goals Date Patient Goal Desired Activity /State Functional Status Date Assessment Result Facility 02-02-2024 Functional Status N/A [facility] 07-22-2022 Functional Status N/A [facility] 11-21-2021 Functional Status N/A [facility] Clinical Notes 10-03-2021 to 02-02-2024 Note Date [...] include: ?8 oz (237 mL) of milk, omjefqk-thwcmwzrlifl-flizj milk, and calcium-fortifiedfruit juice. Calcium-fortified means that [...] ?Spinach (cooked), rhubarb, beets, sweet potatoes, and Wallisian chard. ?Peanuts. ?Potato chips, [place] citizen fries, and baked potatoes with skin on. ?Nuts and nut products. ?Chocolate. If you regularly take a diuretic medicine, make sure to eat at least 1 or 2 servings of fruits or vegetables that are high in potassium each day. These include: ?Avocado. ?Banana. ?Tillman, prune, carrot, or tomato juice. ?Baked potato. [...] magnesium, fish oil, or vitamin B6. Take bhmz-idi-mvpeqkh and prescription medicines only as told by [...] Casseroles. Pizza. Lasagna. Frozen meals. Potato chips. Vincentian fries. The items listed above may not [...] provider. Document Revised: 07/25/2022 Document Reviewed: 07/25/2022 [employer] Patient Education 2023 [employer]. Follow Up Care 01/27/2023 08:34:01 With:MANNIE ARREGUIN, Jordi Mckeon, URL Address: [address] [place], [place] [id number]- When: Unknown [facility] [place] 02-02-2024 Note Patient Education Nephrology Dietary Guidelines [...] ? 8 oz (237 mL) of milk, rotsehn-tjinahbjocxd-kbbnn milk, and calcium-fortifiedfruit juice. Calcium-fortified means that [...] Spinach (cooked), rhubarb, beets, sweet potatoes, and Wallisian chard. ? Peanuts. ? Potato chips, [place] citizen fries, and baked potatoes with skin on. ? Nuts and nut products. ? Chocolate. ? If you regularly take a diuretic medicine, make sure to eat at least 1 or 2 servings of fruits or vegetables that are high in potassium each day. These include: ? Avocado. ? Banana. ? Tillman, prune, carrot, or tomato juice. ? Baked [...] fish oil, or vitamin B6. ? Take bgjs-qzh-oteptte and prescription medicines only as told by your health care provider. These include suppleme (more content not included)... [facility] 02-10-2023 Evaluation note Encounter Date Diagnosis Assessment [...] Other specified postprocedural states (ICD-10 - Z98.890) [facility] Other 09-12-2023 Evaluation note* Encounter Date Diagnosis [...] Other specified postprocedural states (ICD-10 - Z98.890) [facility] Other 09-05-2023 Evaluation note* Encounter Date Diagnosis Assessment Notes Treatment Notes Treatment Clinical Notes Dec, Other specified postprocedural states (ICD-10 - Z98.890) [facility] Other 08-24-2023 Evaluation note* Encounter Date Diagnosis [...] right knee, subsequent encounter (ICD-10 - S83.241D) [facility] Other 07-31-2023 Evaluation note* Encounter Date Diagnosis [...] Pain in left knee (ICD-10 - M25.562) [facility] Other 03-27-2023 Hospital Discharge instructions Patient Education 07/22/2022 10:14:42 Kidney Stones, Cumh-hv-Gxud Kidney Stones Kidney stones are rock-like masses [...] Follow these instructions at home: Medicines Take ofop-prz-lspurhj and prescription medicines only as told by [...] 09/30/2008 Document Revised: 08/31/2019 Document Reviewed: 08/31/2019 [employer] Patient Education 2020 [employer]. Follow Up Care 12/26/2021 13:33:59 With:MANNIE ARREGUIN, Jordi Mckeon, CHANTALL Address: [facility] [address] [place] [address] When:01/22/2023 Comments:ANNAMARIE [facility] [place] [id number] Hospital Discharge instructions Patient Education 11/21/2021 12:49:44 Kidney Stones, Evyj-eu-Grdh Kidney Stones Kidney stones are rock-like masses [...] Follow these instructions at home: Medicines Take loec-dyd-vdlotft and prescription medicines only as told by [...] 09/30/2008 Document Revised: 08/31/2019 Document Reviewed: 08/31/2019 [employer] Patient Education 2019 E-[employer]. Follow Up Care 11/14/2021 08:29:10 With:MANNIE ARREGUIN, Jordi Mckeon, URL Address: [address] [place] [address] [place], [place] [id number]- When: Unknown [facility] 07-19-2022 NoteOPERATIVE NOTE OPERATION DATE: 11/13/2021 [...] placed per urethra. A well lubricated, 22 Vincentian cystourethroscope was passed into the bladder. Moderately tight at the bladder neck. Once into the bladder, teran endoscopy reveals no tumors or stones or diverticula. She does have a moderate cystocele present. Left retrograde pyelogram was then performed utilizing a 6 Vincentian open ended ureteral catheter. The distal ureter [...] and then over the wire a 4.8 Vincentian, 22-30 cm Microvasive double J stent was [...] procedure well. She was transferred to the rtoano and then back to PACU in satisfactory [...] the plan. CC: Sue Win M.D. : [facility] Signed and Approved by: DR JORDI MAST 11/29/2021 08:56:00[facility]06-08-2022 NotePROCEDURE: XR KNEE RT 4V or > COMPARISON: None. HISTORY: Pain in right knee FINDINGS: BONES:No acute fracture or dislocation. Mild osteoarthritis with marginal osteophyte formation SOFT TISSUES:Negative. No visible soft tissue swelling. EFFUSION:None visible. OTHER: Negative. IMPRESSION: Mild osteoarthritis Electronically authenticated by: KODY GARRISON Date: 2021-10-03 07:59[facility] No data available for this section [facility] Evaluation + Plan note Future Appointments Appointment Date:01/27/2023 08:00:00 AM Scheduled Provider:Jordi MAST MD Location:Replaced by [facility] Appointment Type:URO Office Visit [facility] Evaluation note* Diagnosis Vaginal discharge Leukorrhea, not specified as infective Women's annual routine gynecological examination documented in this encounter [facility] Work Phone: evaluation noteNo assessment information available [facility] Work Phone: Evaluation noteNo InformationNort [employer] Other Evaluation note* Diagnosis Women's annual routine gynecological examination documented in this encounter Robby Enriquez [facility] general Narrative - Reported* Type Description Date Medical History GERD Medical History Hypothyroidism [facility] Other History general Narrative - Reported* Type Description Date Medical History GERD Medical History Hypothyroidism Surgical History 1. LEFT knee arthros copy with partial medial meniscectomy 2. Chondral debridement medial femoral condyle, medial tibial plateau, medial patellar facet [facility] Other Progress note No data available for this section [facility] Assessments Diagnosis Women's annual routine gynecological examination Advance Directives No Advanced Directives Records FoundDocuments on File Type Date Recorded Patient Customer Counter Representative Expl anation Advance Directives and Living Will Power of Visual And Stock Associate Documents on File Type Date Recorded Patient Customer Counter Representative Expl anation ACP-Advance Directive ACP-Power of Visual And Stock Associate Advance Directive Response Recorded Date/ Time Advance Directives No November 26 022 11:36am Advance Directive Response Recorded Date/ Time [...] Care Teams (unrecognized sec tion and content) Casey Saw Operator Relationship Specialty Start Date End Date Sue Win MD [address] [phone] PCP - General Family Medicine 01/16/16 Team [...] Active Shubham Rodrigues MD Attending Provider Active Casey Saw Operator Relationship Specialty Start Date End Date Sue Win MD [address] [place] [address] PCP - General Family Medicine 01/16/16 INFORMATION SOURCE (unrecogn ized section and content) DATE CREATED AUTHOR 08/18/2022 [facility] DATE CREATED AUTHOR AUTHOR'S ORGANIZ ATION 02/07/2023 [facility] DATE CREATED AUTHOR AUTHOR'S ORGANIZ ATION 02/04/2024 [facility] DATE CREATED AUTHOR AUTHOR'S ORGANIZ ATION [facility] REASON FOR VISIT (unrecogniz ed section and [...] BE BASED ON THE PRIMARY CLINICAL RECORDS. [facility]. provides no warranty or guarantee of the accuracy or completeness of information in this document.
--- NOTE | 2024-11-14 07:49 | ED_ITS ---
HPI - Abdominal Pain General Chief Complaint: Abdominal Pain Stated Complaint: FLANK PAIN Time Seen by Provider: 11/14/24 07:36 Source: patient Mode of arrival: walk-in Limitations: no limitations History of Present Illness HPI narrative: The patient is a 54-year-old female is coming to the ER with a abdominal pain that started almost 2 hours ago when she woke up in the morning, patient have a history of kidney stone and she mentioned that right now she is having right flank pain and right lower quadrant pain that radiates to the back that could be secondary to another kidney stone Patient also mentioned that she has some nausea she denies any pain over the last few days she also denies any fever Related Data Home Medications �Medication �Instructions �Recorded �Confirmed diclofenac sodium 75 mg 75 mg PO Q12H 11/14/2411/14 tablet,delayed release dicyclomine 20 mg tablet 20 mg PO DAILY 11/14/2410/27 levothyroxine 50 mcg tablet 50 mcg PO DAILY 11/14/24 0 11/14/24 liothyronine 5 mcg tablet 5 mcg PO DAILY 11/14/2410/27 Previous Rx's �Medication �Instructions �Recorded cefuroxime axetil 500 mg tablet 500 mg PO BID 7 days # 14 tabs 11/14/24 oxycodone-acetaminophen 5 mg-325 1 tab PO Q8H PRN pain 3 days #9 11/14/24 mg tablet (Percocet) tabs tamsulosin 0.4 mg capsule (Flomax) 0.4 mg PO DAILY #10 caps 11/14/24 Allergies Allergy/AdvReac Type Severity Reaction Status Date / Time No Known Drug Allergies Allergy Verified 11/14/24 07:34 Review of Systems ROS Status of ROS 10 or more systems reviewed and unremark able except as noted in history and below PFSH PFSH Social History Little interest or pleasure in doing things: not at all Feeling down, depressed, or hopeless: not at all Exam Narrative Exam Narrative: Nurses notes and vital signs reviewed and patient is not hypoxic. General: Well-appearing and in no apparent distress. Skin: Warm, dry, no pallor noted. No rash. Head: Normocephalic, atraumatic. Neck: Supple, non-tender. Cardiovascular: Regular Rate and Rhythm without murmur, gallop or rub. Respiratory: No accessory muscle use or respiratory distress. Lungs are clear to auscultation, no wheezing, rales or rhonchi Chest Wall: no tenderness Back: No midline thoracic or lumbar vertebral tenderness. Right CVA tenderness Musculoskeletal: normal ROM, no calf or popliteal tenderness, no lower extremity edema/swelling GI: Abdomen is soft, non-distended. Normal bowel sounds. Right lower quadrant tenderness on palpation negative McBurney and negative M urphy Neurological: A&O x4. No cranial nerve dysfunction observed. Constitutional Vital Signs, click to edit/add: Last Vital Signs Temp 97.8 F 11/14/24 07:34 Pulse 82 11/14/24 07:34 Resp 18 11/14/24 07:34 BP 150/84 H 11/14/24 08:39 Pulse Ox 100 11/14/24 07:34 O2 Del Method Room Air 11/14/24 07:34 Course Vital Signs Vital signs: Vital Signs Temperature 97.8 F 11/14/24 07:34 Pulse Rate 82 11/14/24 07:34 Respiratory Rate 18 11/14/24 07:34 Blood Pressure 180/100 H 11/14/24 07:34 Pulse Oximetry 100 11/14/24 07:34 Oxygen Delivery Method Room Air 11/14/24 07:34 Temperature 97.8 F 11/14/24 07:34 Pulse Rate 82 11/14/24 07:34 Respiratory Rate 18 11/14/24 07:34 Blood Pressure 150/84 H 11/14/24 08:39 Pulse Oximetry 100 11/14/24 07:34 Oxygen Delivery Method Room Air 11/14/24 07:34 MDM - Abdominal Pain MDM Narrative Medical decision making narrative: On arrival the patient provided Toradol and Zofran ct abd and pelvis showed : 5 mm x 7 mm calculus right ureteral pelvic junction with adjacent haziness and hydronephrosis Additional bilateral calculi, nonobstructive. The patient CBC and chemistry showed no acute pathology but the urine shows signs of UTI The patient was started with ceftriaxone here in the ER and discharged home with cefuroxime and Flomax in addition to pain medication with the Percocet as she was continued to take her Voltaren from home Patient was instructed about the importance of monitoring symptom for the next 24 hours including fever and abdominal pain in case of any new symptoms she is to come back to the ER The patient also to call Dr. Chand on Friday for an appointment The patient is to follow up with primary care physician in next 2-3 days or to return to the emergency department should any of the signs or symptoms worsen or new symptoms develop. The patient agrees with the following Diagnosis and Treatment plan and the patient will be discharged home. Lab Data Labs: Lab Results 11/14/24 11/14/24 Range/Units 07:40 08:35 WBC 10.7 (4.0-11.0) 10^3/uL RBC 4.45 (4.20-5.40) 10^6/uL Hgb 12.9 (12.0-16.0) g/dL Hct 39.7 (36.0-48.0) % MCV 89.2 (81.0-99.0) fL MCH 29.0 (26.7-34.0) pg MCHC 32.5 (29.9-35.2) g/dL RDW 13.8 (11.0-15.0) % Plt Count 358 (150-450) 10^3/uL MPV 9.0 L (9.5-13.5) fL Neut % (Auto) 81.4 H (43.0-75.0) % Lymph % (Auto) 13.4 L (20.5-60.0) % [place] % (Auto) 2.6 (1.7-12.0) % Eos % (Auto) 1.7 (0.9-7.0) % Baso % (Auto) 0.5 (0.2-2.0) % Neut # (Auto) 8.7 H (1.4-6.5) 10^3/uL Lymph # (Auto) 1.4 (1.2-3.8) 10^3/uL [place] # (Auto) 0.3 (0.3-0.8) 10^3/uL Eos # (Auto) 0.2 (0.0-0.7) 10^3/uL Baso # (Auto) 0.1 (0.0-0.1) 10^3/uL Abs Immat Gran (auto) 0.04 H (0.00-0.03) 10^3/uL Imm/Tot Granulo (auto) 0.4 (0.0-0.5) % Sodium 146 H (136-145) mmol/L Potassium 3.8 (3.5-5.1) mmol/L Chloride 106 (98-107) mmol/L Carbon Dioxide 29.3 (21.0-32.0) mmol/L Anion Gap 14.5 BUN 21.0 H (7.0-18.0) mg/dL Creatinine 0.87 (0.55-1.02) mg/dL Est GFR ( Amer) >60 (>=60 mL/min/1.73m^2) Est GFR (Non-Af Amer) >60 (>=60 mL/min/1.73m^2) BUN/Creatinine Ratio 24.1 Glucose 109 H (74-106) mg/dL Calcium 9.1 (8.5-10.1) mg/dL Total Bilirubin 0.3 (0.2-1.0) mg/dL AST 24 (15-37) U/L ALT 43 (14-59) U/L Alkaline Phosphatase 161 H (46-116) U/L Total Protein 7.2 (6.4-8.2) g/dL Albumin 3.3 L (3.4-5.0) g/dL Globulin 3.9 g/dL Albumin/Globulin Ratio 0.8 Urine Color Lt. yellow (YELLOW) Urine Clarity Sl cloudy (CLEAR) Urine pH 6.0 (5.0-9.0) Ur Specific [place] >=1.030 A (1.005-1.025) Urine Protein 30 A (NEG/TRACE) mg/dL Urine Glucose (UA) Negative (NEGATIVE) mg/dL Urine Ketones Negative (NEGATIVE) mg/dL Urine Occult Blood Large A (NEGATIVE) Urine Nitrite Negative (NEGATIVE) Urine Bilirubin Negative (NEGATIVE) Urine Urobilinogen 0.2 (0.2-1.0) EU/dL Ur Leukocyte Esterase Moderate A (NEGATIVE) Urine RBC 20-50 A (0-2) #/HPF Urine WBC 50-75 A (NONE SEEN) #/HPF Ur Squamous Epith Cells Few A (NONE/RARE) #/LPF Ur Transition Epith Cell Rare A (NONE SEEN) #/LPF Urine Crystals None seen (None Seen) #/HPF Urine Bacteria Moderate A (NONE SEEN) #/HPF Urine Casts None seen (NONE SEEN) #/LPF Urine Mucus Trace A (NONE SEEN) Ur [place] Discharge Chief Complaint: Abdominal Pain Clinical Impression: Calculus of kidney, Hydronephrosis of right kidney, UTI (urinary tract infection) Patient Disposition: Home, Self-Care Time of Disposition Decision: 09:23 Condition: Good Mode of Transportation: Private Vehicle Prescriptions / Home Meds: New cefuroxime axetil 500 mg tablet 500 mg PO BID 7 Days Qty: 14 0RF oxycodone-acetaminophen [Percocet] 5-325 mg tablet 1 tab PO Q8H PRN (Reason: pain) 3 Days Qty: 9 0RF tamsulosin [Flomax] 0.4 mg capsule 0.4 mg PO DAILY Qty: 10 0RF No Action liothyronine 5 mcg tablet 5 mcg PO DAILY dicyclomine 20 mg tablet 20 mg PO DAILY levothyroxine 50 mcg tablet 50 mcg PO DAILY diclofenac sodium 75 mg tablet,delayed release (DR/EC) 75 mg PO Q12H Print Language: Persian Instructions: Kidney Stones (ED), Urinary Tract Infection in Women (DC), Hydronephrosis (ED) Referrals: Neymar Win MD [Primary Care Provider, Family Practice] - 1 week Eros Chand MD [Physician] - 11/15/24 Discharge Date/Time: 11/14/24 10:05
--- OUTSIDE RECORDS SUMMARY | 2024-11-14 07:49 | XMS_ITS | Patient Health Record ---
Author Organization [facility] in [place] Address [address] [place] [address] Care Team Providers Care [employer] Field Name Role Phone Orion Erwin Primary Care Provider [phone] AnaCamille dasilva Unavailable [phone] Allergies No Known Allergies Results Component Value Reference Range Notes UA DIP NONAUTO WO MICRO (810 02) - IN OFFICE (Not yet reviewed by provider) Interpretation: Performing Lab: Notes/Report: COLOR orange CLARITY clear GLUCOSE neg BILIRUBIN neg KETONE neg SPECIFIC GRAVITY 1.005 BLOOD trace PH 5 PROTEIN trace UROBILINOGEN neg NITRITE neg LEUKOCYTE ESTERASE large US breast LT limited Reviewed date:02/17/2024 08:56:55 AM Interpretation: Performing Lab: Notes/Report: Source Facility: [place] [address] Ultrasound Report Signed Patient: KAROL MARCOS MR#: [id number] : 1970 Acct:[id number] Age/Sex: 53 / F ADM Date: 02/17/24 Loc: RAD Attending Dr: Sue Erwin M.D. Ordering Physician: Sue Erwin M.D. Date of Service: 02/17/24 Procedure(s): US breast LT limited Accession Number(s): [id number] cc: Sue Erwin M.D. Patient Name: KAROL MARCOS MR#: [id number] : 1970 Exam Date: 02/17/2024 Ordering Doctor: DR Sue Ewrin . RADIOLOGY REPORT PROCEDURE: US BREAST LT LIMITED COMPARISON: MM TOMOSYNTHESIS SCREENING BI, 04/30/2023. MM DIAGNOSTIC MAMMO UNILAT RT, 05/13/2023. INDICATIONS: CHEST WALL PAIN TECHNIQUE: Breast ultrasound was performed, with evaluation focusing only on specific areas of concern. FINDINGS: DIAGNOSTIC CATEGORY 0--INCOMPLETE: NEED ADDITIONAL IMAGING EVALUATION. Ultrasound in the region of the patient's pain, 12 o'clock position demonstrates dilated ducts measuring up to 2.1 mm. Consider follow-up diagnostic mammogram for further evaluation RECOMMENDATIONS: ADDITIONAL MAMMOGRAPHIC VIEWS REQUIRED: BILATERAL BREASTS - diagnostic mammogram PLEASE NOTE: A NORMAL ULTRASOUND EXAMINATION DOES NOT EXCLUDE THE POSSIBILITY OF BREAST CANCER. A CLINICALLY SUSPICIOUS PALPABLE LUMP SHOULD BE BIOPSIED. Dictated by: Elijah Ricks MD on 02/17/2024 at 07:54 Approved by: Elijah Ricks MD on 02/17/2024 at 07:57 Dictated By: Elijah Ricks M.D. Signed By: 02/17/24 0758 DD/ 0757 TD/TT: Newspaper Journalist: [place] [address] Ultrasound Report Signed Patient: RYAN MARCOS RA MR#: [id number] : 1970 Acct:[id number] Age/Sex: 53 / F ADM Date: 02/17/24 Loc: RAD Attending Dr: Sue Erwin M.D. Ordering Physician: Sue Erwin M.D. Date of Service: 02/17/24 Procedure(s): US bianca ast LT limited Accession Number(s): [id number] cc: Sue Erwin M.D. Patient Name: KAROL MARCOS MR#: [id number] : 1970 Exam Date: 02/17/2024 Ordering Doctor: DR Sue Erwin . RADIOLOGY REPORT PROCEDURE: US BREAST LT LIMITED COMPARISON: MM TOMOS YNTHESIS SCREENING BI, 04/30/2023. MM DIAGNOSTIC MAMMO UNILAT RT, 05/13/2023. INDICATIONS: CHEST WALL PAIN TECHNIQUE: Breast ul trasound was performed, with evaluation focusing only on specific areas of concern. FINDINGS: DIAGNOSTIC CATEGORY 0--INCOMPLETE: NEED ADDITIONAL IMAGING EVALUATION. Ultrasound in the re gion of the patient's pain, 12 o'clock position demonstrates dilated ducts measuring up to 2.1 mm. Consider follow-up diagnostic mammogram for further evaluation RECOMMENDATIONS: ADDITIONAL MAMMOGRAP HIC VIEWS REQUIRED: BILATERAL BREASTS - diagnostic mammogram PLEASE NOTE: A JOSE L ULTRASOUND EXAMINATION DOES NOT EXCLUDE THE POSSIBILITY OF BREAST CANCER. A CLINICALLY SUSPICIOUS PALPABLE LUMP SHOULD BE BIOPSIED. Dictated by: Elijah thomas MD on 02/17/2024 at 07:54 Approved by: Elijah thomas MD on 02/17/2024 at 07:57 Dictated By: Elijah Ricks M.D. Signed By: 02/17/24 0758 DD/ 0757 TD/TT: Newspaper Journalist: XR abdomen 1V Reviewed date:01/31/2024 09:46:20 PM Interpretation: Performing Lab: Notes/Report: Source Facility: [place] [address] [place] [address] XRay Report Signed Patient: KAROL MARCOS MR#: [id number] : 1970 Acct:[id number] Age/Sex: 53 / F ADM Date: 01/30/24 Loc: RAD Attending Dr: Eros Chand M.D. Ordering Physician: Eros Chand M.D. Date of Service: 01/30/24 Procedure(s): XR abdomen 1V Accession Number(s): [id number] cc: Eros Chand M.D.; Sue Erwin M.D. [place] [address] Patient Name: KAROL MARCOS MRN: [id number] date: 1970 Sex: F Assigned Patient Location: RAD Current Patient Location: RAD Accession/Order Number: [id number] Exam Date: 01/30/2024 07:18 Report Date: 01/30/2024 07:51 At the request of: EROS CHAND Procedure: XR abdomen 1V EXAMINATION: XR abdomen 1V HISTORY: Kidney Stone COMPARISON: XR abdomen 01/23/2023 FINDINGS: KIDNEY/URETER - RIGHT: No visible renal or ureteral calcifications. KIDNEY/URETER - LEFT: No visible renal or ureteral calcifications. PELVIS: No visible ureteral stones. Stable pelvic calcifications favoring phleboliths. BOWEL: No abnormal dilation or deviation. BONES: No acute abnormality. OTHER: Negative. No abnormal gaseous collections. XR/XR abdomen 1V IMPRESSION: 1. No appreciable urinary tract calculi. Electronically authenticated by: TUCKER ENGLISH Date: 01/30/2024 07:51 Dictated By: Tucker English M.D. Signed By: 01/30/24753 DD/ 0 TD/TT: Newspaper Journalist: [place] [address] XRay Report Signed Patient: RYAN MARCOS RA MR#: [id number] : 1970 Acct:[id number] Age/Sex: 53 / F ADM Date: 01/30/24 Loc: RAD Attending Dr: Eros Chand M.D. Ordering Physician: Eros Chand M.D. Date of Service: 01/30/24 Procedure(s): XR abdomen 1V Accession Number(s): [id number] cc: Eros Chand M.D; Sue Erwin M.D. [place] [address] Patient Name: KAROL MARCOS MRN: [id number] date: 1970 Sex: F Assigned Patient Location: [facility] Current Patient Location: [facility] Accession/Order Numb er: [id number] Exam Date: 07:18 Report Date: 01/30/2024 07:51 At the request of: EROS CHAND Procedure: XR abdomen 1V EXAMINATION: XR abdomen 1V HISTORY: Kidney Stone COMPARISON: XR abdom en 01/23/2023 FINDINGS: KIDNEY/URETER - RIGH T: No visible renal or ureteral calcifications. KIDNEY/URETER - LEFT : No visible renal or ureteral calcifications. PELVIS: No visible u reteral stones. Stable pelvic calcifications favoring phleboliths. BOWEL: No abnormal d ilation or deviation. BONES: No acute abnormality. OTHER: Negative. No abnormal gaseous collections. X R/XR abdomen 1V IMPRESSION: 1. No appreciable ur inary tract calculi. Electronically authe nticated by: TUCKER ENGLISH Date: 01/30/2024 07:51 Dictated By: Tucker English M.D. Signed By: 01/30/24753 DD/ 0 TD/TT: Newspaper Journalist: XR chest 2V Reviewed date:02/17/2024 04:34:28 PM Interpretation: Performing Lab: Notes/Report: Source Facility: [place] [address] XRay Report Signed Patient: KAROL MARCOS MR#: [id number] : 1970 Acct:[id number] Age/Sex: 53 / F ADM Date: 02/17/24 Loc: RAD Attending Dr: Sue Erwin M.D. Ordering Physician: Sue Erwin M.D. Date of Service: 02/17/24 Procedure(s): XR chest 2V Accession Number(s): [id number] cc: Sue Erwin M.D. [place] [address] Patient Name: KAROL MARCOS MRN: [id number] date: 1970 Sex: F Assigned Patient Location: [facility] Current Patient Location: [facility] Accession/Order Number: [id number] Exam Date: 02/17/2024 07:32 Report Date: 02/17/2024 09:30 At the request of: SUE ERWIN Procedure: XR chest 2V PROCEDURE: XR chest 2V DATE: 02/17/2024 6:32 AM CDT COMPARISONS: 11/13/2021 CLINICAL INDICATION: 53 years Female CHEST WALL PAIN FINDINGS: The cardiomediastinal silhouette and pulmonary vasculature are within normal limits. The lungs are clear. There is no evidence of pleural effusion or pneumothorax. XR/XR chest 2V IMPRESSION: Chest radiograph is within normal limits. Electronically authenticated by: CHAPARRO JAMES Date: 02/17/2024 09:30 Dictated By: Chaparro James M.D. Signed By: 02/17/2433 DD/ 9 TD/TT: Newspaper Journalist: [place] [address] XRay Report Signed Patient: RYAN MARCOS RA MR#: [id number] : 1970 Acct:[id number] Age/Sex: 53 / F ADM Date: 02/17/24 Loc: RAD Attending Dr: Sue Erwin M.D. Ordering Physician: Sue Erwin M.D. Date of Service: 02/17/24 Procedure(s): XR chest 2V Accession Number(s): [id number] cc: Sue Erwin M.D. [place] [id number] Patient Name: KAROL MARCOS MRN: [id number] date: 1970 Sex: F Assigned Patient Location: [facility] Current Patient Location: [facility] Accession/Order Numb er: [id number] Exam Date: 07:32 Report Date: 02/17/2024 09:30 At the request of: SUE ERWIN Procedure: XR chest 2V PROCEDURE: XR chest 2V DATE: 02/17/2024 6:32 AM CDT COMPARISONS: 11/13/2021 CLINICAL INDICATION: 53 years Female CHEST WALL PAIN FINDINGS: The cardiomediastina l silhouette and pulmonary vasculature are within normal limits. The lungs are clear. There is no evidence of pleural effusion or pneumothorax. X R/XR chest 2V IMPRESSION: Chest ra diograph is within normal limits. Electronically authe nticated by: CHAPARRO JAMES Date: 02/17/2024 09:30 Dictated By: Chaparro James M.D. Signed By: 02/17/24932 DD/ 9 TD/TT: Newspaper Journalist: ZOIL[facility] tomosynthesis diagnostic BI Reviewed date:02/24/2024 08:59:21 PM Interpretation: Performing Lab: Notes/Report: Source Facility: [place] [address] [place] [address] Mammography Report Signed Patient: KAROL MARCOS MR#: [id number] : 1970 Acct:[id number] Age/Sex: 53 / F ADM Date: 02/24/24 Loc: MAMMO Attending Dr: Sue Erwin M.D. Ordering Physician: Sue Erwin M.D. Results: Date of Service: 02/24/24 Follow Up: Procedure(s): MM tomosynthesis diagnostic BI Accession Number(s): [id number] cc: Sue Erwin M.D. Patient Name: KAROL MARCOS MR#: [id number] : 1970 Exam Date: 02/24/2024 Ordering Doctor: DR Sue Erwin . RADIOLOGY REPORT PROCEDURE: MM TOMOSYNTHESIS DIAGNOSTIC BI COMPARISON: US BREAST LT LIMITED, 02/17/2024. MM TOMOSYNTHESIS DIAGNOSTIC RT, 10/16/2023. MM DIAGNOSTIC MAMMO UNILAT RT, 05/13/2023. MM TOMOSYNTHESIS SCREENING BI, 04/30/2023. MG MAMM SCREEN 3D ANN-MARIE CAD, 03/27/2022. INDICATIONS: left breast pain, abnormal breast ultrasound Calculator Name NCI Breast Cancer Risk Assessment Tool 5 Year Breast Cancer Risk 2.00% Lifetime Breast Cancer Risk 13.30% Personal Breast Cancer No Personal Ovarian Cancer No Treatments None Family Cancers Father with bone prostate cancer at age 69. LOCATION: The BREAST COMPOSITION: The breasts are heterogeneously dense,which may obscure small masses. FINDINGS: DIAGNOSTIC CATEGORY 2--BENIGN FINDING: RIGHT BREAST: No significant suspicious finding. Scattered benign-appearing lymph nodes are present. Scattered benign-appearing calcifications are present. Stable asymmetric fibroglandular tissue posterior upper-outer quadrant. No significant change has occurred. LEFT BREAST: No significant suspicious finding. No significant change has occurred. No abnormal findings to correspond to prior ultrasound study where there was minimally dilated subareolar ducts. Annual screening mammography is recommended. RECOMMENDATIONS: ROUTINE MAMMOGRAM AND CLINICAL EVALUATION IN 12 MONTHS. PLEASE NOTE: A NORMAL MAMMOGRAM DOES NOT EXCLUDE THE POSSIBILITY OF BREAST CANCER. A CLINICALLY SUSPICIOUS PALPABLE LUMP SHOULD BE BIOPSIED. Dictated by: Tucker English M.D. on 02/24/2024 at 13:34 Approved by: Tucker English M.D. on 02/24/2024 at 14:30 Dictated By: Tucker English M.D. Signed By: 02/24/24 143 DD/ 30 TD/TT: Newspaper Journalist: [place] [address] Mammography Report Signed Patient: RYAN MARCOS RA MR#: [id number] : 1970 Acct:[id number] Age/Sex: 53 / F ADM Date: 02/24/24 Loc: MAMMO Attending Dr: Sue Erwin M.D. Ordering Physician: Sue Erwin M.D. Results: Date of Service: Follow Up: Procedure(s): MM iván osynthesis diagnostic BI Accession Number(s): [id number] cc: Sue Erwin M.D. Patient Name: KAROL MARCOS MR#: [id number] : 1970 Exam Date: 02/24/2024 Ordering Doctor: DR Sue Erwin . RADIOLOGY REPORT PROCEDURE: MM TOMOSY NTHESIS DIAGNOSTIC BI COMPARISON: US BREAS T LT LIMITED, 02/17/2024. MM TOMOSYNTHESIS DIAGNOSTIC RT, 10/16/2023. MM DI AGNOSTIC MAMMO UNILAT RT, 05/13/2023. MM TOMOSYNTHESIS SCREENING BI, 024. MG MAMM SCREEN 3D ANN-MARIE CAD, 03/27/2022. INDICATIONS: left br east pain, abnormal breast ultrasound Calculator Name NCI Breast Cancer Risk Assessment Tool 5 Year Breast Cancer Risk 2.00% Lifetime Breast Canc er Risk 13.30% Personal Breast Cancer No Personal Ovarian Cancer No Treatments None Family Cancers Fathe r with bone prostate cancer at age 69. LOCATION: The BREAST COMPOSITION: The breasts are heterogeneously dense,which may obscure small masses. FINDINGS: DIAGNOSTIC CATEGORY 2--BENIGN FINDING: RIGHT BREAST: No sig nificant suspicious finding. Scattered benign-appearing lymph nodes are pres ent. Scattered benign-appearing calcifications are present. Stable asym metric fibroglandular tissue posterior upper-outer quadrant. No signifi cant change has occurred. LEFT BREAST: No sign ificant suspicious finding. No significant change has occurred. No abnorma l findings to correspond to prior ultrasound study where there was minimally dilated subareolar ducts. Annual screening mammography is recommended. RECOMMENDATIONS: ROUTINE MAMMOGRAM AN D CLINICAL EVALUATION IN 12 MONTHS. PLEASE NOTE: A JOSE L MAMMOGRAM DOES NOT EXCLUDE THE POSSIBILITY OF BREAST CANCER. A CLINICALLY SUSPICIOUS PALPABLE LUMP SHOULD BE BIOPSIED. Dictated by: Tucker English M.D. on 02/24/2024 at 13:34 Approved by: Tucker English M.D. on 02/24/2024 at 14:30 Dictated By: Tucker Englihs M.D. Signed By: 02/24/241430 DD/ 30 TD/TT: Newspaper Journalist: MIN sophia perf SPECT rest str Reviewed date:12/03/2023 08:38:05 PM Interpretation: Performing Lab: Notes/Report: Source Facility: [place] [address] Nuclear Medicine Report Signed Patient: KAROL MARCOS MR#: [id number] : 1970 Acct:[id number] Age/Sex: 53 / F ADM Date: 12/02/23 Loc: NM Attending Dr: Sue Erwin M.D. Ordering Physician: Sue Erwin M.D. Date of Service: 12/02/23 Procedure(s): NM sophia perf SPECT rest str Accession Number(s): [id number] cc: Sue Erwin M.D. Patient Name: KAROL MARCOS MR#: [id number] : 1970 Exam Date: 12/02/2023 Ordering Doctor: DR Sue Erwin . RADIOLOGY REPORT PROCEDURE: NM SOPHIA PERF SPECT REST STR COMPARISON: None. INDICATIONS: HYPERTENSION, CHEST PAIN TECHNIQUE: Exam Description: Stress/Rest one day protocol gated SPECT Rest Imagin.0 mCi Tc-99m Cardiolite IV on 12/02/2023 Stress Imaging 31.3 mCi Tc-99m Cardiolite IV on 12/02/2023 Exercise Protocol: 0.4 mg Lexiscan given IV Heart Rate (bpm): Rest: 93 Max: 150 PMHR: 90 Blood Pressure: Rest: 160/90 Max: 178/88 Exercise Time: Minutes: 4 Seconds: 34 Stage Reached: Stage: 2 Mets 4.6 Symptoms: Rest and peak stress ECG findings were normal and the exercise portion of the study was normal per attending physician Dr. Marin . For more details please see separate cardiac stress test report. FINDINGS: QUALITY OF STUDY: Excellent. PERFUSION DEFECT: None. LOCATION: N/A SIZE: N/A. SEVERITY: N/A. TYPE: N/A. WALL MOTION: Normal. LV SIZE: Normal. 54 mL. TID / TCD: None; 0.6 LVEF: Normal. Calculated EF 84%. SUMMARY: Myocardial perfusion imaging study is NORMAL. CONCLUSION: 1. Normal nuclear medicine myocardial perfusion scan. Dictated by: Tucker English M.D. on 12/03/2023 at 13:46 Approved by: Tucker English M.D. on 12/03/2023 at 13:51 Dictated By: Tucker English M.D. Signed By: 12/03/23 1352 DD/ 1351 TD/TT: Newspaper Journalist: [place] [address] Nuclear Medicine Report Signed Patient: RYAN MARCOS RA MR#: [id number] : 1970 Acct:[id number] Age/Sex: 53 / F ADM Date: 12/02/23 Loc: NM Attending Dr: Sue Erwin M.D. Ordering Physician: Sue Erwin M.D. Date of Service: 12/02/23 Procedure(s): NM sophia perf SPECT rest str Accession Number(s): [id number] cc: Sue Erwin M.D. Patient Name: KAROL MARCOS MR#: [id number] : 1970 Exam Date: 12/02/2023 Ordering Doctor: DR Sue Erwin . RADIOLOGY REPORT PROCEDURE: NM SOPHIA PE RF SPECT REST STR COMPARISON: None. INDICATIONS: HYPERTE NSION, CHEST PAIN TECHNIQUE: Exam Description: St ress/Rest one day protocol gated SPECT Rest Imagin.0 m Ci Tc-99m Cardiolite IV on 12/02/2023 Stress Imaging 31.3 mCi Tc-99m Cardiolite IV on 12/02/2023 Exercise Protocol: 0 .4 mg Lexiscan given IV Heart Rate (bpm): Re st: 93 Max: 150 PMHR: 90 Blood Pressure: Rest : 160/90 Max: 178/88 Exercise Time: Minut es: 4 Seconds: 34 Stage Reached: Stage : 2 Mets 4.6 Symptoms: Rest and peak stress ECG findings were normal and the exercise portion of the study was normal per attending physician Dr. Marin . For more details please see separate cardiac stress test report. FINDINGS: QUALITY OF STUDY: Excellent. PERFUSION DEFECT: None. LOCATION: N/A SIZE: N/A. SEVERITY: N/A. TYPE: N/A. WALL MOTION: Normal. LV SIZE: Normal. 54 mL. TID / TCD: None; 0.6 LVEF: Normal. Calcu lated EF 84%. SUMMARY: Myocardial perfusion imaging study is NORMAL. CONCLUSION: 1. Normal nuclear me dicine myocardial perfusion scan. Dictated by: Tucker English M.D. on 12/03/2023 at 13:46 Approved by: Tucker English M.D. on 12/03/2023 at 13:51 Dictated By: Tucker English M.D. Signed By: 12/03/23 1352 DD/ 1351 TD/TT: Newspaper Journalist: Reason For Referral No Information Medications Medication SIG (Take, Route, Frequency, Duration) Notes Start Date End Date Status Cefdinir 300 MG 2 capsule Orally onc e a day for 10 days 06/24/2024 Active Diclofenac Sodium 75 MG TAKE 1 TABLET BY MOUTH TWICE A DAY for 30 Active Liothyronine Sodium 5 MCG TAKE 1 TABLET BY MOUTH EVERY DAY ON EMPTY STOMACH FOR 30 DAYS for 90 Active Lisinopril 20 MG 1 tablet Orally Once a day for 30 days Active Levothyroxine Sodium 50 MCG TAKE 1 TABLE T BY MOUTH EVERY DAY for 90 Active Dicyclomine HCl 20 MG TAKE 1 TABLET BY M OUTH TWICE A DAY for 90 Active Pyridium 200 MG 1 tablet after meals Orally Three times a day for 2 days 06/24/2024 Active [facility] Esomeprazole Magnesium 20 MG TAKE 2 CAP Orally Once a day for 21 days Active Social History Tobacco Use: Social History Observation Description Date Details (start date - stop date) Never Smoker NA - NA Tobacco Use/Smoking Question Answer Notes Patient is a nonsmoker Alcohol Screen (Audit-C) Question Answer Notes Did you have a drink contain ing alcohol in the past year? Yes How often did you have 6 or more drinks on one occasion in the past year? Never (0 point) How many drinks did you have on a typical day when you were drinking in the past year? 1 or 2 drinks (0 point) How often did you have a dri nk containing alcohol in the past year? Less than monthly (1 point) Points 1 Interpretation Negative AUDIT-C (Standard) Question Answer Notes Did you have a drink containing alcohol in the p ast year? No Points 0 Interpretation Negative Problems Problem Type SNOMED Code ICD Code Onset Dates Problem Status W/U Status Risk Notes Problem Low back pain (390316164) Low back pain (M54.5) Active confirmed Problem 56695744 Hypothyroidism, unspecified (E03.9) Active confirmed Problem 72957132 Other chronic pain (G89.29) Active confirmed Problem 9977844469629785 Unilateral primary osteoarthritis, left knee (M17.12) Active confirmed Problem 704939753 Complex tear of medial meniscus, current injury, left knee, initial encounter (S83.232A) Active confirmed Problem Chest pain (59750711) Chest pain (R07.9) Active confirmed Problem Hypertension (73380788) Hypertension (I10) Active confirmed Problem Eczema (83655804) Eczema (L30.9) Active confirm ed Problem Thyroid nodule (725847601) Thyroid nodule (E04.1) Active confirmed Problem Well adult (044829321) Well adult (Z00.00) Active confirmed Problem Seasonal allergic rhinitis (705498758) Seasonal allergic rhinitis (J30.2) Active confirmed Problem Chest wall pain (365886597) Chest wall pain (R07.89) Active confirmed Problem Multinodular goiter (933606081) Multinodular goiter (E04.2) Active confirmed Problem Diverticula of intestine (39685696) 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) Active confirmed Problem Renal cyst (809373879) Renal cyst (N28.1) Active confirmed Problem Gastric reflux (824102623) Gastric reflux (K21.9) Active confirmed Vital Signs Temperature 98.1 degrees Fahrenheit 06/24/2024 Blood pressure diastolic 72 mm Hg 06/24/2024 Height 65 in 06/24/2024 Blood pressure systolic 108 mm Hg 06/24/2024 Weight 240.4 lbs 06/24/2024 BMI 40 kg/m2 06/24/2024 Procedures Procedure Date Ordered Date Performed Result Body Sit e ECG with Interpretation 11/21/2023 N/A Encounters Encounter Location Date Provider Diagnosis [facility] ([place], [place]) [address] [place] [address] 02/11/2024 Orion Hoy Chest wall pain R07. 89 [facility] ([place], [place]) [address] [place] [address] 06/24/2024 Orion Hoy Right flank pain R10 .9 ; UTI (urinary tract infection), uncomplicated N39.[address] [facility] ([place], [place]) [address] [place] [address] 11/21/2023 Orion Hoy Hypertension I10 and Chest pain R07.9 [facility] ([place], [place]) [address] [place] [address] 12/03/[address] [facility] ([place], [place] [address] [place] [address] 02/17/2024 Orion Hoy Abnormal mammogram R92.8 [facility] ([place], [place]) [address] [facility] [place] [address] 02/17/[address] [facility] ([place], [place] [address] [facility] [place] [address] 02/24/2024 Camille Perez Assessments Encounter Date Diagnosis (ICD Code) Assessment Notes Treatment Notes Treatment Clinical Notes Section Notes 11/21/2023 Hypertension (ICD-10 - I10) 11/21/2023 Chest pain (ICD-10 - R07.9) + FH CAD, getting chest pressure with activity and less activity causing it - needs stress cardiolyte 02/11/2024 Chest wall pain (ICD-10 - R07.89) 06/24/2024 Right flank pain (ICD-10 - R10.9) 02/17/2024 Abnormal mammogram (ICD-10 - R92.8) 06/24/2024 UTI (urinary tract infection), uncomplicated (ICD-10 [...] until they are finished. You can use [id number]-[id number] acetaminophen or ibuprofen if needed for pain. You should follow up with your Primary Care Physician or return to clinic if not improving in the next 3-5 days. 06/24/2024 Dysuria (ICD-10 - R30.0) Plan Of Treatment Pending Test Test Name Order Date CMP (COMPLETE METABOLIC PANEL) 4 CMP (COMPLETE METABOLIC PANEL) 3 HEMOGLOBIN A1C (GLYCO) 09/01/2023 HEMOGLOBIN A1C (GLYCO) 09/06/2022 LIPID PANEL (CHOL/TRIG/HDL/LDL) 09/01/19 24 LIPID PANEL (CHOL/TRIG/HDL/LDL) 09/07/19 23 CBC WITH DIFF 09/06/2022 CBC WITH DIFF 09/01/2023 XR Knee LT (3 views) * 11/15/2022 ECG with Interpretation 11/21/2023 T3 FREE, T4 FREE and TSH 09/02/2023 UA DIP NONAUTO WO MICRO (85925) - IN OFF ICE 06/24/2024 Insulin Level 09/01/2023 Treadmill Stress Test with Nuclear Imagi ng 11/21/2023 STOOL OCCULT BLOOD 09/06/2022 STOOL OCCULT BLOOD 09/01/2023 MAMM DIAG UNILAT RT KIRK 3D GLOBAL 05/13 MRI KNEE LT WO CON 11/15/2022 XR CHEST 2 V 02/11/2024 THYROID PANEL (T4/TSH/FREE T3) 3 THYROID PANEL (T4/TSH/FREE T3) 4 MG MAMM DIAGNOSTIC 3D ANN-MARIE CAD 02/17/2024 BI US BREAST COMPLETE LEFT 02/11/2024 Insurance Providers Payer Name Payer Address Payer Phone Subscriber Number Group Number Insured Name Patient Relationship to Insured Coverage Start Date Coverage End Date MMO [employer] [address] [place] [address] [id number] Corey Marcos Spouse - patient is the spouse of the insured Medical (General) History Medical History History ICD Code Chest pain R07.9 Diverticula of intestine K57.30 Eczema L30.9 Gastric reflux K21.9 Multinodular goiter E04.2 Low back pain M54.5 Renal cyst N28.1 Seasonal allergic rhinitis J30.2 Thyroid nodule E04.1 Pyelonephritis N12 Kidney calculi N20.0 Surgical History Surgery Date(Month/Year) Cystoscopy with stent removal Lithotripsy EGD/Colonoscopy 08/26/2018
--- OUTSIDE RECORDS SUMMARY | 2024-11-14 07:49 | XMS_ITS | Clinical Summary ---
Author Organization [facility] 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 Name Role Phone Neymar Win MD Primary Care Provider [phone] Allergies No known active allergies Medications dicyclomine (BENTYL) 20 MG tablet TAKE 1 TABLET BY MOUTH 3 TIMES A DAY BEFORE MEALS 5 9 Active levothyroxine (SYNTHROID) 50 MCG tablet TAKE 1 TABLET BY MOUTH EVERY DAY 11 9 Active [facility] ESOMEPRAZOLE MAGNESIUM 20 MG delayed release capsule TAKE 2 CAPSULES BY MOUTH EVERY DAY 0 Active diclofenac (VOLTAREN) 75 MG EC tablet TAKE 1 TABLET BY MOUTH TWICE A DAY 2 Active lisinopril (PRINIVIL;ZESTRIL ) 20 MG tablet Take 1 tablet by mouth daily Active liothyronine (CYTOMEL) 5 MCG tablet TAKE 1 TABLET BY MOUTH EVERY DAY ON EMPTY STOMACH FOR 30 DAYS 5 Active Active Problems No known active problems Immunizations Immunization Administration Dates Next Due COVID-19, MODERNA JEWELL correia, Primary or Immunocompromised, (age 12y+), IM, 100 mcg/0.5mL 08/12/2020,08/12/2020,07/17/2020,2020,07/15/2020 COVID-19, PFIZER PURPLE top, DILUTE for use, (age 12 y+), 30mcg/0.3mL 08/12/2020,07/15/2020 Influenza Virus Vaccine 02/08/2021,05/03/2020 Influenza, FLUCELVAX, (age 6 mo+), MDCK, Quadv PF, 0.5mL 02/08/2021,05/03/2020 Pneumococcal, PCV-13, PREVNA R 13, (age 6w+), IM, 0.5mL 02/08/2020 Family History Medical History Relation Name Comments Cancer Father Clotting Disorder Mother High Cholesterol Mother Thyroid Disease Mother Relation Name Status Comments Father Maternal Grandfather Maternal Grandmother Mother Alive Paternal Grandfather Paternal Grandmother Social History Tobacco Use Types Packs/Day Years Used Date Smoking Tobacco: Never Smokeless Tobacco: Never Tobacco Cessation:Counseling Given: Not Answered Alcohol Use Standard Drinks/Week Comments Yes 0 (1 standard drink = 0.6 oz pur e alcohol) Comments No Sex and Gender Information Value Date Recorded Sex Assigned at Not on file Legal Sex Female 6:45 PM EST Gender Identity Not on file Sexual Orientation Not on file Last Filed Vital Signs Vital Sign Reading Time Taken Comments Blood Pressure 142/90 07/12/2024 11:12 AM EDT Pulse - - Temperature - - Respiratory Rate - - Oxygen Saturation - - Inhaled Oxygen Concentration - - Weight 108.4 kg (239 lb) 07/12/2024 11:12 AM EDT Height 165.1 cm (5' 5 ) 07/12/2024 11:12 AM EDT Body Mass Index 39.77 07/12/2024 11:12 AM EDT Plan of Treatment Health Maintenance Due Date Last Done Comments Depression Screen 1980 HIV screen 07/09/1983 Hepatitis C screen 1986 DTaP/Tdap/Td vaccine (1 - Tdap) 07/09/1987 Hepatitis B vaccine (1 of 3 - 19+ 3-dose series) 07/09/1987 HPV (without or with Pap) 1998 Diabetes screen 07/09/2003 Lipids 2008 Colonoscopy 2013 Colorectal Cancer Screen 2013 FIT/FOBT: Average risk 2013 Fecal-DNA (Cologuard): Average risk 2013 Sigmoidoscopy/CT colonography 2013 Shingles vaccine (1 of 2) 2018 Pneumococcal 50+ years Vaccine (2 of 2 - PPSV23) 02/07/2021 02/08/2020 Breast cancer screen 03/20/2022 03/20/2020, 03/18/2019, 02/27/2018 COVID-19 Vaccine ( season) 2023 11/13/2021, 09/29/2021, 08/12/2020, Additional history exists Flu vaccine (#1) 11/26/2024 02/08/2021, , 05/03/2020, Additional history exists Cervical cancer screen 07/13/2027 Pap smear 07/13/2027 07/12/2024, 04/28, 03/14/2022, Additional history exists Pneumococcal 0-49 years Vaccine Discontinued 02/08/2020 Hepatitis A vaccine Aged Out No longe r eligible based on patient's age to complete this topic Hib vaccine Aged Out No longer eligi ble based on patient's age to complete this topic Meningococcal (ACWY) vaccine Aged Out No longer eligible based on patient's age to complete this topic Meningococcal B vaccine Aged Out No l onger eligible based on patient's age to complete this topic Polio vaccine Aged Out No longer elig ible based on patient's age to complete this topic Procedures Procedure Name Priority Date/Time Associated Diagnosis Comments 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 - Endocervical/trans formation zone component present. Descriptive Diagnosis: Negative for intraepithelial lesion or malignancy. Cytotech Screener: EY Electronically Signed Out Margot Rand CT(ASCP) ey/07/26/2024 Source of Specimen: A: Imaged ThinPrep Pap - Cervical (1 monolayer slide) HPV Reflex?........... ...........HPV if Abnormal Clinical History Postmenopausal Z01.419 Routine sampler first exam without abnormal findings LMP: 01/23/2016 Processing Lab: [address] [phone] Interpretation performed at [address] [phone] This Pap Test has been evaluated with [...] smear result. GYNECOLOGIC CYTOLOGY REPORT Patient Name: TAMRA MARCOS [facility] Rec: [id number] [facility] [employer] CONSULTING PATHOLOGISTS [facility] [address] [place] [address]. [address] [facility] [employer] CERVICAL MATERIAL 07/12/2024 025 7:46 AM EDT Berhane Yang MD PATHOLOGY/CYTOLOGY ORDERABLES Final Result [facility] [address] [id number], [facility] [phone] [facility] [employer] * MARGE Screening Bilateral (03/20/2020) Anatomical Region Laterality Modality Breast Bilateral Mammography Historical Provider IMG MAMMOGRAPHY ORDERABLE S Final Result from Last 3 Months or Most Recently Relevant to Health Maintenance Insurance [employer] Care Teams Truss Driver Helper Relationship Specialty Start Date End Date Neymar Win MD [address] [place] [address] PCP - General Family Medicine 01/16/16
[2024-11-14] MEDS: KETOROLAC TROMETHAMINE 30 MG/ML VIAL IVP (07:51)
[2024-11-14 07:59] LABS: Hematocrit 39.7 % (36.0-48.0); Hemoglobin 12.9 g/dL (12.0-16.0); Immature Granulocytes Abs Auto 0.04 10^3/uL (0.00-0.03); Immature Granulocytes Pct Auto 0.4 % (0.0-0.5); Lymphocytes Absolute Auto 1.4 10^3/uL (1.2-3.8); Mean Corpuscular HGB Conc 32.5 g/dL (29.9-35.2); Mean Corpuscular Hemoglobin 29.0 pg (26.7-34.0); Mean Corpuscular Volume 89.2 fL (81.0-99.0); Platelet Count 358 10^3/uL (150-450); Red Blood Count 4.45 10^6/uL (4.20-5.40); White Blood Count 10.7 10^3/uL (4.0-11.0)
[2024-11-14 08:01] LABS: Alanine Aminotransferase 43 U/L (14-59); Albumin Globulin Ratio 0.8; Albumin Level 3.3 g/dL (3.4-5.0); Alkaline Phosphatase 161 U/L (46-116); Anion Gap 14.5; Aspartate Amino Transferase 24 U/L (15-37); Blood Urea Nitrogen 21.0 mg/dL (7.0-18.0); Calcium 9.1 mg/dL (8.5-10.1); Carbon Dioxide 29.3 mmol/L (21.0-32.0); Chloride 106 mmol/L (98-107); Estimated GFR (African America >60 (>=60 mL/min/1.73m^2); Estimated GFR (Non-African Ame >60 (>=60 mL/min/1.73m^2); Globulin 3.9 g/dL; Glucose 109 mg/dL (74-106); Potassium 3.8 mmol/L (3.5-5.1); Sodium 146 mmol/L (136-145); Total Protein 7.2 g/dL (6.4-8.2)
[2024-11-14] MEDS: TAMSULOSIN HCL 0.4 MG CAPSULE PO (08:32)
[2024-11-14 08:39] VITALS: BP 150/84
[2024-11-14 08:48] LABS: Glucose Urine UA NEGATIVE (NEGATIVE)
[2024-11-14 09:02] LABS: Cast Seen? NONE SEEN #/LPF (NONE SEEN); Crystals Seen? None Seen #/HPF (None Seen); Urine Culture Indicated YES-FRMC
== END 2024-11-14 10:05 | disposition home or self-care (01) ==
PROVIDERS: Emergency Provider Emergency Medicine; PCP Family Medicine
DX: N13.6 Pyonephrosis (principal); Z87.442 Personal history of urinary calculi
CPT/HCPCS: 36415; 74176; 80053; 81001; 85025; 87086; 87088; 87186; 96365; 96375; 99284; J0696; J1885; J2405

== ENCOUNTER 2025-02-21 06:54 | Outpatient (OUT) | payer OTHER, SELFPAY ==
--- OUTSIDE RECORDS SUMMARY | 2025-02-21 06:58 | XMS_ITS | CCD ---
Author Organization [facility] Care Team Providers Care Cosmetology Educator Name Role Phone Sue Erwin Primary Care Provider [phone] Sue Erwin Primary Care Physician MD Jordi Chand Attending Provider [phone] MD Sue Erwin Primary Care Provider [phone] TYREEY ., DR ROGERS Consulting Unavailable HOY [...] Attending Unavailable TIMMIS, DR GABRIEL Admmessi Unavailable SHELBY GAP, DR KODY Pappas Consulting Unavailable HOY ., [...] Unavailable YAIMA ., DR ROGERS Admitting Unavailable SHELBY GAP, DR KODY Pappas Consulting Unavailable MANNIE, DR [...] Consulting Unavailable Shubham Rodrigues Unavailable MD Sue Erwin Primary Care Provider [phone] MD Shubham Rodrigues Attending Provider [phone] Sue Erwin MD Primary Care Provider [phone] ROSAURA YANG Referring Unavailable SUE ERWIN Primary Care Unavailable Vee Pittman MD Attending Provider [phone] Vee Pittman Attending Unavailable Vee Pittman Admitting Unavailable NKRACHID-NANCY WAYNE Attending Unavail able NKRACHID-AMHUI, NANCY Admitting Unavail able NKRACHID-AMHUI, NANCY Attending Unavail able Jordi CHAND Attending Unavailable NKRACHID-AMNANCY AMES Attending Unavail able NKANSMELVIN-AMANK, NANCY Referring Unavail able NKANSAH-AMANKRA, NANCY Admitting Unavail able NKANSAH-AMANKRA, NANCY Attending Unavail able NKANSAH-AMHUI, NANCY Referring Unavail able NKANSAH-AMANKRA, NANCY Admitting Unavail able Aria Srinivasan Attending Unavailable MD NANCY QUINONEZ Attending Unav ailable MD NANCY QUINONEZ Referring Unav ailable MD NANCY QUINONEZ Admitting Unav ailable Allergies Allergy ClassificationReported Allergen(s)Allergy TypeDate of OnsetReaction(s) Facility (2 sources)No Known Medication Allergies; Translations: [No Known Medication Allergies]Propensity to adverse reactions (disorder)[facility] Rep[facility] Medications Current Medications MedicationDrug Class(es)DatesSig (Normalized)Sig (Original)acetaminophen 325 mg / HYDROcodone bitartrate 5 mg oral tablet (11 sources)Opioid AgonistStart: 71-96-2389wosb 1 tablet by mouth every four hours as needed for painHYDROcodone-Acetaminophen 5-325 MG 1 tablet as needed for pain Orally up to every 4 hrs for 5 days PB: [id number] Dec, Active Start: 11-29-2021 End: 32-12-0683szvm 1 tablet by mouth every four to six hours as needed for pain Hydrocodone-Acetaminophen 5-325 mg tablet Discontinued 1 TAB PO EVERY 4-6 HOURS as needed for pain 10 November 29, 2021 December 13, 2021 2:25pmaspirin 81 mg chewable tablet (1 source)Platelet Aggregation Inhibitor, Nonsteroidal Anti-inflammatory Drug Start: 43-34-4388mxffubu 81 mg Chew Tab mg tab(s), Chewed, Daily, Refills(s) 0 Start Date: 01/27/23 Status: OrderedClaritin-D 12 Hour (6 sources)Claritin-D 12 Hour Activediclofenac sodium 75 mg delayed release oral tablet (12 sources)Nonsteroidal Anti-inflammatory DrugStart: 03-34-6718elvo 1 tablet by mouth twice dailyStart: 48-93-9271wpsb 75 mg by mouth twice dailydiclofenac sodium 75 mg, Oral, BID Start Date: 01/19/19 Status: Ordered Repeat number: 1 dicyclomine hydrochloride 20 mg oral tablet (20 sources)AnticholinergicStart: 61-73-1311jmxnhvpznjj 20 mg Tab 20 mg = 1 tab(s) Start Date: 11/21/21 Status: Ordered Repeat number: 1Start: 98-41-2717rypm 1 tablet by mouth three times daily before mealtimedicyclomine (BENTYL) 20 MG tablet TAKE 1 TABLET BY MOUTH 3 TIMES A DAY BEFORE MEALS 5 12/27/2018 Active esomeprazole 20 mg delayed release oral tablet (15 sources)Proton Pump InhibitorStart: 83-97-5296lkmp 2 tablets by mouth once daily in the morningStart: 69-69-9270dwas 40 mg by mouth once daily in the morningEsomeprazole Magnesium Active 40 MG PO Every morning December 13, 2021 12:00amStart: 98-79-7939vlrl 40 mg by mouth once dailyEsomeprazole Magnesium Active 40 MG PO Daily December 13, 2021 12:00amStart: 86-41-5030nuoj 40 mg by mouth once dailyEsomeprazole Magnesium Active 40 MG PO Daily December 13, 2021 12:00amStart: 91-21-7754zyek 2 capsules by mouth once dailyCVS ESOMEPRAZOLE MAGNESIUM 20 MG delayed release capsule TAKE 2 CAPSULES BY MOUTH EVERY DAY 02/09/2020 ActiveEsomeprazole Magnesium ActiveAllegra (5 sources)Histamine-1 Receptor AntagonistStart: 92-15-8197Ohayawo Oral Start Date: 11/21/21 Status: Ordered Repeat number: 1Start: 75-77-7652Hruhvwo Oral Start Date: 11/21/21 Status: Orderedtake 1 tablet by mouth once dailyfexofenadine (PHYLICIA ALLERGY) 180 MG tablet Take 180 mg by mouth daily 0 Activehyoscyamine sulfate 0.125 mg oral tablet (9 sources)Start: 68-00-5804pzbs 1 tablet by mouth once daily as neededStart: 48-52-4333klvv 1 tablet under the tongue four times daily as needed for pain hyoscyamine (LEVSIN/SL) 125 MCG sublingual tablet DISSOLVE 1 TABLET UNDER THE TONGUE 4 TIMES DAILY NEEDED FOR ABDOMINAL PAIN 0 02/04/2020 Active Lactobacillus Combination No.4 (Probiotic) 3 billion cell Capsule (2 sources)Start: 53-48-8189puxe 3 capsules by mouth once daily at bedtimeStart: 86-07-0483luzr 3 capsules by mouth once daily at bedtimeLactobacillus Combination No.4 (Probiotic) 3 billion cell Capsule Active 1 CELL PO Daily at bedtimeAugust 2022 12:00amlevothyroxine sodium 0.05 mg oral tablet (20 sources)l-ThyroxineStart: 40-01-4065yjba 1 tablet by mouth once daily in the morningStart: 18-93-9418wrgz 1 tablet by mouth once dailylevothyroxine 50 mcg (0.05 mg) Tab 50 microgram = 1 tab(s), Oral, Daily Start Date: 01/19/19 Status: Ordered Repeat number: 1liothyronine sodium 0.005 mg oral tablet (3 sources)l-TriiodothyronineStart: 44-31-2980fxkm 1 tablet by mouth once daily liothyronine (CYTOMEL) 5 MCG tablet TAKE 1 TABLET BY MOUTH EVERY DAY ON EMPTY STOMACH FOR 30 DAYS 05/20/2024 ActiveStart: 00-02-3365kpozfhrddsjg 5 mcg Tab Refills(s) 0 Start Date: 02/02/24 Status: Ordered Repeat number: 1lisinopril 20 mg oral tablet (4 sources)Angiotensin Converting Enzyme InhibitorStart: 39-69-1309qktmowfqlr 20 mg Tab Refills(s) 0 Start Date: 02/02/24 Status: Ordered Repeat number: 1Start: 10-71-8836zuwa 1 tablet by mouth at bedtimeLoratadine / Pseudoephedrine (3 sources)alpha-Adrenergic AgonistStart: 64-76-7003zweg 1 tablet by mouth every twelve hoursClaritin-D 1 tab(s), Oral, q12hr Start Date: 01/19/19 Status: Ordered Loratadine-Pseudoephedrine (CLARITIN-D 24 HOUR PO) Indications: Routine gynecological examination Take by mouth. 0 Activepantoprazole 40 mg delayed release oral tablet (10 sources)Proton Pump InhibitorStart: 56-37-0426dtvz 1 tablet by mouth once dailyProtonix 40 mg Tab-DR 40 mg = 1 tab(s), Oral, Daily Start Date: 01/19/19 Status: Orderedtamsulosin hydrochloride 0.4 mg oral capsule (1 source)alpha-Adrenergic BlockerStart: 11-15-2024 End: 32-82-6906nald 1 capsule by mouth twice dailyFlomax 0.4 mg Cap 0.4 mg = 1 cap(s), Oral, BID, X 30 day(s), # 60 cap(s), Refills(s) 1, Pharmacy: [id number], 164, cm, 02/02/24 8:05:00 EDT, Height/Length Dosing, 106.5, kg, 02/02/24 8:05:00 EDT, Weight Dosing Start Date: 11/15/24 Stop Date: 01/14/25 Status: Ordered Quantity: 60.0 Unit: cap(s) Repeat number: 2 Completed/Discontinued Medications MedicationDrug Class(es)DatesSig (Normalized)Sig (Original)ciprofloxacin 500 mg oral tablet (8 sources)Quinolone AntimicrobialStart: 12-21-2021 End: 24-82-8160fcrd 1 tablet by mouth every two hoursCiprofloxacin Hcl (Cipro) 500 mg tablet Discontinued 500 MG PO Q12H December 21, 2021 12:00am December 25, 2022 8:39am administer dose at least 2 hrs before/6 hrs after dairy products, calcium, zinc, and/or iron-containing productsStart: 89-25-7564vtkn 1 tablet by mouth every two hoursCiprofloxacin Hcl (Cipro) 500 mg tablet Active 500 MG PO Q12H December 21, 2021 12:00am administer dose at least 2 hrs before/6 hrs after dairy products, calcium, zinc, and/or iron-containing produ ctsStart: 99-54-7948zhyq 1 tablet by mouth every two hoursCiprofloxacin Hcl (Cipro) 500 mg tablet Active 500 MG PO Q12H December 21, 2021 12:00am administer dose at least 2 hrs before/6 hrs after dairy products, calcium, zinc, and/or iron-containing productsStart: 88-35-6322mcmc 1 tablet by mouth every two hoursCiprofloxacin Hcl (Cipro) 500 mg tablet Active 500 MG PO Q12H December 21, 2021 12:00am administer dose at least 2 hrs before/6 hrs after dairy products, calcium, zinc, and/or iron-containing productsStart: 11-21-2021 ciprofloxacin 500 mg Tab 500 mg = 1 tab(s) Start Date: 11/21/21 Status: Ordered oxybutynin chloride 5 mg oral tablet (15 sources)Cholinergic Muscarinic AntagonistStart: 11-29-2021 End: 84-24-1110lrnq 1 tablet by mouth twice dailyOxybutynin Chloride 5 mg tablet Discontinued 5 MG PO Twice daily November 29, 2021 12:00am December 25, 2022 8:41amStart: 18-79-5823Ffpmynh 5 mg Tab 5 mg = 1 tab(s) Start Date: 11/21/21 Status: Orderedsucralfate 1000 mg oral tablet (16 sources)Aluminum ComplexStart: 11-29-2021 End: 86-85-1640rieq 1 tablet by mouth twice dailySucralfate 1 gram tablet Discontinued 1 GM PO Twice daily November 29, 2021 12:00am December 25, 2022 8:41amStart: 32-04-0299uabdogmqli tab 1 gm = 1 tab(s) Start Date: 11/21/21 Status: OrderedStart: 86-92-2615dnbkzalsre tab 1 gm = 1 tab(s) Start Date: 11/21/21 Status: Orderedtake 10 mL by mouth twice dailySucralfate 1 GM/10ML 10 mL on an empty stomach Orally Twice a day Activetake 1 tablet by mouth twice daily sucralfate (CARAFATE) 1 GM tablet Take 1 g by mouth 2 times daily 0 Active Problems Active Problems Problem ClassificationProblemDateDocumented DateEpisodic/ChronicAbdominal pain (15 sources)Unspecified abdominal pain; Translations: [Right upper quadrant pain]Onset: 82-19-2930DpnkrwnoAcccbyfr of urinary tract (20 sources)Ureteric stone; Translations: [Calculus of ureter]Onset: 11-16-2021 EpisodicComment on above:Problem List clean-up per request of Phys. EHR Cmte Diseases of white blood cells (1 source)Elevated white blood cell count, unspecified; Translations: [ELEVATED WHITE BLOOD CELL COUNT UNS]Onset: 98-35-1147JyohxfvSscpiihdw hypertension (1 source)Essential (primary) hypertension; Translations: [ESSENTIAL PRIMARY HYPERTENSION]Onset: 09-79-6246YrseffjWvbaugwft and duodenitis (6 sources)Bile-induced gastritis; Translations: [Other gastritis without bleeding]EpisodicJoint disorders and dislocations; trauma-related (5 sources)Unspecified internal derangement of right knee; Translations: [Chondromalacia patellae, right knee]Onset: 29-84-8503UzjxkgtPkgaa disorders and dislocations; trauma-related (8 sources)Derangement of left knee; Translations: [Unspecified internal derangement of left knee]ChronicJoint disorders and dislocations; trauma-related (4 sources)Other tear of medial meniscus, current injury, right knee, initial encounter; Translations: [Other tear of medial meniscus, current injury, right knee, subsequent encounter]Onset: 64-44-0506BuzhfbpbWreoy disorders and dislocations; trauma-related (3 sources)Other tear of medial meniscus, current injury, left knee, initial encounterEpisodicLymphadenitis (4 sources)Cervical qsjutllczxrwacv05-88-5731XewfbcfpUywiezlntfhmlo (20 sources)Unilateral primary osteoarthritis, right knee; Translations: [Osteoarthritis of right knee joint]Onset: 48-11-7629EggyznvNaknn ear and sense organ disorders (4 sources)Fhrdbff99-88-2798YzxnutgjHhvig female genital disorders (1 source)Vaginal discharge; Translations: [Other specified noninflammatory disorders of vagina]EpisodicOther gastrointestinal disorders (6 sources)Irritable bowel syndrome; Translations: [Irritable bowel syndrome without diarrhea]ChronicOther gastrointestinal disorders (6 sources)Abdominal bloating; Translations: [Abdominal distension (gaseous)] EpisodicOther non-traumatic joint disorders (7 sources)Pain in right knee; Translations: [PAIN IN RIGHT KNEE]Onset: 16-23-6334NwbhkccxUdaiz non-traumatic joint disorders (2 sources)Pain in left kneeEpisodicOther upper respiratory disease (4 sources)Congestion of nasal verps89-18-5121CeshqynvKkjtpjzd codes; unclassified (3 sources)Other specified postprocedural statesEpisodicThyroid disorders (9 sources)Thyroid nodule; Translations: [Nontoxic single thyroid nodule]Onset: 678159-99-0366VycehyrGjtrxwkyfmgt (1 source)Patient encounter status; Translations: [Women's annual routine gynecological examination]Unclassified (1 source)CONTACT W/AND (SUSP) EXPOS COVID-19; Translations: [CONTACT W/AND (SUSP) EXPOS COVID-19]Onset: 11-16-2021 Past or Other Problems Problem ClassificationProblemDateDocumented DateEpisodic/ChronicBacterial infection; unspecified site (1 source)Unspecified Escherichia coli [E. coli] as the cause of diseases classified elsewhere; Translations:[UNS E COLI CAUSE DX CLASS ELSEWHERE]Onset: 27-81-2192RtpuktpwPfspo aftercare (1 source)Other nursing home (current) drug therapy; Translations: [OTH CLINICAL QUALITY RN CURRENT DRUG THERAPY]Onset: 07-09-9305FxokmkjyKgyup screening for suspected conditions (not mental disorders or infectious disease) (4 sources)Encounter for screening mammogram for malignant neoplasm of breast; Translations: [ENC SCR MAMMO MALIG NEOPLASM BREAST]Onset: 31-76-5554Duppadth Residual codes; unclassified (1 source)Family history of malignant neoplasm of other organs or systems; Translations: [FAM HX MALIG NEOPLASM OTH ORGN/SYS]Onset: 18-52-8805Tqtdujar Sprains and strains (1 source)Sprain of medial collateral ligament of right knee, initial encounter; Translations: [SPRAIN MCL RIGHT KNEE INITIAL ENC]Onset: 67-72-3624Svkoglih Urinary tract infections (1 source)Pyonephrosis; Translations: [PYONEPHROSIS]Onset: 30-43-5970Tvevkncr Results Test NameValueInterpretationReference RangeFacilityProceduralon 01-13-2025 ProceduralProcedural Patient: KAROL PLASCENCIA Age: 54 years Sex: Female : 1970 Associated Diagnoses: None Author: Corey Rome MD Preoperative Information Anesthesia Preop Info: Time patient last ate or drank 01/04/2025 00:00:00. Anesthesia history: Patient history: None. Family history+: None. Informed consent: Signed by patient. Including risks, benefits, and alternatives related to the: Anesthetic plan. Re-evaluation prior to induction: Corey Rome MD. Review of Systems Eye Ear/Nose/Mouth/Throat Respiratory: No shortness of breath, No cough. Cardiovascular: Negative, No chest pain. Gastrointestinal: No heartburn. Musculoskeletal Neurologic Health Status Allergies: Allergic Reactions (Selected) No Known Medication Allergies, Allergies (1) Active Severity Reaction No Known Medication Allergies None Documented Current medications: (Selected) Inpatient Medications Ordered Lactated Ringers IV Inga 1000 mL 1,000 mL: 1,000 mL, IV, 150 mL/hr, Routine, Start date 01/04/25 9:45:00 EDT, 6.7 hour(s), Total volume (mL): 1,000, 106.8 kg, 2.22, m2 cefazolin additive + Sodium Chloride 0.9% intravenous solution 50 mL: 2 gm = 1 EA, Powder-Inj, IV Piggyback, Once, Stop date 01/04/25 10:00:00 EDT, Routine, Start date 01/04/25 10:00:00 EDT, 100 mL/hr, Infuse over 30 minute(s), HOLD if patient has history of anaphylactic allergic reaction to Penicillin. Prescriptions Prescribed Flomax 0.4 mg Cap: 0.4 mg = 1 cap(s), Oral, BID, X 30 day(s), # 60 cap(s), Refills(s) 1, Pharmacy: [facility]/pharmacy #[id number], 164, cm, 02/02/24 8:05:00 EDT, Height/Length Dosing, 106.5, kg, 02/02/24 8:05:00EDT, Weight Dosing Documented Medications Documented Phylicia: 15 mg, Oral, BID, PRN Allergy symptoms, Allergy symptoms Nexium: 2.5 mg, Oral, Daily, Refills(s) 0, Control of stomach acid Osteo Bi-Flex: See Instructions, Refill(s) 0, Prophylaxis Probiotic Formula (Bacillus Coagulans): Refill(s) 0 Turmeric: 250 mg, Oral, Daily, Refill(s) 0, Prophylaxis diclofenac sodium: 75 mg, Oral, BID, PRN as needed for pain dicyclomine 20 mg Tab: 20 mg = 1 tab(s), Oral, BID levothyroxine 50 mcg (0.05 mg) Tab: 50 microgram = 1 tab(s), Oral, Daily, Thyroid liothyronine 5 mcg Tab: 5 mcg = 1 tab(s), Oral, Daily, Refills(s) 0, Thyroid lisinopril 20 mg Tab: 20 mg = 1 tab(s), Oral, Daily, Refills(s) 0, High blood pressure, Home Medications (11) Active Phylicia 15 mg, PRN, Oral, BID diclofenac sodium 75 mg, PRN, Oral, BID dicyclomine 20 mg Tab 20 mg = 1 tab(s), Oral, BID Flomax 0.4 mg Cap 0.4 mg = 1 cap(s), Oral, BID levothyroxine 50 mcg (0.05 mg) Tab 50 microgram = 1 tab(s), Oral, Daily liothyronine 5 mcg Tab 5 mcg = 1 tab(s), Oral, Daily lisinopril 20 mg Tab 20 mg = 1 tab(s), Oral, Daily Nexium 2.5 mg, Oral, Daily Osteo Bi-Flex See Instructions Probiotic Formula (Bacillus Coagulans) Turmeric 250 mg, Oral, Daily , Medications (2) Active Scheduled: (1) ceFAZolin + Sodium Chloride 0.9% Minibag 50 mL 2 gm 1 EA, IV Piggyback, Once Continuous: (1) Lactated Ringers 1,000 mL 1,000 mL, IV, 150 mL/hr PRN: (0) Problem list: All Problems Cervical adenopathy / SNOMED CT 006049 / Confirmed History of kidney stones / SNOMED CT 0185482465 / Confirmed Kidney stone / SNOMED CT 853672844 / Confirmed Morbid obesity with BMI of 40.0-44.9, adult / IMO [id number] / Possible Problem added automatically by Discern Expert based on clinical documentation Right ear pain / SNOMED CT 25848819 / Confirmed Sinus congestion / SNOMED CT 155575237 / Confirmed Thyroid nodule / SNOMED CT 085635710 / Confirmed Ureteral stone / SNOMED CT 40208468 / Confirmed, Active Problems (8) Cervical adenopathy History of kidney stones Kidney stone Morbid obesity with BMI of 40.0-44.9, adult Right ear pain Sinus congestion Thyroid nodule Ureteral stone Histories Past Medical History: No active or resolved past medical history items have been selected or recorded. Family History: Hypertension Mother Primary malignant neoplasm of bone Father Thyroid goiter Mother Procedure history: Cystoscopy, right ureteroscopy, stone basket extraction, stent placement ([id number]) on 12/07/2024 at 54 Years. ESWL - Extracorporeal shockwave lithotripsy for renal calculus ([id number]) on 12/21/2021 at 51 Years. Cystoscopic insertion of ureteric stent ([id number]) on 11/29/2021 at 51 Years. Cystoscope/Lt. RG/Lt. double J stent ([id number]) on 11/13/2021 at 51 Years. Colonoscopy ([id number]) on 08/26/2018 at 48 Years. Diagnostic endoscopy (188303842). D&C - Dilatation and curettage (0015384660). Biopsy of breast (221501688). Social History Social & Psychosocial Habits Alcohol 12/07/2024 Risk Assessment: Denies Alcohol Use 12/07/2024 Use: Current Frequency: 1-2 times per month Substance Abuse 12/07/2024 Risk Assessment: Denies Substance Abuse Tobacco 12/07/2024 Tobacco Use: Never (less than 100 (more content not included)... [facility] HospitalComment on above:Result Comment: wrong folder Main OR Intraoperative Recordon 20-59-9725Ofjx OR Intraoperative RecordMain OR Intraoperative Record IntraOp Document Type FT Summary Primary Physician: NANCY QUINONEZ MD Finalized Date/Time: 01/05/25 10:44:51 Pt. Name: PRITIKAROL/Sex: 1970 Female Med Rec #: [id number] Physician: NANCY QUINONEZ MD Financial #: [id number] Pt. Type: A Room/Bed: [place] [address] Admit/Disch: 01/04/25 09:33:17 - 01/04/25 14:00:04 Institution: Case Times FT Entry 1 Patient Times In Room 01/04/25 11:56:00 Out Room 01/04/25 12:27:00 Procedure Times Start 01/04/25 12:03:00 Stop 01/04/25 12:25:00 Anesthesia Times Start 01/04/25 11:56:00 Stop 01/04/25 12:27:00 Last Modified By: Sherine Hanks RN 01/04/25 12:28:11 Case Attendance FT Entry 1 Entry 2 Entry 3 Case Attendee Yohana Ochoa CRNA, MD, Demario TURNER, Sherine RCUZ Role Performed MOTORBOAT MECHANIC INBOARD Surgeon - Primary Slip Tender - Primary Time In 01/04/25 11:56:00 01/04/25 12:02:00 01/04/25 11:56:00 Time Out 01/04/25 12:27:00 01/04/25 12:27:00 01/04/25 12:27:00 Procedure EXTRACORPOREAL SHOCK EXTRACORPOREAL SHOCK EXTRACORPOREAL SHOCK WAVE LITHOTRIPSY(Left) WAVE LITHOTRIPSY(Left) WAVE LITHOTRIPSY(Left) Comments DR ROME SUPERVISING Last Modified By: Demario TURNER, Sherine Hanks RN, Sherine Hanks RN, Sherine Hager 01/04/25 12:28:12 01/04/25 12:28:12 01/04/25 12:28:12 Entry 4 Entry 5 Case Attendee Nikkie BARRAGAN, Lala Romero CST, Lindsay Ahn Role Performed Scrub - Primary Scrub - Primary Time In 01/04/25 11:56:00 01/04/25 11:56:00 Time Out 01/04/25 12:27:00 01/04/25 12:27:00 Procedure EXTRACORPOREAL SHOCK EXTRACORPOREAL SHOCK WAVE LITHOTRIPSY(Left) WAVE LITHOTRIPSY(Left) Comments LUNCH RELIEF Last Modified By: Sherine Hanks RN, CST, Lindsay Ahn 01/04/25 12:28:12 01/05/25 10:44:01 General Comments: LEIGHANN CARPENTER, ESWL REP, ALSO IN ATTENDANCE. 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 Protocols FT Pre-Care Text: Implements protective measures prior to operative or invasive procedure, confirms identity before the operative or invasive procedure, verifies operative procedure, surgical site, and laterality Entry 1 Procedure(s) EXTRACORPOREAL SHOCK Patient Identity Birthday, ID Band WAVE LITHOTRIPSY(Left) Verified (select at Check, Patient least 2): Participation Consents / H and P Anesthesia Consent, Operative Site Present Verified H&P, Surgery/Procedure Marking Verified Consent Surgical Site Yes Laterality Verified Yes Verified Procedure Verified Yes Correct Patient Yes Position Verified Availability Equipment, Medication, Prep Dry n/a Verified (If X-ray Applicable) PreOp Antibiotic Yes Time Out Yohana Ochoa CRNA, Given Participants NANCY QUINONEZ MD, Demario TURNER, Heather Friend CST, Lindsay Ahn Time Out Complete 01/04/25 12:02:00 Outcomes Met? Yes Last Modified By: Sherine Hanks RN 01/04/25 12:02:52 Post-Care Text: The patient is free from signs and symptoms of injury caused by extraneous objects Allergy Information FT Pre-Care Text: Verifies allergies Entry 1 Allergies Reviewed? Yes Allergies Reviewed Self/Patient With Outcomes Met? Yes Last Modified By: Sherine Hanks RN 01/04/25 09:41:22 Post-Care Text: The patient received appropriate medication(s) safely administered during the perioperative period Surgical Procedures FT Entry 1 Procedure Description Procedure EXTRACORPOREAL SHOCK Modifiers Left WAVE LITHOTRIPSY Surgeon Description LEFT ESWL Primary Procedure Yes Primary Surgeon NANCY QUINONEZ MD Start 01/04/25 12:03:00 Stop 01/04/25 12:25:00 Anesthesia Type General Surgical Service Anesthesia Wound Class 1 - Clean Last Modified By: Sherine Hanks RN 01/04/25 12:31:12 General Case Data FT Pre-Care Text: Classifies surgical wound, implements aseptic technique, initiates traffic control Entry 1 Case Information OR OR 2 FT Case Level Level 2 Wound Class 1 - Clean Specialty Anesthesia ASA Class 3 Preop Diagnosis LEFT KIDNEY STONE Postop Same As Preop Yes Postop Diagnosis LEFT KIDNEY STONE Outcomes Met? Yes Last Modified By: Sherine Hanks RN 01/04/25 12:20:44 Post-Care Text: The patient is free from signs and symptoms of infection Skin Assessment (Pre Procedure) FT Pre-Care Text: Implements protective measures to prevent skin/ tissue injury due to thermal or mechanical sources Evaluates for signs and symptoms of physical injury to skin and tissue Entry 1 Skin Integrity Intact, Disautel, Warm, & Skin Abnormality No Dry Outcomes Met? Yes Last Modified By: Sherine Hanks RN 01/04/25 12:01:42 Post-Care Text: The patient is free from signs and symptoms of injury caused by extraneous objects Patient Positioning FT Pre-Care Text: Identifies physical alterations that require additional precautions for procedure-specific positioning, verifies presence of prosthetics or corrective devices, positions the patient, evaluates the patient for signs and symptoms of injury as a result o (more content not included)...[facility] HospitalDischarge Instructionson 84-53-7117Lvfnktolo Instructions Discharge Instructions KAROL PLASCENCIA :1970 Visit Date:01/04/2025 Inpatient Discharge Instructions Your Care Team Admitting Physician - NANCY QUINONEZ MD Referring Physician - NANCY QUINONEZ MD Reason for Your Visit LEFT KINDEY STONE Tests Performed XR Abdomen 1 View -- Results Pending -- Please visit your patient portal for your results or contact your primary care physician. Procedure History Cystoscopy (12/07/2024), ESWL - Extracorporeal shockwave lithotripsy for renal calculus (12/21/2021), Cystoscopic insertion of ureteric stent (11/29/2021), Cystoscope (11/13/2021), Colonoscopy (08/26/2018), Biopsy of breast, D&C - Dilatation and curettage, Diagnostic endoscopy. Discharge Vitals Temperature (Temporal Artery) 36.5 ???C Heart Rate (Monitored) 76 Respiratory Rate 14 Blood Pressure 127/66 Height 166 cm Weight 106.8 kg What to do next Instructions From Your Doctor Event Name Event Result Discharge Instructions Freetext Hydrate vigorously with at least 2L/day. Flomax for one week. Tylenol for pain. Roxicodone for breakthrough. Blood in urine, urgency expected after procedure. F/U in 6 weeks w/ ART HISTORIAN or PA w/ ANNAMARIE, MARTIN prior. Bruising in area is expected. Discharge Activity Resume normal activities in 24 hours, Arrange for a responsible adult supervision for 24 hours, Expect mild pain, Expect minimal amount of drainage and/or bleeding, Activity as tolerated Discharge Restrictions No driving for 24 hrs, Do not make important decisions for 24 hours, Do not drink alcoholic beverages for 24 hours Discharge Diet(s) Regular Call Your Doctor For Temperature above 101.5 degrees, Redness, swelling, or pus at operative site, Severe pain at the operative site, Persistent vomiting Discharge Instructions Discharge Instructions New Follow Up Appointments after Discharge Follow Up with NANCY QUINONEZ When: Comments: 6 weeks w/ PA or ART HISTORIAN. MARTIN, KUB Prior Medications What How Much When Instructions Next Dose New oxycodone (Roxicodone 5 mg Tab) 1 Tablets By Mouth Every 6 hours as needed for for pain Duration: 3 Days Pickup at [facility]/pharmacy #[id number] Unchanged bacillus coagulans-inulin (Probiotic Formula (Bacillus Coagulans)) Unchanged chondroitin-glucosamine (Osteo Bi-Flex) See instructions Unchanged diclofenac (diclofenac sodium) 75 Milligram By Mouth 2 times a day as needed for as needed for pain Unchanged dicyclomine (dicyclomine 20 mg Tab) 1 Tablets By Mouth 2 times a day Unchanged esomeprazole (Nexium) 2.5 Milligram By Mouth Every day Unchanged fexofenadine (Phylicia) 15 Milligram By Mouth 2 times a day as needed for Allergy symptoms Unchanged levothyroxine (levothyroxine 50 mcg (0.05 mg) Tab) 1 Tablets By Mouth Every day Unchanged liothyronine (liothyronine 5 mcg Tab) 1 Tablets By Mouth Every day Unchanged lisinopril (lisinopril 20 mg Tab) 1 Tablets By Mouth Every day Unchanged tamsulosin (Flomax 0.4 mg Cap) 1 Capsules By Mouth 2 times a day Duration: 30 Days Unchanged Turmeric 250 Milligram By Mouth Every day Pharmacy Information [facility]/pharmacy #[id number]: [address], [place] [phone] Allergies No Known Medication Allergies Problems Ongoing - Any problem that you are currently receiving treatment for. Cervical adenopathy History of kidney stones Kidney stone Morbid obesity with BMI of 40.0-44.9, adult Right ear pain Sinus congestion Thyroid nodule Ureteral stone Education Materials Common Emergency Awareness Tips IS IT A STROKE? Act FAST and Check for these signs: FACE Does the face look uneven? ARM Does one arm drift down? SPEECH Does their speech sound strange? TIME Call at any sign of stroke Heart Attack Signs Chest discomfort: Most heart attacks involve discomfort in the center of the chest and lasts more than a few minutes, or goes away and comes back. It can feel like uncomfortable pressure, squeezing, fullness or pain. Discomfort in upper body: Symptoms can include pain or discomfort in one or both arms, back, neck, jaw or stomach. Shortness of breath: With or without discomfort. Other signs: Breaking out in a cold sweat, nausea, or lightheaded. Remember, MINUTES DO MATTER. If you experience any of these heart attack warning signs, call to get immediate medical attention! Patient Survey You may receive a survey in the mail asking you about your stay with us. We want to hear from you, please share your experience with us by completing your survey. Thank you for choosing [facility]. Joi Award Nomination The JOI (Diseases Attacking the Immune SYstem) Award is an international recognition program thathonors and celebrates the skillful, compassionate care nurses provide every day. Anyone who experiences or observes amazing care being provided by a nurse is encouraged to submit a nomina (more content not included)...[facility] on above:Result Comment: Electronically Signed By: My Rowan RN\.br\Date and Time Signed: 01/04/25 12:54 EDTInpatient Patient Summaryon [id number] Patient Summary Inpatient Patient Summary [address] [address] [facility] Clinical Discharge Instructions PERSON INFORMATION Name: KAROL PLASCENCIA [facility]#:[id number] PHYSICIANS Admitting Physician: NANCY QUINONEZ MD Attending Physician: NANCY QUINONEZ MD PCP: Sue Erwin MD Discharge Diagnosis: Comment: PATIENT EDUCATION INFORMATION Instructions: Medication Leaflets: Follow up: With: Address: When: NANCY QUINONEZ Comments: 6 weeks w/ PA or ART HISTORIAN. MARTIN, ANNAMARIE Prior MEDICATION LIST New Medications [id number], [address], [place] [phone], [phone] oxycodone (Roxicodone 5 mg Tab) 1 Tablets By Mouth every 6 hours as needed for pain for 3 Days. Refills: 0. Medications to Continue with No Changes Other Medications bacillus coagulans-inulin (Probiotic Formula (Bacillus Coagulans)) chondroitin-glucosamine (Osteo Bi-Flex) diclofenac (diclofenac sodium) 75 Milligram By Mouth 2 times a day as needed as needed for pain. dicyclomine (dicyclomine 20 mg Tab) 1 Tablets By Mouth 2 times a day. esomeprazole (Nexium) 2.5 Milligram By Mouth every day. fexofenadine (Phylicia) 15 Milligram By Mouth 2 times a day as needed Allergy symptoms. levothyroxine (levothyroxine 50 mcg (0.05 mg) Tab) 1 Tablets By Mouth every day. liothyronine (liothyronine 5 mcg Tab) 1 Tablets By Mouth every day. lisinopril (lisinopril 20 mg Tab) 1 Tablets By Mouth every day. tamsulosin (Flomax 0.4 mg Cap) 1 Capsules By Mouth 2 times a day for 30 Days. Refills: 1. Turmeric 250 Milligram By Mouth every day. Comment:[facility] OR PACU I Recordon [id number] OR PACU I RecordMain OR PACU I Record PACU Phase I Document Type FT Summary Primary Physician: NANCY QUINONEZ MD Finalized Date/Time: 01/04/25 12:59:16 Pt. Name: KAROL PLASCENCIA Vincent Mayen/Sex: 1970 Female Med Rec #: [id number] Physician: NANCY QUINONEZ MD Financial #: [id number] Pt. Type: A Room/Bed: [place] [address] Admit/Disch: 01/04/25 09:33:17 - Institution: Case Times PACU I FT Pre-Care Text: Identifies barriers to communication and implements measures to provide psychological support Develops individualized plan of care, and ensures continuity of care Maintains patient's dignity and privacy, and maintains patient confidentiality Identifies and reports philosophical, cultural, and spiritual beliefs and values Identifies individual values and wishes concerning care Implements aseptic technique, and administers prescribed antibiotic therapy and immunizing agents as ordered Evaluates postoperative tissue perfusion Implements thermoregulation measures, and monitors body temperature Evaluates postoperative respiratory status Evaluates postoperative cardiac status Evaluates postoperative neurological status Assesses pain control, collaborated in initiating patient-controlled analgesia and implements alternative methods of pain control Verifies allergies, administers prescribed medications and solutions, evaluates response to medications Entry 1 In PACU I 01/04/25 12:29:00 Discharge from PACU 01/04/25 12:59:00 I Outcomes Met? Yes Last Modified By: Fatimah Berry RN 01/04/25 12:58:56 Post-Care Text: The patient demonstrates knowledge of the expected response to the operative or invasive procedure The patient's care is consistent with the individualized perioperative plan of care The patient's rightto privacy is maintained The patient's value system, lifestyle, ethnicity, and culture are considered, respected, and incorporated into the perioperative plan of care The patient participates in decisions affecting his or her perioperative plan of care The patient is free from signs and symptoms of infection The patient has wound/tissue perfusion consistent with or improved from baseline levels established preoperatively The patient is at or returning to normothermia at the conclusion of the immediate postoperative period The patient's respiratory function is consistent with or improved from baseline levels established preoperativelyThe patient's cardiovascular status is consistent with or improved from baseline levels established preoperatively The patient's cardiovascular status is consistent with or improved from baseline levels established preoperatively The patient demonstrates and/or reports adequate pain control throughout the perioperative period The patient received appropriate medication(s), safely administered during the perioperativeperiod Acuity Level PACU I FT Entry 1 Start Time 01/04/25 12:29:00 Stop Time 01/04/25 12:59:00 Acuity Level Acuity Level I Last Modified By: Fatimah Berry RN 01/04/25 12:59:11 Finalized By: Fatimah Berry RN Document Signatures Signed By: Fatiamh Berry RN 01/04/25 12:59NormalPrem[facility] CenterMain OR PACU II Recordon [id number] OR PACU II RecordMain OR PACU II Record PACU Phase II Document Type FT Summary Primary Physician: NANCY QUINONEZ MD Finalized Date/Time: 01/04/25 14:03:15 Pt. Name: PRITIKAROL/Sex: 1970 Female Med Rec #: [id number] Physician: NANCY QUINONEZ MD Financial #: [id number] Pt. Type: A Room/Bed: [place] [address] Admit/Disch: 01/04/25 09:33:17 - 01/04/25 14:00:04 Institution: Case Times PACU II FT Pre-Care Text: Identifies barriers to communication and implements measures to provide psychological support and determines knowledge level Develops individualized plan of care, and ensures continuity of care Maintains patient's dignity and privacy, and maintains patient confidentiality Identifies and reports philosophical, cultural, and spiritual beliefs and values Identifies individual values and wishes concerning care administers prescribed antibiotic therapy and immunizing agents as ordered, Evaluates postoperative tissue perfusion Implements thermoregulation measures, and monitors body temperature Evaluates postoperative respiratory statusEvaluates postoperative cardiac status Evaluates postoperative neurological status Assesses pain control, collaborated in initiating patient-controlled analgesia and implements alternative methods of pain control Verifies allergies, administers prescribed medications and solutions, evaluates response to medications Entry 1 In PACU II 01/04/25 13:00:00 Discharge from PACU 01/04/25 14:00:00 II Outcomes Met? Yes Last Modified By: Cyndee Cuellar 01/04/25 14:03:14 Post-Care Text: The patient demonstrates knowledge of the expected response to the operative or invasive procedure The patient's care is consistent with the individualized perioperative plan of care The patient's rightto privacy is maintained The patient's value system, lifestyle, ethnicity, and culture are considered, respected, and incorporated into the perioperative plan of care The patient participates in decisions affecting his or her perioperative plan of care. The patient is free from signs and symptoms of infection The patient has wound/tissue perfusion consistent with or improved from baseline levels established preoperatively The patient is at or returning to normothermia at the conclusion of the immediate postoperative period The patient's respiratory function is consistent with or improved from baseline levels established preoperativelyThe patient's cardiovascular status is consistent with or improved from baseline levels established preoperatively The patient's neurological status is consistent with or improved from baseline levels established preoperatively The patient demonstrates and/or reports adequate pain control throughout the perioperative period The patient received appropriate medication(s), safely administered during the perioperativeperiod Finalized By: Cyndee Cuellar Document Signatures Signed By: Cyndee Cuellar 01/04/25 14:03[facility] OR Preoperative Recordon [id number] OR Preoperative RecordMain OR Preoperative Record PreOp Document Type FT Summary Primary Physician: NANCY QUINONEZ MD Finalized Date/Time: 01/04/25 12:04:01 Pt. Name: PRITIKAROL/Sex: 1970 Female Med Rec #: [id number] Physician: NANCY QUINONEZ MD Financial #: [id number] Pt. Type: A Room/Bed: [place] [address] Admit/Disch: 01/04/25 09:33:17 - Institution: Case Times PreOp FT Pre-Care Text: Verifies consent for planned procedure, identifies individual values and wishes concerning care, includes family members in perioperative teaching Entry 1 Patient Times. In Pre Surgery 01/04/25 09:35:00 Out Pre Surgery 01/04/25 11:54:00 Outcomes Met? Yes Last Modified By: Sherine Hanks RN 01/04/25 12:04:00 Post-Care Text: The patient participates in decisions affecting his or her perioperative plan of care Finalized By: Sherine Hanks RN Document Signatures Signed By: Sherine Hanks RN 01/04/25 12:04[facility] HospitalOperative Report on [id number] ReportOperative Report Patient: KAROL PLASCENCIA Age: 54 years Sex: Female : 1970 Associated Diagnoses: None Author: NANCY QUINONEZ MD Procedure SURGEON: Nancy Quinonez MD PREOPERATIVE DIAGNOSIS: Left Intrarenal stone POSTOPERATIVE DIAGNOSIS: Same PROCEDURE: Left extracorporal shockwave lithotripsy FINDINGS: Left approximately 5 mm INTRARENAL stone fractured into submillimeter fragments with no radiographic evidence of stone at conclusion of procedure ANESTHESIA: General INTRAVENOUS FLUIDS: None ESTIMATED BLOOD LOSS: 0cc TUBES AND DRAINS: None SPECIMENS: None COMPLICATIONS: None INDICATIONS FOR PROCEDURE: Patient is a 54-year-old female e who presented with left-sided flank pain. CT abdomen pelvis demonstrated a left intrarenal stone. We did discuss that this is unlikely to be source of her pain but patient was interested in treatment of stone. He presents for the aforementioned procedure. Risks, benefits, alternatives were discussed in extensive detail with her and patient communicated full understanding and proceeded to the OR. OPERATIVE DETAIL: Patient was brought to the operative suite placed on continuous pulse oximetry and cardiac monitoring anesthesia. IV antibiotics including 2 g of Ancef was administered. She was then placed in the supine position. Timeout was performed confirming patient, procedure, side, all in room agreed. The stone was then identified using x-ray imaging and the patient was centered over the area of the stone on the ultrasound probe. At this point, anesthesia was administered. SCDs were on and functioning and a time-out was performed. Starting at a power of 2.5 and continuing only at the power of 2.5, the stone was shocked at 120 shocks per minute for a total of 2000 shocks. At the end of the procedure, there was excellent fracture of stone with no radiographic evidence , which was the only stone that was worked on during this procedure and lightening of the stone, giving some information that indicated there is some fragmentation of the stone. The patient did tolerate the procedure well, there were no arrythmias observed or reported from anesthesia and no skin changes observed over the area of sh ockwave. The patient was then transferred to PACU in stable condition. Please note that I was present throughout the entire length of the procedure. PLAN: The patient will be discharged home after meeting anesthesia criteria. Prescriptions for norco, miralax and flomax were provided. The patient understands if there is any nausea, vomiting, fever, chills or develops gross hematuria, persistent or new pain or symptoms to come back to the Emergency Room for evaluation by urologic surgery. Patient to follow up in the next month for follow up appointment and follow up KUB.[facility] HospitalComment on above:Result Comment: Electronically Signed By: HODAN ARREGUIN, NANCY\.br\Date and Time Signed: 01/04/25 12:33 EDTOutpatient Surgery Discharge Instructionon [id number] Surgery Discharge InstructionOutpatient Surgery Discharge Instruction [place] [address] Patient Discharge Instructions PERSON INFORMATION Name: PRITI KAROL Kaur Date of : 1970 Current Date: 01/04/2025 11:58:40 PHYSICIANS Admitting Physician: NANCY QUINONEZ MD Discharge Diagnosis: KAROL PLASCENCIA has been given the following list of follow-up instructions, prescriptions, and patient education materials: PATIENT FOLLOW-UP INFORMATION Diet: Regular Discharge Activity: Resume normal activities in 24 hours, Arrange for a responsible adult supervision for 24 hours, Expect mild pain, Expect minimal amount of drainage and/or bleeding, Activity as tolerated Discharge Restrictions: No driving for 24 hrs, Do not make important decisions for 24 hours, Do notdrink alcoholic beverages for 24 hours Call Your Doctor For: Temperature above 101.5 degrees, Redness, swelling, or pus at operative site,Severe pain at the operative site, Persistent vomiting Additional Instructions: Hydrate vigorously with at least 2L/day Flomax for one week Tylenol for pain. Roxicodone for breakthrough Blood in urine, urgency expected after procedure F/Uin 6 weeks w/ ART HISTORIAN or PA w/ KUB, MARTIN prior Bruising in area is expected IF UNABLE TO CONTACT YOUR PHYSICIAN AND YOU FEEL IT IS AN EMERGENCY, GO TO THE NEAREST EMERGENCY ROOM OR CALL 911 PRITI Carpenter BARBARA A, have received the attached patient education materials/instructions and have verbalized understanding: May we do a follow up call? Yes No I was present when discharge instructions were given Patient Signature Date Clinican/Nurse Signature Date Follow up: With: Address: When: NANCY QUINONEZ Comments: 6 weeks w/ PA or ART HISTORIAN. ANNAMARIE SALAZAR Prior Pharmacy Information: You may receive a survey from [employer] asking you to rate your care experience. Your feedback is important and will help us understand what we do well and how we can improve the quality of care we provide to you, your loved ones and our community. It???s an honor to serve you. Thank you for choosing [facility] HERE ARE THE MEDICATION CHANGES THAT OCCURRED DURING YOUR HOSPITAL STAY New Medications [id number], [address] [facility] [place], [place] [phone], [phone] oxycodone (Roxicodone 5 mg Tab) 1 Tablets By Mouth every 6 hours as needed for pain for 3 Days. Refills: 0. Medications to Continue with No Changes Other Medications bacillus coagulans-inulin (Probiotic Formula (Bacillus Coagulans)) chondroitin-glucosamine (Osteo Bi-Flex) diclofenac (diclofenac sodium) 75 Milligram By Mouth 2 times a day as needed as needed for pain. dicyclomine (dicyclomine 20 mg Tab) 1 Tablets By Mouth 2 times a day. esomeprazole (Nexium) 2.5 Milligram By Mouth every day. fexofenadine (Phylicia) 15 Milligram By Mouth 2 times a day as needed Allergy symptoms. levothyroxine (levothyroxine 50 mcg (0.05 mg) Tab) 1 Tablets By Mouth every day. liothyronine (liothyronine 5 mcg Tab) 1 Tablets By Mouth every day. lisinopril (lisinopril 20 mg Tab) 1 Tablets By Mouth every day. tamsulosin (Flomax 0.4 mg Cap) 1 Capsules By Mouth 2 times a day for 30 Days. Refills: 1. Turmeric 250 Milligram By Mouth every day. PATIENT EDUCATION INFORMATION Instructions: Medication Leaflets:[facility] HospitalXR Abdomen 1 Viewon [id number] Abdomen 1 ViewExam Date/Time: 01/04/2025 09:51 EDT Reason for Exam: Kidney stone Report IMPRESSION: NO URINARY TRACT CALCULI IDENTIFIED BY RADIOGRAPHY. EXAMINATION: XR Abdomen 1 View HISTORY: Kidney stones TECHNIQUE: Frontal view of the abdomen and pelvis COMPARISON: CT abdomen pelvis 11/14/2024 FINDINGS: No calcifications identified over the bilateral renal shadows or expected course of the ureters. Nonobstructive bowel gas pattern. No evidence of free air. No acute osseous abnormality. Ordering Provider: NANCY QUINONEZ FINAL REPORT Dictated: 01/04/2025 2:58 pm Homer Bhandari DO Signed (Electronic Signature): 01/04/2025 2:58 pm Signed by: Homer Bhandari DO Transcribed by: ARMINDA Technologist: TatiPremier Health Atrium Medical CenterCalculus Analysison [id number] Oxalate, [id number] %Invalid Interpretation [facility] HospitalComment on above:Performed By: #### [id number] ####Kalpesh [facility] [address] [place] [id number] (U)Brown Invalid Interpretation [facility] HospitalComment on above:Performed By: #### [id number] ####[place] [id number] [place], [place] [address]Ltqbpva 2CommentInvalid Interpretation [facility] HospitalComment on above:Result Comment: Calculus received wet. Wet calculi must be dried before analysis, which delays reporting of results. Leaving calculi wet (such as water, saline, blood, urine) may lead to changes in composition. Performed at: [facility] [id number] PhD Avilez VPerformed By: #### [id number] ####Kalpesh [address] [address]Cyiq:4v0Spbyxxz Interpretation [facility] HospitalComment on above:Result Comment: Single piece received.Performed By: #### [id number] ####P[facility] [address] [address]Rjlla SourceCommentInvalid Interpretation [facility] HospitalComment on above:Result Comment: Right UreterPerformed By: #### [id number] ####[address] [address]Ceeqyo Calculus Pbcibzry27 mgInvalid Interpretation [facility] HospitalComment on above:Performed By: #### [id number] ####[facility] [address] [address]Qvfk OR Intraoperative Recordon [id number] OR Intraoperative Record Main OR Intraoperative Record IntraOp Document Type FT Summary Primary Physician: NANCY QUINONEZ MD Finalized Date/Time: 12/09/24 09:23:32 Pt. Name: KAROL PLASCENCIA/Sex: 1970 Female Med Rec #: [id number] Physician: NANCY QUINONEZ MD Financial #: [id number] Pt. Type: A Room/Bed: [facility]/01 Admit/Disch: 12/07/24 09:02:54 - 12/07/24 13:05:00 Institution: Case Times FT Entry 1 Patient Times In Room 12/07/24 10:59:00 Out Room 12/07/24 11:31:00 Procedure Times Start 12/07/24 11:10:00 Stop 12/07/24 11:27:00 Anesthesia Times Start 12/07/24 10:59:00 Stop 12/07/24 11:31:00 Last Modified By: Saamntha TURNER, Brien Miner 12/07/24 11:30:53 Case Attendance FT Entry 1 Entry 2 Entry 3 Case Attendee Bunny MOTORBOAT MECHANIC INBOARD, Drake QUINONEZ MD, Samantha TURNER, Brien CRUZ Role Performed MOTORBOAT MECHANIC INBOARD Surgeon - Primary Slip Tender - Primary Time In 12/07/24 10:59:00 12/07/24 11:08:00 12/07/24 10:59:00 Time Out 12/07/24 11:31:00 12/07/24 11:31:00 12/07/24 11:13:00 Procedure CYSTOSCOPY RETROGRADE CYSTOSCOPY RETROGRADE CYSTOSCOPY RETROGRADE STENT INSERTION(Right), STENT INSERTION(Right), STENT INSERTION(Right), CYSTOSCOPY W/ HOMIUM CYSTOSCOPY W/ HOMIUM CYSTOSCOPY W/ HOMIUM LASER(Right) LASER(Right) LASER(Right) Comments , anesthesia out for 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 at 1113 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 Last Modified By: Samantha TURNER, Brien Singh RN, Brien Zelaya RN 12/07/24 11:34:07 12/07/24 11:34:07 12/07/24 11:34:07 Entry 4 Entry 5 Entry 6 Case Attendee King BARRAGAN, Jodie Hanks RN, Sherine Shannon RT(R), Sonya Rouse Role Performed Scrub - Primary Slip Tender - Relief Fabric Lay Out Worker Time In 12/07/24 10:59:00 12/07/24 11:07:00 12/07/24 11:08:00 Time Out 12/07/24 11:31:00 12/07/24 11:31:00 12/07/24 11:31:00 Procedure CYSTOSCOPY RETROGRADE CYSTOSCOPY RETROGRADE CYSTOSCOPY RETROGRADE STENT INSERTION(Right), STENT INSERTION(Right) STENT INSERTION(Right), CYSTOSCOPY W/ HOMIUM CYSTOSCOPY W/ HOMIUM LASER(Right) LASER(Right) Comments Last Modified By: Brien Singh RN, RN, Brien Zelaya RN 12/07/24 11:34:07 12/07/24 11:34:07 12/07/24 11:34:07 General Comments: Lio Nance- from [facility] in OR for case to operate laser. Perioperative Protocols FT Pre-Care Text: Implements protective measures prior to operative or invasive procedure, confirms identity before the operative or invasive procedure, verifies operative procedure, surgical site, and laterality Entry 1 Procedure(s) CYSTOSCOPY RETROGRADE Patient Identity Birthday, ID Band STENT INSERTION(Right), Verified (select at Check, Patient CYSTOSCOPY W/ HOMIUM least 2): Participation LASER(Right) Consents / H and P Anesthesia Consent, Operative Site N/A Verified H&P, Surgery/Procedure Marking Verified Consent Surgical Site Yes Laterality Verified Yes Verified Correct Patient Yes Availability Equipment, Implant, Position Verified Verified (If Medication, X-ray Applicable) Prep Dry n/a PreOp Antibiotic Yes Given Time Out Drake Hollis CRNA, Time Out Complete 12/07/24 11:09:00 Participants HODAN ARREGUIN, Samantha CRUZ RN, Brien Miner, King BARRAGAN, Demario Zamora RN, Shiva Friend RT(R), Sonya Rouse Outcomes Met? Yes Last Modified By: Brien Singh RN 12/07/24 11:15:14 Post-Care Text: The patient is free from signs and symptoms of injury caused by extraneous objects Allergy Information FT Pre-Care Text: Verifies allergies Entry 1 Allergies Reviewed? Yes Allergies Reviewed Self/Patient With Outcomes Met? Yes Last Modified By: Brien Singh RN 12/07/24 10:31:37 Post-Care Text: The patient received appropriate medication(s) safely administered during the perioperative period Surgical Procedures FT Entry 1 Entry 2 Procedure Description Procedure CYSTOSCOPY RETROGRADE CYSTOSCOPY W/ HOMIUM STENT INSERTION LASER Modifiers Right Right Surgeon Description CYSTOSCOPY, RIGHT CYSTOSCOPY, RIGHT URETEROSCOPY, RIGHT URETEROSCOPY, RIGHT URETERAL STONE BASKET URETERAL STONE BASKET EXTRACTION, RIGHT EXTRACTION, RIGHT URETERAL STENT PLACEMENT URETERAL STENT PLACEMENT Primary Procedure Yes No Primary Surgeon HODAN ARREGUIN, HODAN ARREGUIN, NANCY CRUZ Start 12/07/24 11:10:00 12/07/24 11:10:00 Stop 12/07/24 11:27:00 12/07/24 11:27:00 Anesthesia Type General General Surgical Service Anesthesia Anesthesia Wound Class 2 - Clean-Contaminated 2 - Clean-Contaminated Last Modified By: Samantha TURNER, Brien Zelaya RN 12/07/24 11:34:41 12/07/24 11:34:48 General Case Data FT Pre-Care Text: Classifies surgical wound, implements aseptic technique, initiates traffic control Entry 1 Case Information OR OR 1 FT Case Level Level 3 Wound Class 2 - Clean-Contaminated Specialty Anesthesia ASA Class 2 Preop Diagnosis RIGHT URETERAL STONE Postop Same As Preop Yes Postop Diagnosis RIGHT URETERAL STONE Outcomes Met? Y (more content not included)...[facility]ructions[facility] Discharge InstructionsDischarge Instructions KAROL PLASCENCIA :1970 Visit Date:12/07/2024 Inpatient Discharge Instructions Your Care Team Admitting Physician - NANCY QUINONEZ MD Referring Physician - NANCY QUINONEZ MD Reason for Your Visit RIGHT URETERAL STONE Tests Performed Calculi Analysis Urinary -- Results Pending -- XR Abdomen 1 View -- Results Pending -- Please visit your patient portal for your results or contact your primary care physician. Procedure History ESWL - Extracorporeal shockwave lithotripsy for renal calculus (12/21/2021), Cystoscopic insertion of ureteric stent (11/29/2021), Cystoscope (11/13/2021), Colonoscopy (08/26/2018), Biopsy of breast,D&C - Dilatation and curettage, Diagnostic endoscopy. Discharge Vitals Temperature (Oral) 36.5 ???C Heart Rate (Monitored) 96 Respiratory Rate 16 Blood Pressure 140/86 Height 166 cm Weight 106.8 kg BMI 38.76 What to do next Instructions From Your Doctor Event Name Event Result Discharge Instructions Freetext Hydrate w/ at least 2L/day. Pain control w/ tylenol, motrin. Take roxicodone for breakthrough. Flomax, pyridium for stent discomfort. Complete antibiotic course. KUB in 6 weeks then Left. ESWL Pull stent in 5 days. Take tylenol beforehand. Discharge Activity Expect mild pain, Expect minimal amount of drainage and/or bleeding Discharge Restrictions No driving for 24 hrs, Do not make important decisions for 24 hours, Do not drink alcoholic beverages for 24 hours Discharge Diet(s) Regular Call Your Doctor For Temperature above 101.5 degrees, Redness, swelling, or pus at operative site, Severe pain at the operative site, Persistent vomiting Discharge Instructions Discharge Instructions New Follow Up Appointments after Discharge Follow Up with NANCY QUINONEZ When: Medications What How Much When Instructions Next Dose New oxycodone (Roxicodone 5 mg Tab) 1 Tablets By Mouth Every 6 hours as needed for for pain Duration: 2 Days Pickup at [facility]/pharmacy #[id number] New phenazopyridine (Pyridium 100 mg Tab) 1 Tablets By Mouth 3 times a day Duration: 3 Days Pickup at [facility]/pharmacy #[id number] Unchanged bacillus coagulans-inulin (Probiotic Formula (Bacillus Coagulans)) Unchanged chondroitin-glucosamine (Osteo Bi-Flex) Unchanged diclofenac (diclofenac sodium) 75 Milligram By Mouth 2 times a day as needed for as needed for pain Unchanged dicyclomine (dicyclomine 20 mg Tab) 1 Tablets By Mouth 2 times a day Unchanged esomeprazole (Nexium) Unchanged fexofenadine (Phylicia) By Mouth As needed for Allergy symptoms Unchanged levothyroxine (levothyroxine 50 mcg (0.05 mg) Tab) 1 Tablets By Mouth Every day Unchanged liothyronine (liothyronine 5 mcg Tab) 1 Tablets By Mouth Every day Unchanged lisinopril (lisinopril 20 mg Tab) 1 Tablets By Mouth Every day Unchanged tamsulosin (Flomax 0.4 mg Cap) 1 Capsules By Mouth 2 times a day Duration: 30 Days Unchanged Turmeric Pharmacy Information [facility]/pharmacy #[id number]: [address], [place] [phone] Allergies No Known Medication Allergies Problems Ongoing - Any problem that you are currently receiving treatment for. Cervical adenopathy History of kidney stones Kidney stone Morbid obesity with BMI of 40.0-44.9, adult Right ear pain Sinus congestion Thyroid nodule Ureteral stone Devices Implanted/Removed This Visit Notice: You have devices implanted this visit that may not be MRI compatible. Implanted CYSTOSCOPY RETROGRADE STENT INSERTION Ureter R VORA URETERAL STENT CASCADE 6FR 12/07/2024 Education Materials Common Emergency Awareness Tips IS IT A STROKE? Act FAST and Check for these signs: FACE Does the face look uneven? ARM Does one arm drift down? SPEECH Does their speech sound strange? TIME Call at any sign of stroke Heart Attack Signs Chest discomfort: Most heart attacks involve discomfort in the center of the chest and lasts more than a few minutes, or goes away and comes back. It can feel like uncomfortable pressure, squeezing, fullness or pain. Discomfort in upper body: Symptoms can include pain or discomfort in one or both arms, back, neck, jaw or stomach. Shortness of breath: With or without discomfort. Other signs: Breaking out in a cold sweat, nausea, or lightheaded. Remember, MINUTES DO MATTER. If you experience any of these heart attack warning signs, call to get immediate medical attention! Patient Survey You may receive a survey in the mail asking you about your stay with us. We want to hear from you, please share your experience with us by completing your survey. Thank you for choosing [facility]. Joi Award Nomination The JOI (Diseases Attacking the Immune SYstem) Award is an international recognition program thathonors and celebrates the skillful, compassionate care nurses provide every day. A (more content not included)...[facility] HospitalComment on above:Result Comment: Electronically Signed By: My Rowan RN\.br\Date and Time Signed: 12/07/24 11:56 EDTInpatient Patient Summaryon [id number] Patient SummaryInpatient Patient Summary [place] [id number] [facility] Clinical Discharge Instructions PERSON INFORMATION Name: KAROL PLASCENCIA PHYSICIANS Admitting Physician: NANCY QUINONEZ MD Attending Physician: NANCY QUINONEZ MD PCP: Yaima ARREGUIN, Sue Discharge Diagnosis: Comment: PATIENT EDUCATION INFORMATION Instructions: Medication Leaflets: Follow up: With: Address: When: NANCY QUINONEZ MEDICATION LIST New Medications [id number], [address], [place] [id number], [phone] oxycodone (Roxicodone 5 mg Tab) 1 Tablets By Mouth every 6 hours as needed for pain for 2 Days. Refills: 0. phenazopyridine (Pyridium 100 mg Tab) 1 Tablets By Mouth 3 times a day for 3 Days. Refills: 0. Medications to Continue with No Changes Other Medications bacillus coagulans-inulin (Probiotic Formula (Bacillus Coagulans)) chondroitin-glucosamine (Osteo Bi-Flex) diclofenac (diclofenac sodium) 75 Milligram By Mouth 2 times a day as needed as needed for pain. dicyclomine (dicyclomine 20 mg Tab) 1 Tablets By Mouth 2 times a day. esomeprazole (Nexium) fexofenadine (Phylicia) By Mouth as needed Allergy symptoms. levothyroxine (levothyroxine 50 mcg (0.05 mg) Tab) 1 Tablets By Mouth every day. liothyronine (liothyronine 5 mcg Tab) 1 Tablets By Mouth every day. lisinopril (lisinopril 20 mg Tab) 1 Tablets By Mouth every day. tamsulosin (Flomax 0.4 mg Cap) 1 Capsules By Mouth 2 times a day for 30 Days. Refills: 1. Turmeric Comment:[facility] OR PACU I Recordon [id number] OR PACU I RecordMain OR PACU I Record PACU Phase I Document Type FT Summary Primary Physician: NANCY QUINONEZ MD Finalized Date/Time: 12/07/24 12:10:07 Pt. Name: KAROL PLASCENCIA/Sex: 1970 Female Med Rec #: [id number] Physician: NANCY QUINONEZ MD Financial #: [id number] Pt. Type: A Room/Bed: AS07/01 Admit/Disch: 12/07/24 09:02:54 - Institution: Case Times PACU I FT Pre-Care Text: Identifies barriers to communication and implements measures to provide psychological support Develops individualized plan of care, and ensures continuity of care Maintains patient's dignity and privacy, and maintains patient confidentiality Identifies and reports philosophical, cultural, and spiritual beliefs and values Identifies individual values and wishes concerning care Implements aseptic technique, and administers prescribed antibiotic therapy and immunizing agents as ordered Evaluates postoperative tissue perfusion Implements thermoregulation measures, and monitors body temperature Evaluates postoperative respiratory status Evaluates postoperative cardiac status Evaluates postoperative neurological status Assesses pain control, collaborated in initiating patient-controlled analgesia and implements alternative methods of pain control Verifies allergies, administers prescribed medications and solutions, evaluates response to medications Entry 1 In PACU I 12/07/24 11:32:00 Discharge from PACU 12/07/24 12:02:00 I Outcomes Met? Yes Last Modified By: Chuyita Velasquez RN 12/07/24 12:09:59 Post-Care Text: The patient demonstrates knowledge of the expected response to the operative or invasive procedure The patient's care is consistent with the individualized perioperative plan of care The patient's rightto privacy is maintained The patient's value system, lifestyle, ethnicity, and culture are considered, respected, and incorporated into the perioperative plan of care The patient participates in decisions affecting his or her perioperative plan of care The patient is free from signs and symptoms of infection The patient has wound/tissue perfusion consistent with or improved from baseline levels established preoperatively The patient is at or returning to normothermia at the conclusion of the immediate postoperative period The patient's respiratory function is consistent with or improved from baseline levels established preoperativelyThe patient's cardiovascular status is consistent with or improved from baseline levels established preoperatively The patient's cardiovascular status is consistent with or improved from baseline levels established preoperatively The patient demonstrates and/or reports adequate pain control throughout the perioperative period The patient received appropriate medication(s), safely administered during the perioperativeperiod Acuity Level PACU I FT Entry 1 Start Time 12/07/24 11:32:00 Stop Time 12/07/24 12:02:00 Acuity Level Acuity Level I Last Modified By: Chuyita Velasquez RN 12/07/24 12:10:06 Finalized By: Chuyita Velasquez RN Document Signatures Signed By: Chuyita Velasquez RN 12/07/24 12:10[facility] HospitalOperative Reporton [id number] ReportOperative Report Patient: KAROL PLASCENCIA Age: 54 years Sex: Female : 1970 Associated Diagnoses: None Author: NANCY QUINONEZ MD Procedure SURGEON: Nancy Quinonez MD PREOPERATIVE DIAGNOSIS: Right obstructing ureteral stone POSTOPERATIVE DIAGNOSIS: Same PROCEDURE: Cystoscopy, right ureteroscopy, right ureteral stone basketing, right ureteral stent placement FINDINGS: Impacted distal ureteral stone successfully basketed and sent for analysis ANESTHESIA: General INTRAVENOUS FLUIDS: None ESTIMATED BLOOD LOSS: 0cc TUBES AND DRAINS: 6 x 26 cm double-J ureteral stent with strings SPECIMENS: Stone for analysis COMPLICATIONS: None INDICATIONS FOR PROCEDURE: Patient is a 54-year-old female presenting with right-sided flank pain. CT abdomen pelvis showed anobstructing right ureteral stone. She presents for definitive stone treatment today. H&P was reviewed, informed consent was obtained, patient understood risk, benefits, alternatives to the procedure and wished to proceed. OPERATIVE DETAIL: Patient was brought to the operative suite placed on continuous pulse oximetry and cardiac monitoring anesthesia. IV antibiotics including 2 g of Ancef was administered. She was then placed in a dorsolithotomy position and prepped and draped in normal sterile fashion. Timeout performed confirming patient, procedure, side, all in the room agreed. A well-lubricated 22 Martiniquais cystoscopic sheath witha 30 degree lens was inserted into the urethral meatus and advanced into the bladder. Upon enteringthe bladder we did a teran cystoscopy and directed attention to the right ureteral orifice which we cannulated with a Glidewire. We then passed a dual-lumen and passed the second wire up. We then took a semirigid scope all the way to the proximal ureter into the renal pelvis and no stone was visualized within the kidney. The scope was then slowly retracted and at the distal ureter we visualized approximately 5 mm stone. We then obtained a 0 tip nitinol basket and basketed the stone. Then over theremaining wire we placed a 6 x 26 cm double-J ureteral stent visualizing a curl in the renal pelvisand a curl in the bladder. Patient bladder was then emptied. Strings on the stent were then taped to the left medial thigh using benzoin and Steri-Strips along with Tegaderm. This concluded the procedure. Patient was then awakened anesthesia and transferred to PACU in stable condition. PLAN: F/U in 4 to 6 weeks for left-sided extracorporeal shockwave lithotripsy Tylenol, Motrin for pain, Roxicodone for breakthrough Flomax, Pyridium for stent discomfort Post stenting 5 daysNoNorwalk Memorial HospitalComment on above:Result Comment: Electronically Signed By: HODAN ARREGUIN, NANCY\.br\Date and Time Signed: 12/07/24 11:35 EDTOutpatient Surgery Discharge Instructionon 12-07-2024 Outpatient Surgery Discharge InstructionOutpatient Surgery Discharge Instruction [place] [id number] Patient Discharge Instructions PERSON INFORMATION Name: KAROL PLASCENCIA Date of : 1970 Current Date: 12/07/2024 11:36:27 PHYSICIANS Admitting Physician: NANCY QUINONEZ MD Discharge Diagnosis: KAROL PLASCENCIA has been given the following list of follow-up instructions, prescriptions, and patient education materials: PATIENT FOLLOW-UP INFORMATION Diet: Regular Discharge Activity: Expect mild pain, Expect minimal amount of drainage and/or bleeding Discharge Restrictions: No driving for 24 hrs, Do not make important decisions for 24 hours, Do notdrink alcoholic beverages for 24 hours Call Your Doctor For: Temperature above 101.5 degrees, Redness, swelling, or pus at operative site,Severe pain at the operative site, Persistent vomiting Additional Instructions: Hydrate w/ at least 2L/day Pain control w/ tylenol, motrin. Take roxicodone for breakthrough Flomax, pyridium for stent discomfort Complete antibiotic course KUB in 6 weeks then L. ESWL Pull stent in 5 days. Take tylenol beforehand IF UNABLE TO CONTACT YOUR PHYSICIAN AND YOU FEEL IT IS AN EMERGENCY, GO TO THE NEAREST EMERGENCY ROOM OR CALL [phone] PRITI Carpenter BARBARA A, have received the attached patient education materials/instructions and have verbalized understanding: May we do a follow up call? Yes No I was present when discharge instructions were given Patient Signature Date Clinican/Nurse Signature Date Follow up: With: Address: When: NANCY QUINONEZ Pharmacy Information: You may receive a survey from [employer]ulog[employer] Wong asking you to rate your care experience. Your feedback is important and will help us understand what we do well and how we can improve the quality of care we provide to you, your loved ones and our community. It???s an honor to serve you. Thank you for choosing [facility] HERE ARE THE MEDICATION CHANGES THAT OCCURRED DURING YOUR HOSPITAL STAY New Medications [id number], [address], [place] [id number], [phone] oxycodone (Roxicodone 5 mg Tab) 1 Tablets By Mouth every 6 hours as needed for pain for 2 Days. Refills: 0. phenazopyridine (Pyridium 100 mg Tab) 1 Tablets By Mouth 3 times a day for 3 Days. Refills: 0. Medications to Continue with No Changes Other Medications bacillus coagulans-inulin (Probiotic Formula (Bacillus Coagulans)) chondroitin-glucosamine (Osteo Bi-Flex) diclofenac (diclofenac sodium) 75 Milligram By Mouth 2 times a day as needed as needed for pain. dicyclomine (dicyclomine 20 mg Tab) 1 Tablets By Mouth 2 times a day. esomeprazole (Nexium) fexofenadine (Phylicia) By Mouth as needed Allergy symptoms. levothyroxine (levothyroxine 50 mcg (0.05 mg) Tab) 1 Tablets By Mouth every day. liothyronine (liothyronine 5 mcg Tab) 1 Tablets By Mouth every day. lisinopril (lisinopril 20 mg Tab) 1 Tablets By Mouth every day. tamsulosin (Flomax 0.4 mg Cap) 1 Capsules By Mouth 2 times a day for 30 Days. Refills: 1. [facility] PATIENT EDUCATION INFORMATION Instructions: Medication Leaflets:[facility] HospitalXR Abdomen 1 Viewon [id number] Abdomen 1 ViewExam Date/Time: 12/07/2024 11:29 EDT Reason for Exam: Abdominal pain Report IMPRESSION: OPERATIVE FLUOROSCOPY DISCUSSED. CLINICAL HISTORY: Abdominal pain COMPARISON: NONE. FINDINGS: 2 images. Intraoperative images show guidewire advanced into right ureter with placement of right double-J ureteral stent. See operative note for additional information. Technical Comments: Ka,r in mGy = 5.3 DAP = 403.11 Ordering Provider: NANCY QUINONEZ FINAL REPORT Dictated: 12/07/2024 12:11 pm Ari Bonner MD Signed (Electronic Signature): 12/07/2024 12:11 pm Signed by: Ari Bonner MD Transcribed by: ARMINDA Technologist: JohnPremier Health Atrium Medical CenterUrology Office/Clinic Noteon [id number] Office/Clinic NoteUrology Office/Clinic Note Chief Complaint ER followup HPI Staff Follow up to Hospital follow up. Pt was seen at [facility] 11/14/[address] due to abdominal pain CT SCAN 11/14/24 Previous Dx: kidney stone. S/p litholink 08/12/22. L laser litho 12/21/21. L ESWL 11/29/21. Pt doesn't feel like she passed the stone. Pt has lower abdominal pain right side off and on. Denies visible blood. Denies dysuria. History of Present Illness Tests reviewed: reviewed UA, ER notes & labs & CT scan I have reviewed the previous health record information and history for this patient from Dr. Chand and external providers. I have reviewed and verified the staff [...] See HPI. Physical Exam Vitals & Measurements T: 36.7 ???C(Temporal Artery) HR: 105(Peripheral) RR: 16 BP: 126/92 HT: 164 cm HT: 65 in WT: 237.438 lb WT: 107.7 kg BMI: 40.04 General Appearance: alert , no acute distress, well nourished, well developed female. Assessment/Plan Dr. Chand pt here for ER f/u due to R UPJ stone. PMH: AK no. CVA no. DVT no. PE no. Smoking hx no. Anticoagulated no. Issues voiding no. PSH: Abdominal surgeries no. 1. Ureteral stone (N20.1: Calculus of ureter) [facility] 11/14/24 due to R flank and RLQ pain. Renal fxn - BUN 21, Cr 0.87, GFR >60. CT AP wo con 11/14/24 [facility] - R hydro caused by a R UPJ calculus 5 x 7 mm. R fat stranding adjacent the R renal pelvis. Punctate R interpolar and upper pole calculi nonobstructive. Nonobstructive LLP calculus. No L hydro. KUB 12/03/24 [facility] [place] - Report pending. Personal review: bowel contents obstruct view. Reviewed imaging results. Not likely that stone has passed as pt still has some pain. UA neg. Discussed options including MET vs ESWL vs ureteroscopy. Risks/benefits of each discussed. Recommended ureteroscopy given stones are present within the kidney as well. Pt wishes to proceed with intervention as she does not want to have to pass stone on own. -Will schedule a Cystoscopy with Right Retrogrades, Right Ureteroscopy, Right Laser Litho, Right Stone Basket, Right possible stent placement. The procedure risks, benefits, alternatives and complications have been discussed with the patient. These include but are not limited to bleeding, pain, infection, ureteral perforation, extravasation, stricture formation, sepsis, obstruction, inability to reach the stone, inability to fragment the stone, and inability to retrieve all stone fragments. Theneed for ancillary procedures such as stent placement and removal, retrograde urography, and percutaneous nephrostomy were also discussed. The patient also understood that a ureteral stent may be placed and removal of the stent is critical. Failure to follow up for stent removal can result in recurrent UTIs, encrustation of the stent, loss of kidney function and need for nephrectomy. All of theirquestions and concerns have been addressed. Full informed consent has been obtained. Will order General anesthesia. 2. Kidney stone (N20.0: Calculus of kidney) K[facility] 07/18/22 - Bilateral nephrolithiasis 2 mm in both kidneys. LithoLink 08/12/22 - Low void volume, urine citrate is elevated, calcium in urine is slightly elevated. KUB 01/23/23 - Neg but evaluation limited due to dense bowel overlying content. KUB 01/30/24 [facility] - Neg. Personal review: neg. CT AP wo con 11/14/24 [facility] - Punctate R interpolar and upper pole calculi nonobstructive. Nonobstructive LLP calculus. No L hydro. -See #1 Patient with an obstructing right proximal ureteral stone. We will proceed to the OR for right ureteroscopy, right laser lithotripsy, right ureteral stent placement. Risk, benefits, alternatives werediscussed in extensive detail with her and patient communicates full understanding. Thus, we will proceed as such. Patient may potentially benefit from extracorporal shockwave lithotripsy for a left intrarenal stone. Follow-up With When Contact Information HODAN ARREGUIN, NANCY, ISAÍAS Additional Instructions: sched cysto, R URS, laser litho, possible stent Patient Education Ureteroscopy Muna Carpenter, personally scribed for Dr. Quinonez on 12/03/2024 13:59:29. . Portions of this record may have been created with voice recognition artificial intelligence software, specifically [employer]by, [employer] and or [employer] ( H[employer] ). Substitutions may have occurred due to t (more content not included)...[facility] HospitalComment on above:Result Comment: Electronically Signed By: NANCY QUINONEZ MD\.br\Date and Time Signed: 12/03/24 15:48 EDT\.br\Electronically Co-Signed By: Muna Cuevas\.br\Date and Time Co-Signed: 12/03/2513:00 EDTXR Abdomen 1 Viewon [id number] Abdomen 1 ViewExam Date/Time: 12/03/2024 13:31 EDT Reason for Exam: Kidney stone Report IMPRESSION: NONSPECIFIC ABDOMEN. CLINICAL HISTORY: Kidney stone COMPARISON: 12/10/2021 FINDINGS: Gas and stool in colon. Gas in small bowel. No focal or diffuse small bowel dilatation, mass effect, abnormal calcification. Osseous structures intact. Technical Comments: Kar in mGy = n.a DAP = n.a Ordering Provider: NANCY QUINONEZ FINAL REPORT Dictated: 12/03/2024 3:40 pm Ari Bonner MD Signed (Electronic Signature): 12/03/2024 3:40 pm Signed by: Ari Bonner MD Transcribed by: ARMINDA Technologist: [facility] Main CampusUrine Cultureon [id number] identified Cx Nom (U)ORGANISM: Escherichia coli (O:ESCCOL) [place] Count >100,000 Aerobic BETH Charge (NMIC56) SUSCEPTIBILITY ORGANISM: O:ESCCOL ANTIBIOTIC INTERPRETATION BETH Amikacin S <16 Amoxacillin/K Clavulanate S <8 Ampicillin S <8 Ampicillin/Sulbactam S <4 Aztreonam S <4 Cefazolin S <2 Cefepime S <2 Ceftazidime S <1 Ceftazidime/Avibactam S <4 Ceftolozane/Tazobactam S <2 Ceftriaxone S <1 Cefuroxime S <4 Ciprofloxacin S <0.25 Ertapenem S <0.5 Gentamicin S <2 Levofloxacin S <0.5 Meropenem S <1 Meropenem/Vaborbactam S <2 Nitrofurantoin S <32 Piperacillin/Tazobactam S <8 Tetracycline S <4 Tigecycline S <2 Tobramycin S <2 Trimethoprim/Sulfamethoxazole S <0.5 S = SUSCEPTIBLE I = INTERMEDIATE R = RESISTANT BLANK = DATA NOT AVAILABLE, OR DRUG NOT ADVISABLE OR TESTED R* = RESISTANCE DUE TO EXTENDED SPECTRUM BETA-LACTAMASES ESBL = EXTENDED SPECTRUM BETA-LACTAMASE TFG = THYMIDINE-DEPENDENT STRAIN ANDRE = BETA-LACTAMASE POSITIVE IB = INDUCIBLE BETA-LACTAMASE. APPEARS IN PLACE OF 'S' WITH SPECIES KNOWN TO POSSESS INDUCIBLE BETA-LACTAMASES. POTENTIALLY THEY MAY BECOME RESISTANT TO ALL B-LACTAM DRUGS. PERFORMED BY: [place] [address] PATHOLOGIST SHORTS SIFTER JOSE ENRIQUE CASEY M.D.NormalHca Florida Largo Hospital Physician GroupComment on above: Performed By: #### CUU #### [place] [address] USACytology Reporton [id number] report Cyto stain.thin prep Doc (Cvx/Vag)(NOTE) Path Number: [id number] DIAGNOSIS Imaged ThinPrep Pap - Cervical (1 monolayer slide): Specimen Adequacy: Satisfactory for evaluation. - Endocervical/transformation zone component present. Descriptive Diagnosis: Negative for intraepithelial lesion or malignancy. Cytotech Screener: EY Electronically Signed Out Margot Rand CT(ASCP) ey/07/26/2024 Source of Specimen: A: Imaged ThinPrep Pap - Cervical (1 monolayer slide) HPV Reflex?......................HPV if Abnormal Clinical History Postmenopausal Z01.419 Routine supervisor type photography exam without abnormal findings LMP: 01/23/2016 Processing Lab: [address] [address] Interpretation performed at [address] [address] This Pap Test has been evaluated with the assistance of the Nerve.comPrep Pap Test Imaging System. The Pap smear is a screening test primarily for squamous epithelial lesions, which is subject to both false negative and false positive results. Your patient should be reminded to consult you immediately if she experiences any suspicious signs or symptoms, regardless of her Pap smear result. GYNECOLOGIC CYTOLOGY REPORT Patient Name: KAROL PLASCENCIA [facility] Rec: [id number] [facility] ANATOMIC PATHOLOGY [address] [place] [address]. [place], [place] [address] NoMercy Health [facility] Regional Medical CenterAmbulatory Visit Summaryon [id number] Visit SummaryAmbulatory Visit Summary KAROL PLASCENCIA Vincent :1970 Visit Date:02/02/2024 Ambulatory Visit Instructions Your Care Team Primary Care Physician - uSe Erwin MD This Is Your Medications List aspirin [...] you for choosing us for your care. [facility] [phone] Reminders From: Glenys Zimmer To: EU - Administrative; Sent: 02/02/2024 08:26:12 EDT Show up: 05/30/2025 08:17:00 EST Subject: 18 mo appt Due Date/Time: 08/01/2025 08:17:00 EDT Reminder/Recall SCHEDULE KAROL PLASCENCIA IN 18 [address] [facility] CenterUrology Office/Clinic Noteon [id number] Office/Clinic NoteUrology Office/Clinic Note Chief Complaint 1 year follow up HPI Staff 1 yr with [facility] Previous Dx: kidney stone. S/p litholink [...] and history for this patient from Dr. Chand. I have reviewed and verified the staff [...] Information MANNIE ARREGUIN, Jordi Mckeon, URL [address] [address]- Additional Instructions: 1.5 yrs with KUB Patient Education Dietary Guidelines to Help Prevent Kidney Stones I, Manjula Sheikh, personally scribed for Dr. Chand on 02/02/2024 08:12:47. . Documentation recorded by the scribe, Manjula Sheikh, accurately reflects the services(s) I performed and decisions made by me. Authenticated by Dr. Chand on 02/02/2024 08:13:48. Portions of this record may have been created with voice recognition artificial intelligence software, specifically [employer]ixby, [employer] and or [employer] ( HLM ). Substitutions may have occurred due to the [...] SARS-CoV-2 (COVID-19) mRNA-1273 vaccine (more content not included)...Normal [facility]rium Medical CenterComment on above:Result Comment: Electronically Signed By: MANNIE ARREUGIN, Jordi Mckeon\.br\Date and Time Signed: 02/02/24 08:14 EDT\.br\Electronically Co-Signed By: Manjula Sheikh\.br\Date and Time Co- Signed: 02/02/24 08:13 EDTAlanine aminotransferase [Enzymatic activity/volume] in Serum or PlasmaOrdered By: Shubham Rodrigues on 82-88-2637MOP [Catalytic activity/Vol]27 U/L7-52[facility] HospitalAlbumin [Mass/volume] in Serum or Plasma by Bromocresol green (BCG) dye binding methoOrdered By: Shubham Rodrigues on 70-13-8073Mlozloa BCG dye [Mass/Vol]3.9 g/dL3.5-5.7FSuburban Community Hospital & Brentwood HospitalAlkaline phosphatase [Enzymatic activity/volume] in Serum or PlasmaOrdered By: Shubham Rodrigues on 51-06-5581TOF [Catalytic activity/Vol]138 U/L 34-104Ohio[facility] Mansfield HospitalAspartate aminotransferase [Enzymatic activity/volume] in Serum or PlasmaOrdered By: Shubham Rodrigues on 72-14-5526YKG [Catalytic activity/Vol]20 U/W74-48RrfxggxzqOhiohealth Mansfield HospitalBasophils Auto (Bld) [#/Vol]Ordered By: Shubham Rodrigues on 00-14-0347Xddkgaeon (Bld) [#/Vol] 0.1 10*3/uL0.0-0.2FSuburban Community Hospital & Brentwood HospitalBasophils/100 WBC Auto (Bld) Ordered By: Shubham Bullockxa on 37-58-4915Kiqpoxwdq/100 WBC (Bld)0.8 %.[facility] HospitalBilirubin.total [Mass/volume] in Serum or PlasmaOrdered By: Shubham Rodrigues on 81-71-0426Odwdcgrsu [Mass/Vol]0.4 mg/dL0.3-1.0[facility] HospitalCalcium [Mass/volume] in Serum or PlasmaOrdered By: Shubham Rodrigues on 44-38-2367Phaoefb [Mass/Vol]9.1 mg/dL8.6-10.3FSuburban Community Hospital & Brentwood HospitalCarbon dioxide, total [Moles/volume] in Serum or PlasmaOrdered By: Shubham Rodrigues on 24-69-9227CX5 [Moles/Vol]30.2 mmol/L21.0-31.0[facility] HospitalChloride [Moles/volume] in Serum or PlasmaOrdered By: Shubham Rodrigues on 49-32-1190Tdmndzbh [Moles/Vol]104 mmol/F01-323KndgdzjwtOhiohealth Mansfield HospitalCreatinine [Mass/volume] in Serum or PlasmaOrdered By: Shubham Bullockxa on 87-69-6145Hngnptjayu [Mass/Vol]0.69 mg/dL0.60-1.20[facility] HospitalEosinophils Auto (Bld) [#/Vol]Ordered By: Shubham Bullockxa on 59-24-8567Zaswhnhpkll (Bld) [#/Vol]0.2 10*3/uL0.0-0.45[facility] HospitalEosinophils/100 WBC Auto (Bld)Ordered By: Shubham Bullockxa on 12-25-2022 Eosinophils/100 WBC (Bld)3.0 %.[facility] HospitalErythrocyte distribution width Auto (RBC) [Ratio]Ordered By: Shubham Rodrigues on 12-25-2022 Erythrocyte distribution width (RBC) [Ratio]14.4 %11.9-15.3FSuburban Community Hospital & Brentwood HospitalGlobulin Calc (S) [Mass/Vol]Ordered By: Shubham Rodrigues on 12-25-2022 Globulin (S) [Mass/Vol]2.8 g/dLOhiohealth Mansfield HospitalGlucose [Mass/volume] in Serum or PlasmaOrdered By: Shubham Rodrigues on 43-59-7265Iqxpnlm [Mass/Vol]99 mg/rY01-996HtgywawcrOhiohealth Mansfield HospitalHematocrit Auto (Bld) [Volume fraction]Ordered By: Shubham Bullockxa on 38-12-1316Clktbyhvnu (Bld) [Volume fraction]39.1 %34.0-46.4FSuburban Community Hospital & Brentwood HospitalHemoglobin [Mass/volume] in BloodOrdered By: Shubham Bullockxa on 85-17-7393Esckgobhnt (Bld) [Mass/Vol]13.0 g/dL11.8-15.4FSuburban Community Hospital & Brentwood HospitalLeukocytes [#/volume] corrected for nucleated erythrocytes in Blood by Automated coun Ordered By: Shubham Rodrigues on 82-07-4118UKP corrected for nucl RBC Auto (Bld) [#/Vol]6.8 10*3/uL3.8-11.6FSuburban Community Hospital & Brentwood HospitalLymphocytes Auto (Bld) [#/Vol]Ordered By: Shubham Bullockxa on 75-84-5139Uoqvcixaggw (Bld) [#/Vol]1.5 10*3/uL1.00-4.8[facility] HospitalLymphocytes/100 WBC Auto (Bld) Ordered By: Shubham Bullockxa on 34-91-4350Zqizpqisshk/100 WBC (Bld)22.8 %.[facility] HospitalH Auto (RBC) [Entitic mass]Ordered By: Shubham Bullockxa on 41-57-5317AEU (RBC) [Entitic mass]28.9 pg24.7-34.3FSuburban Community Hospital & Brentwood HospitalMCHC Auto (RBC) [Mass/Vol]Ordered By: Shubham Bullockxa on 07-73-0420CGLN (RBC) [Mass/Vol]33.2 g/dL32.0-35.0[facility] HospitalMCV Auto (RBC) [Entitic vol]Ordered By: Shubham Olexa on 49-91-4887EPX (RBC) [Entitic vol]86.9 fZ45-881PnhlexhmjOhiohealth Mansfield HospitalMonocytes Auto (Bld) [#/Vol]Ordered By: Shubham Olexa on 93-61-0603Acavrmfcj (Bld) [#/Vol]0.3 10*3/uL0.0-0.8[facility] HospitalMonocytes/100 WBC Auto (Bld)Ordered By: Shubham Bullockxa on 86-24-0840Jmcrxhyvz/100 WBC (Bld)4.8 %.[facility] Neutrophils Auto (Bld) [#/Vol]Ordered By: Shubham Bullockxa on 59-26-8395Gevljpzhzdo (Bld) [#/Vol]4.7 10*3/uL1.8-7.7FSuburban Community Hospital & Brentwood HospitalNeutrophils/100 WBC Auto (Bld)Ordered By: Shubham Olexa on 10-59-7627Garvqsrjcuw/100 WBC (Bld) 68.6 %.[facility] HospitalNo Panel InformationOrdered By: Shubham Rodrigues on 93-05-3925Rdfefcfig GFR (CKD-EPI)> 60.0 mL/MinOhiohealth Mansfield HospitalPharmacy Creatinine Clearance (ChemN/AFSuburban Community Hospital & Brentwood HospitalNucleated erythrocytes [Presence] in Blood by Automated countOrdered By: Shubham Rodrigues on 40-37-6757Iqtqnjodz RBC Auto Ql (Bld)0.1 /100{WBC}0-0.5FSuburban Community Hospital & Brentwood HospitalPlatelet mean volume Auto (Bld) [Entitic vol]Ordered By: Shubham Rodrigues on 97-66-4452Ctbzpwmh mean volume (Bld) [Entitic vol]7.2 fL6.3-10.7 [facility] HospitalPlatelets Auto (Bld) [#/Vol]Ordered By: Shubham Rodrigues on 89-94-3521Rvulculpy (Bld) [#/Vol]334 10*3/cJ685-166UcgvrnllzOhiohealth Mansfield HospitalPotassium [Moles/volume] in Serum or PlasmaOrdered By: Shubham Rodrigues on 56-20-2831Fbxcmbhbp [Moles/Vol]4.2 mmol/L3.5-5.1FSuburban Community Hospital & Brentwood HospitalProtein [Mass/volume] in Serum or PlasmaOrdered By: Shubham Rodrigues on 05-67-0780Nxpzvkw [Mass/Vol]6.7 g/dL6.4-8.9[facility] RBC Auto (Bld) [#/Vol]Ordered By: Shubham Rodrigues on 26-29-5295TYB (Bld) [#/Vol] 4.50 10*6/uL3.60-5.00N[facility]wide Children's Hospitalerum or plasma albumin/globulin mass ratioOrdered By: Shubham Rodrigues on 12-25-2022 Albumin/Globulin [Mass ratio]1.4 {ratio}[facility] Children's Hospitalerum or plasma anion gap determinationOrdered By: Shubham Rodrigues on 67-85-6208Nvhsd gap [Moles/Vol]10.0 mmol/L6.0-15.0N[facility] Children's Hospitalodium [Moles/volume] in Serum or PlasmaOrdered By: Shubham Rodrigues on 78-60-3886Hwxhds [Moles/Vol]140 mmol/H781-616BzpmpnlwaOhiohealth Mansfield HospitalUrea nitrogen [Mass/volume] in Serum or PlasmaOrdered By: Shubham Rodrigues on 44-79-6527Dnjy nitrogen [Mass/Vol]18 mg/dL7-25Ohio[facility] HospitalWBC Auto (Bld) [#/Vol]Ordered By: Shubham Ravi on 13-89-2618AFX (Bld) [#/Vol]6.8 10*3/uL 3.8-11.6FSuburban Community Hospital & Brentwood HospitalPTH INTACTon 16-08-7806WZZ, Jglelo40 pg/zGFvvigz20-69Cyr [facility] HospitalComment on above:Performed By: #### PTHINT ####[facility] [address] [address]Dr. Mikaela ChangBUNon 60-06-7818Myrn nitrogen [Mass/Vol]12.0 mg/dLNormal7.0-18.0The [facility] HospitalComment on above:Performed By: #### CA, K, CL, BUN, URIC, CO2, CREA, NA ####[facility] Wowuv[address] [place], [place] [address]Dr. Yolettetaiwo CaldwellCALCIUMon 19-71-4610Lknztkd [Mass/Vol]9.0 mg/dLNormal 8.5-10.1The [facility] HospitalComment on above:Performed By: #### CA, K, CL, BUN, URIC, CO2, CREA, NA ####[facility] Cysnzxax[address] [place], [place] [address]Dr. Mikaela ChangCHLORIDEon 42-08-4800Mbrkatrs [Moles/Vol]107 mmol/PHlbqkf93-566Gro [facility] HospitalComment on above:Performed By: #### CA, K, CL, BUN, URIC, CO2, CREA, NA ####[facility] Bhrh[address] [place], [place] [address]Dr. Mikaela CggmuZC4eq 46-13-1692OZ2 [Moles/Vol]29.7 mmol/FEtwjkm34.0-32.0The [facility] Centerment on above:Performed By: #### CA, K, CL, BUN, URIC, CO2, CREA, NA ####[facility] Hqiisyib[address] [place], [place] [address]Dr. Yilan Caldwell CREATININEon 51-88-0561Vaeowktoqt [Mass/Vol]0.85 mg/dLNormal0.55-1.02The [facility] HospitalComment on above:Performed By: #### CA, K, CL, BUN, URIC, CO2, CREA, NA ####[facility] [address] [address]Dr. Mikaela ChangEGFR-AF MALAWIAN>60Normal>=60The [facility] HospitalComment on above:Performed By: #### CA, K, CL, BUN, URIC, CO2, CREA, NA ####[facility] [address] [place] [address]Dr. Mikaela ChangEGFR- NON AF MALAWIAN>60Normal>=60The [facility] HospitalComment on above:Performed By: #### CA, K, CL, BUN, URIC, CO2, CREA, NA ####[facility] [address] [place] [address]Dr. Mikaela ChangNAon 26-85-0677Wezugj [Moles/Vol]142 mmol/TVyfckc480-187Sts [facility] HospitalComment on above: Performed By: #### CA, K, CL, BUN, URIC, CO2, CREA, NA ####[facility] [address] [place], [place] [address]Dr. Mikaela JaviPOTASSIUMon 91-34-6347Dkpvbscdt [Moles/Vol]3.9 mmol/LNormal3.5-5.1The [facility] Comment on above:Performed By: #### CA, K, CL, BUN, URIC, CO2, CREA, NA ####[facility] [address] [place], [place] [address]Dr. Yolettetaiwo JaviURIC ACID SERUMon 63-32-3626Eqkid [Mass/Vol]3.8 mg/dLNormal2.6-6.0The [facility] HospitalComment on above:Performed By: #### CA, K, CL, BUN, URIC, CO2, CREA, NA ####[facility] [address] [place], [place] [address]Dr. Mikaela JaviXR KUB 1 VIEWon 68-46-2055PH KUB 1 VIEWEXAMINATION: XR KUB 1 VIEW HISTORY: Kidney stone [...] 1. Bilateral nephrolithiasis. Electronically authenticated by: ZENAIDA TALBOT Date: 2022-07-18 09:03[facility] THYROIDon 15-22-0795ME THYROIDEXAMINATION: US THYROID HISTORY: Non-toxic uninodular goiter COMPARISON: [...] IMPRESSION: Bilateral stable thyroid nodules TI-RADS: The [employer] TI-RADS committee's white paper recommendations for thyroid lesions classified as TR4 (moderately suspicious) are listed below: > 1.0 cm. Follow-up ultrasound in 1, 2, 3, and 5 years. > 1.5 cm. FNA. J. Am Ellen Radiol 2017;14:587-595. Electronically authenticated by: KODY GARRISON Date: 2022-05-15 11:41[facility] HospitalMG MAMM SCREEN 3D ANN-MARIE CADon 83-25-5846MD MAMM SCREEN 3D ANN-MARIE CAD Patient: KAROL PLASCENCIA Exam Date: 03/27/2022 : 1970 Gender:F Ordering : DR SUE ERWIN . Admission #: [id number] Family : Order #: [id number] CLICK HERE TO VIEW EXAM RADIOLOGY REPORT [...] prostate cancer at age 67. LOCATION: [facility] BREAST COMPOSITION: Heterogeneously dense,which may obscure [...] LUMP SHOULD BE BIOPSIED. Dictated by: Zenaida Talbot M.D. on 03/27/2022 at 15:30 Approved by: Zenaida Talbot M.D. on 03/27/2022 at 15:33[facility] HospitalAmmonium urate crystals detection in stone by infrared spectroscopy Ordered By: Jordi Chand on 32-39-2762Cnuftlvw urate crystals Infrared spectroscopy Ql (Stone)N/[facility] CenterCalcium bilirubinate measurementOrdered By: Jordi Chand on 47-14-6093Qiyuilo bilirubinate (Stone) [Mass fraction]N/[facility] CenterCalcium carbonate measurement Ordered By: Jordi Chand on 95-65-1781Jwmqdjp carbonate (Stone) [Mass fraction] N/[facility]opedic CenterCalcium hydrogen phosphate dihydrate/Total in StoneOrdered By: Jordi Chand on 89-17-0793Ehqmaez hydrogen phosphate dihydrate (Stone) [Mass fraction]N/[facility]opedic CenterCalcium oxalate dihydrate crystals detection in stone by infrared spectroscopyOrdered By: Jordi Chand on 29-17-2005Kfwuhrn oxalate dihydrate crystals Infrared spectroscopy Ql (Stone)20 %.[facility] HospitalCalcium oxalate monohydrate/Total in StoneOrdered By: Jordi Chand on 60-31-8288Aekvcks oxalate monohydrate (Stone) [Mass fraction]80 %.[facility] HospitalCalcium phosphate measurementOrdered By: Jordi Chand on 36-77-3471Jisbjao phosphate (Stone) [Mass fraction]N/[facility] CenterCalculus analysis interpretation in stoneOrdered By: Jordi Chand on 43-42-4458Gxhlrnsu analysis [Interp]N/[facility] CenterCalculus analysis [Interp]See comment.[facility] HospitalComment on above:Calculus received in liquid. Wet calculi must be dried before analysis, which delays reporting of results. Leaving calculi in liquid (such as water, saline, blood, urine) may lead to changes in composition.Physician questions regarding Calculi Analysis contact [facility] at: [phone].Calculi report will follow via computer, mail or dressed poultry grader delivery.Calculus analysis with calculus photography interpretation in stone Ordered By: Jordi Chand on 31-15-3186Fbwzdmzs analysis with calculus photography [Interp]See comment.[facility] HospitalComment on above:Photograph will follow under a separate coverCellular material measurement in stone by estimated (mass/mass)Ordered By: Jordi Chand on 97-60-1075Peaefrds material Est (Stone) [Mass/Mass]N/[facility] Cholesterol/Total in StoneOrdered By: Jordi Chand on 29-07-7307Tqgnwpaevxe (Stone) [Mass fraction]N/[facility] CenterComposition of stone Ordered By: Jordi Chand on 96-65-6470Uexpvukurpw Nom (Stone)See comment. [facility] HospitalComment on above:Percentage (Represents the % composition)Cystine measurementOrdered By: Jordi Chand on 42-11-7911Ickhkcg (Unsp spec) [Moles/Vol]N/[facility] CenterDetermination of color of calculusOrdered By: Jordi Chand on 97-25-1363Ymfkr (Stone)Brown. [facility] HospitalHydroxyapatite [Energy Difference] in 24 hour UrineOrdered By: Jordi Chand on 87-22-8522Tbjrxnzrpgbwuu (24H U) [Energy diff] [facility] HospitalMeasurement of proportion of calculus composed of dried blood (mass/mass)Ordered By: Jordi Chand on 12-21-2021 Blood.dried (Stone) [Mass fraction][facility] Newberyite/Total in StoneOrdered By: Jordi Chand on 98-83-6156Nxrxpszcmn (Stone) [Mass fraction][facility] HospitalNo Panel Information Ordered By: Jordi Chand on 49-92-1969Ctsrc 2,8 DihydroxyadenineN/[facility] Centerton Analysis DisclaimerSee comment.[facility] HospitalComment on above:This test was developed and its performance characteristics determined by [employer]. It has not been cleared or approved by the Food and Drug Administration. Performed at: [facility] Stone Analysis [address] [place] [address] [address] [place], [place] [id number] Test Examiner: Jayson Santos PhD, Phone: [phone] BilirubinBedford Regional Medical Center/[facility] Centertone Calcium PalmitateN/[facility] Centertone Calcium StearateN/[facility] Centertone Carbonate ApatiteN/[facility] Centertone Drug or MetaboliteN/[facility] Centertone Other ConstituentN/[facility] Centertone XanthineN/[facility] Centerize [Entitic volume] of StoneOrdered By: Jordi Chand on 34-60-9409Smqc (Stone) [Entitic vol]5x3 mm. [facility] HospitalComment on above:Multiple pieces received. Dimensions of the largest piece reported.Sodium urate crystals detection in stone by infrared spectroscopy Ordered By: Jordi Chand on 85-53-5471Rstlug urate crystals Infrared spectroscopy Ql (Stone)[facility] Hospitalpecimen source subject [Type]Ordered By: Jordi Chand on 67-47-4210Wonptury source subject Nom See comment.[facility] HospitalComment on above:Left Ureter Triamterene measurement in calculusOrdered By: Jordi Chand on 12-21-2021 Triamterene (Stone) [Mass fraction][facility] HospitalTriple phosphate/Total in StoneOrdered By: Jordi Chand on 31-87-7044Rjprip phosphate (Stone) [Mass fraction]N/[facility] CenterUric acid dihydrate crystals detection in stone by infrared spectroscopyOrdered By: Jordigarrett Chand on 42-07-9721Fgdiq dihydrate crystals Infrared spectroscopy Ql (Stone)N/[facility] CenterCOVID-19 Positive/NegativeOrdered By: Jordi Chand on 42-04-7450RGYP-CoV-2 (COVID-19) N gene ISABELLA+probe Ql (Resp)NegativeNegative [facility] HospitalComment on above:Testing for SARS-CoV-2 by RT-PCR This test was developed and its performance characteristics determined by [employer], [employer] ([employer]) and validated at the [facility]. This test has not been FDA [...] unless the authorization is terminated or revoked sooner.Activated partial thromboplastin time (aPTT) in platelet poor plasma by coagulation aOrdered By: Jordi Chand on 57-03-0638nZRA Coag (PPP) [Time]40.1 s25.1-36.5FSuburban Community Hospital & Brentwood HospitalBasophils Auto (Bld) [#/Vol]Ordered By: Jordi Chand on 05-57-9298Weecvzncs (Bld) [#/Vol]0.1 10*3/uL 0.0-0.2FSuburban Community Hospital & Brentwood HospitalBasophils/100 WBC Auto (Bld)Ordered By: Jordi Chand on 53-14-9955Nmlytfnxr/100 WBC (Bld)0.8 %.[facility] HospitalBlchildren's [place] hemoglobin measurement (mass/volume)Ordered By: Jordi Chand on 21-65-8165Cbqsqnbonf (Bld) [Mass/Vol]12.8 g/dL11.8-15.4FSuburban Community Hospital & Brentwood HospitalBlchildren's [place] leukocytes automated count (number/volume)Ordered By: Jordi Chand on 54-85-7284GTA (Bld) [#/Vol]6.9 10*3/uL4.5-11.0[facility] HospitalCreatinine and Glomerular filtration rate.predicted panel (S/P/Bld)Ordered By: Jordi Chand on 76-82-9736Dmonayfilq [Mass/Vol]0.76 mg/dL 0.44-1.03[facility] HospitalEosinophils Auto (Bld) [#/Vol]Ordered By: Jordi Chand on 64-40-2712Circiyueexu (Bld) [#/Vol]0.3 10*3/uL0.0-0.45 [facility] HospitalEosinophils/100 WBC Auto (Bld)Ordered By: Jordi Chand on 79-59-0911Hhetlmwmven/100 WBC (Bld)4.9 %.[facility] HospitalErythrocyte distribution width Auto (RBC) [Ratio]Ordered By: Jordi Chand on 99-25-6973Opkmxxiehac distribution width (RBC) [Ratio]14.0 % 11.9-15.3FSuburban Community Hospital & Brentwood HospitalEstimated glomerular filtration rate (GFR) non- AmericanOrdered By: Jordi Chand on 16-89-4809EJE/1.73 sq M.predicted among non-blacks MDRD (S/P/Bld) [Vol rate/Area]> 60 mL/MinOhiohealth Mansfield HospitalHematocrit Auto (Bld) [Volume fraction]Ordered By: Jordi Chand on 38-43-0363Tasfpdppxy (Bld) [Volume fraction]39.2 %34.0-46.4 [facility] HospitalLaboratory - CoagulationOrdered By: Jrodi Chand on 68-62-8720TI Coag (PPP) [Time]11.9 s9.0-12.9[facility] HospitalLaboratory - Hematology and Cell countsOrdered By: Jordi Chand on 40-68-5252Zjniiukbk RBC/100 WBC (Bld) [Ratio]0.1 %0-0.5FSuburban Community Hospital & Brentwood HospitalLymphocytes Auto (Bld) [#/Vol]Ordered By: Jordi Chand on 32-35-1540Aueoomllllv (Bld) [#/Vol]2.0 10*3/uL1.00-4.8[facility] HospitalLymphocytes/100 WBC Auto (Bld)Ordered By: Jordi Chand on 12-13-2021 Lymphocytes/100 WBC (Bld)28.9 %.[facility] Auto (RBC) [Entitic mass]Ordered By: Jordi Chand on 70-08-5653HPS (RBC) [Entitic mass]28.8 pg24.7-34.3FSuburban Community Hospital & Brentwood HospitalMCHC Auto (RBC) [Mass/Vol]Ordered By: Jordi Chand on 58-90-2050INIG (RBC) [Mass/Vol]32.6 g/dL32.0-35.0[facility] HospitalMCV Auto (RBC) [Entitic vol]Ordered By: Jordi Chand on 22-64-5936MEC (RBC) [Entitic vol]88.1 wF05-780DwtkkvdkuOhiohealth Mansfield Hospital Monocytes Auto (Bld) [#/Vol]Ordered By: Jordi Chand on 99-87-1809Goavwuewa (Bld) [#/Vol]0.4 10*3/uL0.0-0.8[facility] HospitalMonocytes/100 WBC Auto (Bld)Ordered By: Jordi Chand on 43-50-1867Endsrdtzw/100 WBC (Bld)6.5 % .[facility] HospitalNeutrophils Auto (Bld) [#/Vol]Ordered By: Jordi Chand on 09-86-1132Wdztcyhdjuh (Bld) [#/Vol]4.1 10*3/uL1.8-7.7FSuburban Community Hospital & Brentwood HospitalNeutrophils/100 WBC Auto (Bld)Ordered By: Jordi Chand on 25-40-5286Bkawvjewgie/100 WBC (Bld)58.9 %.[facility] HospitalNo Panel InformationOrdered By: Jordi Chand on 82-45-6337Muvobkuot GFR ()> 60 mL/MinOhiohealth Mansfield HospitalComment on above:GFR estimated reference range: According to KDOQI guidelines, <60 ml/min/1.73m2 is sufficient todiagnose a patient with chronic kidney disease.Pharmacy Creatinine Clearance (ChemN/AFSuburban Community Hospital & Brentwood HospitalPlatelet mean volume Auto (Bld) [Entitic vol]Ordered By: Jordi Chand on 65-98-6828Jzyygcmp mean volume (Bld) [Entitic vol]7.5 fL6.3-10.7FSuburban Community Hospital & Brentwood HospitalPlatelet poor plasma international normalized ratio (INR) by coagulation assay (relatOrdered By: Jordi Chand on 90-88-1229API Coag (PPP) [Relative time]1.1 {INR}[facility] HospitalComment on above:INR Therapeutic Range A) Pre- and Peroperative OAT started two weeks before surgery. NOT HIP SURGERY: 1.5 - 2.5 HIP SURGERY: 2 - 3 B) Primary and secondary prevention of venous THROMBOSIS: 2 - 3 C) Active venous thrombosis, pulmonary embolism and prevention of recurrent venous thrombosis: 2 - 3 D) Prevention of arterial thromboembolism including patients with mechanical heart valves: 3 - 4.5Platelets Auto (Bld) [#/Vol]Ordered By: Jordi Chand on 52-52-5492Qnjzqqewz (Bld) [#/Vol]345 10*3/uL 150-450Ohio[facility] Mansfield HospitalRBC Auto (Bld) [#/Vol]Ordered By: Jordi Chand on 16-74-5416QKY (Bld) [#/Vol]4.45 10*6/uL3.60-5.00[facility]'s Hospitalerum or plasma calcium measurement (mass/volume)Ordered By: Jordi Chand on 05-79-7245Aietheg [Mass/Vol]9.2 mg/dL8.2-10.2FOhio State East Hospitalerum or plasma chloride measurement (moles/volume) Ordered By: Jordi Chand on 30-28-3183Zaqdelyx [Moles/Vol]102 mmol/L95-114 [facility] CenterSerum or plasma glucose measurement (mass/volume)Ordered By: Jordi Chand on 91-47-7494Xyynldc [Mass/Vol]90 mg/dL 70-100Ohio[facility] HospitalComment on above:ADA recommended reference range Random Glucose Reference Range is dependent on time and content of last meal. Glucose of more than 200 mg/dL in a nonstressed, ambulatory subject supports the diagnosis of Diabetes Mellitus.Serum or plasma potassium measurement (moles/volume)Ordered By: Jordi Chand on 84-05-7527Rmaigbuxo [Moles/Vol]3.6 mmol/L3.5-5.1FOhio State East Hospitalerum or plasma sodium measurement (moles/volume)Ordered By: Jordi Chand on 45-45-7435Gvpewa [Moles/Vol]139 mmol/M478-685VatwdssxtNationwide Children's Hospitalerum or plasma total carbon dioxide measurement (moles/volume)Ordered By: Jordi Chand on 66-00-3920NO1 [Moles/Vol]27.4 mmol/L22.0-30.0N[facility] Children's Hospitalerum or plasma urea nitrogen measurement (mass/volume)Ordered By: Jordi Chand on 12-13-2021 Urea nitrogen [Mass/Vol]13 mg/dL9-23[facility] HospitalMRI KNEE RT WO CONon 87-72-2168RPL KNEE RT WO CONEXAMINATION: MRI KNEE RT WO CON HISTORY: Derangement [...] of the patella. Electronically authenticated by: ZENAIDA TALBOT Date: 2021-12-12 17:04[facility] HospitalXR KUB 1 VIEWon 27-74-2647MB KUB 1 VIEWEXAMINATION: XR KUB 1 VIEW HISTORY: Kidney stone [...] proximal ureteral stone. Electronically authenticated by: ZENAIDA TALBOT Date: 2021-12-10 07:56[facility] HospitalCOVID-19 SOFIAOrdered By: Jordi Chand on 11-27-2021 SARS-CoV+SARS-CoV-2 (COVID-19) Ag IA.rapid Ql (Resp)NegativeNegativeOhiohealth Mansfield HospitalComment on above:This is a duplicate Mony SARS Antigen (MILES) result to be used for statistical tracking purpose only.No Panel InformationOrdered By: Jordi Chand on 34-90-3378CDQJ Antigen (LFIA)[facility] HospitalXR KUB 1 VIEWon 73-73-8513SB KUB 1 VIEWEXAMINATION: XR KUB 1 VIEW HISTORY: Kidney stone [...] by bowel content. Electronically authenticated by: ZENAIDA TALBOT Date: 2021-11-20 18:35[facility] HospitalCULTURE URINEon 21-31-9055SPKDAEU URINEIsolate 1 Escherichia coli 75,000 cfu/mL of ORGANISM 1 Escherichia coli ANTIBIOTIC M.I.C RX STATUS Ampicillin 4 S F Ampicillin/Sulbactam <=2 S F Piperacillin/Tazobactam <=4 S F Cefazolin <=4 S F Ceftazidime <=1 S F Ceftriaxone <=1 S F Ertapenem <=0.5 S F Imipenem <=0.25 S F Amikacin <=2 S F Gentamicin <=1 S F Tobramycin <=1 S F Ciprofloxacin <=0.25 S F Levofloxacin <=0.12 S F Nitrofurantoin <=16 S F Trimethoprim/Sulfamethoxazole <=20 S FNormalThe [facility] HospitalComment on above:Performed By: #### CVDTBH #### [facility] [address] [place] [address] Dr. Mikaela Jones EDGARDO 3-6on 57-31-5634ZY [Catalytic activity/Vol]54 U/L Hyervt52-402Gkp [facility] HospitalComment on above:Performed By: #### CVDTBH #### [facility] [address] [place] [address] Dr. Mikaela Perkins.MB [Mass/Vol]2.05 ng/mLNormal<=3.60[facility] Comment on above:Performed By: #### CVDTBH #### [facility] [address] [place] [address] Dr. Mikaela AlarconTROP6.5 pg/mLNormal4.0-51.3TGalion Community Hospital on above:Result Comment: CUT-OFF POINTS HAVE BEEN ESTABLISHED BASED ON THE FOURTH UNIVERSAL DEFINITIONS OF MYOCARDIAL INFARCTION. THE UPPER REFERENCE LIMIT (URL) OF TROPONIN, DEFINED THE 99TH PERCENTILE OF cTnI DISTRIBUTION IN A REFERENCE POPULATION, HAS BEEN CONFIRMED THE DECISION THRESHOLD FOR AK DIAGNOSIS.Performed By: #### CVDTBH #### [facility] [address] [place] [address] Dr. Mikaela Perkins [Catalytic activity/Vol]63 U/VRulags41-768IakOhio Valley Hospital on above:Performed By: #### CMREP #### [facility] [address] [place] [address] Dr. Mikaela Perkins.MB [Mass/Vol]2.28 ng/mLNormal<=3.60[facility] Comment on above:Performed By: #### CMREP #### [facility] [address] [place] [address] Dr. Mikaela AlanisOP5.1 pg/mLNormal4.0-51.3TGalion Community Hospital on above:Result Comment: CUT-OFF POINTS HAVE BEEN ESTABLISHED BASED ON THE FOURTH UNIVERSAL DEFINITIONS OF MYOCARDIAL INFARCTION. THE UPPER REFERENCE LIMIT (URL) OF TROPONIN, DEFINED THE 99TH PERCENTILE OF cTnI DISTRIBUTION IN A REFERENCE POPULATION, HAS BEEN CONFIRMED THE DECISION THRESHOLD FOR AK DIAGNOSIS.Performed By: #### CMREP #### [facility] [address] [place] [address] Dr. Mikaela Jones EDGARDO ADMITon 59-24-6220LV [Catalytic activity/Vol]77 U/L Ilbxya12-236XihOhio Valley Hospital on above:Performed By: #### CMADM, LIPA, CMP #### [facility] [address] [place] [address] Dr. Mikaela Perkins.MB [Mass/Vol]2.40 ng/mLNormal<=3.60[facility] Comment on above:Performed By: #### CMADM, LIPA, CMP #### [facility] [address] [place] [address] Dr. Mikaela CaldwellHSTROP5.8 pg/mLNormal4.0-51.3The [facility] HospitalComment on above:Result Comment: CUT-OFF POINTS HAVE BEEN ESTABLISHED BASED ON THE FOURTH UNIVERSAL DEFINITIONS OF MYOCARDIAL INFARCTION. THE UPPER REFERENCE LIMIT (URL) OF TROPONIN, DEFINED THE 99TH PERCENTILE OF cTnI DISTRIBUTION IN A REFERENCE POPULATION, HAS BEEN CONFIRMED THE DECISION THRESHOLD FOR AK DIAGNOSIS.Performed By: #### RONEN DORMAN, CMP #### [facility] [address] [place] [address] Dr. Mikaela CaldwellMYO29 ng/mLNormal9-82The [facility] HospitalComment on above: Performed By: #### RONEN DORMAN, CMP #### [facility] [address] [place] [address] Dr. Mikaela Torres AUTO DIFFon 77-85-7606TJVQ #0.1 103/ulNormal0.0-0.1The [facility] HospitalComment on above:Performed By: #### CBC #### [facility] [address] [place] [address] Dr. Mikaela CaldwellBasophils/100 WBC (Bld)0.5 %Normal0.2-2.0[facility] Comment on above:Performed By: #### CBC #### [facility] [address] [place] [address] Dr. Mikaela Hobson #0.3 103/ulNormal0.0-0.7The [facility] HospitalComment on above: Performed By: #### CBC #### [facility] [address] [place] [address] Dr. Mikaela Nayakosinophils/100 WBC (Bld)2.1 %Normal0.9-7.0The [facility] Comment on above:Performed By: #### CBC #### [facility] [address] [place] [address] Dr. Mikaela Nayakrythrocyte distribution width (RBC) [Ratio]13.2 %Amwuau73.0-15.0 The [facility] HospitalComment on above:Performed By: #### CBC #### [facility] [address] [address] [address] Mikaela CaldwellHematocrit (Bld) [Volume fraction]40.9 %Besyvy02.0-48.0The [facility] HospitalComment on above:Performed By: #### CBC #### [facility] [address] [place] [address] Dr. Mikaela CaldwellHemoglobin (Bld) [Mass/Vol]13.1 g/xFLzquda84.0-16.0The [facility] HospitalComment on above:Performed By: #### CBC #### [facility] [address] [place] [address] Dr. Mikaela Vergara #0.07 10e3/ulCritically high0.00-0.03The [facility] Comment on above:Performed By: #### CBC #### [facility] [address] [place] [address] Dr. Mikaela Vergara %0.5 %Normal0.0-0.5The [facility] HospitalComment on above: Performed By: #### CBC #### [facility] [address] [place] [address] Dr. Mikaela Chen #1.8 103/ulNormal1.2-3.8The [facility] HospitalComment on above:Performed By: #### CBC #### [facility] [address] [place] [address] Dr. Mikaela Rodriguezhocytes/100 WBC (Bld)12.5 %Critically low20.5-60.0The [facility] HospitalComment on above:Performed By: #### CBC #### [facility] [address] [place] [address] Dr. Mikaela AdrianUAL DIFF REQNONormalThe [facility] HospitalComment on above: Performed By: #### CBC #### [facility] [address] [place] [address] Dr. Mikaela Conte (RBC) [Entitic mass]29.2 chSgajgd09.7-34.0The [facility] HospitalComment on above:Performed By: #### CBC #### [facility] [address] [address] [address] Mikaela SpencerHC (RBC) [Mass/Vol]32.0 g/xEWednci95.9-35.2The [facility] HospitalComment on above:Performed By: #### CBC #### [facility] [address] [place] [address] Dr. Mikaela SpencerV (RBC) [Entitic vol]91.1 fNVyrzno49.0-99.0The [facility] HospitalComment on above:Performed By: #### CBC #### [facility] [address] [place] [address] Dr. Mikaela Dai #0.7 103/ulNormal0.3-0.8The [facility] HospitalComment on above:Performed By: #### CBC #### [facility] [address] [place] [address] Dr. Mikaela Weissocytes/100 WBC (Bld)5.1 %Normal1.7-12.0The [facility] Comment on above:Performed By: #### CBC #### [facility] [address] [place] [address] Dr. Mikaela Magaña #11.1 103/ulCritically high1.4-6.5The [facility] Comment on above:Performed By: #### CBC #### [facility] [address] [place] [address] Dr. Mikaela Guidryutrophils/100 WBC (Bld)79.3 %Critically high43.0-75.0The [facility] HospitalComment on above:Performed By: #### CBC #### [facility] [address] [place] [address] Dr. Mikaela Bailon mean volume (Bld) [Entitic vol]9.2 fLCritically low 9.5-13.5The [facility] HospitalComment on above:Performed By: #### CBC #### [facility] [address] [place] [address] Dr. Mikaela CaldwellPLT420 103/anTwgbjx638-527Wsg [facility] HospitalComment on above: Performed By: #### CBC #### [facility] [address] [address] [address] Mikaela CaldwellRBC4.49 106/ulNormal4.20-5.40The [facility] HospitalComment on above:Performed By: #### CBC #### [facility] [address] [place], [place] [address] Dr. Mikaela CaldwellWBC14.0 103/ulCritically high4.0-11.0The [facility] HospitalComment on above:Performed By: #### CBC #### [facility] [address] [address] [address] Mikaela CaldwellCT ABD/PELVIS WO CONon [id number] ABD/PELVIS WO CONEXAM: CT ABD/PELVIS WO CON 11/13/2021 1:52 AM [...] Electronically authenticated by: GEORGE LLANES Date: 2021-11-13 02:[address] [place], [place] [address]Covid-19 PCR (CVDTBH)on 14-25-8072IODF-CoV-2 (COVID-19) RNA ISABELLA+probe Ql (Unsp spec)Not detectedNormalNOT DETECTEDOhiohealth Berger Hospital Comment on above:Result Comment: When diagnostic testing is negative, the [...] for this test is supported by the [place] of Health and Human Service's declaration that circumstances exist to justify the emergency use of in vitro diagnostics for the detection and/or diagnosis of the virus that causes COVID-19. This EUA will remain in effect for the duration of the COVID-19 declaration justifying emergency of IVDs, unless it is terminated or revoked by the FDA (after which the test may no longer be used).Performed By: #### CVDTBH #### [facility] [address] [place] [address] Dr. Mikaela Hartley URINE PROFILEon 61-34-8103Xeudqlfpf Ql (U)NegativeNormal NEGATIVEOhiohealth Berger HospitalComment on above:Performed By: #### ALISON UMICRO #### [facility] [address] [place] [address] Dr. Mikaela Feliz (U)CLEARNormalCLEAROhiohealth Berger HospitalComment on above: Performed By: #### ALISON UMICRO #### [facility] [address] [place] [address] Dr. Mikaela Owens (U)LT. YELLOWNormalYELLOWOhiohealth Berger HospitalComment on above:Performed By: #### ALISON UMICRO #### [facility] [address] [place] [address] Dr. Mikaela Serrano micrscopic examination will be performed if indicated. NormalThe [facility] HospitalComment on above:Performed By: #### ALISON UMICRO #### [facility] [address] [address] [address] Mikaela CaldwellGlucose Ql (U)NegativeNormalNEGATIVEOhiohealth Berger HospitalComment on above:Performed By: #### ALISON UMICRO #### [facility] [address] [address] [address] Mikaela CaldwellHemoglobin Ql (U)TRACE-INTACTAbnormalNEGATIVEThe [facility] HospitalComment on above:Performed By: #### ALISON UMICRO #### [facility] [address] [address] [address] Mikaela CaldwellKetones Ql (U)NegativeNormalNEGATIVEOhiohealth Berger HospitalComment on above:Performed By: #### ALISON UMICRO #### [facility] [address] [place] [address] Dr. Mikaela CaldwellLEUKOCYTESTRACEAbnormalNEGATIVEThe [facility] HospitalComment on above:Performed By: #### ALISON UMICRO #### [facility] [address] [place] [address] Dr. Mikaela CaldwellNitrite Ql (U)PositiveAbnormalNEGATIVEOhiohealth Berger Hospital Comment on above:Performed By: #### ALISON UMICRO #### [facility] [address] [place] [address] Dr. Mikaela CaldwellpH (U)6.5 [pH]Normal5-9The [facility] HospitalComment on above: Performed By: #### ALISON UMICRO #### [facility] [address] [place] [address] Dr. Mikaela CaldwellSPEC GRAVITY1.920Ltlqiu1.005-<=1.025The [facility] HospitalComment on above:Performed By: #### ALISON UMICRO #### [facility] [address] [place] [address] Dr. Mikaela CaldwellUA PROTEINNegativeNormalNEGATIVE/ TRACEThe [facility] Comment on above:Performed By: #### ALISON UMICRO #### [facility] [address] [address] [address] Mikaela WAGNER INDINDICATEDNormalThe [facility] HospitalComment on above: Performed By: #### KENDELL ROSASRO #### [facility] [address] [address] [address] Mikaela CaldwellUrobilinogen Qn (U)0.2 {Lisa'U}/dLNormal0.2 - 1.0The [facility] HospitalComment on above:Performed By: #### KENDELL ROSASRO #### [facility] [address] [address] [address] Mikaela CaldwellLACTATE/LACTIC ACIDon 04-70-3726Rxjurlb [Moles/Vol]1.2 mmol/L Normal0.4-1.9The [facility] HospitalComment on above:Performed By: #### LACT ####[facility] [address] [address]Dr. Mikaela CaldwellLIPASEon 52-61-6897Qexrmr [Catalytic activity/Vol]97.0 U/LNormal 73.0-393.0The [facility] HospitalComment on above:Performed By: #### CMADM, LIPA, CMP #### [facility] [address] [address] [address] Mikaela Lazar 14(COMP METB)on 58-65-3619Stlrxfm [Mass/Vol]3.5 g/dLNormal 3.4-5.0The [facility] HospitalComment on above:Performed By: #### CMADM, LIPA, CMP #### [facility] [address] [place] [address] Dr. Mikaela CaldwellAlbumin/Globulin [Mass ratio]0.9 {ratio}NormalThe [facility] HospitalCompromedica [facility] on above:Performed By: #### CMADM, LIPA, CMP #### [facility] [address] [place] [address] Dr. Mikaela CaldwellALP [Catalytic activity/Vol]161 U/LCritically grmt18-730Kcw [facility] HospitalComment on above:Performed By: #### CMADM, LIPA, CMP #### [facility] [address] [address] [address] Mikaela PhillipsT [Catalytic activity/Vol]30 U/GUkcsyo23-29Qdy [facility] HospitalComment on above:Performed By: #### CMADM, LIPA, CMP #### [facility] [address] [address] [address] Mikaela Martinezon gap [Moles/Vol]10.4 mmol/LNormalOhiohealth Berger Hospital Comment on above:Performed By: #### CMADM, LIPA, CMP #### [facility] [address] [address] [address] Mikaela CaldwellAST [Catalytic activity/Vol]17 U/THoetan76-00Jpr [facility] HospitalComment on above:Performed By: #### CMADM, LIPA, CMP #### [facility] [address] [place] [address] Dr. Mikaela CaldwellBilirubin [Mass/Vol]0.3 mg/dLNormal0.2-1.0[facility] Comment on above:Performed By: #### CMADM, LIPA, CMP #### [facility] [address] [address] [address] Mikaela CaldwellCalcium [Mass/Vol]8.8 mg/dLNormal8.5-10.1[facility] Comment on above:Performed By: #### CMADM, LIPA, CMP #### [facility] [address] [address] [address] Mikaela CaldwellChloride [Moles/Vol]106 mmol/GUylphp34-536JofOhiohealth Berger Hospital Comment on above:Performed By: #### CMADM, LIPA, CMP #### [facility] [address] [address] [address] Mikaela CaldwellCO2 [Moles/Vol]30.1 mmol/LQddnrf03.0-32.0[facility] Comment on above:Performed By: #### CMADM, LIPA, CMP #### [facility] [address] [place] [address] Dr. Yilan ChangCreatinine [Mass/Vol]1.02 mg/dLNormal0.55-1.02[facility] HospitalComment on above:Performed By: #### CMADM, LIPA, CMP #### [facility] [address] [address] [address] Mikaela NayakGFR-AF MALAWIAN>60Normal>=60The [facility] HospitalComment on above:Performed By: #### CMADM, LIPA, CMP #### [facility] [address] [address] [address] Mikaela NayakGFR-NON AF AQOSNZFA26 mL/min/1.90m4Dtyzvlixxi low>=60The [facility] HospitalComment on above:Performed By: #### CMADM, LIPA, CMP #### [facility] [address] [place] [address] Dr. Mikaela CaldwellGlobulin (S) [Mass/Vol]4.0 g/dLNormalThe [facility] HospitalComment on above:Performed By: #### CMADM, LIPA, CMP #### [facility] [address] [address] [address] Mikaela CaldwellGlucose [Mass/Vol]113 mg/dLCritically fjpu16-803Vup [facility] HospitalComment on above:Performed By: #### CMADM, LIPA, CMP #### [facility] [address] [address] [address] Mikaela CaldwellPotassium [Moles/Vol]3.5 mmol/LNormal3.5-5.1The [facility] Comment on above:Performed By: #### CMADM, LIPA, CMP #### [facility] [address] [address] [address] Mikaela CaldwellProtein [Mass/Vol]7.5 g/dLNormal6.4-8.2The [facility] Comment on above:Performed By: #### CMADM, LIPA, CMP #### [facility] [address] [address] [address] Mikaela CaldwellSodium [Moles/Vol]143 mmol/XKlzbfe270-435Jkw [facility] Comment on above:Performed By: #### CMADM, LIPA, CMP #### [facility] [address] [address] [address] Mikaela Perez nitrogen [Mass/Vol]18.0 mg/dLNormal7.0-18.0[facility] on above:Performed By: #### CMADM, LIPA, CMP #### [facility] [address] [address] [address] Mikaela Perez nitrogen/Creatinine [Mass ratio]17.6 mg/mgNoMiami Valley HospitalCompromedica char[facility] on above:Performed By: #### CMADM, LIPA, CMP #### [facility] [address] [address] [address] Mikaela CUELLAR ONLYon 20-72-1300OMFDLOPUUYASCZthrkfvhAMGI SEEN [facility] on above:Performed By: #### ALISON UMICRO #### [facility] [address] [place] [address] Dr. Mikaela Roberson identified Cx Nom (U)INDICATEDOhioHealth Nelsonville Health Center on above:Performed By: #### ALISON UMICRO #### [facility] [address] [place] [address] Dr. Mikaela Simms SEENNormalNONJimy SEENOhio Valley Hospital on above:Performed By: #### ALISON UMICRO #### [facility] [address] [place] [address] Dr. Mikaela Rincon LM Nom (Urine sed)NONE SEENNormalNONE SEENOhio Valley Hospital on above:Performed By: #### ALISON UMICRO #### [facility] [address] [place] [address] Dr. Mikaela Nayakpithelial cells LM Ql (Urine sed)NONE SEENNormalNONE SEEN /RARE [facility] on above:Performed By: #### ERUR, UMICRO #### [facility] [address] [place] [address] Dr. Yilan ChangMUCOUSNONE SEENNormalNONE SEENOhiohealth Berger HospitalComment on above:Performed By: #### ERUR, UMICRO #### [facility] [address] [address] [address] Mikaela CaldwellPbvcdKYT9-5Yuhhlk0-6Aym [facility] HospitalComment on above:Performed By: #### ERUR, UMICRO #### [facility] [address] [place], [place] [address] Dr. Mikaela CaldwellWBC5-10AbnormalNONE SEENThe [facility] HospitalComment on above: Performed By: #### ERUR, UMICRO #### [facility] [address] [place], [place] [address] Dr. Mikaela CaldwellXR CHEST 2 Von 11-86-9132PT CHEST 2 VEXAM: XR CHEST 2 V 11/13/2021 1:52 AM EDT OH001 CLINICAL STATEMENT: Pain COMPARISON: 02/08/2020 TECHNIQUE: PA and lateral radiograph of the chest are submitted. FINDINGS: There is no acute airspace disease. The cardiac silhouette is normal. The costophrenic recesses are sharp. No pneumothorax. The bony elements are unremarkable. IMPRESSION: No acute cardiopulmonary process. Electronically authenticated by: GEORGE LLANES Date: 2021-11-13 02:46[facility] Vital Signs Date TimeVital SignValuePerforming XnrbsbkwmNfrlxgym33-64-7734 08:03-0400Blood Pressure LocationLeviInMage Systems [facility]-07-2024 08:03-0400Diastolic blood fnjyoaix61 mm[Hg]Jordi Spreetales [facility] [place] 040770-07-2024 08:03-0400Heart rate82 /minLeviInMage Systems [facility] [place] 040770-07-2024 08:03-0400Respiratory rate16 /minLeviInMage Systems [facility] [place] 040770-07-2024 08:03-0400Systolic blood dtdieacr655 mm[Hg]Jordi CHAND [facility]08-24-2023 09:45-0400Body ilihvm914.1 cmThomas Olexa Other [employer] Other 08-24-2023 09:45-0400Body mass index (BMI) [Ratio] 39.27 kg/h5Kgjdvl Olexa Other [employer] Other 08-24-2023 09:45-0400Body .05 kgThomas Olexa Other [employer] Other 03-27-2023 09:50-0400Blood Pressure LocationJordi CHAND [facility]03-27-2023 09:50-0400Diastolic blood gofbpewm18 mm[Hg]Jordi CHAND [facility]03-27-2023 09:50-0400Heart rate72 /minJordi MANNIE [facility]03-27-2023 09:50-0400Respiratory rate16 /minJordi MANINE [facility]03-27-2023 09:50-0400Systolic blood loejgqay131 mm[Hg]Jordi CHAND [facility]08-26-2022 17:00-0400Diastolic blood jdtjfgcy74 mm[Hg]MD Jordi Chand Work Phone: [facility]08-26-2022 17:00-0400 Heart rate79 /minMD Jordi Chand Work Phone: 1(769)[address]08-26-2022 17:00-0400 Respiratory rate16 /min Jordi Chand Work Phone: 1(885)[address]08-26-2022 17:00-0400 SaO2% (BldA) [Mass fraction]100 %MD Jordi Chand Work Phone: 1(071)[address]08-26-2022 17:00-0400 Systolic blood yrolkxev377 mm[Hg]MD Jordi Chand Work Phone: 1(554)[address] [place], [place] 0190208-26-2022 15:35-0400 Body itxrho068 mg Jordi Mannie Work Phone: 1(125)[address] [place], [place] 0190208-26-2022 14:57-0400 Body zokbxi801.1 cmMD Jordi Chand Work Phone: 1(886)[address] [place], [place] 0190208-26-2022 14:57-0400 Body mass index (BMI) [Ratio]38.5 kg/m2MD Jordi Chand Work Phone: 1(589)[address] [place], [place] 0190208-26-2022 14:57-0400 Body cvuxps075 kgMD Jordi Chand Work Phone: 1(069)[address] [place], [place] 0190208-26-2022 12:56-0400 Body awwqklkjhms66.4 [degF]MD Jordi Chand Work Phone: 1(882)[address]08-04-2022 14:51-0400 Diastolic blood aawsgydt83 mm[Hg]MD Jordi Chand Work Phone: 1(966)[address]08-04-2022 14:51-0400 Heart rate80 /minMD Jordi Chand Work Phone: 1(071)[address]08-04-2022 14:51-0400 Respiratory rate16 /minMD Jordi Chand Work Phone: 1(704)[address]08-04-2022 14:51-0400 SaO2% (BldA) [Mass fraction]98 %MD Jordi Chand Work Phone: [facility]08-04-2022 14:51-0400 Systolic blood lajjcjki554 mm[Hg]MD Jordi Chand Work Phone: [facility]08-04-2022 12:45-0400 Body urtvsi516.1 cm Jordi Mannie Work Phone: [facility]08-04-2022 12:45-0400 Body mass index (BMI) [Ratio]37.4 kg/m2MD Simsory Mannie Work Phone: [facility]08-04-2022 12:45-0400 Body pxkydt676.05 kgMD Jordi Chand Work Phone: [facility]08-04-2022 12:24-0400 Body mfcadwmqven43.9 [degF]MD Jordi Chand Work Phone: [facility] Encounters Encounter DateEncounter TypeCare ProviderFacilityStart: 39-17-6051pwaqyqwaxt Aria J GaleaFacility:EU [place]uskyStart: 01-04-2025 End: 55-68-2041kkwtrrlmaoCR KWABENA NKANSAH-AMANKRAFacility:FTMCStart: 12-07-2024 End: 22-20-9363oeljgfcukmDQQGJGU NKANSAH-AMANKRAFacility:FTMCStart: 12-06-2024 End: 55-85-8543onmuczmpskHJLRBEH NKANSAH-AMANKRAFacility:FTMCStart: 12-03-2024 End: 38-23-1152bnftgpildtXOJZAUZ NKANSAH-AMANKRAFacility:FTMCStart: 12-03-2024 End: 16-97-5399Tphkzin encounter procedureNANCY PATEL-AMANKRA [facility] [place] Start: 11-14-2024 End: 26-79-2131mexzrtftqcYcpkbv A [facility]ainMer[facility] Work Phone: Start: 11-14-2024 End: 90-14-6657Wqntwkfg ReferredMarla nena A Zain MD-LAB [facility] Start: 07-12-2024 End: 96-84-6403uonnkuifnrUOCMAG W HEDGEUniversity Hospitals Parma Medical Centerterrance [facility] HospitalStart: 07-12-2024 Encounter for gynecological examination (general) (routine) without abnormal findingsWEJUANPABLO ROBINUniversity Hospitals Parma Medical Centerterrance [facility] HospitalStart: 07-12-2024 End: 10-87-6609Ahfbhlv encounter procedureSue Erwin MD Work Phone: [facility] HospitalStart: 07-12-2024 End: 74-80-2304Qyqabgwzuq hospital visit by physicianSue Erwin MD Work Phone: [facility] LABComment on above:Women's annual routine gynecological examinationStart: 02-02-2024 End: 05-18-2567zbhydwtstdSjzheng P COOKFacility:EU [place]kyStart: 02-02-2024 End: 23-28-7064Wtugtop encounter procedureJordi CHAND [facility] [place] Start: 02-10-2023 End: 20-59-4705vvdynlihluArercm Olexa Other [employer] Other Start: 23-61-9559Rmzhpl follow up visit related to original pxThomas OlexaFPG [facility] OrthopedicsStart: 97-97-6094Xvwbuxewy encounterThomas OlexaFPG [place] OrthopedicsStart: 01-07-2023 End: 99-88-3222bttgowmdldPhsmjx Olexa Other [employer] Other Start: 53-80-1490Zlivkv follow up visit related to original pxThomas OlexaFPG [place] OrthopedicsStart: 12-31-2022 End: 28-59-3703vbswxhcdpiRkopog Olexa Other [employer] Other Start: 66-46-7041Znxvvzrvv encounterThomas OlexaFPG [place] OrthopedicsStart: 12-25-2022 End: 29-42-2915fhxyujlitvSB Sue Colvin Hoy Work Phone: [facility] Work Phone: Start: 12-25-2022 End: 74-83-6338Kprbmms encounter procedureMD Sue Hoy Work Phone: [facility] Bvh-Ewd-Fgnjcjzm Testing Work Phone: Start: 12-19-2022 End: 83-99-3333nkbqeeybfgEoacpu Olexa Other [employer] Other Start: 89-32-7213Ticpbv outpatient visit 25 minutes Shubham KobexaSARITHAG [facility]opedicsStart: 11-25-2022 End: 93-21-4044whdyaevmzaQyhvry Olexa Other [employer] [place] [employer] Other Start: 01-82-7561Uxdgpf outpatient new 45 minutes Shubham KobexaSARITHAG [facility]icsStart: 08-12-2022 End: 61-66-4730dntcheacidZE JORDI CHANDFacility:F1Xmgip: 07-22-2022 End: 19-09-3631Uomskbl encounter procedureJordi CHAND [facility] [place] Start: 07-18-2022 End: 51-77-4934dkyaszjetzKG JORDI CHANDFacility:O5Ccbrt: 05-15-2022 End: 30-35-2291trgoybicphTC HARVEY DUMONTSFacility:B5Qmfea: 03-27-2022 End: 91-83-7351adastanyoaTR SUE HOY .Facility:U8Akinz: 12-21-2021 End: 20-85-5036Ydkurafxg to same day surgery centerMD Jordi Chand Work Phone: [facility] CenterSur[facility] Center Main CampusStart: 12-19-2021 End: 12-83-7190Dumiamf encounter procedureMD Jordi Chand Work Phone: [facility]-Pre-Surgical Testing Start: 12-13-2021 End: 31-40-9462Gjymdsa encounter procedureMD Jordi Chand Work Phone: [facility] Start: 12-12-2021 End: 58-62-1165iwvgcasbhvSR SUE ERWIN .Facility:K2Zsqlk: 12-10-2021 End: 19-62-6157jdglcdgxkuZO JORDI Linda CHANDFacility:X9Fkjel: 11-29-2021 End: 77-83-4126Ibxgetynp to same day surgery centerMD Jordi Chand Work Phone: [facility] CenterSur[facility] Main CampusStart: 11-27-2021 End: 12-30-7749Xvuwagk encounter procedureMD Jordi Chand Work Phone: [facility] Testing Start: 11-21-2021 End: 65-11-2099Vesbmfb encounter procedureJordi CHAND [facility] Start: 11-20-2021 End: 52-28-8601xhyvnpkuqfLV JORDI CHANDFacility:Y2Hwiin: 11-13-2021 End: 05-07-3676lyyuljinmiRH SUE ERWIN .Facility:G5Odatr: 10-03-2021 End: 44-14-9908fzxqmoiqriZW SUE ERWIN .Facility:I5Yaizy: 03-05-2021 End: 74-98-1047Kfgczey encounter procedureSue Erwin MD Work Phone: mthz LaboratoryStart: 03-05-2021 End: 22-88-4751Noiofepdxo hospital visit by Adán Erwin MD Work Phone: mthz LaboratoryComment on above:Vaginal discharge; Women's annual routine gynecological examinationStart: 02-25-2019 End: 29-14-9072Flpnnxdxmm hospital visit by Adán [facility] Comment on above:Women's annual routine gynecological examination Procedures DateProcedureProcedure DetailPerforming ClinicianStart: 85-36-9719Ykknamudozo observation [Identifier] in Cervix by Cyto Alyssa Erwin MD Work Phone: Start: 50-21-3836BmnxtnkkgsFE Jordi Chand Work Phone: Start: 04-60-6905Jtnsrxfcag radiography of abdomenMD Jordi Chand Work Phone: Start: 04-15-8442Qytrndsnyz radiography of abdomenMD Jordi Chand Work Phone: Start: 10-35-4180Haiothyxjztsut shockwave lithotripsy of calculus of kidneyJordi CHAND Start: 40-06-2532Fububfyghmxbmh shockwave lithotripsy of calculus of kidneyMD Jordi Chand Work Phone: Start: 13-79-2591Vzrwnysfip radiography of abdomenMD Jordi Chand Work Phone: Start: 26-00-4158Jkwqkesxvls insertion of ureteric stentJordi CHAND Start: 68-14-5502Qdqpmyuyir, device (physical object) Jordi CHAND Start: 70-28-5130Bjtcoxeigwt observation [Identifier] in Cervix by Cyto Alyssa Erwin MD Work Phone: art: 95-74-6066AvcsozloghjGftuphu COOK Diagnostic endoscopyJordi CHAND Dilation and curettage of uterusJordi CHAND SARS Antigen (LFIA)MD Jordi Chand Work Phone: Plan of Treatment DateCare ActivityDetailAuthorStart: 18-72-5753Qgbzagnwn for malignant neoplasm of cervixCarilion Giles Memorial HospitalStart: 47-40-4992Juuchmgo identified in Urine by CultureUrine [facility] - Cantontart: 33-80-0173Whfut cultureNationwide Children's Hospitaltart: 28-05-6041AVJOV-19 Vaccine ( season)COVID-19 Vaccine ( season)[facility] Start: 38-69-7425Gajmbsikc vaccinationFlu vaccine (#1)[facility] Start: 60-28-9983Ybxfkzmkw for malignant neoplasm of breastBreast cancer screen [facility]Start: 03-13-2022 End: 40-85-7614Ebrfomw encounter yylnhqjkb31/16/2022 Office Visit Obstetrics and Gynecology Rosaura Yang MD [address] [place] [address] [facility] OBSTETRICS & GYNECOLOGYStart: 83-32-7365Aqvydettq for malignant neoplasm of cervixMary Rutan HospitalStart: 12-21-2021 End: 37-76-9848WheifschjMercy Health St. [facility] Work Phone: Start: 81-47-1292NpjvnstduxDM Cysto/Retro/Stent/Stone/Holmium Laser (Left)[facility] Start: 52-25-6510Rjoiehyycj radiography of abdomenXR [facility] Hospitaltart: 12-21-2021 End: 92-37-9576Ytfqswkjc to same day surgery centerDeparted Surgical Day Care [facility] Main CampusStart: 12-21-2021 Diagnostic radiography of abdomenXR [facility] Hospitaltart: 12-19-2021 End: 02-53-5259Bssnupr encounter procedureDepartUniversity Hospitals [facility]-Pre-Surgical TestingStart: 12-13-2021 End: 98-88-9623Rhheasj encounter procedureDeUpper [facility]-Pre-Surgical TestingStart: 70-77-1427XqrhlahqqC[facility] Clinic [facility] Work Phone: Start: 02-52-1396TywwbgrkcCleveland Clinic [facility] Work Phone: Start: 93-92-3791Bvnxzvdb cancer screenCervical cancer [facility] [place]Start: 08-08-0175AXVUU-19 Vaccine (3 - Pfizer booster)COVID-19 Vaccine (3 - Pfizer booster)[facility] HospitalStart: 02-07-2021 Pneumococcal 50+ years Vaccine (2 of 2 - PPSV23)Pneumococcal 50+ years Vaccine (2 of 2 - PPSV23)[facility] HospitalStart: 85-45-7307Epcvwy cancer screen Breast cancer [facility], [place]Start: 14-86-6492Xflmkptva vaccination Flu vaccine (#1)[facility], [place]Comment on above:Postponed from 12/27/2018 (Not Indicated)Start: 08-90-8924Lsowjvpb screenDiabetes [facility], [place]Comment on above:Postponed from 2008 (Not Indicated)Start: 03-25-2019 DTaP/Tdap/Td vaccine (1 - Tdap)DTaP/Tdap/Td vaccine (1 - Tdap)[facility], [place]Comment on above:Postponed from 07/09/1987 (Patient Refused)Start: 03-25-2019 HIV screenHIV [facility], [place]Comment on above:Postponed from 07/09/1983 (Patient Refused)Start: 50-06-4129Zjgco screenLipid [facility], [place]Comment on above:Postponed from 2008 (Not Indicated)Start: 85-20-8171Cbeow cancer screen colonoscopyColon cancer screen colonoscopyMercy Health [facility], [place]Start: 78-07-1066Sblpqxof Vaccine (1 of 2)Shingles Vaccine (1 of 2)[facility] HospitalStart: 67-93-2391Ayfhjvndd for malignant neoplasm of colonMary Rutan HospitalStart: 53-29-8353Ipamumgu screenDiabetes [facility] HospitalStart: 16-21-3877Ogvth [facility] HospitalStart: 59-31-5713Muewwkuy screenDiabetes screen [facility]: 70-10-9297Obavisfpx for malignant neoplasm of cervixHPV (without or with Pap)[facility]: 60-02-4870CTyH/Tdap/Td vaccine (1 - Tdap)DTaP/Tdap/Td vaccine (1 - Tdap)[facility]: 02-78-4939Ckpxjuayd B vaccine (1 of 3 - 19+ 3-dose series)Hepatitis B vaccine (1 of 3 - 19+ 3-dose series)[facility]: 87-50-6648Xoycowszj C screeningHepatitis C screenChesapeake Regional [facility]: 93-96-5872USO screeningHIV [facility]: 34-74-9984Zmokscrvat ScreenDepression ScreenChesapeake Regional Medical Center: 97-67-6551Lpwpekszw C screeningHepatitis C [facility] [employer] End: 17-78-4402Qpwmktq, [facility] [employer] Phone: Comment on above:1 Occurrences starting 03/05/2021 until 03/05/2021 End: 32-41-8278Jdjjvdtzfyxcb procedure, preparation of smear, genital sourcePAP SMEAR Lab Routine Women's Annual Routine Gynecological Examination 1 Occurrences starting 02/25/2019 until 02/25/2019[facility] HospitalMALIKComment on above:1 Occurrences starting 02/25/2019 until 02/25/2019 End: 97-04-4897Zwrpodfqgkshz procedure, preparation of smear, genital sourcePAP SMEAR Lab Routine Women's annual routine gynecological examination 1 Occurrences starting 03/05/2021 until 03/05/2021[facility] [employer] Phone: comment on above:1 Occurrences starting 03/05/2021 until 03/05/2021 End: 93-95-5777Fchvimjkhuqkq procedure, preparation of smear, genital sourcePAP SMEAR Lab Routine Women's annual routine gynecological examination 1 Occurrences starting 07/12/2024 until 07/12/2024on [facility] [employer] Phone: Comment on above:1 Occurrences starting 07/12/2024 until 07/12/2024Patient EducationCystoscopy (DC)[facility] Work Phone: Patient referralC[facility] Clinic [facility]or [facility] Work Phone: Immunizations Immunization DateImmunizationNotesCare GadfvdbdJmmbjfhy12-15-3358PDDL-VuM-9 (COVID-19) mRNA-1273 vaccineJordi CHAND [facility]06-04-2022COVID-19 mRNA-1273 (Moderna)MD Jordi Chand Work Phone: [facility]10-14-2021influenza virus vaccine, unspecified formulationGreggarrett CHAND [facility]10-14-2021Influenza, injectable, Madin [place] Canine Kidney, preservative free, quadrivalentDosuma Erwin MD Work Phone: [facility] [employer] Work Phone: [phone]) [phone]RY-26 mRNA-1273 (Moderna)MD Jordi Chand Work Phone: [facility]04-17-2021COVID-19, Pfizer, PF, 30mcg/0.3mLDoumervat rEwin MD Work Phone: [facility] HospitalCdgreb22-82-3980IFBP-VdJ-8 (COVID-19) mRNA-1273 vaccineJordi CHAND [facility] Hiozlqbt12-74-3305CHUCZ-14 mRNA-1273 (Moderna)MD Jordi Chand Work Phone: [facility]03-20-2021COVID-19, Pfizer, PF, 30mcg/0.3mLDouglwayne Erwin MD Work Phone: [facility] HospitaliGuiders Work Phone: [phone]) [phone]oaodwj virus vaccine, unspecified formulationLevigarrett CHAND [facility]01-06-2021Influenza, injectable, Tristan Hernandez Canine Kidney, preservative free, quadrivalentDosuma Erwin MD Work Phone: [facility] [employer] Work Phone: 1([phone]) 470-560710157045-21-5042lhakywxbbdec conjugate vaccine, 13 valent Sue Erwin MD Work Phone: [facility] [employer] Work Phone: Payers DatePayer CategoryPayerPolicy [id number]-[id number] [employer] [address] xxxxxxxx 2019-Present [phone] [address] [place] [address]ygkdvblp 1..[id number] 2..1.104624.3.57[id number] 2..1.239018.3.57[id number] 2.0.1.938995.3.57[id number] 2.0.1.284533.3.57[id number] 2.0.1.054923.3.57[id number] 2.0.1.880809.3.57[id number] 2..1.859324.3.579.[id number] 2.840.1.019709.3.57[id number] 2.16.840.1.192627.3.57[id number] 2.16.840.1.866271.3.57[id number] 2.16.840.1.024104.3.57[id number] 2.16.840.1.930637.3.57[id number] 2.16.840.1.818592.3.57[id number] 2.16.840.1.218705.3.57[id number] 2.16.840.1.495492.3.57[id number] 2.16.840.1.474589.3.57[id number] 2.16.840.1.060483.3.57[id number] 1.2.840.251403.1.13.239.2.7.3.109518.315Private Health Insurance [id number] 2.16.840.1.367288.3.579.2.531 Social History DateTypeDetailFacilityStart: 02-25-2019 End: 82-92-8020Wxnthty smoking status NHISNever smokerTrinity Health System [facility]: 02-25-2019 End: 31-09-5437Dhitdgj intakeYesMAshtabula [facility]: 28-75-2140Pns Assigned At BirthNot on [facility]: 07-30-2012 End: 84-58-2834Npkzgmj use and exposureSmokeless tobacco non-userOhiohealth Grady Memorial HospitalStudent Designed Phone: start: 03-05-2021 End: 59-45-9004Balmhvs intakeCurrent drinker of alcohol (finding)innocutis Phone: Tobacco smoking statusNeverExecutive Urology of [facility] Start: 81-32-5742Hnz Assigned At [facility] Centertart: 26-55-8475Knhnolz of Social functionRiverside [facility] Hospital StuRents.comStart: 06-07-2012 End: 76-28-7516LhbJydoml (finding)[facility] [employer] ContaAzulSexual Orientation [facility] [employer] Goals DatePatient GoalDesired Activity/State Functional Status SafrRwdrabadibXkbsruUylqjnzu39-33-6729Nqueoyhwrn StatusN/AExec[facility]03-27-2023Functional StatusN/AExec[facility]07-27-2022Functional StatusN/A [facility] [employer] Clinical Notes 12-08-2019 to 01-04-2025 Note Date & UpheMejmPabsognt42-36-2330 NoteProgress Note-Physician Patient: KAROL PLASCENCIA Age: 54 years Sex: Female : 1970 Associated Diagnoses: None Author: iWld ARREGUIN, Corey Renteria Postoperative Information Postoperative disposition: Postoperative disposition: To PACU. Optimetrix number: Optimetrix number [id number]. Anesthetic utilized: General. Health Status Allergies: Allergic Reactions (Selected) No Known Medication Allergies Physical Examination Vital Signs 01/04/2025 12:55 EDT Heart Rate Monitored 86 bpm Respiratory Rate Monitored 14 br/min SpO2 99 % 01/04/2025 12:55 EDT Temperature Temporal Artery 36.5 DegC Systolic Blood Pressure 113 mmHg Diastolic Blood Pressure 73 mmHg Blood Pressure Location Left arm Mean Arterial Pressure, Cuff 86 mmHg Pain Assessment: Controlled. General: Awake, Appropriate. Respiratory: Adequate air exchange. Cardiovascular: Stable. Neurological Assessment Anesthetic outcome No anesthetic complications noted. Adequate pain relief. no nausea. Review / Management Condition: Stable. Plan Transfer/Discharge: Transfer/Discharge Discharge when meets criteria.[facility] Medical CenterComment on above:Result Comment: Electronically Signed By: Wild ARREGUIN, Corey Mitchell.br\Date and Time Signed: 01/04/25 16:48 [id number] Note Patient Education - Text [facility]09-09-2025 Note History and Physical Patient: KAROL PLASCENCIA Age: 54 years Sex: Female : 1970 Associated Diagnoses: None Author: NANCY QUINONEZ MD Preoperative Information patient is a 54-year-old female presenting with a left lower pole renal stone Review of Systems 10 point review of system done and negative except as per HPI Health Status Allergies: Allergic Reactions (Selected) No Known Medication Allergies Current medications: (Selected) Inpatient Medications Ordered HYDROmorphone 1 mg/mL injectable solution: 0.4 mg = 0.4 mL, Injection, IV Push, q4min PRN Pain for 5 dose(s), Stop date Limited # of times, Routine, Start date 01/04/25 10:25:00 EDT, 01/04/25 10:25:00 EDT Lactated Ringers IV Inga 1000 mL 1,000 mL: 1,000 mL, IV, 100 mL/hr, Routine, Start date 01/04/25 10:25:00 EDT, 10 hour(s), Total volume (mL): 1,000, 106.8 kg, 2.22, m2 Lactated Ringers IV Inga 1000 mL 1,000 mL: 1,000 mL, IV, 150 mL/hr, Routine, Start date 01/04/25 9:45:00 EDT, 6.7 hour(s), Total volume (mL): 1,000, 106.8 kg, 2.22, m2 cefazolin additive + Sodium Chloride 0.9% intravenous solution 50 mL: 2 gm = 1 EA, Powder-Inj, IV Piggyback, Once, Stop date 01/04/25 10:00:00 EDT, Routine, Start date 01/04/25 10:00:00 EDT, 100 mL/hr, Infuse over 30 minute(s), HOLD if patient has history of anaphylactic allergic reaction to Penicillin. prochlorperazine 5 mg/mL Inj: 5 mg = 1 mL, Injection, IV Push, Once PRN Nausea/Vomiting, Routine, Start date 01/04/25 10:25:00 EDT Prescriptions Prescribed Flomax 0.4 mg Cap: 0.4 mg = 1 cap(s), Oral, BID, X 30 day(s), # 60 cap(s), Refills(s) 1, Pharmacy: [facility]/pharmacy #[id number], 164, cm, 02/02/24 8:05:00 EDT, Height/Length Dosing, 106.5, kg, 02/02/24 8:05:00EDT, Weight Dosing Documented Medications Documented Phylicia: 15 mg, Oral, BID, PRN Allergy symptoms, Allergy symptoms Nexium: 2.5 mg, Oral, Daily, Refills(s) 0, Control of stomach acid Osteo Bi-Flex: See Instructions, Refill(s) 0, Prophylaxis Probiotic Formula (Bacillus Coagulans): Refill(s) 0 Turmeric: 250 mg, Oral, Daily, Refill(s) 0, Prophylaxis diclofenac sodium: 75 mg, Oral, BID, PRN as needed for pain dicyclomine 20 mg Tab: 20 mg = 1 tab(s), Oral, BID levothyroxine 50 mcg (0.05 mg) Tab: 50 microgram = 1 tab(s), Oral, Daily, Thyroid liothyronine 5 mcg Tab: 5 mcg = 1 tab(s), Oral, Daily, Refills(s) 0, Thyroid lisinopril 20 mg Tab: 20 mg = 1 tab(s), Oral, Daily, Refills(s) 0, High blood pressure Problem list: All Problems Cervical adenopathy / SNOMED CT 819776 / Confirmed Sinus congestion / SNOMED CT 055255566 / Confirmed History of kidney stones / SNOMED CT 5177898764 / Confirmed Kidney stone / SNOMED CT 236115413 / Confirmed Morbid obesity with BMI of 40.0-44.9, adult / IMO [id number] / Possible Problem added automatically by Discern Expert based on clinical documentation Right ear pain / SNOMED CT 83512255 / Confirmed Thyroid nodule / SNOMED CT 130014166 / Confirmed Ureteral stone / SNOMED CT 61366974 / Confirmed Histories Past Medical History: No active or resolved past medical history items have been selected or recorded. Family History: Hypertension Mother Primary malignant neoplasm of bone Father Thyroid goiter Mother Procedure history: Cystoscopy, right ureteroscopy, stone basket extraction, stent placement ([id number]) on 12/07/2024 at 54 Years. ESWL - Extracorporeal shockwave lithotripsy for renal calculus ([id number]) on 12/21/2021 at 51 Years. Cystoscopic insertion of ureteric stent ([id number]) on 11/29/2021 at 51 Years. Cystoscope/Lt. RG/Lt. double J stent ([id number]) on 11/13/2021 at 51 Years. Colonoscopy ([id number]) on 08/26/2018 at 48 Years. Diagnostic endoscopy ([id number]). D&C - Dilatation and curettage ([id number]). Biopsy of breast ([id number]). Social History Social & Psychosocial Habits Alcohol 12/07/2024 Risk Assessment: Denies Alcohol Use 12/07/2024 Use: Current Frequency: 1-2 times per month Substance Abuse 12/07/2024 Risk Assessment: Denies Substance Abuse Tobacco 12/07/2024 Tobacco Use: Never (less than 100 in l Smokeless tobacco use: Never . Physical Examination General: Alert and oriented x 3, NAD Cardiovascular: Regular rhythm Lungs: Nonlabored breathing on room air Skin: Warm and dry Abdomen: Soft, nontender, nondistended with no guarding or rigidity noted : No flank or suprapubic tenderness noted on palpation Extremities: No peripheral edema noted Vital Signs 01/04/2025 10:07 EDT Heart Rate Monitored 91 bpm Systolic Blood Pressure 149 mmHg HI Diastolic Blood Pressure 88 mmHg Mean Arterial Pressure, Cuff 108 mmHg 01/04/2025 10:07 EDT Blood Pressure Location Left arm 01/04/2025 10:06 EDT Heart Rate Monitored 95 bpm SpO2 99 % 01/04/2025 10:06 EDT Respiratory Rate 20 br/min 01/04/2025 10:06 EDT Systolic Blood Pressure 142 mmHg HI Diastolic Blood Pressure 89 mmHg Mean Arterial Pressure, Cuff 106 mmHg 01/04/2025 (more content not included)...[facility]:Result Comment: Electronically Signed By: NANCY QUINONEZ MD\.br\Date and Time Signed: 01/04/25 10:59 [id number] NoteProgress Note-Physician Patient: KAROL PLASCENICA Age: 54 years Sex: Female : 1970 Associated Diagnoses: None Author: Corey Rome MD Postoperative Information Postoperative disposition: Postoperative disposition: To PACU. Optimetrix number: Optimetrix number [id number]. Anesthetic utilized: General. Health Status Allergies: Allergic Reactions (Selected) No Known Medication Allergies Physical Examination Vital Signs 12/07/2024 12:00 EDT SpO2 99 % 12/07/2024 12:00 EDT Respiratory Rate Monitored 15 br/min 12/07/2024 12:00 EDT Heart Rate Monitored 79 bpm 12/07/2024 12:00 EDT Temperature Temporal Artery 36.4 DegC Systolic Blood Pressure 140 mmHg HI Diastolic Blood Pressure 83 mmHg Blood Pressure Location Left arm Mean Arterial Pressure, Cuff 102 mmHg Pain Assessment: Controlled. General: Awake, Appropriate. Respiratory: Adequate air exchange. Cardiovascular: Stable. Neurological Assessment Anesthetic outcome No anesthetic complications noted. Adequate pain relief. no nausea. Review / Management Condition: Stable. Plan Transfer/Discharge: Transfer/Discharge Discharge when meets criteria.[facility]:Result Comment: Electronically Signed By: Corey Rome MD\.br\Date and Time Signed: 12/07/24 15:26 [id number] Note Patient Education - Text [facility]08-12-2025 Note Progress Note-Physician Patient: KAROL PLASCENCIA Age: 54 years Sex: Female : 1970 Associated Diagnoses: None Author: Corey Rome MD Preoperative Information Anesthesia Preop Info: Time patient last ate or drank 12/07/2024 00:00:00. Anesthesia history: Patient history: None. Family history+: None. Informed consent: Signed by patient. Including risks, benefits, and alternatives related to the: Anesthetic plan. Re-evaluation prior to induction: Wild ARREGUIN, Corey Renteria. Review of Systems Eye Ear/Nose/Mouth/Throat Respiratory: No shortness of breath, No cough. Cardiovascular: Negative, No chest pain. Gastrointestinal: No heartburn. Musculoskeletal Neurologic Health Status Allergies: Allergic Reactions (Selected) No Known Medication Allergies, Allergies (1) Active Severity Reaction No Known Medication Allergies None Documented Current medications: (Selected) Inpatient Medications Ordered HYDROmorphone 1 mg/mL injectable solution: 0.4 mg = 0.4 mL, Injection, IV Push, q4min PRN Pain for 5 dose(s), Stop date Limited # of times, Routine, Start date 12/07/24 11:05:00 EDT, 12/07/24 11:05:00 EDT Lactated Ringers IV Inga 1000 mL 1,000 mL: 1,000 mL, IV, 100 mL/hr, Routine, Start date 12/07/24 11:05:00 EDT, 10 hour(s), Total volume (mL): 1,000, 106.8 kg, 2.22, m2 Lactated Ringers IV Inga 1000 mL 1,000 mL: 1,000 mL, IV, 150 mL/hr, Routine, Start date 12/07/24 9:15:00 EDT, 6.7 hour(s), Total volume (mL): 1,000, 107.7 kg, 2.22, m2 cefazolin additive + Sodium Chloride 0.9% intravenous solution 50 mL: 2 gm = 1 EA, Powder-Inj, IV Piggyback, Once, Stop date 12/07/24 10:00:00 EDT, Routine, Start date 12/07/24 10:00:00 EDT, 100 mL/hr, Infuse over 30 minute(s), HOLD if patient has history of anaphylactic allergic reaction to Penicillin. promethazine additive 6.25 mg + Sodium Chloride 0.9% IV Inga 50 mL (INT) 50 mL: IV Piggyback, Once PRN Nausea/Vomiting, Routine, Start date 12/07/24 11:05:00 EDT, 150.75 mL/hr, Infuse over 20 minute(s), 12/07/24 11:05:00 EDT Prescriptions Prescribed Flomax 0.4 mg Cap: 0.4 mg = 1 cap(s), Oral, BID, X 30 day(s), # 60 cap(s), Refills(s) 1, [id number], [facility], cm, 02/02/24 8:05:00 EDT, Height/Length Dosing, 106.5, kg, 02/02/24 8:05:00EDT, Weight Dosing Pyridium 100 mg Tab: 100 mg = 1 tab(s), Oral, TID, X 3 day(s), # 9 tab(s), Refills(s) 0, [id number], 166, cm, 12/07/24 9:41:00 EDT, Height/Length Dosing, 106.8, kg, 12/07/24 9:41:00EDT, Weight Dosing Roxicodone 5 mg Tab: 5 mg = 1 tab(s), Oral, q6hr, PRN for pain, X 2 day(s), # 4 tab(s), Refills(s) 0, [id number], 166, cm, 12/07/24 9:41:00 EDT, Height/Length Dosing, 106.8, kg, 12/07/24 9:41:00 EDT, Weight Dosing Documented Medications Documented Phylicia: Oral, PRN Allergy symptoms Nexium: Refills(s) 0 Osteo Bi-Flex: Refill(s) 0 Probiotic Formula (Bacillus Coagulans): Refill(s) 0 Turmeric: Refill(s) 0 diclofenac sodium: 75 mg, Oral, BID, PRN as needed for pain dicyclomine 20 mg Tab: 20 mg = 1 tab(s), Oral, BID levothyroxine 50 mcg (0.05 mg) Tab: 50 microgram = 1 tab(s), Oral, Daily, Thyroid liothyronine 5 mcg Tab: 5 mcg = 1 tab(s), Oral, Daily, Refills(s) 0, Thyroid lisinopril 20 mg Tab: 20 mg = 1 tab(s), Oral, Daily, Refills(s) 0, High blood pressure, Home Medications (13) Active Phylicia , PRN, Oral diclofenac sodium 75 mg, PRN, Oral, BID dicyclomine 20 mg Tab 20 mg = 1 tab(s), Oral, BID Flomax 0.4 mg Cap 0.4 mg = 1 cap(s), Oral, BID levothyroxine 50 mcg (0.05 mg) Tab 50 microgram = 1 tab(s), Oral, Daily liothyronine 5 mcg Tab 5 mcg = 1 tab(s), Oral, Daily lisinopril 20 mg Tab 20 mg = 1 tab(s), Oral, Daily Nexium Osteo Bi-Flex Probiotic Formula (Bacillus Coagulans) Pyridium 100 mg Tab 100 mg = 1 tab(s), Oral, TID Roxicodone 5 mg Tab 5 mg = 1 tab(s), PRN, Oral, q6hr Turmeric , Medications (5) Active Scheduled: (1) ceFAZolin + Sodium Chloride 0.9% Minibag 50 mL 2 gm 1 EA, IV Piggyback, Once Continuous: (2) Lactated Ringers 1,000 mL 1,000 mL, IV, 150 mL/hr Lactated Ringers 1,000 mL 1,000 mL, IV, 100 mL/hr PRN: (2) HYDROmorphone 1 mg/mL SOLN [F] 0.4 mg 0.4 mL, IV Push, q4min promethazine 6.25 mg + Sodium Chloride 0.9% 50 mL 6.25 mg 0.25 mL, IV Piggyback, Once Problem list: All Problems Cervical adenopathy / SNOMED CT 452140 / Confirmed History of kidney stones / SNOMED CT 6303216189 / Confirmed Kidney stone / SNOMED CT 017823167 / Confirmed Morbid obesity with BMI of 40.0-44.9, adult / IMO [id number] / Possible Problem added automatically by Discern Expert based on clinical documentation Right ear pain / SNOMED CT 32070501 / Confirmed Sinus congestion / SNOMED CT 097354156 / Confirmed Thyroid nodule / SNOMED CT 609321499 / Confirmed Ureteral stone / SNOMED CT 61424339 / Confirmed, Active Problems (8) Cervical adenopathy History of kidney stones Kidney stone Morbid obesity with BMI of 40.0-44. (more content not included)...[facility] on above:Result Comment: Electronically Signed By: Wild ARREGUIN, Corey Mitchell.br\Date and Time Signed: 12/07/24 11:08 [id number] Hospital Discharge instructions Patient Education 12/03/2024 13:57:00 Ureteroscopy Ureteroscopy Ureteroscopy is a procedure to check for and treat problems inside part of the urinary tract. In this procedure, a long rigid or flexible tube with a lens and light at the end (ureteroscope) is used to look at the inside of the kidneys and the ureters. The ureters are the tubes that carry urine from the kidneys to the bladder. The ureteroscope is inserted into one or both of the ureters. You may need this procedure if you have frequent urinary tract infections (UTIs), blood in your urine, or a stone in one or both of your ureters. A ureteroscopy can be done: To find the cause of urine blockage in a ureter and to evaluate other abnormalities inside the ureters or kidneys. To remove stones. To remove or treat growths of tissue (polyps), abnormal tissue, and some types of tumors. To remove a tissue sample and check it for disease under a microscope (biopsy). Tell a health care provider about: Any allergies you have. All medicines you are taking, including vitamins, herbs, eye drops, creams, and mmwq-hdj-dufncbq medicines. Any problems you or family members have had with anesthetic medicines. Any bleeding problems you have. Any surgeries you have had. Any medical conditions you have. Whether you are or may be . What are the risks? Your health care provider will talk with you about risks. These may include: Abdominal pain or a burning feeling or pain while urinating. Abnormal bleeding. A UTI. Allergic reactions to medicines. Scarring that narrows the ureter (stricture) or swelling. Creating a hole (perforation) in the ureter. Damage to other structures or organs, such as the part of your body that drains urine from your bladder (urethra), your bladder, or your uterus. What happens before the procedure? When to stop eating and drinking 8 hours before your procedure ?Stop eating most foods. Do not eat meat, fried foods, or fatty foods. ?Eat only light foods, such as toast or crackers. ?All liquids are okay except energy drinks and alcohol. 6 hours before your procedure ?Stop eating. ?Drink only clear liquids, such as water, clear fruit juice, black coffee, plain tea, and sports drinks. ?Do not drink energy drinks or alcohol. 2 hours before your procedure ?Stop drinking all liquids. ?You may be allowed to take medicines with small sips of water. Medicines Ask your health care provider about: Changing or stopping your regular medicines. These include any diabetes medicines or blood thinnersyou take. Taking medicines such as aspirin and ibuprofen. These medicines can thin your blood. Do not take these medicines unless your health care provider tells you to. Taking chfm-khf-ukxamdm medicines, vitamins, herbs, and supplements. General instructions Do not use any products that contain nicotine or tobacco for at least 4 weeks before the procedure.These products include cigarettes, chewing tobacco, and vaping devices, such as e-cigarettes. If you need help quitting, ask your health care provider. If you will be going home right after the procedure, plan to have a responsible adult: ?Take you home from the hospital or clinic. You will not be allowed to drive. ?Care for you for the time you are told. Ask your health care provider what steps will be taken to help prevent infection. These may include: ?Washing skin with a soap that kills germs. ?Receiving antibiotic medicine. Tests You may have an exam or testing. ?You may have a urine sample taken to check for infection. What happens during the procedure? An IV will be inserted into one of your veins. You may be given: ?A sedative. This helps you relax. ?Anesthesia. This will: ?Numb certain areas of your body. ?Make you fall asleep for surgery. Your urethra will be cleaned with a germ-killing solution. The ureteroscope will be passed through your urethra into your bladder. A salt-water solution will be sent through the ureteroscope to fill your bladder. This will help the health care provider see the openings of your ureters more clearly. The ureteroscope will be passed into your ureter. ?If a growth is found, a biopsy may be done. ?If a stone is found, it may be removed through the ureteroscope, or the stone may be broken up using a laser, shock waves, or electrical energy. ?In some cases, if the ureter is too small, a tube may be inserted that keeps the ureter open (ureteral stent). The stent may be left in place for 1 or 2 weeks, and then the ureteroscopy procedure will be done again. The scope will be removed, and your bladder will be emptied. The procedure may vary among health care providers and hospitals. What happens after the procedure? Your blood pressure, heart rate, breathing rate, and blood oxygen level will be monitored until youleave the hospital or clinic. It is up to you to get the results of your procedure. Ask your health care provider, or the department that is doing the procedure, when your results will be ready. Summary Ureteroscopy is a procedure used to look at the inside of the kidneys and the ureters. You may need this procedure if you have frequent urinary tract infections (UTIs), blood in your urine, or a stone in one or both of your ureters. Follow instructions from your health care provider about eating and drinking. In some cases, if the ureter is too small, a tube may be inserted that keeps the ureter open (ureteral stent). The stent may be left in place for 1 or 2 weeks to keep the ureter open, and then the ureteroscopy procedure will be done again. This information is not intended to replace advice given to you by your health care provider. Make sure you discuss any questions you have with your health care provider. Document Revised: 03/17/2023 Document Reviewed: 03/17/2023 [employer] Patient Education 2023 [employer]. Follow Up Care 11/15/2024 10:21:38 With:HODAN ARREGUIN, ISAÍAS CRUZ Address: When: Unknown Comments:sched cysto, R URS, laser litho, possible stent [facility] 08-08-2025 NotePatient Education Urology Ureteroscopy Ureteroscopy is a procedure to check for and treat problems inside part of the urinary tract. In this procedure, a long rigid or flexible tube with a lens and light at the end (ureteroscope) is used to look at the inside of the kidneys and the ureters. The ureters are the tubes that carry urine from the kidneys to the bladder. The ureteroscope is inserted into one or both of the ureters. You may need this procedure if you have frequent urinary tract infections (UTIs), blood in your urine, or a stone in one or both of your ureters. A ureteroscopy can be done: ??? To find the cause of urine blockage in a ureter and to evaluate other abnormalities inside the ureters or kidneys. ??? To remove stones. ??? To remove or treat growths of tissue (polyps), abnormal tissue, and some types of tumors. ??? To remove a tissue sample and check it for disease under a microscope (biopsy). Tell a health care provider about: ??? Any allergies you have. ??? All medicines you are taking, including vitamins, herbs, eye drops, creams, and kaeo-kqr-pbifand medicines. ??? Any problems you or family members have had with anesthetic medicines. ??? Any bleeding problems you have. ??? Any surgeries you have had. ??? Any medical conditions you have. ??? Whether you are or may be . What are the risks? Your health care provider will talk with you about risks. These may include: ??? Abdominal pain or a burning feeling or pain while urinating. ??? Abnormal bleeding. ??? A UTI. ??? Allergic reactions to medicines. ??? Scarring that narrows the ureter (stricture) or swelling. ??? Creating a hole (perforation) in the ureter. ??? Damage to other structures or organs, such as the part of your body that drains urine from yourbladder (urethra), your bladder, or your uterus. What happens before the procedure? When to stop eating and drinking ??? 8 hours before your procedure ? Stop eating most foods. Do not eat meat, fried foods, or fatty foods. ? Eat only light foods, such as toast or crackers. ? All liquids are okay except energy drinks and alcohol. ??? 6 hours before your procedure ? Stop eating. ? Drink only clear liquids, such as water, clear fruit juice, black coffee, plain tea, and sports drinks. ? Do not drink energy drinks or alcohol. ??? 2 hours before your procedure ? Stop drinking all liquids. ? You may be allowed to take medicines with small sips of water. Medicines Ask your health care provider about: ??? Changing or stopping your regular medicines. These include any diabetes medicines or blood thinners you take. ??? Taking medicines such as aspirin and ibuprofen. These medicines can thin your blood. Do not take these medicines unless your health care provider tells you to. ??? Taking fjwf-mxd-swzoyhg medicines, vitamins, herbs, and supplements. General instructions ??? Do not use any products that contain nicotine or tobacco for at least 4 weeks before the procedure. These products include cigarettes, chewing tobacco, and vaping devices, such as e-cigarettes. If you need help quitting, ask your health care provider. ??? If you will be going home right after the procedure, plan to have a responsible adult: ? Take you home from the hospital or clinic. You will not be allowed to drive. ? Care for you for the time you are told. ??? Ask your health care provider what steps will be taken to help prevent infection. These may include: ? Washing skin with a soap that kills germs. ? Receiving antibiotic medicine. Tests ??? You may have an exam or testing. ? You may have a urine sample taken to check for infection. What happens during the procedure? An IV will be inserted into one of your veins. ??? You may be given: ? A sedative. This helps you relax. ? Anesthesia. This will: ? Numb certain areas of your body. ? Make you fall asleep for surgery. ??? Your urethra will be cleaned with a germ-killing solution. ??? The ureteroscope will be passed through your urethra into your bladder. ??? A salt-water solution will be sent through the ureteroscope to fill your bladder. This will help the health care provider see the openings of your ureters more clearly. ??? The ureteroscope will be passed into your ureter. ? If a growth is found, a biopsy may be done. ? If a stone is found, it may be removed through the ureteroscope, or the stone may be broken up using a laser, shock waves, or electrical energy. ? In some cases, if the ureter is too small, a tube may be inserted that keeps the ureter open (ureteral stent). The stent may be left in place for 1 or 2 weeks, and then the ureteroscopy procedure will be done again. ??? The scope will be removed, and your bladder will be emptied. The procedure may vary among health care providers and hospitals. What happens after the procedure? (more content not included)...[facility]10[facility] Hospital Discharge instructions Patient Education 02/02/2024 07:58:03 Dietary Guidelines [...] about 300 mg of calcium at each meal.Foods that contain 200 500 mg of calcium a serving include: ?8 oz (237 mL) of milk, yhnzjed-xcgdbglucpho-zluyc milk, and calcium- fortifiedfruit juice. Calcium-fortified means that calcium has been [...] the table and allow each person to addtheir own salt to taste. Use vegetable protein, such as beans, textured vegetable protein (TVP), or tofu, instead of meat inpasta, casseroles, and soups. Meal planning Eat less salt, if told by your dietitian. To do this: ?Avoid eating processed or pre-made food. ?Avoid eating fast food. Eat less animal protein, including cheese, meat, poultry, or fish, if told by your dietitian. To dothis: ?Limit the number of times you have meat, poultry, fish, or cheese each week. Eat a diet free of meat at least 2 days a week. ?Eat only one serving each day of meat, poultry, fish, or seafood. ?When you prepare animal proteins, cut pieces into small portion sizes. For most meat and fish, oneserving is about the size of the palm [...] ?Spinach (cooked), rhubarb, beets, sweet potatoes, and Filipino chard. ?Peanuts. ?Potato chips, bangladeshi fries, and baked potatoes with skin on. ?Nuts and nut products. ?Chocolate. If you regularly take a diuretic medicine, make sure to eat at least 1 or 2 servings of fruits or vegetables that are high in potassium each day. These include: ?Avocado. ?Banana. ?Guayanilla, prune, carrot, or tomato juice. ?Baked potato. [...] magnesium, fish oil, or vitamin B6. Take ixfp-eka-uokdofr and prescription medicines only as told by [...] Casseroles. Pizza. Lasagna. Frozen meals. Potato chips. Martiniquais fries. The items listed above may not be a complete list of foods and beverages you should limit. Contact a dietitian for more information. What foods should I avoid? Talk to your dietitian about specific foods you should avoid based on the type of kidney stones youhave and your overall health. Fruits Grapefruit. The item listed above may not be a complete list of foods and beverages you should avoid. Contact adietitian for more information. Summary Kidney stones are [...] provider. Document Revised: 07/25/2022 Document Reviewed: 07/25/2022 [email or web address] Patient Education 2023 [employer]. Follow Up Care 01/27/2023 08:34:01 With:MANNIE ARREGUIN, Jordi Mckeon, URL Address: [facility] [address] [place] [address]- When: Unknown [facility] [id number] NotePatient Education Nephrology Dietary Guidelines to Help Prevent [...] ? 8 oz (237 mL) of milk, cyyvkzo-dkkkbnedskzp-ikalz milk, and calcium- fortifiedfruit juice. Calcium-fortified means that calcium has been [...] Spinach (cooked), rhubarb, beets, sweet potatoes, and Filipino chard. ? Peanuts. ? Potato chips, bangladeshi fries, and baked potatoes with skin on. ? Nuts and nut products. ? Chocolate. ? If you regularly take a diuretic medicine, make sure to eat at least 1 or 2 servings of fruits orvegetables that are high in potassium each day. These include: ? Avocado. ? Banana. ? Guayanilla, prune, carrot, or tomato juice. ? Baked [...] with your dietitian to find an eating planand weight loss strategies that work best for you. General information ? Talk to your health care provider and dietitian about taking daily supplements. Depending on yourhealth and the cause of your kidney stones, you may be told: ? Do not take high-dose supplements of vitamin C (1,000 mg a day or more). ? To take a calcium supplement. ? To take a daily probiotic supplement. ? To take other supplements such as magnesium, fish oil, or vitamin B6. ? Take wgpw-cww-okpcgkq and prescription medicines only as told by your health care provider. Theseinclude suppleme (more content not included)...[facility]10-16-2023 Evaluation note* Encounter Date Diagnosis Assessment Notes Treatment Notes Treatment Clinical Notes Jan, Primary osteoarthritis of left k nee (ICD-10 - M17.12) Jan,cute medial meniscus tear of left knee, initial encounter (ICD-10 - S83.242A) Physical exam was preformed today. Patient advised to keep up with exercise and Tylenol/Motrin for pain. Down the road if patient is having issues, we can consider injections for the knee. Patient can f/u PRN. Jan,Other specified postprocedural states (ICD-10 - Z98.890) [facility] Other 09-12-2023 Evaluation note* Encounter Date Diagnosis Assessment Notes Treatment Notes Treatment Clinical Notes Dec, Primary osteoarthritis of right knee (ICD-10 - M17.11) Dec,cute medial meniscus tear of left knee, initial encounter (ICD-10 - S83.242A)Patient instructed on gentle motion exercise as well as quadriceps and hamstring strengthening exericse. Discussed use of ice and heat for pain relief as well as elevation of the leg to prevent swelling. Continue PT as needed. Patient may shower and allow steri strips to fall off. Dec,rimary osteoarthritis of left knee (ICD-10 - M17.12) Dec,ain in right knee (ICD-10 - M25.561) Dec,Other tear of medial meniscus, current injury, right knee, subsequent encounter (ICD-10 - S83.241D) Dec,Other specified postprocedural states (ICD-10 - Z98.890) [facility] Other 09-05-2023 Evaluation note* Encounter Date Diagnosis Assessment Notes Treatment Notes Treatment Clinical Notes Dec, Other specified postprocedural s tates (ICD-10 - Z98.890) [facility] Other 08-24-2023 Evaluation note* Encounter Date Diagnosis Assessment Notes Treatment Notes Treatment Clinical Notes Nov, Primary osteoarthritis of right knee (ICD-10 - M17.11) Nov,cute medial meniscus tear of left knee, initial encounter (ICD-10 - S83.242A)MRI results were reviewed with patient in detail. [...] these risks and would like to proceed. Nov,rimary osteoarthritis of left knee (ICD-10 - M17.12) Nov,Internal derangement of left knee (ICD-10 - M23.92) Nov,ain in right knee (ICD-10 - M25.561) Nov,ain in left knee (ICD-10 - M25.562) Nov,Other tear of medial meniscus, current injury, right knee, subsequent encounter (ICD-10 - S83.241D) [facility] Other 07-31-2023 Evaluation note* Encounter Date Diagnosis [...] we will proceed with MRI left knee Oct,rimary osteoarthritis of right knee (ICD-10 - M17.11) Oct,rimary osteoarthritis of left knee (ICD-10 - M17.12) Oct,Internal derangement of left knee (ICD-10 - M23.92)Extensive discussion about current condition and treatment options [...] of pain and plan potential surgical treatment. Oct,ain in right knee (ICD-10 - M25.561) Oct,ain in left knee (ICD-10 - M25.562) [facility] Other 03-27-2023 Hospital Discharge instructions Patient Education 07/22/2022 10:14:42 Kidney Stones, Wvkp-fz-Yuwz Kidney Stones Kidney stones are rock-like masses [...] Follow these instructions at home: Medicines Take zecm-xnd-nloyjov and prescription medicines only as told by [...] Document Reviewed: 08/31/2019 Elsevier Patient Education 2019 [employer] Follow Up Care 12/26/2021 13:33:59 With:MANNIE ARREGUIN, Jordi Mckeon, ISAÍAS Address: [address] [place] [address]- When:01/22/2023 Comments:CUCAB [facility] [place] [id number] Hospital Discharge instructions Patient Education 11/21/2021 12:49:44 Kidney Stones, Wimu-at-Fezz Kidney Stones Kidney stones are rock-like masses [...] Follow these instructions at home: Medicines Take dxap-obg-erjvpzw and prescription medicines only as told by [...] 09/30/2008 Document Revised: 08/31/2019 Document Reviewed: 08/31/2019 [employer] Patient Education 2020 [employer]. Follow Up Care 11/14/2021 08:29:10 With:MANNIE ARREGUIN, Jordi Mckeon, URL Address: [address] [place], [place] [id number]- When: Unknown [facility] 07-19-2022 NoteOPERATIVE NOTE OPERATION DATE: 11/13/2021 PREOPERATIVE DIAGNOSIS: 1. Left hydronephrosis with ureteral calculus. 2. Leukocytosis. 3. UTI. 4. Right renal calculi. POSTOPERATIVE DIAGNOSIS: 1. Left hydronephrosis with ureteral calculus. 2. Leukocytosis. 3. UTI. 4. Right renal calculi. PROCEDURE: 1. Cystoscopy. 2. Left retrograde pyelogram. 3. Left double J stent placement under fluoroscopic guidance. SURGEON: Levi Chand M.D. COMPLICATIONS: None. ANESTHESIA: Dr. Castellanos with [...] procedure well. [facility] [place] [place] and then back to PACU in satisfactory [...] in agreement with the plan. CC: Sue Erwin M.D. : [facility] Signed and Approved by: DR JORDI CHAND 11/29/2021 08:56:00[facility] [id number] NotePROCEDURE: XR KNEE RT 4V or > COMPARISON: None. HISTORY: Pain in right knee FINDINGS: BONES:No acute fracture or dislocation. Mild osteoarthritis with marginal osteophyte formation SOFT TISSUES:Negative. No visible soft tissue swelling. EFFUSION:None visible. OTHER: Negative. IMPRESSION: Mild osteoarthritis Electronically authenticated by: KODY GARRISON Date: 2021-10-03 07:59[facility] [id number] Evaluation + Plan note Future Appointments Appointment Date:12/06/2024 03:00:00 PM Scheduled Provider: Location:.[facility] Appointment Type:CV EKG (FT) Appointment Date:12/07/2024 11:15:00 AM Scheduled Provider: Location:[facility] Appointment Type:Surgery FT [facility] Evaluation + Plan note No data available for this section [facility] Evaluation + Plan note Future Appointments Appointment Date:01/27/2023 08:00:00 AM Scheduled Provider:Jordi CHAND MD Location:[facility] Appointment Type:URO Office Visit [facility] Evaluation note* Diagnosis Vaginal discharge Leukorrhea, not specified as infective Women's annual routine gynecological examination documented in this encounter [email or web address] Work Phone: evaluation noteNo assessment information available [facility] Work Phone: Evaluation noteNo InformationNortJefferson Hospital [employer] Other Evaluation note* Diagnosis Women's annual routine gynecological examination documented in this encounter [facility] Narrative - Reported* Type Description Date Medical History GERD Medical HistoryHypothyroidism [facility] [employer] Other History general Narrative - Reported* Type Description Date Medical History GERD Medical HistoryHypothyroidismSurgical History1. LEFT knee arthroscopy with partial medial meniscectomy 2. Chondral debridement medial femoral condyle, medial tibial plateau, medial patellar facet [facility] Other Progress note No data available for this section [facility] Reason for referral (narrative)No reason for referral information availableMercy Health St. 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 [employer] Advance Directive Response Recorded Date/ Time Advance Directives No November 26 11:36am Advance Directive Response Recorded Date/ Time Advance Directives No December 20, 2022 12:52pm Chief Complaint and Reason for Visit Chief Complaint Kidney Ston Kidney Ston Kidney Stones Kidney Stones Kidney Stones Chief Complaint Knee Pain Chief Complaint Admit Date Unknown November 14, 2024 8:35 am Family History No Family History Records Found Relationship Condition Age at Onset Recorded Date/T ivette Not Specified Atrial fibrillation Unknown Disorder of hemostasisUnknownfatherStatus post four vessel coronary artery bypassUnknownCoronary artery diseaseUnknownMalignant neoplasm of prostateUnknown Relationship Condition Age at Onset Recorded Date/T ivette Not Specified Disorder of hemostasis Unknown Atrial fibrillationUnknownfatherMalignant neoplasm of prostateUnknownCoronary artery diseaseUnknownStatus post four vessel coronary artery bypassUnknown Malignant neoplasm of boneUnknown Relationship Condition Age at Onset Recorded Date/T ivette mother Disorder of hemostasis Unknown Atrial fibrillationUnknownfatherMalignant neoplasm of prostateUnknownCoronary artery diseaseUnknownStatus post four vessel coronary artery bypassUnknown Malignant neoplasm of boneUnknownfatherDeceasedUnknownMalignant neoplasmUnknown Summary Purpose Additional Source Comments Care Teams (unrecognized sec tion and content) Team MemberRelationshipSpecialtyStart DateEnd Date Sue Erwin MD [address] [phone] PCP - [facility]01/16/16 Team Status: Inactive Member Role Status Dates Sue Erwin MD Primary Care Provider Active Iwona Jonas ProviderActive Team Status: Inactive Member Role Status Dates Jordi Chand MD Attending Provider Active Virgen Loomis ProviderActive Team Status: Active Member Role Status Dates Sue Erwin MD Primary Care Provider Active Team Status: Inactive Member Role Status Dates Sue Erwin MD Primary Care Provider Active Iwona Nettles ProviderActiveTeam MemberRelationshipSpecialtyStart DateEnd Date Sue Erwin MD [address] [place] [address] PCP - [facility]01/16/16 Team Status: Inactive Member Role Status Dates Vee Pittman MD Attending Provider Active Sta rt: November 14, 2024 End: November 14, 2024 INFORMATION SOURCE (unrecogn ized section and content) DATE CREATED AUTHOR 08/18/2022 [facility] DATE CREATED AUTHOR AUTHOR'S ORGANIZ ATION 07/26/2024 [facility] DATE CREATED AUTHOR AUTHOR'S ORGANIZ ATION 11/17/2024 [facility] DATE CREATED AUTHOR AUTHOR'S ORGANIZ ATION 12/14/2024 [facility] DATE CREATED AUTHOR AUTHOR'S ORGANIZ ATION 01/14/2025 [facility] REASON FOR VISIT (unrecogniz ed [...] BE BASED ON THE PRIMARY CLINICAL RECORDS. [employer] [facility]. provides no warranty or guarantee of the accuracy or completeness of information in this document.
--- OUTSIDE RECORDS SUMMARY | 2025-02-21 07:00 | XMS_ITS | Clinical Summary ---
Author Organization [facility] Address [address], [address] [place] [address] Care Team Providers Care Internal Medicine Specialist Name Role Phone Neymar Win MD Primary Care Provider [phone] Allergies No known active allergies Medications MedicationSigDispense QuantityRefillsLast FilledStart DateEnd DateStatus dicyclomine (BENTYL) 20 MG tablet TAKE 1 TABLET BY MOUTH 3 TIMES A DAY BEFORE NEYMR55312/27/2018Active levothyroxine (SYNTHROID) 50 MCG tablet TAKE 1 TABLET BY MOUTH EVERY [id number] [facility] ESOMEPRAZOLE MAGNESIUM 20 MG delayed release capsule TAKE 2 CAPSULES BY MOUTH EVERY DAY02/09/2020Active diclofenac (VOLTAREN) 75 MG EC tablet TAKE 1 TABLET BY MOUTH TWICE A DAY02/15/2022ctive lisinopril (PRINIVIL;ZESTRIL) 20 MG tablet Take 1 tablet by mouth dailyActive liothyronine (CYTOMEL) 5 MCG tablet TAKE 1 TABLET BY MOUTH EVERY DAY ON EMPTY STOMACH FOR 30 DAYS5Active Active Problems No known active problems Immunizations ImmunizationAdministration DatesNext DueCOVID-19, Inactive, MODERNA BLUE border, Primary or Immunocompromised, (age 12y+)08/12/2020,08/12/2020,07/17/2020, 07/17/2020,1COVID-19, Inactive, PFIZER PURPLE top, DILUTE for use, (age 12 y+)08/12/2020,07/15/2020Influenza Virus Gkhxuro4302/08/2021,05/03/2020 Influenza, FLUCELVAX, (age 6 mo+), MDCK, Quadv PF, 0.5mL02/08/2021,05/03/2020 Pneumococcal, PCV-13, PREVNAR 13, (age 6w+), IM, 0.5mL02/08/2020 Family History Medical HistoryRelationNameCommentsCancerFatherClotting DisorderMotherHigh CholesterolMotherThyroid DiseaseMotherRelationNameStatusCommentsFatherDeceased Maternal GrandfatherDeceasedMaternal GrandmotherDeceasedMotherAlivePaternal GrandfatherDeceasedPaternal GrandmotherDeceased Social History Tobacco UseTypesPacks/DayYears UsedDateSmoking Tobacco: NeverSmokeless Tobacco: Never Tobacco Cessation:Counseling Given: Not Answered Alcohol UseStandard Drinks/WeekCommentsYes0 (1 standard drink = 0.6 oz pure alcohol)CommentsNoSex and Gender InformationValueDate RecordedSex Assigned at BirthNot on fileLegal MmmKqvbtl58/10/2013 6:45 PM ESTGender Identity Not on fileSexual OrientationNot on file Last Filed Vital Signs Vital SignReadingTime TakenCommentsBlood Sogwqwxs195/90007/12/2024 11:12 AM EDT Pulse--Temperature--Respiratory Rate--Oxygen Saturation--Inhaled Oxygen Concentration--Izykkk461.4 kg (239 lb)07/12/2024 11:12 AM ESDAytmyd999.1 cm (5' 5 )07/12/2024 11:12 AM EDTBody Mass Index39.77007/12/2024 11:12 AM EDT Plan of Treatment Health MaintenanceDue DateLast DoneCommentsDepression Nqvuje0907/08/1980HIV screen 07/09/1983Hepatitis C xtqhfn4607/08/1986DTaP/Tdap/Td vaccine (1 - Tdap)07/09/1987 Hepatitis B vaccine (1 of 3 - 19+ 3-dose series)07/09/1987HPV (without or with Pap)1998Diabetes vrbgat6607/09/20039440Ymjxgf34/13/6673Qjebqezznws48/13/2014 Colorectal Cancer Xgejfc4207/08/2013FIT/FOBT: Average risk2013Fecal-DNA (Cologuard): Average risk2013Sigmoidoscopy/CT saqlfndodufo86/13/2014 Shingles vaccine (1 of 2)2018Pneumococcal 50+ years Vaccine (2 of 2 - PCV20 or PCV21)Breast cancer , 03/18/2019, 02/27/2018Flu vaccine (#1)/, 02/08/2021, 05/03/2020, Additional history existsCOVID-19 Vaccine ( season) 507/, 09/29/2021, 08/12/2020, Additional history existsCervical cancer hdeuxq9307/13/2027Pap smear803/, 05/12/2023, 03/14/2022, Additional history existsPneumococcal 0-49 years EwratkiThyeexpcpted57/13/2020 Hepatitis A vaccineAged OutNo longer eligible based on patient's age to complete this topicHib vaccineAged OutNo longer eligible based on patient's age to complete this topicMeningococcal (ACWY) vaccineAged OutNo longer eligible based on patient's age to complete this topicMeningococcal B vaccineAged OutNo longer eligible based on patient's age to complete this topicPolio vaccineAged OutNo longer eligible based on patient's age to complete this topic Procedures Procedure NamePriorityDate/TimeAssociated DiagnosisCommentsGYN CYTOLOGYRoutine 07/12/2024 12:00 AM EDT MARGE SCREENING ZOUOLPAICSpzwdbb16/23/2020from Last 3 Months or Most Recently Relevant to Health Maintenance Results * 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 Satisfactory for evaluation. ? - Endocervical/transformation zone component present. Descriptive Diagnosis: ? Negative for intraepithelial lesion or malignancy. ?? 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 The Pap smear is a screening test primarily for squamous epithelial lesions, which is subject to both false negative and false positive results. Your patient should be reminded to consult you immediately if she experiences any suspicious signs or symptoms, regardless of her Pap smear result. GYNECOLOGIC CYTOLOGY REPORT Patient Name: TAMRA MARCOS [facility] Rec: [id number] [facility] ??[facility] ANATOMIC PATHOLOGY [address] [place] [address]. ??[place], [place] [address] [facility] LABSSpecimen (Source)Anatomical Location / LateralityCollection Method / VolumeCollection TimeReceived Time CERVICAL TUQZFOTT96/ 7:46 AM EDT Narrative Authorizing ProviderResult TypeResult StatusWekatia Yang MDPATHOLOGY/CYTOLOGY ORDERABLESFinal ResultPerforming OrganizationAddressCity/State/ZIP CodePhone Number [facility] [address] [place] [address], [facility] [phone] [facility] * MARGE Screening Bilateral (03/20/2020)Anatomical RegionLateralityModalityBreast BilateralMammography Narrative Authorizing ProviderResult TypeResult StatusHistorical Provider MDIMG MAMMOGRAPHY ORDERABLESFinal Result from Last 3 Months or Most Recently Relevant to Health Maintenance Insurance * Guarantor: Tamra Marcos TypeRelation to PatientDate of BirthPhone Billing AddressPersonal/VaomupYrvm33/13/1971 [address] [place] [phone] Care Teams Team MemberRelationshipSpecialtyStart Date Neymar Win MD [address] [phone] PCP - GeneralFamily Medicine01/16/16
--- OUTSIDE RECORDS SUMMARY | 2025-02-21 07:00 | XMS_ITS | Patient Health Record ---
Author Organization The [facility] in [place] Address [address] [place] [address] Care Team Providers Care Wardrobe Stylist Name Role Phone Orion Win Primary Care Provider [phone] AnaCamille dasilva Unavailable [phone] Allergies No Known Allergies Results Component Value Reference Range Notes UA DIP NONAUTO WO MICRO (810 02) - IN OFFICE Reviewed date:11/14/2024 02:43:57 PM Interpretation: Performing Lab: Notes/Report: COLOR orange CLARITYclearGLUCOSEnegBILIRUBINnegKETONEnegSPECIFIC GRAVITY1.544ZNUBJbiswfHS9 PROTEINtraceUROBILINOGENnegNITRITEnegLEUKOCYTE ESTERASElargeMM tomosynthesis diagnostic BI Reviewed date:02/24/2024 08:59:21 PM Interpretation: Performing Lab: Notes/Report: Source Facility: [place] [address] [place] [address] Mammography Report Signed Patient: KAROL MARCOS MR#: [id number] : 1970 Acct:[id number] Age/Sex: 53 / F ADM Date: 02/24/24 Loc: MAMMO Attending Dr: Neymar Win M.D. Ordering Physician: Neymar Win M.D. Results: Date of Service: 02/24/24 Follow Up: Procedure(s): MM tomosynthesis diagnostic BI Accession Number(s): [id number] cc: Neymar Win M.D. Patient Name: KAROL MARCOS MR#: [id number] : 1970 Exam Date: 02/24/2024 Ordering Doctor: DR Neymar Win . RADIOLOGY REPORT PROCEDURE: MM TOMOSYNTHESIS DIAGNOSTIC [...] prostate cancer at age 67. LOCATION: [facility] BREAST COMPOSITION: The breasts are heterogeneously dense,which [...] By: Tucker English M.D. Signed By: 02/24/24 1431 DD/ 30 TD/TT: Paid Internship:CT abdomen pelvis wo con Reviewed date:11/14/2024 02:43:57 PM Interpretation: Performing Lab: Notes/Report: Source Facility: [facility]-[address] [place] [address] [address] [address] Scan Report Signed Patient: KAROL MARCOS MR#: [id number] : 1970 Acct:[id number] Age/Sex: 54 / F ADM Date: 11/14/24 Loc: ER Attending Dr: Ordering Physician: Vee Ohara Date of Service: 11/14/24 Procedure(s): CT abdomen pelvis wo con Accession Number(s): [id number] cc: Neymar Win M.D. [place] [address] Patient Name: KAROL MARCOS MRN: [facility]:[id number] date: 1970 Sex: F Assigned Patient Location: ER Current Patient Location: ED.MAIN Accession/Order Number: [id number] Exam Date: 11/14/2024 08:09 Report Date: 11/14/2024 08:12 At the request of: VEE OHARA MD Procedure: CT abdomen pelvis wo con CT ABDOMEN AND PELVIS WITHOUT INTRAVENOUS CONTRAST: CLINICAL HISTORY: rt flank pain and hx of kidney stone COMPARISON: Abdominal x-ray 01/30/2024 TECHNIQUE: Spiral images were obtained through the abdomen and pelvis without intravenous contrast. This CT exam was performed using one or more following dose reduction techniques: Automated exposure control, adjustment of the mA and/or kV according to patient size, or use of iterative reconstruction technique. FINDINGS: Lung Bases: [Lung bases are clear] Organs:Right-sided hydronephrosis caused by a right ureteral pelvic junction calculus 5 mm x 7 mm in size. Right sided fat stranding adjacent the right renal pelvis. Left lower pole calculus, nonobstructive. Punctate right interpolar and upper pole calculi nonobstructive.. No left-sided hydronephrosis. Otherwise liver, gallbladder, spleen, adrenals, pancreas unremarkable.[ GI: Mild retained stool the colon. No bowel obstruction. Appendix unremarkable..[ Pelvis:[Bladder unremarkable. Uterus unremarkable. No adnexal Mass.] Peritoneum/Retroperitoneum:No free air or free fluid. Aorta mild plaque, nonaneurysmal. No bulky adenopathy.[ Abd wall/Bones:Degenerative change. No suspicious osseous lesion.[ CT/CT abdomen pelvis wo con IMPRESSION: 5 mm x 7 mm calculus right ureteral pelvic junction with adjacent haziness and hydronephrosis Additional bilateral calculi, nonobstructive. Impression dictated by: Kingsley Dawkins M.D. 11/14/2024 8:12 AM Dictation Location: [place] [address] Electronically authenticated by: [id number] Y Date: 11/14/2024 08:12 Dictated By: Kingsley Dawkins M.D. Signed By: 11/14/2415 DD/ 1 TD/TT: Paid Internship:[facility] - [facility] Reviewed date:11/16/2024 04:22:14 PM Interpretation: Performing Lab: Notes/Report: [facility] ,[facility] For [facility] Testing performed at [facility] O:ESCCOL Isolated Urine Culture - [facility] [place] Count Organism: 1.1 Antibiotic Interpretation BETH Status Urine Culture - [id number] [place] [address] Urine Culture - [facility] Testing performed at [facility] O:ESCCOL Isolated Urine Culture - [facility] [place] Count Organism: 1.1 Antibiotic Interpretation BETH Status Urine Culture [facility] For Report Urine [facility] Testing performed at [facility] O:ESCCOL Isolated Urine Culture - [facility] [place] Count Organism: 1.1 Antibiotic Interpretation BETH Status Urine Culture - [facility] For Report Urine [facility] Testing performed at [facility] O:ESCCOL Isolated Urine Culture - [facility] [place] Count Organism: 1.1 Antibiotic Interpretation BETH Status Urine Culture - [facility]>100,000 [facility]rine Culture - [facility] Testing performed at [facility] O:ESCCOL Isolated Urine Culture - [facility] [place] Count Organism: 1.1 Antibiotic Interpretation BETH Status Urine Culture - [facility] For Report Urine [facility] Testing performed at [facility] O:ESCCOL Isolated Urine Culture - [facility] [place] Count Organism: 1.1 Antibiotic Interpretation BETH Status Urine Culture - FRMCAmikacin S F Urine Culture - [facility] Testing performed at [facility] O:ESCCOL Isolated Urine Culture - [facility] [place] Count Organism: 1.1 Antibiotic Interpretation BETH Status Urine Culture - [facility]MCAmoxicillin/Clavulanate S F Urine Culture - [facility] Testing performed at [facility] O:ESCCOL Isolated Urine Culture - [facility] [place] Count Organism: 1.1 Antibiotic Interpretation BETH Status Urine Culture - [facility]CAmpicillin S F Urine Culture - [facility] Testing performed at [facility] O:ESCCOL Isolated Urine Culture - [facility] [place] Count Organism: 1.1 Antibiotic Interpretation BETH Status Urine Culture - [facility]CAztreonam S F Urine Culture - [facility] Testing performed at [facility] O:ESCCOL Isolated Urine Culture - [facility] [place] Count Organism: 1.1 Antibiotic Interpretation BETH Status Urine Culture - FRMCCeftazidime S F Urine Culture - [facility] Testing performed at [facility] O:ESCCOL Isolated Urine Culture - [facility] [place] Count Organism: 1.1 Antibiotic Interpretation BETH Status Urine Culture - FRMCCeftazidime/Avibactam S F Urine Culture - [facility] Testing performed at [facility] O:ESCCOL Isolated Urine Culture - [facility] [place] Count Organism: 1.1 Antibiotic Interpretation BETH Status Urine Culture - FRMCCeftolozane/Tazobactam S F Urine Culture - [facility] Testing performed at [facility] O:ESCCOL Isolated Urine Culture - [facility] [place] Count Organism: 1.1 Antibiotic Interpretation BETH Status Urine Culture - [facility]iprofloxacin S F Urine Culture - [facility] Testing performed at [facility] O:ESCCOL Isolated Urine Culture - [facility] [place] Count Organism: 1.1 Antibiotic Interpretation BETH Status Urine Culture - FR[facility]CErtapenem S F Urine Culture - [facility] Testing performed at [facility] O:ESCCOL Isolated Urine Culture - [facility] [place] Count Organism: 1.1 Antibiotic Interpretation BETH Status Urine Culture - FRMCGentamicin S F Urine Culture - [facility] Testing performed at [facility] O:ESCCOL Isolated Urine Culture - [facility] [place] Count Organism: 1.1 Antibiotic Interpretation BETH Status Urine Culture - FR[facility]CLevofloxacin S F Urine Culture - [facility] Testing performed at [facility] O:ESCCOL Isolated Urine Culture - [facility] [place] Count Organism: 1.1 Antibiotic Interpretation BETH Status Urine Culture - FR[facility]CMeropenem S F Urine Culture - [facility] Testing performed at [facility] O:ESCCOL Isolated Urine Culture - [facility] [place] Count Organism: 1.1 Antibiotic Interpretation BETH Status Urine Culture - FRMCMeropenem/Vaborbactam S F Urine Culture - [facility] Testing performed at [facility] O:ESCCOL Isolated Urine Culture - [facility] [place] Count Organism: 1.1 Antibiotic Interpretation BETH Status Urine Culture - FRMCNitrofurantoin S F Urine Culture - [facility] Testing performed at [facility] O:ESCCOL Isolated Urine Culture - [facility] [place] Count Organism: 1.1 Antibiotic Interpretation BETH Status Urine Culture - [facility]etracycline S F Urine Culture - [facility] Testing performed at [facility] O:ESCCOL Isolated Urine Culture - [facility] [place] Count Organism: 1.1 Antibiotic Interpretation BETH Status Urine Culture - FR[facility]CTigecycline S F Urine Culture - [facility] Testing performed at [facility] O:ESCCOL Isolated Urine Culture - [facility] [place] Count Organism: 1.1 Antibiotic Interpretation BETH Status Urine Culture - FR[facility]CTobramycin S F Urine Culture - [facility] Testing performed at [facility] O:ESCCOL Isolated Urine Culture - [facility] [place] Count Organism: 1.1 Antibiotic Interpretation BETH Status Urine Culture - [facility]CAmpicillin/Sulbactam S F Urine Culture [facility] Testing performed at [facility] O:ESCCOL Isolated Urine Culture - [facility] [place] Count Organism: 1.1 Antibiotic Interpretation BETH Status Urine Culture - FR[facility]CCefazolin S F Urine Culture - [facility] Testing performed at [facility] O:ESCCOL Isolated Urine Culture - [facility] [place] Count Organism: 1.1 Antibiotic Interpretation BETH Status Urine Culture - [facility]CCefepime S F Urine Culture - [facility] Testing performed at [facility] O:ESCCOL Isolated Urine Culture - [facility] [place] Count Organism: 1.1 Antibiotic Interpretation BETH Status Urine Culture - FRMCCeftriaxone S F Urine Culture - [facility] Testing performed at [facility] O:ESCCOL Isolated Urine Culture - [facility] [place] Count Organism: 1.1 Antibiotic Interpretation BETH Status Urine Culture - FRMCCefuroxime S F Urine Culture - [facility] Testing performed at [facility] O:ESCCOL Isolated Urine Culture - [facility] [place] Count Organism: 1.1 Antibiotic Interpretation BETH Status Urine Culture - FRMCPiperacillin/Tazobactam S F Urine Culture - [facility] Testing performed at [facility] O:ESCCOL Isolated Urine Culture - [facility] [place] Count Organism: 1.1 Antibiotic Interpretation BETH Status Urine Culture - [facility]CTrimethoprim/Sulfa S F Urine Culture - [facility] Testing performed at [facility] O:ESCCOL Isolated Urine Culture - [facility] [place] Count Organism: 1.1 Antibiotic Interpretation BETH Status Performing Lab:see note ML - [facility] LB SEE REPORT - Lead Advisor Id information not found for OBX-specific medical claims analyst legend URINE MICROSCOPIC ONLY Reviewed date:11/14/2024 02:43:57 PM Interpretation: Performing Lab: Notes/Report: [facility] ,WBC Adgvw33-19NNHI SEEN #/HPFRBC [id number] #/HPFBacteria UrineMODERATENONE SEEN #/HPFMucus UrineTRACENONE SEENSquamous Epithelial Cell UrineFEWNONE/RARE #/LPFTransitional Epi Cells UrineRARENONE SEEN #/LPFCrystals Seen?None SeenNone Seen #/HPFCast Seen?NONE SEENNONE SEEN #/LPFUrine Culture IndicatedYES-[facility] [place] Performing Lab:see noteML - [facility] LBUA (CLEAN or CATCH) HAND SIZER or MICRO IF IND. Reviewed date:11/14/2024 02:43:57 PM Interpretation: Performing Lab: Notes/Report: [facility] ,Color UrineLT. YELLOWYELLOWClarity UrineSL CLOUDYCLEARSpecific [place] Urine >=1.0301.005-1.025pH Urine6.05.0-9.0Protein Siuqh39QZH/TRACE mg/dLGlucose Urine UANEGATIVENEGATIVE mg/dLBilirubin UrineNEGATIVENEGATIVEKetones UrineNEGATIVE NEGATIVE mg/dLBlood UrineLARGENEGATIVENitrite UrineNEGATIVENEGATIVEUrobilinogen Urine0.20.2-1.0 EU/dLLeukocyte Esterase UrineMODERATENEGATIVEUrine Microscopic IndicatedYESPerforming Lab:see noteML - [facility] LBPROF 14(COMP METB) Reviewed date:11/14/2024 02:43:57 PM Interpretation: Performing Lab: Notes/Report: [facility] ,Mkmfjv331890-212 mmol/LPotassium3.83.5-5.1 mmol/BOqwyfskq65745-705 mmol/LCarbon Fcbzyol73.321.0-32.0 mmol/LAnion Gap14.4Hoyhbqo24850-452 mg/dLBlood Urea Figbcntg50.07.0-18.0 mg/dLCreatinine0.870.55-1.02 mg/dLEstimated GFR ( Jody>60>=60 mL/min/1.73m 2Estimated GFR (Non- Gosia>60>=60 mL/min/1.73m 2BUN Creatinine Ratio24.8Utdlski7.18.5-10.1 mg/dLBilirubin Total0.30.2-1.0 mg/dL Aspartate Amino Miekrgrcgyb8429-52 U/LAlanine Iqjyzbfwfemlyuum6806-29 U/L Alkaline Tinuluyoslg89585-130 U/LTotal Protein7.26.4-8.2 g/dLAlbumin Level3.3 3.4-5.0 g/dLGlobulin3.9Albumin Globulin Ratio0.8Performing Lab:see noteML - [facility] LBCBC AUTO DIFF Reviewed date:11/14/2024 02:43:57 PM Interpretation: Performing Lab: Notes/Report: [facility] ,White Blood Count10.74.0-11.0 10 3/uLRed Blood Count4.454.20-5.40 10 6/uL Tzkrlfwtaz21.912.0-16.0 g/zUEgoovrpedl78.736.0-48.0 %Mean Corpuscular Enomdb55.2 81.0-99.0 fLMean Corpuscular Vxutbpmerz28.026.7-34.0 pgMean Corpuscular HGB Conc 32.529.9-35.2 g/dLRed Cell Distribution Width13.811.0-15.0 %Platelet Vsbhp530 150-450 10 3/uLMean Platelet Volume9.09.5-13.5 fLNeutrophils Percent Auto81.4 43.0-75.0 %Lymphocytes Percent Auto13.420.5-60.0 %Monocytes Percent Auto2.61.7- 12.0 %Eosinophils Percent Auto1.70.9-7.0 %Basophils Percent Auto0.50.2-2.0 % Immature Granulocytes Pct Auto0.40.0-0.5 %Neutrophils Absolute Auto8.71.4-6.5 10 3/uLLymphocytes Absolute Auto1.41.2-3.8 10 3/uLMonocytes Absolute Auto0.30.3- 0.8 10 3/uLEosinophils Absolute Auto0.20.0-0.7 10 3/uLBasophils Absolute Auto0.1 0.0-0.1 10 3/uLImmature Granulocytes Abs Auto0.040.00-0.03 10 3/uLPerforming Lab:see noteML - [facility] Reason For Referral No Information Medications Medication SIG (Take, Route, Frequency, Duration) Notes Start Date End Date Status Cefdinir 300 MG 2 capsule Orally once a day; Dur ation: 10 days 5ActiveDiclofenac Sodium 75 MGTAKE 1 TABLET BY MOUTH TWICE A DAY; Duration: 30ActiveLiothyronine Sodium 5 MCGTAKE 1 TABLET BY MOUTH EVERY DAY ON EMPTY STOMACH FOR 30 DAYS; Duration: 90ActiveLevothyroxine Sodium 50 MCGTAKE 1 TABLET BY MOUTH EVERY DAY; Duration: 90ActiveDicyclomine HCl 20 MGTAKE 1 TABLET BY MOUTH TWICE A DAY; Duration: 90ActivePyridium 200 MG1 tablet after meals Orally Three times a day; Duration: 2 days5ActiveLisinopril 20 MGTAKE 1 TABLET BY MOUTH EVERY DAY FOR 30 DAYS; Duration: 90ActiveCVS Esomeprazole Magnesium 20 MGTAKE 2 CAP Orally Once a day; Duration: 21 daysActive Social History Tobacco Use: Social History Observation Description Date Details (start date - stop date) Never Smoker NA - NA Tobacco Use/Smoking Question Answer Notes Patient is a nonsmoker Alcohol Screen (Audit-C) Question Answer Notes Did you have a drink containing alcohol in the p ast year? Yes How often did you have 6 or more drinks on one occasion in the past year?Never (0 point)How many drinks did you have on a typical day when you were drinking in the past year?1 or 2 drinks (0 point)How often did you have a drink containing alcohol in the past year?Less than monthly (1 point)Fukhmf3Eudkubofethmls NegativeAUDIT-C (Standard) Question Answer Notes Did you have a drink containing alcohol in the p ast year? No Vbtbmn1NhwfstainlzbixUshkroxp Problems Problem Type SNOMED Code ICD Code Onset Dates Problem Status W/U Status Risk Notes Problem Low back pain (380097519) Low back pain ( M54.5) ActiveconfirmedProblemHypothyroidism (49770479)Hypothyroidism, unspecified (E03.9)ActiveconfirmedProblemChronic pain (06880362)Other chronic pain (G89.29) ActiveconfirmedProblemOsteoarthritis of knee (545688252)Unilateral primary osteoarthritis, left knee (M17.12)ActiveconfirmedProblemAcute tear of medial meniscus of left knee (disorder) (81331042675050206)Complex tear of medial meniscus, current injury, left knee, initial encounter (S83.232A)Activeconfirmed ProblemChest pain (22108760)Chest pain (R07.9)ActiveconfirmedProblemHypertension (21263778)Hypertension (I10)ActiveconfirmedProblemEczema (11417094)Eczema (L30.9)ActiveconfirmedProblemThyroid nodule (966322139)Thyroid nodule (E04.1) ActiveconfirmedProblemWell adult (543805428)Well adult (Z00.00)Activeconfirmed ProblemSeasonal allergic rhinitis (929342616)Seasonal allergic rhinitis (J30.2) ActiveconfirmedProblemChest wall pain (840084588)Chest wall pain (R07.89)Active confirmedProblemMultinodular goiter (976274939)Multinodular goiter (E04.2)Active confirmedProblemDiverticula of intestine (80357090)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)ActiveconfirmedProblemRenal cyst (808045236)Renal cyst (N28.1)Active confirmedProblemGastric reflux (822422109)Gastric reflux (K21.9)Activeconfirmed Vital Signs Temperature 98.1 degrees Fahrenheit 06/24/2024 Blood pressure afsthqwmy68 mm Hg06/24/20249570Jhukri26 in06/24/2024lood pressure dkuotuay520 mm Hg06/24/20245402Ivojnp496.4 lbs06/24/2024BMI40 kg/m206/24/2024 Encounters Encounter Location Date Provider Diagnosis [facility] [address] [place] [address] 06/24/2024 Orion Hoy Right flank pain R10 .9 ; UTI (urinary tract infection), uncomplicated N39.0 and Dysuria R30.0 [facility] [address] [place] [address] 02/24/2024 Camille Ana [facility] [place] [address] [facility] [facility] [place] [address]/22/2025Dodario Win Assessments Encounter Date Diagnosis (ICD Code) Assessment Notes Treatment Notes Treatment Clinical Notes Section Notes 06/24/2024 Right flank pain (ICD-10 - R10.9 ) 06/24/2024UTI (urinary tract infection), uncomplicated (ICD-10 - N39.0)Drink plenty of water. Avoid drinks like coffee, alcohol and soft frinks, as these can irritate your bladder and aggravate your frequent or urgent need to urinate. Apply a warm heating pad to your abdomen to minimize bladder pressure or discomfort. You have been prescribed antibiotics for a urinarytract infection. Antibiotics may bother your stomach, so try taking them with a light meal (unless instructed otherwise by your pharmacist). It is important to take them until they are finished. You can use hywn-kwj-djpvnni acetaminophen or ibuprofen if needed for pain. You should follow up with your Primary Care Physician or return to clinic if not improving in the next 3-5 days.06/24/2024Dysuria (ICD-10 - R30.0) Plan Of Treatment Pending Test Test Name Order Date CMP (COMPLETE METABOLIC PANEL) 4 CMP (COMPLETE METABOLIC PANEL) 3 HEMOGLOBIN A1C (GLYCO) 09/06/2022 HEMOGLOBIN A1C (GLYCO) 09/01/2023 LIPID PANEL (CHOL/TRIG/HDL/LDL) 09/01/19 24 LIPID PANEL (CHOL/TRIG/HDL/LDL) 09/07/19 23 CBC WITH DIFF 09/06/2022 CBC WITH DIFF 09/01/2023 XR Knee LT (3 views) * 11/15/2022 ECG with Interpretation 11/21/2023 T3 FREE, T4 FREE and TSH 09/02/2023 Insulin Level 09/01/2023 Treadmill Stress Test with [...] Date MMO [employer] [address] [place] [address] [id number] Corey Marcos Spouse - patient is the spouse of the insured Medical (General) History Medical History History ICD Code Chest pain R07.9 Diverticula of intestine K57.30 Eczema L30.9 Gastric reflux K21.9 Multinodular goiter E04.2 Low back pain M54.5 Renal cyst N28.1 Seasonal allergic rhinitis J30.2 Thyroid nodule E04.1 Pyelonephritis N12 Kidney calculi N20.0 Surgical History Surgery Date(Month/Year) Lithotripsy EGD/Colonoscopy08/26/2018Cystoscopy with stent removal
--- OUTSIDE RECORDS SUMMARY | 2025-02-21 07:00 | XMS_ITS | Clinical Summary ---
Author Organization [facility] Address [address] [place] [address] Care Team Providers Care Amplifier Mechanic Name Role Phone Unavailable Primary Care Provider Unavailabl e Social History Tobacco UseTypesPacks/DayYears UsedDateSmoking Tobacco: Never Assessed CommentsUnknownSex and Gender InformationValueDate RecordedSex Assigned at Not on fileLegal OmgEwrgim58/15/2023 7:26 PM EDTGender IdentityNot on fileSexual OrientationNot on file Last Filed Vital Signs Vital SignReadingTime TakenCommentsBlood Cnrbhdug722/78005/29/2022 12:00 PM EST Pulse--Temperature--Respiratory Rate--Oxygen Saturation--Inhaled Oxygen Concentration--Jmumml865 kg (233 lb)05/29/2022 12:00 PM APKZfouti547.6 cm (5' 6 )05/29/2022 12:00 PM ESTBody Mass Index37.61005/29/2022 12:00 PM EST Plan of Treatment Not on file Insurance
--- NOTE | 2025-02-21 07:14 | US_ITS ---
The [address] [address] Patient Name: KAROL MARCOS MRN: [id number] date: 1970 Sex: F Assigned Patient Location: US Current Patient Location: US Accession/Order Number: [id number] Exam Date: 02/21/2025 07:15 Report Date: 02/21/2025 08:25 At the request of: NANCY PETTIT MD Procedure: US renal BI BILATERAL RENAL AND BLADDER ULTRASOUND CLINICAL HISTORY: Kidney stones COMPARISON: CT 11/14/2024 Estimation of renal size is approximately 10.5 cm on the right and 10.4 cm on the left. There is an echogenic focus with twinkle artifact at the mid pole on the right measuring 5 mm suggesting a stone. A suspected stone is also present at the superior pole on the left entering 6 mm. There is an additional potential 7 mm stone at the lower pole on that side. No hydronephrosis is identified. No renal mass lesions were imaged. There is no perinephric fluid. The urinary bladder is partially distended with a volume of 173 mL. No contour or intraluminal abnormalities are seen. US/US renal BI IMPRESSION: BILATERAL NEPHROLITHIASIS. NO OBSTRUCTIVE UROPATHY. Impression dictated by: Danni Cisneros M.D. 02/21/2025 8:25 AM Dictation Location: [place] [address] Electronically authenticated by: [id number] Y Date: 02/21/2025 08:25
--- NOTE | 2025-02-21 07:15 | XR_ITS ---
The [place] [id number] Patient Name: KAROL MARCOS MRN: [id number] date: 1970 Sex: F Assigned Patient Location: US Current Patient Location: US Accession/Order Number: [id number] Exam Date: 02/21/2025 07:38 Report Date: 02/21/2025 08:27 At the request of: NANCY PETTIT MD Procedure: XR abdomen 1V SINGLE VIEW ABDOMEN COMPARISON: 01/30/2024 CT 11/14/2024 CLINICAL DATA: Follow-up kidney stones. Supine views of the abdomen and pelvis were obtained. Mild air and stool within the colon. No dilated small bowel loops are seen. There is a small amount of air at the stomach. No soft tissue masses are visualized. No definite radiopaque renal stones are seen. The bony structures are intact. XR/XR abdomen 1V IMPRESSION: NO OBVIOUS RADIOPAQUE STONES. Impression dictated by: Danni Cisneros M.D. 02/21/2025 8:27 AM Dictation Location: [place] [address] Electronically authenticated by: [id number] Y Date: 02/21/2025 08:27
== END 2025-02-21 06:55 | disposition home or self-care (01) ==
LOC: US 06:55
PROVIDERS: PCP Family Medicine; Visit Provider Student in an Organized Health Care Education/Training Program
DX: N20.0 Calculus of kidney (principal)
CPT/HCPCS: 74018; 76775

== ENCOUNTER 2025-03-11 10:51 | Outpatient (OUT) | payer OTHER, SELFPAY ==
--- OUTSIDE RECORDS SUMMARY | 2025-03-11 10:55 | XMS_ITS | Patient Health Record ---
Author Organization [facility] in [place] Address [address] [place] [address] Care Team Providers Care Msws Name Role Phone Orion Win Primary Care Provider Allergies No Known Allergies Results Component Value Reference Range Notes CBC AUTO DIFF Reviewed date:11/14/2024 02:43:57 PM Interpretation: Performing Lab: Notes/Report: [facility] , White Blood Count 10.7 4.0-11.0 10 3/uL Red Blood Count4.454.20-5.40 10 6/aOHlwevwhash78.912.0-16.0 g/cAUlcdjlwdhw36.7 36.0-48.0 %Mean Corpuscular Bwegqg44.281.0-99.0 fLMean Corpuscular Hemoglobin 29.026.7-34.0 pgMean Corpuscular HGB Conc32.529.9-35.2 g/dLRed Cell Distribution Width13.811.0-15.0 %Platelet Nzcdj197504-702 10 3/uLMean Platelet Volume9.09.5- 13.5 fLNeutrophils Percent Auto81.443.0-75.0 %Lymphocytes Percent Auto13.420.5- 60.0 %Monocytes Percent Auto2.61.7-12.0 %Eosinophils Percent Auto1.70.9-7.0 % Basophils Percent Auto0.50.2-2.0 %Immature Granulocytes Pct Auto0.40.0-0.5 % Neutrophils Absolute Auto8.71.4-6.5 10 3/uLLymphocytes Absolute Auto1.41.2-3.8 10 3/uLMonocytes Absolute Auto0.30.3-0.8 10 3/uLEosinophils Absolute Auto0.20.0- 0.7 10 3/uLBasophils Absolute Auto0.10.0-0.1 10 3/uLImmature Granulocytes Abs Auto0.040.00-0.03 10 3/uLPerforming Lab:see noteML - [facility] LB PROF 14(COMP METB) Reviewed date:11/14/2024 02:43:57 PM Interpretation: Performing Lab: Notes/Report: [facility] ,Cqaybs288092-871 mmol/LPotassium3.83.5-5.1 mmol/ALvhxymvj27484-975 mmol/LCarbon Lmkofry28.321.0-32.0 mmol/LAnion Gap14.2Cezlknh96394-066 mg/dLBlood Urea Nfglolio78.07.0-18.0 mg/dLCreatinine0.870.55-1.02 mg/dLEstimated GFR ( Jody>60>=60 mL/min/1.73m 2Estimated GFR (Non- Gosia>60>=60 mL/min/1.73m 2BUN Creatinine Ratio24.2Tvdrjng1.18.5-10.1 mg/dLBilirubin Total0.30.2-1.0 mg/dL Aspartate Amino Lvsubmbgnuv2952-58 U/LAlanine Aspesdlqqnvnpgqv0668-40 U/L Alkaline Iexxrdzwjmr71847-231 U/LTotal Protein7.26.4-8.2 g/dLAlbumin Level3.3 3.4-5.0 g/dLGlobulin3.9Albumin Globulin Ratio0.8Performing Lab:see noteML - [facility] LBUA (CLEAN or CATCH) OPTIMIZATION CONSULTANT or MICRO IF IND. Reviewed date:11/14/2024 02:43:57 PM Interpretation: Performing Lab: Notes/Report: [facility] ,Color UrineLT. YELLOWYELLOWClarity UrineSL CLOUDYCLEARSpecific [place] Urine >=1.0301.005-1.025pH Urine6.05.0-9.0Protein Avfia42CMA/TRACE mg/dLGlucose Urine UANEGATIVENEGATIVE mg/dLBilirubin UrineNEGATIVENEGATIVEKetones UrineNEGATIVE NEGATIVE mg/dLBlood UrineLARGENEGATIVENitrite UrineNEGATIVENEGATIVEUrobilinogen Urine0.20.2-1.0 EU/dLLeukocyte Esterase UrineMODERATENEGATIVEUrine Microscopic IndicatedYESPerforming Lab:see noteML - [facility] LBURINE MICROSCOPIC ONLY Reviewed date:11/14/2024 02:43:57 PM Interpretation: Performing Lab: Notes/Report: [facility] ,WBC Zizpz33-11ZCUZ SEEN #/HPFRBC Awrap45-839-3 #/HPFBacteria UrineMODERATENONE SEEN #/HPFMucus UrineTRACENONE SEENSquamous Epithelial Cell UrineFEWNONE/RARE #/LPFTransitional Epi Cells UrineRARENONE SEEN #/LPFCrystals Seen?None SeenNone Seen #/HPFCast Seen?NONE SEENNONE SEEN #/LPFUrine Culture IndicatedYES[place] [place] Performing Lab:see noteML - [facility] LBUrine Culture - [facility] Reviewed date:11/16/2024 04:22:14 PM Interpretation: Performing Lab: Notes/Report: [facility] ,Urine Culture - [facility]See Below For Report Organism: 1.1 [place] Count Testing performed at [facility] Isolated Urine Culture - FR Antibiotic Interpretation BETH Status Urine Culture - [facility] O:ESCCOL Urine Culture - [id number] [place] [address] Organism: 1.1 [place] Count Testing performed at [facility] Isolated Urine Culture - [facility] Antibiotic Interpretation BETH Status Urine Culture - [facility] O:ESCCOL Urine Culture - FRMCSee Below For Report Organism: 1.1 [place] Count Testing performed at [facility] Isolated Urine Culture - [facility] Antibiotic Interpretation BETH Status Urine Culture - [facility] O:ESCCOL Urine Culture - FRMCSee Below For Report Organism: 1.1 [place] Count Testing performed at [facility] Isolated Urine Culture - [facility] Antibiotic Interpretation BETH Status Urine Culture - [facility] O:ESCCOL Urine Culture - [facility]>100,000 Organism: 1.1 [place] Count Testing performed at [facility] Isolated Urine Culture - [facility] Antibiotic Interpretation BETH Status Urine Culture - [facility] O:ESCCOL Urine Culture - FRMCSee Below For Report Organism: 1.1 [place] Count Testing performed at [facility] Isolated Urine Culture - [facility] Antibiotic Interpretation BETH Status Urine Culture - FR O:ESCCOL Urine Culture - FRMCAmikacin S F Organism: 1.1 [place] Count Testing performed at [facility] Isolated Urine Culture - FR Antibiotic Interpretation BETH Status Urine Culture - FR O:ESCCOL Urine Culture - FRMCAmoxicillin/Clavulanate S F Organism: 1.1 [place] Count Testing performed at [facility] Isolated Urine Culture - FR Antibiotic Interpretation BETH Status Urine Culture - FR O:ESCCOL Urine Culture - FRMCAmpicillin S F Organism: 1.1 [place] Count Testing performed at [facility] Isolated Urine Culture [place] [facility] [place] Antibiotic Interpretation BETH Status Urine Culture - FR O:ESCCOL Urine Culture - FRMCAztreonam S F Organism: 1.1 [place] Count Testing performed at [facility] Isolated Urine Culture - FR Antibiotic Interpretation BETH Status Urine Culture - FR O:ESCCOL Urine Culture - FRMCCeftazidime S F Organism: 1.1 [place] Count Testing performed at [facility] Isolated Urine Culture [place] [facility] [place] Antibiotic Interpretation BETH Status Urine Culture - FR O:ESCCOL Urine Culture - FRMCCeftazidime/Avibactam S F Organism: 1.1 [place] Count Testing performed at [facility] Isolated Urine Culture [place] [facility] [place]iotic Interpretation BETH Status Urine Culture - FR O:ESCCOL Urine Culture - FRMCCeftolozane/Tazobactam S F Organism: 1.1 [place] Count Testing performed at [facility] Isolated Urine Culture - [facility] [place] Antibiotic Interpretation BETH Status Urine Culture - FR O:ESCCOL Urine Culture - FRMCCiprofloxacin S F Organism: 1.1 [place] Count Testing performed at [facility] Isolated Urine Culture - FR Antibiotic Interpretation BETH Status Urine Culture - FR O:ESCCOL Urine Culture - FRMCErtapenem S F Organism: 1.1 [place] Count Testing performed at [facility] Isolated Urine Culture - [facility] [place] Antibiotic Interpretation BETH Status Urine Culture - FR O:ESCCOL Urine Culture - FRMCGentamicin S F Organism: 1.1 [place] Count Testing performed at [facility] Isolated Urine Culture - FR Antibiotic Interpretation BETH Status Urine Culture - FR O:ESCCOL Urine Culture - FRMCLevofloxacin S F Organism: 1.1 [place] Count Testing performed at [facility] Isolated Urine Culture - FR Antibiotic Interpretation BETH Status Urine Culture - FR O:ESCCOL Urine Culture - FRMCMeropenem S F Organism: 1.1 [place] Count Testing performed at [facility] Isolated Urine Culture - FR Antibiotic Interpretation BETH Status Urine Culture - FR O:ESCCOL Urine Culture - FRMCMeropenem/Vaborbactam S F Organism: 1.1 [place] Count Testing performed at [facility] Isolated Urine Culture - FR Antibiotic Interpretation BETH Status Urine Culture - FR O:ESCCOL Urine Culture - FRMCNitrofurantoin S F Organism: 1.1 [place] Count Testing performed at [facility] Isolated Urine Culture - FR Antibiotic Interpretation BETH Status Urine Culture - FR O:ESCCOL Urine Culture - FRMCTetracycline S F Organism: 1.1 [place] Count Testing performed at [facility] Isolated Urine Culture - FR Antibiotic Interpretation BETH Status Urine Culture - FR O:ESCCOL Urine Culture - FRMCTigecycline S F Organism: 1.1 [place] Count Testing performed at [facility] Isolated Urine Culture - FR Antibiotic Interpretation BETH Status Urine Culture - FR O:ESCCOL Urine Culture - FRMCTobramycin S F Organism: 1.1 [place] Count Testing performed at [facility] Isolated Urine Culture - FR Antibiotic Interpretation BETH Status Urine Culture - FR O:ESCCOL Urine Culture - FRMCAmpicillin/Sulbactam S F Organism: 1.1 [place] Count Testing performed at [facility] Isolated Urine Culture - FR Antibiotic Interpretation BETH Status Urine Culture - FR O:ESCCOL Urine Culture - FRMCCefazolin S F Organism: 1.1 [place] Count Testing performed at [facility] Isolated Urine Culture - FR Antibiotic Interpretation BETH Status Urine Culture - FR O:ESCCOL Urine Culture - FRMCCefepime S F Organism: 1.1 [place] Count Testing performed at [facility] Isolated Urine Culture - FR Antibiotic Interpretation BETH Status Urine Culture - FR O:ESCCOL Urine Culture - FRMCCeftriaxone S F Organism: 1.1 [place] Count Testing performed at [facility] Isolated Urine Culture - FR Antibiotic Interpretation BETH Status Urine Culture - FR O:ESCCOL Urine Culture - FRMCCefuroxime S F Organism: 1.1 [place] Count Testing performed at [facility] Isolated Urine Culture - [facility] Antibiotic Interpretation BETH Status Urine Culture - [facility] O:ESCCOL Urine Culture - FRMCPiperacillin/Tazobactam S F Organism: 1.1 [place] Count Testing performed at [facility] Isolated Urine Culture - [facility] Antibiotic Interpretation BETH Status Urine Culture - [facility] O:ESCCOL Urine Culture - FRMCTrimethoprim/Sulfa S F Organism: 1.1 [place] Count Testing performed at [facility] Isolated Urine Culture - FR Antibiotic Interpretation BETH Status Urine Culture - [facility] O:ESCCOL Performing Lab:see note SEE REPORT - Plant Senior Manager Id information not found for OBX-specific agent producer legend ML - [facility] LB CT abdomen pelvis wo con Reviewed date:11/14/2024 02:43:57 PM Interpretation: Performing Lab: Notes/Report: Source Facility: [place] [address] CT Scan Report Signed Patient: KAROL MARCOS MR#: [id number] : 1970 Acct:[id number] Age/Sex: 54 / F ADM Date: 11/14/24 Loc: ER Attending Dr: Ordering Physician: Vee Ohara Date of Service: 11/14/24 Procedure(s): CT abdomen pelvis wo con Accession Number(s): [id number] cc: Neymar Win M.D. [place] [address] Patient Name: KAROL MARCOS MRN: [facility]:[id number] date: 1970 Sex: F Assigned Patient Location: ER Current Patient Location: ED.MAIN Accession/Order Number: [id number] Exam Date: 11/14/2024 08:09 Report Date: 11/14/2024 [...] Dawkins M.D. 11/14/2024 8:12 AM Dictation Location: [place] [address] Electronically authenticated by: [id number] Y Date: 11/14/2024 08:12 Dictated By: Kingsley Dawkins M.D. Signed By: 11/14/2415 DD/ 1 TD/TT: Supervisor Rolling Room:SAIRA WAGNER ([id number]) - IN OFFICE Reviewed date:11/14/2024 02:43:57 PM Interpretation: Performing Lab: Notes/Report: COLORorangeCLARITYclearGLUCOSEnegBILIRUBINnegKETONEnegSPECIFIC GRAVITY1.005BLOOD tpmeaOU5ISVDNUEqstpzHURELPZJTTDGlkrLWCBBZQzktEBAKGWRJB ESTERASElargeUS renal BI Reviewed date:02/21/2025 07:15:11 PM Interpretation: Performing Lab: Notes/Report: Source Facility: [facility]-[address] [place] [address] [place] [address] Ultrasound Report Signed Patient: KAROL MARCOS MR#: [id number] : 1970 Acct:[id number] Age/Sex: 54 / F ADM Date: 02/21/25 Loc: US Attending Dr: Waldemar Pettit M.D. Ordering Physician: Waldemar Pettit M.D. Date of Service: 02/21/25 Procedure(s): US renal BI Accession Number(s): [id number] cc: Neymar Win M.D.; Waldemar Pettit M.D. [place] [address] Patient Name: KAROL MARCOS MRN: [facility]:[id number] date: 1970 Sex: F Assigned Patient Location: Current Patient Location: US Accession/Order Number: [id number] Exam Date: 02/21/2025 07:15 Report Date: 02/21/2025 08:25 At the request of: WALDEMAR PETTIT MD Procedure: US renal BI BILATERAL RENAL AND BLADDER ULTRASOUND CLINICAL HISTORY: Kidney stones COMPARISON: CT 11/14/2024 Estimation of renal size is approximately 10.5 cm on the right and 10.4 cm on the left. There is an echogenic focus with twinkle artifact at the mid pole on the right measuring 5 mm suggesting a stone. A suspected stone is also present at the superior pole on the left entering 6 mm. There is an additional potential 7 mm stone at the lower pole on that side. No hydronephrosis is identified. No renal mass lesions were imaged. There is no perinephric fluid. The urinary bladder is partially distended with a volume of 173 mL. No contour or intraluminal abnormalities are seen. US/US renal BI IMPRESSION: BILATERAL NEPHROLITHIASIS. NO OBSTRUCTIVE UROPATHY. Impression dictated by: Danni Cisneros M.D. 02/21/2025 8:25 AM Dictation Location: [place] [address] Electronically authenticated by: [id number] Y Date: 02/21/2025 08:25 Dictated By: Danni Cisneros M.D. Signed By: 02/21/25827 DD/ 4 TD/TT: Supervisor Rolling Room:XR abdomen 1V Reviewed date:02/21/2025 07:15:11 PM Interpretation: Performing Lab: Notes/Report: Source Facility: [place] [address] XRay Report Signed Patient: KAROL MARCOS MR#: [id number] : 1970 Acct:[id number] Age/Sex: 54 / F ADM Date: 02/21/25 Loc: US Attending Dr: Waldemar Pettit M.D. Ordering Physician: Waldemar Pettit M.D. Date of Service: 02/21/25 Procedure(s): XR abdomen 1V Accession Number(s): [id number] cc: Neymar Win M.D.; Waldemar Pettit M.D. [place] [address] Patient Name: KAROL MARCOS MRN: [id number] date: 1970 Sex: F Assigned Patient Location: Current Patient Location: US Accession/Order Number: [id number] Exam Date: 02/21/2025 07:38 Report Date: 02/21/2025 08:27 At the request of: WALDEMAR PETTIT MD Procedure: XR abdomen 1V SINGLE VIEW ABDOMEN COMPARISON: 01/30/2024 CT 11/14/2024 CLINICAL DATA: Follow-up kidney stones. Supine views of the abdomen and pelvis were obtained. Mild air and stool within the colon. No dilated small bowel loops are seen. There is a small amount of air at the stomach. No soft tissue masses are visualized. No definite radiopaque renal stones are seen. The bony structures are intact. XR/XR abdomen 1V IMPRESSION: NO OBVIOUS RADIOPAQUE STONES. Impression dictated by: Danni Cisneros M.D. 02/21/2025 8:27 AM Dictation Location: [place] [address] Electronically authenticated by: [id number] Y Date: 02/21/2025 08:27 Dictated By: Danni Cisneros M.D. Signed By: 02/21/25829 DD/ 6 TD/TT: Supervisor Rolling Room: Reason For Referral No Information Medications Medication SIG (Take, Route, Frequency, Duration) Notes Start Date End Date Status Levothyroxine Sodium 50 MCG TAKE 1 TABLET BY SUSAN TH EVERY DAY; Duration: 90 ActiveLiothyronine Sodium 5 MCGTAKE 1 TABLET BY MOUTH EVERY DAY ON EMPTY STOMACH FOR 30 DAYS; Duration: 90ActiveCVS Esomeprazole Magnesium 20 MGTAKE 2 CAP Orally Once a day; Duration: 21 daysActiveDiclofenac Sodium 75 MGTAKE 1 TABLET BY MOUTH TWICE A DAY; Duration: 30ActiveDicyclomine HCl 20 MGTAKE 1 TABLET BY MOUTH TWICE A DAY; Duration: 90ActiveLisinopril 40 MG1 tablet Orally daily; Duration: 90 daysActiveMupirocin 2 %1 application Externally Twice a day; Duration: 5 days5Active Social History Tobacco Use: Social History Observation [...] in the past year?Less than monthly (1 point)Dmvskn6Jnahrbvpecyqjg NegativeAUDIT-C (Standard) Question Answer Notes Did you have a drink containing alcohol in the p ast year? No Ljcznl5BdouvfhdswxgjxTubnsylo Problems Problem Type SNOMED Code ICD Code Onset Dates Problem Status W/U Status Risk Notes Problem Low back pain (694211601) Low back pain ( M54.5) ActiveconfirmedProblemHypothyroidism (24956395)Hypothyroidism, unspecified (E03.9)ActiveconfirmedProblemChronic pain (04850952)Other chronic pain (G89.29) ActiveconfirmedProblemOsteoarthritis of knee (116683594)Unilateral primary osteoarthritis, left knee (M17.12)ActiveconfirmedProblemAcute tear of medial meniscus of left knee (disorder) (57619794355808698)Complex tear of medial meniscus, current injury, left knee, initial encounter (S83.232A)Activeconfirmed ProblemChest pain (28040913)Chest pain (R07.9)ActiveconfirmedProblemHypertension (48535461)Hypertension (I10)ActiveconfirmedProblemEczema (55699336)Eczema (L30.9)ActiveconfirmedProblemOsteoarthritis of knee (376639533)Knee osteoarthritis (M17.9)ActiveconfirmedProblemThyroid nodule (020377068)Thyroid nodule (E04.1)ActiveconfirmedProblemWell adult (308201992)Well adult (Z00.00) ActiveconfirmedProblemSeasonal allergic rhinitis (547954646)Seasonal allergic rhinitis (J30.2)ActiveconfirmedProblemChest wall pain (653792219)Chest wall pain (R07.89)ActiveconfirmedProblemMultinodular goiter (707386233)Multinodular goiter (E04.2)ActiveconfirmedProblemDiverticula of intestine (69876114) 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)ActiveconfirmedProblemRenal cyst (568818485) Renal cyst (N28.1)ActiveconfirmedProblemGastric reflux (930256158)Gastric reflux (K21.9)Activeconfirmed Vital Signs Temperature 98.1 degrees Fahrenheit 06/24/2024 Blood pressure tlkyyeaae87 mm Hg03/11/20253879Qvduos08 in03/11/2025lood pressure iekhkran512 mm Hg03/11/20251784Mpwnja019.4 lbs105/11/2024BMI39.67 kg/m203/11/2025 Encounters Encounter Location Date Provider Diagnosis [facility] [address] [place] [address] 03/11/2025 Orion Hoy Well adult Z00.00 ; Knee osteoarthritis M17.9 and Hypertension I10 [facility] [address] [place] [address] 06/24/2024 Orion Hoy Right flank pain R10 .9 ; UTI (urinary tract infection), uncomplicated N39.0 and Dysuria R30.0 [facility] [address] [place] [address] 11/14/2024 Orion Win [facility] [place] [address] 11/16/2024Dodario Win Assessments Encounter Date Diagnosis (ICD Code) Assessment Notes Treatment Notes Treatment Clinical Notes Section Notes 06/24/2024 Right flank pain (ICD-10 - R10.9 ) 03/11/2025Well adult (ICD-10 - Z00.00)03/11/2025Knee osteoarthritis (ICD-10 - M17.9)knee injetions today03/11/2025Hypertension (ICD-10 - I10)06/24/2024UTI (urinary tract infection), uncomplicated (ICD-10 - N39.0)Drink [...] until they are finished. You can use uouk-eje-ugrpjea acetaminophen or ibuprofen if needed for pain. You should follow up with your Primary Care Physician or return to clinic if not improving in the next 3-5 days.06/24/2024Dysuria (ICD-10 - R30.0) Plan Of Treatment Pending Test Test Name Order Date CMP (COMPLETE METABOLIC PANEL) 4 CMP (COMPLETE METABOLIC PANEL) 3 HEMOGLOBIN A1C (GLYCO) 09/06/2022 HEMOGLOBIN A1C (GLYCO) 09/01/2023 HEMOGLOBIN A1C (GLYCO) 03/11/2025 IRON, TOTAL 03/11/2025 LIPID PANEL (CHOL/TRIG/HDL/LDL) 03/11/20 25 LIPID PANEL (CHOL/TRIG/HDL/LDL) 09/01/19 24 LIPID PANEL (CHOL/TRIG/HDL/LDL) 09/07/19 23 CBC WITH DIFF 09/06/2022 CBC WITH DIFF 09/01/2023 XR Knee LT (3 views) * 11/15/2022 ECG with Interpretation 11/21/2023 T3 FREE, T4 FREE and TSH 09/02/2023 Insulin Level 03/11/2025 Insulin Level 09/01/2023 Treadmill Stress Test with Nuclear Imagi ng 11/21/2023 STOOL OCCULT BLOOD 09/01/2023 STOOL OCCULT BLOOD 09/06/2022 MAMM DIAG UNILAT RT KIRK 3D GLOBAL 05/13 MRI KNEE LT WO CON 11/15/2022 XR CHEST 2 V 02/11/2024 THYROID PANEL (T4/TSH/FREE T3) 3 THYROID PANEL (T4/TSH/FREE T3) 4 THYROID PANEL (T4/TSH/FREE T3) 5 MG MAMM DIAGNOSTIC 3D ANN-MARIE CAD 02/17/2024 BI US BREAST COMPLETE LEFT 02/11/2024 CMP (COMP MET FONSECA) w/eGFR CKD-EPI 2024 CBC WITH DIFF 03/11/2025 Insurance Providers Payer Name Payer Address Payer Phone Subscriber Number Group Number Insured Name Patient Relationship to Insured Coverage Start Date Coverage End Date MMO [employer] [address] [place] [phone] [id number] Corey Marcos Spouse - patient is the spouse of the insured Medical (General) History Medical History History ICD Code Chest pain R07.9 Diverticula of intestine K57.30 Eczema L30.9 Gastric reflux K21.9 Multinodular goiter E04.2 Low back pain M54.5 Renal cyst N28.1 Seasonal allergic rhinitis J30.2 Thyroid nodule E04.1 Pyelonephritis N12 Kidney calculi N20.0 Surgical History Surgery Date(Month/Year) Lithotripsy 01/20 EGD/Colonoscopy 08/26/2018 Lithotripsy Cystoscopy with stent removal
--- OUTSIDE RECORDS SUMMARY | 2025-03-11 10:55 | XMS_ITS | Clinical Summary ---
Author Organization [facility] Address [address], [address] [place] [address] Care Team Providers Care Senior Hadoop Developer Name Role Phone Neymar Win MD Primary Care Provider [phone] Allergies No known active allergies Medications MedicationSigDispense QuantityRefillsLast FilledStart DateEnd DateStatus dicyclomine (BENTYL) 20 MG tablet TAKE 1 TABLET BY MOUTH 3 TIMES A DAY BEFORE SYFUG38312/27/2018Active levothyroxine (SYNTHROID) 50 MCG tablet TAKE 1 TABLET BY MOUTH EVERY [id number] [facility] ESOMEPRAZOLE MAGNESIUM 20 MG delayed release [...] DILUTE for use, (age 12 y+)08/12/2020,07/15/2020Influenza Virus Qujgzcd6902/08/2021,05/03/2020 Influenza, FLUCELVAX, (age 6 mo+), MDCK, Quadv PF, 0.5mL02/08/2021,05/03/2020 Pneumococcal, PCV-13, PREVNAR 13, (age 6w+), IM, 0.5mL02/08/2020 Family History Medical HistoryRelationNameCommentsCancerFatherClotting DisorderMotherHigh CholesterolMotherThyroid DiseaseMotherRelationNameStatusCommentsFatherDeceased Maternal GrandfatherDeceasedMaternal GrandmotherDeceasedMotherAlivePaternal GrandfatherDeceasedPaternal GrandmotherDeceased Social History Tobacco UseTypesPacks/DayYears UsedDateSmoking Tobacco: NeverSmokeless Tobacco: Never Tobacco Cessation:Counseling Given: Not Answered Alcohol UseStandard Drinks/WeekCommentsYes0 (1 standard drink = 0.6 oz pure alcohol)CommentsNoSex and Gender InformationValueDate RecordedSex Assigned at BirthNot on fileLegal BaqFqzfhc96/10/2013 6:45 PM ESTGender Identity Not on fileSexual OrientationNot on file Last Filed Vital Signs Vital SignReadingTime TakenCommentsBlood Mhytoqmu447/90007/12/2024 11:12 AM EDT Pulse--Temperature--Respiratory Rate--Oxygen Saturation--Inhaled Oxygen Concentration--Oqfvgs082.4 kg (239 lb)07/12/2024 11:12 AM EGGEhgucd152.1 cm (5' 5 )07/12/2024 11:12 AM EDTBody Mass Index39.77007/12/2024 11:12 AM EDT Plan of Treatment Health MaintenanceDue DateLast DoneCommentsDepression Osewea6807/08/1980HIV screen 07/09/1983Hepatitis C phjpku7107/08/1986DTaP/Tdap/Td vaccine (1 - Tdap)07/09/1987 Hepatitis B vaccine (1 of 3 - 19+ 3-dose series)07/09/1987HPV (without or with Pap)1998Diabetes vqxhsd3007/09/20038162Zxlipq96/13/9459Nsusidjtiwz35/13/2014 Colorectal Cancer Resazf8407/08/2013FIT/FOBT: Average risk2013Fecal-DNA (Cologuard): Average risk2013Sigmoidoscopy/CT ehvzyqhytvup40/13/2014 Shingles vaccine (1 of 2)2018Pneumococcal 50+ years Vaccine (2 of 2 - PCV20 or PCV21)Breast cancer gqqomh98, 03/18/2019, 02/27/2018Flu vaccine (#1)/, 02/08/2021, 05/03/2020, Additional history existsCOVID-19 Vaccine ( season) 507/, 09/29/2021, 08/12/2020, Additional history existsCervical cancer iazxud2307/13/2027Pap smear803/, 05/12/2023, 03/14/2022, Additional history existsPneumococcal 0-49 years KtnyqoqRvizbeqilyxn94/13/2020 Hepatitis A vaccineAged OutNo longer eligible based [...] CYTOLOGYRoutine 07/12/2024 12:00 AM EDT MARGE SCREENING AWGTLBJODDsamizj25/23/2020from Last 3 Months or Most Recently Relevant to Health Maintenance Results * DISHTANK OPERATOR Cytology (07/12/2024 12:00 AM EDT)ComponentValueRef RangeTest Method Analysis TimePerformed AtPathologist SignatureCytology ReportPath Number: [id number] DIAGNOSIS Imaged ThinPrep Pap - Cervical (1 monolayer slide): Specimen Adequacy: ? Satisfactory for evaluation. ? - Endocervical/transformation zone component present. Descriptive Diagnosis: ? Negative for intraepithelial lesion or malignancy. ?? 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 The Pap smear is a screening test primarily for squamous epithelial lesions, which is subject to both false negative and false positive results. Your patient should be reminded to consult you immediately if she experiences any suspicious signs or symptoms, regardless of her Pap smear result. GYNECOLOGIC CYTOLOGY REPORT Patient Name: TAMRA MARCOS [facility] Rec: [id number] [facility] ??[facility] ANATOMIC PATHOLOGY [address] [place] [address]. ??[place], [place] [address] [facility] LABSSpecimen (Source)Anatomical Location / LateralityCollection Method / VolumeCollection TimeReceived Time CERVICAL ZCAFKQYT36/ 7:46 AM EDT Narrative Authorizing ProviderResult TypeResult StatusWekatia Yang MDPATHOLOGY/CYTOLOGY ORDERABLESFinal ResultPerforming OrganizationAddressCity/State/ZIP CodePhone Number [facility] [address] [place] [address], [facility] [place] [phone] [facility] * MARGE Screening Bilateral (03/20/2020)Anatomical RegionLateralityModalityBreast BilateralMammography Narrative Authorizing ProviderResult TypeResult StatusHistorical Provider MDIMG MAMMOGRAPHY ORDERABLESFinal Result from Last 3 Months or Most Recently Relevant to Health Maintenance Insurance * Guarantor: Tamra Marcos TypeRelation to PatientDate of BirthPhone Billing AddressPersonal/EpvzkaWxeg30/13/1971 [address] [place] [id number] Care Teams Team MemberRelationshipSpecialtyStart Date Neymar Win MD [address] [phone] PCP - GeneralFamily Medicine01/16/16
--- OUTSIDE RECORDS SUMMARY | 2025-03-11 10:55 | XMS_ITS | Clinical Summary ---
Author Organization [facility] Address [address] [place] [address] Care Team Providers Care Stick Roller Name Role Phone Unavailable Primary Care Provider Unavailabl e Social History Tobacco UseTypesPacks/DayYears UsedDateSmoking Tobacco: Never Assessed CommentsUnknownSex and Gender InformationValueDate RecordedSex Assigned at Not on fileLegal EcgMxolih75/15/2023 7:26 PM EDTGender IdentityNot on fileSexual OrientationNot on file Last Filed Vital Signs Vital SignReadingTime TakenCommentsBlood Gfrdxrmm137/78005/29/2022 12:00 PM EST Pulse--Temperature--Respiratory Rate--Oxygen Saturation--Inhaled Oxygen Concentration--Ykywsd304 kg (233 lb)05/29/2022 12:00 PM CQJIeqybl684.6 cm (5' 6 )05/29/2022 12:00 PM ESTBody Mass Index37.61005/29/2022 12:00 PM EST Plan of Treatment Not on file Insurance
[2025-03-11 11:12] LABS: Hematocrit 37.9 % (36.0-48.0); Hemoglobin 12.3 g/dL (12.0-16.0); Immature Granulocytes Abs Auto 0.03 10^3/uL (0.00-0.03); Immature Granulocytes Pct Auto 0.5 % (0.0-0.5); Lymphocytes Absolute Auto 1.4 10^3/uL (1.2-3.8); Mean Corpuscular HGB Conc 32.5 g/dL (29.9-35.2); Mean Corpuscular Hemoglobin 28.5 pg (26.7-34.0); Mean Corpuscular Volume 87.7 fL (81.0-99.0); Platelet Count 358 10^3/uL (150-450); Red Blood Count 4.32 10^6/uL (4.20-5.40); White Blood Count 5.9 10^3/uL (4.0-11.0)
[2025-03-11 11:54] LABS: Alanine Aminotransferase 27 U/L (14-59); Albumin Globulin Ratio 0.9; Albumin Level 3.5 g/dL (3.4-5.0); Alkaline Phosphatase 135 U/L (46-116); Anion Gap 10.5; Aspartate Amino Transferase 20 U/L (15-37); Blood Urea Nitrogen 16.0 mg/dL (7.0-18.0); Calcium 9.1 mg/dL (8.5-10.1); Carbon Dioxide 30.2 mmol/L (21.0-32.0); Chloride 107 mmol/L (98-107); Cholesterol 240 mg/dL (<=200); Estimated GFR (African America >60 (>=60 mL/min/1.73m^2); Estimated GFR (Non-African Ame >60 (>=60 mL/min/1.73m^2); Free T3 1.98 pg/mL (2.18-3.98); Globulin 3.8 g/dL; Glucose 98 mg/dL (74-106); HDL Cholesterol 57 mg/dL (40-60); Potassium 3.7 mmol/L (3.5-5.1); Sodium 144 mmol/L (136-145); Thyroid Stimulating Hormone 1.639 uIU/mL (0.358-3.740); Total Protein 7.3 g/dL (6.4-8.2); Triglycerides 71 mg/dL (<=150); VLDL CHOLESTEROL 14.2 mg/dL
[2025-03-11 12:06] LABS: Iron 57.0 ug/dL (50.0-170.0)
== END 2025-03-11 10:52 | disposition home or self-care (01) ==
LOC: LAB 10:52
PROVIDERS: PCP Family Medicine; Visit Provider Family Medicine
DX: Z00.00 Encounter for general adult medical examination without abnormal findings (principal)
CPT/HCPCS: 36415; 80053; 80061; 83036; 83525; 83540; 84436; 84443; 84481; 85025

== ENCOUNTER 2025-03-23 07:19 | Outpatient (OUT) | payer OTHER, SELFPAY ==
--- OUTSIDE RECORDS SUMMARY | 2025-03-11 04:45 | XMS_ITS ---
Author Organization [facility] in [place] Address [address] [place] [address] Care Team Providers Care Clinical Massage Therapist Name Role Phone Orion Win Primary Care Provider Allergies No Known Allergies REASON FOR VISIT Presents to office alone for yearly wellness Medications Medication SIG (Take, Route, Frequency, Duration) Notes Start Date End Date Status [facility] Esomeprazole Magnesium 20 MG TAKE 2 CAP Orally Once a day; Duration: 21 days ActiveLisinopril 40 MG1 tablet Orally daily; Duration: 90 daysActiveMupirocin 2 %1 application Externally Twice a day; Duration: 5 days5Active Levothyroxine Sodium 50 MCGTAKE 1 TABLET BY MOUTH EVERY DAY; Duration: 90Active Liothyronine Sodium 5 MCGTAKE 1 TABLET BY MOUTH EVERY DAY ON EMPTY STOMACH FOR 30 DAYS; Duration: 90ActiveDiclofenac Sodium 75 MGTAKE 1 TABLET BY MOUTH TWICE A DAY; Duration: 30ActiveDicyclomine HCl 20 MGTAKE 1 TABLET BY MOUTH TWICE A DAY; Duration: 90Active Immunizations Vaccine Route Administration Date Status Comme nts Flu, Flucelvax (46156) 6 mos and older, single-dose syringe (2276-3836) IM Intramuscular 03/11/2025 Administered Social History Tobacco Use: Social History Observation Description Date Details (start date - stop date) Never Smoker NA - NA Tobacco Use/Smoking Question Answer Notes Patient is a nonsmoker AUDIT-C (Standard) Question Answer Notes Did you have a drink containing alcohol in the p ast year? No [id number] Problems Problem Type SNOMED Code ICD Code Onset Dates Problem Status W/U Status Risk Notes Problem Osteoarthritis of knee (081898923) Knee o steoarthritis (M17.9) Activeconfirmed Vital Signs Weight 238.4 lbs 03/11/2025 Height 65 in 03/11/2025 Blood pressure systolic 164 mm Hg 03/11/20 25 Blood pressure diastolic 94 mm Hg 025 BMI 39.67 kg/m2 03/11/2025 Encounters Encounter Location Date Provider Diagnosis [facility] [address] [place] [address] 03/11/2025 Orion Win Well adult Z00.00 ; Hypertension I10 ; Bilateral primary osteoarthritis of knee M17.0 and Encounter for immunization Z23 Assessments Encounter Date Diagnosis (ICD Code) Assessment Notes Treatment Notes Treatment Clinical Notes Section Notes 03/11/2025 Well adult (ICD-10 - Z00.00) 03/11/2025Hypertension (ICD-10 - I10)03/11/2025ilateral primary osteoarthritis of knee (ICD-10 - M17.0)03/11/2025Encounter for immunization (ICD-10 - Z23) 03/11/2025Otherknee injetions today Plan Of Treatment Medication Medication Name Sig Start Date Stop Date Notes Lisinopril 40 MG 1 tablet Orally daily; Duration : 90 days Mupirocin 2 %1 application Externally Twice a day; Duration: 5 days03/11/2025 Treatment Notes Assessment Notes Other knee injetions today Pending Test Test Name Order Date HEMOGLOBIN A1C (GLYCO) 03/11/2025 IRON, TOTAL 03/11/2025 LIPID PANEL (CHOL/TRIG/HDL/LDL) 03/11/20 25 Insulin Level 03/11/2025 THYROID PANEL (T4/TSH/FREE T3) CMP (COMP MET TERAN) w/eGFR CKD-EPI 2024 CBC WITH DIFF 03/11/2025 Medications Administered Medication Instructions Date of Administration Dosage Notes methylPREDNISolone Acetate 60 mgLidocaine HCl mL Procedure Notes * CategorySub-CategoryDetailNotes(FTFP) Knee InjectionProcedure:Injection of bilateral knee jointsIndication:osteoarthritisPre-Procedure:Risk, benefits and alternatives were discussed with the patient. Verbal consent was obtained prior to the procedure. Prior to the start of the procedure a time out was taken and the identity of the patient was confirmed via name and date of with the patient. The correct site and the procedureto be performed were confirmed and the site marked as appropriate. The correct side was confirmed if applicable. The positioning of the patient was verified. The availability of the correct equipmentwas verifiedProcedure Note:Using sterile technique, the aspiration/injection needle was then directed from a lateral aspect. Fluid was aspirated with a 22-gauge. The syringe was changed and the same needle was left in place and was used to inject 1 mL of 1% Lidocaine and 2 mL 40mg/mL methylprednisolone. A bandage was appliedPost-Procedure:The patient tolerated the procedure wellComplications:nonePatient Instructed toavoid strenuous activity for 1 days Progress Notes * PRITITamra ADOB:[birth year] (54 yo F)Acc No.[id number]:03/11/2025 Progress Note Patient: Tamra CARLTON :?Neymar Win ([facility]), MDDOB:1970???Age: 54 Y???Sex:FemaleDate:03/11/2025Phone:[phone]:[address], [id number] In:09:29 AM ESTCheck Out:10:41 AM EST Subjective: * Chief Complaints: * P resents to office alone for yearly wellness * HPI: ???General:?BP - high her e- and hgh at home DBP 85-90 discussed weight and knee teran as a results DIsucsed thyroid - an dfollow up on labs bilateral knee angélica - hx meniscus tears. * ROS: ???EENT:?hearing changes?denies.?visual changes?denies. non-healing mouth sores?denies.?swollen glands or neck lumps?denies.?hoarseness?denies.?sore throat?denies.?difficulty swallowing?denies.?nose bleeds?denies.?nasal congestion?denies.?ear ache?denies.?ear discharge denies.?ringing in ears?denies.?light sensitivity?denies.?eye pain?denies.?blurring?denies.?eye irritation?denies.?double vision?denies. vision loss?denies.?General/Constitutional:?Sweats:?Denies.?Fatigue?denies.?Sleep proble ms?denies.?Anorexia?denies.?Malaise?denies.?Weight loss?denies. Fatigue or Weakness?denies.?Fever or Chills?denies.?Cardiovascular:?Shortness of Breath w/lying flat?denies.?Lightheadedne ss/dizziness?denies.?Chest tightness/ heavy pressure?denies.?Swelling of legs, a nkles, or feet?denies.?Waking up with shortness of breath?denies.?Chest pain&#16 0;denies.?Palpitations?denies.?Weight gain?denies.?Respiratory:?Chronic or frequent cough?denies.?Coughing up blood&#1 60;denies.?Difficulty breathing?denies.?Productive cough?denies.?Snoring&#1 60;denies.?Shortness of breath that awakens from sleep (PND)?denies.?Chest pain? denies.?Sputum production?denies.?Wheezing?denies.?Musculoskeletal:?Joint pain?denies.?Joint Fluid?denies.?Backpain?denies.?Knee pain?denies.?Neck pain?denies.?Joint Stiffness?denies.?Muscle cramps?denies.?Weakness of muscles?denies.?Arthritis?denies.?Muscle aches?denies.?Pain in shoulder(s)?denies.?Swollen joints?denies.? * Active Problem List M54.5 Low back pain Modified On:10/06/2022W/U Status:ynhjyqpcqI83.9Eczema Modified On:10/06/2022U Status:ydrzbygduN87.1Thyroid nodule Modified On:10/06/2022/U Status:zskhkoatkH12.2Seasonal allergic rhinitis Modified On:10/06/2022 Status:igzosdihjM67.2Multinodular goiter Modified On:10/06/2022 Status:ulstqlcwjZ69.30Diverticula of intestine Modified On:10/06/2022 Status:mejhbuuzfS61.1Renal cyst Modified On:10/06/2022 Status:flkknjdboI92.9Gastric reflux Modified On:10/06/2022 Status:msiqymjmsK01.00Well adult Modified On:10/07/2022 Status:duvnzdmymZ44.29Other chronic pain Modified On:11/15/2022U Status:oxcujtoyvT23.12Unilateral primary osteoarthritis, left knee Modified On:11/18/2022 Status:sljoqmdieR18.232AComplex tear of medial meniscus, current injury, left knee, initial encounter Modified On:12/13/2022 Status:rzzpnmmiwF85.9Hypothyroidism, unspecified Modified On:09/03/2023U Status:vfjoaqvxcZ02Lennjlrfutol Modified On:11/21/2023 Status:ksmtdsfmfH58.9Chest pain Modified On:11/21/2023U Status:gujnqjpbvL32.89Chest wall pain Modified On:02/11/2024U Status:onzcongphC23.9Knee osteoarthritis Modified On:03/11/2025U Status:vxocaapitX19.00Hypercholesterolemia Modified On:03/14/2025U Status:confirmed * Medical History: * Surgical History: C ystoscopy with stent removal Lithotripsy EGD/Colonoscopy 08/26/2018Lithotripsy 01/20 * Hospitalization/Major Diagno stic Procedure: * Family History: F ather: , CABG, Prostate Ca, diagnosed with Cancer, Heart Disease. M other: alive, A-fib, hyperlipidemia, blood clotting disorder, diagnosed with Heart Disease. B rother(s): alive, IBS. S on(s): alive. D aughter(s): alive. 1 brother(s) . 1 son(s) , 1 daughter(s) - healthy. . * Social History: ???Tobacco Use:?Tobacco Use/Smoking?Patient is a?nonsmoker ???Drug/Alcohol:?AUDIT-C (Standard)?Did you have a drink containing alcohol in the past year??No ?Points?0 ?Interpretation?Negative * Medications: T akingCVS Esomeprazole Magnesium(Esomeprazole Magnesium) 20 MG Capsule Delayed Release TAKE 2 CAP Orally Once a day Diclofenac Sodium 75 MG Tablet Delayed Release TAKE 1 TABLET BY MOUTH TWICE A DAY Dicyclomine HCl 20 MG Tablet TAKE 1 TABLET BY MOUTH TWICE A DAY Levothyroxine Sodium 50 MCG Tablet TAKE 1 TABLET BY MOUTH EVERY DAY Liothyronine Sodium 5 MCG Tablet TAKE 1 TABLET BY MOUTH EVERY DAY ON EMPTY STOMACH FOR 30 DAYS Lisinopril 20 MG Tablet TAKE 1 TABLET BY MOUTH EVERY DAY FOR 30 DAYS Taking CVS Esomeprazole Magnesium(Esomeprazole Magnesium) 20 MG Capsule Delayed Release TAKE 2 CAP Orally Once a day Taking Diclofenac Sodium 75 MG Tablet Delayed Release TAKE 1 TABLET BY MOUTH TWICE A DAY Taking Dicyclomine HCl 20 MG Tablet TAKE 1 TABLET BY MOUTH TWICE A DAY Taking Levothyroxine Sodium 50 MCG Tablet TAKE 1 TABLET BY MOUTH EVERY DAY Taking Liothyronine Sodium 5 MCG Tablet TAKE 1 TABLET BY MOUTH EVERY DAY ON EMPTY STOMACH FOR 30 DAYS Taking Lisinopril 20 MG Tablet TAKE 1 TABLET BY MOUTH EVERY DAY FOR 30 DAYS DiscontinuedCefdinir 300 MG Capsule 2 capsule Orally once a day Pyridium(Phenazopyridine HCl) 200 MG Tablet 1 tablet after meals Orally Three times a day Medication List reviewed and reconciled with the patientDiscontinued Cefdinir 300 MG Capsule 2 capsule Orally once a day Discontinued Pyridium(Phenazopyridine HCl) 200 MG Tablet 1 tablet after meals Orally Three times a day Medication List reviewed and reconciled with the patient * Allergies: N .K.D.A.no[Allergies Verified] Objective: * Vitals: W t:238.4lbs, Ht: 65 in, BP:164/94mm Hg, BMI:39.67Index, Ht-cm: 165.1 cm, Wt-k.14 kg. * Examination: ???Physical Exam: ?GENERAL:?well developed, well nourished, in no acute distress.?HEAD:?normocephalic/atraumatic.?EYES:?pupils equal, round and reactive to light, conjunctivae and sclerae normal.?EARS:?no deformity or lesion of external ear, canals and TM appear normal bilaterally, TM's intact, not inflamed with normal light reflex, hearing grossly normal to conversational speech.?NOSE:?no deformity, discharge, inflammation, or lesions. ?MOUTH:?mucous membranes moist, normal oropharynx and posterior pharynx without lesions or exudates, tongue normal, dentition normal.?NECK:?neck supple, no masses or palpable cervical nodes, trachea midline, thyroid without nodules, masses, tenderness, or enlargement.?CHEST:?no chest wall deformity, no chest wall tenderness. ?LUNGS:?normal respiratory effort and clear to auscultation, no wheezes, rales, or rhonchi, good air exchange.?CARDIO:?regular rate and rhythm, normal S1 and S2, nor murmur, rub, or gallop.?PULSES:?normal capillary refill.?ABDOMEN:?soft, non-distended, non-tender, no masses.?MUSCULOSKELETAL:?no deformity or scoliosis noted, normal range of motion, joints normal, no erythema, edema, effusion, or ecchymosis.?EXTREMITY:?no clubbing, cyanosis, edema, or deformity withnormal ROM in both upper and lower bilateral extremities.?NEUROLOGIC:?grossly normal.?SKIN:?no rashes, ulcerations, or suspicious lesions.?LYMPH NODES:?no cervical adenopathy, nodes normal.?MENTAL STATUS:?alert and oriented x3, normal mood and affect.? Assessment: * Assessment: 1.?Well adult - Z00.00 (Primary)???2.?Hypertension - I10???3.?Bilateral primary osteoarthritis of knee - M17.0???4.?Encounter for immunization - Z23??? Plan: * Treatment: Start Mupirocin Ointment, 2 %, 1 application, Externally, Twice a day, 5 days, 30 gm, Refills 11; Refill Lisinopril Tablet, 40 MG, 1 tablet, Orally, daily, 90 days, 90 Tablet, Refills 3.?LAB: HEMOGLOBIN A1C (GLYCO) ?LAB: IRON, TOTAL ?LAB: LIPID PANEL (CHOL/TRIG/HDL/LDL) ?LAB: Insulin Level ?LAB: THYROID PANEL (T4/TSH/FREE T3) ?LAB: CMP (COMP MET TERAN) w/eGFR CKD-EPI ?LAB: CBC WITH DIFF2.?Others? Notes: knee injetions today?? * Procedures: ???(FTFP) Knee Injection:?Procedure:?Injection of bilateral knee joints.?Indication:?osteoarthritis.?Pre-Procedure:?Risk, benefits and alternatives were discussed with the patient. Verbal consent was obtained prior to the procedure. Prior to the start of the procedure a time out was taken and the identity of the patient was confirmed via name and date of with the patient. The correct site and the procedure to be performed were confirmed and the sitemarked as appropriate. The correct side was confirmed if applicable. The positioning of the patientwas verified. The availability of the correct equipment was verified.?Procedure Note:?Using sterile technique, the aspiration/injection needle was then directed from a lateral aspect. Fluid was aspirated with a 22-gauge. The syringe was changed and the same needle was left in place and was used to inject 1 mL of 1% Lidocaine and 2 mL 40mg/mL methylprednisolone. A bandage was applied.?Post-Procedure:?The patient tolerated the procedure well. ?Complications:?none.?Patient Instructed to?avoid strenuous activity for 1 days. ? * Immunizations: Flu, Flucelvax (68392) 6 mos and older, single-dose syringe (0934-8433) : 0.5 mL (Route: Intramuscular) given by Angelina Casas , on Left Deltoid (Encounter for immunization) * Therapeutic Injections: Methylprednisolone Acetate 40mg/mL : 160 mg (Route: Other/Miscellaneous) given by Orion Win MD on Knee Joint Bilateral??? Lidocaine HCl 2% 20mg/mL : 2 mL (Route: Other/Miscellaneous) given by Orion Win MD on Knee Joint Bilateral * Procedure Codes: 9 0661 FLU VACCINE-INTRMUSC [id number] ASPIRINJ. MAJOR WO, Modifiers: 50 41365 IMMUNIZATION ADMIN. 1 [id number] Injection, methylprednisolone acetate, 1 mg, Units: 160.00 * Preventive Medicine: ??Screenings/Counseling:?BMI ACTION PLAN?Above Normal BMI Follow-up?Dietary management education, guidance, and counseling See treatment section of progress note for complete details of management plan. * * Sign off status: CompletedVisit Status:?CHK (Check Out) true * Provider: Allyssa Win ([facility])MD Date: 1 05/11/2024 Generated for Printing/FaScimetrikag/eTransmitting on:?03/23/2025 07:23 AM EST History and Physical Notes * HPI (History of Present Illness) CategorySub-CategoryDetailNotesCategory NotesGeneral BP - high her e- and hgh at home DBP 85-90 discussed weight and knee teran as a results DIsucsed thyroid - an dfollow up on labs bilateral knee angélica - hx meniscus tears Examination CategorySub-CategoryDetailNotesCategory NotesPhysical ExamGENERAL:well developed, well nourished, in no acute distressHEAD:normocephalic/atraumatic EYES:pupils equal, round and reactive to light, conjunctivae and sclerae normal EARS:no deformity or lesion of external ear, canals and TM appear normal bilaterally, TM's intact, not inflamed with normal light reflex, hearing grossly normal to conversational speechNOSE:no deformity, discharge, inflammation, or lesionsMOUTH:mucous membranes moist, normal oropharynx and posterior pharynx without lesions or exudates, tonguenormal, dentition normalNECK:neck supple, no masses or palpable cervical nodes, trachea midline, thyroid without nodules, masses, tenderness, or enlargementCHEST:no chest wall deformity, no chest wall tendernessLUNGS:normal respiratory effort and clear to auscultation, no wheezes, rales, or rhonchi, good air exchangeCARDIO:regular rate and rhythm, normal S1 and S2, nor murmur, rub, or gallopPULSES:normal capillary refillABDOMEN:soft, non-distended, non-tender, no massesRECTAL:MUSCULOSKELETAL:no deformity or scoliosis noted, normal range of motion, joints normal, no erythema, edema, effusion, or ecchymosisEXTREMITY:no clubbing, cyanosis, edema, or deformity with normal ROM in both upper and lower bilateral extremitiesNEUROLOGIC:grossly normalSKIN:no rashes, ulcerations, or suspicious lesionsLYMPH NODES:no cervical adenopathy, nodes normalMENTAL STATUS:alert and oriented x3, normal mood and affect
--- OUTSIDE RECORDS SUMMARY | 2025-03-12 08:55 | XMS_ITS ---
Author Organization [facility] [place] Address [address] [place] [address] Care Team Providers Care In Home Sales Consultant Name Role Phone Mitchelterrance Orion Primary Care Provider [phone] REASON FOR VISIT Lab Results- SEE NOTE Medications Medication SIG (Take, Route, Frequency, Duration) Notes Start Date End Date Status Liothyronine Sodium 5 MCG 2 tablet on an empty stomach Orally Once a day; Duration: 90 days Active Problems Problem Type SNOMED Code ICD Code Onset Dates Problem Status W/U Status Risk Notes Problem Hypercholesterolemia (15697745) Hyperchol esterolemia (E78.00) Activeconfirmed Encounters Encounter Location Date Provider Diagnosis [facility] [address] [place] [address] 03/12/2025 Orion Win Hypothyroidism, unspecified E03.9 Assessments Encounter Date Diagnosis (ICD Code) Assessment Notes Treatment Notes Treatment Clinical Notes Section Notes 03/12/2025 Hypothyroidism, unspecified (ICD -10 - E03.9) Plan Of Treatment Medication Medication Name Sig Start Date Stop Date Notes Liothyronine Sodium 5 MCG 2 tablet on an empty stomach Orally Once a day; Duration: 90 days Pending Test Test Name Order Date THYROID PANEL (T4/TSH/FREE T3) Progress Notes * Tamra MARCOS ADOB:[birth year] (54 yo F)Acc No.[id number]:03/12/2025 Patient:?Tamra MARCOS :1970???Age:54 Y???Sex:FemalePhone:[phone] Address:[facility] [place], [address] * Refills Refill Liothyronine Sodium Tablet, 5 MCG, Orally, 180 Tablet, 2 tablet on an empty stomach, Once a day, 90 days, Refills=3 Subjective: * Chief Complaints: * L ab Results- SEE NOTE * Medical History: * Surgical History: * Hospitalization/Major Diagno stic Procedure: * Medications: Objective: * Vitals: * Physical Examination: ??? Assessment: * Assessment: 1.?Hypothyroidism, unspecified - E03.9 (Primary)??? Plan: * Treatment: ?LAB: THYROID PANEL (T4/TSH/FREE T3)2.?Others? Refill Liothyronine Sodium Tablet, 5 MCG, 2 tablet on an empty stomach, Orally, Once a day, 90 days, 180 Tablet, Refills 3.?? * Procedure Codes: * true * Date:?Generated for Printing/Faxing/eTransmitting on:?03/23/2025 07:22 AM EST
--- NOTE | 2025-03-23 07:21 | MM_ITS ---
Patient Name: KAROL MARCOS MR#: [id number] : 1970 Exam Date: 03/23/2025 Ordering Doctor: DR SUE ERWIN . RADIOLOGY REPORT PROCEDURE: MM TOMOSYNTHESIS SCREENING BI COMPARISON: MM TOMOSYNTHESIS DIAGNOSTIC BI, 02/24/2024. MM TOMOSYNTHESIS DIAGNOSTIC RT, 10/16/2023. MM DIAGNOSTIC MAMMO UNILAT RT, 05/13/2023. MM TOMOSYNTHESIS SCREENING BI, 04/30/2023. INDICATIONS: Screening Calculator Name NCI Breast Cancer Risk Assessment Tool 5 Year Breast Cancer Risk 2.10% Lifetime Breast Cancer Risk 13.10% Personal Breast Cancer No Personal Ovarian Cancer No Treatments None Family Cancers Father with bone & prostate cancer at age 69. LOCATION: [facility] BREAST COMPOSITION: There are scattered areas of fibroglandular density. FINDINGS: DIAGNOSTIC CATEGORY 1--NEGATIVE. RIGHT BREAST: No significant suspicious finding. LEFT BREAST: No significant suspicious finding. RECOMMENDATIONS: ROUTINE MAMMOGRAM AND CLINICAL EVALUATION IN 12 MONTHS. Dictated by: Rahat Tejeda DO on 03/23/2025 at 10:46 Approved by: Rahat Tejeda DO on 03/23/2025 at 10:48
--- OUTSIDE RECORDS SUMMARY | 2025-03-23 07:22 | XMS_ITS | CCD ---
Author Organization [facility] Care Team Providers Care Tire Curer Name Role Phone Sue Erwin Primary Care Provider [phone] Sue Erwin Primary Care Physician MD Jordi Chand Attending Provider [phone] MD Sue Erwin Primary Care Provider [phone] YAIMA ., DR ROGERS Consulting Unavailable HOY [...] Attending Unavailable TIMMIS, DR GABRIEL Admmessi Unavailable DEWEY, DR KODY Pappas Consulting Unavailable HOY ., [...] Unavailable YAIMA ., DR ROGERS Admitting Unavailable DEWEY, DR KODY Pappas Consulting Unavailable MANNIE, DR JORDI Mckeon Consulting Unavailable YAIMA Thakkar, DR ROGERS Primary Care Unavailable COOK, DR JORDI Mckeon Attending Unavailable MANNIE, DR JORDI Mckeon Admitting Unavailable DAHIANA, DR ZENAIDA Martin Consulting Unavailable COOK, DR JORDI Mckeon Consulting Unavailable YAIMA ., DR ROGERS Primary Care Unavailable MANNIE, DR JORDI Mckeon Attending Unavailable MANNIE, DR JORDI Mckeon Admitting Unavailable DAHIANA, DR ZENAIDA Martin Consulting Unavailable Shubham Rodrigues Unavailable MD Sue Erwin Primary Care Provider [phone] MD Shubham Rodrigues Attending Provider [phone] Sue Erwin MD Primary Care Provider [phone] ROSAURA YANG Referring Unavailable SUE ERWIN Primary Care Unavailable Vee Pittman MD Attending Provider Vee Pittman Attending Unavailable Vee Pittman Admitting Unavailable NKANSAH-AMANKRA, NANCY Attending Unavail able NKANSAH-AMANKRA, NANCY Admitting Unavail able NKANSAH-AMANKRA, NANCY Attending Unavail able Jordi CHAND Attending Unavailable NKANSAH-AMANKRA, NANCY Attending Unavail able NKANSAH-AMANKRA, NANCY Referring Unavail able NKANSAH-AMANKRA, NANCY Admitting Unavail able NKANSAH-AMANKRA, NANCY Attending Unavail able NKANSAH-AMANKRA, NANCY Referring Unavail able NKANSAH-AMANKRA, NANCY Admitting Unavail able Aria Srinivasan Attending Unavailable NKANSAH-AMANKRA, NANCY Attending Unavail able NKANSAH-AMANKRA, NANCY Attending Unavail able NKANSAH-AMANKRA, NANCY Referring Unavail able NKANSAH-AMANKRA, NANCY Admitting Unavail able Allergies Allergy ClassificationReported Allergen(s)Allergy TypeDate of OnsetReaction(s) Facility (2 sources)No Known Medication Allergies; Translations: [No Known Medication Allergies]Propensity to adverse reactions (disorder)[facility] Medications Current Medications MedicationDrug Class(es)DatesSig (Normalized)Sig (Original)acetaminophen 325 mg / HYDROcodone bitartrate 5 mg oral tablet (11 sources)Opioid AgonistStart: 05-71-7147lfte 1 tablet by mouth every four hours as needed for painHYDROcodone-Acetaminophen 5-325 MG 1 tablet as needed for pain Orally up to every 4 hrs for 5 days PB: [id number] Dec, Active Start: 11-29-2021 End: 66-58-6934vjtk 1 tablet by mouth every four to six hours as needed for pain Hydrocodone-Acetaminophen 5-325 mg tablet Discontinued 1 TAB PO EVERY 4-6 HOURS as needed for pain 10 November 29, 2021 December 13, 2021 2:25pmaspirin 81 mg chewable tablet (1 source)Platelet Aggregation Inhibitor, Nonsteroidal Anti-inflammatory Drug Start: 63-73-4379dgrtygy 81 mg Chew Tab mg tab(s), Chewed, Daily, Refills(s) 0 Start Date: 01/27/23 Status: OrderedClaritin-D 12 Hour (6 sources)Claritin-D 12 Hour Activediclofenac sodium 75 mg delayed release oral tablet (12 sources)Nonsteroidal Anti-inflammatory DrugStart: 44-02-2411wdhl 1 tablet by mouth twice dailyStart: 34-92-7154gsbq 75 mg by mouth twice dailydiclofenac sodium 75 mg, Oral, BID Start Date: 01/19/19 Status: Ordered Repeat number: 1 dicyclomine hydrochloride 20 mg oral tablet (20 sources)AnticholinergicStart: 97-84-5643vinulzfljyt 20 mg Tab 20 mg = 1 tab(s) Start Date: 11/21/21 Status: Ordered Repeat number: 1Start: 57-84-9958rlyf 1 tablet by mouth three times daily before mealtimedicyclomine (BENTYL) 20 MG tablet TAKE 1 TABLET BY MOUTH 3 TIMES A DAY BEFORE MEALS 5 12/27/2018 Active esomeprazole 20 mg delayed release oral tablet (15 sources)Proton Pump InhibitorStart: 33-59-9407vlop 2 tablets by mouth once daily in the morningStart: 02-98-3016zafr 40 mg by mouth once daily in the morningEsomeprazole Magnesium Active 40 MG PO Every morning December 13, 2021 12:00amStart: 31-61-7063vlma 40 mg by mouth once dailyEsomeprazole Magnesium Active 40 MG PO Daily December 13, 2021 12:00amStart: 91-51-6434ruqt 40 mg by mouth once dailyEsomeprazole Magnesium Active 40 MG PO Daily December 13, 2021 12:00amStart: 04-79-5973ruqf 2 capsules by mouth once dailyCVS ESOMEPRAZOLE MAGNESIUM 20 MG delayed release capsule TAKE 2 CAPSULES BY MOUTH EVERY DAY 02/09/2020 ActiveEsomeprazole Magnesium ActiveAllegra (5 sources)Histamine-1 Receptor AntagonistStart: 33-91-9468Rryejur Oral Start Date: 11/21/21 Status: Ordered Repeat number: 1Start: 78-59-8994Bhlmbvh Oral Start Date: 11/21/21 Status: Orderedtake 1 tablet by mouth once dailyfexofenadine (PHYLICIA ALLERGY) 180 MG tablet Take 180 mg by mouth daily 0 Activehyoscyamine sulfate 0.125 mg oral tablet (9 sources)Start: 08-94-0506iafo 1 tablet by mouth once daily as neededStart: 51-66-3906hofa 1 tablet under the tongue four times daily as needed for pain hyoscyamine (LEVSIN/SL) 125 MCG sublingual tablet DISSOLVE 1 TABLET UNDER THE TONGUE 4 TIMES DAILY NEEDED FOR ABDOMINAL PAIN 0 02/04/2020 Active Lactobacillus Combination No.4 (Probiotic) 3 billion cell Capsule (2 sources)Start: 36-11-0667dskn 3 capsules by mouth once daily at bedtimeStart: 58-59-7979cmwv 3 capsules by mouth once daily at bedtimeLactobacillus Combination No.4 (Probiotic) 3 billion cell Capsule Active 1 CELL PO Daily at bedtimeAugust 2022 12:00amlevothyroxine sodium 0.05 mg oral tablet (20 sources)l-ThyroxineStart: 04-06-5353pxhi 1 tablet by mouth once daily in the morningStart: 24-18-9409hahe 1 tablet by mouth once dailylevothyroxine 50 mcg (0.05 mg) Tab 50 microgram = 1 tab(s), Oral, Daily Start Date: 01/19/19 Status: Ordered Repeat number: 1liothyronine sodium 0.005 mg oral tablet (3 sources)l-TriiodothyronineStart: 47-20-6449dwji 1 tablet by mouth once daily liothyronine (CYTOMEL) 5 MCG tablet TAKE 1 TABLET BY MOUTH EVERY DAY ON EMPTY STOMACH FOR 30 DAYS 05/20/2024 ActiveStart: 06-41-5470eyklckletzgc 5 mcg Tab Refills(s) 0 Start Date: 02/02/24 Status: Ordered Repeat number: 1lisinopril 20 mg oral tablet (4 sources)Angiotensin Converting Enzyme InhibitorStart: 39-05-0545zoicozumtj 20 mg Tab Refills(s) 0 Start Date: 02/02/24 Status: Ordered Repeat number: 1Start: 89-82-7826hsim 1 tablet by mouth at bedtimeLoratadine / Pseudoephedrine (3 sources)alpha-Adrenergic AgonistStart: 56-87-0580nwso 1 tablet by mouth every twelve hoursClaritin-D 1 tab(s), Oral, q12hr Start Date: 01/19/19 Status: Ordered Loratadine-Pseudoephedrine (CLARITIN-D 24 HOUR PO) Indications: Routine gynecological examination Take by mouth. 0 Activepantoprazole 40 mg delayed release oral tablet (10 sources)Proton Pump InhibitorStart: 78-98-1083wgad 1 tablet by mouth once dailyProtonix 40 mg Tab-DR 40 mg = 1 tab(s), Oral, Daily Start Date: 01/19/19 Status: Orderedtamsulosin hydrochloride 0.4 mg oral capsule (1 source)alpha-Adrenergic BlockerStart: 11-15-2024 End: 66-45-7032gzal 1 capsule by mouth twice dailyFlomax 0.4 [...] oral tablet (8 sources)Quinolone AntimicrobialStart: 12-21-2021 End: 64-71-7753iflk 1 tablet by mouth every two hoursCiprofloxacin Hcl (Cipro) 500 mg tablet Discontinued 500 MG PO Q12H December 21, 2021 12:00am December 25, 2022 8:39am administer dose at least 2 hrs before/6 hrs after dairy products, calcium, zinc, and/or iron-containing productsStart: 14-39-4077cpad 1 tablet by mouth every two hoursCiprofloxacin Hcl (Cipro) 500 mg tablet Active 500 MG PO Q12H December 21, 2021 12:00am administer dose at least 2 hrs before/6 hrs after dairy products, calcium, zinc, and/or iron-containing produ ctsStart: 49-18-6992dvmc 1 tablet by mouth every two hoursCiprofloxacin Hcl (Cipro) 500 mg tablet Active 500 MG PO Q12H December 21, 2021 12:00am administer dose at least 2 hrs before/6 hrs after dairy products, calcium, zinc, and/or iron-containing productsStart: 41-55-4332gmoz 1 tablet by mouth every two hoursCiprofloxacin [...] tablet (15 sources)Cholinergic Muscarinic AntagonistStart: 11-29-2021 End: 05-24-9648gitb 1 tablet by mouth twice dailyOxybutynin Chloride 5 mg tablet Discontinued 5 MG PO Twice daily November 29, 2021 12:00am December 25, 2022 8:41amStart: 72-44-6347Txvlizi 5 mg Tab 5 mg = 1 tab(s) Start Date: 11/21/21 Status: Orderedsucralfate 1000 mg oral tablet (16 sources)Aluminum ComplexStart: 11-29-2021 End: 26-29-8066lnzh 1 tablet by mouth twice dailySucralfate 1 gram tablet Discontinued 1 GM PO Twice daily November 29, 2021 12:00am December 25, 2022 8:41amStart: 77-43-2528narzpajmkj tab 1 gm = 1 tab(s) Start Date: 11/21/21 Status: OrderedStart: 63-71-2671byqgoocttb tab 1 gm = 1 tab(s) Start [...] abdominal pain; Translations: [Right upper quadrant pain]Onset: 48-50-1107DqtfrwbfOigbynel of urinary tract (20 sources)Ureteric stone; Translations: [Calculus of ureter]Onset: 11-16-2021 EpisodicComment on above:Problem List clean-up per request of Phys. EHR Cmte Diseases of white blood cells (1 source)Elevated white blood cell count, unspecified; Translations: [ELEVATED WHITE BLOOD CELL COUNT UNS]Onset: 53-33-4185NbjysjbXfckelygu hypertension (1 source)Essential (primary) hypertension; Translations: [ESSENTIAL PRIMARY HYPERTENSION]Onset: 93-16-8273YxgflyzZivzmfcoe and duodenitis (6 sources)Bile-induced gastritis; Translations: [Other gastritis without bleeding]EpisodicJoint disorders and dislocations; trauma-related (5 sources)Unspecified internal derangement of right knee; Translations: [Chondromalacia patellae, right knee]Onset: 29-42-2770RytiycjEkmzx disorders and dislocations; trauma-related (8 sources)Derangement of left knee; Translations: [Unspecified internal derangement of left knee]ChronicJoint disorders and dislocations; trauma-related (4 sources)Other tear of medial meniscus, current injury, right knee, initial encounter; Translations: [Other tear of medial meniscus, current injury, right knee, subsequent encounter]Onset: 72-38-3336FgohqpzkIxmqu disorders and dislocations; trauma-related (3 sources)Other tear of medial meniscus, current injury, left knee, initial encounterEpisodicLymphadenitis (4 sources)Cervical lxjuydfwqoiyqpu90-91-7043NvsadipmXrcoekasotwcxs (20 sources)Unilateral primary osteoarthritis, right knee; Translations: [Osteoarthritis of right knee joint]Onset: 38-56-3272IqrksvjKxyck ear and sense organ disorders (4 sources)Ypwwmja31-72-5647JioduyqlSovsl female genital disorders (1 source)Vaginal discharge; Translations: [Other specified noninflammatory disorders of vagina]EpisodicOther gastrointestinal disorders (6 sources)Irritable bowel syndrome; Translations: [Irritable bowel syndrome without diarrhea]ChronicOther gastrointestinal disorders (6 sources)Abdominal bloating; Translations: [Abdominal distension (gaseous)] EpisodicOther non-traumatic joint disorders (7 sources)Pain in right knee; Translations: [PAIN IN RIGHT KNEE]Onset: 86-93-6138XgnkpnikDhdsb non-traumatic joint disorders (2 sources)Pain in left kneeEpisodicOther upper respiratory disease (4 sources)Congestion of nasal ltygi25-35-0361AjtmspgzLgpgxcao codes; unclassified (3 sources)Other specified postprocedural statesEpisodicThyroid disorders (9 sources)Thyroid nodule; Translations: [Nontoxic single thyroid nodule]Onset: 468580-50-7791VctdbtdMyuzhmnmzxty (1 source)Patient encounter status; Translations: [Women's annual routine gynecological examination]Unclassified (1 source)CONTACT W/AND (SUSP) EXPOS COVID-19; Translations: [CONTACT W/AND (SUSP) EXPOS COVID-19]Onset: 11-16-2021 Past or Other Problems Problem ClassificationProblemDateDocumented DateEpisodic/ChronicBacterial infection; unspecified site (1 source)Unspecified Escherichia coli [E. coli] as the cause of diseases classified elsewhere; Translations:[UNS E COLI CAUSE DX CLASS ELSEWHERE]Onset: 01-03-0909SjjwouejLscsz aftercare (1 source)Other continuous churn buttermaker (current) drug therapy; Translations: [OTH RESIDENTIAL CURRENT DRUG THERAPY]Onset: 28-26-6722ZamadwfvXoeay screening for suspected conditions (not mental disorders or infectious disease) (4 sources)Encounter for screening mammogram for malignant neoplasm of breast; Translations: [ENC SCR MAMMO MALIG NEOPLASM BREAST]Onset: 53-97-8769Ezvjtsgn Residual codes; unclassified (1 source)Family history of malignant neoplasm of other organs or systems; Translations: [FAM HX MALIG NEOPLASM OTH ORGN/SYS]Onset: 04-53-0713Peamzjtr Sprains and strains (1 source)Sprain of medial collateral ligament of right knee, initial encounter; Translations: [SPRAIN MCL RIGHT KNEE INITIAL ENC]Onset: 68-94-3519Rxrpalxw Urinary tract infections (1 source)Pyonephrosis; Translations: [PYONEPHROSIS]Onset: 70-63-6630Iiyvkmhy Results Test NameValueInterpretationReference RangeFacilityUrology Office/Clinic Noteon 53-92-2608Nptanzs Office/Clinic NoteUrology Office/Clinic Note Chief Complaint F/U w/MARTIN/KUB HPI Staff 2 month f.u ESWL 01/04/25 w/ KUB and MARTIN. Prev dx: ureteral stone, kidney stone KUB 02/21/25- neg for stone MARTIN 02/21/25- Shows Rt sided twinkle artifact suspicious for 5 mm stone in the mid pole. Left sided 6mm possible stone in the superior pole and 7mm possible stone on the left lower pole. Partially distended bladder with 173 ml BBS Score:10 Today's UA resulted: Slrlq-fklhlz-DKY, Small-MARIANNE Pt denies urinary complaints at this time. History of Present Illness Staff HPI reviewed and agree. Review of Systems PHQ Score Initial Depression Screen Score: 0 SCORE no fever, chills, malaise, myalgia. no rash/lesions. no chest pain, palpitations, or SOB. no abdominal pain, nausea, vomiting. no unilateral calf swelling, redness, pain Physical Exam Vitals & Measurements T: 36.2 ???C(Tympanic) HR: 83(Peripheral) BP: 138/90 SpO2: 100% HT: 164 cm HT: 65 in WT: 242.949 lb WT: 110.2 kg BMI: 40.97 General: nontoxic, well-nourished, appears stated age Mouth: moist mucosa Lungs: normal respiratory effort Cardio: regular rate, good distal perfusion Abdomen: nondistended, no suprapubic distention or tenderness, no CVA tenderness Neurologic: Grossly normal Skin: No rashes or suspicious lesions Assessment/Plan KNA/GPC pt. PMH: ND no. CVA no. DVT no. PE no. [...] LLP calculus. No L hydro. KUB 12/03/24 [facility] [place] - negative for stones 12/07/24 cysto, R ureteroscopy, R ureteral stone basketing , R ureteral stent placement Stent removed 5 days after procedure without difficulty 01/04/25 L ESWL 02/21/25 KUB - no obvious radiopaque stones 02/21/25 MARTIN - echogenic focus with twinkle artifact at the midpole on the R measuring 5mm suggesting a stone. A suspected stone is also present at the superior pole on the L measuring 6mm. There is an additional potential 7mm stone at the lower pole on the L. UA today trace-intact blood and small leuks Pt reports she has been doing well since stone procedures. Denies pain or hematuria. Discussed imaging results. Advised patient that MARTIN is not the best test and also tends to overestimate size. Discussed options with patient including obtaining CT now to further investigate or wait a few months. Pt would like to wait as she is not having any symptoms. I am agreeable to this. Will order CT w/o con to be completed in about 6 months (1 year from previous to reduce exposure) and follow up with to discuss possible intervention. Pt knows to call our office or go to ER if she develops any stone symptoms. Discussed metabolic workup, pt reports she has done this in the past and it only shows dehydration. -Greatly increase fluids -CT abd/pelvis w/o con in 6 months (recall placed) -F/U with Dr. Salomon to discuss results Ordered: Postoperative follow-up visit, related to the original procedure 70947 2. Kidney stone (N20.0: Calculus of kidney) [...] nonobstructive. Nonobstructive LLP calculus. No L hydro. 02/21/25 KUB - no obvious radiopaque stones 02/21/25 MARTIN - echogenic focus with twinkle artifact at the midpole on the R measuring 5mm suggesting a stone. A suspected stone is also present at the superior pole on the L measuring 6mm. There is an additional potential 7mm stone at the lower pole on the L. -See #1 Ordered: Postoperative follow-up visit, related to the original procedure [id number] Orders: Urnls Dip Stick Auto w/o Microscopy POC 02170 Follow-up With When Contact Information HODAN ARREGUIN, ISAÍAS CRUZ Within 6 months Additional Instructions: w/ CT abd/pelvis w/o con Patient Education Kidney Stones, Nkzf-pi-Xjzs Problem List/Past Medical History Ongoing Cervical adenopathy History of kidney stones Kidney stone Morbid obesity with BMI of 40.0-44.9, adult Right ear pain Sinus congestion Thyroid nodule Ureteral stone Historical No qualifying data Procedure/Surgical History ESWL of kidney (01/04/2025), Cystoscopy (12/07/2024), ESWL - Extracorporeal shockwave lithotripsy for renal calculus (12/21/2021), Cystoscopic insertion of ureteric stent (11/29/2021), Cystoscope (11/13/2021), Colonoscopy (08/26/2018), Biopsy of breast, (more content not included)...[facility] HospitalComment on above:Result Comment: Electronically Signed By: Aria Huynh\.tamika\Date and Time Signed: 03/09/25 13:31 ESTProceduralon 01-13-2025 ProceduralProcedural Patient: KAROL PLASCENCIA Age: 54 [...] day(s), # 60 cap(s), Refills(s) 1, Pharmacy: [facility]/pharmacy #[id number], 164, cm, 02/02/24 8:05:00 EDT, Height/Length Dosing, [...] All Problems Cervical adenopathy / SNOMED CT 787532 / Confirmed History of kidney stones / SNOMED CT 3782026759 / Confirmed Kidney stone / SNOMED CT 591427778 / Confirmed Morbid obesity with BMI of 40.0-44.9, adult / IMO 10928938 / Possible Problem added automatically by Discern Expert based on clinical documentation Right ear pain / SNOMED CT 21191975 / Confirmed Sinus congestion / SNOMED CT 255761628 / Confirmed Thyroid nodule / SNOMED CT 831953412 / Confirmed Ureteral stone / SNOMED CT 96721132 / Confirmed, Active Problems (8) Cervical adenopathy [...] right ureteroscopy, stone basket extraction, stent placement ([id number]) on 12/07/2024 at 54 Years. ESWL - Extracorporeal shockwave lithotripsy for renal calculus (217690126) on 12/21/2021 at 51 Years. Cystoscopic insertion of ureteric stent (695826867) on 11/29/2021 at 51 Years. Cystoscope/Lt. RG/Lt. double J stent (23416953) on 11/13/2021 at 51 Years. Colonoscopy (370314138) on 08/26/2018 at 48 Years. Diagnostic endoscopy (322456115). D&C - Dilatation and curettage (4754145791). Biopsy of breast (158007488). Social History Social & Psychosocial Habits Alcohol 12/07/2024 Risk Assessment: Denies Alcohol Use 12/07/2024 Use: Current Frequency: 1-2 times per month Substance Abuse 12/07/2024 Risk Assessment: Denies Substance Abuse Tobacco 12/07/2024 Tobacco Use: Never (less than 100 (more content not included)... [facility] HospitalComment on above:Result Comment: wrong folder Main OR Intraoperative Recordon 14-79-0435Tdez OR Intraoperative RecordMain OR Intraoperative Record IntraOp Document Type FT Summary Primary Physician: NANCY QUINONEZ MD Finalized Date/Time: 01/05/25 10:44:51 Pt. Name: KAROL PLASCNECIA/Sex: 1970 Female Med Rec #: [id number] Physician: NANCY QUINONEZ MD Financial #: [id number] Pt. Type: A Room/Bed: [facility]01 Admit/Disch: 01/04/25 09:33:17 - 01/04/25 14:00:04 Institution: Case Times FT Entry 1 Patient Times In Room 01/04/25 11:56:00 Out Room 01/04/25 12:27:00 Procedure Times Start 01/04/25 12:03:00 Stop 01/04/25 12:25:00 Anesthesia Times Start 01/04/25 11:56:00 Stop 01/04/25 12:27:00 Last Modified By: Sherine Hanks RN 01/04/25 12:28:11 Case Attendance FT Entry 1 Entry 2 Entry 3 Case Attendee Don MARI, Yohana QUINONEZ MD, Demario TURNER, Sherine CRUZ Role Performed JACQUARD LACE WEAVER Surgeon - Primary Pipe Threader - Primary Time In 01/04/25 11:56:00 01/04/25 12:02:00 01/04/25 11:56:00 Time Out 01/04/25 12:27:00 01/04/25 12:27:00 01/04/25 12:27:00 Procedure EXTRACORPOREAL SHOCK EXTRACORPOREAL SHOCK EXTRACORPOREAL SHOCK WAVE LITHOTRIPSY(Left) WAVE LITHOTRIPSY(Left) WAVE LITHOTRIPSY(Left) Comments DR ROME SUPERVISING Last Modified By: Demario TURNER, Sherine Hanks RN, Sherine Bolanos RN 01/04/25 12:28:12 01/04/25 12:28:12 01/04/25 12:28:12 Entry 4 Entry 5 Case Attendee Nikkie BARRAGAN, Lala Romero CST, Lindsay Ahn Role Performed Scrub - Primary Scrub - Primary Time In 01/04/25 11:56:00 01/04/25 11:56:00 Time Out 01/04/25 12:27:00 01/04/25 12:27:00 Procedure EXTRACORPOREAL SHOCK EXTRACORPOREAL SHOCK WAVE LITHOTRIPSY(Left) WAVE LITHOTRIPSY(Left) Comments LUNCH RELIEF Last Modified By: Demario TURNER, Lindsay Santos CST 01/04/25 12:28:12 01/05/25 10:44:01 General Comments: LEIGHANN CARPENTER, ESWL REP, ALSO IN ATTENDANCE. YUE SWENSONoutboard motor tester Protocols FT Pre-Care Text: Implements protective measures [...] and tissue Entry 1 Skin Integrity Intact, [place], Warm, & Skin Abnormality No Dry Outcomes [...] as a result o (more content not included)...[facility] HospitalDischarge Instructionson 77-75-0356Aephsnmzv Instructions Discharge Instructions PRITIJAYKAROL A :1970 Visit Date:01/04/2025 Inpatient Discharge Instructions Your Care Team Admitting Physician - HODAN ARREGUIN, NANCY Referring Physician - NANCY QUINONEZ MD Reason [...] after procedure. F/U in 6 weeks w/ HEAD MACHINE FEEDER or PA w/ KUB, MARTIN prior. Bruising in area is expected. [...] When: Comments: 6 weeks w/ PA or HEAD MACHINE FEEDER. ANNAMARIE SALAZAR Prior Medications What How Much When Instructions Next Dose New oxycodone (Roxicodone 5 mg Tab) 1 Tablets By Mouth Every 6 hours as needed for for pain Duration: 3 Days Pickup at [facility]/pharmacy #[id number] Unchanged bacillus coagulans-inulin (Probiotic Formula (Bacillus Coagulans)) [...] Milligram By Mouth Every day Pharmacy Information [facility]/pharmacy #[id number]: [address], [place] [phone] Allergies No Known Medication Allergies Problems Ongoing [...] completing your survey. Thank you for choosing [facility]. Joi Award Nomination The JOI (Diseases Attacking the Immune SYstem) Award is an international recognition program thathonors and celebrates the skillful, compassionate care nurses provide every day. Anyone who experiences or observes amazing care being provided by a nurse is encouraged to submit a nomina (more content not included)...[facility] HospitalComment on above:Result Comment: Electronically Signed By: Harpal TURNER, My Haskins\.br\Date and Time Signed: 01/04/25 12:54 EDTInpatient Patient Summaryon 96-60-9406Pfjzbftoi Patient Summary Inpatient Patient Summary [place] [id number] [facility] Clinical Discharge Instructions PERSON INFORMATION Name: KAROL PLASCENCIA [facility]#:[id number] PHYSICIANS Admitting Physician: NANCY QUINONEZ MD Attending Physician: NANCY QUINONEZ MD PCP: Sue Erwin MD Discharge Diagnosis: Comment: PATIENT EDUCATION INFORMATION Instructions: Medication Leaflets: Follow up: With: Address: When: NANCY QUINONEZ Comments: 6 weeks w/ PA or HEAD MACHINE FEEDER. MARTIN, ANNAMARIE Prior MEDICATION LIST New Medications [id number], [address], [place] [phone], [phone] oxycodone (Roxicodone 5 mg Tab) 1 Tablets [...] Turmeric 250 Milligram By Mouth every day. Comment:[facility] HospitalMain OR PACU I Recordon 78-76-6131Vkut OR PACU I RecordMain OR PACU I Record PACU Phase I Document Type FT Summary Primary Physician: NANCY QUINONEZ MD Finalized Date/Time: 01/04/25 12:59:16 Pt. Name: KAROL PLASCENCIA/Sex: 1970 Female Med Rec #: [id number] Physician: NANCY QUINONEZ MD Financial #: [id number] Pt. Type: A Room/Bed: [facility]09/26 Admit/Disch: 01/04/25 09:33:17 - Institution: Case Times [...] Fatimah Berry RN Document Signatures Signed By: Fatimah Berry RN 01/04/25 12:59[facility]Main OR PACU II Recordon 40-36-7761Hxyn OR PACU II RecordMain OR PACU II Record PACU Phase II Document Type FT Summary Primary Physician: NANCY QUINONEZ MD Finalized Date/Time: 01/04/25 14:03:15 Pt. Name: JAY PLASCENCIAHOMERO Zepeda./Sex: 1970 Female Med Rec #: [id number] Physician: NANCY QUINONEZ MD Financial #: [id number] Pt. Type: A Room/Bed: [place] [address] Admit/Disch: 01/04/25 09:33:17 - 01/04/25 14:00:04 Institution: [...] Document Signatures Signed By: Cyndee Cuellar 01/04/25 14:03[facility]Main OR Preoperative Recordon 55-12-0059Pqdi OR Preoperative RecordMain OR Preoperative Record PreOp Document Type FT Summary Primary Physician: NANCY QUINONEZ MD Finalized Date/Time: 01/04/25 12:04:01 Pt. Name: KAROL PLASCENCIA Vincent Renteria/Sex: 1970 Female Med Rec #: [id number] Physician: NANCY QUINONEZ MD Financial #: [id number] Pt. Type: Room/Bed: [place] [address] Admit/Disch: 01/04/25 09:33:17 - Institution: Case Times [...] Signatures Signed By: Sherine Hanks RN 01/04/25 12:04[facility] HospitalOperative Report on [id number] ReportOperative Report Patient: KAROL PLASCENCIA Age: 54 years Sex: Female : 1970 Associated Diagnoses: None Author: NANCY QUINONEZ MD Procedure SURGEON: Nancy Quinoenz MD PREOPERATIVE DIAGNOSIS: Left Intrarenal stone POSTOPERATIVE [...] for follow up appointment and follow up [facility] HospitalComment on above:Result Comment: Electronically Signed By: HODAN ARREGUIN, NANCY\.tamika\Date and Time Signed: 01/04/25 12:33 EDTOutpatient Surgery Discharge Instructionon 82-03-6744Rlofpszwcy Surgery Discharge InstructionOutpatient Surgery Discharge Instruction [place] [id number] Patient Discharge Instructions PERSON INFORMATION Name: KAROL PLASCENCIA Date of : 1970 Current Date: 01/04/2025 11:58:40 PHYSICIANS Admitting Physician: HODAN ARREGUIN, NANCY Discharge Diagnosis: KAROL PLASCENCIA has been given [...] expected after procedure F/Uin 6 weeks w/ HEAD MACHINE FEEDER or PA w/ [facility], MARTIN prior Bruising in area is expected IF UNABLE TO CONTACT YOUR PHYSICIAN AND YOU FEEL IT IS AN EMERGENCY, GO TO THE NEAREST EMERGENCY ROOM OR CALL 911 IAUBREEKAROL BRUNNER, have received the attached patient education materials/instructions and have verbalized understanding: May we do a follow up call? Yes No I was present when discharge instructions were given Patient Signature Date Clinican/Nurse Signature Date Follow up: With: Address: When: NANCY LAYNEJENNYMELVINHUMPHREY Comments: 6 weeks w/ PA or HEAD MACHINE FEEDER. ANNAMARIE SALAZAR Prior Pharmacy Information: You may receive a survey from [employer] asking you to rate your care experience. Your feedback is important and will help us understand what we do well and how we can improve the quality of care we provide to you, your loved ones and our community. It???s an honor to serve you. Thank you for choosing [facility] HERE ARE THE MEDICATION CHANGES THAT OCCURRED DURING YOUR HOSPITAL STAY New Medications [id number], [address], [place] [id number], [phone] oxycodone (Roxicodone 5 mg Tab) 1 Tablets [...] every day. PATIENT EDUCATION INFORMATION Instructions: Medication Leaflets:[facility] HospitalXR Abdomen 1 Viewon [id number] Abdomen 1 ViewExam Date/Time: 01/04/2025 09:51 EDT [...] Homer Bhandari DO Transcribed by: ARMINDA Technologist: PettyHighland District HospitalCalculus Analysison 17-37-9250DW Oxalate, Lejkavea975 %Invalid Interpretation [facility] CenterComment on above:Performed By: #### [id number] ####[facility] [address] [place], [place] [address]Ifbtg (U)Brown Invalid Interpretation [facility] Medical CenterComment on above:Performed By: #### [id number] ####[place] [address] [place], [place] [address]Ecqloqp 2CommentInvalid Interpretation [facility] Medical CenterComment on above:Result Comment: Calculus received wet. Wet calculi must be dried before analysis, which delays reporting of results. Leaving calculi wet (such as water, saline, blood, urine) may lead to changes in composition. Performed at: [address] [id number] PhD Fatmata VENTURAerformed By: #### [id number] ####[facility] [address] [place], [place] [address]Ngyz:1x1Lvbpslw Interpretation [facility] CenterComment on above:Result Comment: Single piece received.Performed By: #### [id number] ####[facility] [address] [place], [place] [address]Vmwpi SourceCommentInvalid Interpretation [facility] Medical CenterComment on above:Result Comment: Right UreterPerformed By: #### [id number] ####[facility] [address] [place], [place] [address]Sjdrtz Calculus Mhivhrko41 mgInvalid Interpretation [facility] Medical CenterComment on above:Performed By: #### [id number] ####[facility] [address] [place] [address]Viqq OR Intraoperative Recordon 59-41-1995Mfhj OR Intraoperative Record Main OR Intraoperative Record IntraOp Document Type FT Summary Primary Physician: NANCY QUINONEZ MD Finalized Date/Time: 12/09/24 09:23:32 Pt. Name: KAROL PLASCENCIA/Sex: 1970 Female Med Rec #: [id number] Physician: NANCY QUINONEZ MD Financial #: [id number] Pt. Type: A Room/Bed: [place] [address] Admit/Disch: 12/07/24 09:02:54 - 12/07/24 13:05:00 Institution: Case Times FT Entry 1 Patient Times In Room 12/07/24 10:59:00 Out Room 12/07/24 11:31:00 Procedure Times Start 12/07/24 11:10:00 Stop 12/07/24 11:27:00 Anesthesia Times Start 12/07/24 10:59:00 Stop 12/07/24 11:31:00 Last Modified By: Brien Singh RN 12/07/24 11:30:53 Case Attendance FT Entry 1 Entry 2 Entry 3 Case Attendee Drake Hollis CRNA, MD, Brien Singh RNABENA Role Performed JACQUARD LACE WEAVER Surgeon - Primary Pipe Threader - Primary Time In 12/07/24 10:59:00 12/07/24 11:08:00 12/07/24 10:59:00 Time Out 12/07/24 11:31:00 12/07/24 11:31:00 12/07/24 11:13:00 Procedure CYSTOSCOPY RETROGRADE CYSTOSCOPY RETROGRADE CYSTOSCOPY RETROGRADE STENT INSERTION(Right), STENT INSERTION(Right), STENT INSERTION(Right), CYSTOSCOPY W/ HOMIUM CYSTOSCOPY W/ HOMIUM CYSTOSCOPY W/ HOMIUM LASER(Right) LASER(Right) LASER(Right) Comments , anesthesia out for lunch at 1113 supervisor knitting Last Modified By: Samantha TURNER, Brien Singh RN, Brien Singh RN, Brien Miner 12/07/24 11:34:07 12/07/24 11:34:07 12/07/24 11:34:07 Entry 4 Entry 5 Entry 6 Case Attendee King BARRAGAN, Jodie Hanks RN, Sherine Shannon RT(R), Sonya Rouse Role Performed Scrub - Primary Pipe Threader - Relief [employer] Research Associate Time In 12/07/24 10:59:00 12/07/24 11:07:00 12/07/24 11:08:00 Time Out 12/07/24 11:31:00 12/07/24 11:31:00 12/07/24 11:31:00 Procedure CYSTOSCOPY RETROGRADE CYSTOSCOPY RETROGRADE CYSTOSCOPY RETROGRADE STENT INSERTION(Right), STENT INSERTION(Right) STENT INSERTION(Right), CYSTOSCOPY W/ HOMIUM CYSTOSCOPY W/ HOMIUM LASER(Right) LASER(Right) Comments Last Modified By: Samantha TURNER, Brien Singh RN, Brien Singh RN, Brien Miner 12/07/24 11:34:07 12/07/24 11:34:07 12/07/24 11:34:07 General Comments: Lio Nacne- from [employer] in OR for case to operate laser. [...] ARREGUIN, Samantha CRUZ RN, Brien Miner, King [employer] STATISTICAL PROGRAMMER, Demario Zamora RN, Shiva Friend RT(R), Sonya [...] Clean-Contaminated 2 - Clean-Contaminated Last Modified By: Brien Singh RN, RN, Andrea L 12/07/24 11:34:41 12/07/24 11:34:48 General Case Data FT Pre-Care Text: Classifies surgical wound, implements aseptic technique, initiates traffic control Entry 1 Case Information OR OR 1 FT Case Level Level 3 Wound Class 2 - Clean-Contaminated Specialty Anesthesia ASA Class 2 Preop Diagnosis RIGHT URETERAL STONE Postop Same As Preop Yes Postop Diagnosis RIGHT URETERAL STONE Outcomes Met? Y (more content not included)...[facility] HospitalDischarge Instructionson 12-07-2024 Discharge InstructionsDischarge Instructions KAROL [...] for pain Duration: 2 Days Pickup at [facility]pharmacy #[id number] New phenazopyridine (Pyridium 100 mg Tab) 1 Tablets By Mouth 3 times a day Duration: 3 Days Pickup at [facility]pharmacy #6177 Unchanged bacillus coagulans-inulin (Probiotic Formula (Bacillus [...] times a day Duration: 30 Days Unchanged [facility] Information [facility]pharmacy #[id number]: [address], [place] [phone] Allergies No Known Medication Allergies Problems Ongoing [...] Implanted CYSTOSCOPY RETROGRADE STENT INSERTION Ureter R EARL URETERAL STENT CASCADE 6FR 12/07/2024 Education Materials [...] completing your survey. Thank you for choosing [facility]. Joi Award Nomination The JOI (Diseases Attacking the Immune SYstem) Award is an international recognition program thathonors and celebrates the skillful, compassionate care nurses provide every day. A (more content not included)...[facility] HospitalComment on above:Result Comment: Electronically Signed By: Harpal TURNER, My Haskins\.br\Date and Time Signed: 12/07/24 11:56 EDTInpatient Patient Summaryon 67-09-6257Zbpjqfwxs Patient SummaryInpatient Patient Summary [place] [address] [facility] Clinical Discharge Instructions PERSON INFORMATION Name: KAROL PLASCENCIA PHYSICIANS Admitting Physician: NANCY QUINONEZ MD Attending Physician: NANCY QUINONEZ MD PCP: Sue Erwin MD Discharge Diagnosis: Comment: PATIENT EDUCATION INFORMATION Instructions: Medication Leaflets: Follow up: With: Address: When: NANCY QUINONEZ MEDICATION LIST New Medications [facility] #[id number], [address], [place] [id number], [phone] oxycodone (Roxicodone 5 mg Tab) 1 Tablets [...] a day for 30 Days. Refills: 1. Sarah Comment:[facility] HospitalMain OR PACU I Recordon 71-91-8407Sczg OR PACU I RecordMain OR PACU I Record PACU Phase I Document Type FT Summary Primary Physician: NANCY QUINONEZ MD Finalized Date/Time: 12/07/24 12:10:07 Pt. Name: KAROL PLASCENCIA/Sex: 1970 Female Med Rec #: [id number] Physician: NANCY QUINONEZ MD Financial #: [id number] Pt. Type: A Room/Bed: [place] [address] Admit/Disch: 12/07/24 09:02:54 - Institution: Case Times [...] Signatures Signed By: Chuyita Velasquez RN 12/07/24 12:10[facility] HospitalOperative Reporton [id number] ReportOperative Report Patient: KAROL PLASCENCIA Age: 54 [...] in the room agreed. A well-lubricated 22 Mosotho cystoscopic sheath witha 30 degree lens was [...] Pyridium for stent discomfort Post stenting 5 daysNoHighland District HospitalComment on above:Result Comment: Electronically Signed By: HODAN ARREGUIN, NANCY\.tamika\Date and Time Signed: 12/07/24 11:35 EDTOutpatient Surgery Discharge Instructionon 12-07-2024 Outpatient Surgery Discharge InstructionOutpatient Surgery Discharge Instruction [place] [id number] Patient Discharge Instructions PERSON INFORMATION Name: KAROL PLASCENCIA Date of : 1970 Current Date: 12/07/2024 11:36:27 PHYSICIANS Admitting Physician: HODAN ARREGUIN, NANCY Discharge Diagnosis: KAROL PLASCENCIA has been given [...] THE NEAREST EMERGENCY ROOM OR CALL 911 IPRITI BARBARA A, have received the attached patient [...] to serve you. Thank you for choosing [facility] HERE ARE THE MEDICATION CHANGES THAT OCCURRED DURING YOUR HOSPITAL STAY New Medications [id number], [address], [place] [id number], [phone] oxycodone (Roxicodone 5 mg Tab) 1 Tablets [...] day for 30 Days. Refills: 1. Turmeric PATIENT EDUCATION INFORMATION Instructions: Medication Leaflets:[facility] HospitalXR Abdomen 1 Viewon [id number] Abdomen 1 ViewExam Date/Time: 12/07/2024 11:29 EDT [...] Ari Bonner MD Transcribed by: ARMINDA Technologist: [facility] HOSPITALPettyHighland District HospitalUrology Office/Clinic Noteon 39-28-2845Jswhoxd Office/Clinic NoteUrology Office/Clinic Note Chief Complaint ER followup HPI Staff Follow up to Hospital follow up. Pt was seen at [facility] 11/14/[address] to abdominal pain [address] SCAN [...] f/u due to R UPJ stone. PMH: ND no. CVA no. DVT no. PE no. [...] LLP calculus. No L hydro. [facility]UB 12/03/24 [facility] - Report pending. Personal review: bowel contents [...] intrarenal stone. Follow-up With When Contact Information NANCY QUINONEZ MD, URL Additional Instructions: sched cysto, R URS, laser litho, possible stent Patient Education Ureteroscopy IMuna, personally scribed for Dr. Quinonez on 12/03/2024 13:59:29. . Portions of this record may have been created with voice recognition artificial intelligence software, specifically [employer], [employer] and or [employer]. Substitutions may have occurred due to t (more content not included)...[facility] HospitalComment on above:Result Comment: Electronically Signed By: NANCY QUINONEZ MD\.br\Date and Time Signed: 12/03/24 15:48 EDT\.br\Electronically Co-Signed By: Muna Cuevas.tamika\Date and Time Co-Signed: 12/03/2513:00 EDTXR Abdomen 1 Viewon [id number] Abdomen 1 ViewExam Date/Time: 12/03/2024 13:31 EDT Reason for Exam: Kidney stone Report IMPRESSION: NONSPECIFIC ABDOMEN. CLINICAL HISTORY: Kidney stone COMPARISON: 12/10/2021 FINDINGS: Gas and stool in colon. Gas in small bowel. No focal or diffuse small bowel dilatation, mass effect, abnormal calcification. Osseous structures intact. Technical Comments: Kamasood in mGy = n.a DAP = n.a Ordering Provider: NANCY QUINONEZ FINAL REPORT Dictated: 12/03/2024 3:40 pm Ari Bonner MD Signed (Electronic Signature): 12/03/2024 3:40 pm Signed by: Ari Bonner MD Transcribed by: ARMINDA Technologist: [facility] HospitalUrine Cultureon [id number] identified Cx Nom (U)ORGANISM: Escherichia coli (O:ESCCOL) [place] Count >100,000 Aerobic BETH Charge (NMIC56) SUSCEPTIBILITY [...] RESISTANT TO ALL B-LACTAM DRUGS. PERFORMED BY: [place] [id number] PATHOLOGIST CARDIOVASCULAR SURGICAL TECH JOSE ENRIQUE CASEY M.D.[facility] Pun[facility] Gorda Physician GroupComment on above: Performed By: #### CUU #### [place] [id number] USACytology Reporton [id number] report Cyto stain.thin prep Doc (Cvx/Vag)(NOTE) Path Number: [id number] DIAGNOSIS Imaged ThinPrep Pap - Cervical (1 monolayer slide): Specimen Adequacy: Satisfactory for evaluation. - Endocervical/transformation zone component present. Descriptive Diagnosis: Negative for intraepithelial lesion or malignancy. Cytotech Screener: EY Electronically Signed Out Margot AGUSTIN(ASCP) ey/07/26/2024 Source of Specimen: A: Imaged ThinPrep Pap - Cervical (1 monolayer slide) HPV Reflex?......................HPV if Abnormal Clinical History Postmenopausal Z01.419 Routine branch examiner exam without abnormal findings LMP: 01/23/2016 Processing Lab: [address] [id number] Interpretation performed at [address] [id number] This Pap Test has been evaluated with [...] GYNECOLOGIC CYTOLOGY REPORT Patient Name: KAROL PLASCENCIA Med Rec: [id number] [facility] ANATOMIC PATHOLOGY [address] [place] [address]. [place], [place] [id number] NoProMedica Bay Park HospitalAmbulatory Visit Summaryon 90-41-1231Yweyrlnqjg Visit SummaryAmbulatory Visit Summary KAROL PLASCENCIA :1970 Visit Date:02/02/2024 Ambulatory Visit Instructions Your Care Team Primary Care Physician - Sue Erwin MD This Is Your Medications List [...] you for choosing us for your care. [facility] 35-39-1032Fdudlsuem Reminders From: Glenys Zimmer To: EU - Administrative; Sent: 02/02/2024 08:26:12 EDT Show up: 05/30/2025 08:17:00 EST Subject: 18 mo appt Due Date/Time: 08/01/2025 08:17:00 EDT Reminder/Recall SCHEDULE KAROL PLASCENCIA IN 18 MO [address] Nielsen [facility] CenterUrology Office/Clinic Noteon 61-78-7259Ipfdfnl Office/Clinic NoteUrology Office/Clinic Note Chief Complaint 1 year follow up HPI Staff 1 yr with [facility] Previous Dx: kidney stone. S/p litholink 08/12/22. [...] Information MANNIE ARREGUIN, Jordi Mckeon, URL [address] [place] [address] Additional Instructions: 1.5 yrs with [facility] Patient [...] with voice recognition artificial intelligence software, specifically Ar[employer]CAD, [employer] and or [employer]. Substitutions may have occurred due to the [...] (COVID-19) mRNA-1273 vaccine (more content not included)...Normal [facility] HospitalComment on above:Result Comment: Electronically Signed By: Jordi CHAND MD\.br\Date and Time Signed: 02/02/24 08:14 EDT\.br\Electronically Co-Signed By: Manjula Sheikh\.br\Date and Time Co- Signed: 02/02/24 08:13 EDTAlanine aminotransferase [Enzymatic activity/volume] in Serum or PlasmaOrdered By: Shubham Rodrigues on 74-94-5790BCV [Catalytic activity/Vol]27 U/L7-52[facility] Medical CenterAlbumin [Mass/volume] in Serum or Plasma by Bromocresol green (BCG) dye binding methoOrdered By: Shubham Rodrigues on 26-09-8377Nexgqyw BCG dye [Mass/Vol]3.9 g/dL3.5-5.7FBerger HospitalAlkaline phosphatase [Enzymatic activity/volume] in Serum or PlasmaOrdered By: Shubham Rodrigues on 24-53-4335HIC [Catalytic activity/Vol]138 U/L 34-104Fair[facility] Medical CenterAspartate aminotransferase [Enzymatic activity/volume] in Serum or PlasmaOrdered By: Shubham Rodrigues on 02-45-6654HAC [Catalytic activity/Vol]20 U/L81-12EnacugowiFairfield Medical CenterBasophils Auto (Bld) [#/Vol]Ordered By: Shubham Olexa on 79-80-2259Szrtragsc (Bld) [#/Vol] 0.1 10*3/uL0.0-0.2FBerger HospitalBasophils/100 WBC Auto (Bld) Ordered By: Shubham Olexa on 74-46-6617Xtnejqifn/100 WBC (Bld)0.8 %.[facility] Medical CenterBilirubin.total [Mass/volume] in Serum or PlasmaOrdered By: Shubham Rodrigues on 35-16-8377Jsvbaudhe [Mass/Vol]0.4 mg/dL0.3-1.0[facility] CenterCalcium [Mass/volume] in Serum or PlasmaOrdered By: Shubham Bullockxa on 00-29-0612Fcppnax [Mass/Vol]9.1 mg/dL8.6-10.3FBerger HospitalCarbon dioxide, total [Moles/volume] in Serum or PlasmaOrdered By: Shubham Rodrigues on 86-63-2507KT0 [Moles/Vol]30.2 mmol/L21.0-31.0[facility] Medical CenterChloride [Moles/volume] in Serum or PlasmaOrdered By: Shubham Rodrigues on 06-99-7787Zpcrckms [Moles/Vol]104 mmol/F39-932CbwgjibaxFairfield Medical CenterCreatinine [Mass/volume] in Serum or PlasmaOrdered By: Shubham Olexa on 12-97-1920Vdxsuvceps [Mass/Vol]0.69 mg/dL0.60-1.20[facility] Medical CenterEosinophils Auto (Bld) [#/Vol]Ordered By: Shubham Olexa on 20-72-2324Gkesxlzbyvm (Bld) [#/Vol]0.2 10*3/uL0.0-0.45Fire[facility] Regional Medical CenterEosinophils/100 WBC Auto (Bld)Ordered By: Shubham Rodrigues on 12-25-2022 Eosinophils/100 WBC (Bld)3.0 %.[facility] Medical CenterErythrocyte distribution width Auto (RBC) [Ratio]Ordered By: Shubham Rodrigues on 12-25-2022 Erythrocyte distribution width (RBC) [Ratio]14.4 %11.9-15.3FBerger HospitalGlobulin Calc (S) [Mass/Vol]Ordered By: Shubham Rodrgiues on 12-25-2022 Globulin (S) [Mass/Vol]2.8 g/dLFairfield Medical CenterGlucose [Mass/volume] in Serum or PlasmaOrdered By: Shubham Rodrigues on 13-93-9081Gtwmqnn [Mass/Vol]99 mg/jR16-398FzniosntfFairfield Medical CenterHematocrit Auto (Bld) [Volume fraction]Ordered By: Shubham Rodrigues on 51-04-5812Wmbjifoxee (Bld) [Volume fraction]39.1 %34.0-46.4FBerger HospitalHemoglobin [Mass/volume] in BloodOrdered By: Shubham Rodrigues on 19-79-7045Gljukehsck (Bld) [Mass/Vol]13.0 g/dL11.8-15.4FBerger HospitalLeukocytes [#/volume] corrected for nucleated erythrocytes in Blood by Automated coun Ordered By: Shubham Rodrigues on 70-86-1242INL corrected for nucl RBC Auto (Bld) [#/Vol]6.8 10*3/uL3.8-11.6FBerger HospitalLymphocytes Auto (Bld) [#/Vol]Ordered By: Shubham Rodrigues on 25-56-6013Ygsznzwvtho (Bld) [#/Vol]1.5 10*3/uL1.00-4.8[facility] Medical CenterLymphocytes/100 WBC Auto (Bld) Ordered By: Shubham Rodrigues on 87-10-2361Nzfdjidepzf/100 WBC (Bld)22.8 %.[facility] Medical CenterMCH Auto (RBC) [Entitic mass]Ordered By: Shubham Rodrigues on 53-12-0947XKA (RBC) [Entitic mass]28.9 pg24.7-34.3FBerger HospitalMCHC Auto (RBC) [Mass/Vol]Ordered By: Shubham Rodrigues on 30-15-1229CKIJ (RBC) [Mass/Vol]33.2 g/dL32.0-35.0[facility] Medical CenterMCV Auto (RBC) [Entitic vol]Ordered By: Shubham Rodrigues on 52-13-8466UMB (RBC) [Entitic vol]86.9 bI88-918EjtsspuhwFairfield Medical CenterMonocytes Auto (Bld) [#/Vol]Ordered By: Shubham Bullockxa on 46-84-1086Vpkvwdhya (Bld) [#/Vol]0.3 10*3/uL0.0-0.8[facility] Medical CenterMonocytes/100 WBC Auto (Bld)Ordered By: Shubham Rodrigues on 10-23-8761Zekporqmv/100 WBC (Bld)4.8 %.[facility] Neutrophils Auto (Bld) [#/Vol]Ordered By: Shubham Rodrigues on 65-21-9553Twrofmzblbv (Bld) [#/Vol]4.7 10*3/uL1.8-7.7FBerger HospitalNeutrophils/100 WBC Auto (Bld)Ordered By: Shubham Rodrigues on 07-83-0213Oyvvaymexoq/100 WBC (Bld) 68.6 %.[facility] Medical CenterNo Panel InformationOrdered By: Shubham Rodrigues on 57-56-1829Cewuuimtm GFR (CKD-EPI)> 60.0 mL/MinFairfield Medical CenterPharmacy Creatinine Clearance (ChemN/AFBerger HospitalNucleated erythrocytes [Presence] in Blood by Automated countOrdered By: Shubham Rodrigues on 52-74-9305Tawsuochw RBC Auto Ql (Bld)0.1 /100{WBC}0-0.5FBerger HospitalPlatelet mean volume Auto (Bld) [Entitic vol]Ordered By: Shubham Rodrigues on 30-27-7561Wyanjvkq mean volume (Bld) [Entitic vol]7.2 fL6.3-10.7 [facility] Medical CenterPlatelets Auto (Bld) [#/Vol]Ordered By: Shubham Rodrigues on 05-57-1545Nfbdtrtkn (Bld) [#/Vol]334 10*3/vA113-902SlujmcdgeFairfield Medical CenterPotassium [Moles/volume] in Serum or PlasmaOrdered By: Shuhbam Rodrigues on 76-23-9713Ypxioqfsa [Moles/Vol]4.2 mmol/L3.5-5.1FBerger HospitalProtein [Mass/volume] in Serum or PlasmaOrdered By: Shubham Rodrigues on 55-88-1940Nvmobjs [Mass/Vol]6.7 g/dL6.4-8.9[facility] RBC Auto (Bld) [#/Vol]Ordered By: Shubham Rodrigues on 39-58-0827RTB (Bld) [#/Vol] 4.50 10*6/uL3.60-5.00[facility] Akron Generalerum or plasma albumin/globulin mass ratioOrdered By: Shubham Rodrigues on 12-25-2022 Albumin/Globulin [Mass ratio]1.4 {ratio}[facility] Generalerum or plasma anion gap determinationOrdered By: Shubham Rodrigues on 47-73-3969Czzmp gap [Moles/Vol]10.0 mmol/L6.0-15.0[facility] Generalodium [Moles/volume] in Serum or PlasmaOrdered By: Shubham Rodrigues on 72-10-6695Tbdllp [Moles/Vol]140 mmol/D421-306DacsaqhhkFairfield Medical CenterUrea nitrogen [Mass/volume] in Serum or PlasmaOrdered By: Shubham Rodrigues on 78-66-6811Qaws nitrogen [Mass/Vol]18 mg/dL7-25Fair[facility] Medical CenterWBC Auto (Bld) [#/Vol]Ordered By: Shubham Rodrigues on 65-01-2160QBZ (Bld) [#/Vol]6.8 10*3/uL 3.8-11.6FBerger HospitalPTH INTACTon 77-52-1122BLG, Kvcwjb87 pg/vECtbaun76-84Ctr [facility] Medical CenterComment on above:Performed By: #### PTHINT ####[facility] [address] [place] [address]Dr. Mikaela Mckenzie 12-72-8155Ontq nitrogen [Mass/Vol]12.0 mg/dLNormal7.0-18.0The [facility] Medical CenterComment on above:Performed By: #### CA, K, CL, BUN, URIC, CO2, CREA, NA ####[facility] [address] [place] [address]Dr. Mikaela CaldwellCALCIUMon 84-45-1850Sirwmks [Mass/Vol]9.0 mg/dLNormal 8.5-10.1The [facility] Medical CenterComment on above:Performed By: #### CA, K, CL, BUN, URIC, CO2, CREA, NA ####[facility] [address] [place], [place] [address]Dr. Mikaela CaldwellCHLORIDEon 91-03-3694Savomyrc [Moles/Vol]107 mmol/UZsocdv30-773Dxz [facility] Willard Hospitalment on above:Performed By: #### CA, K, CL, BUN, URIC, CO2, CREA, NA ####[facility] Cphxex[address] [place], [place] [address]Dr. Mikaela ZmevyMZ8cg 04-10-4085WL4 [Moles/Vol]29.7 mmol/JPnczgv39.0-32.0The [facility] on above:Performed By: #### CA, K, CL, BUN, URIC, CO2, CREA, NA ####[facility] Lxiafcbyri[address] [place], [place] [address]Dr. Mikaela Caldwell CREATININEon 21-50-5943Rdguuutwhz [Mass/Vol]0.85 mg/dLNormal0.55-1.02The [facility] on above:Performed By: #### CA, K, CL, BUN, URIC, CO2, CREA, NA ####[facility] Eqj[address] [place], [place] [address]Dr. Yilan ChangEGFR-AF SOMALI>60Normal>=60The [facility] Willard Hospitalment on above:Performed By: #### CA, K, CL, BUN, URIC, CO2, CREA, NA ####[facility] K[address] [place], [place] [address]Dr. Yilan ChangEGFR- NON AF SOMALI>60Normal>=60The [facility] Medical CenterComment on above:Performed By: #### CA, K, CL, BUN, URIC, CO2, CREA, NA ####[facility] [address] [place] [address]Dr. Mikaela ChangNAon 86-13-1099Dxepzm [Moles/Vol]142 mmol/AKmbsff199-136Fkn [facility] CenterComment on above: Performed By: #### CA, K, CL, BUN, URIC, CO2, CREA, NA ####[facility] [address] [address]Dr. Mikaela CaldwellPOTASSIUMon 37-82-9598Fojaaxixe [Moles/Vol]3.9 mmol/LNormal3.5-5.1[facility] Comment on above:Performed By: #### CA, K, CL, BUN, URIC, CO2, CREA, NA ####[facility] [address] [address]Dr. Mikaela CaldwellURIC ACID SERUMon 04-56-8474Glozf [Mass/Vol]3.8 mg/dLNormal2.6-6.0[facility] CenterComment on above:Performed By: #### CA, K, CL, BUN, URIC, CO2, CREA, NA ####[facility] [address] [address]Dr. Mikaela CaldwellXR KUB 1 VIEWon 22-83-5940RK KUB 1 VIEWEXAMINATION: XR KUB 1 VIEW [...] Electronically authenticated by: ZENAIDA TALBOT Date: 2022-07-18 09:03[facility] THYROIDon 51-75-1716JG THYROIDEXAMINATION: US THYROID HISTORY: Non-toxic uninodular goiter [...] IMPRESSION: Bilateral stable thyroid nodules TI-RADS: The [employer] TI-RADS committee's white paper recommendations for thyroid lesions classified as TR4 (moderately suspicious) are listed below: > 1.0 cm. Follow-up ultrasound in 1, 2, 3, and 5 years. > 1.5 cm. FNA. J. Am Ellen Radiol 2017;14:587-595. Electronically authenticated by: KODY GARRISON Date: 2022-05-15 11:[address] [place] [address] MAMM SCREEN 3D ANN-MARIE CADon [id number] MAMM SCREEN 3D ANN-MARIE CAD Patient: KAROL PLASCENCIA Exam Date: 03/27/2022 : 1970 Gender:F Ordering : DR SUE ERWIN . Admission #: [id number] Family : Order #: [id number] CLICK HERE TO VIEW EXAM RADIOLOGY REPORT [...] prostate cancer at age 67. LOCATION: [facility] BREAST COMPOSITION: Heterogeneously dense,which may [...] by: Zenaida Talbot M.D. on 03/27/2022 at 15:33[facility] Methodist HospitalAmmonium urate crystals detection in stone by infrared spectroscopy Ordered By: Jordi Chand on 08-75-5868Yscuuyyk urate crystals Infrared spectroscopy Ql (Stone)N/[facility] HospitalCalcium bilirubinate measurementOrdered By: Jordi Chand on 18-80-8029Szbsxln bilirubinate (Stone) [Mass fraction]N/[facility] HospitalCalcium carbonate measurement Ordered By: Jordi Chand on 40-37-3519Epsxqdb carbonate (Stone) [Mass fraction] N/[facility] HospitalCalcium hydrogen phosphate dihydrate/Total in StoneOrdered By: Jordi Chand on 98-25-6918Qwxhfxf hydrogen phosphate dihydrate (Stone) [Mass fraction]N/[facility] HospitalCalcium oxalate dihydrate crystals detection in stone by infrared spectroscopyOrdered By: Jordi Chand on 27-01-2339Higjhih oxalate dihydrate crystals Infrared spectroscopy Ql (Stone)20 %.[facility] CenterCalcium oxalate monohydrate/Total in StoneOrdered By: Jordi Chand on 77-58-5232Eqnjaxv oxalate monohydrate (Stone) [Mass fraction]80 %.[facility] CenterCalcium phosphate measurementOrdered By: Jordi Chand on 18-40-1710Zxexzwx phosphate (Stone) [Mass fraction]N/[facility] HospitalCalculus analysis interpretation in stoneOrdered By: Jordi Chand on 15-82-9506Rdlakovv analysis [Interp]N/[facility] HospitalCalculus analysis [Interp]See comment.[facility] CenterComment on above:Calculus received in liquid. Wet calculi must be dried before analysis, which delays reporting of results. Leaving calculi in liquid (such as water, saline, blood, urine) may lead to changes in composition.Physician questions regarding Calculi Analysis contact [facility] at: [phone].Calculi report will follow via computer, mail or site safety coordinator delivery.Calculus analysis with calculus photography interpretation in stone Ordered By: Jordi Chand on 57-80-4522Mbnoihmd analysis with calculus photography [Interp]See comment.[facility] CenterComment on above:Photograph will follow under a separate coverCellular material measurement in stone by estimated (mass/mass)Ordered By: Jordi Chand on 76-02-5656Qddgbpae material Est (Stone) [Mass/Mass][facility] Cholesterol/Total in StoneOrdered By: Jordi Chand on 39-72-9756Vxscjhixatv (Stone) [Mass fraction][facility] HospitalComposition of stone Ordered By: Jordi Chand on 93-89-3853Rwmaylwjfre Nom (Stone)See comment. [facility] CenterComment on above:Percentage (Represents the % composition)Cystine measurementOrdered By: Jordi Chand on 88-02-2221Orrmlya (Unsp spec) [Moles/Vol]/[facility] HospitalDetermination of color of calculusOrdered By: Jordi Chand on 69-44-5924Yvgke (Stone)Brown. [facility] Medical CenterHydroxyapatite [Energy Difference] in 24 hour UrineOrdered By: Jordi Chand on 76-00-1576Xryecorinyjbtt (24H U) [Energy diff] [facility] HospitalMeasurement of proportion of calculus composed of dried blood (mass/mass)Ordered By: Jordi Chand on 12-21-2021 Blood.dried (Stone) [Mass fraction][facility] Newberyite/Total in StoneOrdered By: Jordi Chand on 52-96-6003Mvbgoxvuvt (Stone) [Mass fraction][facility] HospitalNo Panel Information Ordered By: Jordi Chand on 74-03-2370Vhscs 2,8 DihydroxyadenineN/[facility] Centertone Analysis DisclaimerSee comment.[facility] CenterComment on above:This test was developed and its performance characteristics determined by [employer]. It has not been cleared or approved by the Food and Drug Administration. Performed at: [facility] Stone Analysis [address] [place] [address] [address], [place], [place] [id number] [employer]: Jayson Santos PhD, Phone: [phone] BilirubinateN/[facility] Medical Centertone Calcium PalmitateN/[facility] Centertone Calcium StearateN/[facility] Centertone Carbonate ApatiteN/[facility] Centertone Drug or MetaboliteN/[facility] Centertone Other ConstituentN/[facility] Medical Centertone XanthineN/[facility] Medical Centerize [Entitic volume] of StoneOrdered By: Jordi Chand on 48-05-8665Onji (Stone) [Entitic vol]5x3 mm. [facility] CenterComment on above:Multiple pieces received. Dimensions of the largest piece reported.Sodium urate crystals detection in stone by infrared spectroscopy Ordered By: Jordi Chand on 89-91-8212Pkpiae urate crystals Infrared spectroscopy Ql (Stone)N/[facility] Medical Centerpeccritical access hospitaln source subject [Type]Ordered By: Jordi Chand on 67-90-5291Cziitsym source subject Nom See comment.[facility] CenterComment on above:Left Ureter Triamterene measurement in calculusOrdered By: Jordi Chand on 12-21-2021 Triamterene (Stone) [Mass fraction]NA[facility]'s HospitalTriple phosphate/Total in StoneOrdered By: Jordi Chand on 29-55-7931Owktqw phosphate (Stone) [Mass fraction][facility] HospitalUric acid dihydrate crystals detection in stone by infrared spectroscopyOrdered By: Jordi Chand on 78-67-1291Ctouz dihydrate crystals Infrared spectroscopy Ql (Stone)NA[facility]'s HospitalCOVID-19 Positive/NegativeOrdered By: Jordi Chand on 82-18-8606ZLZB-CoV-2 (COVID-19) N gene ISABELLA+probe Ql (Resp)NegativeNegative [facility] CenterComment on above:Testing for SARS-CoV-2 by RT-PCR This test was developed and its performance characteristics determined by [employer] ([employer]) and validated at the [facility]. This test has not been [...] by coagulation aOrdered By: Jordi Chand on 91-03-6369fDOE Coag (PPP) [Time]40.1 s25.1-36.5FBerger HospitalBasophils Auto (Bld) [#/Vol]Ordered By: Jordi Chand on 61-76-1314Yjnmsckmz (Bld) [#/Vol]0.1 10*3/uL 0.0-0.2FBerger HospitalBasophils/100 WBC Auto (Bld)Ordered By: Jordi Chand on 98-82-0914Lmhgrbaam/100 WBC (Bld)0.8 %.[facility] CenterBlood hemoglobin measurement (mass/volume)Ordered By: Jordi Chand on 38-31-2272Usoegleibf (Bld) [Mass/Vol]12.8 g/dL11.8-15.4FBerger HospitalBlfederal medical center, [place] leukocytes automated count (number/volume)Ordered By: Jordi Chand on 43-76-4627TMH (Bld) [#/Vol]6.9 10*3/uL4.5-11.0[facility] CenterCreatinine and Glomerular filtration rate.predicted panel (S/P/Bld)Ordered By: Jordi Chand on 73-44-7586Mdmuimltrs [Mass/Vol]0.76 mg/dL 0.44-1.03[facility] Medical CenterEosinophils Auto (Bld) [#/Vol]Ordered By: Jordi Chand on 64-59-6787Rummdojzzfu (Bld) [#/Vol]0.3 10*3/uL0.0-0.45 [facility] CenterEosinophils/100 WBC Auto (Bld)Ordered By: Jordi Chand on 01-55-5657Oozzpengjjs/100 WBC (Bld)4.9 %.[facility] Medical CenterErythrocyte distribution width Auto (RBC) [Ratio]Ordered By: Jordi Chand on 10-58-4459Ajhonhjjwau distribution width (RBC) [Ratio]14.0 % 11.9-15.3FBerger HospitalEstimated glomerular filtration rate (GFR) non- AmericanOrdered By: Jordi Chand on 10-85-5863KGS/1.73 sq M.predicted among non-blacks MDRD (S/P/Bld) [Vol rate/Area]> 60 mL/MinFairfield Medical CenterHematocrit Auto (Bld) [Volume fraction]Ordered By: Jordi Chand on 61-82-7047Kgfmxuqowe (Bld) [Volume fraction]39.2 %34.0-46.4 [facility] CenterLaboratory - CoagulationOrdered By: Jordi Chand on 74-54-4008VO Coag (PPP) [Time]11.9 s9.0-12.9[facility] CenterLaboratory - Hematology and Cell countsOrdered By: Jordi Chand on 61-27-4010Psybcbwqz RBC/100 WBC (Bld) [Ratio]0.1 %0-0.5FBerger HospitalLymphocytes Auto (Bld) [#/Vol]Ordered By: Jordi Chand on 49-38-7357Hlwwxjrpawz (Bld) [#/Vol]2.0 10*3/uL1.00-4.8[facility] Medical CenterLymphocytes/100 WBC Auto (Bld)Ordered By: Jordi Chand on 12-13-2021 Lymphocytes/100 WBC (Bld)28.9 %.[facility] Medical CenterMCH Auto (RBC) [Entitic mass]Ordered By: Jordi Chand on 09-51-3959BIB (RBC) [Entitic mass]28.8 pg24.7-34.3FBerger HospitalMCHC Auto (RBC) [Mass/Vol]Ordered By: Jordi Chand on 36-80-2603APKE (RBC) [Mass/Vol]32.6 g/dL32.0-35.0[facility] CenterMCV Auto (RBC) [Entitic vol]Ordered By: Jordi Chand on 06-91-9058AII (RBC) [Entitic vol]88.1 kI08-881XorzsrohkFairfield Medical Center Monocytes Auto (Bld) [#/Vol]Ordered By: Jordi Chand on 39-19-5033Cdkfpqinh (Bld) [#/Vol]0.4 10*3/uL0.0-0.8[facility] CenterMonocytes/100 WBC Auto (Bld)Ordered By: Jordi Chand on 10-44-7674Ctxopjoqb/100 WBC (Bld)6.5 % .[facility] Medical CenterNeutrophils Auto (Bld) [#/Vol]Ordered By: Jordi Chand on 81-37-9672Jtqayxmhbnt (Bld) [#/Vol]4.1 10*3/uL1.8-7.7FBerger HospitalNeutrophils/100 WBC Auto (Bld)Ordered By: Jordi Chand on 04-36-3287Ahznadvffua/100 WBC (Bld)58.9 %.[facility] CenterNo Panel InformationOrdered By: Jordi Chand on 18-93-0983Iukvljgbo GFR ()> 60 mL/MinFairfield Medical CenterComment on above:GFR estimated reference range: According to KDOQI guidelines, <60 ml/min/1.73m2 is sufficient todiagnose a patient with chronic kidney disease.Pharmacy Creatinine Clearance (ChemN/[facility]-Rittman HospitalPlatelet mean volume Auto (Bld) [Entitic vol]Ordered By: Jordi Chand on 96-75-7606Udclerfw mean volume (Bld) [Entitic vol]7.5 fL6.3-10.7FBerger HospitalPlatelet poor plasma international normalized ratio (INR) by coagulation assay (relatOrdered By: Jordi Chand on 32-21-9159CQY Coag (PPP) [Relative time]1.1 {INR}[facility] CenterComment on above:INR Therapeutic Range A) Pre- and [...] Auto (Bld) [#/Vol]Ordered By: Jordi Chand on 22-79-0926Fsxauhvja (Bld) [#/Vol]345 10*3/uL 150-450[facility] Medical CenterRBC Auto (Bld) [#/Vol]Ordered By: Jordi Chand on 24-19-5074WZZ (Bld) [#/Vol]4.45 10*6/uL3.60-5.00[facility]ron Generalerum or plasma calcium measurement (mass/volume)Ordered By: Jordi Chand on 61-07-2831Tooxuyo [Mass/Vol]9.2 mg/dL8.2-10.2FSt. Mary's Medical Center, Ironton Campuserum or plasma chloride measurement (moles/volume) Ordered By: Jordi Chand on 86-28-6083Tkuprqoj [Moles/Vol]102 mmol/L95-114 [facility] Generalerum or plasma glucose measurement (mass/volume)Ordered By: Jordi Chand on 67-84-3893Xvdvegh [Mass/Vol]90 mg/dL 70-100[facility] CenterComment on above:ADA recommended reference range Random Glucose Reference Range is dependent on time and content of last meal. Glucose of more than 200 mg/dL in a nonstressed, ambulatory subject supports the diagnosis of Diabetes Mellitus.Serum or plasma potassium measurement (moles/volume)Ordered By: Jordi Chand on 68-70-8994Lrlxfelxz [Moles/Vol]3.6 mmol/L3.5-5.1FSt. Mary's Medical Center, Ironton Campuserum or plasma sodium measurement (moles/volume)Ordered By: Jordi Chand on 84-96-0217Ljbgox [Moles/Vol]139 mmol/V248-676RtzzdzukaCleveland Clinic Akron Generalerum or plasma total carbon dioxide measurement (moles/volume)Ordered By: Jordi Mannie on 57-18-7538BF2 [Moles/Vol]27.4 mmol/L22.0-30.0[facility] Generalerum or plasma urea nitrogen measurement (mass/volume)Ordered By: Jordi Mannie on 12-13-2021 Urea nitrogen [Mass/Vol]13 mg/dL9-23[facility] CenterMRI KNEE RT WO CONon 93-43-4130VUR KNEE RT WO CONEXAMINATION: MRI KNEE RT [...] Electronically authenticated by: ZENAIDA TALBOT Date: 2021-12-12 17:04[facility] 1 VIEWon 79-33-7266TJ KUB 1 VIEWEXAMINATION: XR KUB 1 VIEW [...] Electronically authenticated by: ZENAIDA TALBOT Date: 2021-12-10 07:56[facility] HospitalCOVID- SOFIAOrdered By: Jordi Chand on 11-27-2021 SARS-CoV+SARS-CoV-2 (COVID-19) Ag IA.rapid Ql (Resp)NegativeNegativeFairfield Medical CenterComment on above:This is a duplicate Mony SARS Antigen (MILES) result to be used for statistical tracking purpose only.No Panel InformationOrdered By: Jordi Chand on 22-78-2278ODGP Antigen (LFIA)[facility] Medical CenterXR KUB 1 VIEWon 06-54-7191FZ KUB 1 VIEWEXAMINATION: XR KUB 1 VIEW [...] Electronically authenticated by: ZENAIDA TALBOT Date: 2021-11-20 18:35[facility] HospitalCULTURE URINEon 19-55-4594XBSJDJJ URINEIsolate 1 Escherichia coli 75,000 cfu/mL of [...] <=16 S F Trimethoprim/Sulfamethoxazole <=20 S FNormalThe [facility] CenterComment on above:Performed By: #### CVDTBH #### [facility] [address] [place] [address] Dr. Mikaela Jones EDGARDO 3-6on 04-83-1761DD [Catalytic activity/Vol]54 U/L Ungpcl51-713ZusMercy Health Willard HospitalComment on above:Performed By: #### CVDTBH #### [facility] [address] [place] [address] Dr. Mikaela Perkins.MB [Mass/Vol]2.05 ng/mLNormal<=3.60[facility] Comment on above:Performed By: #### CVDTBH #### [facility] [address] [place] [address] Dr. Mikaela AlarconTROP6.5 pg/mLNormal4.0-51.3The [facility] CenterComment on above:Result Comment: CUT-OFF POINTS HAVE BEEN ESTABLISHED BASED ON THE FOURTH UNIVERSAL DEFINITIONS OF MYOCARDIAL INFARCTION. THE UPPER REFERENCE LIMIT (URL) OF TROPONIN, DEFINED THE 99TH PERCENTILE OF cTnI DISTRIBUTION IN A REFERENCE POPULATION, HAS BEEN CONFIRMED THE DECISION THRESHOLD FOR ND DIAGNOSIS.Performed By: #### CVDTBH #### [facility] [address] [place] [address] Dr. Mikaela Perkins [Catalytic activity/Vol]63 U/MKlusji23-853DoiMercy Health Willard HospitalComment on above:Performed By: #### CMREP #### [facility] [address] [place] [address] Dr. Mikaela Perkins.MB [Mass/Vol]2.28 ng/mLNormal<=3.60[facility] Comment on above:Performed By: #### CMREP #### [facility] [address] [place] [address] Dr. Mikaela Mckinney5.1 pg/mLNormal4.0-51.3TWood County HospitalComment on above:Result Comment: CUT-OFF POINTS HAVE BEEN ESTABLISHED BASED ON THE FOURTH UNIVERSAL DEFINITIONS OF MYOCARDIAL INFARCTION. THE UPPER REFERENCE LIMIT (URL) OF TROPONIN, DEFINED THE 99TH PERCENTILE OF cTnI DISTRIBUTION IN A REFERENCE POPULATION, HAS BEEN CONFIRMED THE DECISION THRESHOLD FOR ND DIAGNOSIS.Performed By: #### CMREP #### [facility] [address] [place] [address] Dr. Mikaela REYNOSO ADMITon 30-67-7446NX [Catalytic activity/Vol]77 U/L Mbswdl76-677YmtCleveland Clinic Hillcrest Hospital on above:Performed By: #### CMADM, LIPA, CMP #### [facility] [address] [place] [address] Dr. Mikaela Perkins.MB [Mass/Vol]2.40 ng/mLNormal<=3.60[facility] Comment on above:Performed By: #### CMADM, LIPA, CMP #### [facility] [address] [place] [address] Dr. Mikaela Mckinney5.8 pg/mLNormal4.0-51.3TUniversity Hospitals Health System on above:Result Comment: CUT-OFF POINTS HAVE BEEN ESTABLISHED BASED ON THE FOURTH UNIVERSAL DEFINITIONS OF MYOCARDIAL INFARCTION. THE UPPER REFERENCE LIMIT (URL) OF TROPONIN, DEFINED THE 99TH PERCENTILE OF cTnI DISTRIBUTION IN A REFERENCE POPULATION, HAS BEEN CONFIRMED THE DECISION THRESHOLD FOR ND DIAGNOSIS.Performed By: #### CMADM, LIPA, CMP #### [facility] [address] [place] [address] Dr. Mikaela MongeO29 ng/mLNormal9-82The Mercy Health Willard Hospitalment on above: Performed By: #### CMADM, LIPA, CMP #### [facility] [address] [place] [address] Dr. Mikaela Torres AUTO DIFFon 48-36-1169SEOR #0.1 103/ulNormal0.0-0.1The [facility] CenterComment on above:Performed By: #### CBC #### [facility] [address] [place] [address] Dr. Mikaela CaldwellBasophils/100 WBC (Bld)0.5 %Normal0.2-2.0[facility] Comment on above:Performed By: #### CBC #### [facility] [address] [place] [address] Dr. Mikaela Hobson #0.3 103/ulNormal0.0-0.7The [facility] CenterComment on above: Performed By: #### CBC #### [facility] [address] [place] [address] Dr. Mikaela Nayakosinophils/100 WBC (Bld)2.1 %Normal0.9-7.0[facility] Comment on above:Performed By: #### CBC #### [facility] [address] [place] [address] Dr. Mikaela Nayakrythrocyte distribution width (RBC) [Ratio]13.2 %Byobdb12.0-15.0 The [facility] CenterComment on above:Performed By: #### CBC #### [facility] [address] [place] [address] Dr. Mikaela CaldwellHematocrit (Bld) [Volume fraction]40.9 %Vaudiu39.0-48.0The [facility] CenterComment on above:Performed By: #### CBC #### [facility] [address] [place] [address] Dr. Mikaela CaldwellHemoglobin (Bld) [Mass/Vol]13.1 g/bMNmcknm96.0-16.0The [facility] CenterComment on above:Performed By: #### CBC #### [facility] [address] [place] [address] Dr. Mikaela Vergara #0.07 10e3/ulCritically high0.00-0.03The [facility] Comment on above:Performed By: #### CBC #### [facility] [address] [place] [address] Dr. Mikaela Vergara %0.5 %Normal0.0-0.5The [facility] CenterComment on above: Performed By: #### CBC #### [facility] [address] [place] [address] Dr. Mikaela Chen #1.8 103/ulNormal1.2-3.8The [facility] CenterComment on above:Performed By: #### CBC #### [facility] [address] [place] [address] Dr. Mikaela Rodriguezhocytes/100 WBC (Bld)12.5 %Critically low20.5-60.0The [facility] CenterComment on above:Performed By: #### CBC #### [facility] [address] [place] [address] Dr. Mikaela Goodrich DIFF REQNONormalThe [facility] CenterComment on above: Performed By: #### CBC #### [facility] [address] [place] [address] Dr. Mikaela Conte (RBC) [Entitic mass]29.2 oeTzzkex13.7-34.0The [facility] CenterComment on above:Performed By: #### CBC #### [facility] [address] [place] [address] Dr. Mikaela Spencer (RBC) [Mass/Vol]32.0 g/jCTaupif79.9-35.2The [facility] CenterComment on above:Performed By: #### CBC #### [facility] [address] [place] [address] Dr. Mikaela Spencer (RBC) [Entitic vol]91.1 oIYbswdp79.0-99.0The [facility] CenterComment on above:Performed By: #### CBC #### [facility] [address] [place] [address] Dr. Mikaela Dai #0.7 103/ulNormal0.3-0.8The [facility] CenterComment on above:Performed By: #### CBC #### [facility] [address] [place] [address] Dr. Mikaela Weissocytes/100 WBC (Bld)5.1 %Normal1.7-12.0[facility] Comment on above:Performed By: #### CBC #### [facility] [address] [place] [address] Dr. Mikaela Magaña #11.1 103/ulCritically high1.4-6.5The [facility] Comment on above:Performed By: #### CBC #### [facility] [address] [place] [address] Dr. Mikaela Guidryutrophils/100 WBC (Bld)79.3 %Critically high43.0-75.0The [facility] CenterComment on above:Performed By: #### CBC #### [facility] [address] [place] [address] Dr. Mikaela Bailon mean volume (Bld) [Entitic vol]9.2 fLCritically low 9.5-13.5The [facility] CenterComment on above:Performed By: #### CBC #### [facility] [address] [place] [address] Dr. Mikaela VilaT420 103/isCycemr888-121Wyr [facility] CenterComment on above: Performed By: #### CBC #### [facility] [address] [place] [address] Dr. Mikaela CaldwellRBC4.49 106/ulNormal4.20-5.40The [facility] CenterComment on above:Performed By: #### CBC #### [facility] [address] [place] [address] Dr. Mikaela CaldwellWBC14.0 103/ulCritically high4.0-11.0The [facility] CenterComment on above:Performed By: #### CBC #### [facility] [address] [place] [address] Dr. Mikaela Hoyt ABD/PELVIS WO CONon 53-36-1358ZE ABD/PELVIS WO CONEXAM: CT ABD/PELVIS WO CON [...] Electronically authenticated by: GEORGE SAID Date: 2021-11-13 02:57NoRegional Medical CenterCovid-19 PCR (CVDTBH)on 06-40-5307ZVRL-CoV-2 (COVID-19) RNA ISABELLA+probe Ql (Unsp spec)Not detectedNormalNOT DETECTEDThe [facility] Comment on above:Result Comment: When diagnostic testing [...] for this test is supported by the [place] of Health and Human Service's declaration that [...] longer be used).Performed By: #### CVDTBH #### [facility] [address] [place] [address] Dr. Mikaela Hartley URINE PROFILEon 11-82-2549Acenutguo Ql (U)NegativeNormal NEGATIVEMercy Health Willard HospitalComment on above:Performed By: #### ALISON UMICRO #### [facility] [address] [place] [address] Dr. Mikaela CaldwellClarity (U)CLEARNormalCLEARMercy Health Willard HospitalComment on above: Performed By: #### ALISON UMICRO #### [facility] [address] [place] [address] Dr. Mikaela Owens (U)LT. YELLOWNormalYELLOWMercy Health Willard HospitalComment on above:Performed By: #### ALISON UMICRO #### [facility] [address] [place] [address] Dr. Mikaela Serrano micrscopic examination will be performed if indicated. NormalMercy Health Willard HospitalComment on above:Performed By: #### ALISON UMICRO #### [facility] [address] [place] [address] Dr. Mikaela CaldwellGlucose Ql (U)NegativeNormalNEGATIVEMercy Health Willard HospitalComment on above:Performed By: #### ERUR, UMICRO #### [facility] [address] [place] [address] Dr. Mikaela CaldwellHemoglobin Ql (U)TRACE-INTACTAbnormalNEGATIVEMercy Health Willard HospitalComment on above:Performed By: #### ERUR, UMICRO #### [facility] [address] [place] [address] Dr. Mikaela CaldwellKetones Ql (U)NegativeNormalNEGATIVEMercy Health Willard HospitalComment on above:Performed By: #### ALISON UMICRO #### [facility] [address] [address] [address] Mikaela CaldwellLEUKOCYTESTRACEAbnormalNEGATIVEThe [facility] CenterComment on above:Performed By: #### ALISON UMICRO #### [facility] [address] [address] [address] Mikaela Moralestrite Ql (U)PositiveAbnormalNEGCleveland Clinic Mercy Hospital Comment on above:Performed By: #### ALISON UMICRO #### [facility] [address] [address] [address] Mikaela CaldwellpH (U)6.5 [pH]Normal5-9The [facility] CenterComment on above: Performed By: #### ALISON UMICRO #### [facility] [address] [address] [address] Mikaela CaldwellSPEC GRAVITY1.915Zxlgze5.005-<=1.025The [facility] CenterComment on above:Performed By: #### ALISON UMICRO #### [facility] [address] [address] [address] Mikaela Nunez PROTEINNegativermalNEGATIVE/ TRACEMercy Health [facility] Comment on above:Performed By: #### ALISON UMICRO #### [facility] [address] [address] [address] Mikaela Salazar MICRO INDINDICATEDNormalThe [facility] Medical CenterComment on above: Performed By: #### ALISON UMICRO #### [facility] [address] [address] [address] Mikaela CaldwellUrobilinogen Qn (U)0.2 {Lisa'U}/dLNormal0.2 - 1.0The [facility] CenterComhelen [facility] on above:Performed By: #### ALISON UMICRO #### [facility] [address] [address] [address] Mikaela CaldwellLACTATE/LACTIC ACIDon 69-18-3604Ncwxurs [Moles/Vol]1.2 mmol/L Normal0.4-1.9The [facility] CenterComment on above:Performed By: #### LACT ####[facility] U[address] [address]. Mikaela ZarateASEon 40-80-1548Vileua [Catalytic activity/Vol]97.0 U/LNormal 73.0-393.0The [facility] CenterComment on above:Performed By: #### CMADM, LIPA, CMP #### [facility] [address] [address] [address] Mikaela CaldwellPROF 14(COMP METB)on 40-67-2330Svlxhtu [Mass/Vol]3.5 g/dLNormal 3.4-5.0The [facility] CenterComment on above:Performed By: #### CMADM, LIPA, CMP #### [facility] [address] [address] [address] Mikaela CaldwellAlbumin/Globulin [Mass ratio]0.9 {ratio}NormalThe [facility] CenterComment on above:Performed By: #### CMADM, LIPA, CMP #### [facility] [address] [address] [address] Mikaela Durant [Catalytic activity/Vol]161 U/LCritically vmhe98-443Laj [facility] CenterComment on above:Performed By: #### CMADM, LIPA, CMP #### [facility] [address] [address] [address] Mikaela Aaron [Catalytic activity/Vol]30 U/DVzzywb36-60Yke [facility] CenterComment on above:Performed By: #### CMADM, LIPA, CMP #### [facility] [address] [address] [address] Mikaela Orlando gap [Moles/Vol]10.4 mmol/LNormalThe [facility] on above:Performed By: #### CMADM, LIPA, CMP #### [facility] [address] [address] [address] Mikaela Villatoro [Catalytic activity/Vol]17 U/LRifxfv62-46Uvr [facility] CenterComment on above:Performed By: #### CMADM, LIPA, CMP #### [facility] [address] [address] [address] Mikaela CaldwellBilirubin [Mass/Vol]0.3 mg/dLNormal0.2-1.0[facility] Comment on above:Performed By: #### CMADM, LIPA, CMP #### [facility] [address] [address] [address] Mikaela CaldwellCalcium [Mass/Vol]8.8 mg/dLNormal8.5-10.1[facility] Comment on above:Performed By: #### CMADM, LIPA, CMP #### [facility] [address] [place] [address] Dr. Mikaela CalwdellChloride [Moles/Vol]106 mmol/DFaqfyw54-362QnpMercy Health [facility] Comment on above:Performed By: #### CMADM, LIPA, CMP #### [facility] [address] [place] [address] Dr. Mikaela CaldwellCO2 [Moles/Vol]30.1 mmol/HSpkngj51.0-32.0[facility] Comment on above:Performed By: #### CMADM, LIPA, CMP #### [facility] [address] [place] [address] Dr. Mikaela CaldwellCreatinine [Mass/Vol]1.02 mg/dLNormal0.55-1.02The [facility] CenterComment on above:Performed By: #### CMADM, LIPA, CMP #### [facility] [address] [place] [address] Dr. Al ChangEGFR-AF SOMALI>60Normal>=60The [facility] CenterComment on above:Performed By: #### CMADM, LIPA, CMP #### [facility] [address] [place] [address] Dr. Mikaela NayakGFR-NON AF SZTLNPHX53 mL/min/1.49i4Hsgkjgcijy low>=60The [facility] CenterComment on above:Performed By: #### CMADM, LIPA, CMP #### [facility] [address] [address] [address] Mikaela CaldwellGlobulin (S) [Mass/Vol]4.0 g/dLNormMadison HealthComment on above:Performed By: #### CMADM, LIPA, CMP #### [facility] [address] [address] [address] Mikaela CaldwellGlucose [Mass/Vol]113 mg/dLCritically mtms31-706Fjq [facility] CenterComment on above:Performed By: #### CMADM, LIPA, CMP #### [facility] [address] [address] [address] Mikaela CaldwellPotassium [Moles/Vol]3.5 mmol/LNormal3.5-5.1The [facility] Comment on above:Performed By: #### CMADM, LIPA, CMP #### [facility] [address] [address] [address] Mikaela CaldwellProtein [Mass/Vol]7.5 g/dLNormal6.4-8.2The [facility] Comment on above:Performed By: #### CMADM, LIPA, CMP #### [facility] [address] [place] [address] Dr. Mikaela CaldwellSodium [Moles/Vol]143 mmol/UJejkin303-960Cpl [facility] Comment on above:Performed By: #### CMADM, LIPA, CMP #### [facility] [address] [address] [address] Mikaela CaldwellUrea nitrogen [Mass/Vol]18.0 mg/dLNormal7.0-18.0The [facility] CenterComment on above:Performed By: #### CMADM, LIPA, CMP #### [facility] [address] [place] [address] Dr. Mikaela Perez nitrogen/Creatinine [Mass ratio]17.6 mg/mgNoRegional Medical CenterComment on above:Performed By: #### CMADM, LIPA, CMP #### [facility] [address] [place] [address] Dr. Mikaela Rosario MICROSCOPIC ONLYon 38-74-9725CAYIRYHXDFUIAZrowxpjqXCRO SEEN [facility] on above:Performed By: #### ALISON UMICRO #### [facility] [address] [place] [address] Dr. Mikaela Roberson identified Cx Nom (U)INDICATEDNoalThGalion HospitalComhelen [facility] on above:Performed By: #### ALISON UMICRO #### [facility] [address] [place] [address] Dr. Mikaela Simms SEENNormalNONE SEENCleveland Clinic Hillcrest Hospital on above:Performed By: #### ALISON UMICRO #### [facility] [address] [place] [address] Dr. Mikaela Farrarystals LM Nom (Urine sed)NONE SEENNormalNONE SEENCleveland Clinic [facility]cre[facility] on above:Performed By: #### ALISON UMICRO #### [facility] [address] [place] [address] Dr. Al ChangEpithelial cells LM Ql (Urine sed)NONE SEENNormalNONE SEEN /RARE The [facility] CenterComhelen [facility] on above:Performed By: #### ALISON UMICRO #### [facility] [address] [place] [address] Dr. Mikaela CroweUSRIA SEENNormalNONE SEENCleveland Clinic [facility] on above:Performed By: #### ALISON UMICRO #### [facility] [address] [place] [address] Dr. Mikeala PeckAxoueEAV2-1Zvgcep5-8SlbCleveland Clinic [facility] on above:Performed By: #### ALISON UMICRO #### [facility] [address] [place] [address] Dr. Mikaela CaldwellWBC5-10AbnormalNONE SEENCleveland Clinic [facility] on above: Performed By: #### ALISON UMICRO #### [facility] [address] [place] [address] Dr. Mikaela CaldwellXR CHEST 2 Von 99-86-3529WN CHEST 2 VEXAM: XR CHEST 2 V 11/13/2021 1:52 AM EDT OH001 CLINICAL STATEMENT: Pain COMPARISON: 02/08/2020 TECHNIQUE: PA and lateral radiograph of the chest are submitted. FINDINGS: There is no acute airspace disease. The cardiac silhouette is normal. The costophrenic recesses are sharp. No pneumothorax. The bony elements are unremarkable. IMPRESSION: No acute cardiopulmonary process. Electronically authenticated by: GEORGE LLANES Date: 2021-11-13 02:46[facility] Vital Signs Date TimeVital SignValuePerforming CgzdlxczePptojack70-46-9739 08:03-0400Blood Pressure LocationLeviIntersect ENT [facility] [address] [address]-07-2024 08:03-0400Diastolic blood ugorkjcv76 mm[Hg]HeTexted [facility] [address] [address]-07-2024 08:03-0400Heart rate82 /minHeTexted [facility] [address] [address]-07-2024 08:03-0400Respiratory rate16 /minHeTexted [facility] [address] [address]-07-2024 08:03-0400Systolic blood vzywwucs094 mm[Hg]HeTexted [facility]08-24-2023 09:45-0400Body agrfrl799.1 cmThomas Olexa Other [facility] Other 08-24-2023 09:45-0400Body mass index (BMI) [Ratio] 39.27 kg/b3Sntzqz Olexa Other [facility] Other 08-24-2023 09:45-0400Body .05 kgThomas Olexa Other [employer] Other 03-27-2023 09:50-0400Blood Pressure LocationJordi CHAND [facility]03-27-2023 09:50-0400Diastolic blood lleuogns95 mm[Hg]Jordi CHAND [facility]03-27-2023 09:50-0400Heart rate72 /minJordi CHAND [facility]03-27-2023 09:50-0400Respiratory rate16 /minLevigarrett CHAND [facility]03-27-2023 09:50-0400Systolic blood xrcdqqom755 mm[Hg]Jordi CHAND [facility]08-26-2022 17:00-0400Diastolic blood mm[Hg]MD Jordi Chand Work Phone: [facility]08-26-2022 17:00-0400 Heart rate79 /minMD Jordi Chand Work Phone: [facility]08-26-2022 17:00-0400 Respiratory rate16 /minMD Jordi Chand Work Phone: [facility]08-26-2022 17:00-0400 SaO2% (BldA) [Mass fraction]100 %MD Jordi Chand Work Phone: [facility]08-26-2022 17:00-0400 Systolic blood najbmbmq626 mm[Hg]MD Jordi Chand Work Phone: [facility]08-26-2022 15:35-0400 Body gyxepa175 mgMD Jordi Chand Work Phone: [phone]08-26-2022 14:57-0400 Body ifqegz268.1 cmMD Jordi Chand Work Phone: [phone])[address]08-26-2022 14:57-0400 Body mass index (BMI) [Ratio]38.5 kg/m2MD Jordi Chand Work Phone: [phone])[address] [place], [place] 8405808-26-2022 14:57-0400 Body oexlbj866 kgMD Jordi Chand Work Phone: [phone] [place], [place] 8405808-26-2022 12:56-0400 Body tlyensrjeel49.4 [degF]MD Jordi Chand Work Phone: 1([phone])[address] [place], [place] 8405808-04-2022 14:51-0400 Diastolic blood bswgqtup46 mm[Hg]MD Jordi Chand Work Phone: 1(520)[address] [place], [place] 8405808-04-2022 14:51-0400 Heart rate80 /minMD Jordi Chand Work Phone: 6(337)[address] [place], [place] 8405808-04-2022 14:51-0400 Respiratory rate16 /minMD Jordi Chand Work Phone: [phone])[address] [place], [place] 8405808-04-2022 14:51-0400 SaO2% (BldA) [Mass fraction]98 %MD Jordi Chand Work Phone: [phone])[address]08-04-2022 14:51-0400 Systolic blood itcqgyrx480 mm[Hg]MD Jordi Chand Work Phone: [phone])[address]08-04-2022 12:45-0400 Body eeernn350.1 cm Jordi Mannie Work Phone: [phone] [place], [place] 8405808-04-2022 12:45-0400 Body mass index (BMI) [Ratio]37.4 kg/m2MD Jordi Chand Work Phone: [phone] [place], [place] 8405808-04-2022 12:45-0400 Body neycdz422.05 kg Jordi Chand Work Phone: [facility]08-04-2022 12:24-0400 Body fyvzolkcbgl90.9 [degF]MD Jordi Chand Work Phone: [facility] Encounters Encounter DateEncounter TypeCare ProviderFacilityStart: 61-09-8377jimrphmwqu NANCY NKANSAH-AMANKRAFacility:[place]Start: 92-42-0887hpzefbiptxSpmcex J GaleaFacility:[place]Start: 01-04-2025 End: 65-88-8910hqqfixsnvlLKDLKRI NKANSAH-AMANKRAFacility:FTMCStart: 12-07-2024 End: 45-18-5656adcixutptvNXXCYHM NKANSAH-AMANKRAFacility:FTMCStart: 12-06-2024 End: 56-72-5496tikocwzkotXWYZUJP NKANSAH-AMANKRAFacility:FTMCStart: 12-03-2024 End: 43-29-8196jpopowryszUCMNXEA NKANSAH-AMANKRAFacility:FTMCStart: 12-03-2024 End: 37-60-7274Nbzhsci encounter procedureKWABENA NKANSAH-AMANKRA [facility] [place] Start: 11-14-2024 End: 49-81-9202dzopewsayzMunvwr A DiabKeenan Private Hospital Work Phone: Start: 11-14-2024 End: 57-02-3116Vkofliiu ReferredVee Pittman MD-LAB Path Spec [facility] Start: 07-12-2024 End: 85-96-8628rhrztasxzuGLKQID W HEDGESMercy Lodi HospitalStart: 07-12-2024 Encounter for gynecological examination (general) (routine) without abnormal findingsROSAURA Le HospitalStart: 07-12-2024 End: 50-37-9603Ioacnzz encounter procedureDouglas Hoy MD Work Phone: [facility] CenterStart: 07-12-2024 End: 92-40-2798Vqyndxecom hospital visit by physicianSue Erwin MD Work Phone: [facility] LABComment on above:Women's annual routine gynecological examinationStart: 02-02-2024 End: 49-84-3177xtclrcqrigPsmenbj P COOKFacility:[place]Start: 02-02-2024 End: 94-63-1309Meudyob encounter procedureGregory P MANNIE [facility] [place] Start: 02-10-2023 End: 55-78-6000ftleeophxcPewedf Olexa Other [employer] Other Start: 32-08-4112Cfgvqz follow up visit related to original pxThomas OlexaFPG [facility] OrthopedicsStart: 39-06-8946Ubyrjmmnh encounterThomas OlexaFPG [place] [facility]opedicsStart: 01-07-2023 End: 50-03-5209wpchohjdxoGkfeow Olexa Other [facility] Other Start: 31-35-5063Pgcpkc follow up visit related to original pxThomas OlexaFPG [place] OrthopedicsStart: 12-31-2022 End: 07-98-5454qfnolnifhuRywpyi Olexa Other [employer] Other Start: 39-63-2299Asoqexglb encounterThomas OlexaFPG [place] OrthopedicsStart: 12-25-2022 End: 54-58-8025hgbwtncirvRV Sue Erwin Work Phone: [facility] Work Phone: Start: 12-25-2022 End: 68-76-7791Eiicmgm encounter procedureMD Sue Grullony Work Phone: [facility] Work Phone: Start: 12-19-2022 End: 71-86-7582ltznwmlzeaNvmfxl Olexa Other [employer] Other Start: 04-34-7818Vrukvd outpatient visit 25 minutes Shubham Landry [facility]icsStart: 11-25-2022 End: 15-63-8634wxdqytddbgHepzdp Olexa Other [facility] Other Start: 04-16-3791Taabfu outpatient new 45 minutes Shubham RaviSARITHAG [place]opedicsStart: 08-12-2022 End: 00-23-7809yaljscpehrWJ JORDI CHANDFacility:T9Cegli: 07-22-2022 End: 51-98-5552Yropwzs encounter procedureJordi CHAND [facility] [place] Start: 07-18-2022 End: 55-81-8123onniyzlhbnBE JORDI CHANDFacility:F6Ismks: 05-15-2022 End: 96-69-0109gyxaxgvwfyDO HARVEY BURCHFacility:R0Nwick: 03-27-2022 End: 32-71-8650mjpjocjpfmFL SUE ERWIN .Facility:Y0Vvfzl: 12-21-2021 End: 37-81-5499Ijiqatacn to same day surgery centerMD Jordi Mannie Work Phone: [facility] CampusStart: 12-19-2021 End: 27-97-1045Rqedtde encounter procedure Jordi Mannie Work Phone: [facility] Start: 12-13-2021 End: 18-38-3123Athgjtg encounter procedure Jordi Mannie Work Phone: [facility] Start: 12-12-2021 End: 83-65-6963yvstyschjxPN SUE ERWIN .Facility:L0Hpaxp: 12-10-2021 End: 86-72-9659eoaxnuopnxNE JORDIGARRETT CHANDFacility:U9Qnrib: 11-29-2021 End: 44-50-2464Jwtikzdgf to same day surgery centerMD Jordi Chand Work Phone: [facility] CampusStart: 11-27-2021 End: 06-79-0029Icpvxof encounter procedureMD Jordi Chand Work Phone: [facility] Start: 11-21-2021 End: 29-96-9573Xyjwpdw encounter procedureJordi CHAND [facility] Start: 11-20-2021 End: 54-17-4585uhvwqrcyjoUL JORDI CHANDFacility:P3Pyvkx: 11-13-2021 End: 95-65-8405twattvwumpEP SUE ERWIN .Facility:R5Kobce: 10-03-2021 End: 86-83-3753haskgnrzlmLP SUE ERWIN .Facility:G7Rjzie: 03-05-2021 End: 58-04-1043Vytwwsp encounter procedureSue Erwin MD Work Phone: mthz LaboratoryStart: 03-05-2021 End: 96-53-1412Fuvpctilsy hospital visit by Adán Erwin MD Work Phone: mthz LaboratoryComment on above:Vaginal discharge; Women's annual routine gynecological examinationStart: 02-25-2019 End: 69-43-5764Nxlpkfviej hospital visit by Adán [facility] Comment on above:Women's annual routine gynecological examination Procedures DateProcedureProcedure DetailPerforming ClinicianStart: 68-06-7019Weiqtsxzxiv observation [Identifier] in Cervix by Cyto stainSue Erwin MD Work Phone: Start: 22-39-3726OumfzvnlhwQT Jordi Chand [employer] Phone: Start: 59-72-9652Wrafuukwvu radiography of abdomenMD Jordi Chand [employer] Phone: Start: 69-20-7496Pozqmqgbxj radiography of abdomenMD Jordi Chand [employer] Phone: Start: 19-55-8707Opytilkqtvmmtb shockwave lithotripsy of calculus of kidneyJordi CHAND Start: 08-76-9935Zwldflbcvrfobs shockwave lithotripsy of calculus of kidneyMD Jordi Chand [employer] Phone: Start: 85-61-2031Opfwonmhtg radiography of abdomenMD Jordi Chand [employer] Phone: Start: 04-42-6111Gefkqyujifa insertion of ureteric stentJordi CHAND [employer] Start: 43-17-3447Uznzboenbm, device (physical object) Jordi CHAND [employer] Start: 18-52-0812Isxqjpmykin observation [Identifier] in Cervix by Cyto stainSue Erwin MD Work Phone: [phone]-art: 70-24-1904PxvcumulghhVspxejt [employer] [employer] Diagnostic endoscopyJordi CHAND [employer] Dilation and curettage of uterusJordi vocaltap SARS Antigen (LFIA) Jordi Chand Work Phone: Plan of Treatment DateCare ActivityDetailAuthorStart: 64-46-6232Dqwnvzuiy for malignant neoplasm of cervixVcu Medical CenterStart: 51-95-3070Zbrdqzzu identified in Urine by CultureUrine [facility] Hospitaltart: 96-08-0458Myyqw [facility] Hospitaltart: 27-74-4526XSAZR-19 Vaccine ( season)COVID-19 Vaccine ( season)[facility] Start: 75-92-5374Blczsvenl vaccinationFlu vaccine (#1)[facility] Start: 93-84-4616Nawanxswr for malignant neoplasm of breastBreast cancer screen [facility]Start: 03-13-2022 End: 07-15-6313Wjkykew encounter /16/2022 Office Visit Obstetrics and Gynecology Rosaura Yang MD [address] [facility] [place] [id number] [facility] GYNECOLOGYStart: 94-72-3973Ctsvzogqf for malignant neoplasm of cervixCleveland ClinicStart: 12-21-2021 End: 43-00-8202HfirbatzbKeenan Private Hospital Work Phone: Start: 79-00-6752TqrfwpyhaeJU Cysto/Retro/Stent/Stone/Holmium Laser (Left)[facility] Start: 53-40-0120Ngeifjvobv radiography of abdomenXR [facility] Centertart: 12-21-2021 End: 30-77-9627Ogplyokzk to same day surgery centerDeparted Surgical Day Care [facility] Main CampusStart: 12-21-2021 Diagnostic radiography of abdomenXR [facility] Centertart: 12-19-2021 End: 95-58-1284Cxsyvvd encounter procedureDeDiley [facility]-Pre-Surgical TestingStart: 12-13-2021 End: 66-85-0512Horedsq encounter procedureDeDiley [facility] Center-Pre-Surgical TestingStart: 46-19-6856TvnqtqplvKeenan Private Hospital Work Phone: Start: 10-82-4376SsrggqacwKeenan Private Hospital Work Phone: Start: 31-63-0818Nsqxjraz cancer screenCervical cancer [facility] [place]Start: 72-19-1594YVJUO-19 Vaccine (3 - Pfizer booster)COVID-19 Vaccine (3 - Pfizer booster)[facility] ClinicStart: 02-07-2021 Pneumococcal 50+ years Vaccine (2 of 2 - PPSV23)Pneumococcal 50+ years Vaccine (2 of 2 - PPSV23)[facility]: 34-15-4748Bfnbnt cancer screen Breast cancer screenVulcan, [place]Start: 96-85-3690Crljuqejt vaccination Flu vaccine (#1)[facility], [place]Comment on above:Postponed from 12/27/2018 (Not Indicated)Start: 09-15-7977Lxwiwuxw screenDiabetes screenSt. Mary's [facility], OKComment on above:Postponed from 2008 (Not Indicated)Start: 03-25-2019 DTaP/Tdap/Td vaccine (1 - Tdap)DTaP/Tdap/Td vaccine (1 - Tdap)[facility], [place]Comment on above:Postponed from 07/09/1987 (Patient Refused)Start: 03-25-2019 HIV screenHIV [facility] [place]Comment on above:Postponed from 07/09/1983 (Patient Refused)Start: 34-94-1072Veuqc screenLipid [facility], [place]Comment on above:Postponed from 2008 (Not Indicated)Start: 06-92-8656Ugbfm cancer screen colonoscopyColon cancer screen colonoscopyVulcan, [place]Start: 71-92-1034Dpvvnbgf Vaccine (1 of 2)Shingles Vaccine (1 of 2)[facility]: 91-94-2563Fkjwaappl for malignant neoplasm of colonSelect [facility] [place]: 76-12-6122Efpqcbul screenDiabetes [facility]: 42-73-2110Lbmpi panelSelect Medical Specialty Hospital [facility] [place]: 44-16-2092Mlfkvigo screenDiabetes screen [facility]: 64-39-2193Vziziyrww for malignant neoplasm of cervixHPV (without or with Pap)[facility]: 93-07-1911KJbH/Tdap/Td vaccine (1 - Tdap)DTaP/Tdap/Td vaccine (1 - Tdap)[facility]: 37-54-7944Eeaqnorum B vaccine (1 of 3 - 19+ 3-dose series)Hepatitis B vaccine (1 of 3 - 19+ 3-dose series)Critical access hospital: 78-91-2423Nrppxucpl C screeningHepatitis C screenBon [facility] Hospitalart: 98-03-2938SWY screeningHIV screenCleveland ClinicStart: 79-00-8762Jqbdnyhkpk ScreenDepression ScreenBon [facility] Hospitalart: 20-89-5186Hjvesjqss C screeningHepatitis C screenSelect [facility] [employer] End: 77-83-1752Kdbcptj, GenitalSelect Medical Specialty [facility] [employer] Work Phone: Comment on above:1 Occurrences starting 03/05/2021 until 03/05/2021 End: 84-51-8672Dutvcnodeixct procedure, preparation of smear, genital sourcePAP SMEAR Lab Routine Women's Annual Routine Gynecological Examination 1 Occurrences starting 02/25/2019 until 02/25/2019[facility]TechWR[facility] MALIKComment on above:1 Occurrences starting 02/25/2019 until 02/25/2019 End: 05-84-2515Ovbglyzhwmivq procedure, preparation of smear, genital sourcePAP SMEAR Lab Routine Women's annual routine gynecological examination 1 Occurrences starting 03/05/2021 until 03/05/2021[facility] [employer] Work Phone: comment on above:1 Occurrences starting 03/05/2021 until 03/05/2021 End: 74-99-3369Utcsqupvtvnvb procedure, preparation of smear, genital sourcePAP SMEAR Lab Routine Women's annual routine gynecological examination 1 Occurrences starting 07/12/2024 until 07/12/2024on [facility] CenterF[facility] Work Phone: Comment on above:1 Occurrences starting 07/12/2024 until 07/12/2024Patient EducationCystoscopy (DC)[facility] Work Phone: [facility] referralK[facility] Health [facility]tr Work Phone: Immunizations Immunization DateImmunizationNotesCare XcbjkppiFuiuvtrq46-96-1072IXJH-ZfG-4 (COVID-19) mRNA-1273 vaccineJordi CHAND [facility]06-04-2022COVID-19 mRNA-1273 (Moderna)MD Jordi Chand Work Phone: [facility]10-14-2021influenza virus vaccine, unspecified formulationJordi CHAND [facility] Campusy10-14-2021Influenza, injectable, Madin [place] Canine Kidney, preservative free, quadrivalentSue Erwin MD Work Phone: [facility] [employer] Work Phone: [phone]-55 mRNA-1273 (Moderna)MD Jordi Chand Work Phone: [facility]04-17-2021COVID-19, Pfizer, PF, 30mcg/0.3mLDyoshi Erwin MD Work Phone: [facility] ClinicDpfzyl14-71-5326AIWR-YuI-7 (COVID-19) mRNA-1273 vaccineJordi CHAND [facility]03-20-2021COVID-19 mRNA-1273 (Moderna)MD Jordi Chand Work Phone: [facility]03-20-2021COVID-19, Pfizer, PF, 30mcg/0.3mGt Erwin MD Work Phone: [facility] Work Phone: [phone]wbjsk virus vaccine, unspecified formulationJordi CHAND [facility]01-06-2021Influenza, injectable, Madin [place] Canine Kidney, preservative free, douglasivalentSue Erwin MD Work Phone: [facility] Work Phone: [phone]erklvoqg conjugate vaccine, 13 valent Sue Erwin MD Work Phone: [facility] Work Phone: Payers DatePayer CategoryPayerPolicy [id number] [facility] [address] xxxxxxxx 2019-Present [phone] [address] [place] [address]dzyxrvla [id number] [id number] [id number] 2..840.1.122309.3.57[id number] 2.16.840.1.400099.3.57[id number] 2.16.840.1.262458.3.57[id number] 2.16.840.1.028815.3.579.[id number] 2.16.840.1.362371.3.57[id number] 2.16.840.1.733059.3.57[id number] 2.16.840.1.883980.3.579.[id number] 2.16.840.1.960346.3.579.[id number] 2.16.840.1.444815.3.579.[id number] 2.16.840.1.077929.3.57[id number] 2.16.840.1.232509.3.57[id number] 2.16.840.1.284169.3.57[id number] 2..840.1.873816.3.57[id number] 2.16.840.1.585364.3.57[id number] 1.2.840.448692.1.13.239.2.7.3.156986.315[employer] [id number] 2..840.1.894916.3.579.2.531 Social History DateTypeDetailFacilityStart: 02-25-2019 End: 52-43-4909Wxfvxjb smoking status NHISNever smokerJ.W. [facility]: 02-25-2019 End: 81-12-6624Hkxficu intakeYesMReg[facility]: 90-01-8139Hnn Assigned At BirthNot on [facility]: 07-30-2012 End: 68-67-7638Donrvdi use and exposureSmokeless tobacco non-userSelect [facility] inDinero Phone: start: 03-05-2021 End: 67-23-3240Boakupu intakeCurrent drinker of alcohol (finding)[facility] [employer] Work Phone: Tobacco smoking statusNeverExec[facility] Start: 66-15-2255Qfo [facility]igned At [facility] Hospitaltart: 67-53-8030Nncqrab of Social functionVcu Medical CenterStart: 06-07-2012 End: 49-39-9024OofXuyhza (finding)[facility] HospitalSexual Orientation [facility] Gallery [employer] Goals DatePatient GoalDesired Activity/State Functional Status VcraRhnbpogzoiNayeywIqrpluqu96-19-9346Dvkoovcqyi StatusN/AExec[facility]03-27-2023Functional StatusN/A[facility]07-27-2022Functional StatusN/A [facility] [employer] Clinical Notes 12-08-2019 to 03-09-2025 Note Date & KwjpTglxVykqjhbm71-93-5490 NotePatient Education Urology Kidney Stones Kidney stones are rock-like masses that form inside of the kidneys. Kidneys are organs that make pee (urine). A kidney stone may move into other parts of the urinary tract, including: ??? The tubes that connect the kidneys to the bladder (ureters). ??? The bladder. ??? The tube that carries urine out of the body (urethra). Kidney stones can cause very bad pain and can block the flow of pee. The stone usually leaves your body through your pee. A doctor may need to take out the stone. What are the causes? Kidney stones may be caused by: ??? Too much calcium in the body. This may be caused by too much parathyroid hormone in the blood. ??? Uric acid crystals in the bladder. The body makes uric acid when you eat certain foods. ??? Narrowing of one or both of the ureters. ??? A kidney blockage that you were born with. ??? Past surgery on the kidney or the ureters. What increases the risk? You are more likely to develop this condition if: ??? You have had a kidney stone in the past. ??? Other people in your family have had kidney stones. ??? You do not drink enough water. ??? You eat a diet that is high in protein, salt (sodium), or sugar. ??? You are very overweight (obese). What are the signs or symptoms? Symptoms of a kidney stone may include: ??? Pain in the side of the belly, right below the ribs. Pain usually spreads to the groin. ??? Needing to pee often or right away. ??? Pain when peeing. ??? Blood in your pee. ??? Feeling like you may vomit (nauseous). ??? Vomiting. ??? Fever and chills. How is this treated? Treatment depends on the size, location, and makeup of the kidney stones. The stones will often pass out of the body when you pee. You may need to: ??? Drink more fluid to help pass the stone. ? In some cases, you may be given fluids through an IV tube at the hospital. ??? Take medicine for pain. ??? Change your diet to help keep kidney stones from coming back. Sometimes, you may need: ??? A procedure to break up kidney stones using a beam of light (laser) or shock waves. ??? Surgery to remove the kidney stones. Follow these instructions at home: Medicines ??? Take drwh-opw-xqfrxcg and prescription medicines only as told by your doctor. ??? Ask your doctor if the medicine prescribed to you requires you to avoid driving or using machinery. Eating and drinking ??? Drink enough fluid to keep your pee pale yellow. ? You may be told to drink at least 8?10 glasses of water each day. This will help you pass the stone. ??? If told by your doctor, change your diet. You may be told to: ? Limit how much salt you eat. ? Eat more fruits and vegetables. ? Limit how much meat, poultry, fish, and eggs you eat. ??? Follow instructions from your doctor about what you may eat and drink. General instructions ??? Collect pee samples as told by your doctor. You may need to collect a pee sample: ? 24 hours after a stone comes out. ? 8?12 weeks after a stone comes out, and every 6?12 months after that. ??? Strain your pee every time you pee. Use the strainer that your doctor recommends. ??? Do not throw out the stone. Keep it so that it can be tested by your doctor. ??? Keep all follow-up visits. You may need X-rays and ultrasounds to make sure the stone has come out. How is this prevented? To prevent another kidney stone: ??? Drink enough fluid to keep your pee pale yellow. This is the best way to prevent kidney stones. ??? Eat healthy foods. ??? Avoid certain foods as told by your doctor. You may be told to eat less protein. ??? Stay at a healthy weight. Where to find more information ??? National Kidney Foundation (NKF): kidney.org ??? Urology Care Foundation (UCF): urologyhealth.org Contact a doctor if: ??? You have pain that gets worse or does not get better with medicine. Get help right away if: ??? You have a fever or chills. ??? You get very bad pain. ??? You get new pain in your belly. ??? You faint. ??? You cannot pee. This information is not intended to replace advice given to you by your health care provider. Make sure you discuss any questions you have with your health care provider. Document Revised: 12/06/2022 Document Reviewed: 12/06/2022 [employer] Patient Education ? 2023 MEDOP.[facility] 01-04-2025 NoteProgress Note-Physician Patient: KAROL PLASCENCIA Age: 54 years Sex: Female : 1970 Associated Diagnoses: None Author: Wild ARREGUIN, Corey Renteria Postoperative Information Postoperative disposition: Postoperative disposition: To PACU. Optimetrix number: Optimetrix number [id number]. Anesthetic utilized: General. Health Status Allergies: Allergic [...] Stable. Plan Transfer/Discharge: Transfer/Discharge Discharge when meets criteria.[facility]Comment on above:Result Comment: Electronically Signed By: Wild ARREGUIN, Corey Renteria\.br\Date and Time Signed: 01/04/25 16:48 [id number] Note Patient Education - Text [facility]09-09-2025 Note History and Physical Patient: KAROL PLASCENCIA Age: 54 years Sex: Female : 1970 Associated Diagnoses: None Author: HODAN ARREGUIN, NANCY Preoperative Information patient is a 54-year-old female [...] day(s), # 60 cap(s), Refills(s) 1, Pharmacy: [facility]/pharmacy #[id number], 164, cm, 02/02/24 8:05:00 EDT, Height/Length [...] All Problems Cervical adenopathy / SNOMED CT 211584 / Confirmed Sinus congestion / SNOMED CT 435650568 / Confirmed History of kidney stones / SNOMED CT 5616606478 / Confirmed Kidney stone / SNOMED CT 769851919 / Confirmed Morbid obesity with BMI of 40.0-44.9, adult / IMO 85848039 / Possible Problem added automatically by Discern Expert based on clinical documentation Right ear pain / SNOMED CT 05399821 / Confirmed Thyroid nodule / SNOMED CT 382320413 / Confirmed Ureteral stone / SNOMED CT 95496408 / Confirmed Histories Past Medical History: No active or resolved past medical history items have been selected or recorded. Family History: Hypertension Mother Primary malignant neoplasm of bone Father Thyroid goiter Mother Procedure history: Cystoscopy, right ureteroscopy, stone basket extraction, stent placement ([id number]) on 12/07/2024 at 54 Years. ESWL - Extracorporeal shockwave lithotripsy for renal calculus ([id number]) on 12/21/2021 at 51 Years. Cystoscopic insertion of ureteric stent ([id number]) on 11/29/2021 at 51 Years. Cystoscope/Lt. RG/Lt. double J stent ([id number]) on 11/13/2021 at 51 Years. Colonoscopy (504229516) on 08/26/2018 at 48 Years. Diagnostic endoscopy (565312777). D&C - Dilatation and curettage (8794787417). Biopsy of breast (090473603). Social History Social & Psychosocial Habits Alcohol [...] Cuff 106 mmHg 01/04/2025 (more content not included)...[facility] HospitalComment on above:Result Comment: Electronically Signed By: NANCY QUINONEZ MD\.br\Date and Time Signed: 01/04/25 10:59 [id number] NoteProgress Note-Physician Patient: KAROL PLASCENCIA Age: 54 years Sex: Female : 1970 Associated Diagnoses: None Author: Corey Rome MD Postoperative Information Postoperative disposition: Postoperative disposition: To PACU. Optimetrix number: Optimetrix number [id number]. Anesthetic utilized: General. Health Status Allergies: Allergic [...] Stable. Plan Transfer/Discharge: Transfer/Discharge Discharge when meets criteria.[facility] HospitalComment on above:Result Comment: Electronically Signed By: Corey Rome MD\.br\Date and Time Signed: 12/07/24 15:26 [id number] Note Patient Education - Text [facility]08-12-2025 Note Progress Note-Physician Patient: KAROL PLASCENCIA Age: [...] day(s), # 60 cap(s), Refills(s) 1, [id number], cm, 02/02/24 8:05:00 EDT, Height/Length Dosing, 106.5, kg, 02/02/24 8:05:00EDT, Weight Dosing Pyridium 100 mg Tab: 100 mg = 1 tab(s), Oral, TID, X 3 day(s), # 9 tab(s), Refills(s) 0, [id number], 166, cm, 12/07/24 9:41:00 EDT, Height/Length Dosing, 106.8, kg, 12/07/24 9:41:00EDT, Weight Dosing Roxicodone 5 mg Tab: 5 mg = 1 tab(s), Oral, q6hr, PRN for pain, X 2 day(s), # 4 tab(s), Refills(s) 0, [id number] 166, cm, 12/07/24 9:41:00 EDT, Height/Length [...] All Problems Cervical adenopathy / SNOMED CT 942872 / Confirmed History of kidney stones / SNOMED CT 6508792264 / Confirmed Kidney stone / SNOMED CT 484813429 / Confirmed Morbid obesity with BMI of 40.0-44.9, adult / IMO 04616582 / Possible Problem added automatically by Discern Expert based on clinical documentation Right ear pain / SNOMED CT 62452596 / Confirmed Sinus congestion / SNOMED CT 180629735 / Confirmed Thyroid nodule / SNOMED CT 568911688 / Confirmed Ureteral stone / SNOMED CT 52844122 / Confirmed, Active Problems (8) Cervical adenopathy History of kidney stones Kidney stone Morbid obesity with BMI of 40.0-44. (more content not included)...[facility] HospitalComment on above:Result Comment: Electronically Signed By: Wild ARREGUIN, Corey Renteria\.br\Date and Time Signed: 12/07/24 11:08 [id number] Hospital Discharge instructions Patient Education 12/03/2024 13:57:00 [...] including vitamins, herbs, eye drops, creams, and jzui-znc-geebpam medicines. Any problems you or family members [...] health care provider tells you to. Taking doyh-cdg-hototys medicines, vitamins, herbs, and supplements. General instructions [...] provider. Document Revised: 03/17/2023 Document Reviewed: 03/17/2023 [employer] Patient Education 2023 MEDOP. Follow Up Care 11/15/2024 10:21:38 With:HODAN ARREGUIN, NANCY, URL Address: When: Unknown Comments:sched cysto, R URS, laser litho, possible stent [facility] 08-08-2025 NotePatient Education Urology Ureteroscopy Ureteroscopy [...] including vitamins, herbs, eye drops, creams, and hgmr-tbv-uvxefmx medicines. ??? Any problems you or family [...] care provider tells you to. ??? Taking vkpl-noy-yhgdhxq medicines, vitamins, herbs, and supplements. General instructions [...] happens after the procedure? (more content not included)...[facility]10-07-2024 Hospital Discharge instructions Patient Education 02/02/2024 07:58:03 [...] include: ?8 oz (237 mL) of milk, czbfdcm-kxnhbhevbbnm-clbyz milk, and calcium- fortifiedfruit juice. Calcium-fortified means [...] ?Spinach (cooked), rhubarb, beets, sweet potatoes, and Polish chard. ?Peanuts. ?Potato chips, bermudian fries, and baked potatoes with skin on. ?Nuts and nut products. ?Chocolate. If you regularly take a diuretic medicine, make sure to eat at least 1 or 2 servings of fruits or vegetables that are high in potassium each day. These include: ?Avocado. ?Banana. ?Burke, prune, carrot, or tomato juice. ?Baked potato. [...] magnesium, fish oil, or vitamin B6. Take rbjx-aza-nzsqeri and prescription medicines only as told by [...] Casseroles. Pizza. Lasagna. Frozen meals. Potato chips. Mosotho fries. The items listed above may not [...] Document Reviewed: 07/25/2022 Elsevier Patient Education 2023 MEDOP. Follow Up Care 01/27/2023 08:34:01 With:MANNIE ARREGUIN, Jordi Mckeon, URL Address: [address] [place] [address]- When: Unknown [facility] [place] [id number] NotePatient Education Nephrology Dietary Guidelines to Help [...] ? 8 oz (237 mL) of milk, nlhylcs-mjzrzdzdtqdi-jqefs milk, and calcium- fortifiedfruit juice. Calcium-fortified means [...] Spinach (cooked), rhubarb, beets, sweet potatoes, and Polish chard. ? Peanuts. ? Potato chips, bermudian fries, and baked potatoes with skin on. ? Nuts and nut products. ? Chocolate. ? If you regularly take a diuretic medicine, make sure to eat at least 1 or 2 servings of fruits orvegetables that are high in potassium each day. These include: ? Avocado. ? Banana. ? Burke, prune, carrot, or tomato juice. ? Baked [...] fish oil, or vitamin B6. ? Take pipd-iaj-ukykpco and prescription medicines only as told by your health care provider. Theseinclude suppleme (more content not included)...[facility]10-16-2023 Evaluation note* Encounter Date Diagnosis Assessment Notes [...] Jan,Other specified postprocedural states (ICD-10 - Z98.890) [facility] Other 09-12-2023 Evaluation note* Encounter Date Diagnosis [...] Dec,Other specified postprocedural states (ICD-10 - Z98.890) [facility] Other 09-05-2023 Evaluation note* Encounter Date Diagnosis Assessment Notes Treatment Notes Treatment Clinical Notes Dec, Other specified postprocedural s tates (ICD-10 - Z98.890) [facility] Other 08-24-2023 Evaluation note* Encounter Date Diagnosis [...] right knee, subsequent encounter (ICD-10 - S83.241D) [facility] Other 07-31-2023 Evaluation note* Encounter Date Diagnosis [...] Oct,ain in left knee (ICD-10 - M25.562) [facility] Other 03-27-2023 Hospital Discharge instructions Patient Education 07/22/2022 10:14:42 Kidney Stones, Wscc-xy-Liqa Kidney Stones Kidney stones are rock-like masses [...] Follow these instructions at home: Medicines Take pkao-wht-fnesfks and prescription medicines only as told by [...] 08/31/2019 Document Reviewed: 08/31/2019 Elsevier Patient Education 2020 MEDOP. Follow Up Care 12/26/2021 13:33:59 With:MANNIE ARREGUIN, Jordi Mckeon, URL [facility] [address] [place], [place] [id number]- When:01/22/2023 Comments:ANNAMARIE [facility] [place] 07-27-2022 Hospital Discharge instructions Patient Education 11/21/2021 12:49:44 Kidney Stones, Oelg-hy-Koun Kidney Stones Kidney stones are rock-like masses [...] Follow these instructions at home: Medicines Take mplh-exn-sngsznv and prescription medicines only as told by [...] 09/30/2008 Document Revised: 08/31/2019 Document Reviewed: 08/31/2019 [employer] Patient Education 2019 MEDOP. Follow Up Care 11/14/2021 08:29:10 With:MANNIE ARREGUIN, Jordi Mckeon, URL Address: [address] [place] [address] [place], [place] [id number]- When: Unknown [facility] 07-19-2022 NoteOPERATIVE NOTE OPERATION DATE: 11/13/2021 [...] placed per urethra. A well lubricated, 22 Mosotho cystourethroscope was passed into the bladder. Moderately tight at the bladder neck. Once into the bladder, teran endoscopy reveals no tumors or stones or diverticula. She does have a moderate cystocele present. Left retrograde pyelogram was then performed utilizing a 6 Mosotho open ended ureteral catheter. The distal ureter [...] and then over the wire a 4.8 Mosotho, 22-30 cm Microvasive double J stent was [...] procedure well. She was transferred to the [facility] and then back to PACU in satisfactory [...] the plan. CC: Sue Erwin M.D. : [facility] Signed and Approved by: DR JORDI CHAND 11/29/2021 08:56:00[facility]06-08-2022 NotePROCEDURE: XR KNEE RT 4V or > COMPARISON: None. HISTORY: Pain in right knee FINDINGS: BONES:No acute fracture or dislocation. Mild osteoarthritis with marginal osteophyte formation SOFT TISSUES:Negative. No visible soft tissue swelling. EFFUSION:None visible. OTHER: Negative. IMPRESSION: Mild osteoarthritis Electronically authenticated by: KODY GARRISON Date: 2021-10-03 07:59[facility]08-12-2020 Evaluation + Plan note Future Appointments Appointment Date:12/06/2024 03:00:00 PM Scheduled Provider: Location:.[facility] Appointment Type:CV EKG (FT) Appointment Date:12/07/2024 11:15:00 AM Scheduled Provider: Location:[facility] Appointment Type:Surgery FT [facility] Evaluation + Plan note No data available for this section [facility] Evaluation + Plan note Future Appointments Appointment Date:01/27/2023 08:00:00 AM Scheduled Provider:Jordi CHAND MD [facility] Appointment Type:URO Office Visit [facility] Evaluation note* Diagnosis Vaginal discharge Leukorrhea, not specified as infective Women's annual routine gynecological examination documented in this encounter [employer] Work Phone: evaluation noteNo assessment information available [facility] Work Phone: Evaluation noteNo InformationNort Decision Rocket Other Evaluation note* Diagnosis Women's annual routine gynecological examination documented in this encounter Robby Enriquez [facility] general Narrative - Reported* Type Description Date Medical History GERD Medical HistoryHypothyroidism [facility] Other History general Narrative - Reported* Type Description Date Medical History GERD Medical HistoryHypothyroidismSurgical History1. LEFT knee arthroscopy with partial medial meniscectomy 2. Chondral debridement medial femoral condyle, medial tibial plateau, medial patellar facet [facility] Other Progress note No data available for this section [facility] Reason for referral (narrative)No reason for referral information availableKeenan Private Hospital Work Phone: Assessments Diagnosis Women's annual routine gynecological examination Advance Directives No Advanced Directives Records FoundDocuments on File TypeDate RecordedPatient RepresentativeExplanationAdvance Directives and Living WillPower of AttorneyTypeDate RecordedPatient RepresentativeExplanationACP- Advance DirectiveACP-Power of Gaggerman Advance Directive Response Recorded Date/ Time Advance [...] DateEnd Date Sue Erwin MD [address] [place] [address] PCP - GeneralFamily Medicine01/16/16 Team Status: Inactive Member Role Status Dates Sue Erwin MD Primary Care Provider Active Jordi P Cook , MDAttending ProviderActive Team Status: Inactive Member Role Status Dates Jordi Chand MD Attending Provider Active Virgen Loomis Care ProviderActive Team Status: Active Member Role Status Dates Sue Erwin MD Primary Care Provider Active Team Status: Inactive Member Role Status Dates Sue Erwin MD Primary Care Provider Active Iwona Nettles ProviderActiveTeam MemberRelationshipSpecialtyStart DateEnd Date Sue Erwin MD [address] [place] [address] PCP - GeneralFamily Medicine01/16/16 Team Status: Inactive Member Role Status Dates Vee Pittman MD Attending Provider Active Sta rt: November 14, 2024 End: November 14, 2024 INFORMATION SOURCE (unrecogn ized section and content) DATE CREATED AUTHOR 08/18/2022 [facility] DATE CREATED AUTHOR AUTHOR'S ORGANIZ ATION 07/26/2024 [facility] DATE CREATED AUTHOR AUTHOR'S ORGANIZ ATION 11/17/2024 [facility] DATE CREATED AUTHOR AUTHOR'S ORGANIZ ATION 12/14/2024 [facility] DATE CREATED AUTHOR AUTHOR'S ORGANIZ ATION 03/09/2025 [facility] REASON FOR VISIT (unrecogniz ed section and [...] BE BASED ON THE PRIMARY CLINICAL RECORDS. [facility] [employer] [facility]. provides no warranty or guarantee of the accuracy or completeness of information in this document.
--- OUTSIDE RECORDS SUMMARY | 2025-03-23 07:23 | XMS_ITS | Clinical Summary ---
Author Organization [facility] Address [address], [address] [place] [address] Care Team Providers Care Pickers Material Handlers Name Role Phone Neymar Win MD Primary Care Provider [phone] Allergies No known active allergies Medications MedicationSigDispense QuantityRefillsLast FilledStart DateEnd DateStatus dicyclomine (BENTYL) 20 MG tablet TAKE 1 TABLET BY MOUTH 3 TIMES A DAY BEFORE SXVTK29312/27/2018Active levothyroxine (SYNTHROID) 50 MCG tablet TAKE 1 TABLET BY MOUTH EVERY [id number] [facility] ESOMEPRAZOLE MAGNESIUM 20 MG delayed release [...] DILUTE for use, (age 12 y+)08/12/2020,07/15/2020Influenza Virus Mgvrzse8302/08/2021,05/03/2020 Influenza, FLUCELVAX, (age 6 mo+), MDCK, Quadv PF, 0.5mL02/08/2021,05/03/2020 Pneumococcal, PCV-13, PREVNAR 13, (age 6w+), IM, 0.5mL02/08/2020 Family History Medical HistoryRelationNameCommentsCancerFatherClotting DisorderMotherHigh CholesterolMotherThyroid DiseaseMotherRelationNameStatusCommentsFatherDeceased Maternal GrandfatherDeceasedMaternal GrandmotherDeceasedMotherAlivePaternal GrandfatherDeceasedPaternal GrandmotherDeceased Social History Tobacco UseTypesPacks/DayYears UsedDateSmoking Tobacco: NeverSmokeless Tobacco: Never Tobacco Cessation:Counseling Given: Not Answered Alcohol UseStandard Drinks/WeekCommentsYes0 (1 standard drink = 0.6 oz pure alcohol)CommentsNoSex and Gender InformationValueDate RecordedSex Assigned at BirthNot on fileLegal NkaZusrvt39/10/2013 6:45 PM ESTGender Identity Not on fileSexual OrientationNot on file Last Filed Vital Signs Vital SignReadingTime TakenCommentsBlood Koyrpehn514/90007/12/2024 11:12 AM EDT Pulse--Temperature--Respiratory Rate--Oxygen Saturation--Inhaled Oxygen Concentration--Aqfqby067.4 kg (239 lb)07/12/2024 11:12 AM BYHAdaklh415.1 cm (5' 5 )07/12/2024 11:12 AM EDTBody Mass Index39.77007/12/2024 11:12 AM EDT Plan of Treatment Health MaintenanceDue DateLast DoneCommentsDepression Natgzl7807/08/1980HIV screen 07/09/1983Hepatitis C lsxyre3407/08/1986DTaP/Tdap/Td vaccine (1 - Tdap)07/09/1987 Hepatitis B vaccine (1 of 3 - 19+ 3-dose series)07/09/1987HPV (without or with Pap)1998Diabetes klvvam2607/09/20033244Czrrkc60/13/1559Rbrqypjgtzg71/13/2014 Colorectal Cancer Bhuehu5407/08/2013FIT/FOBT: Average risk2013Fecal-DNA (Cologuard): Average risk2013Sigmoidoscopy/CT ubxeemmjwoyh86/13/2014 Shingles vaccine (1 of 2)2018Pneumococcal 50+ years Vaccine (2 of 2 - PCV20 or PCV21)Breast cancer ggdvma91, 03/18/2019, 02/27/2018Flu vaccine (#1)/, 02/08/2021, 05/03/2020, Additional history existsCOVID-19 Vaccine ( season) 507/, 09/29/2021, 08/12/2020, Additional history existsCervical cancer lvjhhm9507/13/2027Pap smear803/, 05/12/2023, 03/14/2022, Additional history existsPneumococcal 0-49 years XtaogmoQpbnytqtuuby49/13/2020 Hepatitis A vaccineAged OutNo longer eligible based [...] CYTOLOGYRoutine 07/12/2024 12:00 AM EDT MARGE SCREENING SYTSLTEMVAhmiisc08/23/2020from Last 3 Months or Most Recently Relevant to Health Maintenance Results * FISH DRESSING MACHINE FEEDER Cytology (07/12/2024 12:00 AM EDT)ComponentValueRef RangeTest Method Analysis TimePerformed AtPathologist SignatureCytology ReportPath Number: [id number] DIAGNOSIS Imaged ThinPrep Pap - Cervical (1 monolayer slide): Specimen Adequacy: ? Satisfactory for evaluation. ? - Endocervical/transformation zone component present. Descriptive Diagnosis: ? Negative for intraepithelial lesion or malignancy. ?? 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 The Pap smear is a screening test primarily for squamous epithelial lesions, which is subject to both false negative and false positive results. Your patient should be reminded to consult you immediately if she experiences any suspicious signs or symptoms, regardless of her Pap smear result. GYNECOLOGIC CYTOLOGY REPORT Patient Name: TAMRA MARCOS [facility] Rec: [id number] [facility] ??[facility] ANATOMIC PATHOLOGY [address] [place] [address]. ??[place], [place] [address] [facility] LABSSpecimen (Source)Anatomical Location / LateralityCollection Method / VolumeCollection TimeReceived Time CERVICAL NKEPOAQS55/ 7:46 AM EDT Narrative Authorizing ProviderResult TypeResult StatusWekatia Yang MDPATHOLOGY/CYTOLOGY ORDERABLESFinal ResultPerforming OrganizationAddressCity/State/ZIP CodePhone Number [facility] [address] [place] [address], [facility] [phone] [facility] * MARGE Screening Bilateral (03/20/2020)Anatomical RegionLateralityModalityBreast BilateralMammography Narrative Authorizing ProviderResult TypeResult StatusHistorical Provider MDIMG MAMMOGRAPHY ORDERABLESFinal Result from Last 3 Months or Most Recently Relevant to Health Maintenance Insurance * Guarantor: Tamra Marcos TypeRelation to PatientDate of BirthPhone Billing AddressPersonal/EcsciqCzts14/13/1971 [address] [place] [place] [phone] Care Teams Team MemberRelationshipSpecialtyStart Date Neymar Win MD [address] [phone] PCP - GeneralFamily Medicine01/16/16
--- OUTSIDE RECORDS SUMMARY | 2025-03-23 07:23 | XMS_ITS | Clinical Summary ---
Author Organization [facility] Address [address] [place] [address] Care Team Providers Care Engagement Quality Consultant Name Role Phone Unavailable Primary Care Provider Unavailabl e Social History Tobacco UseTypesPacks/DayYears UsedDateSmoking Tobacco: Never Assessed CommentsUnknownSex and Gender InformationValueDate RecordedSex Assigned at Not on fileLegal SfkCcjxdj54/15/2023 7:26 PM EDTGender IdentityNot on fileSexual OrientationNot on file Last Filed Vital Signs Vital SignReadingTime TakenCommentsBlood Ipbqxvep685/78005/29/2022 12:00 PM EST Pulse--Temperature--Respiratory Rate--Oxygen Saturation--Inhaled Oxygen Concentration--Dsoaip801 kg (233 lb)05/29/2022 12:00 PM OQHJjwerg004.6 cm (5' 6 )05/29/2022 12:00 PM ESTBody Mass Index37.61005/29/2022 12:00 PM EST Plan of Treatment Not on file Insurance
--- OUTSIDE RECORDS SUMMARY | 2025-03-23 07:23 | XMS_ITS | Patient Health Record ---
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 Name Role Phone Orion Win Primary Care Provider [phone] Allergies No Known Allergies Results Component Value Reference Range Notes IRON Reviewed date:03/12/2025 01:56:49 PM Interpretation: Performing Lab: Notes/Report: [facility] , Iron 57.0 50.0-170.0 ug/dL Performing Lab:see noteML - [facility] LBPROF 14(COMP METB) Reviewed date:03/12/2025 01:56:49 PM Interpretation: Performing Lab: Notes/Report: [facility] ,Ypbohq196956-775 mmol/LPotassium3.73.5-5.1 mmol/UUtfctirm56395-727 mmol/LCarbon Tkijikv16.221.0-32.0 mmol/LAnion Gap10.2Hzempxm1978-684 mg/dLBlood Urea Nitrogen 16.07.0-18.0 mg/dLCreatinine0.730.55-1.02 mg/dLEstimated GFR ( Jody>60 >=60 mL/min/1.73m 2Estimated GFR (Non- Gosia>60>=60 mL/min/1.73m 2BUN Creatinine Ratio21.3Kqdswnu0.18.5-10.1 mg/dLBilirubin Total0.30.2-1.0 mg/dL Aspartate Amino Lcufydrvdnm9081-88 U/LAlanine Ateagyjtqgriieuc0083-18 U/L Alkaline Hfhnvjmkmbu89478-232 U/LTotal Protein7.36.4-8.2 g/dLAlbumin Level3.5 3.4-5.0 g/dLGlobulin3.8Albumin Globulin Ratio0.9Performing Lab:see noteML - [facility] LBT4 Reviewed date:03/12/2025 01:56:49 PM Interpretation: Performing Lab: Notes/Report: [facility] ,T4 Thyroxine8.304.80-13.90 ug/dLPerforming Lab:see noteML - [facility] LBTSH Reviewed date:03/12/2025 01:56:49 PM Interpretation: Performing Lab: Notes/Report: [facility] ,Thyroid Stimulating Hormone1.6390.358-3.740 uIU/mLPerforming Lab:see noteML - [facility] LBLIPID PROFILE Reviewed date:03/12/2025 01:56:49 PM Interpretation: Performing Lab: Notes/Report: [facility] ,Qxyaltdmbcfhf73<=150 mg/sPXpymqsdtljl788<=200 mg/dLHDL Tuoeevedpyk5008-04 mg/dL <40 mg/dl - HIGH CARDIOVASCULAR RISK > or =60 mg/dl - LOW CARDIOVASCULAR RISK LDL Cholesterol Wzcvfsthzh144.0 >190 mg/dl VERY HIGH 100-129 mg/dl NEAR OR ABOVE OPTIMAL 160-189 mg/dl HIGH <100 mg/dl OPTIMAL 130-159 mg/dl BORDERLINE HIGH VLDL FRWVLCQGDOH04.2Chol HDL Ratio4.2 7.1 - 11.0 MODERATE RISK 4.4 - 7.1 AVERAGE RISK >11.0 HIGH RISK 3.3 - 4.4 LOW RISK Performing Lab:see noteML - [facility] LBGLYCOHEMOGLOBIN A1C Reviewed date:03/12/2025 01:56:49 PM Interpretation: Performing Lab: Notes/Report: [facility] ,Glycohemoglobin A1C5.54.5-6.2 % ACTION SUGGESTED > 7.0 ADA RECOMMENDED LIMIT 4.0 - 6.0 ADA THERAPEUTIC TARGET < 7.0 Estimated Average Eaqvwai726Lyunlatjbe Lab:see noteML - [facility] LB FREE T3 Reviewed date:03/12/2025 01:56:49 PM Interpretation: Performing Lab: Notes/Report: [facility] ,Free T31.982.18-3.98 pg/mLPerforming Lab:see noteML - [facility] LB CBC AUTO DIFF Reviewed date:03/12/2025 01:56:49 PM Interpretation: Performing Lab: Notes/Report: [facility] ,White Blood Count5.94.0-11.0 10 3/uLRed Blood Count4.324.20-5.40 10 6/uL Isrldsybso25.312.0-16.0 g/jMHzxcqzqnyp19.936.0-48.0 %Mean Corpuscular Jtzcur62.7 81.0-99.0 fLMean Corpuscular Exdbwvvctc67.526.7-34.0 pgMean Corpuscular HGB Conc 32.529.9-35.2 g/dLRed Cell Distribution Width14.211.0-15.0 %Platelet Ebxoj979 150-450 10 3/uLMean Platelet Volume9.19.5-13.5 fLNeutrophils Percent Auto66.1 43.0-75.0 %Lymphocytes Percent Auto24.120.5-60.0 %Monocytes Percent Auto6.61.7- 12.0 %Eosinophils Percent Auto1.90.9-7.0 %Basophils Percent Auto0.80.2-2.0 % Immature Granulocytes Pct Auto0.50.0-0.5 %Neutrophils Absolute Auto3.91.4-6.5 10 3/uLLymphocytes Absolute Auto1.41.2-3.8 10 3/uLMonocytes Absolute Auto0.40.3-0.8 10 3/uLEosinophils Absolute Auto0.10.0-0.7 10 3/uLBasophils Absolute Auto0.10.0- 0.1 10 3/uLImmature Granulocytes Abs Auto0.030.00-0.03 10 3/uLPerforming Lab:see noteML - [facility] LBUS renal BI Reviewed date:02/21/2025 07:15:11 PM Interpretation: Performing Lab: Notes/Report: Source Facility: [facility]-[address] [place] [address] [place] [address] Ultrasound Report Signed Patient: KAROL MARCOS MR#: [id number] : 1970 Acct:[id number] Age/Sex: 54 / F ADM Date: 02/21/25 Loc: US Attending Dr: Waldemar Pettit M.D. Ordering Physician: Waldemar Pettit M.D. Date of Service: 02/21/25 Procedure(s): US renal BI Accession Number(s): [id number] cc: Neymar Win M.D.; Waldemar Pettit M.D. [place] [address] Patient Name: KAROL MARCOS MRN: [facility]:[id number] date: 1970 Sex: F Assigned Patient Location: US Current Patient Location: US Accession/Order Number: [id number] Exam Date: 02/21/2025 07:15 Report Date: 02/21/2025 [...] Cisneros M.D. 02/21/2025 8:25 AM Dictation Location: [place] [address] Electronically authenticated by: [id number] Y Date: 02/21/2025 08:25 Dictated By: Danni Cisneros M.D. Signed By: 02/21/25827 DD/ 4 TD/TT: Line Department Supervisor:CATERINA abdomen 1V Reviewed date:02/21/2025 07:15:11 PM Interpretation: Performing Lab: Notes/Report: Source Facility: [address] [address] XRay Report Signed Patient: KAROL MARCOS MR#: [id number] : 1970 Acct:[id number] Age/Sex: 54 / F ADM Date: 02/21/25 Loc: US Attending Dr: Waldemar Pettit M.D. Ordering Physician: Waldemar Pettit M.D. Date of Service: 02/21/25 Procedure(s): XR abdomen 1V Accession Number(s): [id number] cc: Neymar Win M.D.; Waldemar Pettit M.D. [place] [address] Patient Name: KAROL MARCOS MRN: [facility]:[id number] date: 1970 Sex: F Assigned Patient Location: Current Patient Location: US Accession/Order Number: [id number] Exam Date: 02/21/2025 07:38 Report Date: 02/21/2025 [...] Cisneros M.D. 02/21/2025 8:27 AM Dictation Location: [place] [address] Electronically authenticated by: [id number] Y Date: 02/21/2025 08:27 Dictated By: Danni Cisneros M.D. Signed By: 02/21/25829 DD/ 6 TD/TT: Line Department Supervisor:SAIRA MARIANO WO MICRO ([id number]) - IN OFFICE Reviewed date:11/14/2024 02:43:57 PM Interpretation: Performing Lab: Notes/Report: COLORorangeCLARITYclearGLUCOSEnegBILIRUBINnegKETONEnegSPECIFIC GRAVITY1.005BLOOD fydvoUO8OONISBNqtueoMYNUWGPEDATZxcoURQZTSGtaePUWTXBESC ESTERASElargeINSULIN Reviewed date:03/12/2025 01:56:49 PM Interpretation: Performing Lab: Notes/Report: [facility] ,Dfywmjn01.82.6-24.9 uIU/mL Performed at: - [facility] Applications Scientist: Jeramy Rene PhD, Phone: [phone] [address] [place], [place] [phone] Performing Lab:see note - [facility] LBCT abdomen pelvis wo con Reviewed date:11/14/2024 02:43:57 PM Interpretation: Performing Lab: Notes/Report: Source Facility: [place] [address] CT Scan Report Signed Patient: KAROL MARCOS MR#: [id number] : 1970 Acct:[id number] Age/Sex: 54 / F ADM Date: 11/14/24 Loc: ER Attending Dr: Ordering Physician: Vee Ohara Date of Service: 11/14/24 Procedure(s): CT abdomen pelvis wo con Accession Number(s): [id number] cc: Neymar Win M.D. [place] [address] Patient Name: KAROL MARCOS MRN: [id number] date: 1970 Sex: F Assigned Patient Location: ER Current Patient Location: ED.MAIN Accession/Order Number: [id number] Exam Date: 11/14/2024 08:09 Report Date: 11/14/2024 [...] Dawkins M.D. 11/14/2024 8:12 AM Dictation Location: [place] [address] Electronically authenticated by: [id number] Y Date: 11/14/2024 08:12 Dictated By: Kingsley Dawkins M.D. Signed By: 11/14/24 0815 DD/ 0812 TD/TT: Line Department Supervisor:[place]rine Culture [place] [facility] Reviewed date:11/16/2024 04:22:14 PM Interpretation: Performing Lab: Notes/Report: [facility] ,[facility] For Report Organism: 1.1 [place] Count Testing performed at [facility] Isolated Urine Culture - [facility] Antibiotic Interpretation BETH Status Urine Culture - [facility] O:ESCCOL Urine Culture - [id number] [place] [address] Organism: 1.1 [place] Count Testing performed at [facility] Isolated Urine Culture - [place] Antibiotic Interpretation BETH Status Urine Culture - [place] O:ESCCOL Urine Culture - [facility] For Report Organism: 1.1 [place] Count Testing performed at [facility] Isolated Urine Culture - FR Antibiotic Interpretation BETH Status Urine Culture - [place] O:ESCCOL Urine Culture - [facility]See Below For Report Organism: 1.1 [place] Count Testing performed at [facility] Isolated Urine Culture - FR Antibiotic Interpretation BETH Status Urine Culture - [place] O:ESCCOL Urine Culture - [facility]>100,000 Organism: 1.1 [place] Count Testing performed at [facility] Isolated Urine Culture - [place] Antibiotic Interpretation BETH Status Urine Culture - FR O:ESCCOL Urine Culture - [facility]See Below For Report Organism: 1.1 [place] Count Testing performed at [facility] Isolated Urine Culture - FR Antibiotic Interpretation BETH Status Urine Culture - FR O:ESCCOL Urine Culture - FRMCAmikacin S F Organism: 1.1 [place] Count Testing performed at [facility] Isolated Urine Culture - FR Antibiotic Interpretation BETH Status Urine Culture - FR O:ESCCOL Urine Culture - FRMCAmoxicillin/Clavulanate S F Organism: 1.1 [place] Count Testing performed at [facility] Isolated Urine Culture - FR Antibiotic Interpretation BETH Status Urine Culture - FR O:ESCCOL Urine Culture - FRMCAmpicillin S F Organism: 1.1 [place] Count Testing performed at [facility] Isolated Urine Culture - FR Antibiotic Interpretation BETH Status Urine Culture - FR O:ESCCOL Urine Culture - FRMCAztreonam S F Organism: 1.1 [place] Count Testing performed at [facility] Isolated Urine Culture - FR Antibiotic Interpretation BETH Status Urine Culture - FR O:ESCCOL Urine Culture - FRMCCeftazidime S F Organism: 1.1 [place] Count Testing performed at [facility] Isolated Urine Culture - FR Antibiotic Interpretation BETH Status Urine Culture - FR O:ESCCOL Urine Culture - FRMCCeftazidime/Avibactam S F Organism: 1.1 [place] Count Testing performed at [facility] Isolated Urine Culture - FR Antibiotic Interpretation BETH Status Urine Culture - FR O:ESCCOL Urine Culture - FRMCCeftolozane/Tazobactam S F Organism: 1.1 [place] Count Testing performed at [facility] Isolated Urine Culture - FR Antibiotic Interpretation BETH Status Urine Culture - FR O:ESCCOL Urine Culture - FRMCCiprofloxacin S F Organism: 1.1 [place] Count Testing performed at [facility] Isolated Urine Culture - FR Antibiotic Interpretation BETH Status Urine Culture - FR O:ESCCOL Urine Culture - FRMCErtapenem S F Organism: 1.1 [place] Count Testing performed at [facility] Isolated Urine Culture - FR Antibiotic Interpretation BETH Status Urine Culture - FR O:ESCCOL Urine Culture - FRMCGentamicin S F Organism: 1.1 [place] Count Testing performed at [facility] Isolated Urine Culture - FR Antibiotic Interpretation BETH Status Urine Culture - FR O:ESCCOL Urine Culture - FRMCLevofloxacin S F Organism: 1.1 [place] Count Testing performed at [facility] Isolated Urine Culture - FR Antibiotic Interpretation BETH Status Urine Culture - FR O:ESCCOL Urine Culture - FRMCMeropenem S F Organism: 1.1 [place] Count Testing performed at [facility] Isolated Urine Culture - FR Antibiotic Interpretation BETH Status Urine Culture - FR O:ESCCOL Urine Culture - FRMCMeropenem/Vaborbactam S F Organism: 1.1 [place] Count Testing performed at [facility] Isolated [place] Culture [place] [facility] Antibiotic Interpretation BETH Status Urine Culture - FR O:ESCCOL Urine Culture - FRMCNitrofurantoin S F Organism: 1.1 [place] Count Testing performed at [facility] Isolated Urine Culture - FR Antibiotic Interpretation BETH Status Urine Culture - FR O:ESCCOL Urine Culture - FRMCTetracycline S F Organism: 1.1 [place] Count Testing performed at [facility] Isolated Urine Culture - FR Antibiotic Interpretation BETH Status Urine Culture - FR O:ESCCOL Urine Culture - FRMCTigecycline S F Organism: 1.1 [place] Count Testing performed at [facility] Isolated Urine Culture - FR Antibiotic Interpretation BETH Status Urine Culture - FR O:ESCCOL Urine Culture - FRMCTobramycin S F Organism: 1.1 [place] Count Testing performed at [facility] Isolated Urine Culture - FR Antibiotic Interpretation BETH Status Urine Culture - FR O:ESCCOL Urine Culture - FRMCAmpicillin/Sulbactam S F Organism: 1.1 [place] Count Testing performed at [facility] Isolated Urine Culture - [facility] Antibiotic Interpretation BETH Status Urine Culture - [facility] O:ESCCOL Urine Culture - FRMCCefazolin S F Organism: 1.1 [place] Count Testing performed at [facility] Isolated Urine Culture - [facility] Antibiotic Interpretation BETH Status Urine Culture - [facility] O:ESCCOL Urine Culture - FRMCCefepime S F Organism: 1.1 [place] Count Testing performed at [facility] Isolated Urine Culture - [facility] Antibiotic Interpretation BETH Status Urine Culture - [facility] O:ESCCOL Urine Culture - FRMCCeftriaxone S F Organism: 1.1 [place] Count Testing performed at [facility] Isolated Urine Culture - [facility] Antibiotic Interpretation BETH Status Urine Culture - [facility] O:ESCCOL Urine Culture - FRMCCefuroxime S F Organism: 1.1 [place] Count Testing performed at [facility] Isolated Urine Culture - [facility] Antibiotic Interpretation BETH Status Urine Culture - [facility] O:ESCCOL Urine Culture - FRMCPiperacillin/Tazobactam S F Organism: 1.1 [place] Count Testing performed at [facility] Isolated Urine Culture - FR Antibiotic Interpretation BEHT Status Urine Culture - [facility] O:ESCCOL Urine Culture - FRMCTrimethoprim/Sulfa S F Organism: 1.1 [place] Count Testing performed at [facility] Isolated Urine Culture - [facility] Antibiotic Interpretation BETH Status Urine Culture - [facility] O:ESCCOL Performing Lab:see note SEE REPORT - Research Epidemiologist Id information not found for OBX-specific probation and patrol agent legend ML - [facility] LB URINE MICROSCOPIC ONLY Reviewed date:11/14/2024 02:43:57 PM Interpretation: Performing Lab: Notes/Report: [facility] ,WBC Hmcmo19-15TIAW SEEN #/HPFRBC Gpubb00-564-7 #/HPFBacteria UrineMODERATENONE SEEN #/HPFMucus UrineTRACENONE SEENSquamous Epithelial Cell UrineFEWNONE/RARE #/LPFTransitional Epi Cells UrineRARENONE SEEN #/LPFCrystals Seen?None SeenNone Seen #/HPFCast Seen?NONE SEENNONE SEEN #/LPFUrine Culture IndicatedYE-[facility] Performing Lab:see noteML - [facility] LBUA (CLEAN or CATCH) MAINFRAME APPLICATIONS DEVELOPER or MICRO IF IND. Reviewed date:11/14/2024 02:43:57 PM Interpretation: Performing Lab: Notes/Report: [facility] ,Color UrineLT. YELLOWYELLOWClarity UrineSL CLOUDYCLEARSpecific [place] Urine >=1.0301.005-1.025pH Urine6.05.0-9.0Protein Hcmdf48SUR/TRACE mg/dLGlucose Urine UANEGATIVENEGATIVE mg/dLBilirubin UrineNEGATIVENEGATIVEKetones UrineNEGATIVE NEGATIVE mg/dLBlood UrineLARGENEGATIVENitrite UrineNEGATIVENEGATIVEUrobilinogen Urine0.20.2-1.0 EU/dLLeukocyte Esterase UrineMODERATENEGATIVEUrine Microscopic IndicatedYESPerforming Lab:see noteML - [facility] LBPROF 14(COMP METB) Reviewed date:11/14/2024 02:43:57 PM Interpretation: Performing Lab: Notes/Report: [facility] ,Ykbriw961326-187 mmol/LPotassium3.83.5-5.1 mmol/ETdbnwzlb13231-402 mmol/LCarbon Wfnphdh38.321.0-32.0 mmol/LAnion Gap14.6Fepmmtp48142-720 mg/dLBlood Urea Rmdgmcbw21.07.0-18.0 mg/dLCreatinine0.870.55-1.02 mg/dLEstimated GFR ( Jody>60>=60 mL/min/1.73m 2Estimated GFR (Non- Gosia>60>=60 mL/min/1.73m 2BUN Creatinine Ratio24.4Bwweupk8.18.5-10.1 mg/dLBilirubin Total0.30.2-1.0 mg/dL Aspartate Amino Wpqobpugcbl3249-71 U/LAlanine Otkbgmmonrduvgid5317-88 U/L Alkaline Kqamqljrswo04162-421 U/LTotal Protein7.26.4-8.2 g/dLAlbumin Level3.3 3.4-5.0 g/dLGlobulin3.9Albumin Globulin Ratio0.8Performing Lab:see noteML - [facility] LBCBC AUTO DIFF Reviewed date:11/14/2024 02:43:57 PM Interpretation: Performing Lab: Notes/Report: [facility] ,White Blood Count10.74.0-11.0 10 3/uLRed Blood Count4.454.20-5.40 10 6/uL Teaqfqruel69.912.0-16.0 g/lFDzqdmfaogf48.736.0-48.0 %Mean Corpuscular Xijnjo22.2 81.0-99.0 fLMean Corpuscular Vhhcuwtxfa74.026.7-34.0 pgMean Corpuscular HGB Conc 32.529.9-35.2 g/dLRed Cell Distribution Width13.811.0-15.0 %Platelet Mmbae028 150-450 10 3/uLMean Platelet Volume9.09.5-13.5 fLNeutrophils Percent Auto81.4 43.0-75.0 %Lymphocytes Percent Auto13.420.5-60.0 %Monocytes Percent Auto2.61.7- 12.0 %Eosinophils Percent Auto1.70.9-7.0 %Basophils Percent Auto0.50.2-2.0 % Immature Granulocytes Pct Auto0.40.0-0.5 %Neutrophils Absolute Auto8.71.4-6.5 10 3/uLLymphocytes Absolute Auto1.41.2-3.8 10 3/uLMonocytes Absolute Auto0.30.3- 0.8 10 3/uLEosinophils Absolute Auto0.20.0-0.7 10 3/uLBasophils Absolute Auto0.1 0.0-0.1 10 3/uLImmature Granulocytes Abs Auto0.040.00-0.03 10 3/uLPerforming Lab:see noteML - [facility] Reason For Referral No Information Medications Medication SIG (Take, Route, Frequency, Duration) Notes Start Date End Date Status Levothyroxine Sodium 50 MCG TAKE 1 TABLET BY SUSAN EVERY DAY; Duration: 90 ActiveLiothyronine Sodium 5 MCG2 tablet on an empty stomach Orally Once a day; Duration: 90 daysActiveCVS Esomeprazole Magnesium 20 MGTAKE 2 CAP Orally Once a day; Duration: 21 daysActiveDiclofenac Sodium 75 MGTAKE 1 TABLET BY MOUTH TWICE A DAY; Duration: 30ActiveDicyclomine HCl 20 MGTAKE 1 TABLET BY MOUTH TWICE A DAY; Duration: 90ActiveLisinopril 40 MG1 tablet Orally daily; Duration: 90 days ActiveMupirocin 2 %1 application Externally Twice a day; Duration: 5 days 5Active Immunizations Vaccine Route Administration Date Status Comme nts Flu, Flucelvax (46255) 6 mos and older, single-dose syringe (5671-4480) IM Intramuscular 03/11/2025 Administered Social History Tobacco [...] in the past year?Less than monthly (1 point)Viwllv9Nqrqdfnvoqboaz NegativeAUDIT-C (Standard) Question Answer Notes Did you have a drink containing alcohol in the p ast year? No Gfvagf6WgizbyvsivndwpCupprmyd Problems Problem Type SNOMED Code ICD Code Onset Dates Problem Status W/U Status Risk Notes Problem Low back pain (479891561) Low back pain ( M54.5) ActiveconfirmedProblemHypothyroidism (52198737)Hypothyroidism, unspecified (E03.9)ActiveconfirmedProblemChronic pain (06825283)Other chronic pain (G89.29) ActiveconfirmedProblemOsteoarthritis of knee (381493322)Unilateral primary osteoarthritis, left knee (M17.12)ActiveconfirmedProblemAcute tear of medial meniscus of left knee (disorder) (27410693679941850)Complex tear of medial meniscus, current injury, left knee, initial encounter (S83.232A)Activeconfirmed ProblemChest pain (19866396)Chest pain (R07.9)ActiveconfirmedProblemHypertension (25250847)Hypertension (I10)ActiveconfirmedProblemEczema (47089808)Eczema (L30.9)ActiveconfirmedProblemOsteoarthritis of knee (185960863)Knee osteoarthritis (M17.9)ActiveconfirmedProblemThyroid nodule (222418588)Thyroid nodule (E04.1)ActiveconfirmedProblemWell adult (887825964)Well adult (Z00.00) ActiveconfirmedProblemSeasonal allergic rhinitis (083193710)Seasonal allergic rhinitis (J30.2)ActiveconfirmedProblemChest wall pain (389718766)Chest wall pain (R07.89)ActiveconfirmedProblemMultinodular goiter (012534287)Multinodular goiter (E04.2)ActiveconfirmedProblemDiverticula of intestine (61613174) 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)ActiveconfirmedProblemRenal cyst (750011989) Renal cyst (N28.1)ActiveconfirmedProblemGastric reflux (178065780)Gastric reflux (K21.9)ActiveconfirmedProblemHypercholesterolemia (89638788) Hypercholesterolemia (E78.00)Activeconfirmed Vital Signs Temperature 98.1 degrees Fahrenheit 06/24/2024 Blood pressure ecrhtengq87 mm Hg03/11/20254396Fjasph05 in03/11/2025lood pressure npyoeaoj258 mm Hg03/11/20254838Wmuhbz382.4 lbs105/11/2024BMI39.67 kg/m203/11/2025 Encounters Encounter Location Date Provider Diagnosis [address] [address] 03/11/2025 Orion Hoy Well adult Z00.00 ; Hypertension I10 ; Bilateral primary osteoarthritis of knee M17.0 and Encounter for immunization Z23 [facility] [address] [place] [address] 06/24/2024 Orion Hoy Right flank pain R10 .9 ; UTI (urinary tract infection), uncomplicated N39.0 and Dysuria R30.0 [facility] [address] [place] [address] 11/14/2024 Orion Hoy [facility] [place] [address] 11/16/2024[facility] [place] [address]Doug HoyHypothyroidism, unspecified E03.9 Assessments Encounter Date Diagnosis (ICD Code) Assessment Notes Treatment Notes Treatment Clinical Notes Section Notes 06/24/2024 Right flank pain (ICD-10 - R10.9 ) 03/11/2025Well adult (ICD-10 - Z00.00)03/11/2025Hypertension (ICD-10 - I10) 03/12/2025Hypothyroidism, unspecified (ICD-10 - E03.9)03/11/2025ilateral primary osteoarthritis of knee (ICD-10 - M17.0)06/24/2024UTI (urinary tract infection), uncomplicated (ICD-10 - N39.0)Drink [...] until they are finished. You can use uegj-whc-qohcpnq acetaminophen or ibuprofen if needed for pain. You should follow up with your Primary Care Physician or return to clinic if not improving in the next 3-5 days.06/24/2024Dysuria (ICD-10 - R30.0)03/11/2025Encounter for immunization (ICD-10 - Z23)03/11/2025Otherknee injetions today Plan Of Treatment Pending Test Test Name Order Date CMP (COMPLETE METABOLIC PANEL) 4 CMP (COMPLETE METABOLIC PANEL) 3 HEMOGLOBIN A1C (GLYCO) 09/06/2022 HEMOGLOBIN A1C (GLYCO) 03/11/2025 HEMOGLOBIN A1C (GLYCO) 09/01/2023 IRON, TOTAL 03/11/2025 LIPID PANEL (CHOL/TRIG/HDL/LDL) 03/11/20 25 LIPID PANEL (CHOL/TRIG/HDL/LDL) 09/01/19 24 LIPID PANEL (CHOL/TRIG/HDL/LDL) 09/07/19 23 CBC WITH DIFF (EXP 02/2025) 09/06/2022 CBC WITH DIFF (EXP 02/2025) 09/01/2023 XR Knee LT (3 views) * [...] 2 V 02/11/2024 THYROID PANEL (T4/TSH/FREE T3) 5 THYROID PANEL (T4/TSH/FREE T3) 4 THYROID PANEL (T4/TSH/FREE T3) 3 THYROID PANEL (T4/TSH/FREE T3) 5 MG MAMM DIAGNOSTIC 3D [place] CAD 02/17/2024 BI US BREAST COMPLETE LEFT 02/11/2024 CMP (COMP MET FONSECA) w/eGFR CKD-EPI 2024 CBC WITH DIFF 03/11/2025 Insurance Providers Payer Name Payer Address Payer Phone Subscriber Number Group Number Insured Name Patient Relationship to Insured Coverage Start Date Coverage End Date MMO [employer] [address] [place] [address] [id number] Corey Marcos Spouse - patient is the spouse of the insured Medications Administered Medication Instructions Date of Administration Dosage Notes Lidocaine HCl mLmethylPREDNISolone Tekajel64/14/8854780 mg Medical (General) History Medical History History ICD Code Chest pain R07.9 Diverticula of intestine K57.30 Eczema L30.9 Gastric reflux K21.9 Multinodular goiter E04.2 Low back pain M54.5 Renal cyst N28.1 Seasonal allergic rhinitis J30.2 Thyroid nodule E04.1 Pyelonephritis N12 Kidney calculi N20.0 Surgical History Surgery Date(Month/Year) Cystoscopy with stent removal LithotripsyEGD/Colonoscopy08/26/20186865Dzlhcsmwzol03/25
== END 2025-03-23 07:20 | disposition home or self-care (01) ==
LOC: MAMMO 07:19
PROVIDERS: PCP Family Medicine; Visit Provider Family Medicine
DX: Z12.31 Encounter for screening mammogram for malignant neoplasm of breast (principal); Z80.42 Family history of malignant neoplasm of prostate; Z80.8 Family history of malignant neoplasm of other organs or systems
CPT/HCPCS: 77063; 77067